=== PATIENT | female | born 1955 | race American Indian/Alaskan Native ===

== ENCOUNTER 2020-10-19 21:08 | Emergency (ER) | payer OTHER, SELFPAY ==
[2020-10-19 21:10] VITALS: BP 137/77; PULSE 93; RESP 18; TEMP 36.7; O2SAT 97; BMI 35.2
--- NOTE | 2020-10-19 21:13 | ED.GENADULT ---
HPI - General Adult General Chief complaint: General Medical Stated complaint: HYPERTENSION Time Seen by Provider: 10/19/20 21:12 Source: EMS Mode of arrival: EMS Limitations: no limitations History of Present Illness HPI narrative: Patient history of anxiety has not take her Ativan today, complaining of increased anxiety blood pressure was elevated when EMS reached 170/110 on arrival blood pressure is 137/77 patient does not have any history of hypertension her blood pressure to school high when she is stressed out. Patient ran out of her Ativan for last 3 days unable to sleep increased stress as 3 family members of COVID Related Data Previous Rx's Medication Instructions Recorded lorazepam [Ativan] 1 mg PO BEDTIME PRN #5 tab 10/19/20 Allergies Allergy/AdvReac Type Severity Reaction Status Date / Time No Known Allergies Allergy Unverified 07/04/20 19:52 [No Known Allergies*] Review of Systems Review of Systems: Constitutional : No Fever, No Chills ENT/Mouth : No Ear Pain, No Nasal Congestion, No sore throat Eyes: No Eye Pain, No Swelling, No Redness Cardiovascular : No Chest Pain, No SOB Respiratory : No Cough, No Sputum, No Dyspnea Gastrointestinal : No Nausea, No Vomiting, No Diarrhea, No Hematochezia, No Melena Genitourinary : No Dysuria, No Urinary Frequency, No Hematuria Musculoskeletal : No Myalgias Skin : No Skin Lesions, No rash Neuro : No Weakness, No Numbness, No Paresthesias, No Dizziness, No Headache Psych : positive Anxiety, neg Depression, neg SI/HI Heme/Lymph: No Lymphadenopathy Endocrine : No Polyuria, No Polydipsia PMFSH Past Medical History Medical History Anxiety Arthritis Fibromyalgia HTN (hypertension) Osteoarthritis Social History Social History Alcohol intake: never Smoking Status: Former smoker Smoked in Last 30 Days: No Use of substances other than those prescribed or required for medical reasons: No Advance Directives: No Advance Directives Information Provided: No Physical Exam Vital Signs: Vital Signs: Last Vital Signs Temp 98.0 F 10/19/20 21:10 Pulse 93 10/19/20 21:10 Resp 18 10/19/20 21:10 BP 137/77 01/02/21 21:10 Pulse Ox 97 10/19/20 21:10 Body Mass Index 35.2 Appearance: Alert. Oriented X3. No acute distress. Very Anxious Eyes: Pupils equal, round and reactive to light. ENT: Pharynx normal. Neck: Normal inspection. Neck supple. CVS: Normal heart rate and rhythm. Pulses normal. Respiratory: No respiratory distress. Breath sounds normal. Abdomen: Soft and nontender. Bowel sounds are present, no mass palpable, no CVA tenderness Skin: Skin warm and dry. Normal skin color. Normal skin turgor. Extremities: No lower extremity edema. Neuro: Oriented X 3. No motor deficit. No sensory deficit. Discharge Plan Discharge Clinical Impression: Anxiety Patient Disposition: Home, Self-Care Instructions: Anxiety (ED) Additional Instructions: Take medication as prescribed and follow-up with PCP Prescriptions: New lorazepam [Ativan] 1 mg tablet 1 mg PO BEDTIME PRN (Reason: anxiety) Qty: 5 RF: 0 Interventions: ED Discharge Assessment Last Done: 10/19/20 21:56 Discharge Date/Time: 10/19/20 21:57
[2020-10-19] MEDS: diphenhydrAMINE HCL 25 MG TABLET PO (21:51)
[2020-10-19] MEDS: LORazepam 1 MG TABLET PO (21:51)
== END 2020-10-19 21:57 | disposition home or self-care (01) ==
PROVIDERS: Emergency Provider Internal Medicine
DX: F41.9 Anxiety disorder, unspecified (principal); I10 Essential (primary) hypertension; Z72.89 Other problems related to lifestyle; Z63.4 Disappearance and death of family member
CPT/HCPCS: 99283; 99284; Q0163

== ENCOUNTER 2021-05-17 17:09 | Emergency (ER) | payer OTHER, SELFPAY ==
--- NOTE | ~2021-05-17 | XR_ITS ---
EXAMINATION: XR CHEST, 2 VIEWS CLINICAL INFORMATION: Pain COMPARISON: None TECHNIQUE: PA and lateral views of the chest were obtained. FINDINGS: Linear opacity in the lateral aspect of the left lung base likely corresponds to pleural parenchymal scarring or plate like atelectasis. No consolidation, pneumothorax, pleural effusion. Cardiac and mediastinal contours are normal. Pulmonary vasculature is normal. No acute osseous findings. XR/XR chest 2V IMPRESSION: No acute cardiopulmonary findings. Linear platelike atelectasis vs. scarring in the left lung base.
--- NOTE | ~2021-05-17 | CT_ITS ---
EXAMINATION: CT CERVICAL SPINE WITHOUT CONTRAST CLINICAL INFORMATION: Pain status post injection. COMPARISON: None TECHNIQUE: Multidetector volumetric imaging was obtained through the cervical spine without contrast. Multiplanar reformatted images in coronal and sagittal orientations were submitted. This CT examination was performed using dose optimization techniques as appropriate, variously including the following: *Automated exposure control *Adjustment of mA and/or kV according to patient size (this includes techniques or standardized protocols for targeted exams where dose is matched to indication/reason for exam; i.e. extremities or head) *Use of iterative reconstruction technique DLP: 497 mGy-cm FINDINGS: Vertebral body heights are normal. No fractures of the vertebral bodies or posterior elements. Reversal of the normal cervical lordosis is likely positional or degenerative. No vertebral body or posterior element subluxation. Small marginal osteophytes are present at the articulations of the dens and the anterior arch of C1. The craniocervical and atlantoaxial articulations are otherwise normal. Postsurgical changes of prior interbody fusion are evident at C4-C5, C5-C6, and C6-C7. There is solid osseous fusion at the C5-C6 level. No appreciable osseous union is present around the interbody grafts at C4-C5 and C6-C7. There is moderate degenerative disc disease at C3-C4 and around the grafts at the C4-C5 and C6-C7 levels. 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 There is multilevel facet arthropathy, most notably on the left at C3-C4 and T1-T2 and on the right at T1-T2. Neural foraminal encroachment is most notable at C5-C6 on the right and C3-C4 on the left. No significant paravertebral soft tissue swelling. Cervical soft tissues are unremarkable. Imaged portions of the lung apices are clear. CT/CT cervical spine wo con IMPRESSION: 1. No acute fracture in the cervical spine. 2. Status post interbody fusion from C4-C5 through C6-C7 without appreciable osseous bridging across the interbody spaces at C4-C5 and C6-C7. There is significant degenerative disc disease at these 2 levels in addition to C3-C4. 3. 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 4. Multilevel neural foraminal encroachment, most notably on the right at C5-C6 and at C3-C4 on the left.
[2021-05-17 17:20] VITALS: BP 153/78; PULSE 80; RESP 20; TEMP 36.1; O2SAT 97; BMI 31.6
--- NOTE | 2021-05-17 17:30 | ED.GENADULT ---
HPI - General Adult General Chief complaint: General Medical Stated complaint: SOB Source: patient and family Mode of arrival: ambulatory Limitations: no limitations History of Present Illness HPI narrative: 65-year-old female with past medical history of anxiety, arthritis, fibromyalgia, osteoarthritis, hypertension presents with 10/10 neck pain with body aches. Stated that she received a cortisone injection on 05/12/2021 from a [facility] pain management provider, feels that her symptoms have gotten worse and is asking for pain management. She stated that the last time she went to [facility] they gave her pain medication by IV which alleviated all of her pain. She states that she is unable to get comfortable and having a difficult time sleeping. Patient states to have pain in every part of her body, but denies fevers, chills, palpitations, dizziness, lightheadedness, dysuria, hematuria, edema, nausea, vomiting, diarrhea and constipation. Onset (ago): unknown Location: head, neck, chest, back, abdomen, pelvis, buttocks, upper extremity and lower extremity Severity: severe Severity scale (1-10): 10 Quality: aching Pain Consistency: constant Relieving factors: none Exacerbating factors: movement Associated symptoms: denies other symptoms Treatments prior to arrival: none Related Data Previous Rx's Medication Instructions Recorded lorazepam 1 mg tablet (Ativan) 1 mg PO BEDTIME PRN #5 tab 10/19/20 Allergies Allergy/AdvReac Type Severity Reaction Status Date / Time acetaminophen [From Tylenol] Allergy Shortness Verified 05/17/21 17:25 of Breath Review of Systems Review of Systems: Constitutional: No Fever, No Chills ENT/Mouth: No Ear Pain, No Hoarseness, No sore throat Eyes: No Eye Pain, No Swelling, No Redness, No Foreign Body Cardiovascular: No Chest Pain, No SOB Respiratory: No Cough, No Dyspnea Gastrointestinal: No Nausea, No Vomiting, No Diarrhea, No abdominal Pain Genitourinary: No Dysuria, No Hematuria Musculoskeletal: positive body pain, neck pain, No Myalgias, No Joint Swelling Skin: No Skin lacerations, No rash Neuro: No Weakness, No Numbness, No Paresthesias, No Loss of Consciousness, No Dizziness, No Headache Psych: No Anxiety/Panic, No Depression Heme/Lymph: no easy bruising, no Lymphadenopathy Endocrine: No Polyuria, No Polydipsia Yes all other systems are reviewed and are negative [facility] Past Medical History Attestation statement: The following information was validated with the patient. Source: old records reviewed Medical History Anxiety Arthritis Fibromyalgia HTN (hypertension) Osteoarthritis Social History Social History Alcohol intake: never Patient Tobacco Use Status: Never used Tobacco Use of substances other than those prescribed or required for medical reasons: No Advance Directives: No Advance Directives Information Provided: Yes Physical Exam Vital Signs: Vital Signs: Last Vital Signs Temp 97.8 F 05/17/21 19:40 Pulse 74 05/17/21 19:40 Resp 16 05/17/21 19:49 BP 138/73 05/17/21 19:40 Pulse Ox 99 05/17/21 19:40 Body Mass Index 31.6 Appearance: Alert. Oriented X3. Moderate distress. Eyes: Pupils equal, round and reactive to light. EOMI, sclera nonicteric ENT: Pharynx normal. Neck: Normal inspection. Neck supple. Cervical spine tender to palpation, please refer to course noted. CVS: Normal heart rate and rhythm. Pulses normal. Respiratory: No respiratory distress. Breath sounds normal. Abdomen: Soft and nontender. Skin: Skin warm and dry. Normal skin color. Normal skin turgor. Extremities: No lower extremity edema. Moves all extremities against resistance. Gait well balanced well coordinated. Neuro: No motor deficit. No sensory deficit. Cranial nerves 2-12 intact. Course Course Course Narrative: 65-year-old female presents with 10/10 pain to her entire body after a cortisone injection to her neck on 05/12/2021. Stated that she has been followed by a ceramic painter at [facility], has had multiple injections to her spine cervical spine in the past however this 1 did not work. She is reporting 10/10 pain everywhere, upon my examination she reported that every part of her body that I physically touched had 10/10 pain. She is asking for Dilaudid because they gave it to her once at [facility] and it took all of her pain way. I did explain to her that Dilaudid was not recommended at this time. I will order CT scan of cervical spine, chest x-ray and lab values. Patient is ambulatory, moves all extremities against resistance, appears nontoxic and is afebrile. Vital signs are within normal limits with an elevated blood pressure of 153/78. Labs have an elevated white count of 16.6 which is consistent with cortisone injection, CT scan of spine shows chronic degenerative changes. Chest x-ray is negative. Patient is continuing to ask for Dilaudid, asking multiple persons for this medication. Multiple discussions with patient and daughter that she would not be receiving Dilaudid nor would she be receiving a prescription for pain management opioids. She does have a ceramic painter and was referred back to her PCP and or pain management. Patient was not receptive to education regarding opioids and that opioids are not ideal for chronic pain. Patient is dissatisfied with care. Medical Decision Making Differential Diagnosis Differential Diagnosis: Chronic pain, cervical spine fracture, osteonecrosis the spine, abscess Medical Records Medical records reviewed: Yes I reviewed the patient's medical records. Lab Data Lab results reviewed: Yes I reviewed the patient's lab results. Result diagrams: 05/17/21 18:13 05/17/21 18:14 Labs: Lab Results 05/17/21 05/17/21 Range/Units 18:13 18:14 WBC 16.6 H (4.8-10.8) X10*3/uL RBC 4.41 (4.20-5.50) X10*6/uL Hgb 13.8 (12.0-16.0) g/dl Hct 40.6 (37-47) % MCV 92.1 (80-98) fL MCH 31.3 (27.0-33.0) pg MCHC 34.0 (31.0-35.0) g/dl RDW 13.1 (11.0-16.0) % Plt Count 202 (160-400) X10*3/uL MPV Not Reportable Immature Gran % (Auto) 0.5 H (0.0-0.4) % Neut % (Auto) 76.9 H (45-73) % Lymph % (Auto) 14.1 L (20-40) % Archuleta % (Auto) 8.2 (2-11) % Eos % (Auto) 0.2 (0-4) % Baso % (Auto) 0.1 (0-2) % Lymph # (Auto) 2.3 (1.2-4.9) X10*3/uL Archuleta # (Auto) 1.4 H (0.1-1.2) X10*3/uL Eos # (Auto) 0.0 (0.0-0.4) X10*3/uL Baso # (Auto) 0.0 (0.0-0.2) X10*3/uL Abs Immat Gran (auto) 0.08 H (0.00-0.03) X10*3/uL Absolute Neuts (auto) 12.8 H (2.0-8.3) X10*3/uL Absolute Nucleated RBC 0.000 (0.0-0.012) X10*3/uL Nucleated RBC % (auto) 0.0 (0.0-0.2) /100WBC Sodium 140 (135-145) mmol/L Potassium 4.1 (3.3-5.1) mmol/L Chloride 105 (96-108) mmol/L Carbon Dioxide 24 (22-29) mmol/L Anion Gap 15 (12-20) BUN 18 H (9-16) mg/dL Creatinine 0.73 (0.5-1.4) mg/dL Estim Creat Clear Calc 72.6 Estimated GFR > 60 Random Glucose 111 (60-115) mg/dL Calcium 9.6 (8.4-10.2) mg/dL Imaging Data CT scan cervical spine: Attestation: I personally reviewed and interpreted this imaging study as follows: Radiologist's impression: CLINICAL INFORMATION: Pain status post injection.? COMPARISON: None? TECHNIQUE: Multidetector volumetric imaging was obtained through the cervical spine without contrast. Multiplanar reformatted images in coronal and sagittal orientations were submitted.? This CT examination was performed using dose optimization techniques as appropriate, variously including the following: *Automated exposure control *Adjustment of mA and/or kV according to patient size (this includes techniques or standardized protocols for targeted exams where dose is matched to indication/reason for exam; i.e. extremities or head) *Use of iterative reconstruction technique DLP: 497 mGy-cm FINDINGS: Vertebral body heights are normal. No fractures of the vertebral bodies or posterior elements. Reversal of the normal cervical lordosis is likely positional or degenerative. No vertebral body or posterior element subluxation. Small marginal osteophytes are present at the articulations of the dens and the anterior arch of C1. The craniocervical and atlantoaxial articulations are otherwise normal.? Postsurgical changes of prior interbody fusion are evident at C4-C5, C5-C6, and C6-C7. There is solid osseous fusion at the C5-C6 level. No appreciable osseous union is present around the interbody grafts at C4-C5 and C6-C7. There is moderate degenerative disc disease at C3-C4 and around the grafts at the C4-C5 and C6-C7 levels. 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 There is multilevel facet arthropathy, most notably on the left at C3-C4 and T1-T2 and on the right at T1-T2. Neural foraminal encroachment is most notable at C5-C6 on the right and C3-C4 on the left. No significant paravertebral soft tissue swelling. Cervical soft tissues are unremarkable. Imaged portions of the lung apices are clear. CT/CT cervical spine wo con IMPRESSION: 1. No acute fracture in the cervical spine. 2. Status post interbody fusion from C4-C5 through C6-C7 without appreciable osseous bridging across the interbody spaces at C4-C5 and C6-C7. There is significant degenerative disc disease at these 2 levels in addition to C3-C4. 3. 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 4. Multilevel neural foraminal encroachment, most notably on the right at C5-C6 and at C3-C4 on the left. Chest x-ray: Attestation: I personally reviewed and interpreted this imaging study as follows: Radiologist's impression: EXAMINATION: XR CHEST, 2 VIEWS CLINICAL INFORMATION: Pain COMPARISON: None TECHNIQUE: PA and lateral views of the chest were obtained. FINDINGS: Linear opacity in the lateral aspect of the left lung base likely corresponds to pleural parenchymal scarring or plate like atelectasis. No consolidation, pneumothorax, pleural effusion. Cardiac and mediastinal contours are normal. Pulmonary vasculature is normal. No acute osseous findings. XR/XR chest 2V IMPRESSION: No acute cardiopulmonary findings. Linear platelike atelectasis vs. scarring in the left lung base. Discharge Plan Discharge Clinical Impression: Neck pain Patient Disposition: Home, Self-Care Instructions: Fibromyalgia (ED), Neck Pain (ED), Chronic Neck Pain (DC) Additional Instructions: You were evaluated for generalized body pain after a neck injection. Your CT scan does not show any abscesses or acute findings requiring emergent intervention. Your CT scan does show degenerative disc disease which you have been being treated for by ceramic painter. Your chest x-ray is negative for acute findings. Your lab values indicate elevated white count, which is consistent with your recent cortisone injection. At this time, we cannot prescribe pain medications for you. Please continue to follow-up with pain management. Thank you for choosing this emergency department for evaluation. Please follow-up with primary care physician as needed. Return to the emergency department for any new, concerning, or worsening symptoms. Prescriptions: No Action lorazepam [Ativan] 1 mg tablet 1 mg PO BEDTIME PRN (Reason: anxiety) Qty: 5 RF: 0 Interventions: ED Discharge Assessment Last Done: 05/17/21 20:03 Discharge Date/Time: 05/17/21 20:05
[2021-05-17 18:17] VITALS: BP 135/75; PULSE 73; RESP 13; TEMP 36.5; O2SAT 98
[2021-05-17 18:22] LABS: Basophils Percent Auto 0.1 % (0-2); Eosinophils Percent Auto 0.2 % (0-4); Imm Gran Pct Auto 0.5 % (0.0-0.4); SCAN SMEAR FLAG 1
[2021-05-17 18:24] LABS: Hematocrit 40.6 % (37-47); Hemoglobin 13.8 g/dl (12.0-16.0); Imm Gran Abs Auto 0.08 X10*3/uL (0.00-0.03); Lymphocytes Absolute Auto 2.3 X10*3/uL (1.2-4.9); Lymphocytes Percent Auto 14.1 % (20-40); Mean Corpuscular Hemoglobin 31.3 pg (27.0-33.0); Mean Corpuscular Volume 92.1 fL (80-98); Monocytes Absolute Auto 1.4 X10*3/uL (0.1-1.2); Monocytes Percent Auto 8.2 % (2-11); Neutrophils Absolute Auto 12.8 X10*3/uL (2.0-8.3); Neutrophils Percent Auto 76.9 % (45-73); Platelet Count 202 X10*3/uL (160-400); Red Blood Count 4.41 X10*6/uL (4.20-5.50); Red Cell Distribution Width 13.1 % (11.0-16.0); White Blood Count 16.6 X10*3/uL (4.8-10.8)
[2021-05-17 18:29] LABS: MANUAL DIFF FLAG NO; PLT ABN DIST 1
[2021-05-17] MEDS: Morphine Sulfate 4 MG/ML CARTRIDGE IVPUSH (18:31)
[2021-05-17 18:41] LABS: Anion Gap 15 (12-20); Blood Urea Nitrogen 18 mg/dL (9-16); Calcium 9.6 mg/dL (8.4-10.2); Carbon Dioxide 24 mmol/L (22-29); Chloride 105 mmol/L (96-108); Creatinine Clr Calc Pharmacy 72.6; Estimated Glomerular Filt Rate > 60; Glucose Random 111 mg/dL (60-115); Potassium 4.1 mmol/L (3.3-5.1); Sodium 140 mmol/L (135-145)
[2021-05-17 18:44] VITALS: O2SAT 97
[2021-05-17 19:40] VITALS: BP 138/73; PULSE 74; RESP 16; TEMP 36.6; O2SAT 99
[2021-05-17 19:49] VITALS: RESP 16
[2021-05-17] MEDS: Morphine Sulfate 2 MG/ML CARTRIDGE IVPUSH (19:49)
[2021-05-17] MEDS: oxyCODONE HCl Immed Release 5 MG TABLET PO (19:49)
== END 2021-05-17 20:05 | disposition home or self-care (01) ==
PROVIDERS: Nurse Practitioner Family; Emergency Provider Emergency Medicine Emergency Medical Services
DX: M54.2 Cervicalgia (principal); I10 Essential (primary) hypertension; F41.9 Anxiety disorder, unspecified; M79.7 Fibromyalgia; Z79.899 Other long term (current) drug therapy
CPT/HCPCS: 36415; 71046; 72125; 80048; 85025; 96374; 96375; 96376; 99284; J2270; J2405

== ENCOUNTER 2021-11-18 12:55 | Outpatient (REF) | payer OTHER, SELFPAY ==
[2021-11-18 15:17] LABS: TSH reflex Free T4 0.92 uIU/mL (0.32-4.0)
== END 2021-11-18 12:56 | disposition home or self-care (01) ==
LOC: HO.HMGCLDS 12:55
PROVIDERS: Visit Provider Internal Medicine
DX: R03.0 Elevated blood-pressure reading, without diagnosis of hypertension (principal); F33.9 Major depressive disorder, recurrent, unspecified; E66.3 Overweight; F41.1 Generalized anxiety disorder
CPT/HCPCS: 36415; 84443

== ENCOUNTER → 2021-11-24 12:49 | Outpatient (BNVA) | payer OTHER, SELFPAY | PROVIDERS: PCP Internal Medicine; Visit Provider Internal Medicine | DX: M25.521 Pain in right elbow (principal); M79.18 Myalgia, other site | CPT/HCPCS: 20553; 20605; J3300 ==

== ENCOUNTER → 2022-01-19 08:03 | Outpatient (BNVA) | payer OTHER, SELFPAY | PROVIDERS: PCP Internal Medicine; Visit Provider Internal Medicine | DX: M79.18 Myalgia, other site (principal); M25.512 Pain in left shoulder; M25.522 Pain in left elbow | CPT/HCPCS: 20553; 99212 ==

== ENCOUNTER 2022-02-25 18:08 | Emergency (ER) | payer OTHER, SELFPAY ==
--- NOTE | ~2022-02-25 | CT_ITS ---
Indication: Trauma EXAMINATION: CT chest enhanced CT the abdomen Axial imaging with coronal and sagittal reformatted images. This CT examination was performed using dose optimization techniques as appropriate, variously including the following: *Automated exposure control *Adjustment of mA and/or kV according to patient size (this includes techniques or standardized protocols for targeted exams where dose is matched to indication/reason for exam; i.e. extremities or head) *Use of iterative reconstruction technique. Radiation dose is 610 and 302. There are no films to compare. CT chest; The thoracic inlet is within normal limits. No free fluid in the mediastinum. There is no bulky adenopathy. The hilar regions do not appear pathologically enlarged. Imaging the lung snyder. Right lung; There is no pneumothorax. There is no effusion. Mild dependent atelectasis. Minimal groundglass opacities. Left lung; No pneumothorax. There is no effusion. Mild basilar atelectasis and again some groundglass dependent changes. Review of the bone windows does not demonstrate evidence for fracture. Upper abdomen; Liver is within normal limits. Spleen is within normal limits. Region of the portal within normal limits. Area the pancreas grossly within normal limits. The adrenal glands grossly normal. There is no free fluid in the upper abdomen. Bladder is within normal limits. No acute finding in the kidneys. Pelvis parapelvic cystic formation versus mild hydronephrosis but the ureter is not dilated. Consider ultrasound to further evaluate. The bowel pattern is nonobstructing. Again no free fluid is noted. No suspicious finding in the pelvis. Mildly prominent uterine structure for age. There is no bulky adenopathy. Calcified vasculature is noted. Scattered diverticula disease. Review of the bone windows demonstrates hardware in the lower lumbar sacral spine. Anterolisthesis of L5 on S1. Some loss of superior height at L5 L3 and and loss of inferior height at L1 and L2 may represent the patient's baseline. CT/CT abdomen pelvis wo con IMPRESSION: No suspicious finding chest abdomen pelvis to suggest visceral injury. In the chest some patchy areas of groundglass change and atelectasis are noted in the dependent lung zones. No pneumothorax or effusion. No fracture. No acute finding in the abdomen pelvis. No free fluid. The bowel pattern is within normal limits. Hardware in the lower lumbar sacral spine and several areas of loss of vertebral bodies central height which may well be chronic. Mild acute compression cannot be completely excluded. There are no previous exams to compare. If further evaluation is warranted consider MRI. Parapelvic cysts versus mild central hydronephrosis in the left kidney. Recommend ultrasound for full evaluation
--- NOTE | ~2022-02-25 | CT_ITS ---
EXAMINATION: CT LUMBAR SPINE WITHOUT CONTRAST CLINICAL INFORMATION: Fall down stairs. Lumbar spine tenderness. COMPARISON: None TECHNIQUE: Multidetector helical imaging acquired in the axial plane with generation of reformatted acquisitions. This CT examination was performed using dose optimization techniques as appropriate, variously including the following: *Automated exposure control. *Adjustment of mA and/or kV according to patient size (this includes techniques or standardized protocols for targeted exams where dose is matched to indication/reason for exam; i.e. extremities or head). *Use of iterative reconstruction technique. DLP: 473 mGy-cm FINDINGS: The patient is status post previous posterior lumbar fusion with hardware instrumentation from the L4 through the S1 levels. No obvious hardware fracture or periprosthetic lucency is seen. There is a solid arthrodesis demonstrated from the L4 through the S1 levels posterolaterally. There are mild endplate concavities at the L4 level and affecting the superior endplate of L5 which are age-indeterminate. Post laminectomy changes noted at the L4-L5 and L5-S1 levels. There is a mild anterior subluxation at L5-S1 with endplate spurring and vacuum disc phenomenon. Significant foraminal narrowing evident at the L5-S1 level bilaterally. There is an age-indeterminate superior endplate compression deformity as well at the L3 level. Mild retrosubluxation noted at the L2-L3 level with endplate spurring, a diffuse disc bulge, and facet arthropathy resulting in severe central canal stenosis and thecal sac compression. Although not well assessed due to hardware artifacts, there is suspected moderate central canal stenosis at the L3-L4 level. Diffuse disc bulge noted at the L1-L2 level with endplate spurring and facet arthropathy resulting in mild central canal stenosis and [id number] foraminal narrowing. There are mild inferior endplate concavities at the T12 and L1 levels with degenerative Schmorl's nodes. Parapelvic renal cysts noted on the left side. The lung bases are grossly clear. CT/CT lumbar spine wo con IMPRESSION: 1. Multilevel age-indeterminate mild endplate concave deformities in the thoracolumbar spine for which the possibility of a subtle acute compression fracture cannot be ruled out. Status post posterior lumbar instrumented fusion with a solid arthrodesis from the L4 through the S1 levels. 2. Retrosubluxation and spondylosis at the L2-L3 level resulting in severe central canal stenosis. Moderate central canal stenosis suspected at the L3-L4 level. Vacuum disc phenomenon and anterolisthesis with severe bilateral foraminal narrowing at the L5-S1 level.
[2022-02-25 18:16] VITALS: BP 147/55; PULSE 75; O2SAT 99
[2022-02-25 18:22] VITALS: BP 137/60; PULSE 68; RESP 18; TEMP 36.7; O2SAT 97; BMI 33.0
--- NOTE | 2022-02-25 18:33 | ED.FALL ---
HPI - Fall General Chief Complaint: Fall Stated Complaint: fall Time Seen by Provider: 02/25/22 18:33 Source: patient Mode of arrival: EMS Limitations: no limitations History of Present Illness HPI Narrative: 66-year-old female who presents emergency department for evaluation of back pain and chest pain after falling down stairs at home. Patient states she was going down her stairs when she slipped and fell landing on her back. She states that she fell down approximately 7 steps. She denies hitting her head or losing consciousness. She is only complaining of the pain in her upper and lower back. She states that the pain is a constant, sharp pain which is 10/10, the pain is worse with movement. She denies headache, nausea, vomiting, neck pain. She states that her chest does her but she denies shortness of breath. MD complaint: fall Onset (ago): hour(s) (1) Fall from: down stairs (#) (7) Fall witnessed: no Place fall occurred: home Loss of consciousness: none Prolonged down time: no Symptoms prior to fall: none Context: tripped/slipped Location of injury: chest and back Severity: severe Severity scale (1-10): 10 Quality: sharp Associated symptoms (after fall): denies Related Data Previous Rx's Medication Instructions Recorded diclofenac sodium 1 % topical gel 4 g TOPICAL QID #100 g 12/25/21 (Voltaren Arthritis Pain) albuterol sulfate 0.63 mg/3 mL 0.63 mg (3 mL) INHALATION QID PRN 01/21/22 solution for nebulization 90 Days #75 ml albuterol sulfate 90 mcg/actuation 1 inh INHALATION QID PRN 30 Days 01/21/22 aerosol inhaler (ProAir HFA) #18 g cyclobenzaprine 5 mg tablet 5 mg PO BEDTIME PRN 90 Days #90 tab 01/21/22 diclofenac sodium 1 % topical gel 2 g TOPICAL QID 30 Days #100 g 01/21/22 (Voltaren Arthritis Pain) lisinopril 5 mg tablet 5 mg PO DAILY 90 Days #90 tab 01/21/22 meloxicam 15 mg tablet 15 mg PO DAILY 90 Days #90 tab 01/21/22 montelukast 10 mg tablet 10 mg PO DAILY 90 Days #90 tab 01/21/22 pantoprazole 40 mg tablet,delayed 40 mg PO DAILY 90 Days #90 tab 01/21/22 release simvastatin 20 mg tablet 20 mg PO DAILY 90 Days #90 tab 01/21/22 Blood pressure monitor #1 ea 01/26/22 nebulizer and compressor (Comp-Air #1 ea 01/26/22 Nebulizer Compressor) prednisone 20 mg tablet See Rx Instructions PO ONCE 12 02/17/22 Days #17 tab capsicum oleoresin 0.025 % topical See Rx Instructions TOPICAL 02/24/22 cream .B.i.d. PRN 90 Days #120 g duloxetine 30 mg capsule,delayed 30 mg PO DAILY 30 Days #30 cap 02/24/22 release (Cymbalta) Allergies Allergy/AdvReac Type Severity Reaction Status Date / Time acetaminophen [From Tylenol] Allergy Shortness Verified 01/19/22 08:10 of Breath PMFSH Past Medical History Medical History Anxiety Arthritis Fibromyalgia HTN (hypertension) Myofascial muscle pain Osteoarthritis Family History Family History Other Mental health disorder Social History Social History Housing: Apartment Alcohol intake: never Patient Tobacco Use Status: Never used Tobacco Advance Directives: No Advance Directives Information Provided: No Current occupational status: unemployed Physical Exam Vital Signs: Vital Signs: Last Vital Signs Temp 98.8 F 02/25/22 21:02 Pulse 63 02/25/22 21:02 Resp 98 H 02/25/22 21:02 BP 140/73 H 02/25/22 21:02 Pulse Ox 98 02/25/22 21:02 BMI result Body Mass Index 33.0 Const: Other: Awake, alert, female patient, very pleasant cooperative, she does appear to be in distress secondary to her pain HEENT: Head: Yes normal to inspection, Yes normocephalic and Yes atraumatic Ears: external ears normal General nose exam: Normal external nose present Face and sinus: Yes normal facial exam Mouth: Normal oral and palatal mucosa present Throat: Yes posterior oropharynx normal Eyes: General: appearance normal, both eyes and all related structures Pupils: Equal, round and reactive pupils present Neck: Neck: Yes normal visual inspection, Yes no lymphadenopathy, Yes trachea midline and Yes supple Chest: Other: Patient has tenderness palpation of her posterior chest bilaterally, there is no crepitus, no ecchymosis Resp: Effort & Inspection: normal respiratory effort and able to speak in complete sentences Auscultation: clear to auscultation bilaterally Cardio: Rate: regular rate Rhythm: regular rhythm Heart sounds: S1 normal heart sound present, S2 normal heart sound present and no murmurs GI: Inspection: Yes normal to inspection Palpation (GI): Soft to palpation, nontender and no guarding Auscultation: normal bowel sounds Back/Spine/Pelvis: Other: Tenderness palpation of the patient's lumbar and sacral spine, also tenderness palpation of her lumbar sacral paraspinal muscles with no ecchymosis noted Skin: General skin exam: no rashes or lesions noted Neuro: Cranial nerves: Yes CN's II-XII intact bilaterally and Yes Equal, round and reactive pupils present Cognition (Neuro): normal cognition Motor exam (neuro): 5/5 motor strength present throughout Extrem: General: Yes normal to inspection Psych: Appearance: grossly normal Speech and movement: Normal speech and movement present Affect: normal affect Attitude: cooperative Thought process: Normal thought process present Thought content: Normal thought content present Course Course Course Narrative: 66-year-old female who presents emergency department for evaluation of a trip and fall at home down 7 steps. Patient had no loss of consciousness, no head injury. She is currently complaining of back pain only. Vital signs were normal. Patient does have posterior chest wall tenderness, tenderness palpation of the lumbar sacral paraspinal muscles and spine. Her neurologic exam was nonfocal. I did order a CT scan of the patient's chest abdomen pelvis as well as CT scan the patient's lumbar sacral spine. Patient's pain was treated with Dilaudid 1 mg IV and Benadryl 25 mg IV. 2116: Laboratory evaluation: CBC and CMP were unremarkable ETOH was below detectable limits. The patient's CT scan of the chest, abdomen, pelvis and the CT scan of the lumbar sacral spine is also pending. The patient is resting comfortably after receiving IV Dilaudid and Benadryl. At the end of my shift patient's care was turned over my colleague, Dr. Holley Quintanilla. - Fall Lab Data Result diagrams: 02/25/22 18:45 02/25/22 18:45 Labs: Lab Results 02/25/22 02/25/22 02/25/22 Range/Units 18:45 18:45 18:45 WBC 7.0 (4.8-10.8) X10*3/uL RBC 4.27 (4.20-5.50) X10*6/uL Hgb 13.1 (12.0-16.0) g/dl Hct 39.1 (37.0-47.0) % MCV 91.6 (80.0-98.0) fL MCH 30.7 (27.0-33.0) pg MCHC 33.5 (31.0-35.0) g/dl RDW 13.5 (11.0-16.0) % Plt Count 249 (160-400) X10*3/uL MPV 11.3 (9.4-12.3) fL Immature Gran % (Auto) 0.3 (0.0-0.4) % Neut % (Auto) 59.1 (45-73) % Lymph % (Auto) 32.0 (20-40) % [facility] % (Auto) 8.0 (2-11) % Eos % (Auto) 0.3 (0-4) % Baso % (Auto) 0.3 (0-2) % Lymph # (Auto) 2.2 (1.2-4.9) X10*3/uL [facility] # (Auto) 0.6 (0.1-1.2) X10*3/uL Eos # (Auto) 0.0 (0.0-0.4) X10*3/uL Baso # (Auto) 0.0 (0.0-0.2) X10*3/uL Abs Immat Gran (auto) 0.02 (0.00-0.03) X10*3/uL Absolute Neuts (auto) 4.1 (2.0-8.3) x10*3/uL Absolute Nucleated RBC 0.000 (0.0-0.012) X10*3/uL Nucleated RBC % (auto) 0.0 (0.0-0.2) /100WBC PT 11.3 (9.9-13.0) SEC INR 1.0 (0.9-1.1) APTT 30.8 (24.1-38.0) SEC Sodium 142 (135-145) mmol/L Potassium 3.7 (3.3-5.1) mmol/L Chloride 110 H (96-108) mmol/L Carbon Dioxide 27 (22-29) mmol/L Anion Gap 9 L (12-20) BUN 12 (9-16) mg/dL Creatinine 0.66 (0.5-1.4) mg/dL Estim Creat Clear Calc 81.0 Estimated GFR > 60 Random Glucose 103 (60-115) mg/dL Calcium 9.0 D (8.4-10.2) mg/dL Total Bilirubin 0.4 (0.0-1.0) mg/dL AST 13 (5-31) U/L ALT 6 (0-31) U/L Alkaline Phosphatase 79 (39-117) U/L Total Protein 6.1 L (6.5-8.0) g/dL Albumin 3.6 (3.5-5.0) g/dL Lipase 29 (8-78) U/L Ethyl Alcohol mg/dL 02/25/22 Range/Units 18:45 WBC (4.8-10.8) X10*3/uL RBC (4.20-5.50) X10*6/uL Hgb (12.0-16.0) g/dl Hct (37.0-47.0) % MCV (80.0-98.0) fL MCH (27.0-33.0) pg MCHC (31.0-35.0) g/dl RDW (11.0-16.0) % Plt Count (160-400) X10*3/uL MPV (9.4-12.3) fL Immature Gran % (Auto) (0.0-0.4) % Neut % (Auto) (45-73) % Lymph % (Auto) (20-40) % [facility] % (Auto) (2-11) % Eos % (Auto) (0-4) % Baso % (Auto) (0-2) % Lymph # (Auto) (1.2-4.9) X10*3/uL [facility] # (Auto) (0.1-1.2) X10*3/uL Eos # (Auto) (0.0-0.4) X10*3/uL Baso # (Auto) (0.0-0.2) X10*3/uL Abs Immat Gran (auto) (0.00-0.03) X10*3/uL Absolute Neuts (auto) (2.0-8.3) x10*3/uL Absolute Nucleated RBC (0.0-0.012) X10*3/uL Nucleated RBC % (auto) (0.0-0.2) /100WBC PT (9.9-13.0) SEC INR (0.9-1.1) APTT (24.1-38.0) SEC Sodium (135-145) mmol/L Potassium (3.3-5.1) mmol/L Chloride (96-108) mmol/L Carbon Dioxide (22-29) mmol/L Anion Gap (12-20) BUN (9-16) mg/dL Creatinine (0.5-1.4) mg/dL Estim Creat Clear Calc Estimated GFR Random Glucose (60-115) mg/dL Calcium (8.4-10.2) mg/dL Total Bilirubin (0.0-1.0) mg/dL AST (5-31) U/L ALT (0-31) U/L Alkaline Phosphatase (39-117) U/L Total Protein (6.5-8.0) g/dL Albumin (3.5-5.0) g/dL Lipase (8-78) U/L Ethyl Alcohol < 10 mg/dL Discharge Plan Discharge Clinical Impression: Fall (on) (from) other stairs and steps, initial encounter Chest wall contusion Qualifiers: Encounter type: initial encounter Laterality: unspecified laterality Qualified Code(s): S20.219A - Contusion of unspecified front wall of thorax, initial encounter Back contusion Qualifiers: Encounter type: initial encounter Laterality: unspecified laterality Qualified Code(s): S20.229A - Contusion of unspecified back wall of thorax, initial encounter Patient Disposition: Still a Patient Prescriptions: No Action diclofenac sodium [Voltaren Arthritis Pain] 1 % gel 4 g topical QID Qty: 100 0RF Rx Instructions: apply to single knee, ankle, foot; for foot includes sole/toes/top of foot NOT TO BE USED AT THE SAME TIME MELOXICAM (DME) nebulizer and compressor [Comp-Air Nebulizer Compressor] Device See Rx Instructions .Route Qty: 1 0RF Rx Instructions: As directed (DME) Blood pressure monitor See Rx Instructions .Route .MEDSUPPLY Qty: 1 0RF Rx Instructions: As directed prednisone 20 mg tablet See Rx Instructions PO ONCE 12 Days Qty: 17 0RF Rx Instructions: PO once; 3 tabs for 2 days, then 2 tabs for 3 days, then 1 tab for 3 days, then half tab for 4 days duloxetine [Cymbalta] 30 mg capsule,delayed release(DR/EC) 30 mg PO DAILY 30 Days Qty: 30 0RF capsicum oleoresin 0.025 % cream See Rx Instructions topical .B.i.d. PRN (Reason: Arthritic pain) 90 Days Qty: 120 3RF Rx Instructions: topical .B.i.d. PRN; montelukast 10 mg tablet 10 mg PO DAILY 90 Days Qty: 90 1RF cyclobenzaprine 5 mg tablet 5 mg PO BEDTIME PRN (Reason: muscle spasm) 90 Days Qty: 90 0RF pantoprazole 40 mg tablet,delayed release (DR/EC) 40 mg PO DAILY 90 Days Qty: 90 1RF simvastatin 20 mg tablet 20 mg PO DAILY 90 Days Qty: 90 1RF lisinopril 5 mg tablet 5 mg PO DAILY 90 Days Qty: 90 1RF albuterol sulfate [ProAir HFA] 90 mcg/actuation HFA aerosol inhaler 1 inh inhalation QID PRN (Reason: shortness of breath or wheezing) 30 Days Qty: 18 3RF meloxicam 15 mg tablet 15 mg PO DAILY 90 Days Qty: 90 0RF diclofenac sodium [Voltaren Arthritis Pain] 1 % gel 2 g topical QID 30 Days Qty: 100 4RF Rx Instructions: apply to single elbow, wrist or hand; for hand includes palm/fingers/back of hand albuterol sulfate 0.63 mg/3 mL solution for nebulization 0.63 mg inhalation QID PRN (Reason: shortness of breath or wheezing) 90 Days Qty: 75 0RF
[2022-02-25 18:54] LABS: MANUAL DIFF FLAG NO
[2022-02-25 19:00] LABS: Basophils Percent Auto 0.3 % (0-2); Eosinophils Percent Auto 0.3 % (0-4); Hematocrit 39.1 % (37.0-47.0); Hemoglobin 13.1 g/dl (12.0-16.0); Imm Gran Abs Auto 0.02 X10*3/uL (0.00-0.03); Imm Gran Pct Auto 0.3 % (0.0-0.4); Lymphocytes Absolute Auto 2.2 X10*3/uL (1.2-4.9); Mean Corpuscular HGB Conc 33.5 g/dl (31.0-35.0); Mean Corpuscular Hemoglobin 30.7 pg (27.0-33.0); Mean Corpuscular Volume 91.6 fL (80.0-98.0); Mean Platelet Volume 11.3 fL (9.4-12.3); Monocytes Absolute Auto 0.6 X10*3/uL (0.1-1.2); Neutrophils Absolute Auto 4.1 x10*3/uL (2.0-8.3); Neutrophils Percent Auto 59.1 % (45-73); Platelet Count 249 X10*3/uL (160-400); Red Blood Count 4.27 X10*6/uL (4.20-5.50); Red Cell Distribution Width 13.5 % (11.0-16.0)
[2022-02-25 19:06] LABS: Prothrombin Time 11.3 SEC (9.9-13.0)
[2022-02-25 19:09] LABS: Partial Thromboplastin Time 30.8 SEC (24.1-38.0)
[2022-02-25 19:10] LABS: Ethanol < 10 mg/dL
[2022-02-25 19:15] LABS: Alanine Aminotransferase 6 U/L (0-31); Albumin Level 3.6 g/dL (3.5-5.0); Alkaline Phosphatase 79 U/L (39-117); Anion Gap 9 (12-20); Aspartate Amino Transferase 13 U/L (5-31); Bilirubin Total 0.4 mg/dL (0.0-1.0); Blood Urea Nitrogen 12 mg/dL (9-16); Carbon Dioxide 27 mmol/L (22-29); Chloride 110 mmol/L (96-108); Estimated Glomerular Filt Rate > 60; Glucose Random 103 mg/dL (60-115); Lipase 29 U/L (8-78); Potassium 3.7 mmol/L (3.3-5.1); Sodium 142 mmol/L (135-145); Total Protein 6.1 g/dL (6.5-8.0)
[2022-02-25 19:46] VITALS: RESP 20
[2022-02-25] MEDS: diphenhydrAMINE HCL 50 MG/ML VIAL 25 MG IVPUSH (19:46)
[2022-02-25] MEDS: HYDROmorphone HCl 1 MG/ML SYRINGE IVPUSH (19:46)
[2022-02-25 21:02] VITALS: BP 140/73; PULSE 63; RESP 98; TEMP 37.1; O2SAT 98
[2022-02-25 21:43] VITALS: RESP 16
[2022-02-25] MEDS: HYDROmorphone HCl 0.5 MG/0.5 ML SYRINGE IVPUSH (21:43)
--- NOTE | 2022-02-25 23:39 | MHC.CM.ED ---
CM met with patient. Hx of back issues and back surgeries. Fell today. Increased pain. States it's very painful to walk. Agreeable to PT evaluation with STR if recommended. PCP Dr. Yates. NO HCP on file. Pt states all her family is in [facility]. Primary contact is listed as a friend, but patient states she just speaks her language and helps interpret letters for her. Pt lives alone. Uses a walker. Has [employer]. Is working on getting a [employer], but does not have one yet. States has not help at home. May need to verify with [employer] in the morning. Pt tells CM that she has not been vaccinated against Covid [address] locally that contract with her insurance. Expect placement may be difficult since pt is not vaccinated. D/C plan: PT eval and STR if recommended. CM to follow for d/c needs.
[2022-02-26] VITALS (10 sets, daily range): BP systolic 99–168; BP diastolic 44–95; PULSE 59–74; RESP 15–19; TEMP 36.6–37.2; O2SAT 96–98
[2022-02-26 00:09] LABS: IDNOW Serial# 08D9AD1C
[2022-02-26 00:10] LABS: COVID-19 Test Negative (Negative)
--- NOTE | 2022-02-26 09:49 | PHA.MEDREC ---
Pharmacy Consult ? Medication Reconciliation Pharmacy has completed the medication reconciliation. Patient reported medication matched medication list. Patient suppose to be Prednisone taper 60 mg x 2 days, 40 mg x 3 days, 20 mg x 3 days and 10 mg x 4 days however patient reports she has only been taking 10 mg daily because 20 made her BP too high. Alethea Montes, PharmD
--- NOTE | 2022-02-26 12:18 | PC.NURSE ---
JORDY Jesus instructed to hold lisinopril due to low BP
[2022-02-26] MEDS: Montelukast Sodium 10 MG TABLET PO (12:20)
[2022-02-26] MEDS: predniSONE 10 MG TABLET PO (12:21)
[2022-02-26] MEDS: LORazepam 0.5 MG TABLET PO (12:21)
[2022-02-26] MEDS: oxyCODONE HCl Immed Release 5 MG TABLET 2.5 MG PO (12:22)
--- NOTE | 2022-02-26 12:36 | PC.NURSE ---
Provider instructed to hold dilaudid due to low BP
[2022-02-26 12:38] LABS: Appearance Urine CLEAR; Color Urine YELLOW; Glucose Urine UA NEG (NEG); Leukocyte Esterase Urine 1+ (NEG); Nitrite Urine NEG (NEG); Specific Gravity - Urine >= 1.030 (1.005-1.025); UACC Culture Trigger YES; Urine Blood NEG (NEG); Urine Ketones NEG (NEG); Urine Protein NEG (NEG-TRACE)
[2022-02-26 12:59] LABS: Mucus Urine 2+ /LPF; Squamous Epithelial Cell Urine 2+ /LPF
[2022-02-26 13:00] LABS: RBC Urine 0 /HPF (0)
--- NOTE | 2022-02-26 14:53 | MHC.CM.ED ---
Patient remains in ER. [facility] is able to offer a bed and has obtained insurance auth. Patient can leave at 3pm. [facility] booked. Med nec with chart. Patient, Sinan RN and Gena SPENCE aware. Continue to monitor for d/c needs.
== END 2022-02-26 16:03 | disposition skilled nursing facility (03) ==
PROVIDERS: Emergency Provider Emergency Medicine Emergency Medical Services; PCP Internal Medicine
DX: S20.219A Contusion of unspecified front wall of thorax, initial encounter (principal); S20.229A Contusion of unspecified back wall of thorax, initial encounter; M54.50 Low back pain, unspecified; M54.6 Pain in thoracic spine; R10.9 Unspecified abdominal pain; W10.9XXA Fall (on) (from) unspecified stairs and steps, initial encounter; Y93.9 Activity, unspecified; Y92.009 Unspecified place in unspecified non-institutional (private) residence as the place of occurrence of the external cause; Y99.9 Unspecified external cause status; Z20.822 Contact with and (suspected) exposure to COVID-19; Z79.899 Other long term (current) drug therapy
CPT/HCPCS: 36415; 71250; 72131; 74176; 80053; 81001; 82077; 83690; 85025; 85610; 85730; 87086; 87635; 96374; 96375; 96376; 97162; 99284; 99285; J1170; J1200

== ENCOUNTER → 2022-05-20 15:50 | Outpatient (BNVA) | payer OTHER, SELFPAY | PROVIDERS: PCP Internal Medicine; Visit Provider Anesthesiology | DX: M79.18 Myalgia, other site (principal); M25.512 Pain in left shoulder; M25.522 Pain in left elbow; Z53.29 Procedure and treatment not carried out because of patient's decision for other reasons | CPT/HCPCS: 99212; J3300 ==

== ENCOUNTER → 2022-05-22 11:00 | Outpatient (BNVA) | payer OTHER, SELFPAY | PROVIDERS: PCP Internal Medicine; Visit Provider Internal Medicine | DX: M19.021 Primary osteoarthritis, right elbow (principal); M19.022 Primary osteoarthritis, left elbow; G89.4 Chronic pain syndrome; M79.18 Myalgia, other site | CPT/HCPCS: 20553; 20605; 99212; J2795 ==

== ENCOUNTER 2022-06-10 18:06 | Emergency (ER) | payer OTHER, SELFPAY ==
[2022-06-10 18:22] VITALS: BP 160/90; PULSE 112; O2SAT 96
[2022-06-10 19:00] VITALS: BP 124/59; PULSE 99; RESP 18; TEMP 37.2; O2SAT 98; BMI 33.5
--- NOTE | 2022-06-10 19:05 | PC.NURSE ---
Per pt i'm going outside and calling another ambulance to bring me to another hospital. Educated to [facility] triage process.
[2022-06-11 05:07] LABS: Basophils Percent Auto 0.3 % (0-2); Eosinophils Percent Auto 0.1 % (0-4); Hematocrit 40.3 % (37.0-47.0); Hemoglobin 13.4 g/dl (12.0-16.0); Imm Gran Abs Auto 0.04 X10*3/uL (0.00-0.03); Imm Gran Pct Auto 0.3 % (0.0-0.4); Lymphocytes Absolute Auto 2.2 X10*3/uL (1.2-4.9); Lymphocytes Percent Auto 17.1 % (20-40); MANUAL DIFF FLAG SCAN; Mean Corpuscular HGB Conc 33.3 g/dl (31.0-35.0); Mean Corpuscular Volume 90.4 fL (80.0-98.0); Mean Platelet Volume 11.3 fL (9.4-12.3); Monocytes Absolute Auto 1.7 X10*3/uL (0.1-1.2); Monocytes Percent Auto 12.7 % (2-11); Neutrophils Percent Auto 69.5 % (45-73); Platelet Count 186 X10*3/uL (160-400); Red Blood Count 4.46 X10*6/uL (4.20-5.50); Red Cell Distribution Width 14.4 % (11.0-16.0); SCAN SMEAR FLAG 1
[2022-06-11 05:18] LABS: Alanine Aminotransferase 11 U/L (0-31); Albumin Level 3.9 g/dL (3.5-5.0); Alkaline Phosphatase 96 U/L (39-117); Anion Gap 15 (12-20); Aspartate Amino Transferase 15 U/L (5-31); Bilirubin Total 1.9 mg/dL (0.0-1.0); Blood Urea Nitrogen 15 mg/dL (9-16); Calcium 9.2 mg/dL (8.4-10.2); Carbon Dioxide 27 mmol/L (22-29); Chloride 101 mmol/L (96-108); Creatinine Clr Calc Pharmacy 75.1; Estimated Glomerular Filt Rate > 60; Glucose Random 127 mg/dL (60-115); Potassium 4.3 mmol/L (3.3-5.1); Sodium 139 mmol/L (135-145); Total Protein 6.9 g/dL (6.5-8.0)
[2022-06-11 05:38] VITALS: BP 109/56; PULSE 85; RESP 16; TEMP 36.8; O2SAT 97
[2022-06-11 05:56] LABS: SLIDE REVIEW VERIFIED
[2022-06-11 06:11] VITALS: BP 118/62; PULSE 88; RESP 16; TEMP 36.8; O2SAT 95
== END 2022-06-11 09:38 | disposition home or self-care (01) ==
LOC: HO.ED 06-11 07:15
PROVIDERS: Emergency Provider Emergency Medicine
DX: M54.42 Lumbago with sciatica, left side (principal); I10 Essential (primary) hypertension; F17.200 Nicotine dependence, unspecified, uncomplicated
CPT/HCPCS: 36415; 80053; 85025; 99283

== ENCOUNTER 2022-07-09 07:06 | Outpatient (REF) | payer OTHER, SELFPAY | END 2022-07-09 07:07 | disposition home or self-care (01) | LOC: HO.HOSX 07:06 | PROVIDERS: Visit Provider Physician Assistant | DX: Z13.89 Encounter for screening for other disorder (principal) ==

== ENCOUNTER → 2022-07-16 14:15 | Outpatient (BNVA) | payer OTHER, SELFPAY | PROVIDERS: PCP Internal Medicine; Visit Provider Internal Medicine | DX: J45.909 Unspecified asthma, uncomplicated (principal); R05.9 Cough, unspecified; F41.1 Generalized anxiety disorder; Z22.7 Latent tuberculosis | CPT/HCPCS: 99202 ==

== ENCOUNTER → 2022-08-26 10:43 | Outpatient (REF) | payer OTHER, SELFPAY | LOC: HO.SL 10:43 | PROVIDERS: PCP Internal Medicine; Visit Provider Internal Medicine | DX: Z13.89 Encounter for screening for other disorder (principal) ==

== ENCOUNTER 2022-09-04 20:27 | Emergency (ER) | payer OTHER, SELFPAY ==
[2022-09-04 20:38] VITALS: BP 121/61; PULSE 85; RESP 20; TEMP 36.9; O2SAT 95; BMI 32.3
--- NOTE | 2022-09-04 21:32 | ED_ITS ---
HPI - General Adult General Chief complaint: General Medical Stated complaint: too cold Time Seen by Provider: 09/04/22 20:46 Source: patient and EMS Mode of arrival: EMS Limitations: no limitations History of Present Illness HPI narrative: patient comes to the emergency room via ambulance from [facility]. according to the staff and EMS, the patient has been complaining that her room is too cold. Patient requested a heater. They do not have a heater. However, they offered to change the patient to a different room. Patient declined. So she called 911. She is vitals from EMS. On arrival to the emergency room, patient states the same history, states that nobody provided her with a heater. Patient states that she does not want to go to [facility], she wants to go home. Patient states that she called her daughter who lives in [place] and does not know if the daughter will be picking her up yet. Related Data Home Medications Medication Instructions Recorded Confirmed capsaicin 0.025 % topical cream 1 appl topical DAILY 02/26/22 08/10/22 diclofenac sodium 1 % topical gel 2 g topical QID PRN Pain 02/26/22 08/10/22 (Voltaren Arthritis Pain) Previous Rx's Medication Instructions Recorded Blood pressure monitor #1 ea 01/26/22 nebulizer and compressor (Comp-Air #1 ea 01/26/22 Nebulizer Compressor) montelukast 10 mg tablet 10 mg PO DAILY 90 days #90 tabs 05/14/22 bisacodyl 10 mg rectal suppository 10 mg RI DAILY PRN constipation 30 06/03/22 (Dulcolax (bisacodyl)) days #12 ea lisinopril 5 mg tablet 5 mg PO DAILY 90 days #90 tabs 06/23/22 pantoprazole 40 mg tablet,delayed 40 mg PO DAILY 90 days #90 tabs 06/23/22 release simvastatin 20 mg tablet 20 mg PO DAILY 90 days #90 tabs 06/23/22 meloxicam 15 mg tablet 15 mg PO DAILY 30 days #30 tabs 07/03/22 aluminum-mag hydroxide-simethicone 5 ml PO QID dyspepsia 10 days #200 07/08/22 200 mg-200 mg-20 mg/5 mL oral susp mL (Maalox Advanced) albuterol sulfate 90 mcg/actuation 2 puff inhalation Q4-6H PRN 07/16/22 aerosol inhaler (ProAir HFA) shortness of breath or wheezing 30 days #6.7 grams albuterol sulfate 0.63 mg/3 mL 0.63 mg (3 mL) inhalation QID PRN 07/21/22 solution for nebulization shortness of breath or wheezing 90 days #75 mL cyclobenzaprine 5 mg tablet See Rx Instructions PO BEDTIME 90 08/10/22 days #135 tabs duloxetine 20 mg capsule,delayed 20 mg PO DAILY 30 days #30 caps 08/13/22 release Allergies Allergy/AdvReac Type Severity Reaction Status Date / Time acetaminophen [From Tylenol] Allergy Shortness Verified 08/10/22 11:17 of Breath Review of Systems Review of Systems: Constitutional : No Weight loss, No Fever, No Chills, No Night Sweats, No Fatigue, No Malaise ENT/Mouth : No Hearing loss, No Ear Pain, No Nasal Congestion, No Sinus Pain, No Hoarseness, No sore throat, No Rhinorrhea, No Swallowing Difficulty Eyes: No Eye Pain, No Swelling, No Redness, No Foreign Body, No Discharge, No Vision Changes Cardiovascular : No Chest Pain, No SOB, No Dyspnea on Exertion, No Orthopnea, No Edema, No Palpitations Respiratory : No Cough, No Sputum, No Wheezing, No Smoke Exposure, No Dyspnea Gastrointestinal : No Nausea, No Vomiting, No Diarrhea, No Constipation, No abdominal Pain, No Hematochezia, No Melena Genitourinary : no irregular bleeding, No Dysuria, No Urinary Frequency, No Hematuria, No Urinary Incontinence, No Urgency, No Flank Pain, No Urinary Flow Changes, No Hesitancy Musculoskeletal : No joint pain, No Myalgias, No Joint Swelling Skin : No Skin Lesions, No rash Neuro : No Weakness, No Numbness, No Paresthesias, No Loss of Consciousness, No Dizziness, No Headache Psych : No Anxiety/Panic, No Depression, No SI/HI/AH/VH, No Social Issues, Heme/Lymph: No Bruising, No Bleeding,No Lymphadenopathy Endocrine : No Polyuria, No Polydipsia, Complaining of cold intolerance PMFSH Past Medical History Medical History Anxiety Arthritis Asthma Cough Fibromyalgia HTN (hypertension) Latent tuberculosis Myofascial muscle pain Osteoarthritis Sleep disorder breathing Family History Family History Other Mental health disorder Social History Social History Housing: Apartment Alcohol intake: never Patient Tobacco Use Status: Never used Tobacco e-Cigarette/Vaping Use: Never Used Advance Directives: No Advance Directives Information Provided: No service: No Current occupational status: unemployed Cognitive needs: No Hearing needs: No Vision needs: No Physical Exam ED Vital Signs: Vital Signs - 24 hr 09/04/22 20:38 09/05/22 00:07 Temperature 98.4 F 98.5 F Pulse Rate 85 85 Respiratory Rate 20 15 Blood Pressure 121/61 109/59 L Pulse Oximetry 95 97 Oxygen Delivery Method Room Air Room Air BMI result Body Mass Index 32.3 Const Other: Appearance: Alert. Oriented X3. No acute distress. wearing 3 or 4 layers of clothes Eyes: Pupils equal, round and reactive to light. ENT: Pharynx normal. Neck: Normal inspection. Neck supple. No lymph nodes noted. No crepitus CVS: Normal heart rate and rhythm. Pulses normal. Normal S1 and S2 Respiratory: No respiratory distress. Breath sounds normal. No Wheezing. No rales Abdomen: Soft and nontender. No rigidity. No distention. Skin: Skin warm and dry. Normal skin color. Normal skin turgor. Extremities: No lower extremity edema. No Lacerations. No Rash Neuro: Oriented X 3. No motor deficit. No sensory deficit. Moving all extremities. No slurred speech. CN 2 through 12 grossly intact Psych: calm, cooperative, normal affect Course Course Course Narrative: we will obtain routine blood work including TSH to rule out hypothyroidism. Otherwise, patient will be Case Management in the morning. It is unclear if it is accurate that the patient's daughter will be picking her up. case management spoke with the patient's daughter, seems that tomorrow she will be coming to pick the patient up. However, patient was at the short term rehab for less than 5 hours. She was discharged from [facility]. Today is possible that patient may be more agreeable to return to short-term in the morning. Case management requested to have a physical therapy evaluation. Until now, patient has not allowed the text to draw blood. Patient voices no complaints other than feeling cold. Sign-out given to Dr. Demarco physician observation started at 00:15 Discharge Plan Discharge Clinical Impression: Cold intolerance Patient Disposition: Still a Patient Prescriptions: No Action (DME) nebulizer and compressor [Comp-Air Nebulizer Compressor] Device See Rx Instructions .Route Qty: 1 0RF Rx Instructions: As directed (DME) Blood pressure monitor See Rx Instructions .Route .MEDSUPPLY Qty: 1 0RF Rx Instructions: As directed montelukast 10 mg tablet 10 mg PO DAILY 90 Days Qty: 90 1RF lisinopril 5 mg tablet 5 mg PO DAILY 90 Days Qty: 90 1RF simvastatin 20 mg tablet 20 mg PO DAILY 90 Days Qty: 90 1RF pantoprazole 40 mg tablet,delayed release (DR/EC) 40 mg PO DAILY 90 Days Qty: 90 1RF alum-mag hydroxide-simeth [Maalox Advanced] 200-200-20 mg/5 mL suspension 5 ml PO QID 10 Days Qty: 200 0RF albuterol sulfate 0.63 mg/3 mL solution for nebulization 0.63 mg inhalation QID PRN (Reason: shortness of breath or wheezing) 90 Days Qty: 75 2RF duloxetine 20 mg capsule,delayed release(DR/EC) 20 mg PO DAILY 30 Days Qty: 30 0RF diclofenac sodium [Voltaren Arthritis Pain] 1 % gel 2 g topical QID PRN (Reason: Pain) capsaicin 0.025 % cream 1 appl topical DAILY bisacodyl [Dulcolax (bisacodyl)] 10 mg suppository 10 mg RI DAILY PRN (Reason: constipation) 30 Days Qty: 12 0RF cyclobenzaprine 5 mg tablet See Rx Instructions PO BEDTIME 90 Days Qty: 135 0RF Rx Instructions: One tablet at night at half in the morning meloxicam 15 mg tablet 15 mg PO DAILY 30 Days Qty: 30 2RF albuterol sulfate [ProAir HFA] 90 mcg/actuation HFA aerosol inhaler 2 puff inhalation Q4-6H PRN (Reason: shortness of breath or wheezing) 30 Days Qty: 6.7 2RF
--- NOTE | 2022-09-04 23:31 | MHC.CM.ED ---
Addendum entered by Amelia Cloud 09/05/22 00:08: MISAEL spoke with Dr. Stuart. Will reviewed conversation with Tristin Cavazos and Daughter, Desire. Will keep overnight and order PT consult. Please call Desire in the morning after PT consult. Original Note: Medical work up pending. CM spoke with patient, reviewed medical record from [facility] and spoke to nurse at [facility]. Pt was hospitalized at [facility] for pain control, fibromyalgia and RA flare. D/C today 09/04 at 1430 from [facility] to [facility] for STR. Pt with hx chronic pain. According to record, pt complained it was too cold and requested a heater. There was no heater, so patient requested to go to the hospital. Per nurse at [facility], pt requested to go to the hospital because she was too cold. They did not complete an assessment on the patient, so they only sent the records from [facility]. Pt states her daughter from [place] can pick her up and she wants to go home. Pt tells CM she is weak, in pain and having trouble walking. Pt daughter, DESIRE [phone]. MISAEL spoke with Desire. She tells CM she is a bit confused on whats going on. Her mother called her and told her she was in [facility] and wanted to go home. Daughter was aware that she was at [facility]. CM explained that her mother was cold and wanted to come to hospital from STR. Had only been there since 1430. According to Desire, pt is confused at times. She lives alone. When asked if her mother is safe to go home, daughter doesn't think so. MISAEL will speak with Provider. Pt to remain overnight and assess for need for STR. Daughter will not come into [place] from [place] in the morning and will wait for call from . If STR recommended, then Desire may be able to encourage her mother to go. Provider not available. MISAEL spoke with nurse regarding plan of care.She will speak with Dr. Stuart
--- NOTE | 2022-09-04 23:39 | PC.NURSE ---
Pt refused blood draw.
[2022-09-05 00:07] VITALS: BP 109/59; PULSE 85; RESP 15; TEMP 36.9; O2SAT 97
--- NOTE | 2022-09-05 00:38 | PC.NURSE ---
Pt refused labs Ariel Gore made aware
--- NOTE | 2022-09-05 00:40 | PC.NURSE ---
pt requested water from this rn. rn stated would get pt water. pt states i don't want water from here . this rn asked if pt would like anything else to drink pt declined. pt requested her bag of things. pt began consuming Clementines that were brought in with pt because pt was thirsty. pt requested rn move jackets to bedside table. pt became upset when jackets moved to bedside table stating rn took them away from her
[2022-09-05 01:38] VITALS: BP 112/60; PULSE 77; RESP 16; TEMP 37.1; O2SAT 99
[2022-09-05 03:27] VITALS: BP 106/53; PULSE 78; RESP 17; TEMP 36.9; O2SAT 93
--- NOTE | 2022-09-05 03:31 | PC.NURSE ---
Pt wearing a diaper and soiled with urine. Pt given Pericare and Purewick system applied. Pt bed linen and pads changed. PT given warm blanket and call randall
[2022-09-05 05:46] VITALS: BP 111/61; PULSE 76; RESP 16; TEMP 37.2
--- NOTE | 2022-09-05 06:35 | PC.NURSE ---
this rn and acquisitions editorchayo gavin boosted pt up in bed and repositioned in bed. pt requesting bottled water only does not want to drink water from hospital fountain. bottle of water provided to pt. pt resting comfortably at this time
[2022-09-05 08:05] VITALS: BP 100/60; PULSE 78; RESP 18; TEMP 36.9; O2SAT 94
--- NOTE | 2022-09-05 08:50 | PC.NURSE ---
Physical therapy to bedside with this RN, pt needing moderate assist with transfer. Pt noted to be wet but declining for this RN to change pt and clean pt. ?Purewick working however pt declining for this RN to adjust at this time. Pt in recliner. Requesting water bottle, explaned to pt there are no water bottles and offered fitlered water available, but pt refused.
[2022-09-05 09:34] VITALS: BP 100/60; PULSE 73
--- NOTE | 2022-09-05 11:54 | PHA.MEDREC ---
Pharmacy Consult ? Medication Reconciliation Pharmacy has completed the medication reconciliation.
--- NOTE | 2022-09-05 13:18 | PC.NURSE ---
Case management at bedside speaking with pt at this time
--- NOTE | 2022-09-05 13:20 | MHC.CM.PN ---
PT REFUSING TO RETURN TO [facility], PT IS ADAMANT THERE IS NO HEAT, PT WOULD LIKE TO RETURN HOME W/HOME SERVICES HOWEVER DOES NOT HAVE A LOPE[place] TO HER APT, PT REPORTS HER DTR PAULINO DOES, CM ATTEMPTED TO CONTACT DTR PAULINO SEVERAL TIMES W/NO ANSWER OR DROPPED CALLS, CM FINALLY GOT THROUGH AND MALE WHO ANSWERED PHONE SAID THEY WERE A FEW MINUTES AWAY AND PAULINO CANNOT TALK WHILE DRIVING, CM WILL MEET W/FAMILY AT BEDSIDE.
--- NOTE | 2022-09-05 13:47 | MHC.CM.PN ---
CM MET W/PT'S DTR PAULINO AT BEDSIDE, DTR REPORTS SHE WILL TAKE HER HOME AND WILL HELP PT UP STAIRS. DTR AND PT NOW REFUSING AMBULANCE TRANSPORT HOME. REFERRAL PLACED TO [facility] FOR SN AND HOME PT THEY ARE CONTRACTED W/PT'S INSURANCE. ED PROVIDER AND PTSS NURSE AWARE.
== END 2022-09-05 13:54 | disposition home or self-care (01) ==
PROVIDERS: Emergency Provider Emergency Medicine
DX: R26.81 Unsteadiness on feet (principal); Z04.9 Encounter for examination and observation for unspecified reason; Z79.899 Other long term (current) drug therapy
CPT/HCPCS: 97162; 99284

== ENCOUNTER 2022-11-02 20:17 | Observation (INO) | payer OTHER, SELFPAY ==
--- NOTE | ~2022-11-02 | CT_ITS ---
EXAMINATION: CT HEAD WITHOUT CONTRAST CLINICAL INFORMATION: Acute dizziness COMPARISON: None. TECHNIQUE: Contiguous axial imaging was performed from the skull base to vertex without intravenous contrast. This CT examination was performed using dose optimization techniques as appropriate, variously including the following: * Automated exposure control * Adjustment of mA and/or kV according to patient size (this includes techniques or standardized protocols for targeted exams where dose is matched to indication/reason for exam; i.e. extremities or head) Use of iterative reconstruction technique DLP: 599 mGy-cm. FINDINGS: There is no evidence of acute intracranial hemorrhage or territorial infarction. No abnormal mass effect or midline shift is seen. Alonso to white matter differentiation is well preserved. No extra-axial fluid collections are identified. No hydrocephalus. No significant volume loss. There is no abnormal attenuation within the brain parenchyma. The osseous structures and soft tissues are normal. The mastoid air cells and visualized portions of the paranasal sinuses are well aerated. CT/CT head/brain wo IV con IMPRESSION: No acute intracranial pathology.
--- NOTE | ~2022-11-02 | XR_ITS ---
EXAMINATION: XR CHEST CLINICAL INFORMATION: History of latent TB COMPARISON: 05/17/2021 TECHNIQUE: Frontal view of the chest was obtained. FINDINGS: Low lung volumes. Bronchial wall thickening noted. No dense consolidation. No effusion or pneumothorax. The cardiomediastinal silhouette is within normal limits. Partially visualized spinal fusion hardware. XR/XR chest 1V IMPRESSION: No dense consolidation. Bronchial wall thickening can be seen with a small airways process such as asthma or atypical/viral infection.
--- NOTE | ~2022-11-02 | MR_ITS ---
EXAMINATION: MR BRAIN WITHOUT CONTRAST CLINICAL INFORMATION: Stroke. COMPARISON: Head CT 11/02/2022. TECHNIQUE: Multiplanar, multisequence imaging of the brain was performed without intravenous contrast. FINDINGS: There is no acute infarction, mass, hemorrhage, or extra-axial collection. The ventricles, sulci, and basilar cisterns are normal in size and configuration. The flow voids of the major intracranial arteries appear intact. The bones and extracranial soft tissues are unremarkable. Postoperative findings are seen in the upper cervical spine related to instrumented fusion. MR/MR head/brain wo con IMPRESSION: No acute infarct, mass lesion, intracranial hemorrhage, or evidence of hydrocephalus.
[2022-11-02 20:26] VITALS: BP 108/67; BP 116/72; PULSE 89; RESP 16; TEMP 36.6; O2SAT 96; BMI 27.1
--- NOTE | 2022-11-02 20:47 | ED_ITS ---
HPI - Dizziness General Chief Complaint: Nausea/Vomiting/Diarrhea Stated Complaint: N/V Time Seen by Provider: 11/02/22 20:35 Source: patient Mode of arrival: EMS Limitations: no limitations History of Present Illness HPI Narrative: Patient history of latent TB on rifampin history of vertigo, hypertension noticed sudden onset of dizziness, vertiginous feeling started about 3 hours prior to arrival unable to ambulate vomiting multiple times having headache on the left side no fever no chills no significant abdominal pain patient very anxious on arrival and nauseated Related Data Home Medications Medication Instructions Recorded Confirmed lorazepam 0.5 mg tablet 1 tab PO DAILY PRN Anxiety 09/05/22 09/24/22 lorazepam 1 mg tablet 1 tab PO BID 09/05/22 09/24/22 pantoprazole 40 mg tablet,delayed 40 mg PO DAILY@0630 09/05/22 09/24/22 release rifampin 300 mg capsule 1 cap PO BID 09/05/22 09/24/22 simvastatin 20 mg tablet 20 mg PO BEDTIME 09/05/22 09/24/22 Previous Rx's Medication Instructions Recorded Blood pressure monitor #1 ea 01/26/22 nebulizer and compressor (Comp-Air #1 ea 01/26/22 Nebulizer Compressor) montelukast 10 mg tablet 10 mg PO DAILY 90 days #90 tabs 05/14/22 lisinopril 5 mg tablet 5 mg PO DAILY 90 days #90 tabs 06/23/22 albuterol sulfate 90 mcg/actuation 2 puff inhalation Q4-6H PRN 07/16/22 aerosol inhaler (ProAir HFA) shortness of breath or wheezing 30 days #6.7 grams albuterol sulfate 0.63 mg/3 mL 0.63 mg (3 mL) inhalation QID PRN 07/21/22 solution for nebulization shortness of breath or wheezing 90 days #75 mL cyclobenzaprine 5 mg tablet 5 mg PO BID 30 days #60 tabs 09/14/22 duloxetine 20 mg capsule,delayed 20 mg PO DAILY 30 days #30 caps 09/23/22 release aluminum-mag hydroxide-simethicone 5 ml PO TID indigestion 30 days 09/24/22 400 mg-400 mg-40 mg/5 mL oral susp #450 mL (Almacone-2) fluconazole 150 mg tablet 150 mg PO Q3D 2 doses #2 tabs 09/24/22 (Diflucan) nystatin 100,000 unit/gram topical 1 appl topical DAILY 30 days #30 09/24/22 cream grams capsaicin 0.025 % topical cream 1 appl topical DAILY 30 days #60 10/27/22 grams meclizine 25 mg tablet 25 mg PO TID PRN dizziness #20 tabs 11/03/22 Allergies Allergy/AdvReac Type Severity Reaction Status Date / Time acetaminophen [From Tylenol] Allergy Shortness Verified 08/10/22 11:17 of Breath Review of Systems Review of Systems: Yes all other systems are reviewed and are negative [facility] Past Medical History Medical History Anxiety Arthritis Asthma Cough Fibromyalgia HTN (hypertension) Latent tuberculosis Myofascial muscle pain Osteoarthritis Sleep disorder breathing Family History Family History Other Mental health disorder Social History Social History Housing: Apartment Alcohol intake: never Patient Tobacco Use Status: Never used Tobacco e-Cigarette/Vaping Use: Never Used Advance Directives: Yes Advance Directives on File: Yes Advance Directives Date on File: 02/26/22 service: No Current occupational status: unemployed Cognitive needs: No Hearing needs: No Vision needs: No Physical Exam Vital Signs: Vital Signs: Last Vital Signs Temp 97.9 F 11/02/22 22:31 Pulse 82 11/02/22 22:31 Resp 16 11/02/22 22:31 BP 117/57 L 11/02/22 22:31 Pulse Ox 95 11/02/22 22:31 O2 Del Method 11/02/22 22:31 BMI result Body Mass Index 27.1 Appearance: Alert. Oriented X3. Feeling dizzy vomiting after head movement Eyes: PERRLA, No Nystagmus ENT: Pharynx normal. Oral Mucosa moist Neck: Normal inspection. Neck supple. CVS: Normal heart rate and rhythm. Pulses normal. Respiratory: No respiratory distress. Equal air entry bilateral, no wheezing/rales/rhonchi Abdomen: Soft and nontender. Bowel sounds are present, no mass palpable, no CVA tenderness Skin: Skin warm and dry. Normal skin color. Normal skin turgor. Extremities: No lower extremity edema. No calf tenderness Neuro: Oriented X 3. No motor deficit. No sensory deficit.No cerebellar signs , cranial nerves II-XII intact Medications Administered Discontinued Medications Generic Name Dose Route Start Last Admin Trade Name Benedictoq PRN Reason Stop Dose Admin Famotidine 20 mg 11/02/22 23:42 11/03/22 00:24 Famotidine/Pf 20 Mg/2 Ml Vial IVPUSH 11/02/22 23:43 20 mg ONCE ONE Administration Sodium Chloride 1,000 mls @ 999 mls/hr 11/02/22 20:45 11/03/22 00:31 Ns IV 11/02/22 21:45 Infused .Q1H1M ONE Infusion Lorazepam 0.5 mg 11/02/22 23:42 11/03/22 00:24 Lorazepam 2 Mg/Ml Vial IVPUSH 11/02/22 23:43 0.5 mg STAT STA Administration Morphine Sulfate 4 mg 11/02/22 22:12 11/02/22 22:18 Morphine Sulfate 4 Mg/Ml Cartridge IVPUSH 11/02/22 22:13 4 mg ONCE ONE Administration Protocol Ondansetron HCl 4 mg 11/02/22 20:45 11/02/22 20:55 Ondansetron Hcl 4 Mg/2 Ml Vial IVPUSH 11/02/22 20:46 4 mg ONCE ONE Administration Medical Decision Making Medical Decision Making [facility] Narrative: Patient with benign positional vertigo very anxious on arrival improved after At [facility] and meclizine workup is negative for any acute pathology patient walked to the bathroom will discharge patient home on meclizine Differential Diagnosis CVA/benign positional vertigo/anxiety Lab Data [facility] Lab Attestation statement: I reviewed the patient's lab results. 11/02/22 21:10 11/02/22 21:09 Labs: Lab Results 11/02/22 11/02/22 Range/Units 21:09 21:10 WBC 10.8 (4.8-10.8) X10*3/uL RBC 4.60 (4.20-5.50) X10*6/uL Hgb 13.5 (12.0-16.0) g/dl Hct 40.1 (37.0-47.0) % MCV 87.2 (80.0-98.0) fL MCH 29.3 (27.0-33.0) pg MCHC 33.7 (31.0-35.0) g/dl RDW 14.0 (11.0-16.0) % Plt Count 266 D (160-400) X10*3/uL MPV 11.9 (9.4-12.3) fL Immature Gran % (Auto) 0.4 (0.0-0.4) % Neut % (Auto) 70.2 (45-73) % Lymph % (Auto) 20.4 (20-40) % Pickens % (Auto) 8.1 (2-11) % Eos % (Auto) 0.5 (0-4) % Baso % (Auto) 0.4 (0-2) % Lymph # (Auto) 2.2 (1.2-4.9) X10*3/uL Pickens # (Auto) 0.9 (0.1-1.2) X10*3/uL Eos # (Auto) 0.1 (0.0-0.4) X10*3/uL Baso # (Auto) 0.0 (0.0-0.2) X10*3/uL Abs Immat Gran (auto) 0.04 H (0.00-0.03) X10*3/uL Absolute Neuts (auto) 7.6 (2.0-8.3) x10*3/uL Absolute Nucleated RBC 0.000 (0.0-0.012) X10*3/uL Nucleated RBC % (auto) 0.0 (0.0-0.2) /100WBC Sodium 141 (135-145) mmol/L Potassium 3.7 (3.3-5.1) mmol/L Chloride 105 (96-108) mmol/L Carbon Dioxide 27 (22-29) mmol/L Anion Gap 13 (12-20) BUN 14 (9-16) mg/dL Creatinine 0.69 (0.5-1.4) mg/dL Estim Creat Clear Calc 86.6 Estimated GFR > 60 Random Glucose 109 (60-115) mg/dL Calcium 9.4 (8.4-10.2) mg/dL Total Bilirubin 0.3 (0.0-1.0) mg/dL AST 16 (5-31) U/L ALT 7 (0-31) U/L Alkaline Phosphatase 86 (39-117) U/L Total Protein 6.6 (6.5-8.0) g/dL Albumin 4.0 (3.5-5.0) g/dL Lipase 29 (8-78) U/L Discharge Plan Discharge Clinical Impression: Benign paroxysmal positional vertigo Patient Disposition: Home, Self-Care Instructions: Benign Paroxysmal Positional Vertigo (ED) Additional Instructions: Rest at home Take medication for anxiety as prescribed by your PCP Meclizine for dizziness Follow with PCP Prescriptions: New meclizine 25 mg tablet 25 mg PO TID PRN (Reason: dizziness) Qty: 20 0RF No Action (DME) nebulizer and compressor [Comp-Air Nebulizer Compressor] Device See Rx Instructions .Route Qty: 1 0RF Rx Instructions: As directed (DME) Blood pressure monitor See Rx Instructions .Route .MEDSUPPLY Qty: 1 0RF Rx Instructions: As directed montelukast 10 mg tablet 10 mg PO DAILY 90 Days Qty: 90 1RF lisinopril 5 mg tablet 5 mg PO DAILY 90 Days Qty: 90 1RF albuterol sulfate 0.63 mg/3 mL solution for nebulization 0.63 mg inhalation QID PRN (Reason: shortness of breath or wheezing) 90 Days Qty: 75 2RF cyclobenzaprine 5 mg tablet 5 mg PO BID 30 Days Qty: 60 2RF duloxetine 20 mg capsule,delayed release(DR/EC) 20 mg PO DAILY 30 Days Qty: 30 3RF capsaicin 0.025 % cream 1 appl topical DAILY 30 Days Qty: 60 3RF lorazepam 0.5 mg tablet 1 tab PO DAILY PRN (Reason: Anxiety) lorazepam 1 mg tablet 1 tab PO BID pantoprazole 40 mg tablet,delayed release (DR/EC) 40 mg PO DAILY@0630 simvastatin 20 mg tablet 20 mg PO BEDTIME rifampin 300 mg capsule 1 cap PO BID fluconazole [Diflucan] 150 mg tablet 150 mg PO Q3D 0 Days Qty: 2 0RF Rx Instructions: may repeat second dose 72 hrs after first dose if symptoms persist nystatin 100,000 unit/gram cream 1 appl topical DAILY 30 Days Qty: 30 1RF alum-mag hydroxide-simeth [Almacone-2] 400-400-40 mg/5 mL suspension 5 ml PO TID 30 Days Qty: 450 1RF albuterol sulfate [ProAir HFA] 90 mcg/actuation HFA aerosol inhaler 2 puff inhalation Q4-6H PRN (Reason: shortness of breath or wheezing) 30 Days Qty: 6.7 2RF
[2022-11-02] MEDS: 0.9 % Sodium Chloride 1,000 ML 999 ML IV (20:55)
[2022-11-02] MEDS: ondansetron HCL 4 MG/2 ML VIAL IVPUSH (20:55)
[2022-11-02 21:13] LABS: MANUAL DIFF FLAG NO
[2022-11-02 21:15] LABS: Basophils Percent Auto 0.4 % (0-2); Eosinophils Absolute Auto 0.1 X10*3/uL (0.0-0.4); Eosinophils Percent Auto 0.5 % (0-4); Hematocrit 40.1 % (37.0-47.0); Hemoglobin 13.5 g/dl (12.0-16.0); Imm Gran Abs Auto 0.04 X10*3/uL (0.00-0.03); Imm Gran Pct Auto 0.4 % (0.0-0.4); Lymphocytes Absolute Auto 2.2 X10*3/uL (1.2-4.9); Lymphocytes Percent Auto 20.4 % (20-40); Mean Corpuscular HGB Conc 33.7 g/dl (31.0-35.0); Mean Corpuscular Hemoglobin 29.3 pg (27.0-33.0); Mean Corpuscular Volume 87.2 fL (80.0-98.0); Mean Platelet Volume 11.9 fL (9.4-12.3); Monocytes Absolute Auto 0.9 X10*3/uL (0.1-1.2); Monocytes Percent Auto 8.1 % (2-11); Neutrophils Absolute Auto 7.6 x10*3/uL (2.0-8.3); Neutrophils Percent Auto 70.2 % (45-73); Platelet Count 266 X10*3/uL (160-400); White Blood Count 10.8 X10*3/uL (4.8-10.8)
[2022-11-02 21:38] LABS: Alanine Aminotransferase 7 U/L (0-31); Alkaline Phosphatase 86 U/L (39-117); Anion Gap 13 (12-20); Aspartate Amino Transferase 16 U/L (5-31); Bilirubin Total 0.3 mg/dL (0.0-1.0); Blood Urea Nitrogen 14 mg/dL (9-16); Calcium 9.4 mg/dL (8.4-10.2); Carbon Dioxide 27 mmol/L (22-29); Chloride 105 mmol/L (96-108); Creatinine Clr Calc Pharmacy 86.6; Estimated Glomerular Filt Rate > 60; Glucose Random 109 mg/dL (60-115); Lipase 29 U/L (8-78); Potassium 3.7 mmol/L (3.3-5.1); Sodium 141 mmol/L (135-145); Total Protein 6.6 g/dL (6.5-8.0)
[2022-11-02] MEDS: Morphine Sulfate 4 MG/ML CARTRIDGE IVPUSH (22:18)
[2022-11-02 22:31] VITALS: BP 117/57; PULSE 82; RESP 16; TEMP 36.6; O2SAT 95
[2022-11-03] MEDS: Famotidine/PF 20 MG/2 ML VIAL IVPUSH (00:24)
[2022-11-03] MEDS: LORazepam 2 MG/ML VIAL 0.5 MG IVPUSH (00:24)
[2022-11-03] MEDS: ondansetron HCL 4 MG/2 ML VIAL IVPUSH ×3 (01:57→17:14)
[2022-11-03] MEDS: Meclizine HCl 25 MG TABLET PO ×3 (01:58→19:57)
--- NOTE | 2022-11-03 02:36 | PM.IMHP ---
History of Present Illness Date of Service: 11/03/22 Chief Complaint: Vertigo this is a 67-year-old female with pertinent history of latent TB on rifampicin, essential hypertension, fibromyalgia, history of vertigo, generalized anxiety disorder who presents to the emergency department for evaluation of vertigo and nausea. Patient states she had sudden onset of vertigo about 3 hours prior to arrival. States it has been persistent and associated with nausea and multiple episodes of nonbloody emesis. Patient states she is unable to ambulate due to the same and is occasionally falling to 1 side. Also has had intermittent confusion. Patient states she has history of vertigo and the last time she had this severe vertigo was when she had stroke about 3 years ago. Complains of generalized weakness, no focal deficits. No urine deficits or fever, chills, tinnitus, chest discomfort, palpitations, shortness of breath, abdominal pain or changes in urinary or bowel habits. In the emergency department, CT head negative but patient unable to ambulate due to vertigo and hence hospitalist team was consulted for admission. Review of Systems Constitutional: Constitutional: Reports fatigue, Reports lethargy and Reports malaise ENT: Reports vertigo Cardiovascular: Cardiovascular: Reports no additional cardiovascular complaints Respiratory: Respiratory: Reports no additional respiratory complaints Gastrointestinal: Gastrointestinal: Reports no additional gastrointestinal complaints Genitourinary: Genitourinary: Reports no additional female genitourinary complaints Neurologic: Reports vertigo Endocrine: Endocrine: Reports fatigue [facility] Medical History (Updated 11/03/22 @ 02:46 by Susan Reis MD) Anxiety Arthritis Asthma Cough Fibromyalgia HTN (hypertension) Latent tuberculosis Myofascial muscle pain Osteoarthritis Sleep disorder breathing Family History Other Mental health disorder Social History Housing: Apartment Alcohol intake: never Patient Tobacco Use Status: Never used Tobacco e-Cigarette/Vaping Use: Never Used Advance Directives: Yes Advance Directives on File: Yes Advance Directives Date on File: 02/26/22 service: No Current occupational status: unemployed Cognitive needs: No Hearing needs: No Vision needs: No Meds Allergies Allergy/AdvReac Type Severity Reaction Status Date / Time acetaminophen [From Tylenol] Allergy Shortness Verified 08/10/22 11:17 of Breath Home Medications Medication Instructions Recorded Confirmed Last Taken Type lorazepam 0.5 mg tablet 1 tab PO DAILY PRN Anxiety 09/05/22 09/24/22 Unknown History lorazepam 1 mg tablet 1 tab PO BID 09/05/22 09/24/22 09/04/22 History pantoprazole 40 mg tablet,delayed 40 mg PO DAILY@0630 09/05/22 09/24/22 09/04/22 History release rifampin 300 mg capsule 1 cap PO BID 09/05/22 09/24/22 Unknown History simvastatin 20 mg tablet 20 mg PO BEDTIME 09/05/22 09/24/22 09/03/22 History Physical Exam Vital Signs and Narrative: Vital Signs: Last Vital Signs Temp 97.9 F 11/02/22 22:31 Pulse 82 11/02/22 22:31 Resp 16 11/02/22 22:31 BP 117/57 L 11/02/22 22:31 Pulse Ox 95 11/02/22 22:31 O2 Del Method 11/02/22 22:31 BMI result Body Mass Index 27.1 Middle-aged female lying in bed in mild distress Neck supple, no JVD Regular rate and rhythm, S1-S2 heard Regular breath sounds bilaterally, no wheezing or crackles appreciated Abdomen soft nontender, no guarding, no rigidity Patient is awake, alert and oriented to self, time, disoriented to place , horizontal nystagmus present, strength equal in bilateral upper and lower extremities, no pronator drift Psych: Anxious No pedal edema Results Labs 11/02/22 21:10 11/02/22 21:09 Labs: Laboratory Results - last 24 hr 11/02/22 11/02/22 21:09 21:10 MCV 87.2 MCH 29.3 MCHC 33.7 RDW 14.0 Plt Count 266 D MPV 11.9 Immature Gran % (Auto) 0.4 Neut % (Auto) 70.2 Lymph % (Auto) 20.4 [place] % (Auto) 8.1 Eos % (Auto) 0.5 Baso % (Auto) 0.4 Lymph # (Auto) 2.2 [place] # (Auto) 0.9 Eos # (Auto) 0.1 Baso # (Auto) 0.0 Abs Immat Gran (auto) 0.04 H Absolute Neuts (auto) 7.6 Absolute Nucleated RBC 0.000 Nucleated RBC % (auto) 0.0 Anion Gap 13 Estim Creat Clear Calc 86.6 Estimated GFR > 60 Random Glucose 109 Calcium 9.4 Total Bilirubin 0.3 AST 16 ALT 7 Alkaline Phosphatase 86 Total Protein 6.6 Albumin 4.0 Lipase 29 Imaging Radiologist's Impressions: Impressions Head CT 11/02/22 21:24 IMPRESSION: No acute intracranial pathology. Assessment and Plan (1) Vertigo: Status: Acute (2) Fibromyalgia: Status: Acute (3) Chronic pain syndrome: Status: Acute (4) Anxiety: Status: Acute (5) Latent tuberculosis: Status: Acute Plan this is a 67-year-old female with pertinent history of latent TB on rifampicin, essential hypertension, fibromyalgia, history of vertigo, generalized anxiety disorder who presents to the emergency department for evaluation of vertigo and nausea. #. Vertigo: Obtaining MRI to rule out central etiology. Symptomatic control with Zofran and meclizine p.r.n. #. Generalized anxiety disorder /fibromyalgia: Continue lorazepam, Flexeril and duloxetine #. essential hypertension: On lisinopril #. latent TB: On rifampicin DVT prophylaxis: Lovenox 40 mg daily Cardiac diet Full code Time Spent With Patient Time: Total time managing care of this patient today ____ minutes. Quality Stroke Does the patient have a stroke diagnosis?: No VTE Prior VTE?: No VTE Risk Level:: Medical - moderate - high VTE Device Contraindication: Treatment Not Indicated VTE Drug Contraindication: N/A - Med Ordered
[2022-11-03 03:24] VITALS: BP 106/47; PULSE 86; RESP 17; TEMP 36.6; O2SAT 97
[2022-11-03] MEDS: LORazepam 2 MG/ML VIAL 1 MG IVPUSH (03:33)
[2022-11-03] MEDS: Enoxaparin Sodium 40 MG/0.4 ML SYRINGE SUBCUT (03:33)
--- NOTE | 2022-11-03 04:02 | PC.NURSE ---
established care of pt. from EMS at 2026. Pt. lying in bed at that time, c/o nauseau and dizziness. Pt. reported being very cold. PT. provided with warm blankets. Pt. was medicated with zofran at 2054. Pt. reports only being able to lie on her right side and has been this way for several year. Pt. IV initially placed on left wrist. IV was positional and bothering pt. Redressed bandage and IV functioning well. 2210 pt. medicated with morphine per dec for headache. PT. had asked when dtr was going to come. 2329 Called pt. dtr, Desire [phone]. Dtr. just got off work and will be coming down in about [address] scan done on pt. and no abnormal results found. Pt. feeling anxious and worried about her dtr coming and whether her dtr would bring her bag with her. Pt. also reports some abdominal upset. Pt. medicated with lorazepam and pepcid per DEC. Dtr showed up and pt. to be d/c'd home with meclizine and zofran. Pt. was yelling from room and reported that she had vomited. Pt. medicated with zofran and then given meclizine for the dizziness. IV was removed from wrist in anticipation of d/c. Pt. became more upset and continued to complain of dizziness. MD notified and hospitalist called. Pt. to be admitted for observation. New IV placed in left AC. Pt. to be moved to overflow.
[2022-11-03 06:34] LABS: Alanine Aminotransferase 6 U/L (0-31); Albumin Level 3.3 g/dL (3.5-5.0); Alkaline Phosphatase 73 U/L (39-117); Anion Gap 11 (12-20); Aspartate Amino Transferase 13 U/L (5-31); Bilirubin Total 0.4 mg/dL (0.0-1.0); Blood Urea Nitrogen 15 mg/dL (9-16); Carbon Dioxide 24 mmol/L (22-29); Chloride 109 mmol/L (96-108); Creatinine Clr Calc Pharmacy 80.8; Estimated Glomerular Filt Rate > 60; Glucose Random 116 mg/dL (60-115); Potassium 4.1 mmol/L (3.3-5.1); Sodium 140 mmol/L (135-145); Total Protein 5.6 g/dL (6.5-8.0)
[2022-11-03 06:43] VITALS: BP 103/56; PULSE 78; RESP 20; TEMP 36.7; O2SAT 93
--- NOTE | 2022-11-03 07:12 | PC.NURSE ---
report given to ROLAND Zapata
[2022-11-03 07:57] VITALS: BP 101/45; PULSE 84; RESP 18; TEMP 36.7; O2SAT 96
[2022-11-03 09:13] VITALS: BP 138/56; PULSE 81; RESP 13; TEMP 36.6; O2SAT 97
--- NOTE | 2022-11-03 09:25 | PHA.MEDREC ---
Pharmacy Consult ? Medication Reconciliation Pharmacy has completed the medication reconciliation. Patient states taking only prednisone 10mg daily because they were taking 40mg daily, but it made them too dizzy and claimed to be falling everywhere. The patient also has a methotrexate 50mg/2mL injection they are supposed to take, but are not taking because they have been advised by a HCP to not take while taking the rifampin 300mg bid medication for TB, stating they said it could activate the TB. She stated that she has 1 month and a half left of her 4-month rifampin treatment before she can start the methotrexate injection.
[2022-11-03] MEDS: 0.9 % Sodium Chloride Flush 3 ML SYRINGE IVFLUSH (10:30)
--- NOTE | 2022-11-03 10:30 | PC.NURSE ---
PT IS A/O X 4 NO SOB/CARMELA NOTED SPEAKS IN FULL SENTENCES. C/O SLIGHT NAUSEA MED X 1 WITH ZOFRAN 4MG IVP. C/O DIZZINESS, MED X 1 WITH MECLZINE 25MG PO, PRN. PT AWARE OF PLAN OF CARE. PT SEEN BY DR. WEIR EARLIER.
--- NOTE | 2022-11-03 11:50 | P.EN_ITS ---
Event Note Date of Service: 11/03/22 Event Note: day hospitalist update S c/o vertigo and nausea, L-sided BAHENA O Temp Pulse Resp BP Pulse Ox O2 Del Method 97.8 F 81 13 138/56 L 97 11/03/22 09:13 11/03/22 09:13 11/03/22 09:13 11/03/22 09:13 11/03/22 09:13 11/03/22 09:13 Gen: in no acute distress HEENT: sclera anicteric, moist mucus membranes Neck: supple Lungs: clear to auscultation bilaterally Heart: regular rate and rhythm, no murmurs Abd: soft, non-tender, non-distended Ext: no edema Skin: warm/well-perfused Neuro: alert and oriented x3, horizontal nystagmus Psych: appropriate affect A/P hospital d#1 67yo F with LTBI on RIF, HTN, HLD, fibromyalgia, MATTHEW, prior hx vertigo presen ting with acute vertigo # acute vertigo - MRI to r/o central etiology, Neuro consult, PT eval # MATTHEW # fibromyalgia - continue lorazepam, cyclobenzaprine, duloxetine # HTN - continue lisinopril # LTBI - continue RIF # VTE ppx: LMWH # dispo: pending PT eval In my clinical judgment, the patient requires continued inpatient hospitalization for the following reasons: acute vertigo, unable to ambulate, MRI + PT eval pending Time Spent With Patient Time: Total time managing care of this patient today ___25_ minutes.
--- NOTE | 2022-11-03 12:27 | PC.NURSE ---
pt to mri via bed.
[2022-11-03 13:08] VITALS: BP 125/64; PULSE 78; RESP 24; O2SAT 92
[2022-11-03 14:23] VITALS: BP 127/70; PULSE 78; RESP 12; TEMP 36.7; O2SAT 98
--- NOTE | 2022-11-03 14:52 | MHC.CM.PN ---
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
[2022-11-03 17:51] LABS: COVID-19 Test Negative (Negative); IDNOW Serial# 16C4AD1C
--- NOTE | 2022-11-03 18:15 | PM.NEUROCN ---
History of Present Illness Data of Consult Service Date: 11/03/22 Primary Care Provider: Federico Yates MD [facility] Reason for consult: dizziness with vomiting and inability to walk This is a 67-year-old female with history of latent TB on rifampicin, essential hypertension, fibromyalgia, history of previous episode of vertigo, generalized anxiety disorder, presented to the emergency department for evaluation of sudden onset of vertigo about 3 hours prior to arrival, that persisted and was associated with nausea and multiple episodes of vomiting. She is unable to ambulate occasionally falling to 1 side.? Also has had intermittent confusion.? Patient states she has history of vertigo and the last time she had this severe vertigo it was when she had a stroke about 3 years ago.? Complains of generalized weakness. MRI brain is negative for acute stroke or other abnbormality and no old stroke to confirm her narrative. Review of Systems Review of Systems: Yes all other systems are reviewed and are negative Constitutional: Constitutional: Reports fatigue, Reports lethargy and Reports malaise ENT: Reports vertigo Cardiovascular: Cardiovascular: Reports no additional cardiovascular complaints Respiratory: Respiratory: Reports no additional respiratory complaints Gastrointestinal: Gastrointestinal: Reports no additional gastrointestinal complaints Neurologic: Reports vertigo Endocrine: Endocrine: Reports fatigue PMFSH Past Medical History Medical History (Updated 11/03/22 @ 02:46 by Susan Reis MD) Anxiety Arthritis Asthma Cough Fibromyalgia HTN (hypertension) Latent tuberculosis Myofascial muscle pain Osteoarthritis Sleep disorder breathing Family History Family History Other Mental health disorder Social History Social History Housing: Apartment Alcohol intake: never Patient Tobacco Use Status: Never used Tobacco e-Cigarette/Vaping Use: Never Used Advance Directives: Yes Advance Directives on File: Yes Advance Directives Date on File: 02/26/22 service: No Current occupational status: unemployed Cognitive needs: No Hearing needs: No Vision needs: No Meds Allergies Allergy/AdvReac Type Severity Reaction Status Date / Time acetaminophen [From Tylenol] Allergy Shortness Verified 08/10/22 11:17 of Breath Active Medications: Current Medications Acetaminophen (Acetaminophen 325 Mg Tablet) 650 mg PO Q6H PRN PRN Reason: Pain, Mild (Pain Scale 1-3) Al Hydroxide/Mg Hydroxide (Magnesium Hydrox/Alum Hydrox 30 Ml Oral.Susp) 5 ml PO TID [facility] Last Admin: 11/03/22 16:29 Dose: Not Given Albuterol Sulfate (Albuterol Sulfate (0.042%) 1.25 Mg/3 Ml Vial.Neb) 0.63 mg INHALE QID PRN PRN Reason: shortness of breath or wheezing Atorvastatin Calcium (Atorvastatin Calcium 10 Mg Tablet) 10 mg PO BEDTIME [facility] Capsaicin (Capsaicin 0.025% Cream 60 Gm Tube) 1 appl TOPICAL BID [facility]; Protocol Cyclobenzaprine HCl (Cyclobenzaprine Hcl 5 Mg Tablet) 5 mg PO BID [facility] Duloxetine HCl (Duloxetine Hcl 20 Mg Capsule.) 20 mg PO DAILY [facility] Enoxaparin Sodium (Enoxaparin Sodium 40 Mg/0.4 Ml Syringe) 40 mg SUBCUT Q24H [facility] Last Admin: 11/03/22 03:33 Dose: 40 mg Promethazine HCl 12.5 mg/ (Sodium Chloride) 50.5 mls @ 202 mls/hr IV Q6H PRN PRN Reason: N/V refractory to Zofran Lisinopril (Lisinopril 5 Mg Tablet) 5 mg PO DAILY [facility]; Protocol Lorazepam (Lorazepam 0.5 Mg Tablet) 0.5 mg PO DAILY PRN PRN Reason: Anxiety Lorazepam (Lorazepam 1 Mg Tablet) 2 mg PO BEDTIME [facility] Meclizine HCl (Meclizine Hcl 25 Mg Tablet) 25 mg PO Q6H PRN PRN Reason: Vertigo Last Admin: 11/03/22 10:30 Dose: 25 mg Melatonin (Melatonin 3 Mg Tablet) 6 mg PO BEDTIME PRN PRN Reason: Insomnia Montelukast Sodium (Montelukast Sodium 10 Mg Tablet) 10 mg PO BEDTIME [facility] Omeprazole (Omeprazole 20 Mg Capsule.) 20 mg PO DAILY@0630 [facility] Ondansetron HCl (Ondansetron Hcl 4 Mg/2 Ml Vial) 4 mg IVPUSH Q4H PRN PRN Reason: Nausea and Vomiting Last Admin: 11/03/22 17:14 Dose: 4 mg Pharmacy Consult (Consult Rx Perform Med Rec) 1 each MISCELLANE ONCE PRN PRN Reason: Consult order Prednisone (Prednisone 10 Mg Tablet) 10 mg PO DAILY [facility] Rifampin (Rifampin 300 Mg Capsule) 300 mg PO BID [facility] Sodium Chloride (0.9 % Sodium Chloride Flush 3 Ml Syringe) 3 ml IVFLUSH QSHIFT [facility] Last Admin: 11/03/22 17:14 Dose: Not Given Home Medications Medication Instructions Recorded Confirmed Last Taken Type lorazepam 0.5 mg tablet 1 tab PO DAILY PRN Anxiety 09/05/22 11/03/22 Unknown History lorazepam 1 mg tablet 2 tab PO BEDTIME 09/05/22 11/03/22 11/02/22 History pantoprazole 40 mg tablet,delayed 40 mg PO DAILY@0630 09/05/22 11/03/22 11/02/22 History release rifampin 300 mg capsule 1 cap PO BID 09/05/22 11/03/22 11/01/22 History simvastatin 20 mg tablet 20 mg PO BEDTIME 09/05/22 11/03/22 11/02/22 History capsaicin 0.025 % topical cream 1 appl topical BID 11/03/22 11/03/22 11/02/22 History montelukast 10 mg tablet 10 mg PO BEDTIME 11/03/22 11/03/22 11/02/22 History prednisone 10 mg tablet 1 tab PO DAILY 11/03/22 11/03/22 11/02/22 History Physical Exam Vital Signs: Vital Signs: Last Vital Signs Temp 98.1 F 11/03/22 14:23 Pulse 78 11/03/22 14:23 Resp 12 11/03/22 14:23 BP 127/70 11/03/22 14:23 Pulse Ox 98 11/03/22 14:23 O2 Del Method 11/03/22 14:23 BMI result Body Mass Index 27.1 Neuro: Other: Alert and oriented with normal intellectual functions. Cranial nerves II through XII are normal. No definite nystagmus. Nonfocal examination. Results Labs 11/02/22 21:10 11/03/22 05:58 Labs: Short CBC 11/02/22 Range/Units 21:10 WBC 10.8 (4.8-10.8) X10*3/uL Hgb 13.5 (12.0-16.0) g/dl Hct 40.1 (37.0-47.0) % Plt Count 266 D (160-400) X10*3/uL BMP 11/02/22 11/03/22 21:09 05:58 Sodium 141 140 Potassium 3.7 4.1 Chloride 105 109 H Carbon Dioxide 27 24 BUN 14 15 Creatinine 0.69 0.74 Calcium 9.4 9.0 Liver Function 11/02/22 11/03/22 Range/Units 21:09 05:58 Total Bilirubin 0.3 0.4 (0.0-1.0) mg/dL AST 16 13 (5-31) U/L ALT 7 6 (0-31) U/L Alkaline Phosphatase 86 73 (39-117) U/L Albumin 4.0 3.3 L (3.5-5.0) g/dL Assessment and Plan (1) Vertigo: Status: Acute Probable Vestibular neuronitisWith vertigo and vomiting. MRI of the brain is unremarkable. Recommendation meclizine 25 mg 3 times a day. Clonazepam 0.5 mg at bedtime to help with both anxiety and vertigo. (2) Fibromyalgia: Status: Acute (3) Chronic pain syndrome: Status: Acute (4) Anxiety: Status: Acute (5) Latent tuberculosis: Status: Acute Plan this is a 67-year-old female with pertinent history of latent TB on rifampicin, essential hypertension, fibromyalgia, history of vertigo, generalized anxiety disorder who presents to the emergency department for evaluation of vertigo and nausea. #. Vertigo: Obtaining MRI to rule out central etiology. Symptomatic control with Zofran and meclizine p.r.n. #. Generalized anxiety disorder /fibromyalgia: Continue lorazepam, Flexeril and duloxetine #. essential hypertension: On lisinopril #. latent TB: On rifampicin DVT prophylaxis: Lovenox 40 mg daily Cardiac diet Full code Time Spent With Patient Time: Total time managing care of this patient today ____ minutes. Procedures Date of Service Date of Service: 11/03/22
[2022-11-03] MEDS: Atorvastatin Calcium 10 MG TABLET PO (22:22)
[2022-11-03] MEDS: Cyclobenzaprine HCl 5 MG TABLET PO (22:23)
[2022-11-03] MEDS: LORazepam 1 MG TABLET 2 MG PO (22:24)
[2022-11-03] MEDS: rifAMPin 300 MG CAPSULE PO (22:24)
[2022-11-03] MEDS: Montelukast Sodium 10 MG TABLET PO (22:25)
[2022-11-03] MEDS: Magnesium Hydrox/Alum Hydrox 30 ML ORAL.SUSP 5 ML PO (22:36)
[2022-11-04] VITALS (7 sets, daily range): BP systolic 103–136; BP diastolic 53–71; PULSE 78–94; RESP 16–20; TEMP 36.3–36.8; O2SAT 96–100
--- NOTE | 2022-11-04 04:24 | PC.NURSE ---
pt ambulated to bathroom with one assist. gait unsteady, pt wanted to wash up in the bathroom at this time with complete liner roll changer. pt has a hairdryer in her room and uses it to dry her body with . Pt states she is feeling dizzy while walking back to bed. However pt did wash herself up with no difficultly with balance in the bathroom. pt wants her room warm and lights out. pt placed on the monitor and iv secured.
[2022-11-04] MEDS: Meclizine HCl 25 MG TABLET PO ×4 (04:56→22:33)
[2022-11-04] MEDS: Omeprazole 20 MG CAPSULE.DR PO (06:03)
[2022-11-04] MEDS: Magnesium Hydrox/Alum Hydrox 30 ML ORAL.SUSP 5 ML PO ×2 (09:21→15:42)
[2022-11-04] MEDS: 0.9 % Sodium Chloride Flush 3 ML SYRINGE IVFLUSH ×2 (09:21→15:42)
[2022-11-04] MEDS: predniSONE 10 MG TABLET PO (09:21)
[2022-11-04] MEDS: rifAMPin 300 MG CAPSULE PO ×2 (09:21→22:41)
[2022-11-04] MEDS: Cyclobenzaprine HCl 5 MG TABLET PO ×2 (09:21→22:31)
[2022-11-04] MEDS: ondansetron HCL 4 MG/2 ML VIAL IVPUSH ×2 (11:24→21:15)
[2022-11-04] MEDS: predniSONE 20 MG TABLET 60 MG PO (11:24)
--- NOTE | 2022-11-04 11:25 | P.PNIM_ITS ---
Subjective Subjective Date of Service: 11/04/22 Interval History: c/o nausea, severe vertigo, great difficulty walking Review of Systems Review of Systems: Yes all other systems are reviewed and are negative Physical Exam Vital Signs: Vital Signs: Last Vital Signs Temp 97.7 F 11/04/22 10:04 Pulse 84 11/04/22 10:04 Resp 20 11/04/22 10:04 BP 136/62 11/04/22 10:04 Pulse Ox 96 11/04/22 10:04 O2 Del Method 11/04/22 10:04 BMI result Body Mass Index 27.1 Gen: in no acute distress HEENT: sclera anicteric, moist mucus membranes Neck: supple Lungs: clear to auscultation bilaterally Heart: regular rate and rhythm, no murmurs Abd: soft, non-tender, non-distended Ext: no edema Skin: warm/well-perfused Neuro: alert and oriented x3, nystagmus Psych: appropriate affect Objective Data Active Medications Acetaminophen (Acetaminophen 325 Mg Tablet) 650 mg PO Q6H PRN PRN Reason: Pain, Mild (Pain Scale 1-3) Al Hydroxide/Mg Hydroxide (Magnesium Hydrox/Alum Hydrox 30 Ml Oral.Susp) 5 ml PO TID [facility] Last Admin: 11/04/22 09:21 Dose: 5 ml Documented By: JUAN CARLOS Albuterol Sulfate (Albuterol Sulfate (0.042%) 1.25 Mg/3 Ml Vial.Neb) 0.63 mg INHALE QID PRN PRN Reason: shortness of breath or wheezing Atorvastatin Calcium (Atorvastatin Calcium 10 Mg Tablet) 10 mg PO BEDTIME [facility] Last Admin: 11/03/22 22:22 Dose: 10 mg Documented By: KARELY Capsaicin (Capsaicin 0.025% Cream 60 Gm Tube) 1 appl TOPICAL BID [facility]; Protocol Last Admin: 11/04/22 09:27 Dose: Not Given Documented By: JUAN CARLOS Non-Admin Reason: Med Not Available Clonazepam (Clonazepam 0.125 Mg Tab.Rapdis) 0.5 mg PO BEDTIME [facility] Cyclobenzaprine HCl (Cyclobenzaprine Hcl 5 Mg Tablet) 5 mg PO BID [facility] Last Admin: 11/04/22 09:21 Dose: 5 mg Documented By: JUAN CARLOS Duloxetine HCl (Duloxetine Hcl 20 Mg Capsule.Dr) 20 mg PO DAILY [facility] Last Admin: 11/04/22 09:27 Dose: Not Given Documented By: JUAN CARLOS Non-Admin Reason: Patient Refused Enoxaparin Sodium (Enoxaparin Sodium 40 Mg/0.4 Ml Syringe) 40 mg SUBCUT Q24H [facility] Last Admin: 11/04/22 03:00 Dose: Not Given Documented By: PHUONG Non-Admin Reason: Patient Refused Promethazine HCl 12.5 mg/ (Sodium Chloride) 50.5 mls @ 202 mls/hr IV Q6H PRN PRN Reason: N/V refractory to Zofran Sodium Chloride (Ns) 1,000 mls @ 125 mls/hr IVCONT .Q8H [facility] Lisinopril (Lisinopril 5 Mg Tablet) 5 mg PO DAILY [facility]; Protocol Last Admin: 11/04/22 09:29 Dose: Not Given Documented By: JUAN CARLOS Non-Admin Reason: Patient Refused Lorazepam (Lorazepam 0.5 Mg Tablet) 0.5 mg PO DAILY PRN PRN Reason: Anxiety Lorazepam (Lorazepam 1 Mg Tablet) 2 mg PO BEDTIME [facility] Last Admin: 11/03/22 22:24 Dose: 2 mg Documented By: KARELY Meclizine HCl (Meclizine Hcl 25 Mg Tablet) 25 mg PO TID [facility] Last Admin: 11/04/22 09:21 Dose: 25 mg Documented By: JUAN CARLOS Melatonin (Melatonin 3 Mg Tablet) 6 mg PO BEDTIME PRN PRN Reason: Insomnia Montelukast Sodium (Montelukast Sodium 10 Mg Tablet) 10 mg PO BEDTIME [facility] Last Admin: 11/03/22 22:25 Dose: 10 mg Documented By: KARELY Omeprazole (Omeprazole 20 Mg Capsule.) 20 mg PO DAILY@0630 [facility] Last Admin: 11/04/22 06:03 Dose: 20 mg Documented By: MARGARITA Ondansetron HCl (Ondansetron Hcl 4 Mg/2 Ml Vial) 4 mg IVPUSH Q4H PRN PRN Reason: Nausea and Vomiting Last Admin: 11/03/22 17:14 Dose: 4 mg Documented By: KARELY Pharmacy Consult (Consult Rx Perform Med Rec) 1 each MISCELLANE ONCE PRN PRN Reason: Consult order Prednisone (Prednisone 20 Mg Tablet) 60 mg PO DAILY [facility] Rifampin (Rifampin 300 Mg Capsule) 300 mg PO BID [facility] Last Admin: 11/04/22 09:21 Dose: 300 mg Documented By: JUAN CARLOS Sodium Chloride (0.9 % Sodium Chloride Flush 3 Ml Syringe) 3 ml IVFLUSH QSHIFT [facility] Last Admin: 11/04/22 09:21 Dose: 3 ml Documented By: JUAN CARLOS Labs 11/02/22 21:10 11/03/22 05:58 Labs: Laboratory Results - last 24 hr 11/03/22 17:22 COVID-19 ([facility]) Negative COVID-19 Clin Com See Note Impressions Brain MRI 11/03/22 12:38 IMPRESSION: No acute infarct, mass lesion, intracranial hemorrhage, or evidence of hydrocephalus. Assessment and Plan (1) Vertigo: Status: Acute [facility] hospital d#2 67yo F with LTBI on RIF, HTN, HLD, fibromyalgia, RA, MATTHEW, prior hx vertigo presenting with acute vertigo # acute vertigo, likely vestibular neuritis - standing meclizine, prn ondansetron + promethazine; IV fluids - PT eval - Neuro consulted, MRI negative - will start prednisone 60 mg/d x 5d, then 40 mg x 1d, then 30 mg x 1 d, then 20 mg x 1 d, then 10 mg- she is on 10 mg/d for rheumatoid arthritis # RA - on prednisone 10 mg/d but increasing dose for vestibular neuritis as qabove # MATTHEW # fibromyalgia - continue lorazepam, cyclobenzaprine, duloxetine # HTN - continue lisinopril # LTBI - continue RIF # VTE ppx: LMWH # dispo: pending PT eval In my clinical judgment, the patient requires continued inpatient hospitalization for the following reasons: acute vertigo, unable to ambulate, disposition pending, IV fluids Time Spent With Patient Time: Total time managing care of this patient today _40__ minutes. Quality Stroke Does the patient have a stroke diagnosis?: No VTE Prior VTE?: No VTE Risk Level:: Medical - moderate - high VTE Device Contraindication: Treatment Not Indicated VTE Drug Contraindication: N/A - Med Ordered
[2022-11-04] MEDS: 0.9 % Sodium Chloride 1,000 ML 125 ML IVCONT (11:40)
[2022-11-04] MEDS: LORazepam 1 MG TABLET 2 MG PO (22:32)
[2022-11-04] MEDS: Montelukast Sodium 10 MG TABLET PO (22:32)
[2022-11-04] MEDS: Atorvastatin Calcium 10 MG TABLET PO (22:33)
[2022-11-05] VITALS (7 sets, daily range): BP systolic 108–146; BP diastolic 57–87; PULSE 73–86; RESP 16–20; TEMP 36.2–37.1; O2SAT 95–98
[2022-11-05] MEDS: Omeprazole 20 MG CAPSULE.DR PO (06:18)
[2022-11-05] MEDS: 0.9 % Sodium Chloride 1,000 ML 125 ML IVCONT (06:18)
[2022-11-05] MEDS: lisinopriL 5 MG TABLET PO (08:57)
[2022-11-05] MEDS: ondansetron HCL 4 MG/2 ML VIAL IVPUSH (08:57)
[2022-11-05] MEDS: predniSONE 20 MG TABLET 60 MG PO (08:57)
[2022-11-05] MEDS: Meclizine HCl 25 MG TABLET PO ×3 (08:57→22:26)
[2022-11-05] MEDS: rifAMPin 300 MG CAPSULE PO ×2 (08:58→21:14)
[2022-11-05] MEDS: 0.9 % Sodium Chloride Flush 3 ML SYRINGE IVFLUSH ×3 (08:58→21:19)
--- NOTE | 2022-11-05 11:12 | HO.PM.IMPN ---
Subjective Subjective Date of Service: 11/05/22 Interval History: nausea improved c/o ongoing severe vertigo unable to ambulate yet, awaiting PT eval Review of Systems Review of Systems: Yes all other systems are reviewed and are negative Physical Exam Vital Signs: Vital Signs: Last Vital Signs Temp 98.1 F 11/05/22 08:00 Pulse 83 11/05/22 08:00 Resp 20 11/05/22 08:00 BP 127/87 11/05/22 08:00 Pulse Ox 96 11/05/22 08:00 O2 Del Method 11/05/22 08:00 BMI result Body Mass Index 27.1 Gen: in no acute distress HEENT: sclera anicteric, moist mucus membranes Neck: supple Lungs: clear to auscultation bilaterally Heart: regular rate and rhythm, no murmurs Abd: soft, non-tender, non-distended Ext: no edema Skin: warm/well-perfused Neuro: alert and oriented x3,? nystagmus Psych: appropriate affect Objective Data Active Medications Acetaminophen (Acetaminophen 325 Mg Tablet) 650 mg PO Q6H PRN PRN Reason: Pain, Mild (Pain Scale 1-3) Al Hydroxide/Mg Hydroxide (Magnesium Hydrox/Alum Hydrox 30 Ml Oral.Susp) 5 ml PO TID [facility] Last Admin: 11/05/22 09:02 Dose: Not Given Documented By: DESI Non-Admin Reason: Patient Refused Albuterol Sulfate (Albuterol Sulfate (0.042%) 1.25 Mg/3 Ml Vial.Neb) 0.63 mg INHALE QID PRN PRN Reason: shortness of breath or wheezing Atorvastatin Calcium (Atorvastatin Calcium 10 Mg Tablet) 10 mg PO BEDTIME [facility] Last Admin: 11/04/22 22:33 Dose: 10 mg Documented By: LIZ Capsaicin (Capsaicin 0.025% Cream 60 Gm Tube) 1 appl TOPICAL BID [facility]; Protocol Last Admin: 11/04/22 22:49 Dose: Not Given Documented By: LIZ Non-Admin Reason: Med not available Clonazepam (Clonazepam 0.125 Mg Tab.Rapdis) 0.5 mg PO BEDTIME [facility] Last Admin: 11/04/22 22:48 Dose: Not Given Documented By: LIZ Non-Admin Reason: Patient Refused Cyclobenzaprine HCl (Cyclobenzaprine Hcl 5 Mg Tablet) 5 mg PO BID [facility] Last Admin: 11/05/22 09:02 Dose: Not Given Documented By: DESI Non-Admin Reason: Patient Refused Duloxetine HCl (Duloxetine Hcl 20 Mg Capsule.) 20 mg PO DAILY [facility] Last Admin: 11/05/22 09:08 Dose: Not Given Documented By: DSEI Non-Admin Reason: Patient Refused Enoxaparin Sodium (Enoxaparin Sodium 40 Mg/0.4 Ml Syringe) 40 mg SUBCUT Q24H [facility] Last Admin: 11/05/22 05:02 Dose: Not Given Documented By: LIZ Non-Admin Reason: Patient Refused Promethazine HCl 12.5 mg/ (Sodium Chloride) 50.5 mls @ 202 mls/hr IV Q6H PRN PRN Reason: N/V refractory to Zofran Last Infusion: 11/05/22 02:06 Dose: 0 mls/hr Documented By: LIZ Sodium Chloride (Ns) 1,000 mls @ 125 mls/hr IVCONT .Q8H [facility] Last Admin: 11/05/22 06:18 Dose: 125 mls/hr Documented By: LIZ Lisinopril (Lisinopril 5 Mg Tablet) 5 mg PO DAILY [facility]; Protocol Last Admin: 11/05/22 08:57 Dose: 5 mg Documented By: DESI Lorazepam (Lorazepam 0.5 Mg Tablet) 0.5 mg PO DAILY PRN PRN Reason: Anxiety Lorazepam (Lorazepam 1 Mg Tablet) 2 mg PO BEDTIME [facility] Last Admin: 11/04/22 22:32 Dose: 2 mg Documented By: LIZ Meclizine HCl (Meclizine Hcl 25 Mg Tablet) 25 mg PO TID [facility] Last Admin: 11/05/22 08:57 Dose: 25 mg Documented By: DESI Melatonin (Melatonin 3 Mg Tablet) 6 mg PO BEDTIME PRN PRN Reason: Insomnia Montelukast Sodium (Montelukast Sodium 10 Mg Tablet) 10 mg PO BEDTIME [facility] Last Admin: 11/04/22 22:32 Dose: 10 mg Documented By: LIZ Omeprazole (Omeprazole 20 Mg Capsule) 20 mg PO DAILY@0630 [facility] Last Admin: 11/05/22 06:18 Dose: 20 mg Documented By: LIZ Ondansetron HCl (Ondansetron Hcl 4 Mg/2 Ml Vial) 4 mg IVPUSH Q4H PRN PRN Reason: Nausea and Vomiting Last Admin: 11/05/22 08:57 Dose: 4 mg Documented By: DESI Pharmacy Consult (Consult Rx Perform Med Rec) 1 each MISCELLANE ONCE PRN PRN Reason: Consult order Prednisone (Prednisone 20 Mg Tablet) 60 mg PO DAILY [facility] Last Admin: 11/05/22 08:57 Dose: 60 mg Documented By: DESI Rifampin (Rifampin 300 Mg Capsule) 300 mg PO BID [facility] Last Admin: 11/05/22 08:58 Dose: 300 mg Documented By: DESI Sodium Chloride (0.9 % Sodium Chloride Flush 3 Ml Syringe) 3 ml IVFLUSH QSHIFT [facility] Last Admin: 11/05/22 08:58 Dose: 3 ml Documented By: DESI Labs 11/02/22 21:10 11/03/22 05:58 Labs: ITS Impressions Head CT 11/02/22 21:24 IMPRESSION: No acute intracranial pathology. Brain MRI 11/03/22 12:38 IMPRESSION: No acute infarct, mass lesion, intracranial hemorrhage, or evidence of hydrocephalus. 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, HTN, HLD, fibromyalgia, RA, MATTHEW, prior hx vertigo presenting with acute vertigo # acute vertigo, likely vestibular neuritis - standing meclizine, prn ondansetron + promethazine; IV fluids - PT eval pending - Neuro consulted, MRI negative - on 11/04/22, started prednisone 60 mg/d x 5d, then 40 mg x 1d, then 30 mg x 1 d, then 20 mg x 1 d, then 10 mg- she is chronically on 10 mg/d for rheumatoid arthritis # RA - on prednisone 10 mg/d but increasing dose for vestibular neuritis as above # MATTHEW # fibromyalgia - continue lorazepam, cyclobenzaprine, duloxetine # HTN - continue lisinopril # LTBI - continue RIF # VTE ppx: LMWH # dispo: pending PT eval In my clinical judgment, the patient requires continued inpatient hospitalization for the following reasons: acute vertigo, unable to ambulate, disposition pending, IV fluids Time Spent With Patient Time: Total time managing care of this patient today __35__ minutes. Quality Stroke Does the patient have a stroke diagnosis?: No VTE Prior VTE?: No VTE Risk Level:: Medical - moderate - high VTE Device Contraindication: Treatment Not Indicated VTE Drug Contraindication: N/A - Med Ordered
[2022-11-05] MEDS: Sennosides/Docusate Sodium TABLET 2 TAB PO ×2 (15:51→21:16)
[2022-11-05] MEDS: Magnesium Hydrox/Alum Hydrox 30 ML ORAL.SUSP 5 ML PO ×2 (15:51→21:16)
[2022-11-05] MEDS: polyethylene glycoL 3350 17 GM POWD.PACK PO (15:51)
[2022-11-05] MEDS: Cyclobenzaprine HCl 5 MG TABLET PO (21:14)
[2022-11-05] MEDS: Montelukast Sodium 10 MG TABLET PO (21:16)
[2022-11-05] MEDS: Atorvastatin Calcium 10 MG TABLET PO (21:17)
[2022-11-05] MEDS: Capsaicin 0.025% Cream 60 GM TUBE 1 APPL TOPICAL (21:18)
[2022-11-06] MEDS: Enoxaparin Sodium 40 MG/0.4 ML SYRINGE SUBCUT (02:57)
[2022-11-06] MEDS: 0.9 % Sodium Chloride 1,000 ML 125 ML IVCONT ×3 (03:07→21:58)
[2022-11-06] MEDS: ondansetron HCL 4 MG/2 ML VIAL IVPUSH ×2 (04:11→21:01)
[2022-11-06] MEDS: LORazepam 0.5 MG TABLET PO (04:17)
--- NOTE | 2022-11-06 07:03 | PC.NURSE ---
Patient refused 04:00 vitals.
[2022-11-06 08:00] VITALS: BP 112/60; PULSE 73; RESP 20; TEMP 36.4; O2SAT 98
[2022-11-06] MEDS: polyethylene glycoL 3350 17 GM POWD.PACK PO (09:40)
[2022-11-06] MEDS: Sennosides/Docusate Sodium TABLET 2 TAB PO ×2 (09:40→21:41)
[2022-11-06] MEDS: Magnesium Hydrox/Alum Hydrox 30 ML ORAL.SUSP 5 ML PO ×2 (09:40→14:40)
[2022-11-06] MEDS: 0.9 % Sodium Chloride Flush 3 ML SYRINGE IVFLUSH ×2 (09:40→16:25)
[2022-11-06] MEDS: rifAMPin 300 MG CAPSULE PO ×2 (09:41→21:43)
[2022-11-06] MEDS: Meclizine HCl 25 MG TABLET 50 MG PO ×3 (09:41→21:41)
[2022-11-06] MEDS: lisinopriL 5 MG TABLET PO (09:41)
[2022-11-06] MEDS: Capsaicin 0.025% Cream 60 GM TUBE 1 APPL TOPICAL ×2 (09:45→21:56)
[2022-11-06 10:53] VITALS: BP 112/60; PULSE 73; O2SAT 98
[2022-11-06 12:00] VITALS: BP 101/50; PULSE 71; RESP 20; TEMP 36.9; O2SAT 95
--- NOTE | 2022-11-06 12:20 | HO.PM.IMPN ---
Subjective Subjective Date of Service: 11/06/22 Interval History: nausea improved c/o ongoing severe vertigo unable to ambulate yet Review of Systems Review of Systems: Yes all other systems are reviewed and are negative Physical Exam Vital Signs: Vital Signs: Last Vital Signs Temp 97.5 F 11/06/22 08:00 Pulse 73 11/06/22 10:53 Resp 20 11/06/22 08:00 BP 112/60 11/06/22 10:53 Pulse Ox 98 11/06/22 10:53 O2 Del Method 11/06/22 08:00 BMI result Body Mass Index 27.1 Appearing in no acute distress lung sounds are clear to auscultation heart regular rate rhythm, clear S1, S2 positive bowel sounds, abdomen is soft, nontender neuro patient is alert x3, no focal deficits Objective Data Active Medications Acetaminophen (Acetaminophen 325 Mg Tablet) 650 mg PO Q6H PRN PRN Reason: Pain, Mild (Pain Scale 1-3) Al Hydroxide/Mg Hydroxide (Magnesium Hydrox/Alum Hydrox 30 Ml Oral.Susp) 5 ml PO TID [facility] Last Admin: 11/06/22 09:40 Dose: 5 ml Documented By: DESI Albuterol Sulfate (Albuterol Sulfate (0.042%) 1.25 Mg/3 Ml Vial.Neb) 0.63 mg INHALE QID PRN PRN Reason: shortness of breath or wheezing Atorvastatin Calcium (Atorvastatin Calcium 10 Mg Tablet) 10 mg PO BEDTIME [facility] Last Admin: 11/05/22 21:17 Dose: 10 mg Documented By: LIZ Capsaicin (Capsaicin 0.025% Cream 60 Gm Tube) 1 appl TOPICAL BID [facility]; Protocol Last Admin: 11/06/22 09:45 Dose: 1 appl Documented By: DESI Clonazepam (Clonazepam 0.125 Mg Tab.Rapdis) 0.5 mg PO BEDTIME [facility] Last Admin: 11/05/22 21:14 Dose: 0.5 mg Documented By: LIZ Cyclobenzaprine HCl (Cyclobenzaprine Hcl 5 Mg Tablet) 5 mg PO BID [facility] Last Admin: 11/06/22 09:41 Dose: Not Given Documented By: DESI Non-Admin Reason: Patient Refused Duloxetine HCl (Duloxetine Hcl 20 Mg Capsule.) 20 mg PO DAILY [facility] Last Admin: 11/06/22 09:41 Dose: Not Given Documented By: DESI Non-Admin Reason: Patient Refused Enoxaparin Sodium (Enoxaparin Sodium 40 Mg/0.4 Ml Syringe) 40 mg SUBCUT Q24H [facility] Last Admin: 11/06/22 02:57 Dose: 40 mg Documented By: LIZ Promethazine HCl 12.5 mg/ (Sodium Chloride) 50.5 mls @ 202 mls/hr IV Q6H PRN PRN Reason: N/V refractory to Zofran Last Infusion: 11/05/22 02:06 Dose: 0 mls/hr Documented By: LIZ Sodium Chloride (Ns) 1,000 mls @ 125 mls/hr IVCONT .Q8H [facility] Last Infusion: 11/06/22 11:58 Dose: 0 mls/hr Documented By: DESI Lidocaine (Lidocaine 4 % Patch Adh..Patch) 1 patch TRANSDERMA DAILY [facility] Last Admin: 11/06/22 11:59 Dose: Not Given Documented By: DESI Non-Admin Reason: Patient Refused Lisinopril (Lisinopril 5 Mg Tablet) 5 mg PO DAILY [facility]; Protocol Last Admin: 11/06/22 09:41 Dose: 5 mg Documented By: DESI Lorazepam (Lorazepam 0.5 Mg Tablet) 0.5 mg PO DAILY PRN PRN Reason: Anxiety Last Admin: 11/06/22 04:17 Dose: 0.5 mg Documented By: LIZ Lorazepam (Lorazepam 1 Mg Tablet) 2 mg PO BEDTIME [facility] Last Admin: 11/05/22 22:26 Dose: Not Given Documented By: LIZ Non-Admin Reason: Patient Refused Meclizine HCl (Meclizine Hcl 25 Mg Tablet) 50 mg PO TID [facility] Last Admin: 11/06/22 09:41 Dose: 50 mg Documented By: DESI Melatonin (Melatonin 3 Mg Tablet) 6 mg PO BEDTIME PRN PRN Reason: Insomnia Montelukast Sodium (Montelukast Sodium 10 Mg Tablet) 10 mg PO BEDTIME [facility] Last Admin: 11/05/22 21:16 Dose: 10 mg Documented By: LIZ Omeprazole (Omeprazole 20 Mg Capsule.Dr) 20 mg PO DAILY@0630 [facility] Last Admin: 11/06/22 06:29 Dose: Not Given Documented By: LIZ Non-Admin Reason: Patient Refused Ondansetron HCl (Ondansetron Hcl 4 Mg/2 Ml Vial) 4 mg IVPUSH Q4H PRN PRN Reason: Nausea and Vomiting Last Admin: 11/06/22 04:11 Dose: 4 mg Documented By: LIZ Pharmacy Consult (Consult Rx Perform Med Rec) 1 each MISCELLANE ONCE PRN PRN Reason: Consult order Polyethylene Glycol (Polyethylene Glycol 3350 17 Gm Powd.Pack) 17 gm PO DAILY [facility] Last Admin: 11/06/22 09:40 Dose: 17 gm Documented By: DESI Prednisone (Prednisone 20 Mg Tablet) 60 mg PO DAILY [facility] Last Admin: 11/06/22 09:41 Dose: Not Given Documented By: DESI Non-Admin Reason: Patient Refused Rifampin (Rifampin 300 Mg Capsule) 300 mg PO BID [facility] Last Admin: 11/06/22 09:41 Dose: 300 mg Documented By: DESI Senna/Docusate Sodium (Sennosides/Docusate Sodium Tablet) 2 tab PO BID [facility] Last Admin: 11/06/22 09:40 Dose: 2 tab Documented By: DESI Sodium Chloride (0.9 % Sodium Chloride Flush 3 Ml Syringe) 3 ml IVFLUSH QSHIFT [facility] Last Admin: 11/06/22 09:40 Dose: 3 ml Documented By: DESI Labs 11/02/22 21:10 11/03/22 05:58 Assessment and Plan (1) Vertigo: Status: Acute Plan 67yo F with 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, HTN, HLD, fibromyalgia, RA, MATTHEW, prior hx vertigo presenting with acute vertigo Acute vertigo, likely vestibular neuritis standing meclizine increased to 50mg TID, prn ondansetron + promethazine; IV fluids PT eval pending Neuro consulted, MRI negative on 11/04/22, started prednisone 60 mg/d x 5d, then 40 mg x 1d, then 30 mg x 1 d, then 20 mg x 1 d, then 10 mg- she is chronically on 10 mg/d for rheumatoid arthritis Left should pain kpad and lidocaine patch toradol Headache Left side Likely MSK from shoulder pain symptom management RA on prednisone 10 mg/d but increasing dose for vestibular neuritis as above MATTHEW fibromyalgia continue lorazepam, cyclobenzaprine, duloxetine HTN continue lisinopril Latent TB hx continue Rifampin VTE ppx: LMWH Attending Dr. Sanderson dispo: pending PT eval In my clinical judgment, the patient requires continued inpatient hospitalization for the following reasons: acute vertigo, unable to ambulate, disposition pending, IV fluids Time Spent With Patient Time: Total time managing care of this patient today ____ minutes. Quality Stroke Does the patient have a stroke diagnosis?: No VTE Prior VTE?: No VTE Risk Level:: Medical - moderate - high VTE Device Contraindication: Treatment Not Indicated VTE Drug Contraindication: N/A - Med Ordered
--- NOTE | 2022-11-06 15:13 | MHC.CM.PN ---
Per MD rounds patient is not ready for discharge today. PT rec STR. Patient is scheduled for a Permacath placement 11/09/22. [facility] is following.
[2022-11-06 15:40] VITALS: BP 117/56; PULSE 77; RESP 19; TEMP 36.4; O2SAT 95
[2022-11-06 19:10] VITALS: BP 118/67; PULSE 77; RESP 16; TEMP 36.6; O2SAT 96
--- NOTE | 2022-11-06 21:16 | PC.NURSE ---
11/06/2022 21:17 Small pink round pill found at bedside; upon research discarded by this RN and witnessed by Sonya Valdovinos RN in waste bin.
[2022-11-06] MEDS: LORazepam 1 MG TABLET 2 MG PO (21:41)
[2022-11-06] MEDS: Montelukast Sodium 10 MG TABLET PO (21:43)
[2022-11-06] MEDS: Atorvastatin Calcium 10 MG TABLET PO (21:43)
[2022-11-06] MEDS: Cyclobenzaprine HCl 5 MG TABLET PO (21:44)
[2022-11-06] MEDS: Ketorolac Tromethamine 15 MG/ML VIAL IVPUSH (21:47)
[2022-11-06 23:24] VITALS: BP 107/57; PULSE 73; RESP 20; TEMP 36.9; O2SAT 97
[2022-11-07] MEDS: LORazepam 0.5 MG TABLET PO (00:29)
--- NOTE | 2022-11-07 00:30 | PC.NURSE ---
11/06/2022 23:40 Patient refused 1mg of 2mg of lorazepam @2100 Med pass, now requesting 0.5 mg of the remaining 1mg given.
[2022-11-07] MEDS: Melatonin 3 MG TABLET 6 MG PO (00:50)
[2022-11-07] MEDS: 0.9 % Sodium Chloride Flush 3 ML SYRINGE IVFLUSH ×3 (01:52→22:03)
[2022-11-07 07:42] VITALS: BP 95/52; PULSE 74; RESP 18; TEMP 37.1; O2SAT 97
--- NOTE | 2022-11-07 09:10 | P.PNIM_ITS ---
Subjective Subjective Date of Service: 11/07/22 Interval History: nausea improved c/o ongoing severe vertigo unable to ambulate yet Left neck and back pain radiating to Left side of the head Review of Systems Review of Systems: Yes all other systems are reviewed and are negative Physical Exam Vital Signs: Vital Signs: Last Vital Signs Temp 98.7 F 11/07/22 07:42 Pulse 74 11/07/22 07:42 Resp 18 11/07/22 07:42 BP 95/52 L 11/07/22 07:42 Pulse Ox 97 11/07/22 07:42 O2 Del Method 11/07/22 07:42 BMI result Body Mass Index 27.1 Appearing in no acute distress lung sounds are clear to auscultation heart regular rate rhythm, clear S1, S2 positive bowel sounds, abdomen is soft, nontender neuro patient is alert x3, no focal deficits Objective Data Active Medications Al Hydroxide/Mg Hydroxide (Magnesium Hydrox/Alum Hydrox 30 Ml Oral.Susp) 5 ml PO TID [facility] Last Admin: 11/06/22 21:56 Dose: Not Given Documented By: JAY Non-Admin Reason: Patient Refused Albuterol Sulfate (Albuterol Sulfate (0.042%) 1.25 Mg/3 Ml Vial.Neb) 0.63 mg INHALE QID PRN PRN Reason: shortness of breath or wheezing Atorvastatin Calcium (Atorvastatin Calcium 10 Mg Tablet) 10 mg PO BEDTIME [facility] Last Admin: 11/06/22 21:43 Dose: 10 mg Documented By: JAY Capsaicin (Capsaicin 0.025% Cream 60 Gm Tube) 1 appl TOPICAL BID [facility]; Protocol Last Admin: 11/06/22 21:56 Dose: 1 appl Documented By: JAY Clonazepam (Clonazepam 0.125 Mg Tab.Rapdis) 0.5 mg PO BEDTIME [facility] Last Admin: 11/06/22 21:39 Dose: Not Given Documented By: JAY Non-Admin Reason: Patient Refused Cyclobenzaprine HCl (Cyclobenzaprine Hcl 5 Mg Tablet) 5 mg PO BID [facility] Last Admin: 11/06/22 21:44 Dose: 5 mg Documented By: JAY Duloxetine HCl (Duloxetine Hcl 20 Mg Capsule.Dr) 20 mg PO DAILY [facility] Last Admin: 11/06/22 09:41 Dose: Not Given Documented By: DESI Non-Admin Reason: Patient Refused Enoxaparin Sodium (Enoxaparin Sodium 40 Mg/0.4 Ml Syringe) 40 mg SUBCUT Q24H [facility] Last Admin: 11/07/22 02:36 Dose: Not Given Documented By: JAY Non-Admin Reason: Patient Refused Promethazine HCl 12.5 mg/ (Sodium Chloride) 50.5 mls @ 202 mls/hr IV Q6H PRN PRN Reason: N/V refractory to Zofran Last Infusion: 11/05/22 02:06 Dose: 0 mls/hr Documented By: LIZ Sodium Chloride (Ns) 1,000 mls @ 125 mls/hr IVCONT .Q8H [facility] Last Admin: 11/07/22 05:30 Dose: Not Given Documented By: JAY Non-Admin Reason: Patient Refused Ketorolac Tromethamine (Ketorolac Tromethamine 15 Mg/Ml Vial) 15 mg IVPUSH Q6H PRN PRN Reason: Pain, Mild (Pain Scale 1-3) Last Admin: 11/06/22 21:47 Dose: 15 mg Documented By: JAY Lidocaine (Lidocaine 4 % Patch Adh..Patch) 1 patch TRANSDERMA DAILY [facility] Last Admin: 11/06/22 11:59 Dose: Not Given Documented By: DESI Non-Admin Reason: Patient Refused Lisinopril (Lisinopril 5 Mg Tablet) 5 mg PO DAILY [facility]; Protocol Last Admin: 11/06/22 09:41 Dose: 5 mg Documented By: DESI Lorazepam (Lorazepam 0.5 Mg Tablet) 0.5 mg PO DAILY PRN PRN Reason: Anxiety Last Admin: 11/07/22 00:29 Dose: 0.5 mg Documented By: JAY Lorazepam (Lorazepam 1 Mg Tablet) 2 mg PO BEDTIME [facility] Last Admin: 11/06/22 21:41 Dose: 1 mg Meclizine HCl (Meclizine Hcl 25 Mg Tablet) 50 mg PO TID [facility] Last Admin: 11/06/22 21:41 Dose: 50 mg Documented By: JAY Melatonin (Melatonin 3 Mg Tablet) 6 mg PO BEDTIME PRN PRN Reason: Insomnia Last Admin: 11/07/22 00:50 Dose: 6 mg Documented By: JAY Montelukast Sodium (Montelukast Sodium 10 Mg Tablet) 10 mg PO BEDTIME [facility] Last Admin: 11/06/22 21:43 Dose: 10 mg Documented By: JAY Omeprazole (Omeprazole 20 Mg Capsule.Dr) 20 mg PO DAILY@0630 [facility] Last Admin: 11/07/22 05:55 Dose: Not Given Documented By: JAY Non-Admin Reason: Patient Asleep Ondansetron HCl (Ondansetron Hcl 4 Mg/2 Ml Vial) 4 mg IVPUSH Q4H PRN PRN Reason: Nausea and Vomiting Last Admin: 11/06/22 21:01 Dose: 4 mg Documented By: JAY Pharmacy Consult (Consult Rx Perform Med Rec) 1 each MISCELLANE ONCE PRN PRN Reason: Consult order Polyethylene Glycol (Polyethylene Glycol 3350 17 Gm Powd.Pack) 17 gm PO DAILY [facility] Last Admin: 11/06/22 09:40 Dose: 17 gm Documented By: DESI Prednisone (Prednisone 20 Mg Tablet) 60 mg PO DAILY [facility] Stop: 11/08/22 23:59 Last Admin: 11/06/22 09:41 Dose: Not Given Documented By: DESI Non-Admin Reason: Patient Refused Rifampin (Rifampin 300 Mg Capsule) 300 mg PO BID [facility] Last Admin: 11/06/22 21:43 Dose: 300 mg Documented By: JAY Senna/Docusate Sodium (Sennosides/Docusate Sodium Tablet) 2 tab PO BID [facility] Last Admin: 11/06/22 21:41 Dose: 2 tab Documented By: JAY Sodium Chloride (0.9 % Sodium Chloride Flush 3 Ml Syringe) 3 ml IVFLUSH QSHIFT [facility] Last Admin: 11/07/22 01:52 Dose: 3 ml Documented By: JAY Labs 11/02/22 21:10 11/03/22 05:58 Assessment and Plan (1) Vertigo: Status: Acute Plan 67yo F with 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, HTN, HLD, fibromyalgia, RA, MATTHEW, prior hx vertigo presenting with acute vertigo Acute vertigo, likely vestibular neuritis standing meclizine increased to 50mg TID, prn ondansetron + promethazine; IV fluids PT eval pending Neuro consulted, MRI negative on 11/04/22, started prednisone 60 mg/d x 5d, then 40 mg x 1d, then 30 mg x 1 d, then 20 mg x 1 d, then 10 mg- she is chronically on 10 mg/d for rheumatoid arthritis continue supportive care Left shoulder pain kpad and lidocaine patch (refused patch due to intolerance to cold) toradol Headache Left side Likely MSK from shoulder pain symptom management RA/fibromyalgia on prednisone 10 mg/d but increasing dose for vestibular neuritis as above intolerance to cold MATTHEW continue lorazepam, cyclobenzaprine, duloxetine HTN continue lisinopril Latent TB hx continue Rifampin VTE ppx: LMWH Attending Dr. Bustillo dispo: pending PT eval In my clinical judgment, the patient requires continued inpatient hospitalization for the following reasons: acute vertigo, unable to ambulate, disposition pending, IV fluids Time Spent With Patient Time: Total time managing care of this patient today ____ minutes. Quality Stroke Does the patient have a stroke diagnosis?: No VTE Prior VTE?: No VTE Risk Level:: Medical - moderate - high VTE Device Contraindication: Treatment Not Indicated VTE Drug Contraindication: N/A - Med Ordered
[2022-11-07] MEDS: Sennosides/Docusate Sodium TABLET 2 TAB PO (09:16)
[2022-11-07] MEDS: rifAMPin 300 MG CAPSULE PO ×2 (09:16→21:35)
[2022-11-07] MEDS: Meclizine HCl 25 MG TABLET 50 MG PO ×3 (09:16→21:38)
[2022-11-07] MEDS: Magnesium Hydrox/Alum Hydrox 30 ML ORAL.SUSP 5 ML PO ×3 (09:16→21:39)
[2022-11-07] MEDS: predniSONE 20 MG TABLET 60 MG PO (09:18)
[2022-11-07] MEDS: polyethylene glycoL 3350 17 GM POWD.PACK PO (09:19)
[2022-11-07] MEDS: Capsaicin 0.025% Cream 60 GM TUBE 1 APPL TOPICAL (09:20)
[2022-11-07] MEDS: 0.9 % Sodium Chloride 1,000 ML 125 ML IVCONT (10:29)
[2022-11-07 11:05] VITALS: BP 123/61; PULSE 76; RESP 18; TEMP 36.1; O2SAT 94
[2022-11-07 15:19] VITALS: BP 128/59; PULSE 92; RESP 18; TEMP 36.3; O2SAT 95
[2022-11-07 19:53] VITALS: BP 126/63; PULSE 88; RESP 18; TEMP 36.7; O2SAT 95
[2022-11-07] MEDS: Temazepam 15 MG CAPSULE 30 MG PO (21:33)
[2022-11-07] MEDS: LORazepam 1 MG TABLET 2 MG PO (21:35)
[2022-11-07] MEDS: Montelukast Sodium 10 MG TABLET PO (21:36)
[2022-11-07] MEDS: Atorvastatin Calcium 10 MG TABLET PO (21:36)
[2022-11-07] MEDS: Cyclobenzaprine HCl 5 MG TABLET PO (21:36)
--- NOTE | 2022-11-07 22:07 | PC.NURSE ---
2100 Med Pass pt refused 1mg OF 2 MG OF Ativan dose returned with witness.
[2022-11-07 23:58] VITALS: BP 112/77; PULSE 90; RESP 18; TEMP 36.6; O2SAT 98
[2022-11-08] MEDS: Enoxaparin Sodium 40 MG/0.4 ML SYRINGE SUBCUT (02:51)
[2022-11-08] MEDS: 0.9 % Sodium Chloride Flush 3 ML SYRINGE IVFLUSH ×3 (02:51→21:35)
[2022-11-08] MEDS: ondansetron HCL 4 MG/2 ML VIAL IVPUSH ×2 (03:07→21:35)
[2022-11-08 07:36] VITALS: BP 132/67; PULSE 81; RESP 18; TEMP 36.4; O2SAT 95
--- NOTE | 2022-11-08 08:33 | P.PNIM_ITS ---
Subjective Subjective Date of Service: 11/09/22 Interval History: nausea improved c/o ongoing severe vertigo unable to ambulate yet Left neck and back pain radiating to Left side of the head Review of Systems Review of Systems: Yes all other systems are reviewed and are negative Physical Exam Vital Signs: Vital Signs: Last Vital Signs Temp 97.6 F 11/08/22 07:36 Pulse 81 11/08/22 07:36 Resp 18 11/08/22 07:36 BP 132/67 11/08/22 07:36 Pulse Ox 95 11/08/22 07:36 O2 Del Method 11/08/22 07:36 BMI result Body Mass Index 27.1 Appearing in no acute distress lung sounds are clear to auscultation heart regular rate rhythm, clear S1, S2 positive bowel sounds, abdomen is soft, nontender neuro patient is alert x3, no focal deficits Objective Data Active Medications Al Hydroxide/Mg Hydroxide (Magnesium Hydrox/Alum Hydrox 30 Ml Oral.Susp) 5 ml PO TID [facility] Last Admin: 11/07/22 21:39 Dose: 5 ml Documented By: JAY Albuterol Sulfate (Albuterol Sulfate (0.042%) 1.25 Mg/3 Ml Vial.Neb) 0.63 mg INHALE QID PRN PRN Reason: shortness of breath or wheezing Atorvastatin Calcium (Atorvastatin Calcium 10 Mg Tablet) 10 mg PO BEDTIME [facility] Last Admin: 11/07/22 21:36 Dose: 10 mg Documented By: JAY Capsaicin (Capsaicin 0.025% Cream 60 Gm Tube) 1 appl TOPICAL BID [facility]; Protocol Last Admin: 11/07/22 22:03 Dose: Not Given Documented By: JAY Non-Admin Reason: Patient Refused Cyclobenzaprine HCl (Cyclobenzaprine Hcl 5 Mg Tablet) 5 mg PO BID [facility] Last Admin: 11/07/22 21:36 Dose: 5 mg Documented By: JAY Duloxetine HCl (Duloxetine Hcl 20 Mg Capsule.) 20 mg PO DAILY [facility] Last Admin: 11/07/22 09:20 Dose: Not Given Documented By: DESI Non-Admin Reason: Patient Refused Enoxaparin Sodium (Enoxaparin Sodium 40 Mg/0.4 Ml Syringe) 40 mg SUBCUT Q24H [facility] Last Admin: 11/08/22 02:51 Dose: 40 mg Documented By: JAY Promethazine HCl 12.5 mg/ (Sodium Chloride) 50.5 mls @ 202 mls/hr IV Q6H PRN PRN Reason: N/V refractory to Zofran Last Infusion: 11/05/22 02:06 Dose: 0 mls/hr Documented By: LIZ Ketorolac Tromethamine (Ketorolac Tromethamine 15 Mg/Ml Vial) 15 mg IVPUSH Q6H PRN PRN Reason: Pain, Mild (Pain Scale 1-3) Last Admin: 11/06/22 21:47 Dose: 15 mg Documented By: JAY Lidocaine (Lidocaine 4 % Patch Adh..Patch) 1 patch TRANSDERMA DAILY [facility] Last Admin: 11/07/22 09:20 Dose: Not Given Documented By: DESI Non-Admin Reason: Patient Refused Lisinopril (Lisinopril 5 Mg Tablet) 5 mg PO DAILY [facility]; Protocol Last Admin: 11/07/22 09:17 Dose: Not Given Documented By: DESI Non-Admin Reason: bp low Lorazepam (Lorazepam 0.5 Mg Tablet) 0.5 mg PO DAILY PRN PRN Reason: Anxiety Last Admin: 11/07/22 00:29 Dose: 0.5 mg Documented By: JAY Lorazepam (Lorazepam 1 Mg Tablet) 2 mg PO BEDTIME PRN PRN Reason: insomnia Last Admin: 11/07/22 21:35 Dose: 1 mg Documented By: JAY Meclizine HCl (Meclizine Hcl 25 Mg Tablet) 50 mg PO TID [facility] Last Admin: 11/07/22 21:38 Dose: 50 mg Documented By: JAY Montelukast Sodium (Montelukast Sodium 10 Mg Tablet) 10 mg PO BEDTIME [facility] Last Admin: 11/07/22 21:36 Dose: 10 mg Documented By: JAY Omeprazole (Omeprazole 20 Mg Capsule.Dr) 20 mg PO DAILY@0630 [facility] Last Admin: 11/07/22 05:55 Dose: Not Given Documented By: JAY Non-Admin Reason: Patient Asleep Ondansetron HCl (Ondansetron Hcl 4 Mg/2 Ml Vial) 4 mg IVPUSH Q4H PRN PRN Reason: Nausea and Vomiting Last Admin: 11/08/22 03:07 Dose: 4 mg Documented By: JAY Pharmacy Consult (Consult Rx Perform Med Rec) 1 each MISCELLANE ONCE PRN PRN Reason: Consult order Polyethylene Glycol (Polyethylene Glycol 3350 17 Gm Powd.Pack) 17 gm PO DAILY [facility] Last Admin: 11/07/22 09:19 Dose: 17 gm Documented By: DESI Prednisone (Prednisone 10 Mg Tablet) 10 mg PO DAILY [facility] Stop: 11/08/22 23:59 Rifampin (Rifampin 300 Mg Capsule) 300 mg PO BID [facility] Last Admin: 11/07/22 21:35 Dose: 300 mg Documented By: JAY Senna/Docusate Sodium (Sennosides/Docusate Sodium Tablet) 2 tab PO BID [facility] Last Admin: 11/07/22 22:03 Dose: Not Given Documented By: JAY Non-Admin Reason: Patient Refused Sodium Chloride (0.9 % Sodium Chloride Flush 3 Ml Syringe) 3 ml IVFLUSH QSHIFT [facility] Last Admin: 11/08/22 02:51 Dose: 3 ml Documented By: JAY Temazepam (Temazepam 15 Mg Capsule) 30 mg PO BEDTIME [facility] Last Admin: 11/07/22 21:33 Dose: 30 mg Documented By: JAY Labs 11/02/22 21:10 11/03/22 05:58 Assessment and Plan (1) Vertigo: Status: Acute Plan 67yo F with LTBI on RIF, HTN, HLD, fibromyalgia, RA, MATTHEW, prior hx vertigo presenting with acute vertigo Acute vertigo, likely vestibular neuritis standing meclizine increased to 50mg TID for 3 days, will stop at this point as it doesn't seem to be helping continue prn ondansetron + promethazine; IV fluids Neuro consulted, MRI negative on 11/04/22 high dose prednisone taper for 10 days But she has adamantly declined taking high doses therefore will revert back to her home dose of 10 mg daily Patient was able to sit up in bed with assistance and has some dizziness but seemed to equal off, plan is to get her OOB to chair, slowly PT perfomed Semont maeuver with good effect but patient stated still feeling dizzy continue supportive care Left shoulder pain kpad and lidocaine patch (refused patch due to intolerance to cold) continue toradol Headache Left side Likely MSK from shoulder pain symptom management insomnia has has benzo, remeron and melatonin ordered with no relief she reports this as chronic RA/fibromyalgia on prednisone 10 mg/d but increasing dose for vestibular neuritis as above intolerance to cold MATTHEW continue lorazepam, cyclobenzaprine, duloxetine HTN continue lisinopril Latent TB hx continue Rifampin VTE ppx: LMWH Attending Dr. Martin osorio: will likely need vestibular rehab In my clinical judgment, the patient requires continued inpatient hospitalization for the following reasons: acute vertigo, unable to ambulate, disposition pending, IV fluids Time Spent With Patient Time: Total time managing care of this patient today ____ minutes. Quality Stroke Does the patient have a stroke diagnosis?: No VTE Prior VTE?: No VTE Risk Level:: Medical - moderate - high VTE Device Contraindication: Treatment Not Indicated VTE Drug Contraindication: N/A - Med Ordered
[2022-11-08] MEDS: Magnesium Hydrox/Alum Hydrox 30 ML ORAL.SUSP 5 ML PO ×3 (09:07→21:38)
[2022-11-08] MEDS: predniSONE 10 MG TABLET PO (09:09)
[2022-11-08] MEDS: lisinopriL 5 MG TABLET PO (09:09)
[2022-11-08] MEDS: Meclizine HCl 25 MG TABLET 50 MG PO ×3 (09:09→21:40)
[2022-11-08] MEDS: Cyclobenzaprine HCl 5 MG TABLET PO ×2 (09:09→21:39)
[2022-11-08] MEDS: rifAMPin 300 MG CAPSULE PO ×2 (09:10→21:40)
[2022-11-08] MEDS: Omeprazole 20 MG CAPSULE.DR PO (09:10)
[2022-11-08] MEDS: Sennosides/Docusate Sodium TABLET 2 TAB PO (09:10)
[2022-11-08] MEDS: polyethylene glycoL 3350 17 GM POWD.PACK PO (09:11)
[2022-11-08 10:55] VITALS: BP 111/53; PULSE 81; RESP 18; TEMP 37.1; O2SAT 96
[2022-11-08 15:39] VITALS: BP 130/70; PULSE 80; RESP 18; TEMP 36.9; O2SAT 97
[2022-11-08 19:08] VITALS: BP 98/64; PULSE 88; RESP 18; TEMP 36.7; O2SAT 98
[2022-11-08] MEDS: Montelukast Sodium 10 MG TABLET PO (21:40)
[2022-11-08] MEDS: Atorvastatin Calcium 10 MG TABLET PO (21:40)
[2022-11-08] MEDS: LORazepam 1 MG TABLET 2 MG PO (22:49)
[2022-11-08 23:52] VITALS: BP 114/67; PULSE 86; RESP 14; TEMP 36.3; O2SAT 95
[2022-11-09 03:13] VITALS: BP 90/54; PULSE 96; RESP 16; TEMP 36.4; O2SAT 97
[2022-11-09] MEDS: Omeprazole 20 MG CAPSULE.DR PO (06:30)
[2022-11-09 08:00] VITALS: BP 133/62; PULSE 84; RESP 20; TEMP 36.1; O2SAT 97
[2022-11-09] MEDS: lisinopriL 5 MG TABLET PO (09:01)
[2022-11-09] MEDS: 0.9 % Sodium Chloride Flush 3 ML SYRINGE IVFLUSH (09:02)
[2022-11-09] MEDS: Magnesium Hydrox/Alum Hydrox 30 ML ORAL.SUSP 5 ML PO ×2 (09:03→20:21)
[2022-11-09] MEDS: rifAMPin 300 MG CAPSULE PO ×2 (09:04→20:22)
[2022-11-09] MEDS: Capsaicin 0.025% Cream 60 GM TUBE 1 APPL TOPICAL (09:12)
--- NOTE | 2022-11-09 11:51 | MHC.CM.PN ---
Addendum entered by Ruby Butt 11/09/22 16:02: No Insurance authorization received today per [facility] Original Note: Per MD rounds discharge today. A bed offer from [facility] has been accepted by the Pt. The facility is going for insurance authorization.
[2022-11-09 12:00] VITALS: BP 131/68; PULSE 80; RESP 20; TEMP 37; O2SAT 98
[2022-11-09] MEDS: ondansetron HCL 4 MG/2 ML VIAL IVPUSH (12:29)
[2022-11-09 12:53] LABS: COVID-19 Test Negative (Negative); IDNOW Serial# 55D5AD1C
--- NOTE | 2022-11-09 14:26 | PM.DS ---
DS: Providers Provider Date of Service: 11/09/22 Date of admission: 11/03/22 02:36 Primary care physician: Federico Yates MD Consults: 11/03/22 11:47 Consult to Neurology Routine Consulting Provider: [facility] Reason for consultation: acute vertigo ?migraineous? Attending physician on discharge: Len Sanderson Discharging clinician: Katharina Carrion DS: Diagnosis Discharge Diagnosis (1) Vertigo: Status: Acute DS: Summary Hospital Course Hospital Course: HP as per admitting provider this is a 67-year-old female with pertinent history of latent TB on rifampicin, essential hypertension, fibromyalgia, history of vertigo, generalized anxiety disorder who presents to the emergency department for evaluation of vertigo and nausea.? Patient states she had sudden onset of vertigo about 3 hours prior to arrival.? States it has been persistent and associated with nausea and multiple episodes of nonbloody emesis.? Patient states she is unable to ambulate due to the same and is occasionally falling to 1 side.? Also has had intermittent confusion.? Patient states she has history of vertigo and the last time she had this severe vertigo was when she had stroke about 3 years ago.? Complains of generalized weakness, no focal deficits.? No urine deficits or fever, chills, tinnitus, chest discomfort, palpitations, shortness of breath, abdominal pain or changes in urinary or bowel habits. In the emergency department, CT head negative but patient unable to ambulate due to vertigo and hence hospitalist team was consulted for admission . Acute vertigo, Secondary to vestibular neuritis. Treated with meclizine 50 mg t.i.d. for 3 days , Zofran, promethazine and IV fluids. High-dose prednisone started on 11/04/2022 for 10 day taper but patient adamantly declined, change back to patient's regular 10 mg daily that she uses for rheumatoid arthritis. MRI was negative for any acute abnormality or stroke. Her symptoms have improved significantly in regards to her dizziness, the nausea has essentially disappeared but occasionally comes and goes. She has been out of bed to the chair and the bathroom. PT perfomed Semont maeuver with good effect . She will require vestibular rehab. She can continue meclizine as needed. Left shoulder pain that radiates to left side of head. Pain on palpation to back/left shoulder area. Decline lidocaine patch due to intolerance to cold, treated with Toradol as needed. Symptom management essentially insomnia. Patient reports chronic has been given benzodiazepines, Remeron and melatonin without much relief. She should follow-up with her primary care provider as outpatient for this. RA/fibromyalgia . On chronic prednisone 10 mg daily. Severe intolerance to cold. MATTHEW. continue lorazepam, cyclobenzaprine, duloxetine HTN. continue lisinopril Latent TB hx. continue Rifampin Time Spent with Patient Time attestation: Total time managing care of this patient today ____ minutes. Discharge coordination time: Greater than 30 minutes Quality: Safe Use of Opioids Does Pt have an Active Cancer Diagnosis on the Problem List?: No Quality: Stroke Does the patient have a stroke diagnosis?: No Physical Exam Vital Signs: Vital Signs: Last Vital Signs Temp 98.6 F 11/09/22 12:00 Pulse 80 11/09/22 12:00 Resp 20 11/09/22 12:00 BP 131/68 11/09/22 12:00 Pulse Ox 98 11/09/22 12:00 O2 Del Method 11/09/22 12:00 BMI result Body Mass Index 27.1 Appearing in no acute distress head is normocephalic atraumatic eyes pupils are PERRLA sclera is anicteric mouth throat mucous membranes are intact and moist neck is supple no lymphadenopathy, no JVD noted lung sounds are clear to auscultation heart regular rate rhythm, clear S1, S2 positive bowel sounds, abdomen is soft, nontender neuro patient is alert x3, no focal deficits DS: Data Data Completed and Pending Labs on day of discharge: Laboratory Results - last 24 hr 11/09/22 12:20 COVID-19 ([facility]) Negative COVID-19 Clin Com See Note Discharge Plan Discharge Anticipated Discharge Date/Time: 11/09/22 14:31 Patient Disposition: Xfer Inpatient Rehab Fac Discharge Diagnosis: vertigo- vestibular neuritis Referrals: [facility] [Outside] - 1 Week Federico Yates MD [Primary Care Provider] - 1 Week Discharge Medications: New meclizine 25 mg tablet 25 mg PO TID PRN (Reason: dizziness) Qty: 20 0RF Continued (DME) nebulizer and compressor [Comp-Air Nebulizer Compressor] Device See Rx Instructions .Route Qty: 1 0RF Rx Instructions: As directed (DME) Blood pressure monitor See Rx Instructions .Route .MEDSUPPLY Qty: 1 0RF Rx Instructions: As directed lisinopril 5 mg tablet 5 mg PO DAILY 90 Days Qty: 90 1RF albuterol sulfate 0.63 mg/3 mL solution for nebulization 0.63 mg inhalation QID PRN (Reason: shortness of breath or wheezing) 90 Days Qty: 75 2RF duloxetine 20 mg capsule,delayed release(DR/EC) 20 mg PO DAILY 30 Days Qty: 30 3RF cyclobenzaprine 5 mg tablet 5 mg PO BID 30 Days Qty: 60 2RF montelukast 10 mg tablet 10 mg PO DAILY Qty: 28 0RF lorazepam 0.5 mg tablet 1 tab PO DAILY PRN (Reason: Anxiety) lorazepam 1 mg tablet 2 tab PO BEDTIME pantoprazole 40 mg tablet,delayed release (DR/EC) 40 mg PO DAILY@0630 simvastatin 20 mg tablet 20 mg PO BEDTIME rifampin 300 mg capsule 1 cap PO BID prednisone 10 mg tablet 1 tab PO DAILY capsaicin 0.025 % cream 1 appl topical BID Rx Instructions: apply to arms, back, legs, affected areas alum-mag hydroxide-simeth [Almacone-2] 400-400-40 mg/5 mL suspension 5 ml PO TID 30 Days Qty: 450 1RF Discharge Orders: Discharge Order (Routine); Ordered 11/09/22 Ordered By: Katharina Carrion Diet: Advance to usual diet Activity on Discharge: As tolerated Stand Alone Forms: Patient Portal Discharge page Activity Restrictions/Additional Instructions: Rest at home Take medication for anxiety as prescribed by your PCP Meclizine for dizziness Follow with PCP Care Plan Goals: complete resolution of symptoms Health Concerns: vertigo -vestibular neuritis Plan of Treatment: Follow-up with primary care provider as needed for discharge from rehab Take all medications as prescribed Assessment: See discharge summary Patient Instructions: Benign Paroxysmal Positional Vertigo (ED)
[2022-11-09 15:25] VITALS: BP 126/60; PULSE 83; RESP 18; TEMP 37; O2SAT 96
--- NOTE | 2022-11-09 15:29 | PC.NURSE ---
Addendum entered by Miriam Ocasio RN 11/10/22 14:50: pt was approved with authorization to be discharged today [facility] report called about and given to RN on unit. EMS to transport. Safety precautions remain in place. Addendum entered by Miriam Ocasio RN 11/09/22 16:31: This RN was notified at 1602 the pt did not receive authorization from facility, discharge postponed until tomorrow. Original Note: report received from overnight RN, medical receptionist biller per DEC, pt refusing certain medications - educated on importance of med compliance. Pt assisted OOB to chair, c/o slight dizziness. Pt due to discharge today, IV removed. EMS to transport. Call [facility] within reach, saftey precautions taken. called report to receiving facility
--- NOTE | 2022-11-09 16:02 | P.PNIM_ITS ---
Subjective Subjective Date of Service: 11/09/22 Interval History: nausea improved c/o ongoing severe vertigo oob to ambulate Review of Systems Review of Systems: Yes all other systems are reviewed and are negative Physical Exam Vital Signs: Vital Signs: Last Vital Signs Temp 98.6 F 11/09/22 15:25 Pulse 83 11/09/22 15:25 Resp 18 11/09/22 15:25 BP 126/60 11/09/22 15:25 Pulse Ox 96 11/09/22 15:25 O2 Del Method 11/09/22 15:25 BMI result Body Mass Index 27.1 Appearing in no acute distress lung sounds are clear to auscultation heart regular rate rhythm, clear S1, S2 positive bowel sounds, abdomen is soft, nontender neuro patient is alert x3, no focal deficits Objective Data Active Medications Al Hydroxide/Mg Hydroxide (Magnesium Hydrox/Alum Hydrox 30 Ml Oral.Susp) 5 ml PO TID [facility] Last Admin: 11/09/22 14:51 Dose: Not Given Documented By: DEBBIE Non-Admin Reason: Patient Refused Albuterol Sulfate (Albuterol Sulfate (0.042%) 1.25 Mg/3 Ml Vial.Ezra) 0.63 mg INHALE QID PRN PRN Reason: shortness of breath or wheezing Atorvastatin Calcium (Atorvastatin Calcium 10 Mg Tablet) 10 mg PO BEDTIME [facility] Last Admin: 11/08/22 21:40 Dose: 10 mg Documented By: MICAH Capsaicin (Capsaicin 0.025% Cream 60 Gm Tube) 1 appl TOPICAL BID [facility]; Protocol Last Admin: 11/09/22 09:12 Dose: 1 appl Documented By: DEBBIE Cyclobenzaprine HCl (Cyclobenzaprine Hcl 5 Mg Tablet) 5 mg PO BID [facility] Last Admin: 11/09/22 09:02 Dose: Not Given Documented By: DEBBIE Non-Admin Reason: Patient Refused Duloxetine HCl (Duloxetine Hcl 20 Mg Capsule.) 20 mg PO DAILY [facility] Last Admin: 11/09/22 09:03 Dose: Not Given Documented By: DEBBIE Non-Admin Reason: Patient Refused Enoxaparin Sodium (Enoxaparin Sodium 40 Mg/0.4 Ml Syringe) 40 mg SUBCUT Q24H [facility] Last Admin: 11/08/22 22:49 Dose: Not Given Documented By: HO.ANTOIC Non-Admin Reason: Patient Refused Promethazine HCl 12.5 mg/ (Sodium Chloride) 50.5 mls @ 202 mls/hr IV Q6H PRN PRN Reason: N/V refractory to Zofran Last Infusion: 11/05/22 02:06 Dose: 0 mls/hr Documented By: LIZ Ketorolac Tromethamine (Ketorolac Tromethamine 15 Mg/Ml Vial) 15 mg IVPUSH Q6H PRN PRN Reason: Pain, Mild (Pain Scale 1-3) Last Admin: 11/06/22 21:47 Dose: 15 mg Documented By: JAY Lidocaine (Lidocaine 4 % Patch Adh..Patch) 1 patch TRANSDERMA DAILY [facility] Last Admin: 11/09/22 09:03 Dose: Not Given Documented By: DEBBIE Non-Admin Reason: Patient Refused Lisinopril (Lisinopril 5 Mg Tablet) 5 mg PO DAILY [facility]; Protocol Last Admin: 11/09/22 09:01 Dose: 5 mg Documented By: DEBBIE Lorazepam (Lorazepam 1 Mg Tablet) 2 mg PO BEDTIME PRN PRN Reason: insomnia Last Admin: 11/08/22 22:49 Dose: 2 mg Documented By: ANTMACEY Montelukast Sodium (Montelukast Sodium 10 Mg Tablet) 10 mg PO BEDTIME [facility] Last Admin: 11/08/22 21:40 Dose: 10 mg Documented By: ANTMACEY Omeprazole (Omeprazole 20 Mg Capsule.Dr) 20 mg PO DAILY@0630 [facility] Last Admin: 11/09/22 06:30 Dose: 20 mg Documented By: ANTMACEY Ondansetron HCl (Ondansetron Hcl 4 Mg/2 Ml Vial) 4 mg IVPUSH Q4H PRN PRN Reason: Nausea and Vomiting Last Admin: 11/09/22 12:29 Dose: 4 mg Documented By: DEBBIE Pharmacy Consult (Consult Rx Perform Med Rec) 1 each MISCELLANE ONCE PRN PRN Reason: Consult order Polyethylene Glycol (Polyethylene Glycol 3350 17 Gm Powd.Pack) 17 gm PO DAILY [facility] Last Admin: 11/09/22 09:04 Dose: Not Given Documented By: DEBBIE Non-Admin Reason: Patient Refused Rifampin (Rifampin 300 Mg Capsule) 300 mg PO BID [facility] Last Admin: 11/09/22 09:04 Dose: 300 mg Documented By: DEBBIE Senna/Docusate Sodium (Sennosides/Docusate Sodium Tablet) 2 tab PO BID [facility] Last Admin: 11/09/22 09:04 Dose: Not Given Documented By: DEBBIE Non-Admin Reason: Patient Refused Sodium Chloride (0.9 % Sodium Chloride Flush 3 Ml Syringe) 3 ml IVFLUSH QSHIFT [facility] Last Admin: 11/09/22 14:51 Dose: Not Given Documented By: DEBBIE Non-Admin Reason: no access - discharge Temazepam (Temazepam 15 Mg Capsule) 30 mg PO BEDTIME [facility] Last Admin: 11/08/22 21:40 Dose: Not Given Documented By: ANTMACEY Non-Admin Reason: Patient Refused Labs 11/02/22 21:10 11/03/22 05:58 Labs: Laboratory Results - last 24 hr 11/09/22 12:20 COVID-19 ([facility]) Negative COVID-19 Clin Com See Note Assessment and Plan (1) Vertigo: Status: Acute Plan 67yo F with LTBI on RIF, HTN, HLD, fibromyalgia, RA, MATTHEW, prior hx vertigo presenting with acute vertigo Acute vertigo, likely vestibular neuritis standing meclizine increased to 50mg TID for 3 days, will stop at this point as it doesn't seem to be helping continue prn ondansetron + promethazine; IV fluids Neuro consulted, MRI negative on 11/04/22 high dose prednisone taper for 10 days But she has adamantly declined taking high doses therefore will revert back to her home dose of 10 mg daily Patient was able to sit up in bed with assistance and has some dizziness but seemed to equal off, plan is to get her OOB to chair, ambulate in room [facility] but patient stated still feeling dizzy continue supportive care Left shoulder pain kpad and lidocaine patch (refused patch due to intolerance to cold) continue toradol Headache Left side Likely MSK from shoulder pain symptom management insomnia has has benzo, remeron and melatonin ordered with no relief she reports this as chronic RA/fibromyalgia on prednisone 10 mg/d but increasing dose for vestibular neuritis as above intolerance to cold MATTHEW continue lorazepam, cyclobenzaprine, duloxetine HTN continue lisinopril Latent TB hx continue Rifampin VTE ppx: LMWH Attending Dr. Sanderson dispo: will likely need vestibular rehab tomorrow In my clinical judgment, the patient requires continued inpatient hospitalization for the following reasons: acute vertigo, unable to ambulate, disposition pending, IV fluids Time Spent With Patient Time: Total time managing care of this patient today ____ minutes. Quality Stroke Does the patient have a stroke diagnosis?: No VTE Prior VTE?: No VTE Risk Level:: Medical - moderate - high VTE Device Contraindication: Treatment Not Indicated VTE Drug Contraindication: N/A - Med Ordered
[2022-11-09 19:17] VITALS: BP 120/56; PULSE 89; RESP 18; TEMP 37.1; O2SAT 98
[2022-11-09] MEDS: Cyclobenzaprine HCl 5 MG TABLET PO (20:22)
[2022-11-09] MEDS: Atorvastatin Calcium 10 MG TABLET PO (20:22)
[2022-11-09] MEDS: Montelukast Sodium 10 MG TABLET PO (20:22)
[2022-11-09 23:35] VITALS: BP 137/61; PULSE 85; RESP 16; TEMP 36.8; O2SAT 97
[2022-11-10 01:13] LABS: Glucose, Whole Blood 180 mg/dL (60-115)
[2022-11-10] MEDS: LORazepam 1 MG TABLET 2 MG PO (01:52)
[2022-11-10] MEDS: Enoxaparin Sodium 40 MG/0.4 ML SYRINGE SUBCUT (01:55)
[2022-11-10] MEDS: traMADoL HCL 50 MG TABLET PO (02:16)
[2022-11-10 03:18] VITALS: BP 145/70; PULSE 82; RESP 20; TEMP 37.2; O2SAT 98
--- NOTE | 2022-11-10 04:37 | PC.NURSE ---
Pt c/o vertigo symptoms, says she's very dizzy and has a headache. She asked to check her blood sugar despite her not being a diabetic. She says she occasionally checks it at home despite not being a diabetic. Pt is very anxious. MD notified. BG done and was 180. Pt says she thinks she has diabetes and wants a workup. She says she is always thirsty and peeing alot. MD notified and ordered A1C for am. MD ordered tramadol ramandeep for pain. PRN ativan given for anxiety.
[2022-11-10] MEDS: Omeprazole 20 MG CAPSULE.DR PO (05:33)
[2022-11-10 07:06] VITALS: BP 133/58; PULSE 88; RESP 20; TEMP 36.8; O2SAT 99
[2022-11-10 09:05] LABS: Estimated Average Glucose 128 mg/dL; Hemoglobin A1c % 6.1 %
[2022-11-10] MEDS: Capsaicin 0.025% Cream 60 GM TUBE 1 APPL TOPICAL (09:12)
[2022-11-10] MEDS: rifAMPin 300 MG CAPSULE PO (09:13)
[2022-11-10] MEDS: lisinopriL 5 MG TABLET PO (09:14)
[2022-11-10] MEDS: Magnesium Hydrox/Alum Hydrox 30 ML ORAL.SUSP 5 ML PO (09:15)
[2022-11-10] MEDS: Cyclobenzaprine HCl 5 MG TABLET PO (09:15)
--- NOTE | 2022-11-10 10:45 | MHC.CM.PN ---
Addendum entered by Ruby Butt 11/10/22 13:58: The CXR completed, and sent to the [facility].The facility has received authorization. Transport has been booked for 4pm today. All dc info has been sent to the facility.. Original Note: [facility] via BLS pending authorization. The facility has requested a CXR. An order for a CXR has been requested. DC pending CXR and insurance authorization.
[2022-11-10 11:09] VITALS: BP 118/56; PULSE 87; RESP 20; TEMP 36.9; O2SAT 94
[2022-11-10] MEDS: ondansetron HCL 4 MG/2 ML VIAL IVPUSH (11:27)
== END 2022-11-10 16:11 ==
LOC: HO.ED 11-03 02:08 → HO.EDOVER 11-03 02:42 → HO.IMC 11-04 08:29
PROVIDERS: Family Medicine; Internal Medicine; Admitting Provider Student in an Organized Health Care Education/Training Program; Emergency Provider Internal Medicine; PCP Internal Medicine; Visit Provider Nurse Practitioner Acute Care
DX: H81.10 Benign paroxysmal vertigo, unspecified ear (principal); H81.20 Vestibular neuronitis, unspecified ear; F51.04 Psychophysiologic insomnia; M79.7 Fibromyalgia; F41.1 Generalized anxiety disorder; I10 Essential (primary) hypertension; Z22.7 Latent tuberculosis; R11.2 Nausea with vomiting, unspecified; R53.1 Weakness; R51.9 Headache, unspecified; Z79.899 Other long term (current) drug therapy; Z79.02 Long term (current) use of antithrombotics/antiplatelets; Z79.52 Long term (current) use of systemic steroids; Z20.822 Contact with and (suspected) exposure to COVID-19
CPT/HCPCS: 36415; 70450; 70551; 71045; 80053; 82947; 83036; 83690; 85025; 87635; 95992; 96361; 96365; 96372; 96375; 96376; 97116; 97162; 99222; 99285; J1650; J1885; J2060; J2270; J2405; J2550

== ENCOUNTER → 2022-11-16 09:37 | Outpatient (BNVA) | payer OTHER, SELFPAY | PROVIDERS: PCP Internal Medicine; Visit Provider Internal Medicine | DX: M19.021 Primary osteoarthritis, right elbow (principal); M79.7 Fibromyalgia | CPT/HCPCS: 20553; 20605 ==

== ENCOUNTER 2023-05-07 12:49 | Outpatient (REF) | payer OTHER, SELFPAY ==
[2023-05-07 16:36] LABS: Estimated Average Glucose 117 mg/dL; Hemoglobin A1c % 5.7 %
[2023-05-07 16:53] LABS: Alanine Aminotransferase 6 U/L (0-31); Albumin Level 4.1 g/dL (3.5-5.0); Alkaline Phosphatase 100 U/L (39-117); Anion Gap 11 (12-20); Aspartate Amino Transferase 17 U/L (5-31); Bilirubin Total 0.8 mg/dL (0.0-1.0); Blood Urea Nitrogen 16 mg/dL (9-16); Calcium 9.8 mg/dL (8.4-10.2); Carbon Dioxide 25 mmol/L (22-29); Chloride 105 mmol/L (96-108); Estimated Glomerular Filt Rate > 60; Glucose Random 109 mg/dL (60-115); Potassium 3.7 mmol/L (3.3-5.1); Sodium 137 mmol/L (135-145); Total Protein 7.3 g/dL (6.5-8.0)
[2023-05-07 17:08] LABS: Hematocrit 41.6 % (37.0-47.0); Hemoglobin 13.5 g/dl (12.0-16.0)
[2023-05-07 17:09] LABS: TSH reflex Free T4 1.45 uIU/mL (0.32-4.0)
[2023-05-07 17:16] LABS: Creatinine Urine 85.01 mg/dL; Microalbum/Creatinine Ratio Ur 9.4 ug/mg cr
[2023-05-09 10:58] LABS: LDL Cholesterol Direct 136 mg/dL (<100)
== END 2023-05-07 12:50 | disposition home or self-care (01) ==
LOC: HO.HMGCLDS 12:49
PROVIDERS: PCP Internal Medicine; Visit Provider Internal Medicine
DX: I10 Essential (primary) hypertension (principal); F33.9 Major depressive disorder, recurrent, unspecified; R73.9 Hyperglycemia, unspecified
CPT/HCPCS: 36415; 80053; 82043; 83036; 83721; 84443; 85014; 85018

== ENCOUNTER 2023-06-11 08:53 | Outpatient (AMB) | payer OTHER, SELFPAY ==
[2023-06-11 08:56] VITALS: BP 136/68; PULSE 86; O2SAT 97; BMI 33.4
--- NOTE | 2023-06-11 08:56 | A.OFFPC_ITS ---
Vital Signs 06/11/23 08:56 Height 5 ft 3 in Weight 188 lb 6 oz BMI 33.4 BP 136/68 Blood Pressure Location Rt brachial Position Sitting Pulse 86 Pulse Source Pulse Oximeter Pulse Oximetry (%) 97 Oxygen Delivery Method Room Air Intake Visit Reasons: both hands and finger unable to move Allergies acetaminophen [From Tylenol] Allergy (Verified 06/11/23 08:57) Shortness of Breath Medication List - Last Reconciled 06/11/23 by Federico Yates MD [adult diapers medium Use for incontinence episodes at night.] albuterol sulfate 0.63 mg (3 mL) inhalation QID PRN 90 days alum-mag hydroxide-simeth 400-400-40 mg/5 mL (Almacone-2) 5 mL PO TID 30 days [Blood pressure monitor As directed] capsaicin 0.025% 1 appl topical DAILY cyclobenzaprine 5 mg PO BID PRN 90 days disposable gloves As directed duloxetine 20 mg PO DAILY 30 days lisinopril 5 mg PO DAILY 90 days meclizine 25 mg PO TID PRN montelukast 10 mg PO DAILY nebulizer and compressor (Comp-Air Nebulizer Compressor) As directed pantoprazole 40 mg PO DAILY@0630 prednisone 1 tab PO DAILY [showering chairs As directed] simvastatin 20 mg PO BEDTIME walker As directed Tobacco use date assessed: 06/11/23 Fall risk assessment: No Falls in past year Last assessed Fall Risk: 06/11/23 Dental Screening Dental Screen Date: 06/11/23 Did you have a dental visit in the last 12 months?: No Did you have a dental problem in the last 6 months where you did not have access to dental care?: No Was dental information given to patient?: No HPI both hands and finger unable to move HPI Details Patient is a 67-year-old female came in today for a follow-up appointment, speaks Yi information taken with the help of her daughter She has a history of latent TB has taken rifampin, she has hypertension, fibromyalgia, history of vertigo, generalized anxiety disorder and major depression, currently seeing psychiatrist Her psychiatrist has recommended that she sees neurologist for the workup of dementia, referral placed Chronic vertigo: patient had an MRI done and has seen a neurologist. In December when she was in hospital for vertigo MRI was negative, she was given meclizine 50 mg t.i.d. for 3 days which was not helping her. In the hospital Multiple joint pain which is chronic for the patient Recurrent headaches also chronic Generalized anxiety disorder and major depression managed by psychiatry She is taking cyclobenzaprine 5 mg b.i.d. 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 Hernandez, is her traffic line painter Patient is requesting a refill of Zyrtec for allergies which I have sent for her, she is already on montelukast Chronic GERD managed with pantoprazole Lipid disorder managed with simvastatin 20 mg Patient is incontinent of urine and stool off and on when she has loose motions She has gained a lot of weight she was 160 lb in October and now it is 188 lb, patient was notified of that, she quickly said I know and moved on to her next problem Notified patient that due to her multiple medical problems it is very important that I talked to her every 3 month so I can stay up-to-date and helper for the. She said it is difficult for her to come to office so we will set up a telemedicine visits for the patient. She came here today with the help of a walker And is wearing multiple layers of clothing as she continued to feel cold which is a chronic problem for the patient as well TSH is normal it has been checked. Last set of lab was in April of this year COUNTS INCLUDE 234 BEDS AT THE [facility] Medical History Anxiety Arthritis Asthma Chronic pain syndrome Cough Fibromyalgia Fibromyalgia HTN (hypertension) Latent tuberculosis Myofascial muscle pain Osteoarthritis Sleep disorder breathing Family History Other Mental health disorder Social History Household Members: None Housing: Apartment Do you presently have visiting nurse or other home services: No Alcohol intake: never Patient Tobacco Use Status: Never used Tobacco e-Cigarette/Vaping Use: Never Used Advance Directives Date on File: 02/26/22 service: No Current occupational status: unemployed Cognitive needs: No Hearing needs: No Vision needs: No Questionnaire PHQ-9 Over the last 2 weeks, how often have you been bothered by any of the following problems? 1. Little interest or pleasure in doing things: nearly every day 2. Feeling down, depressed, or hopeless: nearly every day 3. Trouble falling or staying asleep, or sleeping too much: nearly every day 4. Feeling tired or having little energy: nearly every day 5. Poor appetite or overeating: nearly every day 6. Feeling bad about yourself - or that you are a failure or have let yourself or your family down: more than half the days 7. Trouble concentrating on things, such as reading the newspaper or watching television: more than half the days 8. Moving or speaking so slowly that other people could have noticed. Or the opposite - being so fidgety or restless that you have been moving around a lot more than usual: nearly every day 9. Thoughts that you would be better off or of hurting yourself in some way: nearly every day Total score: 25 Depression Screening Interpretation: Positive [id number] - PHQ-9 Billing: Yes Source: Developed by Drs. Bj Ingram, Dexter Ayala and colleagues, with an educational jesus from [employer]. Thrive Questionnaire Date Thrive assessed: 11/18/21 AUDIT C Alcohol Use Questionnaire (AUDIT-C) 1. How often do you have a drink containing alcohol?: Never 3. How often do you have six or more drinks on one occasion?: Never Total Score: 0 Score Reviewed/Action Taken: Yes MATTHEW-7 AMB Questionnaire MATTHEW-7 Date MATTHEW - 7 assessed: 11/18/21 Source: Developed by Drs. Bj Ingram, Dexter Ayala and colleagues, with an educational jesus from [employer]. Review of Systems Const Denies chills and Denies fever(s) ENT Denies epistaxis and Denies nasal discharge Card Denies chest pain Resp Denies chest congestion, Denies cough and Denies hemoptysis Skin/Breast Denies rash Neuro Reports no additional complaints Psych Reports no additional complaints Endo Reports no additional complaints Physical exam (Primary Care) Vital Signs: Last Vital Signs Pulse 86 06/11/23 08:56 BP 136/68 06/11/23 08:56 Pulse Ox 97 06/11/23 08:56 Oxygen Delivery Method Room Air 06/11/23 08:56 BMI result Body Mass Index 33.4 Tobacco/Smoking Status: Tobacco use Status Tobacco use date assessed 06/11/23 06/11/23 08:59 Patient Tobacco Use Status Never used Tobacco 06/11/23 08:59 e-Cigarette/Vaping Use Never Used 06/11/23 08:59 PHQ-9: PHQ-9 Score PHQ-9: Total score 06/11/23 09:27 Depression Screening Interpretation: Positive Thrive Assessment: Date of Thrive Assessment Date Thrive assessed 11/18/21 06/11/23 08:59 Const Other: Exam was difficult as patient is not willing to take off the layers of clothing she is wearing General: cooperative, comfortable and no acute distress Orientation/consciousness: patient oriented x3 HENMT Head: Yes normocephalic Eyes General: appearance normal, both eyes and all related structures Neck Neck: Yes supple Resp Effort & Inspection: normal respiratory effort, no cough and no stridor Cardio Rhythm: regular rhythm Heart sounds: S1 normal heart sound present and S2 normal heart sound present Skin General skin exam: turgor normal Neuro General: patient oriented x3, tone normal and moves all extremities Extrem Right lower extremity: no edema Left lower extremity: no edema Assessment and Plan Assessment & Plan (1) Rheumatoid arthritis: Code(s): M06.9 - Rheumatoid arthritis, unspecified Qualifiers: Rheumatoid arthritis location: multiple sites Rheumatoid factor presence: unspecified presence Qualified Code(s): M06.9 - Rheumatoid arthritis, unspecified (2) Major depression, recurrent: Code(s): F33.9 - Major depressive disorder, recurrent, unspecified Qualifiers: Active/Remission status: currently active Major depression episode severity: moderate Qualified Code(s): F33.1 - Major depressive disorder, recurrent, moderate (3) Myofascial muscle pain: Code(s): M79.18 - Myalgia, other site (4) Hypertension, essential: Code(s): I10 - Essential (primary) hypertension (5) Muscle spasm: Code(s): M62.838 - Other muscle spasm (6) Benign paroxysmal positional vertigo: Code(s): H81.10 - Benign paroxysmal vertigo, unspecified ear Qualifiers: Laterality: bilateral Qualified Code(s): H81.13 - Benign paroxysmal vertigo, bilateral (7) Fibromyalgia: Code(s): M79.7 - Fibromyalgia (8) Memory impairment of gradual onset: Code(s): R41.3 - Other amnesia (9) Urine incontinence: Code(s): R32 - Unspecified urinary incontinence Qualifiers: Urinary Incontinence type: mixed stress and urge incontinence Qualified Code(s): N39.46 - Mixed incontinence (10) Bowel incontinence: Code(s): R15.9 - Full incontinence of feces Qualifiers: Fecal incontinence type: fecal urgency Qualified Code(s): R15.9 - Full incontinence of feces; R15.2 - Fecal urgency (11) Environmental allergies: Code(s): Z91.09 - Other allergy status, other than to drugs and biological substances (12) Obesity due to excess calories: Code(s): E66.09 - Other obesity due to excess calories Qualifiers: Body mass index: BMI 33.0-33.9 Obesity classification: adult class 1 (BMI 30 - 34.9) Serious obesity comorbidity presence: with serious comorbidity Qualified Code(s): E66.09 - Other obesity due to excess calories; Z68.33 - Body mass index [BMI] 33.0-33.9, adult Plan Patient is a 67-year-old female came in today for a follow-up appointment, speaks Yi information taken with the help of her daughter She has a history of latent TB has taken rifampin, she has hypertension, fibromyalgia, history of vertigo, generalized anxiety disorder and major depression, currently seeing psychiatrist Her psychiatrist has recommended that she sees neurologist for the workup of dementia, referral placed Chronic vertigo: patient had an MRI done and has seen a neurologist. In December when she was in hospital for vertigo MRI was negative, she was given meclizine 50 mg t.i.d. for 3 days which was not helping her. In the hospital Multiple joint pain which is chronic for the patient Recurrent headaches also chronic Generalized anxiety disorder and major depression managed by psychiatry She is taking cyclobenzaprine 5 mg b.i.d. 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 Hernandez, is her traffic line painter Patient is requesting a refill of Zyrtec for allergies which I have sent for her, she is already on montelukast Chronic GERD managed with pantoprazole Lipid disorder managed with simvastatin 20 mg Patient is incontinent of urine and stool off and on when she has loose motions She has gained a lot of weight she was 160 lb in October and now it is 188 lb, patient was notified of that, she quickly said I know and moved on to her next problem Notified patient that due to her multiple medical problems it is very important that I talked to her every 3 month so I can stay up-to-date and helper for the. She said it is difficult for her to come to office so we will set up a telemedicine visits for the patient. She came here today with the help of a walker And is wearing multiple layers of clothing as she continued to feel cold which is a chronic problem for the patient as well TSH is normal it has been checked. Last set of lab was in April of this year Orders: Referrals Neurology Referral R41.3 - Other amnesia Medications: New cetirizine (Zyrtec) 10 mg PO DAILY 90 tabs 1RF Allergy 90 days Changed From cyclobenzaprine 5 mg PO ONCE 30 days PRN 30 tabs 2RF muscle spasm To cyclobenzaprine 5 mg PO BID PRN 180 tabs 1RF muscle spasm 90 days Coding Level of Care Code Est Pt Level 5 (22791) Diagnoses Rheumatoid arthritis M06.9 Rheumatoid arthritis location: multiple sites Rheumatoid factor presence: unspecified presence Major depression, recurrent F33.1 Active/Remission status: currently active Major depression episode severity: moderate Myofascial muscle pain M79.18 Hypertension, essential I10 Muscle spasm M62.838 Benign paroxysmal positional vertigo H81.13 Laterality: bilateral Fibromyalgia M79.7 Memory impairment of gradual onset R41.3 Urine incontinence N39.46 Urinary Incontinence type: mixed stress and urge incontinence Bowel incontinence R15.9; R15.2 Fecal incontinence type: fecal urgency Environmental allergies Z91.09 Obesity due to excess calories E66.09; Z68.33 Body mass index: BMI 33.0-33.9 Obesity classification: adult class 1 (BMI 30 - 34.9) Serious obesity comorbidity presence: with serious comorbidity Time Spent (min) 46 Comment 10 preparation, 21 with patient, 15 coordination of care/charting
== END 2023-06-11 09:55 | disposition home or self-care (01) ==
PROVIDERS: PCP Internal Medicine; Visit Provider Internal Medicine
DX: I10 Essential (primary) hypertension (principal); M06.9 Rheumatoid arthritis, unspecified; F33.1 Major depressive disorder, recurrent, moderate; Z91.09 Other allergy status, other than to drugs and biological substances; Z68.33 Body mass index [BMI] 33.0-33.9, adult; E66.09 Other obesity due to excess calories; M79.18 Myalgia, other site; M62.838 Other muscle spasm; H81.13 Benign paroxysmal vertigo, bilateral; M79.7 Fibromyalgia; N39.46 Mixed incontinence; R41.3 Other amnesia
CPT/HCPCS: 99215

== ENCOUNTER 2023-06-14 09:43 | Outpatient (AMB) | payer OTHER, SELFPAY ==
--- NOTE | 2023-06-14 09:51 | A.OFFVIS_ITS ---
Intake Vital Signs 06/14/23 10:00 Height 5 ft 3 in Weight 187 lb BMI 33.1 BP 108/72 Blood Pressure Location Lt brachial Position Sitting Pulse 84 Pulse Source Pulse Oximeter Pulse Oximetry (%) 97 Oxygen Delivery Method Room Air Intake Visit Reasons: INP-Amnesia - Confirmed Intake Note: NPV Amnesia Simulation Technician Required: No Allergies ibuprofen Allergy (Severe, Verified 06/14/23 09:54) shortness of breath acetaminophen [From Tylenol] Allergy (Verified 06/14/23 09:54) Shortness of Breath can food Allergy (Intermediate, Uncoded 06/14/23 09:54) shortness of breath HPI HPI Comments History of Present Illness Details 67 y/o female patient with HTN presents for new in-person visit for cognitive decline. Pt is poor historian, and confused. Pt is unable to give correct information about her medical hx, family or living situation. Pt stating that her daughter brought her to this appointment but later she stating that she does not have a daughter. Pt reports cognitive decline, difficulty remembering, losing and miss placing things and being confused, even in familiar place. She thinks her cognitive decline started after she had Covid vaccine, she can't remember when she had a Covid vaccine. Pt had CT and MRI of head and the result was no acute infarct, mass lesion, intracranial hemorrhage or evidence of hydrocephalus. She doesn't remember what medication she takes, and stating that she keeps forgetting to take medications. Pt reports that she has difficulty sleeping. Pt stating that she tried some medication but it made her staying awake all night and stopped taking it. She thinks that it is ambien. Pt reports that she had a sleep study but can't remember the result. [facility] Medical History (Updated 06/16/23 @ 15:08 by Dave Kumar CNP) Anxiety Arthritis Asthma Chronic pain syndrome Cough Fibromyalgia Fibromyalgia HTN (hypertension) Latent tuberculosis Myofascial muscle pain Osteoarthritis Sleep disorder breathing Surgical History (Updated 06/14/23 @ 09:58 by Isadora Bolaños CMA) H/O Spinal surgery Family History (Updated 06/14/23 @ 10:00 by Isadora Bolaños CMA) Father Diabetes Mother Acute arthritis Other Mental health disorder Social History (Updated 06/14/23 @ 10:00 by Isadora Bolaños CMA) Household Members: None Housing: Apartment Do you presently have visiting nurse or other home services: No Alcohol intake: never Patient Tobacco Use Status: Never used Tobacco e-Cigarette/Vaping Use: Never Used Advance Directives Date on File: 02/26/22 service: No Current occupational status: unemployed Cognitive needs: No Hearing needs: No Vision needs: No Review of Systems Const All systems reviewed & are unremarkable except as noted in HPI and below ENT Reports Normal hearing present Neuro Reports Normal hearing present and Reports confusion Psych Reports confusion Physical Exam Vital Signs: Last Vital Signs Pulse 84 06/14/23 10:00 BP 108/72 06/14/23 10:00 Pulse Ox 97 06/14/23 10:00 Oxygen Delivery Method Room Air 06/14/23 10:00 BMI result Body Mass Index 33.1 Const Other: Pt thinks that it is winter and wearing 3 winter jackets. General: cooperative and confusion Nutritional Appearance: obese Orientation/consciousness: confusion Limitations: ambulation with cane Neck Neck: Yes full ROM and Yes supple Neuro General: confusion Cranial nerves: Yes Bilaterally intact EOM present, Yes Normal facial strength present, Yes Midline tongue present, Yes Symmetric palate elevation present, Yes Normal hearing present, Yes Ability to bilaterally rotate head present and Yes Ability to bilaterally elevate shoulders present Motor exam (neuro): 5/5 motor strength present throughout, Pronator motor function not present and no tremor noted Psych Speech and movement: Clear speech present Attitude: cooperative Orientation Where are we (state) (county) (town or city) (hospital) (floor)?: state, county and hospital/clinic Registration Name of 3 unrelated objects clearly and slowly, then ask patient to repeat all 3 of them. (1st repeat determines score. Make sure they can repeat all three): object 1, object 2 and object 3 Recall Ask patient to repeat the 3 items from question #3.: object 1 Language Ask the patient to repeat the phrase 'No ifs, ands, or buts' after you.: incorrect Ask the patient to 'take a piece of paper with their right hand' 'fold paper in half' 'place paper on floor': place paper on floor Score Score: 8 Assessment & Plan Assessment & Plan (1) Dementia: Comment: Advanced. MMSE 06/16 Code(s): F03.90 - Unspecified dementia, unspecified severity, without behavioral disturbance, psychotic disturbance, mood disturbance, and anxiety (2) Memory impairment of gradual onset: Code(s): R41.3 - Other amnesia Plan Advised patient to start memantine 5 mg daily. Advised patient to come with her family members or care givers at the next appointment. Medications: New memantine 5 mg PO QAM 30 days 30 tabs 2RF Coding Level of Care Code New Pt Level 4 (17462) Diagnoses Dementia F03.90 Memory impairment of gradual onset R41.3
[2023-06-14 10:00] VITALS: BP 108/72; PULSE 84; O2SAT 97; BMI 33.1
== END 2023-06-14 10:45 | disposition home or self-care (01) ==
PROVIDERS: PCP Internal Medicine; Visit Provider Nurse Practitioner Family
DX: F03.90 Unspecified dementia, unspecified severity, without behavioral disturbance, psychotic disturbance, mood disturbance, and anxiety (principal); R41.3 Other amnesia
CPT/HCPCS: 99204

== ENCOUNTER → 2023-06-14 09:43 | Outpatient (BNVA) | payer OTHER, SELFPAY | PROVIDERS: PCP Internal Medicine; Visit Provider Nurse Practitioner Family | DX: F03.90 Unspecified dementia, unspecified severity, without behavioral disturbance, psychotic disturbance, mood disturbance, and anxiety (principal); R41.3 Other amnesia | CPT/HCPCS: 99202 ==

== ENCOUNTER 2023-06-30 08:14 | Outpatient (AMB) | payer OTHER, SELFPAY ==
--- NOTE | 2023-06-30 08:21 | MHC.OFFVIS ---
Intake Intake Visit Reasons: [employer]- pain in fingers in both hands Intake Note: This is a 67 year old female who presents for pain in both of her hands and fingers. She reports that the pain started more than 6 months ago. She mentions arthritis and fibromyalgia. Allergies ibuprofen Allergy (Severe, Verified 06/30/23 08:25) shortness of breath acetaminophen [From Tylenol] Allergy (Verified 06/30/23 08:25) Shortness of Breath can food Allergy (Intermediate, Uncoded 06/30/23 08:25) shortness of breath Medication List - Last Reconciled 06/30/23 by Kathy Adair RN [adult diapers medium Use for incontinence episodes at night.] albuterol sulfate 0.63 mg (3 mL) inhalation QID PRN 90 days alum-mag hydroxide-simeth 400-400-40 mg/5 mL (Almacone-2) 5 mL PO TID 30 days [Blood pressure monitor As directed] capsaicin 0.025% 1 appl topical DAILY cetirizine (Zyrtec) 10 mg PO DAILY 90 days cyclobenzaprine 5 mg PO BID PRN 90 days disposable gloves As directed duloxetine 20 mg PO DAILY 30 days lisinopril 5 mg PO DAILY 90 days memantine 5 mg PO QAM 30 days montelukast 10 mg PO DAILY nebulizer and compressor (Comp-Air Nebulizer Compressor) As directed pantoprazole 40 mg PO DAILY@0630 prednisone 1 tab PO DAILY prednisone 0 mg PO [showering chairs As directed] simvastatin 20 mg PO BEDTIME walker As directed HPI HPI Comments History of Present Illness Details History of fibromyalgia, rheumatoid arthritis, dementia. She wears a soft collar, says she had neck surgery 2004. She admits to memory impairments. Says she was referred by Dr. Queen. She shows me that she cannot flex/extend fingers, it clicks. no power Pain especially in the night. Feels very cold. Both hands get numbness, left worse than right. Treatment done so far: NSAIDs - tried wears a glove with open fingers, which helps her, but she only borrowed it from a friend therapy - only in the house, long time ago, does not have transportation to go to [facility] Medical History (Updated 06/30/23 @ 09:08 by Elizabeth Monique MD) Trigger finger Sleep disorder breathing Latent tuberculosis Cough Asthma Fibromyalgia Chronic pain syndrome Myofascial muscle pain Osteoarthritis Fibromyalgia HTN (hypertension) Anxiety Surgical History (Updated 06/14/23 @ 09:58 by Isadora Bolaños CMA) H/O Spinal surgery Family History (Updated 06/14/23 @ 10:00 by Isadora Bolaños CMA) Father Diabetes Mother Acute arthritis Other Mental health disorder Social History (Updated 06/14/23 @ 10:00 by Isadora Bolaños CMA) Household Members: None Housing: Apartment Do you presently have visiting nurse or other home services: No Alcohol intake: never Patient Tobacco Use Status: Never used Tobacco e-Cigarette/Vaping Use: Never Used Advance Directives Date on File: 02/26/22 service: No Current occupational status: unemployed Cognitive needs: No Hearing needs: No Vision needs: No Review of Systems Const All systems reviewed & are unremarkable except as noted in HPI and below Physical Exam Constitutional: Patient appears to be in no acute distress, well nourished and well developed. 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 Can flex and extend fingers. No joint swelling. Trigger finger on left 3rd and 4th digits and right 4th digit. No intrinsic hand weakness noted. No atrophy noted. Nelson test negative. Carpal compression test positive on left. Tinel sign negative. Cannot extend left 2nd toe. Neurological: Neurologic examination of the upper and lower extremities was nonfocal with intact sensation, muscle stretch reflexes and without focal motor deficits. A bit forgetful. Dunham?s negative bilaterally. Results Reviewed Results Reviewed: I reviewed records from the following: PCP Pain medicine-follows for elbow pain, arthritis, has done trigger point injections and elbow injections Neurology-recent diagnosis of dementia Assessment & Plan Assessment & Plan (1) Trigger finger: Code(s): M65.30 - Trigger finger, unspecified finger Qualifiers: Laterality: right Trigger finger location: ring finger Qualified Code(s): M65.341 - Trigger finger, right ring finger (2) Rheumatoid arthritis: Code(s): M06.9 - Rheumatoid arthritis, unspecified Qualifiers: Rheumatoid arthritis location: multiple sites Rheumatoid factor presence: unspecified presence Qualified Code(s): M06.9 - Rheumatoid arthritis, unspecified (3) Hand numbness: Code(s): R20.0 - Anesthesia of skin (4) Arthritis of joint of lesser toe, left: Code(s): M19.072 - Primary osteoarthritis, left ankle and foot Plan Trigger finger on left 3rd and 4th digits and right 4th digit. She wanted a fingerless glove similar to what she borrowed from her friend. We do not have such in the office, but she can try to get such [id number]. I advise trigger finger splints instead. We will do hand x-rays today to evaluate for arthritis. Unfortunately she cannot have transportation for physical therapy. Also complaining of numbness. Will order for EMG. She mentions and shows me weakness of extension of left toe. We will do left foot x-ray today as well. Assessment and plan discussed with patent, and patient was agreeable. All questions were answered thoroughly. Follow-up after EMG. Elizabeth Monique MD, GOLDY Board Certified, [place] Board of Physical Medicine and Rehabilitation (ABPMR) Board Certified, [place] Board of Electrodiagnostic Medicine (ABEM) Orders: Orders XR hand LT min 3V Today M06.9 - Rheumatoid arthritis, unspecified, M65.30 - Trigger finger, unspecified finger NE electromyogram (EMG) Today R20.0 - Anesthesia of skin NE nerve conduction velocity Today R20.0 - Anesthesia of skin XR hand RT min 3V Today M06.9 - Rheumatoid arthritis, unspecified, M65.30 - Trigger finger, unspecified finger XR foot LT 2V Today M19.072 - Primary osteoarthritis, left ankle and foot Coding Level of Care Code New Pt Level 4 (63392) Diagnoses Trigger ring finger of right hand M65.341 Laterality: right Trigger finger location: ring finger Rheumatoid arthritis involving multiple sites, unspecified whether rheumatoid factor present M06.9 Rheumatoid arthritis location: multiple sites Rheumatoid factor presence: unspecified presence Hand numbness R20.0 Arthritis of joint of lesser toe, left M19.072
== END 2023-06-30 09:39 | disposition home or self-care (01) ==
PROVIDERS: PCP Internal Medicine; Visit Provider Physical Medicine & Rehabilitation
DX: M65.341 Trigger finger, right ring finger (principal); M06.9 Rheumatoid arthritis, unspecified; R20.0 Anesthesia of skin; M19.072 Primary osteoarthritis, left ankle and foot; M65.332 Trigger finger, left middle finger; M65.342 Trigger finger, left ring finger
CPT/HCPCS: 99204

== ENCOUNTER 2023-06-30 08:14 | Outpatient (REF) | payer OTHER, SELFPAY ==
--- NOTE | ~2023-06-30 | XR_ITS ---
EXAMINATION: XR HAND, RIGHT CLINICAL INFORMATION: Trigger finger; history of rheumatoid arthritis. COMPARISON: None available. TECHNIQUE: PA, lateral, and oblique views of the right hand. FINDINGS: There is mild bony demineralization. There is a mild ulnar positive variance. There is moderate osteoarthritic change of the interphalangeal joint of the thumb. Mild osteoarthritic change is seen of the third and fifth distal interphalangeal joints and the second through fifth proximal interphalangeal joints. No fracture or dislocation is seen. The proximal and distal carpal rows are intact. There is no abnormal bone erosion. The ulnar styloid is intact. No focal soft tissue swelling, gas or foreign body is seen. XR/XR hand RT min 3V IMPRESSION: 1. There are multi-focal osteoarthritic changes of the left hand. 2. No fracture or dislocation is seen. 3. There is no abnormal bone erosion. EXAMINATION: XR HAND, LEFT CLINICAL INFORMATION: Trigger finger; history of rheumatoid arthritis. COMPARISON: None available. TECHNIQUE: PA, lateral, and oblique views of the left hand. FINDINGS: There is mild bony demineralization. There is a mild ulnar positive variance. There is very mild osteoarthritic change of the interphalangeal joint of the thumb and of second proximal interphalangeal joint. There is no fracture or dislocation. The proximal and distal carpal rows are intact. No abnormal bone erosion is seen. The ulnar styloid is intact. No focal soft tissue swelling, gas or foreign body. IMPRESSION: 1. There is very mild osteoarthritic change of the interphalangeal joint of the thumb and the second proximal interphalangeal joint. 2. No fracture or dislocation is seen. 3. There is no abnormal bone erosion.
--- NOTE | ~2023-06-30 | XR_ITS ---
EXAMINATION: XR FOOT, LEFT CLINICAL INFORMATION: Primary osteoarthritis; history of rheumatoid arthritis. COMPARISON: None available. TECHNIQUE: AP, lateral, and oblique views of the left foot. FINDINGS: Bony alignment is normal. There is very mild bony demineralization. There is a second hammertoe configuration. No fracture, dislocation or left ankle joint effusion is seen. Boehler's angle is normal. There is no calcaneal spur. There is a 1.9 x 1.4 cm exostosis is seen arising from the dorsal margin of the talus. No focal soft tissue swelling, gas or foreign body is seen. XR/XR foot LT 2V IMPRESSION: 1. No fracture or dislocation is seen. There is no left ankle joint effusion. 2. A left second hammertoe configuration is seen. 3. No abnormal bone erosion is seen. 4. A 1.9 x 1.4 cm exostosis arises from the dorsal margin of the talus. This could be further evaluated with MRI, if clinically indicated.
--- NOTE | ~2023-06-30 | XR_ITS ---
EXAMINATION: XR HAND, RIGHT CLINICAL INFORMATION: Trigger finger; history of rheumatoid arthritis. COMPARISON: None available. TECHNIQUE: PA, lateral, and oblique views of the right hand. FINDINGS: There is mild bony demineralization. There is a mild ulnar positive variance. There is moderate osteoarthritic change of the interphalangeal joint of the thumb. Mild osteoarthritic change is seen of the third and fifth distal interphalangeal joints and the second through fifth proximal interphalangeal joints. No fracture or dislocation is seen. The proximal and distal carpal rows are intact. There is no abnormal bone erosion. The ulnar styloid is intact. No focal soft tissue swelling, gas or foreign body is seen. XR/XR hand LT min 3V IMPRESSION: 1. There are multi-focal osteoarthritic changes of the left hand. 2. No fracture or dislocation is seen. 3. There is no abnormal bone erosion. EXAMINATION: XR HAND, LEFT CLINICAL INFORMATION: Trigger finger; history of rheumatoid arthritis. COMPARISON: None available. TECHNIQUE: PA, lateral, and oblique views of the left hand. FINDINGS: There is mild bony demineralization. There is a mild ulnar positive variance. There is very mild osteoarthritic change of the interphalangeal joint of the thumb and of second proximal interphalangeal joint. There is no fracture or dislocation. The proximal and distal carpal rows are intact. No abnormal bone erosion is seen. The ulnar styloid is intact. No focal soft tissue swelling, gas or foreign body. IMPRESSION: 1. There is very mild osteoarthritic change of the interphalangeal joint of the thumb and the second proximal interphalangeal joint. 2. No fracture or dislocation is seen. 3. There is no abnormal bone erosion.
== END 2023-06-30 08:15 | disposition home or self-care (01) ==
LOC: HO.HOSX 08:14
PROVIDERS: PCP Internal Medicine; Visit Provider Physical Medicine & Rehabilitation
DX: M06.9 Rheumatoid arthritis, unspecified (principal); M19.072 Primary osteoarthritis, left ankle and foot; M65.341 Trigger finger, right ring finger; R20.0 Anesthesia of skin
CPT/HCPCS: 73130; 73620

== ENCOUNTER 2023-07-22 08:15 | Outpatient (AMB) | payer OTHER, SELFPAY ==
--- OUTSIDE RECORDS SUMMARY | 2023-07-22 08:19 | XMS_ITS | Continuity of Care Document ---
Author Name Unknown Organization [facility] ter Address [address] [place] [id number]- Care Team Providers Care Per Diem Physical Therapist Assistant Name Role Phone Milan JOHNSON, Asma Primary Care Physician Encounter [facility] [place] Date(s): 05/19/23 - 05/19/[address] [address]- Discharge Disposition: A-D/C Home Attending Physician: Adrienne Rodriguez MD Admitting Physician: Adrienne Rodriguez MD Referring Physician: Not on Staff, Referring MD Allergies, Adverse Reactions, Alerts Substance Reaction Severity Status ibuprofen Shortness of breath Active Motrin 1 Anaphylaxis Active Tylenol Shortness of breath Anaphylaxis Persistent Severe Active 1Tolerates Meloxicam Immunizations Given and Recorded Vaccine Date Status Refusal Reason SARS-CoV-2 mRNA ([id number]) vax 04/22/22 Recorded SARS-CoV-2 mRNA (rlclwzf-plzz-ivoah) vax 03/23/22 Recorded pneumococcal 23-valent vaccine 02/27/19 Given tetanus/diphtheria/pertussis, acel(Tdap) 02/06/19 Given Medications Abdominal Binder Abdominal Binder, 1, Topically, Wednesday through Wednesday, # 1 each, Refills 0, Tot. 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, 08/08/20 16:56:00 EDT, Supply Start Date: 08/08/20 Status: Ordered albuterol 0.083% inhalation solution 3 mL, Inhalation, Every 6 hours, PRN NEEDED FOR WHEEZING, # 90 mL, 0 Refills, [facility] #[id number], 153, cm, 07/18/21 11:26:00 EDT, Height, 84, kg, 07/31/20 17:07:00 EDT, Dry Weight Start Date: 08/01/21 Status: Ordered albuterol-ipratropium 3 mg-0.5 mg/3 ml inhalation solution 3 mL, Neb, 4 times a day, PRN Wheezing/Shortness of Breath, for use with nebulizer, # 360 mL, 11 Refills, Maintenance, 07/18/21 11:54:00 EDT, Solution, [facility] #[id number], Partial fill upon patient request if the prescription is for a schedul... Start Date: 07/18/21 Status: Ordered Blood pressure cuff dxL malignant hypertension Blood pressure cuff dxL malignant hypertension, See Instructions, # 1 each, Refills 0, Tot. Refills0, Maintenance, Dx: hypertension, 11/19/20 15:25:00 EST, Supply Start Date: 11/19/20 Status: Ordered BP Monitor BP Monitor, See Instructions, # 1 each, Refills 0, Tot. Refills 0, Maintenance, dx: HTN (I10) on medication AWILDA 99, 11/29/20 15:54:00 EST, Supply, 153, cm, 11/26/20 14:10:00 EST, Height, 84, kg, 07/31/20 17:07:00 EDT, Dry Weight Start Date: 11/29/20 Status: Ordered capsaicin 0.025% topical cream 1 applicator, Topically, 3 times a day, PRN back pain, # 60 Gm, 11 Refills, Maintenance, 07/18/21 11:52:00 EDT, Cream, [facility] #[id number], 1 applicator Topically 3 times a day,PRN:back pain,153, cm, 07/18/21 11:26:00 EDT, Height, 84, kg, ... Start Date: 07/18/21 Status: Ordered cetirizine 10 mg oral capsule 1 capsule = 10 mg, By Mouth, Daily, PRN Itch, # 7 capsule, 0 Refills, Maintenance, 05/19/23 19:42:00 EDT, Capsule, [facility], Partial fill upon patient request if the prescription isfor a schedule II opioid drug., 156, cm, 05/19/23 19:05... Start Date: 05/19/23 Stop Date: 05/26/23 Status: Ordered cyclobenzaprine 5 mg oral tablet 1 tablet = 5 mg, By Mouth, 3 times a day, # 90 tablet, 0 Refills, Maintenance, 08/29/22 4:31:00 EST, Partial fill upon patient request if the prescription is for a schedule II opioid drug. Start Date: 08/29/22 Status: Ordered Cymbalta 20 mg oral enteric coated capsule 1 capsule = 20 mg, By Mouth, 2 times a day, # 60 capsule, 0 Refills, Maintenance, 08/04/21 9:55:00 EDT, EC Capsule, [facility] #[id number], Partial fill upon patient request if the prescription is for a schedule II opioid drug., 153, cm, 07/18/21... Start Date: 08/04/21 Status: Ordered gabapentin 300 mg oral capsule 300 mg, 1, capsule, By Mouth, Daily at bedtime, # 30 capsule, Refills 11, Tot. Refills 11, Maintenance, 07/18/21 12:00:00 EDT, Route to Pharmacy Electronically, [facility] #[id number], Partial fill upon patient request if the prescription is for... Start Date: 07/18/21 Status: Ordered lisinopril 5 mg oral tablet 1, tablet, By Mouth, 2 times a day, # 60 tablet, Refills 0, Route to Pharmacy Electronically, [facility] #[id number], 153, cm, 08/18/21 12:15:00 EDT, Height, 84, kg, 07/31/20 17:07:00 EDT, Dry Weight Start Date: 09/04/21 Status: Ordered LORazepam 1 mg oral tablet 1 tablet = 1 mg, By Mouth, Daily at bedtime, PRN as needed for anxiety, [facility] PRN anxiety, # 3 tablet, 0 Refills, Maintenance, 09/04/22 11:24:00 EST, Tablet, Partial fill upon patient request if the prescription is for a schedule II opioid drug. Start Date: 09/04/22 Status: Ordered lumbar back brace lumbar back brace, See Instructions, # 1 each, Refills 0, Tot. Refills 0, Maintenance, Dx: chronic lumbar back pain, 10/08/20 17:42:00 EST, Supply Start Date: 10/08/20 Status: Ordered montelukast 10 mg oral tablet 10 mg, 1, tablet, By Mouth, Daily at bedtime, COVERING FOR PCP, # 30 tablet, Refills 11, Tot. Refills 11, Maintenance, 07/18/21 11:56:00 EDT, Route to Pharmacy Electronically, [facility] #[id number], 153, cm, 07/18/21 11:26:00 EDT, Height, 84, kg... Start Date: 07/18/21 Status: Ordered multivitamin Multiple Vitamins oral capsule 1 capsule, By Mouth, Daily, # 30 capsule, 11 Refills, Maintenance, 08/14/21 18:41:00 EDT, Capsule, [facility] #[id number], 1 capsule By Mouth Daily, 153, cm, 07/18/21 11:26:00 EDT, Height, 84, kg, 07/31/20 17:07:00 EDT, Dry Weight Start Date: 08/14/21 Status: Ordered Nebulizer/Compressor See Instructions, # 1 each, Maintenance, with tubing and mask/supplies, 04/14/21 13:34:00 EDT, Supply, 153, cm, 03/18/21 8:44:00 EDT, Height, 84, kg, 07/31/20 17:07:00 EDT, Dry Weight Start Date: 04/14/21 Status: Ordered ondansetron 4 mg oral tablet 1 tablet = 4 mg, By Mouth, 2 times a day, PRN nausea, # 12 tablet, 0 Refills, Maintenance, 11/19/2114:33:00 EST, Tablet, [facility] #[id number], Partial fill upon patient request if the prescription is for a schedule II opioid drug., 153, cm, 01... Start Date: 11/19/20 Status: Ordered pantoprazole 40 mg oral delayed release tablet 1 tablet = 40 mg, By Mouth, Daily, # 30 tablet, 11 Refills, Maintenance, 07/18/21 11:56:00 EDT, EC Tablet, 153, cm, 07/18/21 11:26:00 EDT, Height, 84, kg, 07/31/20 17:07:00 EDT, Dry Weight Start Date: 07/18/21 Status: Ordered Pull up briefs/ diapers size 4x Pull up briefs/ diapers size 4x, See Instructions, # 450 each, Refills 11, Tot. Refills 11, Maintenance, size: 4x Dx: urinary incontinence, 10/26/20 10:32:00 EST, Supply Start Date: 10/26/20 Status: Ordered rifampin 300 mg oral capsule 2 capsule = 600 mg, By Mouth, Daily, # 60 capsule, 3 Refills, Maintenance, 08/04/22 14:29:00 [facility] upon patient request if the prescription is for a schedule II opioid drug., 153, cm, 07/07/22 10:34:00 EDT, Height Start Date: 08/04/22 Stop Date: 12/02/22 Status: Ordered Shower chair Shower chair, See Instructions, # 1 each, Refills 0, Tot. Refills 0, Maintenance, Dx: fall risk, history of falls AWILDA 99, 09/06/20 7:23:00 EST, Supply Start Date: 09/06/20 Status: Ordered simvastatin 20 mg oral tablet 20 mg, 1, tablet, By Mouth, Daily at bedtime, # 30 tablet, Refills 11, Tot. Refills 11, Maintenance, 07/18/21 11:52:00 EDT, Route to Pharmacy Electronically, [facility][id number], 153, cm, 07/18/21 11:26:00 EDT, Height, 84, kg, 07/31/20 17:07:0... Start Date: 07/18/21 Status: Ordered Soft cervical brace Soft cervical brace, See Instructions, # 1 each, Refills 0, Tot. Refills 0, Maintenance, Dx: cervicalgia, RA AWILDA 99, 05/09/20 17:16:00 EDT, Supply, Dry Weight Start Date: 05/09/20 Status: Ordered underpads for bed underpads for bed, See Instructions, # 90 each, Refills 0, Tot. Refills 0, Maintenance, Dx: urinaryincontinence, 09/09/20 12:21:00 EST, Supply Start Date: 09/09/20 Status: Ordered walker walker, See Instructions, # 1 units, Refills 0, Tot. Refills 0, Maintenance, Walker with Folding Wheels, Seat and Breaks Dx: frequent falls, 08/22/19 11:03:15 EST, Compound Start Date: 08/22/19 Status: Ordered Zoloft 50 mg oral tablet 1 tablet = 50 mg, By Mouth, Daily at bedtime, # 30 tablet, 11 Refills, Maintenance, 07/18/21 11:57:00 EDT, [facility] #[id number], 153, cm, 07/18/21 11:26:00 EDT, Height, 84, kg, 07/31/20 17:07:00 EDT, Dry Weight Start Date: 07/18/21 Status: Ordered Problem List Condition Confirmation Course Effective Dates Status H ealth Status Informant Anxiety Confirmed Active Asthma Confirmed Active Chronic post-traumatic stress disorder (PTSD) Confirmed Active Ovarian cyst Confirmed Active GERD (gastroesophageal reflux disease) Confirmed Active History of back surgery Confirmed Active H/O fibromyalgia Confirmed Active Rectocele Confirmed Active Hyperlipemia Confirmed Active Hypertension Confirmed Active Latent tuberculosis 1 Confirmed Active Uterovaginal prolapse, incomplete Confirmed Active Low back pain Confirmed Active Major depression Confirmed Active Cystocele, midline Confirmed Active Neck pain Confirmed Active Obese class I Confirmed Active Rheumatoid arthritis Confirmed Active Urethral hypermobility Confirmed Active 1Patient started 600mg Rifampin therapy on 08/12/22 and stopped on 12/13/22. Pt completed 4 months ofLTBI therapy. Vital Signs Most recent to oldest [Reference Range]: 1 2 3 Height 156 cm (05/19/23 7:05 PM) 156 cm (05/19/23 4:02 PM) Weight 73 kg (05/19/23 7:05 PM) Oxygen Saturation [94-100 %] 93 % *L* (05/19/23 7:59 PM) 96 % (05/19/23 4:02 PM) 99 % (05/19/23 3:56 PM) Pulse Rate [55-90 bpm] 77 bpm (05/19/23 7:59 PM) 97 bpm *H* (05/19/23 4:02 PM) 100 bpm *H* (05/19/23 3:56 PM) Blood Pressure [90-138/55-84 mm Hg] 144/73mm Hg *H* (05/19/23 7:59 PM) 129/53mm Hg (05/19/23 4:02 PM) Respiratory Rate [16-30 br/min] 18 br/min (05/19/23 7:59 PM) 16 br/min (05/19/23 4:02 PM) Temperature [96.8-100.4 DegF] 98.7 DegF (05/19/23 7:59 PM) 98.4 DegF (05/19/23 4:02 PM) Mode of Delivery (Oxygen) Room air (05/19/23 7:59 PM) Room air (05/19/23 4:02 PM) Room air (05/19/23 3:56 PM) Blood pressure sites Arm, left (05/19/23 7:59 PM) Arm, right (05/19/23 4:02 PM) Temperature Route Oral (05/19/23 7:59 PM) Oral (05/19/23 4:02 PM) Dry Weight 73 kg (05/19/23 7:05 PM) 73 kg (05/19/23 4:02 PM) Dry Weight Obtained Via Patient/family s tated (05/19/23 4:02 PM) Social History Social History Type Response Smoking Status Never (less than 100 in lifetime) entered on: 12/05/20 Sex Female Note * Adrienne Rodriguez MD: SIGN, PERFORM, SIGN, VERIFY Event Display: Patient Education Handout Authored Date: Patient Care team information Care Team Personnel Name: Christa Villalta Position: [facility] RN Member Role: Primary Care Nurse Name: Lori Toure RN Position: [facility] RN Member Role: Primary Care Nurse Name: Shelia Dallas RN Position: [facility] AMB Nurse Member Role: Primary Care Nurse Name: Federico Yates MD Position: [facility] Physician - Primary Care Member Role: PCP Address: Address: [facility] [place] [address]- Name: Sonya Harrell RN Position: [facility] RN Member Role: Primary Care [facility] Attending Position: [facility] ED Attendings Patient Name: Adrienne Rodriguez MD Position: [facility] ED Medicine MD Member Role: Admitting Physician Address: Address: [address] [place] [address] [place] [address]- [place] Name: Laura Nevarez RN Position: [facility] ED RN W/OE and Tasks Member Role: Patient Care Provider Name: Wendy Seo Position: [facility] ED TA [facility] Member Role: Sales Representative Health Insurance Care Team Related Persons Name: BRANDON GIL Address: [address] [place] [id number]
--- OUTSIDE RECORDS SUMMARY | 2023-07-22 08:25 | XMS_ITS | Continuity of Care Document ---
Author Name Unknown Organization [facility] Address [address] [place] [address]- Care Team Providers Care Tour Leader Name Role Phone Milan JOHNSON, Asma Primary Care Physician [phone] [facility] Date(s): 12/10/22 - 01/09/23 [facility] [address] [id number] Allergies, Adverse Reactions, Alerts Substance Reaction Severity Status ibuprofen Shortness of breath Active Motrin 1 Anaphylaxis Active Tylenol Shortness of breath Anaphylaxis Persistent Severe Active 1Tolerates Meloxicam Immunizations Given and Recorded Vaccine Date Status Refusal Reason SARS-CoV-2 mRNA ([id number]) vax 04/22/22 Recorded SARS-CoV-2 mRNA (kxzkrvq-fkeb-ekjgf) vax 03/23/22 Recorded pneumococcal 23-valent vaccine 02/27/19 Given tetanus/diphtheria/pertussis, acel(Tdap) 02/06/19 Given Medications Abdominal Binder Abdominal Binder, 1, Topically, Wednesday through Wednesday, # 1 each, Refills 0, Tot. 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, 08/08/20 16:56:00 EDT, Supply Start Date: 08/08/20 Status: Ordered albuterol 0.083% inhalation solution 3 mL, Inhalation, Every 6 hours, PRN NEEDED FOR WHEEZING, # 90 mL, 0 Refills, [facility] #[id number], 153, cm, 07/18/21 11:26:00 EDT, Height, 84, kg, 07/31/20 17:07:00 EDT, Dry Weight Start Date: 08/01/21 Status: Ordered albuterol-ipratropium 3 mg-0.5 mg/3 ml inhalation solution 3 mL, Neb, 4 times a day, PRN Wheezing/Shortness of Breath, for use with nebulizer, # 360 mL, 11 Refills, Maintenance, 07/18/21 11:54:00 EDT, Solution, [facility] #[id number], Partial fill upon patient request if the [...] 11 Refills, Maintenance, 07/18/21 11:52:00 EDT, Cream, [facility] #[id number], 1 applicator Topically 3 times a day,PRN:back pain,153, cm, 07/18/21 11:26:00 EDT, Height, 84, kg, ... Start Date: 07/18/21 Status: Ordered cyclobenzaprine 5 mg oral tablet [...] Refills, Maintenance, 08/04/21 9:55:00 EDT, EC Capsule, [facility] #[id number], Partial fill upon patient request if the prescription is for a schedule II opioid drug., 153, cm, 07/18/21... Start Date: 08/04/21 Status: Ordered gabapentin 300 mg oral capsule 300 mg, 1, capsule, By Mouth, Daily at bedtime, # 30 capsule, Refills 11, Tot. Refills 11, Maintenance, 07/18/21 12:00:00 EDT, Route to Pharmacy Electronically, [facility] #[id number], Partial fill upon patient request if the prescription is for... Start Date: 07/18/21 Status: Ordered lisinopril 5 mg oral tablet 1, tablet, By Mouth, 2 times a day, # 60 tablet, Refills 0, Route to Pharmacy Electronically, [facility] #[id number], 153, cm, 08/18/21 12:15:00 EDT, Height, 84, kg, 07/31/20 17:07:00 EDT, Dry Weight Start Date: 09/04/21 Status: Ordered LORazepam 1 mg oral tablet 1 tablet = 1 mg, By Mouth, Daily at bedtime, PRN as needed for anxiety, [facility] PRN anxiety, # 3 tablet, 0 Refills, [...] 07/18/21 11:56:00 EDT, Route to Pharmacy Electronically, [facility] #[id number], 153, cm, 07/18/21 11:26:00 EDT, Height, 84, kg... Start Date: 07/18/21 Status: Ordered multivitamin Multiple Vitamins oral capsule 1 capsule, By Mouth, Daily, # 30 capsule, 11 Refills, Maintenance, 08/14/21 18:41:00 EDT, Capsule, [facility] #[id number], 1 capsule By Mouth Daily, 153, cm, [...] tablet, 0 Refills, Maintenance, 11/19/2114:33:00 EST, Tablet, [facility] #[id number], Partial fill upon patient request if the [...] capsule, 3 Refills, Maintenance, 08/04/22 14:29:00 EDT, [facility], Partial fill upon patient request if the [...] 07/18/21 11:52:00 EDT, Route to Pharmacy Electronically, [facility] #[id number], 153, cm, 07/18/21 11:26:00 EDT, Height, 84, [...] tablet, 11 Refills, Maintenance, 07/18/21 11:57:00 EDT, [facility] #[id number], 153, cm, 07/18/21 11:26:00 EDT, Height, 84, [...] 12/13/22. Pt completed 4 months ofLTBI therapy. Social History Social History Type Response Smoking Status Never (less than 100 in lifetime) entered on: 12/05/20 Sex Female Patient Care team information Care Team Personnel Name: Christa Villalta Position: [facility] RN Member Role: Primary Care Nurse Name: Lori Toure RN Position: [facility] RN Member Role: Primary Care Nurse Name: Shelia Dallas RN Position: [facility] AMB Nurse Member Role: Primary Care Nurse Name: Federico Yates MD Position: [facility] Physician (General Medicine) Member Role: PCP Address: Address: [address] [place] [address]- Name: Sonya Harrell RN Position: [facility] RN Member Role: Primary Care Nurse Care Team Related Persons Name: BRANDON GIL Address: home [address] [place] [address]
--- NOTE | 2023-07-22 10:20 | MHC.PC.OV ---
Intake Visit Reasons: 6 Month Follow Up COPD [phone] Allergies ibuprofen Allergy (Severe, Verified 07/22/23 10:20) shortness of breath acetaminophen [From Tylenol] Allergy (Verified 07/22/23 10:20) Shortness of Breath can food Allergy (Intermediate, Uncoded 06/30/23 08:25) shortness of breath Medication List - Last Reconciled 07/22/23 by Federico Yates MD [adult diapers medium Use for incontinence episodes at night.] albuterol sulfate 0.63 mg (3 mL) inhalation QID PRN 90 days alum-mag hydroxide-simeth 400-400-40 mg/5 mL (Almacone-2) 5 mL PO TID 30 days [Blood pressure monitor As directed] capsaicin 0.025% 1 appl topical DAILY cetirizine (Zyrtec) 10 mg PO DAILY 90 days cyclobenzaprine 5 mg PO BID PRN 90 days disposable gloves As directed duloxetine 20 mg PO DAILY 30 days lisinopril 5 mg PO DAILY 90 days memantine 5 mg PO QAM 30 days montelukast 10 mg PO DAILY nebulizer and compressor (Comp-Air Nebulizer Compressor) As directed pantoprazole 40 mg PO DAILY@0630 prednisone 1 tab PO DAILY prednisone 0 mg PO [showering chairs As directed] simvastatin 20 mg PO BEDTIME walker As directed Tobacco use date assessed: 07/22/23 Fall risk assessment: 1 Fall in past year Last assessed Fall Risk: 07/22/23 Dental Screening Dental Screen Date: 07/22/23 Did you have a dental visit in the last 12 months?: Yes Did you have a dental problem in the last 6 months where you did not have access to dental care?: No Was dental information given to patient?: Patient has dentist HPI 6 Month Follow Up COPD [phone] HPI Details Each patient is 67-year-old female this is a telemedicine video conference Patient have rheumatoid arthritis causing pain in all her joints and body. 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 She is doing very well with muscle relaxers she just want to increase the dose to 10 mg she is taking cyclobenzaprine 2 times a day Patient says that she does not want a duloxetine anymore because she is doing well with the cyclobenzaprine and duloxetine is making her sad and depressed. She had labs done in April, we will do another set of lab in September. She has nurses come over to help her they can draw the blood for the patient. It is difficult for the patient to come to the clinic as she feels extreme cold and usually waiting for check it is even in summer. Patient recently had cold, she has recovered but still having coughing fits. She is requesting a script for benzonatate for night which I have sent for her Allergies are stable patient is on cetirizine and montelukast GERD is stable with pantoprazole. Follow-up 3 months [facility] Medical History Trigger finger Sleep disorder breathing Latent tuberculosis Cough Asthma Fibromyalgia Chronic pain syndrome Myofascial muscle pain Osteoarthritis Fibromyalgia HTN (hypertension) Anxiety Surgical History H/O Spinal surgery Family History Father Diabetes Mother Acute arthritis Other Mental health disorder Social History Household Members: None Housing: Apartment Do you presently have visiting nurse or other home services: No Alcohol intake: never Patient Tobacco Use Status: Never used Tobacco e-Cigarette/Vaping Use: Never Used Advance Directives Date on File: 02/26/22 service: No Current occupational status: unemployed Cognitive needs: No Hearing needs: No Vision needs: No Questionnaire PHQ-9 Over the last 2 weeks, how often have you been bothered by any of the following problems? [id number] - PHQ-9 Billing: Patient declined-do not bill Source: Developed by Drs. Bj Ingram, Yolanda Glass, Dexter Ferguson and colleagues, with an educational jesus from [employer]. Thrive Questionnaire Date Thrive assessed: 11/18/21 AUDIT C Alcohol Use Questionnaire (AUDIT-C) 1. How often do you have a drink containing alcohol?: Never 3. How often do you have six or more drinks on one occasion?: Never Total Score: 0 Score Reviewed/Action Taken: Yes MATTHEW-7 AMB Questionnaire MATTHEW-7 Date MATTHEW - 7 assessed: 11/18/21 Source: Developed by Drs. Bj Ingram, Yolanda Glass, Dexter Ferguson and colleagues, with an educational jesus from [employer]. Review of Systems Const Denies chills and Denies fever(s) ENT Denies epistaxis and Denies nasal discharge Card Denies chest pain Resp Denies chest congestion and Denies hemoptysis GI Denies diarrhea and Denies nausea Skin/Breast Denies rash Neuro Reports no additional complaints Psych Reports no additional complaints Endo Reports no additional complaints Physical exam (Primary Care) Tobacco/Smoking Status: Tobacco use Status Tobacco use date assessed 07/22/23 07/22/23 10:23 Patient Tobacco Use Status Never used Tobacco 07/22/23 10:23 e-Cigarette/Vaping Use Never Used 07/22/23 10:23 Thrive Assessment: Date of Thrive Assessment Date Thrive assessed 11/18/21 07/22/23 10:23 Telehealth Telehealth Location of provider rendering services: practice address Location of patient: address on file Patient Identification confirmed using: Name, : Yes Telehealth method: video Patient verbally consented to treatment: Yes Patient verbally consented to billing insurance company: Yes Patient informed of any privacy concerns related to visit: Yes Assessment and Plan Assessment & Plan (1) Rheumatoid arthritis: Code(s): M06.9 - Rheumatoid arthritis, unspecified Qualifiers: Rheumatoid arthritis location: multiple sites Rheumatoid factor presence: unspecified presence Qualified Code(s): M06.9 - Rheumatoid arthritis, unspecified (2) Myofascial muscle pain: Code(s): M79.18 - Myalgia, other site (3) Muscle spasm: Code(s): M62.838 - Other muscle spasm (4) Fibromyalgia: Code(s): M79.7 - Fibromyalgia (5) Urine incontinence: Code(s): R32 - Unspecified urinary incontinence Qualifiers: Urinary Incontinence type: mixed stress and urge incontinence Qualified Code(s): N39.46 - Mixed incontinence (6) Bowel incontinence: Code(s): R15.9 - Full incontinence of feces Qualifiers: Fecal incontinence type: fecal urgency Qualified Code(s): R15.9 - Full incontinence of feces; R15.2 - Fecal urgency (7) Environmental allergies: Code(s): Z91.09 - Other allergy status, other than to drugs and biological substances (8) Hypertension, essential: Code(s): I10 - Essential (primary) hypertension (9) Cough: Code(s): R05.9 - Cough, unspecified Qualifiers: Cough type: acute Qualified Code(s): R05.1 - Acute cough Plan Each patient is 67-year-old female this is a telemedicine video conference Patient have rheumatoid arthritis causing pain in all her joints and body. 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 She is doing very well with muscle relaxers she just want to increase the dose to 10 mg she is taking cyclobenzaprine 2 times a day Patient says that she does not want a duloxetine anymore because she is doing well with the cyclobenzaprine and duloxetine is making her sad and depressed. She had labs done in April, we will do another set of lab in September. She has nurses come over to help her they can draw the blood for the patient. Patient have chronic urinary and fecal incontinence recurrence. Had blood pressure is being monitored by the nursing staff patient is on lisinopril 5 mg. It is difficult for the patient to come to the clinic as she feels extreme cold and usually waiting for check it is even in summer. Patient recently had cold, she has recovered but still having coughing fits. She is requesting a script for benzonatate for night which I have sent for her Allergies are stable patient is on cetirizine and montelukast GERD is stable with pantoprazole. Follow-up 3 months Medications: New benzonatate 200 mg PO BID PRN 20 caps 0RF cough 10 days Changed From cyclobenzaprine 5 mg PO BID 90 days PRN 180 tabs 1RF muscle spasm To cyclobenzaprine 10 mg PO BID PRN 180 tabs 1RF muscle spasm 90 days On Hold duloxetine Hold Comment: Doctor's Order 20 mg PO DAILY 30 days 30 caps 3RF Coding Level of Care Code Tele Est Pt Level 4 (11449) Diagnoses Rheumatoid arthritis involving multiple sites, unspecified whether rheumatoid factor present M06.9 Rheumatoid arthritis location: multiple sites Rheumatoid factor presence: unspecified presence Myofascial muscle pain M79.18 Muscle spasm M62.838 Fibromyalgia M79.7 Mixed stress and urge urinary incontinence N39.46 Urinary Incontinence type: mixed stress and urge incontinence Incontinence of feces with fecal urgency R15.9; R15.2 Fecal incontinence type: fecal urgency Environmental allergies Z91.09 Hypertension, essential I10 Acute cough R05.1 Cough type: acute Time Spent (min) 30 Comment 5 prep, 17 with pt, 8 charting/ coordination of care
== END 2023-07-22 12:32 | disposition home or self-care (01) ==
LOC: HO.HMGC 08:15
PROVIDERS: PCP Internal Medicine; Visit Provider Internal Medicine
DX: M06.9 Rheumatoid arthritis, unspecified (principal); M62.838 Other muscle spasm; M79.7 Fibromyalgia; N39.46 Mixed incontinence; R15.9 Full incontinence of feces; R15.2 Fecal urgency; Z91.09 Other allergy status, other than to drugs and biological substances; I10 Essential (primary) hypertension; R05.1 Acute cough
CPT/HCPCS: 99214

== ENCOUNTER 2023-09-03 10:59 | Outpatient (AMB) | payer OTHER, SELFPAY ==
--- NOTE | 2023-09-03 10:58 | A.OFFPC_ITS ---
Intake Visit Reasons: bronchitis ~ Allergies ibuprofen Allergy (Severe, Verified 09/03/23 10:58) shortness of breath acetaminophen [From Tylenol] Allergy (Verified 09/03/23 10:58) Shortness of Breath can food Allergy (Intermediate, Uncoded 06/30/23 08:25) shortness of breath Medication List - Last Reconciled 09/03/23 by Federico Yates MD [adult diapers medium Use for incontinence episodes at night.] albuterol sulfate 0.63 mg (3 mL) inhalation QID PRN 90 days alum-mag hydroxide-simeth 400-400-40 mg/5 mL (Almacone-2) 5 mL PO TID 30 days benzonatate 200 mg PO BID PRN 10 days [Blood pressure monitor As directed] capsaicin 0.025% 1 appl topical DAILY cetirizine (Zyrtec) 10 mg PO DAILY 90 days cyclobenzaprine 10 mg PO BID PRN 90 days disposable gloves As directed duloxetine 20 mg PO DAILY 30 days lisinopril 5 mg PO DAILY 90 days memantine 5 mg PO QAM 30 days montelukast 10 mg PO DAILY nebulizer and compressor (Comp-Air Nebulizer Compressor) As directed pantoprazole 40 mg PO DAILY@0630 prednisone 1 tab PO DAILY prednisone 0 mg PO [showering chairs As directed] simvastatin 20 mg PO BEDTIME walker As directed Tobacco use date assessed: 09/03/23 Fall risk assessment: No Falls in past year Last assessed Fall Risk: 09/03/23 Dental Screening Dental Screen Date: 09/03/23 Did you have a dental visit in the last 12 months?: No Did you have a dental problem in the last 6 months where you did not have access to dental care?: No Was dental information given to patient?: No HPI bronchitis ~ HPI Details Patient is a 67-year-old female this is a telemedicine conference Patient states that she is feeling sick for the past 3 days with cough chest congestion and spitting out yellow phlegm She is complaining of mild use and chills. There is no chest pain but feeling shortness of breath as patient is asthmatic She is using [employer]raft machine which is helping her. I have sent azithromycin with prednisone 20 mg to be taken once a day for 5 days Patient is to hydrate well [facility] Medical History Trigger finger Sleep disorder breathing Latent tuberculosis Cough Asthma Fibromyalgia Chronic pain syndrome Myofascial muscle pain Osteoarthritis Fibromyalgia HTN (hypertension) Anxiety Surgical History H/O Spinal surgery Family History Father Diabetes Mother Acute arthritis Other Mental health disorder Social History Household Members: None Housing: Apartment Do you presently have visiting nurse or other home services: No Alcohol intake: never Patient Tobacco Use Status: Never used Tobacco e-Cigarette/Vaping Use: Never Used Advance Directives Date on File: 02/26/22 service: No Current occupational status: unemployed Cognitive needs: No Hearing needs: No Vision needs: No Questionnaire Thrive Questionnaire Date Thrive assessed: 11/18/21 AUDIT C Alcohol Use Questionnaire (AUDIT-C) 1. How often do you have a drink containing alcohol?: Never 3. How often do you have six or more drinks on one occasion?: Never Total Score: 0 Score Reviewed/Action Taken: Yes MATTHEW-7 AMB Questionnaire MATTHEW-7 Date MATTHEW - 7 assessed: 11/18/21 Source: Developed by Drs. Bj Ingram, Yolanda Glass, Dexter Ferguson and colleagues, with an educational jesus from [employer]. Review of Systems Const Denies chills ENT Denies epistaxis and Denies nasal discharge Card Denies chest pain Resp Denies hemoptysis GI Denies diarrhea and Denies nausea Skin/Breast Denies rash Neuro Reports no additional complaints Psych Reports no additional complaints Endo Reports no additional complaints Physical exam (Primary Care) Tobacco/Smoking Status: Tobacco use Status Tobacco use date assessed 09/03/23 09/03/23 10:58 Patient Tobacco Use Status Never used Tobacco 09/03/23 10:58 e-Cigarette/Vaping Use Never Used 09/03/23 10:58 Thrive Assessment: Date of Thrive Assessment Date Thrive assessed 11/18/21 09/03/23 10:58 Assessment and Plan Assessment & Plan (1) Respiratory tract congestion with cough: Code(s): R05.8 - Other specified cough (2) Asthma exacerbation: Code(s): J45.901 - Unspecified asthma with (acute) exacerbation Qualifiers: Asthma severity: moderate Asthma persistence: persistent Qualified Code(s): J45.41 - Moderate persistent asthma with (acute) exacerbation Plan Patient is a 67-year-old female this is a telemedicine conference Patient states that she is feeling sick for the past 3 days with cough chest congestion and spitting out yellow phlegm She is complaining of mild use and chills. There is no chest pain but feeling shortness of breath as patient is asthmatic She is using Car in the [employer] machine which is helping her. I have sent azithromycin with prednisone 20 mg to be taken once a day for 5 days Patient is to hydrate well Medications: New azithromycin Take 2 tablets today then 1 daily 250 mg PO ONCE 6 tabs 0RF 5 days J06.9 - Acute upper respiratory infection, unspecified prednisone 20 mg PO DAILY 5 tabs 0RF 5 days Coding Level of Care Code Tele Est Pt Level 3 (57254) Diagnoses Respiratory tract congestion with cough R05.8 Moderate persistent asthma with exacerbation J45.41 Asthma severity: moderate Asthma persistence: persistent
== END 2023-09-03 12:26 | disposition home or self-care (01) ==
LOC: HO.HMGC 10:59
PROVIDERS: PCP Internal Medicine; Visit Provider Internal Medicine
DX: R05.8 Other specified cough (principal); J45.41 Moderate persistent asthma with (acute) exacerbation
CPT/HCPCS: 99442

== ENCOUNTER 2023-09-14 13:59 | Outpatient (AMB) | payer OTHER, SELFPAY ==
--- NOTE | 2023-09-14 13:59 | MHC.PC.OV ---
Intake Visit Reasons: 3 month fu Allergies ibuprofen Allergy (Severe, Verified 09/14/23 14:10) shortness of breath acetaminophen [From Tylenol] Allergy (Verified 09/14/23 14:10) Shortness of Breath can food Allergy (Intermediate, Uncoded 06/30/23 08:25) shortness of breath Medication List - Last Reconciled 09/14/23 by Federico Yates MD [adult diapers medium Use for incontinence episodes at night.] albuterol sulfate 0.63 mg (3 mL) inhalation QID PRN 90 days alum-mag hydroxide-simeth 400-400-40 mg/5 mL (Almacone-2) 5 mL PO TID 30 days benzonatate 200 mg PO BID PRN 10 days [Blood pressure monitor As directed] capsaicin 0.025% 1 appl topical DAILY cetirizine (Zyrtec) 10 mg PO DAILY 90 days cyclobenzaprine 10 mg PO BID PRN 90 days disposable gloves As directed duloxetine 20 mg PO DAILY 30 days lisinopril 5 mg PO DAILY 90 days memantine 5 mg PO QAM 30 days montelukast 10 mg PO DAILY nebulizer and compressor (Comp-Air Nebulizer Compressor) As directed pantoprazole 40 mg PO DAILY@0630 prednisone 20 mg PO DAILY 5 days [showering chairs As directed] simvastatin 20 mg PO BEDTIME walker As directed Tobacco use date assessed: 09/03/23 HPI 3 month fu HPI Details Telemedicne visit Patient is better compare to early this month she took Z pack and prednison 20 mg now she only have dry cough and is requesting cough medicine and another course of prednisone, patient is asthmatic as well [facility] Medical History Trigger finger Sleep disorder breathing Latent tuberculosis Cough Asthma Fibromyalgia Chronic pain syndrome Myofascial muscle pain Osteoarthritis Fibromyalgia HTN (hypertension) Anxiety Surgical History H/O Spinal surgery Family History Father Diabetes Mother Acute arthritis Other Mental health disorder Social History Household Members: None Housing: Apartment Do you presently have visiting nurse or other home services: No Alcohol intake: never Comment: pt refusing alarms and camera Patient Tobacco Use Status: Never used Tobacco e-Cigarette/Vaping Use: Never Used Advance Directives Date on File: 02/26/22 service: No Current occupational status: unemployed Cognitive needs: No Hearing needs: No Vision needs: No Questionnaire Thrive Questionnaire Date Thrive assessed: 11/18/21 MATTHEW-7 AMB Questionnaire MATTHEW-7 Date MATTHEW - 7 assessed: 11/18/21 Source: Developed by Drs. Bj Ingram, Yolanda Glass, Dexter Ferguson and colleagues, with an educational jesus from [employer]. Review of Systems Const Denies chills ENT Denies epistaxis and Denies nasal discharge Card Denies chest pain Resp Denies hemoptysis GI Denies diarrhea and Denies nausea Skin/Breast Denies rash Neuro Reports no additional complaints Psych Reports no additional complaints Endo Reports no additional complaints Physical exam (Primary Care) Tobacco/Smoking Status: Tobacco use Status Tobacco use date assessed 09/03/23 09/14/23 14:01 Patient Tobacco Use Status Never used Tobacco 09/14/23 14:01 e-Cigarette/Vaping Use Never Used 09/14/23 14:01 Thrive Assessment: Date of Thrive Assessment Date Thrive assessed 11/18/21 09/14/23 14:01 Telehealth Telehealth Location of provider rendering services: practice address Location of patient: address on file Patient Identification confirmed using: Name, : Yes Telehealth method: video Patient verbally consented to treatment: Yes Patient verbally consented to billing insurance company: Yes Patient informed of any privacy concerns related to visit: Yes Minutes spent on Phone/Video with Pt.: 14 Assessment and Plan Assessment & Plan (1) Cough: Code(s): R05.9 - Cough, unspecified Qualifiers: Cough type: acute Qualified Code(s): R05.1 - Acute cough (2) Asthma exacerbation: Code(s): J45.901 - Unspecified asthma with (acute) exacerbation Qualifiers: Asthma persistence: persistent Asthma severity: moderate Qualified Code(s): J45.41 - Moderate persistent asthma with (acute) exacerbation Plan Telemedicne visit Patient is better compare to early this month she took Z pack and prednison 20 mg now she only have dry cough and is requesting cough medicine and another course of prednisone, patient is asthmatic as well Medications: Refilled benzonatate 200 mg PO BID 10 days PRN 20 caps 0RF cough prednisone 20 mg PO DAILY 5 tabs 0RF 5 days Coding Level of Care Code Tele Est Pt Level 3 (75234) Diagnoses Acute cough R05.1 Cough type: acute Moderate persistent asthma with exacerbation J45.41 Asthma persistence: persistent Asthma severity: moderate
== END 2023-09-14 15:58 | disposition home or self-care (01) ==
LOC: HO.HMGC 13:59
PROVIDERS: PCP Internal Medicine; Visit Provider Internal Medicine
DX: R05.1 Acute cough (principal); J45.41 Moderate persistent asthma with (acute) exacerbation
CPT/HCPCS: 99213

== ENCOUNTER 2023-10-26 15:33 | Outpatient (AMB) | payer OTHER, SELFPAY ==
--- NOTE | 2023-10-26 15:43 | MHC.OFFVIS ---
Intake Vital Signs 10/26/23 15:46 Height 5 ft 3 in Weight 197 lb 5.019 oz BMI 34.9 BP 118/68 Blood Pressure Location Lt radial Position Sitting Pulse 93 Pulse Source Pulse Oximeter Pulse Oximetry (%) 98 Oxygen Delivery Method Room Air Intake Visit Reasons: cough Roller Operator Required: No Allergies ibuprofen Allergy (Severe, Verified 10/26/23 15:55) shortness of breath acetaminophen [From Tylenol] Allergy (Verified 10/26/23 15:55) Shortness of Breath can food Allergy (Intermediate, Uncoded 10/26/23 15:55) shortness of breath Medication List - Last Reconciled 10/26/23 by Antonia Roach MD [adult diapers medium Use for incontinence episodes at night.] albuterol sulfate 0.63 mg (3 mL) inhalation QID PRN 90 days alum-mag hydroxide-simeth 400-400-40 mg/5 mL (Almacone-2) 5 mL PO TID 30 days benzonatate 200 mg PO BID PRN 10 days [Blood pressure monitor As directed] capsaicin 0.025% 1 appl topical DAILY cetirizine (Zyrtec) 10 mg PO DAILY 90 days cyclobenzaprine 10 mg PO BID PRN 90 days disposable gloves As directed duloxetine 20 mg PO DAILY 30 days lisinopril 5 mg PO DAILY 90 days memantine 5 mg PO QAM 30 days montelukast 10 mg PO DAILY nebulizer and compressor (Comp-Air Nebulizer Compressor) As directed pantoprazole 40 mg PO DAILY@0630 prednisone 20 mg PO DAILY 5 days [showering chairs As directed] simvastatin 20 mg PO BEDTIME walker As directed Do you need a note to return to daycare/school/sports/work: No HPI cough HPI Details This 68 years old female who regionally from [place], Coming to see me after about 2 years. There is some language problem and difficult to understand her completely. However she complains of increased chest congestion, and shortness of breath especially at nighttime. Recently has been treated with a course of prednisone and some antibiotic, the name of which she does not know. She say is that she is not able to use any inhalers. She has been using albuterol solution in the nebulizer, 3 to 4 times a day but it is not helping. This patient is grossly obese, 2 years ago a home sleep study was suggested but it was never done. She say is that she had pulmonary function test done here at our office but I do not see any report. She has used montelukast 10 mg daily in the past but not at present. She was recently seen at Neurology office, and diagnosed to have mild dementia. She was started on Memantin 5 mg daily but she say is she stop taking it. She has active rheumatoid arthritis with lot of aches and pains. Is being treated with Almacone-2 [facility] Medical History Trigger finger Sleep disorder breathing Latent tuberculosis Cough Asthma Fibromyalgia Chronic pain syndrome Myofascial muscle pain Osteoarthritis Fibromyalgia HTN (hypertension) Anxiety Surgical History H/O Spinal surgery Family History Father Diabetes Mother Acute arthritis Other Mental health disorder Social History Household Members: None Housing: Apartment Do you presently have visiting nurse or other home services: No Alcohol intake: never Comment: pt refusing alarms and camera Patient Tobacco Use Status: Never used Tobacco e-Cigarette/Vaping Use: Never Used Advance Directives Date on File: 02/26/22 service: No Current occupational status: unemployed Cognitive needs: No Hearing needs: No Vision needs: No Review of Systems Const All systems reviewed & are unremarkable except as noted in HPI and below Eyes Reports no additional complaints ENT Reports nasal congestion (Off and on) Card Denies chest pain, Denies irregular heart rhythm and Denies leg edema Resp Reports as per HPI GI Reports heartburn (Being treated for GERD) Reports no additional complaints Musc Reports back pain and Reports myalgias Skin/Breast Reports system reviewed and no additional complaints, except as documented Neuro Reports memory loss (Mild) Psych Reports no additional complaints and Reports memory loss (Mild) Endo Reports no additional complaints Julien/Lymph Reports no additional complaints Physical Exam Vital Signs: Last Vital Signs Pulse 93 10/26/23 15:46 BP 118/68 10/26/23 15:46 Pulse Ox 98 10/26/23 15:46 Oxygen Delivery Method Room Air 10/26/23 15:46 BMI result Body Mass Index 34.9 Const General: comfortable, no acute distress, alert and awake Orientation/consciousness: patient oriented x3 HEENT Head: Yes normal to inspection General nose exam: No nasal polyps present and No nasal discharge present Face and sinus: Yes sinuses nontender Mouth: oropharynx normal Teeth and gingiva: edentulous Throat: No posterior oropharynx normal (Tongue is placed back and oropharynx is narrow, Mallampati class 4.) Eyes General: appearance normal, both eyes and all related structures Neck Neck: Yes normal visual inspection, Yes no lymphadenopathy, Yes trachea midline and Yes no JVD Thyroid: Thyroid normal Chest Chest palpation & inspection: normal inspection of the chest, normal palpation of entire chest wall and no tenderness Resp Other: Percussion note resonant, breath sounds are distant on both sides, I did not hear wheezes or rhonchi. Cardio Palpation: normal PMI Rate: regular rate Rhythm: regular rhythm Heart sounds: no gallops and no murmurs GI Palpation (GI): Soft to palpation, nontender, No hepatosplenomegaly present and no masses Auscultation: normal bowel sounds Back/Spine/Pelvis Thoracic/Lumbar Spine: thoracic and lumbar spine normal to inspection and thoraco-lumbar ROM limited Skin General skin exam: no rashes or lesions noted Neuro General: patient oriented x3 and no focal motor deficits Cranial nerves: Yes CN's II-XII intact bilaterally Extrem General: Yes normal to inspection, Yes no clubbing, cyanosis or edema and Yes no calf tenderness Psych Speech and movement: Normal speech and movement present Affect: Anxious affect present Assessment & Plan Assessment & Plan (1) Cough: Comment: Cough especially at night may be part of her bronchial asthma. TX : See under bronchial asthma, and also she may use Robitussin DM 2 tsp q.6 hours p.r.n.. Code(s): R05.9 - Cough, unspecified Plan: as above (2) Asthma: Comment: She has the symptoms of cough and questionable wheezing especially at night. May have bronchial asthma. TX : As she is not benefiting from the use of albuterol solution alone, I will prescribe combination of albuterol/ipratropium solution to use in the nebulizer Q 4-6 hours p.r.n. She is also advise that she can take Montelukast 10 mg p.o. daily. Code(s): J45.909 - Unspecified asthma, uncomplicated Plan: as above Medications: New ipratropium-albuterol 0.5 mg-3 mg(2.5 mg base)/3 mL 3 mL inhalation Q6H PRN 180 mL 3RF wheezing/cough 30 days Coding Level of Care Code Est Pt Level 4 (58248) Diagnoses Cough R05.9 Asthma J45.909
[2023-10-26 15:46] VITALS: BP 118/68; PULSE 93; O2SAT 98; BMI 34.9
== END 2023-10-26 16:17 | disposition home or self-care (01) ==
PROVIDERS: PCP Internal Medicine; Visit Provider Internal Medicine
DX: R05.9 Cough, unspecified (principal); J45.909 Unspecified asthma, uncomplicated
CPT/HCPCS: 99214

== ENCOUNTER → 2023-10-26 15:33 | Outpatient (BNVA) | payer OTHER, SELFPAY | PROVIDERS: PCP Internal Medicine; Visit Provider Internal Medicine | DX: J45.909 Unspecified asthma, uncomplicated (principal); R05.9 Cough, unspecified | CPT/HCPCS: 99212 ==

== ENCOUNTER 2023-11-03 09:55 | Outpatient (AMB) | payer OTHER, SELFPAY ==
--- NOTE | 2023-11-03 10:11 | A.OFFVIS_ITS ---
Intake Vital Signs 11/03/23 10:12 Height 5 ft 3 in Weight 197 lb BMI 34.9 Pulse 113 H Pulse Source Pulse Oximeter Pulse Oximetry (%) 96 Oxygen Delivery Method Room Air Intake Visit Reasons: ?raúl Intake Note: pt is here for work up of sleep apnea, she snores and is very scared she will . Counselor/Art Therapist Required: No Allergies ibuprofen Allergy (Severe, Verified 11/03/23 10:32) shortness of breath acetaminophen [From Tylenol] Allergy (Verified 11/03/23 10:32) Shortness of Breath can food Allergy (Intermediate, Uncoded 11/03/23 10:32) shortness of breath Medication List - Last Reconciled 11/03/23 by Antonia Roach MD [adult diapers medium Use for incontinence episodes at night.] albuterol sulfate 0.63 mg (3 mL) inhalation QID PRN 90 days alum-mag hydroxide-simeth 400-400-40 mg/5 mL (Almacone-2) 5 mL PO TID 30 days benzonatate 200 mg PO BID PRN 10 days [Blood pressure monitor As directed] capsaicin 0.025% 1 appl topical DAILY cetirizine (Zyrtec) 10 mg PO DAILY 90 days cyclobenzaprine 10 mg PO BID PRN 90 days disposable gloves As directed duloxetine 20 mg PO DAILY 30 days ipratropium-albuterol 0.5 mg-3 mg(2.5 mg base)/3 mL 3 mL inhalation Q6H PRN 30 days lisinopril 5 mg PO DAILY 90 days memantine 5 mg PO QAM 30 days montelukast 10 mg PO DAILY nebulizer and compressor (Comp-Air Nebulizer Compressor) As directed pantoprazole 40 mg PO DAILY@0630 prednisone 20 mg PO DAILY 5 days [showering chairs As directed] simvastatin 20 mg PO BEDTIME walker As directed Do you need a note to return to daycare/school/sports/work: No HPI ?raúl HPI Details This 68 years old female, originally from [facility] , has come back for an urgent visit today, with her chief complaint of not able to sleep at night. She states that she gets choking episodes and has frequent awakenings. She is convinced that she has obstructive sleep apnea. Last year we tried a sleep lab based sleep study but it came out inconclusive. She was supposed to have a repeat study but she never came back for that. She was seen on 10/26, in relation to her bronchial asthma/ questionable COPD. She told me that she can not use inhalers, so I have prescribed ipratropium/albuterol solution to be used in the nebulizer Q 6 hours p.r.n.. She has been using it only once a day in the morning , and has not required to use it more often. Yet she complains of frequent cough and shortness of breath. She has history of anxiety, chronic back pain, has also become forgetful, recently seen by Dr. Sandhu, started on mementin 5 mg a day , but say is that she stopped taking it. She has ongoing pain in her hands and fingers, and is scheduled to have EMG study. She has chronic back pain for which she is taking duloxetine 20 mg daily and cyclobenzaprine 10 mg b.i.d.. For anxiety she also has lorazepam at home but has not been using it. On further questioning she states that she does take 1 pill at night but it does not help in making her sleep. Today she has come for an urgent visit hoping that we will just go ahead and prescribe a CPAP device for her. She is having difficulty in understanding the procedure. She does not think that she can keep on coming back to our office, and we can manage her just by telephone calls. She does have a TRAIN BRAKER who visits her a few times per week. Her talked to her daughter,Adriana, who is a professional coal carrier for aerobic and or the language. 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 Rosalina admits that her mom has anxiety, some forgetfulness, poor understanding of the procedures. And she is going to help us in making her mom understand. [facility] Medical History (Updated 11/03/23 @ 11:42 by Antonia Roach MD) RAÚL (obstructive sleep apnea) Trigger finger Sleep disorder breathing Latent tuberculosis Cough Asthma Fibromyalgia Chronic pain syndrome Myofascial muscle pain Osteoarthritis Fibromyalgia HTN (hypertension) Anxiety Surgical History H/O Spinal surgery Family History Father Diabetes Mother Acute arthritis Other Mental health disorder Social History Household Members: None Housing: Apartment Do you presently have visiting nurse or other home services: No Alcohol intake: never Comment: pt refusing alarms and camera Patient Tobacco Use Status: Never used Tobacco e-Cigarette/Vaping Use: Never Used Advance Directives Date on File: 02/26/22 service: No Current occupational status: unemployed Cognitive needs: No Hearing needs: No Vision needs: No Review of Systems Const All systems reviewed & are unremarkable except as noted in HPI and below Eyes Reports no additional complaints ENT Reports nasal congestion (Off and on) Card Denies chest pain, Denies irregular heart rhythm and Denies leg edema Resp Reports as per HPI GI Reports heartburn (Being treated for GERD) Reports no additional complaints Musc Reports back pain and Reports myalgias Skin/Breast Reports system reviewed and no additional complaints, except as documented Neuro Reports memory loss (Mild) Psych Reports no additional complaints and Reports memory loss (Mild) Endo Reports no additional complaints Julien/Lymph Reports no additional complaints Physical Exam Vital Signs: Last Vital Signs Pulse 113 H 11/03/23 10:12 Pulse Ox 96 11/03/23 10:12 Oxygen Delivery Method Room Air 11/03/23 10:12 BMI result Body Mass Index 34.9 Const General: comfortable, no acute distress, alert and awake Orientation/consciousness: patient oriented x3 HEENT Head: Yes normal to inspection General nose exam: No nasal polyps present and No nasal discharge present Face and sinus: Yes sinuses nontender Mouth: oropharynx normal (Oropharynx is moderately crowded, Mallampati class 3) Teeth and gingiva: edentulous Throat: No posterior oropharynx normal (Tongue is placed back and oropharynx is narrow, Mallampati class 4.) Eyes General: appearance normal, both eyes and all related structures Neck Neck: Yes normal visual inspection, Yes no lymphadenopathy, Yes trachea midline and Yes no JVD Thyroid: Thyroid normal Chest Chest palpation & inspection: normal inspection of the chest, normal palpation of entire chest wall and no tenderness Resp Other: Percussion note resonant, breath sounds are distant on both sides, She has a few scattered wheezes in the upper part of the chest. Cardio Palpation: normal PMI Rate: regular rate Rhythm: regular rhythm Heart sounds: no gallops and no murmurs GI Palpation (GI): Soft to palpation, nontender, No hepatosplenomegaly present and no masses Auscultation: normal bowel sounds Back/Spine/Pelvis Thoracic/Lumbar Spine: thoracic and lumbar spine normal to inspection and thoraco-lumbar ROM limited Skin General skin exam: no rashes or lesions noted Neuro General: patient oriented x3 and no focal motor deficits Cranial nerves: Yes CN's II-XII intact bilaterally Extrem General: Yes normal to inspection, Yes no clubbing, cyanosis or edema and Yes no calf tenderness Psych Speech and movement: Normal speech and movement present Affect: Anxious affect present Assessment & Plan Assessment & Plan (1) Asthma: Comment: She has the symptoms of cough and questionable wheezing especially at night. May have bronchial asthma. TX : As she is not benefiting from the use of albuterol solution alone, I have prescribed combination of albuterol/ipratropium solution to use in the nebulizer Q 4-6 hours p.r.n. She may use it up to 3 times aday She is also advise that she can take Montelukast 10 mg p.o. daily. Code(s): J45.909 - Unspecified asthma, uncomplicated Plan: as above (2) Cough: Comment: Cough especially at night may be part of her bronchial asthma. TX : See under bronchial asthma, and also she may use Robitussin DM 2 tsp q.6 hours p.r.n.. Code(s): R05.9 - Cough, unspecified Plan: as above (3) Anxiety, generalized: Comment: She is quite anxious and, I had a detailed discussion with her to explain about the pulmonary problems. Tried to reassure her , explained about the nonspecific findings on CT scan. not to worry . Code(s): F41.1 - Generalized anxiety disorder Plan: as above (4) Obesity due to excess calories: Comment: ,She is moderately obese and this may be contributing to her symptoms of sleep apnea at night. Code(s): E66.09 - Other obesity due to excess calories Qualifiers: Obesity classification: adult class 1 (BMI 30 - 34.9) Serious obesity comorbidity presence: with serious comorbidity Body mass index: BMI 33.0-33.9 Qualified Code(s): E66.09 - Other obesity due to excess calories; Z68.33 - Body mass index [BMI] 33.0-33.9, adult Plan: Explained about obesity but she is not in the right mental set up to lose weight. (5) Dementia: Comment: Advanced. MMSE 8 Code(s): F03.90 - Unspecified dementia, unspecified severity, without behavioral disturbance, psychotic disturbance, mood disturbance, and anxiety Plan: She is supposed to be followed up at the neurology office (6) RAÚL (obstructive sleep apnea): Comment: Has frequent bouts of choking and not able to go back to sleep. There is a high suspicion for obstructive sleep apnea. Or her symptoms may be due to anxiety. Code(s): G47.33 - Obstructive sleep apnea (adult) (pediatric) Plan: He has not been able to complete her in-lab sleep study. I plan to order a home-based sleep study as soon as possible . I have talked to her daughter and advised her to help us in completing the home- based sleep study. Patient is so anxious she wants to have his CPAP machine right away, and it took long time for me to make her understand the procedure. I also had a detailed discussion with her daughter, Adriana. Orders: Orders RT home sleep study Today F03.90 - Unspecified dementia, unspecified severity, without behavioral disturbance, psychotic disturbance, mood disturbance, and anxiety, G47.30 - Sleep apnea, unspecified, G47.33 - Obstructive sleep apnea (adult) (pediatric) Coding Level of Care Code Est Pt Level 4 (41257) Diagnoses Asthma J45.909 Cough R05.9 Anxiety, generalized F41.1 Class 1 obesity due to excess calories with serious comorbidity and body mass index (BMI) of 33.0 to 33.9 in adult E66.09; Z68.33 Obesity classification: adult class 1 (BMI 30 - 34.9) Serious obesity comorbidity presence: with serious comorbidity Body mass index: BMI 33.0-33.9 Dementia F03.90 RAÚL (obstructive sleep apnea) G47.33
[2023-11-03 10:12] VITALS: PULSE 113; O2SAT 96; BMI 34.9
== END 2023-11-03 10:54 | disposition home or self-care (01) ==
PROVIDERS: PCP Internal Medicine; Visit Provider Internal Medicine
DX: J45.909 Unspecified asthma, uncomplicated (principal); R05.9 Cough, unspecified; F41.1 Generalized anxiety disorder; E66.09 Other obesity due to excess calories; Z68.33 Body mass index [BMI] 33.0-33.9, adult; F03.90 Unspecified dementia, unspecified severity, without behavioral disturbance, psychotic disturbance, mood disturbance, and anxiety; G47.33 Obstructive sleep apnea (adult) (pediatric)
CPT/HCPCS: 99214

== ENCOUNTER 2023-11-03 13:31 | Outpatient (REF) | payer OTHER, SELFPAY ==
--- NOTE | 2023-11-03 13:39 | EMG_ITS ---
Chief complaint: Bilateral hand numbness Reason for referral: Evaluate for Carpal Tunnel Syndrome History of right CTR 2004 Procedure done: Attempted NCS Precautions and/or limitations: Patient could not tolerate the test The limb temperature was monitored continuously and remained between 32-36 degrees C during the performance of the NCS. Nerve Conduction Studies Anti Sensory Summary Table ?Stim Site NR Onset (ms) Norm Onset (ms) Peak (ms) Norm Peak (ms) O-P Amp (?V) Norm O-P Amp Site1 Site2 Delta-0 (ms) Dist (cm) Danny (m/s) Norm Danny (m/s) Left Median Anti Sensory (2nd Digit) Wrist ? 3.1 4.0 <3.6 22.9 >10 Wrist 2nd Digit 3.1 14.0 45 Right Median Anti Sensory (2nd Digit) Wrist ? 2.6 3.3 <3.6 44.5 >10 Wrist 2nd Digit 2.6 14.0 54 Motor Summary Table ?Stim Site NR Onset (ms) Norm Onset (ms) O-P Amp (mV) Norm O-P Amp iAmp (mV) Amp (1st) (%) Site1 Site2 Delta-0 (ms) Dist (cm) Danny (m/s) Norm Danny (m/s) Left Median Motor (Abd Poll Brev) Wrist ? 4.0 <3.9 4.8 >4.5 5.9 100.0 Elbow Wrist 3.3 0.0 >45 Elbow ? 7.3 5.3 6.8 110.4 Right Median Motor Run #2 (Abd Poll Brev) Wrist ? 4.2 <3.9 1.7 >4.5 2.1 100.0 Elbow Wrist 3.1 19.0 61 >45 Elbow ? 7.3 2.3 2.9 135.3 FINDINGS: Right median motor nerves showed prolonged distal latency, small amplitude and normal conduction velocity. Left median motor nerves showed prolonged distal latency, normal amplitude and normal conduction velocity. Left median sensory nerve showed prolonged peak latency. Evidence of possible Ronak Kentrell anastomosis was seen, which is a normal anatomic variant. Poor tolerance of test. Further testing aborted. Patient kept moving during NCS. Needle EMG not done. 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 However given poor tolerance of this, correlate clinically and interpret with caution. Thank you for your kind referral. Elizabeth Monique MD, GOLDY Board Certified, [place] [employer] and [employer] (ABPMR) Board Certified, [place] [employer] Electrodiagnostic [employer] (ABEM) [place]
== END 2023-11-03 13:32 | disposition home or self-care (01) ==
LOC: HO.NEURO 13:31
PROVIDERS: PCP Internal Medicine; Visit Provider Physical Medicine & Rehabilitation
DX: R20.0 Anesthesia of skin (principal); J45.909 Unspecified asthma, uncomplicated; R05.9 Cough, unspecified; F41.1 Generalized anxiety disorder
CPT/HCPCS: 95908; 99212

== ENCOUNTER → 2023-11-03 13:39 | Outpatient (BNV) | payer OTHER, SELFPAY | PROVIDERS: PCP Internal Medicine; Visit Provider Physical Medicine & Rehabilitation | DX: M79.641 Pain in right hand (principal); M79.642 Pain in left hand; R20.2 Paresthesia of skin | CPT/HCPCS: 95908 ==

== ENCOUNTER 2023-12-02 08:00 | Outpatient (AMB) | payer OTHER, SELFPAY ==
--- NOTE | 2023-12-02 08:02 | MHC.PC.OV ---
Intake Visit Reasons: Req Meds~ Allergies ibuprofen Allergy (Severe, Verified 12/02/23 08:02) shortness of breath acetaminophen [From Tylenol] Allergy (Verified 12/02/23 08:02) Shortness of Breath can food Allergy (Intermediate, Uncoded 11/03/23 10:32) shortness of breath Medication List - Last Reconciled 12/02/23 by Federico Yates MD [adult diapers medium Use for incontinence episodes at night.] albuterol sulfate 0.63 mg (3 mL) inhalation QID PRN 90 days albuterol sulfate 2.5 mg (3 mL) inhalation Q4-6H PRN 30 days [Blood pressure monitor As directed] capsaicin 0.025% 1 appl topical DAILY cetirizine (Zyrtec) 10 mg PO DAILY 90 days cyclobenzaprine 10 mg PO BID PRN 90 days disposable gloves Size medium [disposable pads-up to 3/day As directed] doxepin 10 mg PO BEDTIME duloxetine 20 mg PO DAILY 30 days ipratropium-albuterol 0.5 mg-3 mg(2.5 mg base)/3 mL 3 mL inhalation Q6H PRN 30 days lisinopril 5 mg PO DAILY 90 days lorazepam 1 mg PO DAILY PRN lorazepam 0.5 mg PO BEDTIME PRN 30 days memantine 5 mg PO QAM 30 days montelukast 10 mg PO DAILY nebulizer and compressor (Comp-Air Nebulizer Compressor) As directed pantoprazole 40 mg PO DAILY@0630 [showering chairs As directed] simvastatin 20 mg PO BEDTIME walker As directed Tobacco use date assessed: 12/02/23 Fall risk assessment: No Falls in past year Last assessed Fall Risk: 12/02/23 Dental Screening Dental Screen Date: 12/02/23 Did you have a dental visit in the last 12 months?: Yes Did you have a dental problem in the last 6 months where you did not have access to dental care?: No Was dental information given to patient?: Patient has dentist HPI Req Meds~ HPI Details Patient is 68-year-old female this is a telemedicine video conference Patient says that she is feeling sick for the past 2 weeks, initially she had fever but no more She is coughing up green phlegm which is not getting better Patient says that she is using albuterol nebulized treatment 2 times a day. I have sent azithromycin for her along with benzonatate cough medicine and prednisone 10 mg to be taken once a day for 5 days She is able to keep fluid and food down There is no chest pain but mild shortness of breath is there. We will book a follow-up appointment next week [facility] Medical History RAÚL (obstructive sleep apnea) Trigger finger Sleep disorder breathing Latent tuberculosis Cough Asthma Fibromyalgia Chronic pain syndrome Myofascial muscle pain Osteoarthritis Fibromyalgia HTN (hypertension) Anxiety Surgical History H/O Spinal surgery Family History Father Diabetes Mother Acute arthritis Other Mental health disorder Social History Household Members: None Housing: Apartment Do you presently have visiting nurse or other home services: No Alcohol intake: never Comment: pt refusing alarms and camera Patient Tobacco Use Status: Never used Tobacco e-Cigarette/Vaping Use: Never Used Advance Directives Date on File: 02/26/22 service: No Current occupational status: unemployed Cognitive needs: No Hearing needs: No Vision needs: No Questionnaire PHQ-9 Over the last 2 weeks, how often have you been bothered by any of the following problems? 26533 - PHQ-9 Billing: Patient declined-do not bill Source: Developed by Drs. Bj Ingram, Yolanda Glass, Dexter Ferguson and colleagues, with an educational jesus from [employer] Thrive Questionnaire Date Thrive assessed: 12/02/23 I am a: Patient What is your living situation today?: I have a steady place to live Within the past 12 months, did the food you bought not last and you didn't have the money to get more?: Never true Within the past 12 months, did you worry whether your food would run out before you got money to buy more?: Never true Do you have trouble paying for medicines?: No Do you have trouble getting transportation to medical appointments?: No Do you have trouble paying your heating and electricity bill?: No Do you have trouble taking care of your child, family member or friend?: No Do you have trouble with day-to-day activities such as bathing, preparing meals, shopping, managing finances, etc.?: No Are you currently unemployed and looking for a job?: No Are you interested in more education?: No Please select the resources that you would like help with: None Currently or been in a relationship where the following occur: no concerns reported THRIVE Score: 0 MATTHEW-7 AMB Questionnaire MATTHEW-7 Date MATTHEW - 7 assessed: 12/02/23 Source: Developed by Drs. Bj Ingram, Yolanda Glass, Dexter Ferguson and colleagues, with an educational jesus from [employer]. Review of Systems Const Denies fever(s) ENT Denies epistaxis and Denies nasal discharge Card Denies chest pain Resp Denies hemoptysis GI Denies diarrhea and Denies nausea Skin/Breast Denies rash Neuro Reports no additional complaints Psych Reports no additional complaints Endo Reports no additional complaints Physical exam (Primary Care) Tobacco/Smoking Status: Tobacco use Status Tobacco use date assessed 12/02/23 12/02/23 08:06 Patient Tobacco Use Status Never used Tobacco 12/02/23 08:06 e-Cigarette/Vaping Use Never Used 12/02/23 08:06 Thrive Assessment: Date of Thrive Assessment Date Thrive assessed 12/02/23 12/02/23 08:06 Currently or been in a relationship where the following occur: no concerns reported Telehealth Telehealth Location of provider rendering services: practice address Location of patient: address on file Patient Identification confirmed using: Name, : Yes Telehealth method: video Patient verbally consented to treatment: Yes Patient verbally consented to billing insurance company: Yes Patient informed of any privacy concerns related to visit: Yes Minutes spent on Phone/Video with Pt.: 13 Assessment and Plan Assessment & Plan (1) Acute bronchitis: Code(s): J20.9 - Acute bronchitis, unspecified Qualifiers: Bronchitis organism: other organism Qualified Code(s): J20.8 - Acute bronchitis due to other specified organisms (2) Asthma exacerbation: Code(s): J45.901 - Unspecified asthma with (acute) exacerbation Qualifiers: Asthma persistence: persistent Asthma severity: moderate Qualified Code(s): J45.41 - Moderate persistent asthma with (acute) exacerbation Plan Patient is 68-year-old female this is a telemedicine video conference Patient says that she is feeling sick for the past 2 weeks, initially she had fever but no more She is coughing up green phlegm which is not getting better Patient says that she is using albuterol nebulized treatment 2 times a day. I have sent azithromycin for her along with benzonatate cough medicine and prednisone 10 mg to be taken once a day for 5 days She is able to keep fluid and food down There is no chest pain but mild shortness of breath is there. We will book a follow-up appointment next week Medications: New azithromycin Take 2 tablets today then 1 daily 250 mg PO ONCE 6 tabs 0RF 5 days J06.9 - Acute upper respiratory infection, unspecified prednisone 10 mg PO DAILY 5 tabs 0RF 5 days benzonatate 200 mg PO BID PRN 20 caps 0RF cough 10 days Coding Level of Care Code Tele Est Pt Level 4 (88251) Diagnoses Acute bronchitis due to other specified organisms J20.8 Bronchitis organism: other organism Moderate persistent asthma with exacerbation J45.41 Asthma persistence: persistent Asthma severity: moderate
--- OUTSIDE RECORDS SUMMARY | 2023-12-02 08:09 | XMS_ITS | Continuity of Care Document ---
Author Name Unknown Organization [facility] ter Address [address] [place] [id number] Care Team Providers Care Hotel Yardperson Name Role Phone Milan JOHNSON, Asma Primary Care Physician Encounter [facility] Date(s): 10/15/23 - 10/15/[address] [address]- Encounter Diagnosis Cough(Final) - 10/15/23 Cough(Final) - 10/15/23 Discharge Disposition: A-D/C Home Attending Physician: Bj Frias MD Admitting Physician: Bj Frias MD Referring Physician: Not on Staff, Referring MD Allergies, Adverse Reactions, Alerts Substance Reaction Severity Status ibuprofen Shortness of breath Active Motrin 1 Anaphylaxis Active Tylenol Shortness of breath Anaphylaxis Persistent Severe Active 1Tolerates Meloxicam Immunizations Given and Recorded Vaccine Date Status Refusal Reason SARS-CoV-2 mRNA ([id number]-[id number]) vax 04/22/22 Recorded SARS-CoV-2 mRNA ([id number]-swro-ynike) vax 03/23/22 Recorded pneumococcal 23-valent vaccine 02/27/19 Given tetanus/diphtheria/pertussis, acel(Tdap) 02/06/19 Given Medications Abdominal Binder Abdominal Binder, 1, Topically, Wednesday through Wednesday, # 1 each, Refills 0, Tot. 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, 08/08/20 16:56:00 EDT, Supply Start Date: 08/08/20 Status: Ordered albuterol 0.083% inhalation solution 3 mL, Inhalation, Every 6 hours, PRN NEEDED FOR WHEEZING, # 90 mL, 0 Refills, [facility] #[id number], 153, cm, 07/18/21 11:26:00 EDT, Height, 84, kg, 07/31/20 17:07:00 EDT, Dry Weight Start Date: 08/01/21 Status: Ordered albuterol-ipratropium 3 mg-0.5 mg/3 ml inhalation solution 3 mL, Neb, 4 times a day, PRN Wheezing/Shortness of Breath, for use with nebulizer, # 360 mL, 11 Refills, Maintenance, 07/18/21 11:54:00 EDT, Solution, [facility] #[id number], Partial fill upon patient request if the prescription is for a schedul... Start Date: 07/18/21 Status: Ordered azithromycin 250 mg oral tablet 1 tablet = 250 mg, By Mouth, Daily, for 4 days, # 4 tablet, 0 Refills, Acute 10/19/23 11:56:00 EST,10/15/23 11:56:00 EST, Tablet, [facility], Partial fill upon patient request if theprescription is for a schedule II opioid drug., 156, cm... Start Date: 10/15/23 Stop Date: 10/19/23 Status: Ordered Blood pressure cuff dxL malignant [...] 11 Refills, Maintenance, 07/18/21 11:52:00 EDT, Cream, [facility] #[id number], 1 applicator Topically 3 times a day,PRN:back [...] Refills, Maintenance, 08/04/21 9:55:00 EDT, EC Capsule, [facility] #[id number], Partial fill upon patient request if the prescription is for a schedule II opioid drug., 153, cm, 07/18/21... Start Date: 08/04/21 Status: Ordered gabapentin 300 mg oral capsule 300 mg, 1, capsule, By Mouth, Daily at bedtime, # 30 capsule, Refills 11, Tot. Refills 11, Maintenance, 07/18/21 12:00:00 EDT, Route to Pharmacy Electronically, [facility] #[id number], Partial fill upon patient request if the prescription is for... Start Date: 07/18/21 Status: Ordered lisinopril 5 mg oral tablet 1, tablet, By Mouth, 2 times a day, # 60 tablet, Refills 0, Route to Pharmacy Electronically, [facility] #[id number], 153, cm, 08/18/21 12:15:00 EDT, Height, 84, kg, 07/31/20 17:07:00 EDT, Dry Weight Start Date: 09/04/21 Status: Ordered LORazepam 1 mg oral tablet 1 tablet = 1 mg, By Mouth, Daily at bedtime, PRN as needed for anxiety, QHS PRN anxiety, # 3 tablet, 0 Refills, [...] 07/18/21 11:56:00 EDT, Route to Pharmacy Electronically, [facility] #[id number], 153, cm, 07/18/21 11:26:00 EDT, Height, 84, kg... Start Date: 07/18/21 Status: Ordered multivitamin Multiple Vitamins oral capsule 1 capsule, By Mouth, Daily, # 30 capsule, 11 Refills, Maintenance, 08/14/21 18:41:00 EDT, Capsule, [facility] #[id number], 1 capsule By Mouth Daily, 153, cm, [...] tablet, 0 Refills, Maintenance, 11/19/2114:33:00 EST, Tablet, [facility] #[id number], Partial fill upon patient request if the [...] Dry Weight Start Date: 07/18/21 Status: Ordered predniSONE 20 mg oral tablet 2 tablet = 40 mg, By Mouth, Daily, for 4 days, # 8 tablet, 0 Refills, Acute 10/19/23 11:56:00 EST, 10/15/23 11:56:00 EST, Tablet, [facility], Partial fill upon patient request if the prescription is for a schedule II opioid drug., 156, cm,... Start Date: 10/15/23 Stop Date: 10/19/23 Status: Ordered Pull up briefs/ diapers size 4x Pull up briefs/ diapers size 4x, See Instructions, # 450 each, Refills 11, Tot. Refills 11, Maintenance, size: 4x Dx: urinary incontinence, 10/26/20 10:32:00 EST, Supply Start Date: 10/26/20 Status: Ordered rifampin 300 mg oral capsule 2 capsule = 600 mg, By Mouth, Daily, # 60 capsule, 3 Refills, Maintenance, 08/04/22 14:29:00 EDT, [facility], Partial fill upon patient request if [...] 07/18/21 11:52:00 EDT, Route to Pharmacy Electronically, [facility] #[id number], 153, cm, 07/18/21 11:26:00 EDT, Height, 84, [...] tablet, 11 Refills, Maintenance, 07/18/21 11:57:00 EDT, [facility] #[id number], 153, cm, 07/18/21 11:26:00 EDT, Height, 84, [...] 12/13/22. Pt completed 4 months ofLTBI therapy. Results Radiology Reports * Exam Date Time Procedure Performing Provider Status 10/15/23 8:32 AM Chest 2 Views Frontal and Lat Aaron Krishnan iqueline; Auth (Verified) Notes: (Chest 2 Views Frontal and Lat) Reason For Exam: Shortness of Breath RESULT: Chest 2 Views Frontal and Lat Chest 2 Views Frontal and Lat Hx of Present Illness: Pt coming from home with c o cough x 10 days. No relief with home albuterol.? productive cough; Reason: Shortness of Breath; Clinical Question(s): Pneumonia; Special Instructions: This is a protocol film and radiologist should call any findings to the Charge Nurse COMPARISON: 06/19/2022 FINDINGS: Linear densities in the midlung zones may be due to subsegmental atelectasis or parenchymal scar. No significant change from the previous exam. No acute cardiopulmonary process. IMPRESSION: No acute abnormality. WSN: [id number] Ordering Physician: Mirta Asencio Dictated By: Jovanni Khan MD Dictated Date/Time: 10/15/23 8:34 am Reviewed By: Jovanni Khan MD Signed By: Jovanni Khan MD Signed Date/Time: 10/15/23 8:34 am Transcribed By: COLETTE Transcribed Date/Time: 10/15/23 8:33 am Vital Signs Most recent to oldest [Reference Range]: 1 Oxygen Saturation [94-100 %] 94 % (10/15/23 7:35 AM) Pulse Rate [55-90 bpm] 96 bpm *H* (10/15/23 7:35 AM) Blood Pressure [90-138/55-84 mm Hg] 138/ 57mm Hg (10/15/23 7:35 AM) Respiratory Rate [16-30 br/min] 19 br/mi n (10/15/23 7:35 AM) Temperature [96.8-100.4 DegF] 98.8 DegF (10/15/23 7:35 AM) Mode of Delivery (Oxygen) Room air (10/15/23 7:35 AM) Blood pressure sites Arm, left (10/15/23 7:35 AM) Temperature Route Oral (10/15/23 7:35 AM) Social History Social History Type Response Smoking Status Never (less than 100 in lifetime) entered on: 12/05/20 Sex Female Note * Mino Morin: PERFORM Event Display: Patient Education Leaflets Authored Date: [id number] Acute Bronchitis ?? Acute Bronchitis - Video Acute bronchitis refers to inflammation of the central airways that usually clears up within 4 to 8weeks. Viral infections are the most common cause. This video explores other possible causes, available treatments, and steps you can take to prevent it. To view the video go to this web address: [email or web address] Or, scan this QR code with your smart phone Last Reviewed Date: 2020 ?? 1060-8561 [employer]. All rights reserved. This information is not intended as a substitute for professional medical care. Always follow your healthcare professional's instructions. ?? Patient Care team information Care Team Personnel Name: Christa Villalta Position: [facility] RN Member Role: Primary Care Nurse Name: Lori Toure RN Position: [facility] RN Member Role: Primary Care Nurse Name: Shelia Dallas RN Position: [facility] AMB Nurse Member Role: Primary Care Nurse Name: Federico Yates MD Position: [facility] Physician - Primary Care Member Role: PCP Address: Address: [address] [place], [place] [address] Name: Mary Arias RN Position: [facility] RN Member Role: Primary Care Nurse Name: Sonya Harrell RN Position: [facility] RN Member Role: Primary Care Nurse Name: Bj Frias MD Position: [facility] ED Medicine MD Member Role: Admitting Physician Address: Address: [address] [place] [address] Name: Mino Morin Position: [facility] Associate Professional Member Role: ED Physician Repairer Controller Tester Address: Address: [address] [place] [address] Name: Kira Garrett Position: [facility] ED TA SHANTE Name: Teena Dorantes RN Position: [facility] ED RN W/OE and Tasks Member Role: Patient Care Provider Care Team Related Persons Name: BRANDON GIL Address: home [address] [place] [address]
== END 2023-12-02 11:36 | disposition home or self-care (01) ==
LOC: HO.HMGC 08:00
PROVIDERS: PCP Internal Medicine; Visit Provider Internal Medicine
DX: J20.8 Acute bronchitis due to other specified organisms (principal); J45.41 Moderate persistent asthma with (acute) exacerbation
CPT/HCPCS: 99214

== ENCOUNTER 2023-12-09 08:32 | Outpatient (AMB) | payer OTHER, SELFPAY ==
--- NOTE | 2023-12-09 08:51 | A.OFFPC_ITS ---
Intake Visit Reasons: 1 wk F/u~ Allergies ibuprofen Allergy (Severe, Verified 12/09/23 08:52) shortness of breath acetaminophen [From Tylenol] Allergy (Verified 12/09/23 08:52) Shortness of Breath can food Allergy (Intermediate, Uncoded 11/03/23 10:32) shortness of breath Medication List - Last Reconciled 12/09/23 by Federico Yates MD [adult diapers medium Use for incontinence episodes at night.] albuterol sulfate 0.63 mg (3 mL) inhalation QID PRN 90 days albuterol sulfate 2.5 mg (3 mL) inhalation Q4-6H PRN 30 days [bed table As directed] benzonatate 200 mg PO BID PRN 10 days blood pressure monitor As directed [Blood pressure monitor As directed] cetirizine (Zyrtec) 10 mg PO DAILY 90 days cyclobenzaprine 10 mg PO BID PRN 90 days disposable gloves Size medium [disposable pads-up to 3/day As directed] doxepin 10 mg PO BEDTIME duloxetine 20 mg PO DAILY 30 days ipratropium-albuterol 0.5 mg-3 mg(2.5 mg base)/3 mL 3 mL inhalation Q6H PRN 30 days lisinopril 5 mg PO DAILY 90 days lorazepam 1 mg PO DAILY PRN lorazepam 0.5 mg PO BEDTIME PRN 30 days memantine 5 mg PO QAM 30 days montelukast 10 mg PO DAILY nebulizer and compressor (Comp-Air Nebulizer Compressor) As directed pantoprazole 40 mg PO DAILY@0630 [showering chairs As directed] simvastatin 20 mg PO BEDTIME walker As directed Tobacco use date assessed: 12/09/23 Fall risk assessment: 1 Fall in past year Last assessed Fall Risk: 12/09/23 Dental Screening Dental Screen Date: 12/09/23 Did you have a dental visit in the last 12 months?: Yes Did you have a dental problem in the last 6 months where you did not have access to dental care?: No Was dental information given to patient?: Patient has dentist HPI 1 wk F/u~ HPI Details Patient is 68-year-old female this is a tele medicine visit Patient was treated with antibiotic last visit when she complained of coughing and chest congestion She is feeling much better there is no more cough there is no shortness of breath no chest pains Patient is complaining of feeling nauseous which is a chronic problem for the patient I have offered her gastroenterology appointment which she has declined I have sent few Zofran tablet for the patient She is also complaining of not been able to sleep I see that she is seeing psychiatrist and is taking duloxetine, doxepin, lorazepam I have told her to discuss it further with the Psychiatry. [facility] Medical History RAÚL (obstructive sleep apnea) Trigger finger Sleep disorder breathing Latent tuberculosis Cough Asthma Fibromyalgia Chronic pain syndrome Myofascial muscle pain Osteoarthritis Fibromyalgia HTN (hypertension) Anxiety Surgical History H/O Spinal surgery Family History Father Diabetes Mother Acute arthritis Other Mental health disorder Social History Household Members: None Housing: Apartment Do you presently have visiting nurse or other home services: No Alcohol intake: never Comment: pt refusing alarms and camera Patient Tobacco Use Status: Never used Tobacco e-Cigarette/Vaping Use: Never Used Advance Directives Date on File: 02/26/22 service: No Current occupational status: unemployed Cognitive needs: No Hearing needs: No Vision needs: No Questionnaire Thrive Questionnaire Date Thrive assessed: 12/02/23 AUDIT C Alcohol Use Questionnaire (AUDIT-C) 1. How often do you have a drink containing alcohol?: Never 3. How often do you have six or more drinks on one occasion?: Never Total Score: 0 Score Reviewed/Action Taken: Yes MATTHEW-7 AMB Questionnaire MATTHEW-7 Date MATTHEW - 7 assessed: 12/02/23 Source: Developed by Drs. Bj Ingram, Yolanda Glass, Dexter Ferguson and colleagues, with an educational jesus from [employer]. Review of Systems Const Denies chills and Denies fever(s) ENT Denies epistaxis and Denies nasal discharge Card Denies chest pain Resp Denies chest congestion, Denies cough and Denies hemoptysis GI Denies diarrhea Skin/Breast Denies rash Neuro Reports no additional complaints Psych Reports no additional complaints Endo Reports no additional complaints Physical exam (Primary Care) Tobacco/Smoking Status: Tobacco use Status Tobacco use date assessed 12/09/23 12/09/23 08:57 Patient Tobacco Use Status Never used Tobacco 12/09/23 08:57 e-Cigarette/Vaping Use Never Used 12/09/23 08:57 Thrive Assessment: Date of Thrive Assessment Date Thrive assessed 12/02/23 12/09/23 08:57 Telehealth Telehealth Location of provider rendering services: practice address Location of patient: address on file Patient Identification confirmed using: Name, : Yes Telehealth method: video Patient verbally consented to treatment: Yes Patient verbally consented to billing insurance company: Yes Patient informed of any privacy concerns related to visit: Yes Minutes spent on Phone/Video with Pt.: 13 Assessment and Plan Assessment & Plan (1) Chronic nausea: Code(s): R11.0 - Nausea Plan Patient is 68-year-old female this is a tele medicine visit Patient was treated with antibiotic last visit when she complained of coughing and chest congestion She is feeling much better there is no more cough there is no shortness of breath no chest pains Patient is complaining of feeling nauseous which is a chronic problem for the patient I have offered her gastroenterology appointment which she has declined I have sent few Zofran tablet for the patient She is also complaining of not been able to sleep I see that she is seeing psychiatrist and is taking duloxetine, doxepin, lorazepam I have told her to discuss it further with the Psychiatry. Medications: New ondansetron HCl 4 mg PO Q8H PRN 14 tabs 0RF nausea and vomiting 7 days R11.0 - Nausea Discontinued benzonatate Discontinued Reason: Doctor's Order 200 mg PO BID 10 days PRN 20 caps 0RF cough Coding Level of Care Code Tele Est Pt Level 3 (10408) Diagnoses Chronic nausea R11.0
== END 2023-12-09 12:38 | disposition home or self-care (01) ==
LOC: HO.HMGC 08:32
PROVIDERS: PCP Internal Medicine; Visit Provider Internal Medicine
DX: R11.0 Nausea (principal)
CPT/HCPCS: 99213

== ENCOUNTER 2023-12-10 10:27 | Outpatient (AMB) | payer OTHER, SELFPAY ==
--- NOTE | 2023-12-10 10:37 | A.OFFVIS_ITS ---
Intake Vital Signs 12/10/23 10:40 Height 5 ft 3 in BP 130/78 Blood Pressure Location Lt radial Position Sitting Respiration 12 Pulse Source Pulse Oximeter Intake Visit Reasons: Left Side Trigger Point Injection/confirmed Allergies ibuprofen Allergy (Severe, Verified 12/10/23 10:43) shortness of breath acetaminophen [From Tylenol] Allergy (Verified 12/10/23 10:43) Shortness of Breath can food Allergy (Intermediate, Uncoded 12/10/23 10:43) shortness of breath HPI Left Side Trigger Point Injection/confirmed HPI Details 68-year-old female who presents today to the office for multiple procedures. Denies any recent cough, cold, infection, fever or other significant changes in medical history since last office visit. Past procedures: 11/16/22: Trigger point injections with s teroid to her left periscapular, left neck, left shoulder and right shoulder region 11/16/22: Intra-articular corticosteroid injection to the right elbow under ultrasound guidance. [facility] Medical History (Updated 12/16/23 @ 08:49 by Elizabeth Monique MD) Fall Lumbar spinal stenosis RAÚL (obstructive sleep apnea) Trigger finger Sleep disorder breathing Latent tuberculosis Cough Asthma Fibromyalgia Chronic pain syndrome Myofascial muscle pain Osteoarthritis Fibromyalgia HTN (hypertension) Anxiety Surgical History (Updated 12/16/23 @ 08:36 by Elizabeth Monique MD) History of lumbar surgery H/O Spinal surgery Family History Father Diabetes Mother Acute arthritis Other Mental health disorder Social History Household Members: None Housing: Apartment Do you presently have visiting nurse or other home services: No Alcohol intake: never Comment: pt refusing alarms and camera Patient Tobacco Use Status: Never used Tobacco e-Cigarette/Vaping Use: Never Used Advance Directives Date on File: 02/26/22 service: No Current occupational status: unemployed Cognitive needs: No Hearing needs: No Vision needs: No Review of Systems Const All systems reviewed & are unremarkable except as noted in HPI and below Physical Exam Vital Signs: Last Vital Signs Resp 12 12/10/23 10:40 BP 130/78 12/10/23 10:40 General: Appears afebrile. Alert and oriented. Mood and affect appropriate. Follows and participates in conversation appropriately. Respiratory effort is unlabored. Able to transition from sit to stand unassisted. Ambulates with bilaterally normal heel strike and toe off. Office Procedures Injection Trigger Point Multi Pre-procedure diagnosis: Myofascial pain Post-procedure diagnosis: Myofascial pain Site and number of trigger points: left trapezius, latissimus dorsai, and levator scapula Solution: Total volume administered 20 ml (ropivacaine 0.25% mixed with Kenalog 10 mg). The procedure, its benefits, and its risks were explained to the patient and all questions were answered. Prior to the start of the procedure, a ?time out? was performed to confirm correct patient, procedure, and laterality. Trigger points were identified by manual palpation and marked. The skin was cleaned with Chloraprep. A 1.5 inch 25 G needle was used. Each of the trigger points were approximated and elevated in the direction away from the body. Dry needling then took place for five seconds. Approximately 0.5 ml to 1 ml of injectate was delivered to the trigger point followed by dry needling for five seconds. This process was repeated at each trigger point site. The patient tolerated the procedure well. Post-procedure, breath sounds were equal at both sides of the chest. The patient tolerated the procedure well, without complication. The patient denied any numbness, paresthesias, or weakness. Post-procedure vitals were recorded as part of the nursing discharge note in electronic medical record. Following a period of observation, the patient was discharged in stable condition with written discharge instructions. Trigger Point Multiple: - Trigger point injection =/>3 Joint Injection/Drain Joint Injection/Drain Details: Bilateral intraarticular elbow injections, ultrasound guided Primary Site: other (right elbow) Secondary Site: other (left elbow) Prep: site was prepped using sterile technique Injected: 20 mg of (on each side), Kenalog, with 3 mL of and other (Ropivacaine 0.25%) Approach Used: posterolateral (Ultrasound-guided) Procedure: there was some relief with the local anesthesia Coding Details: An ultrasound image of the injection was taken and stored in the permanent record. - Medium joint (Bilateral) Procedure code (CPT) selection complete Joint Injection/Drain Joint Injection/Drain Details: Left subacromial shoulder injection, under ultrasound guidance Primary Site: left shoulder (Subacromial bursa) Prep: site was prepped using sterile technique Injected: 20 mg of, Kenalog, with 3 mL of and in the subcromial space (0.25% ropivacaine) Approach Used: posterolateral Procedure: The patient tolerated the procedure well Coding Details: An ultrasound image of the injection was taken and stored in the permanent record. - Acromioclavicular with ultrasound guidance (left) Procedure code (CPT) selection complete Results Reviewed Results Reviewed: No imaging is available for review. Assessment & Plan Assessment & Plan (1) Arthritis of elbow: Comment: Bilateral Code(s): M19.029 - Primary osteoarthritis, unspecified elbow (2) Left shoulder pain: Code(s): M25.512 - Pain in left shoulder (3) Myofascial muscle pain: Code(s): M79.18 - Myalgia, other site Plan Patient is status post left subacromial shoulder bursa injection, ultrasound guided bilateral intraarticular elbow injections and left trapezius, latissimus dorsai, and levator scapula trigger point injections today. Patient tolerated procedures well and was discharged home in stable condition with discharge instructions. All questions were answered. Follow-up as needed. Scribed for Dr. Queen by Talib Campbell, medical records assistant, on 12/10/2023. I, Dr. Queen, have personally reviewed and agree with the information entered by the scribe. Coding Level of Care Code Est Pt Level 3 (76070) Diagnoses Arthritis of elbow M19.029 Left shoulder pain M25.512 Myofascial muscle pain M79.18 CPT Codes Details - Trigger Point Multiple: - Trigger point injection =/>3 ([id number]) Coding - 86119 Medium joint: 18827 - Medium joint ([id number]) Coding - Joint 6: - Acromioclavicular with ultrasound guidance ([id number])
[2023-12-10 10:40] VITALS: BP 130/78; RESP 12
== END 2023-12-10 11:18 | disposition home or self-care (01) ==
PROVIDERS: PCP Internal Medicine; Visit Provider Internal Medicine
DX: M25.512 Pain in left shoulder (principal); M19.021 Primary osteoarthritis, right elbow; M19.022 Primary osteoarthritis, left elbow; M79.18 Myalgia, other site
CPT/HCPCS: 20553; 20606; 20611

== ENCOUNTER → 2023-12-10 10:27 | Outpatient (BNVA) | payer OTHER, SELFPAY | PROVIDERS: PCP Internal Medicine; Visit Provider Internal Medicine | DX: M79.18 Myalgia, other site (principal); M25.512 Pain in left shoulder; M19.029 Primary osteoarthritis, unspecified elbow | CPT/HCPCS: 20553; 20606; 20611; J1100; J2795; J3301 ==

== ENCOUNTER 2023-12-16 07:53 | Outpatient (AMB) | payer OTHER, SELFPAY ==
--- NOTE | 2023-12-16 08:23 | A.OFFVIS_ITS ---
Intake Vital Signs 12/16/23 08:25 Height 5 ft 3 in Weight 197 lb BMI 34.9 Intake Visit Reasons: New Prob- Back pain Intake Note: Cherry is a 68 year old female who presents today for a new problem visit with complaints of lower back pain. She complains of sciatic pain. She reports history of surgical treatment, but is unable to explain what kind of surgery was done or when. she explains that she was referred to spine doctor who requires MRI prior to booking. Allergies ibuprofen Allergy (Severe, Verified 12/10/23 10:43) shortness of breath acetaminophen [From Tylenol] Allergy (Verified 12/10/23 10:43) Shortness of Breath can food Allergy (Intermediate, Uncoded 12/10/23 10:43) shortness of breath HPI HPI Comments History of Present Illness Details History of fibromyalgia, rheumatoid arthritis, dementia. I have seen her before for hand pain and EMG. She had told me she has history of neck surgery 2004. She admits to memory impairments. Per medical records, she has history of lumbar surgery, possibly L5-S1. Daughter Adriana was on the phone. Daughter confirmed history of surgery on lumbar and cervical. Recently had fall, 2 weeks ago. Since then pain in lower back, going to left and upwards. Patient additionally says she has headache. She then shows me left sided lower back pain but it goes up to her head. Sometimes she has urinary incontinence. Lives alone, apartment in [place], has a [employer]ILE [employer]ITTING [employer]INE [employer]PER[employer]. Comes to clinic via transportation. Uses cane. Daughter lives in [place] as well, and children. [facility] Medical History (Updated 12/16/23 @ 08:49 by Elizabeth Monique MD) Fall Lumbar spinal stenosis RAÚL (obstructive sleep apnea) Trigger finger Sleep disorder breathing Latent tuberculosis Cough Asthma Fibromyalgia Chronic pain syndrome Myofascial muscle pain Osteoarthritis Fibromyalgia HTN (hypertension) Anxiety Surgical History (Updated 12/16/23 @ 08:36 by Elizabeth Monique MD) History of lumbar surgery H/O Spinal surgery Family History Father Diabetes Mother Acute arthritis Other Mental health disorder Social History Household Members: None Housing: Apartment Do you presently have visiting nurse or other home services: No Alcohol intake: never Comment: pt refusing alarms and camera Patient Tobacco Use Status: Never used Tobacco e-Cigarette/Vaping Use: Never Used Advance Directives Date on File: 02/26/22 service: No Current occupational status: unemployed Cognitive needs: No Hearing needs: No Vision needs: No Physical Exam Vital Signs: BMI result Body Mass Index 34.9 Constitutional: Patient appears to be in no acute distress, well nourished and well developed. Appeared oriented x3. Answered questions appropriately today. MSK: No point tenderness over spinous processes. Indicates left SI region as source of pain. Neurological: Neurologic examination of the upper and lower extremities was nonfocal with intact sensation, muscle stretch reflexes and without focal motor deficits. A bit forgetful. Dunham?s negative bilaterally. Results Reviewed Results Reviewed: I reviewed records from the following: Pain medicine- status post left subacromial shoulder bursa injection, ultrasound guided and bilateral intraarticular elbow injections, ultrasound guided and left trapezius, latissimus dorsai, and levator scapula trigger point injections Neurology-recent diagnosis of advanced dementia Ordering Physician: Edgar Morgan MD Date of Service: 02/25/22 Procedure(s): CT lumbar spine con Accession Number(s): [id number] cc: Edgar Morgan MD~ EXAMINATION: CT LUMBAR SPINE WITHOUT CONTRAST CLINICAL INFORMATION: Fall down stairs. Lumbar spine tenderness. COMPARISON: None TECHNIQUE: Multidetector helical imaging acquired in the axial plane with generation of reformatted acquisitions. This CT examination was performed using dose optimization techniques as appropriate, variously including the following: *Automated exposure control. *Adjustment of mA and/or kV according to patient size (this includes techniques or standardized protocols for targeted exams where dose is matched to indication/reason for exam; i.e. extremities or head). *Use of iterative reconstruction technique. DLP: 473 mGy-cm FINDINGS: The patient is status post previous posterior lumbar fusion with hardware instrumentation from the L4 through the S1 levels. No obvious hardware fracture or periprosthetic lucency is seen. There is a solid arthrodesis demonstrated from the L4 through the S1 levels posterolaterally. There are mild endplate concavities at the L4 level and affecting the superior endplate of L5 which are age-indeterminate. Post laminectomy changes noted at the L4-L5 and L5-S1 levels. There is a mild anterior subluxation at L5-S1 with endplate spurring and vacuum disc phenomenon. Significant foraminal narrowing evident at the L5-S1 level bilaterally. There is an age-indeterminate superior endplate compression deformity as well at the L3 level. Mild retrosubluxation noted at the L2-L3 level with endplate spurring, a diffuse disc bulge, and facet arthropathy resulting in severe central canal stenosis and thecal sac compression. Although not well assessed due to hardware artifacts, there is suspected moderate central canal stenosis at the L3-L4 level. Diffuse disc bulge noted at the L1-L2 level with endplate spurring and facet arthropathy resulting in mild central canal stenosis and [id number] foraminal narrowing. There are mild inferior endplate concavities at the T12 and L1 levels with degenerative Schmorl's nodes. Parapelvic renal cysts noted on the left side. The lung bases are grossly clear. CT/CT lumbar spine wo con IMPRESSION: 1. Multilevel age-indeterminate mild endplate concave deformities in the thoracolumbar spine for which the possibility of a subtle acute compression fracture cannot be ruled out. Status post posterior lumbar instrumented fusion with a solid arthrodesis from the L4 through the S1 levels. 2. Retrosubluxation and spondylosis at the L2-L3 level resulting in severe central canal stenosis. Moderate central canal stenosis suspected at the L3-L4 level. Vacuum disc phenomenon and anterolisthesis with severe bilateral foraminal narrowing at the L5-S1 level. Ordering Physician: Gerald Demarco MD Date of Service: 11/02/22 Procedure(s): CT head/brain wo IV con Accession Number(s): [id number] cc: Gerald Demarco MD~ EXAMINATION: CT HEAD WITHOUT CONTRAST CLINICAL INFORMATION: Acute dizziness COMPARISON: None. TECHNIQUE: Contiguous axial imaging was performed from the skull base to vertex without intravenous contrast. This CT examination was performed using dose optimization techniques as appropriate, variously including the following: * Automated exposure control * Adjustment of mA and/or kV according to patient size (this includes techniques or standardized protocols for targeted exams where dose is matched to indication/reason for exam; i.e. extremities or head) Use of iterative reconstruction technique DLP: 599 mGy-cm. FINDINGS: There is no evidence of acute intracranial hemorrhage or territorial infarction. No abnormal mass effect or midline shift is seen. Alonso to white matter differentiation is well preserved. No extra-axial fluid collections are identified. No hydrocephalus. No significant volume loss. There is no abnormal attenuation within the brain parenchyma. The osseous structures and soft tissues are normal. The mastoid air cells and visualized portions of the paranasal sinuses are well aerated. CT/CT head/brain wo IV con IMPRESSION: No acute intracranial pathology. Ordering Physician: Anum Reis MD Date of Service: 11/03/22 Procedure(s): MR head/brain wo con Accession Number(s): [id number] cc: Anum Reis MD~ EXAMINATION: MR BRAIN WITHOUT CONTRAST CLINICAL INFORMATION: Stroke. COMPARISON: Head CT 11/02/2022. TECHNIQUE: Multiplanar, multisequence imaging of the brain was performed without intravenous contrast. FINDINGS: There is no acute infarction, mass, hemorrhage, or extra-axial collection. The ventricles, sulci, and basilar cisterns are normal in size and configuration. The flow voids of the major intracranial arteries appear intact. The bones and extracranial soft tissues are unremarkable. Postoperative findings are seen in the upper cervical spine related to instrumented fusion. MR/MR head/brain wo con IMPRESSION: No acute infarct, mass lesion, intracranial hemorrhage, or evidence of hydrocephalus. Assessment & Plan Assessment & Plan (1) Lumbar spinal stenosis: Code(s): M48.061 - Spinal stenosis, lumbar region without neurogenic claudication Qualifiers: Neurogenic claudication status: with neurogenic claudication Qualified Code(s): M48.062 - Spinal stenosis, lumbar region with neurogenic claudication (2) History of lumbar surgery: Code(s): Z98.890 - Other specified postprocedural states (3) Fall: Code(s): W19.XXXA - Unspecified fall, initial encounter Qualifiers: Encounter type: initial encounter Qualified Code(s): W19.XXXA - Unspecified fall, initial encounter Plan Chronic neck and back pain. History of lumbar spinal stenosis. Recent fall 2 weeks ago, with worsening of left-sided lower back pain. We will send for lumbar, hip and cervical x-rays to rule out fracture, although low suspicion. Patient requesting for lumbar MRI which would be reasonable to assess status of spinal stenosis. She is wondering about referral to neuro spine after MRI. I did offer to refer her back to home PT. She has just finished last March therefore defers for now. Assessment and plan discussed with patient, and patient was agreeable. All questions were answered thoroughly. Follow-up after MRI. Elizabeth Monique MD, GOLDY Board Certified, [place] Board [employer] Medicine and Rehabilitation (ABPMR) Board Certified, [place] Board of Electrodiagnostic Medicine (ABEM) Orders: Orders XR cervical spine 3V Today W19.XXXA - Unspecified fall, initial encounter XR lumbar spine 2-3V Today W19.XXXA - Unspecified fall, initial encounter XR hip BI w PEL1V Today W19.XXXA - Unspecified fall, initial encounter MR lumbar spine wo con Today M48.061 - Spinal stenosis, lumbar region without neurogenic claudication, W19.XXXA - Unspecified fall, initial encounter, Z98.890 - Other specified postprocedural states Coding Level of Care Code Est Pt Level 4 (31334) Diagnoses Spinal stenosis of lumbar region with neurogenic claudication M48.062 Neurogenic claudication status: with neurogenic claudication History of lumbar surgery Z98.890 Fall, initial encounter W19.XXXA Encounter type: initial encounter
[2023-12-16 08:25] VITALS: BMI 34.9
== END 2023-12-16 09:45 | disposition home or self-care (01) ==
PROVIDERS: PCP Internal Medicine; Visit Provider Physical Medicine & Rehabilitation
DX: M48.062 Spinal stenosis, lumbar region with neurogenic claudication (principal); Z98.890 Other specified postprocedural states; W19.XXXA Unspecified fall, initial encounter
CPT/HCPCS: 99214

== ENCOUNTER 2023-12-16 07:53 | Outpatient (REF) | payer OTHER, SELFPAY ==
--- NOTE | ~2023-12-16 | XR_ITS ---
Exam: XR cervical spine, lumbar spine, PELVIS AND BILATERAL HIPS CLINICAL INFORMATION: Unspecified fall, evaluate fracture COMPARISON: Chest of 11/10/2022, CT lumbar spine 02/25/2022. TECHNIQUE: 3 views of the cervical spine. 3 views of the lumbar spine. AP view of the pelvis as well as AP and frog lateral views of each hip. FINDINGS: Cervical Spine: The bones are diffusely demineralized. Evaluation limited particularly on the lateral view due to large overlying radiopaque devices characteristic of bilateral earrings. Multilevel cervical spondylosis. Postsurgical hardware with interdisc devices at C4-C5, C5-6 and C6-C7 are difficult to evaluate due to overlying presumed jewelry. Visualization further limited due to diffuse bony demineralization. CT scan recommended for further evaluation and better visualization for this patient with pain and history of recent fall. Lumbar Spine: The bones are diffusely demineralized, limiting evaluation. Evaluation further limited due to body habitus and technical factors. Redemonstration of posterior lumbar fusion with hardware devices including rods and screws traversing L4-L5-S1 levels. Degenerative changes in the imaged lower thoracic spine. Advanced multilevel lumbar spondylosis with multilevel loss of disc space height and hypertrophic change. Minimal grade 1 retrolisthesis of L1 on L2. Mild grade 1 retrolisthesis of L2 on L3. Marked anterolisthesis of L5 on S1 difficult to characterize due to overlying bony and soft tissue structures. AP Pelvis and Bilateral Hips: The bones are diffusely demineralized, limiting evaluation. Visualization further limited due to body habitus. Degenerative changes in the bilateral sacroiliac joints. Mild degenerative changes in the bilateral hips. Hip alignment is preserved. XR/XR cervical spine 3V IMPRESSION: 1. Multilevel cervical spondylosis. Postsurgical hardware with interdisc devices at C4-C5, C5-6 and C6-C7. Visualization severely limited due to diffuse bony demineralization and overlying presumed large pieces of jewelry. Visualization further limited due to diffuse bony demineralization. CT scan recommended for further evaluation and better visualization for this patient with pain and history of recent fall. 2. Redemonstration of posterior lumbar fusion with hardware devices including rods and screws traversing L4-L5-S1 levels. 3. Advanced multilevel lumbar spondylosis. 4. Mild degenerative changes in the bilateral hips. 5. Visualization of the lumbar spine and bilateral hips is limited due to diffuse bony demineralization and body habitus. CT scan recommended for further evaluation if there is concern for fracture or other underlying pathology in this patient with history of recent fall.
== END 2023-12-16 07:54 | disposition home or self-care (01) ==
LOC: HO.HOSX 07:53
PROVIDERS: PCP Internal Medicine; Visit Provider Physical Medicine & Rehabilitation
DX: M48.061 Spinal stenosis, lumbar region without neurogenic claudication (principal); Z91.81 History of falling; Z98.890 Other specified postprocedural states
CPT/HCPCS: 72040; 72100; 73521; 99212

== ENCOUNTER 2024-02-21 12:54 | Outpatient (REF) | payer OTHER, SELFPAY ==
--- NOTE | ~2024-02-21 | MR_ITS ---
MR LUMBAR SPINE WITHOUT CONTRAST CLINICAL INFORMATION: Evaluate for worsening spinal stenosis. COMPARISON: Lumbar spine radiographs 12/16/2023. Lumbar spine CT 02/25/2022. TECHNIQUE: MRI of the lumbar spine was obtained using routine sequences without contrast. FINDINGS: There are 5 nonrib-bearing lumbar-type vertebral bodies. Significant artifact from posterior fusion hardware spanning the L4-S1 levels resulting in nondiagnostic assessment of these levels. There is stable grade 2 anterolisthesis of L5 on S1 and there is grade 1 retrolisthesis of L1 on L2 and L2 on L3. Vertebral body heights are maintained. Chronic upper endplate Schmorl's node at L2. There are Modic type I endplate signal changes at T12-L1. There is no additional bone marrow edema. There are no acute fractures. Conus terminates at the L1-L2 level. Spondylitic changes result in mild central canal stenosis at the T10-T11 and T11-T12 levels. T12-L1: A diffuse annular disc bulge and epidural lipomatosis result in moderate central canal stenosis and disc osteophyte and facet arthropathy result in moderate to severe left and moderate right foraminal stenosis. Narrowing of the left subarticular zone. L1-L2: Grade 1 retrolisthesis. Diffuse annular disc bulge and moderate bilateral facet arthropathy, ligamentum flavum thickening, and epidural lipomatosis result in mild to moderate central canal stenosis and moderate bilateral foraminal stenosis. L2-L3: Diffuse annular disc bulge and severe bilateral facet arthropathy, ligamentum flavum thickening, and epidural lipomatosis result in moderate to severe central canal stenosis, severe left subarticular zone stenosis with compression of the traversing left L3 nerve root, and moderate to severe left foraminal stenosis with mass effect on the exiting left L2 nerve root. L3-L4: The junctional level is not diagnostically assessed due to significant artifact from the surgical hardware below this level. Central canal, subarticular zones, and neural foramen are not diagnostically assessed at this level. L4-L5: Postoperative changes following posterior instrument fusion. Central canal, subarticular zones, and neural foramen are not diagnostically assessed at this level. L5-S1: Postoperative changes following posterior instrument fusion. Central canal, subarticular zones, and neural foramen are not diagnostically assessed at this level. Grade 2 anterolisthesis and osteophytic ridging result in bilateral foraminal encroachment. MR/MR lumbar spine wo con IMPRESSION: - This is a limited examination due to significant artifact from the patient's posterior fusion hardware spanning the L4-S1 levels resulting in nondiagnostic assessment of the central canal, subarticular zones, and neural foramen at all these levels. There is stable grade 2 anterolisthesis of L5 on S1 that along with uncovered osteophytic ridging results in bilateral foraminal stenosis that is not well assessed due to artifact. - The junctional L3-L4 level is not diagnostically assessed due to significant artifact from the surgical hardware below this level. The central canal, subarticular zones, and neural foramen are not diagnostically assessed at this level. - At L2-L3, grade 1 retrolisthesis along with advanced multifactorial degenerative changes and epidural lipomatosis result in moderate to severe central canal stenosis, severe left subarticular zone stenosis with compression of the traversing left L3 nerve root, and moderate to severe left foraminal stenosis with mass effect on the exiting left L2 nerve root. - At L1-L2, multifactorial degenerative changes an epidural lipomatosis result in mild to moderate central canal stenosis and moderate bilateral foraminal stenosis. - At T12-L1, multifactorial degenerative changes and epidural lipomatosis result in moderate central canal stenosis, left subarticular zone stenosis, and disc osteophyte and facet arthropathy result in moderate to severe left and moderate right foraminal stenosis. Modic type I endplate signal changes at this level.
== END 2024-02-21 12:55 | disposition home or self-care (01) ==
LOC: HO.MRI 12:54
PROVIDERS: PCP Internal Medicine; Visit Provider Physical Medicine & Rehabilitation
DX: M48.061 Spinal stenosis, lumbar region without neurogenic claudication (principal); W19.XXXA Unspecified fall, initial encounter; Z98.890 Other specified postprocedural states
CPT/HCPCS: 72148

== ENCOUNTER 2024-02-23 13:24 | Outpatient (AMB) | payer OTHER, SELFPAY ==
[2024-02-23 13:26] VITALS: BMI 34.9
--- NOTE | 2024-02-23 13:26 | A.OFFVIS_ITS ---
Vital Signs 02/23/24 13:26 Height 5 ft 3 in Weight 197 lb BMI 34.9 Intake Visit Reasons: new prob/ left RF trigger Intake Note: Cherry 68 yr old - hand dominant female presents today for a new problem visit for her left ring finger. States her finger is catching and locking that started abiut 1 year ago and has worsen. States this is painful especially when making a fist or with heavy lifting. States she has tried OTC topical cream with no help. States she would like to discuss surgery. Allergies ibuprofen Allergy (Severe, Verified 02/23/24 13:36) shortness of breath acetaminophen [From Tylenol] Allergy (Verified 02/23/24 13:36) Shortness of Breath can food Allergy (Intermediate, Uncoded 02/23/24 13:36) shortness of breath HPI HPI new prob/ left RF trigger: Details: Cherry is a 68 year old right hand dominant woman who presents with complaints of left ring finger locking. She complains of painful locking of her left ring finger & her right middle finger. She says this causes difficulty completing her ADLs. She says this has been present for ~1 year now, and found no relief from OTC topical creams. She denies any other treatment options She has a hx of Dementia, memory loss, CPS, Fibromyalgia, RA, and a right carpal tunnel release in 2004. [facility] Medical History (Updated 02/23/24 @ 13:46 by Lj Cain) Fall Lumbar spinal stenosis RAÚL (obstructive sleep apnea) Trigger finger Sleep disorder breathing Latent tuberculosis Cough Asthma Fibromyalgia Chronic pain syndrome Myofascial muscle pain Osteoarthritis Fibromyalgia HTN (hypertension) Anxiety Surgical History History of lumbar surgery H/O Spinal surgery Family History Father Diabetes Mother Acute arthritis Other Mental health disorder Social History Household Members: None Housing: Apartment Do you presently have visiting nurse or other home services: No Alcohol intake: never Comment: pt refusing alarms and camera Patient Tobacco Use Status: Never used Tobacco e-Cigarette/Vaping Use: Never Used Advance Directives Date on File: 02/26/22 service: No Current occupational status: unemployed Cognitive needs: No Hearing needs: No Vision needs: No Review of Systems Const All systems reviewed & are unremarkable except as noted in HPI and below Physical Exam Vital Signs: BMI result Body Mass Index 34.9 Const General: cooperative, healthy appearing and no acute distress Orientation/consciousness: patient oriented x3 HEENT Head: Yes normocephalic and Yes atraumatic Eyes EOM: EOMs intact bilaterally Resp Effort & Inspection: normal respiratory effort and able to speak in complete sentences Cardio Jugular venous distension: no JVD Skin General skin exam: turgor normal Rashes: no rashes Neuro General: patient oriented x3 Extrem Other: Evaluation of Left Upper Extremity: The patient is alert, oriented, and in no acute distress Vascular: Cap refill brisk ROM: She can make a fist and extend all her digits Visible and palpable locking & catching of the left ring finger & right middle finger Only very mildly tender over the a1 good of the left ring finger I checked the extensor tendons over the left ring finger and did not see any subluxation. Skin: No lacerations or abrasions. General: No Ecchymosis. No Erythema or evidence of infection. Nerve Conduction Study: Poor tolerance of test. Further testing aborted. Patient kept moving during NCS. Needle EMG not done. 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 However given poor tolerance of this, correlate clinically and interpret with caution. Elizabeth Monique MD, GOLDY 11/04/23 Psych Appearance: grossly normal Affect: normal affect Attitude: cooperative Assessment & Plan Assessment & Plan (1) Trigger finger, left ring finger: Code(s): M65.342 - Trigger finger, left ring finger Category: Medical (2) Dementia: Comment: Advanced. MMSE 06/16 Code(s): F03.90 - Unspecified dementia, unspecified severity, without behavioral disturbance, psychotic disturbance, mood disturbance, and anxiety Category: Medical (3) Fibromyalgia: Code(s): M79.7 - Fibromyalgia Category: Medical (4) History of carpal tunnel release: Code(s): Z98.890 - Other specified postprocedural states Category: Surgical Plan Assessment & Plan: 1. Left ring finger trigger finger I educated her about this condition I discussed operative and non-operative treatment options The patient would like to proceed with surgery The risks and benefits of operative treatment were discussed with the patient and the patient wishes to proceed with surgery. These risks include, but are not limited to risk of damage to blood vessels, nerves, tendons, infection, recurrence, incomplete relief of preoperative symptoms, persistent pain, possible need for further surgery and the risks associated with regional blocks and anesthesia. The plan is to take the patient to the operating room sometime in the next few weeks for the following procedures: 1. Left ring finger trigger release, under local All of the preoperative paperwork including the consent was reviewed today. All the patient's questions were answered. The patient understands that they will be contacted by our oral surgery assistant soon to schedule this procedure. She would prefer to have an appointment later in the day as she has difficulty sleeping. She denies Diabetes, blood thinners, heart, lung, kidney issues She has asthma, and a Hx of CPS, Fibromyalgia, Dementia, and memory loss She is listed as having an adverse reaction to both Ibuprofen & Tylenol, causing SOB She was asking about what pain medication I would give her 2. Right middle finger locking Will discuss at next visit 3. History of right carpal tunnel release DOS: ~2004, at an outside clinic This was not discussed today. Scribed for Marianna Parr MD by Lj Cain, medical superintendent, on 02/23/24 at 1:45 PM, EST. Coding Level of Care Code New Pt Level 4 (49118) Diagnoses Trigger finger, left ring finger M65.342 Dementia F03.90 Fibromyalgia M79.7 History of carpal tunnel release Z98.890
== END 2024-02-23 13:57 | disposition home or self-care (01) ==
LOC: HO.HOS 13:24
PROVIDERS: PCP Internal Medicine; Visit Provider Orthopaedic Surgery
DX: M65.342 Trigger finger, left ring finger (principal); F03.90 Unspecified dementia, unspecified severity, without behavioral disturbance, psychotic disturbance, mood disturbance, and anxiety; M79.7 Fibromyalgia
CPT/HCPCS: 99214

== ENCOUNTER → 2024-02-23 13:24 | Outpatient (BNVA) | payer OTHER, SELFPAY | PROVIDERS: PCP Internal Medicine; Visit Provider Orthopaedic Surgery | DX: M65.342 Trigger finger, left ring finger (principal); M79.7 Fibromyalgia; F03.90 Unspecified dementia, unspecified severity, without behavioral disturbance, psychotic disturbance, mood disturbance, and anxiety; Z98.890 Other specified postprocedural states | CPT/HCPCS: 99212 ==

== ENCOUNTER 2024-02-28 08:20 | Day surgery (SDC) | payer OTHER, SELFPAY ==
[2024-02-28 10:18] VITALS: BP 107/53; PULSE 91; RESP 18; TEMP 36.4; O2SAT 96; BMI 34.9
--- NOTE | 2024-02-28 10:37 | MHC.SHP ---
Pre-Procedural Eval Section A - 24 Hr Update-Section A only Date of Service: 02/28/24 The patient is an INPATIENT: No Changes since office visit: No Cold of Flu in the past 2 weeks, No New Medical Problems, No Changes in Medication and No Patient answered all questions The patient has been examined within 24 hours of the surgical procedure. The History & Physical has been completed within 30 days and I have reviewed it.: Yes Section B - Complete if H&P > 30 days Chief Complaint: Trigger finger, left ring finger Allergies: Allergies Allergy/AdvReac Type Severity Reaction Status Date / Time ibuprofen Allergy Severe shortness Verified 02/23/24 13:36 of breath acetaminophen [From Tylenol] Allergy Shortness Verified 02/23/24 13:36 of Breath can food Allergy Intermediate shortness Uncoded 02/23/24 13:36 of breath Exam Exam Comment: Left ring finger trigger finger Plan Diagnosis/Plan: Unchanged I have reviewed the history and physical and performed a pertinent physical examination on my patient. No changes have occurred unless specified. Time Spent With Patient Time: Total time managing care of this patient today ____ minutes.
--- NOTE | 2024-02-28 10:38 | W.PM.OPN ---
Operative Note Operative Note Date of Service: 02/28/24 Narrative: Operative Note Preop diagnosis: 1. Left ring finger Trigger finger Postop diagnosis: 1. Left ring finger Trigger finger Procedure: 1. Left ring finger A1 good release Surgeon: Marianna Parr MD Anesthesia: local block using 1% lidocaine with epinephrine Findings: No locking or catching after A1 good release EBL: Less than 5 mL Tourniquet time: None Specimens: None Complications: None Disposition: Brought to recovery room in stable condition Plan: Follow-up for 10-14 days for wound check and suture removal Indications: The patient is 68 years old, with a left ring finger trigger finger that has been unresponsive to nonoperative management. The risks and benefits of operative treatment including but not limited to risk of damage to blood vessels, nerves, tendons, infection, persistent pain, persistent symptoms, recurrence or possible need for additional surgery were discussed with the patient and the patient wishes to proceed with surgery. Procedure: Once consent was obtained a local block was performed in the preop area using a combination of 1% lidocaine with epinephrine. The patient was then brought back to the operating suite and placed on the operative table in supine position. The left upper extremity was prepped and draped in a standard surgical fashion. Once assured that we had a good block, a 1.5 cm oblique incision was made centered over the A1 good of the left ring finger . The incision was made through the skin to the subcutaneous tissues using a #15 blade. Careful dissection was made down to the level of the A1 good using tenotomy scissors, with care being taken to protect the nearby neurovascular structures. A longitudinal incision was made in the A1 good 1st using a #15 blade, then using tenotomy scissors under direct visualization. The A1 good was noted to be thickened. Following our A1 good release, we no longer saw any locking or catching of the digit with flexion and extension. Once satisfied with our A1 good release the wound was copiously irrigated with normal saline and hemostasis was obtained with a brief period of local pressure. The skin edges were reapproximated with some 5.0 nylon suture material and a sterile dressing was applied. The patient appears to have tolerated the procedure well and with no complications. All digits were well vascularized at the conclusion of the case.
[2024-02-28 11:20] VITALS: BP 92/56; PULSE 86; RESP 16; O2SAT 95
--- NOTE | 2024-02-28 11:40 | HO.INF ---
PATIENT WITH 3 PALE FINGERS TO LEFT HAND (MIDDLE, INDEX AND PINKLY FINGER)..... DR. FITZPATRICK IS AWARE AND STATED TO PATIENT TO RETURN TO THE EMERGENCY ROOM IN 3 HOURS AND CALL HER IF COLOR HAS NOT IMPROVED. THIS RN RETOLD THE PATIENT THIS INFORMATION.
== END 2024-02-28 13:15 | disposition home or self-care (01) ==
PROVIDERS: PCP Internal Medicine; Visit Provider Orthopaedic Surgery
PROC: (CPT 26055; principal; 2024-02-28 10:10)
DX: M65.342 Trigger finger, left ring finger (principal); F03.90 Unspecified dementia, unspecified severity, without behavioral disturbance, psychotic disturbance, mood disturbance, and anxiety; M79.7 Fibromyalgia; M06.9 Rheumatoid arthritis, unspecified; G89.4 Chronic pain syndrome; I10 Essential (primary) hypertension; G47.33 Obstructive sleep apnea (adult) (pediatric); J45.909 Unspecified asthma, uncomplicated; Z88.6 Allergy status to analgesic agent; Z88.8 Allergy status to other drugs, medicaments and biological substances; Z98.890 Other specified postprocedural states; Z56.0 Unemployment, unspecified
CPT/HCPCS: 26055; J0171

== ENCOUNTER → 2024-02-28 08:20 | Outpatient (BNV) | payer OTHER, SELFPAY | PROVIDERS: PCP Internal Medicine; Visit Provider Orthopaedic Surgery | DX: M65.342 Trigger finger, left ring finger (principal) | CPT/HCPCS: 26055 ==

== ENCOUNTER 2024-03-07 12:13 | Outpatient (AMB) | payer OTHER, SELFPAY ==
[2024-03-07 12:23] VITALS: BP 144/76; PULSE 92; O2SAT 96; BMI 34.7
--- NOTE | 2024-03-07 12:23 | A.OFFPC_ITS ---
Vital Signs 03/07/24 12:23 Height 5 ft 3 in Weight 196 lb BMI 34.7 BP 144/76 H Blood Pressure Location Rt brachial Position Sitting Pulse 92 Pulse Source Pulse Oximeter Pulse Oximetry (%) 96 Oxygen Delivery Method Room Air Intake Visit Reasons: patient requested sooner appt CX 03/17/24 @ 3pm Allergies ibuprofen Allergy (Severe, Verified 03/07/24 12:27) shortness of breath acetaminophen [From Tylenol] Allergy (Verified 03/07/24 12:27) Shortness of Breath can food Allergy (Intermediate, Uncoded 02/23/24 13:36) shortness of breath Medication List - Last Reconciled 03/07/24 by Federico Yates MD [adult diapers medium Use for incontinence episodes at night.] albuterol sulfate 0.63 mg (3 mL) inhalation QID PRN 90 days albuterol sulfate 2.5 mg (3 mL) inhalation Q4-6H PRN 30 days [bed table As directed] [Blood pressure monitor As directed] capsaicin 0.025% 1 appl topical BID 30 days cyclobenzaprine 10 mg PO BID PRN 90 days disposable gloves Size medium [disposable pads-up to 3/day As directed] doxepin 10 mg PO BEDTIME duloxetine 20 mg PO DAILY 90 days ipratropium-albuterol 0.5 mg-3 mg(2.5 mg base)/3 mL 3 mL inhalation Q6H PRN 30 d ays lisinopril 5 mg PO DAILY 90 days lorazepam 1 mg PO DAILY PRN lorazepam 0.5 mg PO BEDTIME PRN 30 days memantine 5 mg PO QAM 30 days montelukast 10 mg PO DAILY nebulizer and compressor (Comp-Air Nebulizer Compressor) As directed ondansetron HCl 4 mg PO Q8H PRN 30 days pantoprazole 40 mg PO DAILY@0630 [showering chairs As directed] simvastatin 20 mg PO BEDTIME walker As directed Tobacco use date assessed: 03/07/24 Fall risk assessment: No Falls in past year Last assessed Fall Risk: 03/07/24 Dental Screening Dental Screen Date: 03/07/24 Did you have a dental visit in the last 12 months?: No Did you have a dental problem in the last 6 months where you did not have access to dental care?: No Was dental information given to patient?: No HPI patient requested sooner appt CX 03/17/24 @ 3pm HPI Details Patient is 68-year-old female with a history of rheumatoid arthritis, fibromyalgia, cold intolerance, depression, impaired mobility, fluctuating pressure, obesity, urine incontinence, Muscle spasms, difficulty sleeping, allergies, memory disorder, COPD. Came in today with her daughter talk about fibromyalgia She has been [facility] However they are not prescribing any medication for fibromyalgia she tells me Going over her list of medication Patient was notified that she is taking duloxetine 20 mg, however patient says that she has not taken it in 3 years I have sent a refill for the medication she is to take 1 tablet for 2 weeks and then double the dose Patient is also on cyclobenzaprine 10 mg b.i.d. which is helping her with muscle spasms She is severely depressed as well Her daughter says that she is confined in the house because of her impaired m obility She is requesting a motorized wheelchair, I have placed a referral for her to be evaluated by homemaking rehabilitation consultant for that Explained to them that cyclobenzaprine, lorazepam that she is taking through Psychiatry will make her very tired There is a risk of fall especially with impaired mobility. She has already gone through multiple physical therapies at home, I would recommend that she continue exercises at home Currently she uses walker with a seat for mobilization I will not be able to add another medication for fibromyalgia. Patient is to start coming for regular follow-up appointments Medication list reviewed Patient and her daughter was given time to ask questions. [facility] Medical History Fall Lumbar spinal stenosis RAÚL (obstructive sleep apnea) Trigger finger Sleep disorder breathing Latent tuberculosis Cough Asthma Fibromyalgia Chronic pain syndrome Myofascial muscle pain Osteoarthritis Fibromyalgia HTN (hypertension) Anxiety Surgical History History of lumbar surgery H/O Spinal surgery Family History Father Diabetes Mother Acute arthritis Other Mental health disorder Social History Household Members: None Housing: Apartment Do you presently have visiting nurse or other home services: No Alcohol intake: never Comment: pt refusing alarms and camera Patient Tobacco Use Status: Never used Tobacco e-Cigarette/Vaping Use: Never Used Advance Directives Date on File: 02/26/22 service: No Current occupational status: unemployed Cognitive needs: No Hearing needs: No Vision needs: No Questionnaire Thrive Questionnaire Date Thrive assessed: 12/02/23 AUDIT C Alcohol Use Questionnaire (AUDIT-C) 1. How often do you have a drink containing alcohol?: Never 3. How often do you have six or more drinks on one occasion?: Never Total Score: 0 Score Reviewed/Action Taken: Yes MATTHEW-7 AMB Questionnaire MATTHEW-7 Date MATTHEW - 7 assessed: 12/02/23 Source: Developed by Drs. Bj Ingram, oYlanda Glass, Dexter Ferguson and colleagues, with an educational jesus from [employer]. Review of Systems Const Denies chills and Denies fever(s) ENT Denies epistaxis and Denies nasal discharge Card Denies chest pain Resp Denies chest congestion, Denies cough and Denies hemoptysis GI Denies diarrhea Skin/Breast Denies rash Neuro Reports no additional complaints Psych Reports no additional complaints Endo Reports no additional complaints Physical exam (Primary Care) Vital Signs: Last Vital Signs Pulse 92 03/07/24 12:23 BP 144/76 H 03/07/24 12:23 Pulse Ox 96 03/07/24 12:23 Oxygen Delivery Method Room Air 03/07/24 12:23 BMI result Body Mass Index 34.7 Tobacco/Smoking Status: Tobacco use Status Tobacco use date assessed 03/07/24 03/07/24 12:28 Patient Tobacco Use Status Never used Tobacco 03/07/24 12:28 e-Cigarette/Vaping Use Never Used 03/07/24 12:28 Thrive Assessment: Date of Thrive Assessment Date Thrive assessed 12/02/23 03/07/24 12:28 Const Other: Patient is wearing winter jacket even though it is 80 degree temperature of side, came in with walker with a we will General: cooperative, comfortable and no acute distress Orientation/consciousness: patient oriented x3 HENMT Head: Yes normocephalic Eyes General: appearance normal, both eyes and all related structures Neck Neck: Yes supple Resp Effort & Inspection: normal respiratory effort, no cough and no stridor Cardio Rhythm: regular rhythm Heart sounds: S1 normal heart sound present and S2 normal heart sound present Skin General skin exam: turgor normal Neuro General: patient oriented x3, tone normal and moves all extremities Extrem Right lower extremity: no edema Left lower extremity: no edema Assessment and Plan Assessment & Plan (1) Rheumatoid arthritis: Code(s): M06.9 - Rheumatoid arthritis, unspecified Qualifiers: Rheumatoid arthritis location: multiple sites Rheumatoid factor presence: unspecified presence Qualified Code(s): M06.9 - Rheumatoid arthritis, unspecified (2) Major depression, recurrent: Code(s): F33.9 - Major depressive disorder, recurrent, unspecified Qualifiers: Active/Remission status: currently active Major depression episode kae rity: moderate Qualified Code(s): F33.1 - Major depressive disorder, recurrent, moderate (3) Myofascial muscle pain: Code(s): M79.18 - Myalgia, other site (4) Hypertension, essential: Code(s): I10 - Essential (primary) hypertension (5) Environmental allergies: Code(s): Z91.09 - Other allergy status, other than to drugs and biological substances (6) Chronic GERD: Code(s): K21.9 - Gastro-esophageal reflux disease without esophagitis (7) Interstitial lung disease: Code(s): J84.9 - Interstitial pulmonary disease, unspecified (8) Fibromyalgia: Code(s): M79.7 - Fibromyalgia (9) Memory impairment of gradual onset: Code(s): R41.3 - Other amnesia (10) Urine incontinence: Code(s): R32 - Unspecified urinary incontinence Qualifiers: Urinary Incontinence type: mixed stress and urge incontinence Qualified Code(s): N39.46 - Mixed incontinence (11) Bowel incontinence: Code(s): R15.9 - Full incontinence of feces Qualifiers: Fecal incontinence type: fecal urgency Qualified Code(s): R15.9 - Full incontinence of feces; R15.2 - Fecal urgency (12) Obesity due to excess calories: Comment: ,She is moderately obese and this may be contributing to her symptoms of sleep apnea at night. Code(s): E66.09 - Other obesity due to excess calories Qualifiers: Body mass index: BMI 33.0-33.9 Obesity classification: adult class 1 (BMI 30 - 34.9) Serious obesity comorbidity presence: with serious comorbidity Qualified Code(s): E66.09 - Other obesity due to excess calories; Z68.33 - Body mass index [BMI] 33.0-33.9, adult (13) Dementia: Comment: Advanced. MMSE 06/16 Code(s): F03.90 - Unspecified dementia, unspecified severity, without behavioral disturbance, psychotic disturbance, mood disturbance, and anxiety Qualifiers: Dementia type: unspecified type Dementia severity: mild Dementia behavioral or psychological symptom: without behavioral, psychotic, or mood disturbance or anxiety Qualified Code(s): F03.A0 - Unspecified dementia, mild, without behavioral disturbance, psychotic disturbance, mood disturbance, and anxiety (14) Impaired mobility: Code(s): Z74.09 - Other reduced mobility (15) Chronic low back pain: Code(s): M54.50 - Low back pain, unspecified; G89.29 - Other chronic pain Qualifiers: Back pain laterality: bilateral Sciatica presence: without sciatica Qualified Code(s): M54.50 - Low back pain, unspecified; G89.29 - Other chronic pain Plan Patient is 68-year-old female with a history of rheumatoid arthritis, fibromyalgia, cold intolerance, depression, impaired mobility, fluctuating pressure, obesity, urine incontinence, Muscle spasms, difficulty sleeping, allergies, memory disorder, COPD. Came in today with her daughter talk about fibromyalgia She has been seeing Rheumatology at [facility] However they are not prescribing any medication for fibromyalgia she tells me Going over her list of medication Patient was notified that she is taking duloxetine 20 mg, however patient says that she has not taken it in 3 years I have sent a refill for the medication she is to take 1 tablet for 2 weeks and then double the dose Patient is also on cyclobenzaprine 10 mg b.i.d. which is helping her with muscle spasms She is severely depressed as well Her daughter says that she is confined in the house because of her impaired mobility She is requesting a motorized wheelchair, I have placed a referral for her to be evaluated by homemaking rehabilitation consultant for that Explained to them that cyclobenzaprine, lorazepam that she is taking through Psychiatry will make her very tired There is a risk of fall especially with impaired mobility. She has already gone through multiple physical therapies at home, I would recommend that she continue exercises at home Currently she uses walker with a seat for mobilization I will not be able to add another medication for fibromyalgia. Patient is to start coming for regular follow-up appointments Medication list reviewed Patient and her daughter was given time to ask questions. 60 minutes spent in care of this patient including [id number] with patient and her daughter Answering or questions concerns, reviewing chart, charting, coordination of care Orders: Referrals Physical Medicine and Rehabilitation Referral Z74.09 - Other reduced mobility, Z76.89 - Persons encountering health services in other specified circumstances Medications: Changed From ondansetron HCl 4 mg PO Q8H 7 days PRN 14 tabs 0RF nausea and vomiting R11.0 - Nausea To ondansetron HCl 4 mg PO Q8H 30 days PRN 30 tabs 0RF nausea and vomiting R11.0 - Nausea Resumed duloxetine 20 mg PO DAILY 90 days 90 caps 1RF duloxetine 20 mg PO DAILY 30 days 30 caps 3RF Coding Level of Care Code Est Pt Level 5 (96124) Complex EM visit Add On G2211 Diagnoses Rheumatoid arthritis involving multiple sites, unspecified whether rheumatoid factor present M06.9 Rheumatoid arthritis location: multiple sites Rheumatoid factor presence: unspecified presence Moderate episode of recurrent major depressive disorder F33.1 Active/Remission status: currently active Major depression episode severity: moderate Myofascial muscle pain M79.18 Hypertension, essential I10 Environmental allergies Z91.09 Chronic GERD K21.9 Interstitial lung disease J84.9 Fibromyalgia M79.7 Memory impairment of gradual onset R41.3 Mixed stress and urge urinary incontinence N39.46 Urinary Incontinence type: mixed stress and urge incontinence Incontinence of feces with fecal urgency R15.9; R15.2 Fecal incontinence type: fecal urgency Class 1 obesity due to excess calories with serious comorbidity and body mass index (BMI) of 33.0 to 33.9 in adult E66.09; Z68.33 Body mass index: BMI 33.0-33.9 Obesity classification: adult class 1 (BMI 30 - 34.9) Serious obesity comorbidity presence: with serious comorbidity Mild dementia without behavioral disturbance, psychotic disturbance, mood disturbance, or anxiety, unspecified dementia type F03.A0 Dementia type: unspecified type Dementia severity: mild Dementia behavioral or psychological symptom: without behavioral, psychotic, or mood disturbance or anxiety Impaired mobility Z74.09 Chronic bilateral low back pain without sciatica M54.50; G89.29 Back pain laterality: bilateral Sciatica presence: without sciatica
== END 2024-03-07 13:37 | disposition home or self-care (01) ==
PROVIDERS: PCP Internal Medicine; Visit Provider Internal Medicine
DX: M06.9 Rheumatoid arthritis, unspecified (principal); F33.1 Major depressive disorder, recurrent, moderate; J84.9 Interstitial pulmonary disease, unspecified; F03.A0 Unspecified dementia, mild, without behavioral disturbance, psychotic disturbance, mood disturbance, and anxiety; M79.18 Myalgia, other site; I10 Essential (primary) hypertension; Z91.09 Other allergy status, other than to drugs and biological substances; K21.9 Gastro-esophageal reflux disease without esophagitis; M79.7 Fibromyalgia; R41.3 Other amnesia; N39.46 Mixed incontinence; R15.9 Full incontinence of feces
CPT/HCPCS: 99215; G2211

== ENCOUNTER 2024-03-14 08:54 | Outpatient (AMB) | payer OTHER, SELFPAY ==
--- NOTE | 2024-03-14 09:02 | A.OFFVIS_ITS ---
Intake Visit Reasons: PO LT RF trigger 02/28/24 AR Intake Note: Cherry 68 yr old left hand dominant female presents today for her PO LT RF trigger 02/28/24 AR. States locking has resolved and has mild discomfort. Sutures removed and steri strips applied. Allergies ibuprofen Allergy (Severe, Verified 03/14/24 09:03) shortness of breath acetaminophen [From Tylenol] Allergy (Verified 03/14/24 09:03) Shortness of Breath can food Allergy (Intermediate, Uncoded 02/23/24 13:36) shortness of breath HPI HPI PO LT RF trigger 02/28/24 AR: Details: Cherry is a 68 year old right hand dominant woman who presents S/P left ring finger trigger release, DOS: 02/28/24. She says her locking has resolved, and she has some mild discomfort. She says she is concerned that she may have an infection due to her pain. She denies any increased redness or drainage. She has a hx of Dementia, memory loss, CPS, Fibromyalgia, RA, and a right carpal tunnel release in 2004. [facility] Medical History Fall Lumbar spinal stenosis RAÚL (obstructive sleep apnea) Trigger finger Sleep disorder breathing Latent tuberculosis Cough Asthma Fibromyalgia Chronic pain syndrome Myofascial muscle pain Osteoarthritis Fibromyalgia HTN (hypertension) Anxiety Surgical History History of lumbar surgery H/O Spinal surgery Family History Father Diabetes Mother Acute arthritis Other Mental health disorder Social History Household Members: None Housing: Apartment Do you presently have visiting nurse or other home services: No Alcohol intake: never Comment: pt refusing alarms and camera Patient Tobacco Use Status: Never used Tobacco e-Cigarette/Vaping Use: Never Used Advance Directives Date on File: 02/26/22 service: No Current occupational status: unemployed Cognitive needs: No Hearing needs: No Vision needs: No Review of Systems Const All systems reviewed & are unremarkable except as noted in HPI and below Physical Exam Const General: no acute distress and alert Orientation/consciousness: patient oriented x3 Neuro General: patient oriented x3 Extrem Other: The patient was alert oriented and in no acute distress The incision is healing well with no erythema drainage or evidence of infection. Sutures removed and Steri-Strips applied She can make a fist and extend all her digits No locking or catching Sensation is intact Cap refill is brisk Psych Appearance: grossly normal Affect: normal affect Attitude: cooperative Assessment & Plan Assessment & Plan (1) Trigger finger, left ring finger: Code(s): M65.342 - Trigger finger, left ring finger Category: Medical (2) Dementia: Comment: Advanced. MMSE 06/16 Code(s): F03.90 - Unspecified dementia, unspecified severity, without behavioral disturbance, psychotic disturbance, mood disturbance, and anxiety Category: Medical Qualifiers: Dementia behavioral or psychological symptom: without behavioral, psychotic, or mood disturbance or anxiety Dementia severity: mild Dementia type: unspecified type Qualified Code(s): F03.A0 - Unspecified dementia, mild, without behavioral disturbance, psychotic disturbance, mood disturbance, and anxiety (3) Fibromyalgia: Code(s): M79.7 - Fibromyalgia Category: Medical (4) History of carpal tunnel release: Code(s): Z98.890 - Other specified postprocedural states Category: Surgical Plan Assessment & Plan: 1. Left ring finger trigger finger, S/P release DOS: 02/23/24 The patient appears to be doing well post-operatively I educated her about the post-operative course She is concerned she may have an infection due to her pain, but there is no evidence of infection seen today. I reassured her that I did not see any evidence of infection, and that she appears to have more typical postop discomfort. I explained the signs and symptoms of infection, if the patient develops any new or worsening erythema, drainage, pain, or warmth they should contact the clinic or attend the ED. I discussed activity modifications, she is to lift nothing heavier than a cellphone for the next two weeks She will perform gentle ROM exercises at home She should gently massage about the incision site to reduce the risk of hypersensitivity She can follow up prn 2. Right middle finger locking She can contact us about this issue after she feels like she has healed from her left hand surgery. 3. History of right carpal tunnel release DOS: ~2004, at an outside clinic Scribed for Marianna Parr MD by Lj Cain, medical staff manager, on 03/14/24 at 9:10 AM, EST. Coding Level of Care Code Global (05916) Diagnoses Trigger finger, left ring finger M65.342 Mild dementia without behavioral disturbance, psychotic disturbance, mood disturbance, or anxiety, unspecified dementia type F03.A0 Dementia behavioral or psychological symptom: without behavioral, psychotic, or mood disturbance or anxiety Dementia severity: mild Dementia type: unspecified type Fibromyalgia M79.7 History of carpal tunnel release Z98.890
== END 2024-03-14 09:19 | disposition home or self-care (01) ==
PROVIDERS: PCP Internal Medicine; Visit Provider Orthopaedic Surgery
DX: M65.342 Trigger finger, left ring finger (principal); F03.A0 Unspecified dementia, mild, without behavioral disturbance, psychotic disturbance, mood disturbance, and anxiety; M79.7 Fibromyalgia; Z98.890 Other specified postprocedural states
CPT/HCPCS: 99024

== ENCOUNTER → 2024-03-14 08:54 | Outpatient (BNVA) | payer OTHER, SELFPAY | PROVIDERS: PCP Internal Medicine; Visit Provider Physician Assistant | DX: M65.342 Trigger finger, left ring finger (principal); M79.7 Fibromyalgia; F03.A0 Unspecified dementia, mild, without behavioral disturbance, psychotic disturbance, mood disturbance, and anxiety; Z98.890 Other specified postprocedural states | CPT/HCPCS: 99212 ==

== ENCOUNTER 2024-03-17 12:35 | Outpatient (AMB) | payer OTHER, SELFPAY ==
--- NOTE | 2024-03-17 13:43 | A.SPINEOV_ITS ---
Intake Visit Reasons: low back pain Intake Note: Ms. Briggs is here today c/o left side low back pain. MRI done @ [facility]. 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 HPI: This 68-year-old female had a previous L4-S1 fusion done in [facility] more than 10 years ago. She states that she has difficulty walking and standing for more than a year. The pain is debilitating and limits her mobility. She has gained 25 kilos. She is mostly housebound. She ambulates with a walker. Sitting down improves the symptoms. She tried physical therapy without success. She denies weakness or numbness. PMH: Anxiety, fibromyalgia, hypercholesterolemia, cervical fusion, lumbar fusion, left hand surgery Medications: Albuterol, cyclobenzaprine, doxepin, duloxetine, bupropion, lisinopril, lorazepam p.r.n., montelukast, ondansetron, pantoprazole, simvastatin Allergies: Ibuprofen and Tylenol Social history: She lives alone. She has AGENCY SERVICE REPRESENTATIVE assistance. Her daughter lives nearby. Physical Exam: Pleasant obese female. She wears a lumbar brace for back pain. She ambulates with a walker. She can hardly stand or walk before she has to sit down due to pain down both legs. Radiological Studies: MRI done at [facility] on 02/21/2024 is significantly limit the due to artifact but in my opinion shows severe adjacent spinal stenosis L3-4 . She status post L4-S1 lumbar decompression and fusion Impression/Plan: The patient is suffering from neurogenic claudication most likely from adjacent spinal stenosis L3-4. I would like to order a CT of the lumbar spine as the MRI shows a lot of artifacts. I offered her a OlIF L3-L4 with revision of posterior instrumentation L3-S1. She scheduled for 06/28/2024. I will have a another preoperative visit with the patient's 3 weeks prior to surgery. She will also need surgical clearance from her primary care physician. Thank you for allowing me to participate in your patients care. 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
== END 2024-03-17 14:09 | disposition home or self-care (01) ==
PROVIDERS: PCP Internal Medicine; Visit Provider Neurological Surgery
DX: M48.061 Spinal stenosis, lumbar region without neurogenic claudication (principal); M51.36 Other intervertebral disc degeneration, lumbar region
CPT/HCPCS: 99204

== ENCOUNTER → 2024-03-17 12:35 | Outpatient (BNVA) | payer OTHER, SELFPAY | PROVIDERS: PCP Internal Medicine; Visit Provider Neurological Surgery | DX: M48.061 Spinal stenosis, lumbar region without neurogenic claudication (principal); M51.36 Other intervertebral disc degeneration, lumbar region | CPT/HCPCS: 99202 ==

== ENCOUNTER 2024-03-30 08:48 | Outpatient (AMB) | payer OTHER, SELFPAY ==
--- OUTSIDE RECORDS SUMMARY | 2024-03-24 11:06 | XMS_ITS | Continuity of Care Document ---
Author Organization [facility] ter Address [address] [place] [address]- Care Team Providers Care Solution Sales Senior Executive Name Role Phone Milan JOHNSON, Asma Primary Care Physician Encounter [facility] Date(s): 03/14/24 - 03/14/[address] [address]- Encounter Diagnosis Contusion of left leg(Final) - 03/14/24 Discharge Disposition: A-D/C Home Attending Physician: Song Cabral MD Admitting Physician: Song Cabral MD Referring Physician: Not on Staff, Referring MD Allergies, Adverse Reactions, Alerts Substance Reaction Severity Status ibuprofen Shortness of breath Active Tylenol Shortness of breath Anaphylaxis Persistent Severe Active Motrin 1 Anaphylaxis Active 1Tolerates Meloxicam Immunizations Given and Recorded Vaccine Date Status Refusal Reason SARS-CoV-2 mRNA (hkskwbx-ggek-wcdcp) vax 04/22/22 Recorded SARS-CoV-2 mRNA (emyosow-xcih-jxwbo) vax 03/23/22 Recorded pneumococcal 23-valent vaccine 02/27/19 Given tetanus/diphtheria/pertussis, acel(Tdap) 02/06/19 Given Medications Abdominal Binder Abdominal Binder, 1, Topically, Wednesday through Wednesday, # 1 each, Refills 0, Tot. 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, 08/08/20 16:56:00 EDT, Supply Start Date: 08/08/20 Status: Ordered albuterol 0.083% inhalation solution 3 mL, Inhalation, Every 6 hours, PRN NEEDED FOR WHEEZING, # 90 mL, 0 Refills, [facility] #[id number], 153, cm, 07/18/21 11:26:00 EDT, Height, 84, kg, 07/31/20 17:07:00 EDT, Dry Weight Start Date: 08/01/21 Status: Ordered albuterol-ipratropium 3 mg-0.5 mg/3 ml inhalation solution 3 mL, Neb, 4 times a day, PRN Wheezing/Shortness of Breath, for use with nebulizer, # 360 mL, 11 Refills, Maintenance, 07/18/21 11:54:00 EDT, Solution, [facility] #[id number], Partial fill upon patient request if the [...] 11 Refills, Maintenance, 07/18/21 11:52:00 EDT, Cream, [facility] #[id number], 1 applicator Topically 3 times a day,PRN:back [...] Refills, Maintenance, 08/04/21 9:55:00 EDT, EC Capsule, [facility] #[id number], Partial fill upon patient request if the prescription is for a schedule II opioid drug., 153, cm, 07/18/21... Start Date: 08/04/21 Status: Ordered gabapentin 300 mg oral capsule 300 mg, 1, capsule, By Mouth, Daily at bedtime, # 30 capsule, Refills 11, Tot. Refills 11, Maintenance, 07/18/21 12:00:00 EDT, Route to Pharmacy Electronically, [facility] #[id number], Partial fill upon patient request if the prescription is for... Start Date: 07/18/21 Status: Ordered HYDROmorphone Inj 0.5 mg, Injection, Intramuscular, Once, Routine, 03/14/24 20:00:00 EDT, Stop date 03/14/24 20:00:00EDT Start Date: 03/14/24 Stop Date: 03/14/24 Status: Completed lisinopril 5 mg oral tablet 1, tablet, By Mouth, 2 times a day, # 60 tablet, Refills 0, Route to Pharmacy Electronically, [facility] #[id number], 153, cm, 08/18/21 12:15:00 EDT, Height, 84, [...] 07/18/21 11:56:00 EDT, Route to Pharmacy Electronically, [facility] #[id number], 153, cm, 07/18/21 11:26:00 EDT, Height, 84, kg... Start Date: 07/18/21 Status: Ordered multivitamin Multiple Vitamins oral capsule 1 capsule, By Mouth, Daily, # 30 capsule, 11 Refills, Maintenance, 08/14/21 18:41:00 EDT, Capsule, [facility] #[id number], 1 capsule By Mouth Daily, 153, cm, [...] tablet, 0 Refills, Maintenance, 11/19/2114:33:00 EST, Tablet, [facility] #[id number], Partial fill upon patient request if the [...] capsule, 3 Refills, Maintenance, 08/04/22 14:29:00 EDT, [facility], Partial fill upon patient request if [...] 07/18/21 11:52:00 EDT, Route to Pharmacy Electronically, [facility] #[id number], 153, cm, 07/18/21 11:26:00 EDT, Height, 84, [...] tablet, 11 Refills, Maintenance, 07/18/21 11:57:00 EDT, [facility] #[id number], 153, cm, 07/18/21 11:26:00 EDT, Height, 84, [...] Exam Date Time Procedure Performing Provider Status 03/14/24 6:44 PM Knee 1 or 2 Views Left Leonor Guillory (Verified) Notes: (Knee 1 or 2 Views Left) Reason For Exam: fall, landing on L knee;Trauma RESULT: Knee 1 or 2 Views Left Knee 1 or 2 Views Left, 2 views Hx of Present Illness: falls; Reason: Trauma; fall, landing on L knee; Clinical Question(s): Fracture COMPARISON: 08/28/2022 FINDINGS: No evidence of fracture or dislocation. Mild tricompartmental osteoarthritis is unchanged IMPRESSION: No acute findings WSN: [id number] Ordering Physician: Song Cabral Dictated By: Jovanni Khan MD Dictated Date/Time: 03/14/24 6:48 pm Reviewed By: Jovanni Khan MD Signed By: Jovanni Khan MD Signed Date/Time: 03/14/24 6:48 pm Transcribed By: COLETTE Transcribed Date/Time: 03/14/24 6:46 pm * Exam Date Time Procedure Performing Provider Status 03/14/24 6:44 PM XR Femur 2 Views Left Pastora , Porfirio; Au th (Verified) Notes: (XR Femur 2 Views Left) Reason For Exam: fall, landing on L knee;Trauma RESULT: Femur 2 Views Left Femur 2 Views Left, 2 views Hx of Present Illness: falls; Reason: Trauma; fall, landing on L knee; Clinical Question(s): Fracture COMPARISON: None. FINDINGS: No evidence of femur fracture. IMPRESSION: No evidence of fracture WSN: [id number] Ordering Physician: Song Cabral Dictated By: Jovanni Khan MD Dictated Date/Time: 03/14/24 6:46 pm Reviewed By: Jovanni Khan MD Signed By: Jovanni Khan MD Signed Date/Time: 03/14/24 6:46 pm Transcribed By: COLETTE Transcribed Date/Time: 03/14/24 6:45 pm Vital Signs Most recent to oldest [Reference Range]: 1 2 Oxygen Saturation [94-100 %] 95 % (03/14/24 5:39 PM) Pulse Rate [55-90 bpm] 88 bpm (03/14/24 5:39 PM) Blood Pressure [90-138/55-84 mm Hg] 153/ 60mm Hg *H* (03/14/24 5:39 PM) Respiratory Rate [16-30 br/min] 18 br/mi n (03/14/24 7:17 PM) 20 br/min (03/14/24 5:39 PM) Temperature [96.8-100.4 DegF] 97.8 DegF (03/14/24 5:39 PM) Mode of Delivery (Oxygen) Room air (03/14/24 5:39 PM) Blood pressure sites Arm, left (03/14/24 5:39 PM) Temperature Route Oral (03/14/24 5:39 PM) Social History Social History Type Response Smoking Status Never (less than 100 in lifetime) entered on: 12/05/20 Sex Female Patient Care team information Care Team Personnel Name: Christa Villalta Position: [facility] RN Member Role: Primary Care Nurse Name: Lori Toure RN Position: [facility] RN Member Role: Primary Care Nurse Name: Shelia Dallas RN Position: [facility] DX BOARD OPERATOR No Tools Member Role: Primary Care Nurse Name: Federico Yates MD Position: [facility] Physician - Primary Care Member Role: PCP Address: Address: [address] [place] [address]- Name: Sonya Harrell RN Position: [facility] RN Member Role: Primary Care Nurse Care Team Related Persons Name: KACIEDENISHA BRANDON Address: [address] [place] [address]
--- NOTE | 2024-03-30 09:24 | MHC.PC.OV ---
Intake Visit Reasons: Please call daughter's cell [phone] Allergies ibuprofen Allergy (Severe, Verified 03/30/24 09:24) shortness of breath acetaminophen [From Tylenol] Allergy (Verified 03/30/24 09:24) Shortness of Breath can food Allergy (Intermediate, Uncoded 02/23/24 13:36) shortness of breath Medication List - Last Reconciled 03/30/24 by Federico Yates MD [adult diapers medium Use for incontinence episodes at night.] albuterol sulfate 0.63 mg (3 mL) inhalation QID PRN 90 days albuterol sulfate 2.5 mg (3 mL) inhalation Q4-6H PRN 30 days [bed table As directed] [Blood pressure monitor As directed] capsaicin 0.025% 1 appl topical BID 30 days cyclobenzaprine 10 mg PO BID PRN 90 days disposable gloves Size medium [disposable pads-up to 3/day As directed] doxepin 10 mg PO BEDTIME duloxetine 20 mg PO DAILY 90 days ipratropium-albuterol 0.5 mg-3 mg(2.5 mg base)/3 mL 3 mL inhalation Q6H PRN 30 days lisinopril 5 mg PO DAILY 90 days lorazepam 1 mg PO DAILY PRN lorazepam 0.5 mg PO BEDTIME PRN 30 days memantine 5 mg PO QAM 30 days montelukast 10 mg PO DAILY nebulizer and compressor (Comp-Air Nebulizer Compressor) As directed ondansetron HCl 4 mg PO Q8H PRN 30 days pantoprazole 40 mg PO DAILY@0630 [showering chairs As directed] simvastatin 20 mg PO BEDTIME walker As directed Tobacco use date assessed: 03/30/24 Fall risk assessment: No Falls in past year Last assessed Fall Risk: 03/30/24 Dental Screening Dental Screen Date: 03/30/24 Did you have a dental visit in the last 12 months?: No Did you have a dental problem in the last 6 months where you did not have access to dental care?: No Was dental information given to patient?: No HPI Please call daughter's cell [phone] HPI Details Patient was evaluated by Dr. Manuel Cruz Neurosurgery at [facility] on 17 of March Consultation report reviewed patient will need lumbar spine surgery at the level of S1-L4. She did had surgery at that level in [facility] 10 years ago. However her symptoms are now getting worse she is having recurrent falls because of claudication and weakness in her legs Her surgery date is May 16 Patient's daughter who speaks fluent Malagasy tells me that they need help with pain management until the date of surgery Patient is taking oxycodone only as needed. She is also taking other medications we went over the list I have notified daughter that lorazepam should not be taken if patient take oxycodone I have sent 30 tablets of oxycodone if she needed more for next month I will send that for her. She also need letter filled for housing authorities, patient need apartment on the ground floor Daughter is requesting if we can attach Dr. Manuel Cruz consultation with the paperwork. Paperwork will be ready tomorrow patient was notified. [facility] Medical History Fall Lumbar spinal stenosis RAÚL (obstructive sleep apnea) Trigger finger Sleep disorder breathing Latent tuberculosis Cough Asthma Fibromyalgia Chronic pain syndrome Myofascial muscle pain Osteoarthritis Fibromyalgia HTN (hypertension) Anxiety Surgical History History of lumbar surgery H/O Spinal surgery Family History Father Diabetes Mother Acute arthritis Other Mental health disorder Social History Household Members: None Housing: Apartment Do you presently have visiting nurse or other home services: No Alcohol intake: never Comment: pt refusing alarms and camera Patient Tobacco Use Status: Never used Tobacco e-Cigarette/Vaping Use: Never Used Advance Directives Date on File: 02/26/22 service: No Current occupational status: unemployed Cognitive needs: No Hearing needs: No Vision needs: No Questionnaire Thrive Questionnaire Date Thrive assessed: 12/02/23 AUDIT C Alcohol Use Questionnaire (AUDIT-C) 1. How often do you have a drink containing alcohol?: Never 3. How often do you have six or more drinks on one occasion?: Never Total Score: 0 Score Reviewed/Action Taken: Yes MATTHEW-7 AMB Questionnaire MATTHEW-7 Date MATTHEW - 7 assessed: 12/02/23 Source: Developed by Yolanda Henderson B.W. Quan, Dexter Ferguson and colleagues, with an educational jesus from [employer]. Review of Systems Const Denies chills and Denies fever(s) ENT Denies epistaxis and Denies nasal discharge Card Denies chest pain Resp Denies chest congestion, Denies cough and Denies hemoptysis GI Denies diarrhea and Denies nausea Skin/Breast Denies rash Neuro Reports no additional complaints Psych Reports no additional complaints Endo Reports no additional complaints Physical exam (Primary Care) Tobacco/Smoking Status: Tobacco use Status Tobacco use date assessed 03/30/24 03/30/24 09:25 Patient Tobacco Use Status Never used Tobacco 03/30/24 09:25 e-Cigarette/Vaping Use Never Used 03/30/24 09:25 Thrive Assessment: Date of Thrive Assessment Date Thrive assessed 12/02/23 03/30/24 09:25 Telehealth Telehealth Telehealth Platform: [employer]leas Location of provider rendering services: practice address Location of patient: address on file Patient Identification confirmed using: Name, : Yes Telehealth method: voice only Patient verbally consented to treatment: Yes Patient verbally consented to billing insurance company: Yes Patient informed of any privacy concerns related to visit: Yes Minutes spent on Phone/Video with Pt.: 14 Assessment and Plan Assessment & Plan (1) Lumbar spinal stenosis due to adjacent segment 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 Manuel Cruz Neurosurgery at [facility] on 17 of March Consultation report reviewed patient will need lumbar spine surgery at the level of S1-L4. She did had surgery at that level in [facility] 10 years ago. However her symptoms are now getting worse she is having recurrent falls because of claudication and weakness in her legs Her surgery date is May 16 Patient's daughter who speaks fluent Malagasy tells me that they need help with pain management until the date of surgery Patient is taking oxycodone only as needed. She is also taking other medications we went over the list I have notified daughter that lorazepam should not be taken if patient take oxycodone I have sent 30 tablets of oxycodone if she needed more for next month I will send that for her. She also need letter filled for housing authorities, patient need apartment on the ground floor Daughter is requesting if we can attach Dr. Manuel Cruz consultation with the paperwork. Paperwork will be ready tomorrow patient was notified. Medications: New oxycodone Partial Fill upon patient request. 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
== END 2024-03-30 09:50 | disposition home or self-care (01) ==
PROVIDERS: PCP Internal Medicine; Visit Provider Internal Medicine
DX: M48.061 Spinal stenosis, lumbar region without neurogenic claudication (principal); M51.36 Other intervertebral disc degeneration, lumbar region; Z74.09 Other reduced mobility; R29.6 Repeated falls
CPT/HCPCS: 99442

== ENCOUNTER 2024-05-01 14:42 | Outpatient (REF) | payer OTHER, SELFPAY ==
--- NOTE | ~2024-05-01 | CT_ITS ---
EXAMINATION: CT LUMBAR SPINE WITHOUT CONTRAST CLINICAL INFORMATION: Lumbar region spinal stenosis. COMPARISON: CT scan of lumbar spine on 02/25/2022, MRI of lumbar spine on 02/21/2024 TECHNIQUE: Multiple 2.0 and 1.5 mm axial images of the lumbar spine were obtained from lower T12 to S1 levels without IV contrast enhancement. Bone window and soft tissue window images were reconstructed. Coronal and Sagittal bone window images were also reconstructed from the axial image data. This CT examination was performed using dose optimization techniques as appropriate, variously including the following: *Automated exposure control *Adjustment of mA and/or kV according to patient size (this includes techniques or standardized protocols for targeted exams where dose is matched to indication/reason for exam; i.e. extremities or head) *Use of iterative reconstruction technique DLP: 627.53 mGy-cm FINDINGS: There is mild superior T12 vertebral compression fracture. T12/L1: Bony structures are intact with normal alignment. Intervertebral disc height is normal with vacuum disc phenomenon. Bilateral neuroforamina are patent. Bilateral apophyseal joints are intact with normal alignment. L-1/L-2: There is mild chronic superior L1 compression collapse fracture. There is mild central superior L2 vertebral endplate compression fracture. There is normal alignment. Intervertebral disc height is normal. Bilateral neuroforamina are patent. Bilateral apophyseal joints are intact with normal alignment. Bilateral apophyseal joints show loss of joint space, sclerosis, facet hypertrophy and osteophytosis. L2/L3: Bony structures are intact with normal alignment. Intervertebral disc height is normal with vacuum disc phenomenon. Bilateral neuroforamina are markedly stenosed. There is moderate spinal stenosis due to impingement by hypertrophic ligamentum flavum. Bilateral apophyseal joints are intact with normal alignment. Bilateral apophyseal joints show loss of joint space, sclerosis, facet hypertrophy and osteophytosis. L3/L4: Bony structures are intact with normal alignment. Intervertebral disc height is normal. Bilateral neuroforamina are patent. Bilateral apophyseal joints are intact with normal alignment. Bilateral apophyseal joints show loss of joint space, sclerosis, facet hypertrophy and osteophytosis. L4/L5: There are bilateral L5 laminectomies, resection of spinous process, posterior spinal fixation with transpedicular screws and vertical bars. Bony structures are intact with normal alignment. Intervertebral disc height is normal. Bilateral neuroforamina are patent. Bilateral apophyseal joints are intact with normal alignment. L5/S1: There is marked anterior L5 on S1 displacement by 0.9 cm, bilateral L5 pars interarticulares bony defects. Bilateral L5 laminectomies and resection of spinous process, posterior spinal fixation with transpedicular screws and vertical bars are seen. There is mild concave depression fracture of superior L5 vertebral endplate. Intervertebral disc height is severely reduced with extensive vacuum disc phenomenon. Bilateral neuroforamina are patent. Bilateral apophyseal joints are intact with normal alignment. CT/CT lumbar spine wo IV con IMPRESSION: 1. Interval development of Mild chronic superior T12, and L1 vertebral compression fractures, also not evident on more recent MRI of lumbar spine. 2. Unchanged Mild central superior L2 vertebral endplate compression fracture. 3. Unchanged Mild concave depression fracture of superior L5 vertebral endplate. 4. Unchanged grade 2 L5-S1 anterolisthesis, bilateral L5 spondylolysis, severe L5-S1 degenerative lumbar disc disease or status post discectomy. 5. Unchanged status post Bilateral L5 laminectomies and resection of spinous process, posterior L4-S1 spinal fixation with transpedicular screws and vertical bars. 6. Unchanged Moderate spinal stenosis at L2/L3 due to impingement by hypertrophic ligamentum flavum. 7. Unchanged Marked bilateral L2/L3 neural foraminal stenosis.
== END 2024-05-01 14:43 | disposition home or self-care (01) ==
LOC: HO.CT 14:42
PROVIDERS: PCP Internal Medicine; Visit Provider Neurological Surgery
DX: M48.061 Spinal stenosis, lumbar region without neurogenic claudication (principal); M51.36 Other intervertebral disc degeneration, lumbar region
CPT/HCPCS: 72131

== ENCOUNTER 2024-05-05 14:26 | Outpatient (AMB) | payer OTHER, SELFPAY ==
--- NOTE | 2024-05-05 14:35 | A.SPINEOV_ITS ---
Intake Visit Reasons: Discuss Surgery Intake Note: Ms. 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 She scheduled to undergo an L3-4 OLIF and revision of posterior instrumentation L3- S1. She is originally from [facility] and wanted me to speak to her son. I explained the surgery and approach to the son. I discussed my experience with this type of procedure. The goal is to get her walking by relieving the neurogenic claudication symptoms. We discussed the expected postoperative course. I also discuss in detail the difficulty that can arise with the removal of the old instrumentation. We are dealing with a very outdated system. All questions were answered satisfactorily. She scheduled for 05/16/2024. Thank you for allowing me take care of this patient. 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
== END 2024-05-05 15:35 | disposition home or self-care (01) ==
PROVIDERS: PCP Internal Medicine; Visit Provider Neurological Surgery
DX: M48.061 Spinal stenosis, lumbar region without neurogenic claudication (principal); M51.36 Other intervertebral disc degeneration, lumbar region
CPT/HCPCS: 99213

== ENCOUNTER → 2024-05-05 14:26 | Outpatient (BNVA) | payer OTHER, SELFPAY | PROVIDERS: PCP Internal Medicine; Visit Provider Neurological Surgery | DX: M48.061 Spinal stenosis, lumbar region without neurogenic claudication (principal); M51.36 Other intervertebral disc degeneration, lumbar region | CPT/HCPCS: 99212 ==

== ENCOUNTER 2024-05-16 07:08 | Inpatient (IN) | payer OTHER, SELFPAY ==
[2024-05-02 12:10] VITALS: BMI 34.0
[2024-05-02 12:15] VITALS: BP 126/67; PULSE 88; RESP 20; O2SAT 96
[2024-05-02 13:56] LABS: Hematocrit 39.7 % (37.0-47.0); Hemoglobin 12.7 g/dl (12.0-16.0); Mean Corpuscular Hemoglobin 28.1 pg (27.0-33.0); Mean Corpuscular Volume 87.8 fL (80.0-98.0); Red Blood Count 4.52 X10*6/uL (4.20-5.50)
[2024-05-02 13:58] LABS: PLT CLUMP 1; Red Cell Distribution Width 14.8 % (11.0-16.0)
[2024-05-02 13:59] LABS: PLT ABN DIST 1
[2024-05-02 14:18] LABS: Platelet Count 215 X10*3/uL (160-400); White Blood Count 6.9 X10*3/uL (4.8-10.8)
[2024-05-02 14:37] LABS: Anion Gap 13 (12-20); Blood Urea Nitrogen 15 mg/dL (9-16); Calcium 9.7 mg/dL (8.4-10.2); Carbon Dioxide 21 mmol/L (22-29); Chloride 110 mmol/L (96-108); Creatinine Clr Calc Pharmacy 81.5; Estimated Glomerular Filt Rate > 60; Glucose Random 135 mg/dL (60-115); Potassium 3.8 mmol/L (3.3-5.1); Sodium 140 mmol/L (135-145)
[2024-05-16] VITALS (13 sets, daily range): BP systolic 119–157; BP diastolic 62–99; PULSE 78–92; RESP 6–23; TEMP 36.1–36.8; O2SAT 95–99; BMI 39.0
--- NOTE | ~2024-05-16 | XR_ITS ---
EXAMINATION: XR LUMBOSACRAL SPINE CLINICAL INFORMATION: Postoperative examination; pain. COMPARISON: Portions of the MRI lumbar spine dated 02/21/2024; lumbar spine radiographs dated 12/16/2023. TECHNIQUE: AP and crosstable lateral views of the lumbar spine are submitted, together with a lateral view of the lumbosacral junction. FINDINGS: There is bony demineralization. There have been prior L4-L5 and L5-S1 posterior fusions, with L4-L5 discectomy. No hardware failure or loosening is seen. There is an intact L4-L5 disc prosthesis. No acute fracture or spondylolisthesis is seen. The posterior elements are intact. The paravertebral soft tissues are unremarkable, without gas or foreign body. Left abdominal phleboliths are again seen. XR/XR lumbar spine 2-3V IMPRESSION: There is well-maintained alignment status-post L4-L5 and L5-S1 posterior fusions, with L4-L5 discectomy. No hardware failure or loosening is seen.
--- NOTE | ~2024-05-16 | FL_ITS ---
EXAMINATION: XR FLUOROSCOPY WITH IMAGES CLINICAL INFORMATION: L3-L4 OLIF. COMPARISON: None available. TECHNIQUE: Fluoroscopy Supervised By: Dr. Gold Pulido. Fluoroscopy Time: 43.3 sec. Cumulative Dose: 33.053 mGy. DAP: 11.645 Gycm2. Images: 6. FINDINGS: Intraoperative fluoroscopy and spot films were performed during a procedure in the OR. Please correlate with Dr. Abraham's report for complete details. FL/FL guidance in OR IMPRESSION: Intraoperative fluoroscopy and spot films were obtained. Please see Leigh's report for complete details.
--- NOTE | 2024-05-16 07:08 | ECG_ITS ---
Test Reason : pre op Blood Pressure : / mmHG Vent. Rate : 080 BPM Atrial Rate : 080 BPM P-R Int : 144 ms QRS Dur : 070 ms QT Int : 380 ms P-R-T Axes : 036 013 058 degrees QTc Int : 438 ms Normal sinus rhythm Normal ECG No previous ECGs available Referred By: Kaitlin eVga Electronically Signed By:Cristobal Cabrera
--- NOTE | 2024-05-16 07:23 | MHC.SHP ---
Pre-Procedural Eval Section A - 24 Hr Update-Section A only Date of Service: 05/16/24 The patient is an INPATIENT: No The patient has been examined within 24 hours of the surgical procedure. The History & Physical has been completed within 30 days and I have reviewed it.: No Section B - Complete if H&P > 30 days Chief Complaint: s/p L3-4 OLIF and revision of posterior instrument Allergies: Allergies Allergy/AdvReac Type Severity Reaction Status Date / Time acetaminophen [From Tylenol] Allergy Severe Shortness Verified 05/16/24 07:19 of Breath ibuprofen Allergy Severe shortness Verified 05/16/24 07:19 of breath canned food Allergy Intermediate Shortness Uncoded 05/16/24 07:19 of Breath Review of Systems Sugical H&P ROS: Negative: Constitution, Cardiovascular, Respiratory, Neurological, Psychiatric, Hem-Onc, Allergic/Immunologic, Gastrointestinal, Genitourinary, Musculoskeletal, Integumentary, Endocrine and Eyes/Ears/Nose/Throat Exam Surgical H&P Exam: Normal: HEENT, Normal: Heart, Normal: Lungs, Normal: Extremities, Normal: Abdomen, Normal: Skin and Normal: Neurological (awake, alert,oriented x 3 ) Plan Diagnosis/Plan: Unchanged L3-4 oblique lumbar interbody fusion with revision of posterior instrumentation Time Spent With Patient Time: Total time managing care of this patient today _7___ minutes.
--- OUTSIDE RECORDS SUMMARY | 2024-05-16 07:26 | XMS_ITS | Continuity of Care Document ---
Author Organization [facility] Address [address] [place] [address]- Care Team Providers Care Installer Molding And Trim Name Role Phone Milan JOHNSON, Asma Primary Care Physician Encounter 04/04/24 - 05/03/24 [facility] [address] [place] [id number]- Discharge Disposition: GOALS MET Allergies, Adverse Reactions, Alerts Substance Reaction Severity Status ibuprofen Shortness of breath Active Motrin 1 Anaphylaxis Active Tylenol Shortness of breath Anaphylaxis Persistent Severe Active 1Tolerates Meloxicam Immunizations Given and Recorded Vaccine Date Status Refusal Reason SARS-CoV-2 mRNA ([id number]-rkde-[id number]) vax 04/22/22 Recorded SARS-CoV-2 mRNA (aqyschh-cyiy-yzzmk) vax 03/23/22 Recorded pneumococcal 23-valent vaccine 02/27/19 Given tetanus/diphtheria/pertussis, acel(Tdap) 02/06/19 Given Medications Abdominal Binder Abdominal Binder, 1, Topically, Wednesday through Wednesday, # 1 each, Refills 0, Tot. 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, 08/08/20 16:56:00 EDT, Supply Start Date: 08/08/20 Status: Ordered albuterol 0.083% inhalation solution 3 mL, Inhalation, Every 6 hours, PRN NEEDED FOR WHEEZING, # 90 mL, 0 Refills, [facility] #[id number], 153, cm, 07/18/21 11:26:00 EDT, Height, 84, kg, 07/31/20 17:07:00 EDT, Dry Weight Start Date: 08/01/21 Status: Ordered albuterol-ipratropium 3 mg-0.5 mg/3 ml inhalation solution 3 mL, Neb, 4 times a day, PRN Wheezing/Shortness of Breath, for use with nebulizer, # 360 mL, 11 Refills, Maintenance, 07/18/21 11:54:00 EDT, Solution, [facility] #[id number], Partial fill upon patient request if the [...] 11 Refills, Maintenance, 07/18/21 11:52:00 EDT, Cream, [facility] #[id number], 1 applicator Topically 3 times a day,PRN:back [...] Refills, Maintenance, 08/04/21 9:55:00 EDT, EC Capsule, [facility] #[id number], Partial fill upon patient request if the prescription is for a schedule II opioid drug., 153, cm, 07/18/21... Start Date: 08/04/21 Status: Ordered gabapentin 300 mg oral capsule 300 mg, 1, capsule, By Mouth, Daily at bedtime, # 30 capsule, Refills 11, Tot. Refills 11, Maintenance, 07/18/21 12:00:00 EDT, Route to Pharmacy Electronically, [facility] #[id number], Partial fill upon patient request if the prescription is for... Start Date: 07/18/21 Status: Ordered lisinopril 5 mg oral tablet 1, tablet, By Mouth, 2 times a day, # 60 tablet, Refills 0, Route to Pharmacy Electronically, [facility] #[id number], 153, cm, 08/18/21 12:15:00 EDT, Height, 84, kg, 07/31/20 17:07:00 EDT, Dry Weight Start Date: 09/04/21 Status: Ordered LORazepam 1 mg oral tablet 1 tablet = 1 mg, By Mouth, Daily at bedtime, PRN as needed for anxiety, [facility] PRN anxiety, # 3 tablet, [...] 07/18/21 11:56:00 EDT, Route to Pharmacy Electronically, [facility] #[id number], 153, cm, 07/18/21 11:26:00 EDT, Height, 84, kg... Start Date: 07/18/21 Status: Ordered multivitamin Multiple Vitamins oral capsule 1 capsule, By Mouth, Daily, # 30 capsule, 11 Refills, Maintenance, 08/14/21 18:41:00 EDT, Capsule, [facility] #[id number], 1 capsule By Mouth Daily, 153, cm, [...] tablet, 0 Refills, Maintenance, 11/19/2114:33:00 EST, Tablet, [facility] #[id number], Partial fill upon patient request if the [...] capsule, 3 Refills, Maintenance, 08/04/22 14:29:00 EDT, [facility] Partial fill upon patient request if [...] 07/18/21 11:52:00 EDT, Route to Pharmacy Electronically, [facility] #[id number], 153, cm, 07/18/21 11:26:00 EDT, Height, 84, [...] falls, 08/22/19 11:03:15 EST, Compound Start Date: 11/5/19 Status: Ordered Zoloft 50 mg oral tablet 1 tablet = 50 mg, By Mouth, Daily at bedtime, # 30 tablet, 11 Refills, Maintenance, 07/18/21 11:57:00 EDT, [facility] #[id number], 153, cm, 07/18/21 11:26:00 EDT, Height, 84, [...] Care Team Personnel Name: Christa Villalta Position: [facility] RN Member Role: Primary Care Nurse Name: Lori Toure RN Position: [facility] RN Member Role: Primary Care Nurse Name: Shelia Dallas RN Position: [facility] OFFICE ELECTRICIAN No Tools Member Role: Primary Care Nurse Name: Federico Yates MD Position: [facility] Physician - Primary Care Member Role: PCP Address: Address: [address] [place], [place] - Name: Sonya Harrell RN Position: [facility] RN Member Role: Primary Care Nurse Care Team Related Persons Name: BRANDON GIL Address: home [address] [place] [address]
--- OUTSIDE RECORDS SUMMARY | 2024-05-16 07:26 | XMS_ITS | Continuity of Care Document ---
Author Organization [facility] ter Address [address] [place] [address]- Care Team Providers Care Resin Filterer Name Role Phone Milan JOHNSON, Asma Primary Care Physician Encounter [facility] Date(s): 04/03/24 - 05/03/[address] [address]- Attending Physician: Not on Staff, Attending MD Admitting Physician: Not on Staff, Admitting MD Referring Physician: Not on Staff, Referring MD Allergies, Adverse Reactions, Alerts Substance Reaction Severity Status ibuprofen Shortness of breath Active Motrin 1 Anaphylaxis Active Tylenol Shortness of breath Anaphylaxis Persistent Severe Active 1Tolerates Meloxicam Immunizations Given and Recorded Vaccine Date Status Refusal Reason SARS-CoV-2 mRNA (givtzhj-ixgm-paidv) vax 04/22/22 Recorded SARS-CoV-2 mRNA (prafuet-jmxg-wxlme) vax 03/23/22 Recorded pneumococcal 23-valent vaccine 02/27/19 Given tetanus/diphtheria/pertussis, acel(Tdap) 02/06/19 Given Medications Abdominal Binder Abdominal Binder, 1, Topically, Wednesday through Wednesday, # 1 each, Refills 0, Tot. 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, 08/08/20 16:56:00 EDT, Supply Start Date: 08/08/20 Status: Ordered albuterol 0.083% inhalation solution 3 mL, Inhalation, Every 6 hours, PRN NEEDED FOR WHEEZING, # 90 mL, 0 Refills, [facility] #[id number], 153, cm, 07/18/21 11:26:00 EDT, Height, 84, kg, 07/31/20 17:07:00 EDT, Dry Weight Start Date: 08/01/21 Status: Ordered albuterol-ipratropium 3 mg-0.5 mg/3 ml inhalation solution 3 mL, Neb, 4 times a day, PRN Wheezing/Shortness of Breath, for use with nebulizer, # 360 mL, 11 Refills, Maintenance, 07/18/21 11:54:00 EDT, Solution, [facility] #[id number], Partial fill upon patient request if the [...] 11 Refills, Maintenance, 07/18/21 11:52:00 EDT, Cream, [facility] #[id number], 1 applicator Topically 3 times a day,PRN:back [...] Refills, Maintenance, 08/04/21 9:55:00 EDT, EC Capsule, [facility] #[id number], Partial fill upon patient request if the prescription is for a schedule II opioid drug., 153, cm, 07/18/21... Start Date: 08/04/21 Status: Ordered gabapentin 300 mg oral capsule 300 mg, 1, capsule, By Mouth, Daily at bedtime, # 30 capsule, Refills 11, Tot. Refills 11, Maintenance, 07/18/21 12:00:00 EDT, Route to Pharmacy Electronically, [facility] #[id number], Partial fill upon patient request if the prescription is for... Start Date: 07/18/21 Status: Ordered lisinopril 5 mg oral tablet 1, tablet, By Mouth, 2 times a day, # 60 tablet, Refills 0, Route to Pharmacy Electronically, [facility] #[id number], 153, cm, 08/18/21 12:15:00 EDT, Height, 84, kg, 07/31/20 17:07:00 EDT, Dry Weight Start Date: 09/04/21 Status: Ordered LORazepam 1 mg oral tablet 1 tablet = 1 mg, By Mouth, Daily at bedtime, PRN as needed for anxiety, [facility] PRN anxiety, # 3 tablet, 0 Refills, [...] 07/18/21 11:56:00 EDT, Route to Pharmacy Electronically, [facility] #[id number], 153, cm, 07/18/21 11:26:00 EDT, Height, 84, kg... Start Date: 07/18/21 Status: Ordered multivitamin Multiple Vitamins oral capsule 1 capsule, By Mouth, Daily, # 30 capsule, 11 Refills, Maintenance, 08/14/21 18:41:00 EDT, Capsule, [facility] #[id number], 1 capsule By Mouth Daily, 153, cm, [...] tablet, 0 Refills, Maintenance, 11/19/2114:33:00 EST, Tablet, [facility] #[id number], Partial fill upon patient request if the [...] capsule, 3 Refills, Maintenance, 08/04/22 14:29:00 EDT, [facility], Partial fill upon patient request if [...] 07/18/21 11:52:00 EDT, Route to Pharmacy Electronically, [facility] #[id number], 153, cm, 07/18/21 11:26:00 EDT, Height, 84, [...] tablet, 11 Refills, Maintenance, 07/18/21 11:57:00 EDT, [facility] #[id number], 153, cm, 07/18/21 11:26:00 EDT, Height, 84, [...] Care team information Care Team Personnel Name: Felix REESE Christa Position: [facility] RN Member Role: Primary Care Nurse Name: Lori Toure RN Position: [facility] RN Member Role: Primary Care Nurse Name: Shleia Dallas RN Position: [facility] METAL BALER No Tools Member Role: Primary Care Nurse Name: Federico Yates MD Position: [facility] Physician - Primary Care Member Role: PCP Address: Address: [address] [place] [address]- Name: Sonya Harrell RN Position: [facility] RN Member Role: Primary Care Nurse Care Team Related Persons Name: BRANDON GIL Address: home [address] [place] [address]
[2024-05-16] MEDS: Gabapentin 300 MG CAPSULE PO ×3 (07:43→20:10)
[2024-05-16] MEDS: methocarbamoL 750 MG TABLET PO ×2 (07:43→16:13)
[2024-05-16] MEDS: Lactated Ringers 1,000 ML 100 ML IVCONT (07:44)
--- NOTE | 2024-05-16 10:45 | P.CONAN_ITS ---
Documented by User: Kaitlin Vega NP 05/15/24 09:54 HPI - Anesthesia Eval Consult details Narrative: 68yo F for L3-4 Oblique Lumbar Interbody Fusion and Revision of Posterior Instrumentation at L3-S1, 05/16/24 No recent illness No CP/SOB within limits of pain RA: prn prednisone 2-3 doses monthly (5mg) RAÚL: Pt denies Asthma: environmental exac. Very rare rescue inhaler EKG on DOS d/t logistical error PMFSH Active Problems Active Problems: All Active Problems Recurrent falls (Acute) Lumbar spinal stenosis due to adjacent segment disease after fusion procedure (Acute) Encounter for power mobility device assessment (Acute) Chronic low back pain (Acute) Impaired mobility (Acute) History of carpal tunnel release (Acute) Trigger finger, left ring finger (Acute) Risk for falls (Acute) Chronic nausea (Acute) Acute bronchitis (Acute) Asthma exacerbation (Acute) Respiratory tract congestion with cough (Acute) Cough (Acute) Arthritis of joint of lesser toe, left (Acute) Hand numbness (Acute) Dementia (Acute) Obesity due to excess calories (Acute) Bowel incontinence (Acute) Urine incontinence (Acute) Memory impairment of gradual onset (Acute) Finger pain (Acute) Elevated blood sugar (Acute) Fibromyalgia (Acute) Vertigo (Acute) Benign paroxysmal positional vertigo (Acute) Dyspepsia (Acute) Tinea corporis (Acute) Vaginal pruritus (Acute) Muscle spasm (Acute) Abnormal CT scan, chest (Acute) Shortness of breath (Acute) Interstitial lung disease (Acute) Constipation by delayed colonic transit (Acute) Epigastric discomfort (Acute) Arthritis of elbow (Acute) Shoulder arthritis (Acute) Fall (Acute) Hospital discharge follow-up (Acute) Chronic GERD (Acute) Environmental allergies (Acute) Hypertension, essential (Acute) Arthrosis (Acute) Left elbow pain (Acute) Left shoulder pain (Acute) Lower back pain (Acute) Upper back pain (Acute) Elbow pain, right (Acute) Establishing care with new doctor, encounter for (Acute) Anxiety, generalized (Acute) Overweight (BMI 25.0-29.9) (Acute) Major depression, recurrent (Acute) Elevated blood pressure reading (Acute) Rheumatoid arthritis (Acute) History of lumbar surgery (Acute) Lumbar spinal stenosis (Acute) RAÚL (obstructive sleep apnea) (Acute) Trigger finger (Acute) Sleep disorder breathing (Acute) Cough (Acute) Asthma (Acute) Myofascial muscle pain (Acute) Past Medical History Medical History (Updated 05/02/24 @ 12:25 by Sylvie Isaac RN) GERD (gastroesophageal reflux disease) Cold intolerance Dementia Rheumatoid arthritis Lumbar spinal stenosis RAÚL (obstructive sleep apnea) Trigger finger Sleep disorder breathing Latent tuberculosis Cough Asthma Chronic pain syndrome Myofascial muscle pain Osteoarthritis Fibromyalgia HTN (hypertension) Anxiety Family History Family History Father Diabetes Mother Acute arthritis Other Mental health disorder Surgical History Surgical History (Updated 05/02/24 @ 12:07 by Sylvie Isaac RN) Hx of ovarian cystectomy Hx of cervical discectomy History of lumbar surgery Social History Social History Household Members: None Housing: Apartment Are you a primary anesthesiologist and critical care to a significant other at home: No Do you presently have visiting nurse or other home services: 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 If so, by whom?: No Are you DNR?: No Advance Directives: Yes (daughter is primary contact & HCP) Advance Directives Information Provided: Yes Advance Directives on File: Yes Advance Directives Date on File: 02/26/22 Recently lost weight without trying: No Eating poorly because of decreased appetite: No Nutrition Risks: No Nutritional Risk Poor oral hygiene: No (upper & lower full denture) service: No Current occupational status: unemployed Cognitive needs: No Hearing needs: No Vision needs: No Meds Allergies Allergy/AdvReac Type Severity Reaction Status Date / Time acetaminophen [From Tylenol] Allergy Severe Shortness Verified 05/16/24 07:19 of Breath ibuprofen Allergy Severe shortness Verified 05/16/24 07:19 of breath canned food Allergy Intermediate Shortness Uncoded 05/16/24 07:19 of Breath Home Medications ?Medication ?Instructions ?Recorded ?Confirmed ?Last Taken ?Type doxepin 10 mg capsule 10 mg PO BEDTIME 12/02/23 05/01/24 05/15/24 History lorazepam 1 mg tablet 1 mg PO DAILY PRN Anxiety 12/02/23 05/01/24 Unknown History prednisone 10 mg tablet 10 mg PO DAILY PRN flare up 05/02/24 05/02/24 05/09/24 History rheumatoid trazodone 50 mg tablet 50 mg PO BEDTIME 05/16/24 Unknown History Exam Height,Weight and Vital Signs: Height 5 ft 3 in Weight 87.09 kg Last Vital Signs Pulse 88 05/02/24 12:15 Resp 20 05/02/24 12:15 BP 126/67 05/02/24 12:15 Pulse Ox 96 05/02/24 12:15 O2 Del Method Room Air 05/02/24 12:15 Pertinent Lab Results Pertinent Lab Results: Lab Results 05/02/24 05/02/24 Range/Units 12:58 13:09 WBC 6.9 (4.8-10.8) X10*3/uL RBC 4.52 (4.20-5.50) X10*6/uL Hgb 12.7 (12.0-16.0) g/dl Hct 39.7 (37.0-47.0) % MCV 87.8 (80.0-98.0) fL MCH 28.1 (27.0-33.0) pg MCHC 32.0 (31.0-35.0) g/dl RDW 14.8 (11.0-16.0) % Plt Count 215 (160-400) X10*3/uL MPV Not Reportable Absolute Nucleated RBC 0.000 (0.0-0.012) X10*3/uL Nucleated RBC % (auto) 0.0 (0.0-0.2) /100WBC Sodium 140 (135-145) mmol/L Potassium 3.8 (3.3-5.1) mmol/L Chloride 110 H (96-108) mmol/L Carbon Dioxide 21 L (22-29) mmol/L Anion Gap 13 (12-20) BUN 15 (9-16) mg/dL Creatinine 0.70 (0.5-1.4) mg/dL Estim Creat Clear Calc 81.5 Estimated GFR > 60 Random Glucose 135 H (60-115) mg/dL Calcium 9.7 (8.4-10.2) mg/dL Blood Type A Positive Antibody Screen NEGATIVE Airway Mallampati Class: III TM Dist: >3cm Neck ROM: Full Denture: Upper Partial: Lower Heart: RRR Lungs: CTAB Assessment and Plan Assessment Anesthesia Assessment: Anesthesia Plan Discussed and PAT Visit Documented by User: Kathy Kim DO 05/16/24 10:49 HPI - Anesthesia Eval Consult details Narrative: 68yo F for L3-4 Oblique Lumbar Interbody Fusion and Revision of Posterior Instrumentation at L3-S1, 05/16/24 No recent illness No CP/SOB within limits of pain RA: prn prednisone 2-3 doses monthly (5mg) RAÚL: Pt denies Asthma: environmental exac. Very rare rescue inhaler EKG on DOS: NSR PMFSH Past Medical History Medical History (Updated 05/02/24 @ 12:25 by Sylvie Isaac RN) GERD (gastroesophageal reflux disease) Cold intolerance Dementia Rheumatoid arthritis Lumbar spinal stenosis RAÚL (obstructive sleep apnea) Trigger finger Sleep disorder breathing Latent tuberculosis Cough Asthma Chronic pain syndrome Myofascial muscle pain Osteoarthritis Fibromyalgia HTN (hypertension) Anxiety Family History Family History Father Diabetes Mother Acute arthritis Other Mental health disorder Family history of problems with anesthesia: No Surgical History Surgical History (Updated 05/02/24 @ 12:07 by Sylvie Isaac RN) Hx of ovarian cystectomy Hx of cervical discectomy History of lumbar surgery History of Problems with Anesthesia: No Social History Social History Household Members: None Housing: Apartment Are you a primary anesthesiologist and critical care to a significant other at home: No Do you presently have visiting nurse or other home services: 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 If so, by whom?: No Are you DNR?: No Advance Directives: Yes (daughter is primary contact & HCP) Advance Directives Information Provided: Yes Advance Directives on File: Yes Advance Directives Date on File: 02/26/22 Recently lost weight without trying: No Eating poorly because of decreased appetite: No Nutrition Risks: No Nutritional Risk Poor oral hygiene: No (upper & lower full denture) service: No Current occupational status: unemployed Cognitive needs: No Hearing needs: No Vision needs: No Meds Allergies Allergy/AdvReac Type Severity Reaction Status Date / Time acetaminophen [From Tylenol] Allergy Severe Shortness Verified 05/16/24 07:19 of Breath ibuprofen Allergy Severe shortness Verified 05/16/24 07:19 of breath canned food Allergy Intermediate Shortness Uncoded 05/16/24 07:19 of Breath Home Medications ?Medication ?Instructions ?Recorded ?Confirmed ?Last Taken ?Type doxepin 10 mg capsule 10 mg PO BEDTIME 12/02/23 05/01/24 05/15/24 History lorazepam 1 mg tablet 1 mg PO DAILY PRN Anxiety 12/02/23 05/01/24 Unknown History prednisone 10 mg tablet 10 mg PO DAILY PRN flare up 05/02/24 05/02/24 05/09/24 History rheumatoid trazodone 50 mg tablet 50 mg PO BEDTIME 05/16/24 Unknown History Exam Exam Date and Time: May 16, 2024 1045 Height,Weight and Vital Signs: Height 5 ft 3 in Weight 87.09 kg Last Vital Signs Pulse 88 05/02/24 12:15 Resp 20 05/02/24 12:15 BP 126/67 05/02/24 12:15 Pulse Ox 96 05/02/24 12:15 O2 Del Method Room Air 05/02/24 12:15 Vital Signs Pulse Rate 88 05/02/24 12:15 Respiratory Rate 20 05/02/24 12:15 Blood Pressure 126/67 05/02/24 12:15 Pulse Oximetry 96 05/02/24 12:15 Oxygen Delivery Method Room Air 05/02/24 12:15 Temperature 97.0 F 05/16/24 07:26 Pulse Rate 82 05/16/24 07:26 Respiratory Rate 18 05/16/24 07:26 Blood Pressure 139/67 05/16/24 07:26 Pulse Oximetry 96 05/16/24 07:26 Oxygen Delivery Method Room Air 05/16/24 07:26 Airway Mallampati Class: III TM Dist: >3cm Neck ROM: Full Denture: Upper and Lower Heart: S1S2 Assessment and Plan Assessment Anesthesia Assessment: Anesthesia Plan Discussed and Chart Reviewed Final Anesthetic Review Family History of Problems with Anesthesia: No History of Problems with Anesthesia: No NPO: Yes ASA Class: III Final Preanesthetic Review: No Changes in Pt Med Stat, Meds/Allgs Chart Reviewed, Consent Obtained/Reviewed and Anes Risks/Benef Reviewed Patient Risk: Intermediate Procedure Risk: Intermediate Anesthetic Plan Anesthetic Plan: GA and Agree w/ Assess. and Plan Disposition: Standard PACU
--- NOTE | 2024-05-16 14:38 | W.PM.OPN ---
Operative Note Operative Note Date of Service: 05/16/24 Narrative: Preop Diagnosis: 1.) Adjacent degenerative disc disease L3-4 with severe central spinal stenosis 2.) Status post L4-S1 lumbar fusion Procedure: 1) L3-4 discectomy, arthrodesis and implantation cage through an anterolateral, retroperitoneal approach 2) revision posterior instrumentation with removal of bilateral L4 screws and reinsertion of L3 and L4 pedicle screws followed by posterolateral fusion L3-L4 p 3) allograft Consent Informed Consent was obtained for this operation. I have explained the nature, purpose and benefits of the operation. I have discussed the risks and benefit of the operation including possible complications or adverse events with patient/family. Alternative(s) were discussed with the patient with their relative benefits and risks as well as the consequences of not accepting the operation were included in obtaining consent. Surgeon: MINH MCDONALD MD, PHD Procedure Assisted By: dorothy Sylvester Description of Procedure This 68-year-old female had a previous lumbar fusion done in [facility] in the . She presented with severe neurogenic claudication preventing her from getting out of the house. Imaging reviews adjacent degenerative disc disease L3-4 and severe spinal stenosis. A regular x-ray also showed that we most likely did not after removal tools for the posterior instrumentation, which created a possibility that we were are not able to remove the instrumentation. The patient was offered an oblique lumbar interbody fusion L3-4 and revision and reinsertion of the posterior instrumentation. The procedure complications were explained. The patient was consented. The patient was brought to the operating room and endotracheally intubated. The patient was turned in a lateral position with the left side up. Prep and drape was done followed by timeout. A small incision was made in the left lower abdominal quadrant. The muscle fascia was opened after which the 3 muscle layer was split to enter the retroperitoneal space. Dilators were docked in the anterior one third of the L3-4 disc space followed by a retractor. The retractor was opened. The L3-4 disc space was exposed. An annulotomy was done after which an elevator Bruner was used to release the disc material from its endplates and to perforate the contralateral side. A partial discectomy was done. An 8 and 10 mm height trial implant was inserted. The discectomy was completed. The endplates were prepared. An 12 x 45 mm with 6 degree lordosis CTL silicon nitride cage filled with allograft was inserted into the disc space under fluoroscopic guidance. This resulted in an increase the foraminal height and disc height. The retractor was removed. Hemostasis was done. The incision was closed in 2 layers. Steri-Strips used to approximate incision. An OpSite with Tegaderm was used to cover the incision. This marked first part of the procedure. The patient was turned prone on the Anders spine table. 2C arms were installed for fluoroscopy. Prep and drape was done followed by a second timeout. 2 paramedian incisions were made lateral from the previous placed instrumentation. The dissection was carried out towards instrumentation. I decided to only expose a part of the instrumentation being the L4 screw, I part of the rods and the crosslink. On the left side I cut the tamika using a high-speed drill and an osteotome. I was then able to remove the mono axial screw with a part of the tamika attached. Now that we knew how this current locking mechanisms looked like I decided to change these charge of the on the contralateral side. I removed the ring and washer that was clamping down 2 pieces that were holding the tamika. Now I was able to remove those pieces at result in a disconnection between the tamika and the screw. I was then able to remove the screw while leaving the tamika insitu. The next step was to insert pedicle screws in the bilateral L3 pedicles. The following steps were taken. A pediguard tap was used to create a transpedicular trajectory into the vertebral body. A K wire was placed. A specially designed instrument was advanced over the K wire to decorticate the posterolateral gutter in preparation for the posterolateral fusion. A pedicle screw was advanced over the K wire and the K wire was removed. The steps were done for the bilateral L3 pedicles followed by placement of 2 new screws in the L4 pedicles. A total of 4 Astura pedicle screws were placed with a diameter of 6.5 x 45 mm. Pedicle screws were connected with 40 mm tamika bilaterally and locked down with locking caps. The extension towers were removed. The posterolateral gutter was filled with allograft to complete the posterolateral L3-4 fusion Hemostasis was done and the incision was closed in 2 layers. Steri-Strips were used to approximate the incision. An OpSite were taken and was used to cover the incision. All sponge and needle counts were correct. Patient was extubated and transferred in stable is to recovery room. Anesthesia: General Estimated Blood Loss (ml): 150 ml Duration of Surgery: 2 hours 30 minutes Complications: None Postoperative Plan: Admit to inpatient for observation
[2024-05-16] MEDS: HYDROmorphone HCl 0.5 MG/0.5 ML SYRINGE IVPUSH ×2 (15:40→16:12)
--- NOTE | 2024-05-16 16:44 | PM.DS ---
DS: Providers Provider Date of Service: 05/16/24 Date of admission: 05/16/24 07:08 Date of discharge: 05/17/24 Primary care physician: Federico Yates MD Admitting clinician: Gold Pulido DS: Diagnosis Discharge Diagnosis (1) Lumbar spinal stenosis due to adjacent segment disease after fusion procedure: Status: Acute DS: Summary Hospital Course Hospital Course: 68-year-old female admitted for elective L3-4 oblique lumbar interbody fusion and revision of posterior instrumentation. The patient underwent procedure without complication. She is brought to the recovery room where she recovered from anesthesia and subsequently brought to the [address] [place] [address] where she began convalescence. Patient was started on oral and IV Dilaudid in addition to IV Tylenol for pain control. Cyclobenzaprine was continued as well. Diet was advanced. Patient was allowed out of bed as tolerated. Her 1st postoperative night was unremarkable. She was seen by PT the next day. She was uncomfortable but did clear to go home with services. She was kept another night for pain control and being slow to mobilize. On postoperative day 2., Dr. Pulido and I saw her in the morning, and she was reporting that she was having more pain in her back after getting out of bed on the left side as opposed to the normally she would get out on the right side. It was giving her a lot of difficulty with standing walking so we sent her for x-rays. Dr. Pulido reviewed the x-rays not see any acute abnormalities just postsurgical instrumentation that was stable. Therefore, it was felt that she was okay for discharge as long as she was getting up moving around. If not we would anticipate sending her to rehab but the patient was very adamant that she did not want to go to rehab would rather just go home. She was tolerating a regular diet and voiding on her own. On exam she was awake alert oriented, uncomfortable but no acute distress, full strength of bilateral lower extremities, abdomen obese nondistended nontender no rebound tenderness or guarding, left lower quadrant incision clean and dry no signs of hematoma, back dressing in place, no signs of active bleeding. Patient was given full discharge instructions and activity guidelines. She can follow up in the office in 3 weeks. She does not need a brace. Time Attestation Discharge Coordination Time (in mins): 5 Quality: Safe Use of Opioids Does Pt have an Active Cancer Diagnosis on the Problem List?: No Quality: Stroke Does the patient have a stroke diagnosis?: No Physical Exam Vital Signs: Vital Signs: Last Vital Signs Temp 98.2 F 05/16/24 16:31 Pulse 78 05/16/24 16:31 Resp 15 05/16/24 16:31 BP 152/71 H 05/16/24 16:31 Pulse Ox 97 05/16/24 16:31 O2 Del Method Nasal Cannula 05/16/24 16:31 O2 Flow Rate 2 05/16/24 16:31 BMI result Body Mass Index 39.0 Discharge Plan Discharge Anticipated Discharge Date/Time: 05/18/24 14:08 Patient Disposition: Home Health Service Discharge Diagnosis: L3-4 oblique lumbar interbody fusion with revision of posterior instrumentation Referrals: Federico Yates MD [Primary Care Provider] - 1 Week Discharge Medications: New hydromorphone [Dilaudid] 2 mg tablet See Rx Instructions .ROUTE .COMPLEX PRN (Reason: pain) Qty: 40 0RF Rx Instructions: 1-2 tabs po q4 hours prn pain; Partial Fill upon patient request. docusate sodium [Colace] 100 mg capsule 100 mg PO BID Qty: 20 0RF Continued (DME) nebulizer and compressor [Comp-Air Nebulizer Compressor] Device See Rx Instructions .Route Qty: 1 0RF Rx Instructions: As directed (DME) adult diapers medium Medium 0 .Route .MEDSUPPLY Qty: 60 0RF Rx Instructions: Use for incontinence episodes at night. (DME) showering chairs See Rx Instructions .Route .MEDSUPPLY Qty: 1 0RF Rx Instructions: As directed (DME) walker Misc See Rx Instructions .Route Qty: 1 0RF Rx Instructions: As directed (DME) disposable gloves Misc See Rx Instructions .Route Qty: 200 5RF Rx Instructions: Size medium (DME) disposable pads-up to 3/day See Rx Instructions .Route .MEDSUPPLY Qty: 100 5RF Rx Instructions: As directed albuterol sulfate 2.5 mg /3 mL (0.083 %) solution for nebulization 2.5 mg inhalation Q4-6H PRN (Reason: shortness of breath or wheezing) 30 Days Qty: 180 6RF (DME) bed table 0 .Route .MEDSUPPLY Qty: 1 0RF Rx Instructions: As directed (DME) Blood pressure monitor See Rx Instructions .Route .MEDSUPPLY Qty: 1 0RF Rx Instructions: As directed capsaicin 0.025 % cream 1 appl topical BID 30 Days Qty: 60 7RF Rx Instructions: apply to arms, back, legs, affected areas cyclobenzaprine 10 mg tablet 10 mg PO BID PRN (Reason: muscle spasm) 90 Days Qty: 180 0RF lisinopril 5 mg tablet 5 mg PO DAILY 90 Days Qty: 90 0RF simvastatin 20 mg tablet 20 mg PO BEDTIME Qty: 90 0RF montelukast 10 mg tablet 10 mg PO DAILY Qty: 90 0RF pantoprazole 40 mg tablet,delayed release (DR/EC) 40 mg PO DAILY@0630 Qty: 90 0RF trazodone 50 mg tablet 50 mg PO BEDTIME PRN (Reason: Sleep) cetirizine 10 mg tablet 10 mg PO DAILY PRN (Reason: allergies) memantine 10 mg tablet 10 mg PO DAILY duloxetine 20 mg capsule,delayed release(DR/EC) 20 mg PO DAILY 90 Days Qty: 90 1RF Hold Instructions: Doctor's Order ondansetron HCl 4 mg tablet 4 mg PO Q8H PRN (Reason: nausea and vomiting) 30 Days Qty: 30 0RF lorazepam 1 mg tablet 1 mg PO DAILY PRN (Reason: Anxiety) doxepin 10 mg capsule 10 mg PO BEDTIME lorazepam 0.5 mg tablet 0.5 mg PO BEDTIME PRN (Reason: anxiety/insomnia) 30 Days Qty: 30 1RF ipratropium-albuterol 0.5 mg-3 mg(2.5 mg base)/3 mL solution for nebulization 3 ml inhalation Q6H PRN (Reason: wheezing/cough) 30 Days Qty: 180 3RF Discontinued oxycodone 5 mg tablet 5 mg PO ONCE PRN (Reason: pain) 30 Days Qty: 30 0RF Rx Instructions: Partial Fill upon patient request. Discharge Orders: Discharge Order (Routine); Ordered 05/18/24 Ordered By: Jovanni Kim Diet: Advance to usual diet Activity on Discharge: As tolerated Stand Alone Forms: Patient Portal Discharge page Print Language: Prydeinig Activity Restrictions/Additional Instructions: After your spinal surgery we ask you to observe the following restrictions/guidelines: Activity: It is normal to feel some discomfort as you increase your activity, but that will improve with time. We ask you avoid heavy lifting or acitivities that cause pain. As a general rule, 8lbs is a safe limit for lifting right after surgery. Walk as much as you feel comfortable but not to exhaustion. You will feel extra tired the first few days after surgery. Stay well hydrated. It is OK to walk up and down stairs You may return to driving when you are off narcotics (such as vicodin, oxycodone, dilaudid, etc), and you are back to normal functional capacity. If you have any concerns please check with office before driving. Return to work is specific to each patient and each surgery, so please speak with your doctor/PA at first follow up. Please bring paperwork such as FMLA at that time if you need it filled out. Medications: For optimum pain control, it is best to start with a combination of 500 mg of Tylenol every 4 hours with 600 mg of Motrin every 8 hours, and use narcotics as needed in between for breakthrough pain. We will give you a short supply of narcotics after surgery (usually one weeks worth). If you need more please call the office but do not use more than prescribed. You will need to give our office 48 hours notice if you need narcotics refilled and we do not fill narcotics on weekends or evenings. If you are on a narcotic, it is a good idea to take a stool softener such as colace or senna to avoid constipation If you take blood thinner such as aspirin, Plavix, Coumadin, Effient, Eliquis etc for conditions such as Afib, DVT, Pulmonary embolus, coronary disease, stents etc please speak with your surgeon about specific details as to when you can resume these medications. You can resume NSAIDs on post op day 1 (eg: Motrin, Naproxen, etc). Follow up: Please call the office, , after surgery to arrange a 3 week follow up for wound check. Wound Care: You may remove your dressing on the first day after surgery. ?You may ?leave open to air. Please do not remove the steri strips underneath. they will fall off on their own in one week. IT IS NORMAL FOR THE WOUND TO OOZE OR BE BLOODY FOR A FEW DAYS AFTER SURGERY. ?IF THIS HAPPENS JUST PLACE NEW DRESSING OVER IT TO AVOID STAINING CLOTHES. You may shower on post op day # 1 We ask that you do not let the water soak the wound. If it does get wet, just towel dry lightly. Please do not scrub your incision or place any type of chemical/ointment on the wound. No tub baths, pools or jacuzzis for one month. If you have any leaking or redness from your wound, or fevers, please call office Care Plan Goals: Discharge home Health Concerns: None Plan of Treatment: Status post lumbar fusion, discharge home today follow up in the office in 3 weeks Assessment: Stable
[2024-05-16] MEDS: 0.9 % Sodium Chloride 1,000 ML 75 ML IVCONT (17:21)
[2024-05-16] MEDS: ceFAZolin Sodium/Dextrose,Iso 2 GM/50 ML PIGGYBACK IV ×2 (17:21→23:48)
--- NOTE | 2024-05-16 18:05 | PC.NURSE ---
Bladder scan at 1800 for 193mL. Awaiting first post-op void.
--- NOTE | 2024-05-16 19:15 | PHA.MEDREC ---
Addendum entered by Analia Templeton kushal 05/16/24 19:41: patient is taking both strengths of Ativan when needed. reviewed Original Note: Pharmacy Consult ? Medication Reconciliation Pharmacy has completed the medication reconciliation. Confirmed mediations with patient. Patient confirmed she took her medications last 2 days ago.
[2024-05-16] MEDS: Docusate Sodium 100 MG CAPSULE PO (20:10)
[2024-05-16] MEDS: HYDROmorphone HCl 1 MG/ML SYRINGE IVPUSH (20:10)
[2024-05-16] MEDS: Memantine HCl 10 MG TABLET PO (20:10)
[2024-05-16] MEDS: Atorvastatin Calcium 10 MG TABLET PO (20:10)
[2024-05-16] MEDS: ondansetron HCL 4 MG/2 ML VIAL IVPUSH (20:48)
[2024-05-16] MEDS: LORazepam 0.5 MG TABLET PO (21:42)
[2024-05-16] MEDS: Doxepin HCl 10 MG CAPSULE PO (21:42)
[2024-05-16] MEDS: Omeprazole 20 MG CAPSULE.DR PO (21:46)
--- NOTE | 2024-05-16 22:13 | PC.NURSE ---
2130 pt. oob ambulated a short distance.voided 100cc on commode and bladder scanned for 68cc.
[2024-05-17] MEDS: Albuterol Sulfate (0.083%) 2.5 MG/3 ML VIAL.NEB INHALE (00:07)
[2024-05-17 00:11] VITALS: PULSE 87; RESP 20; O2SAT 95
[2024-05-17] MEDS: HYDROmorphone HCl 1 MG/ML SYRINGE IVPUSH ×3 (02:11→19:50)
[2024-05-17 03:31] VITALS: BP 110/70; PULSE 87; RESP 20; TEMP 36.3; O2SAT 95
[2024-05-17] MEDS: 0.9 % Sodium Chloride 1,000 ML 75 ML IVCONT ×2 (05:13→17:47)
[2024-05-17] MEDS: ceFAZolin Sodium/Dextrose,Iso 2 GM/50 ML PIGGYBACK IV (05:52)
[2024-05-17 08:00] VITALS: BP 126/60; PULSE 95; RESP 18; TEMP 37.1; O2SAT 95
[2024-05-17] MEDS: Loratadine 10 MG TABLET PO (09:02)
[2024-05-17] MEDS: DULoxetine HCl 20 MG CAPSULE.DR PO (09:02)
[2024-05-17] MEDS: Omeprazole 20 MG CAPSULE.DR PO (09:02)
[2024-05-17] MEDS: Memantine HCl 10 MG TABLET PO (09:03)
[2024-05-17] MEDS: Gabapentin 300 MG CAPSULE PO ×3 (09:03→19:54)
[2024-05-17] MEDS: Montelukast Sodium 10 MG TABLET PO (09:03)
[2024-05-17] MEDS: Docusate Sodium 100 MG CAPSULE PO ×2 (09:03→20:06)
[2024-05-17] MEDS: lisinopriL 5 MG TABLET PO (09:03)
--- NOTE | 2024-05-17 09:52 | MHC.CM.PN ---
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
--- NOTE | 2024-05-17 10:06 | HO.POSTANES ---
Post Anesthesia Evaluation Post Anesthesia Evaluation Date of Service: 05/09/24 Vital Signs: Vital Signs Temp Pulse Resp BP Pulse Ox O2 Del Method O2 Flow Rate 05/17/24 08:00 98.7 F 95 18 126/60 95 Room Air 05/17/24 03:31 97.3 F 87 20 110/70 95 Nasal Cannula 2 05/17/24 00:11 87 20 05/16/24 23:26 97.4 F 86 20 131/62 97 Nasal Cannula 2 Anesthesia: General Mental Status: Awake Pain Control: Satisfactory Nausea/Vomiting: None Hydration: Adequate Anesthesia-Related Issues: No Anes. Related Issues
--- NOTE | 2024-05-17 10:39 | HO.NEURO.PN ---
Neurosurgery Operative Note Date of Service: 05/17/24 Narrative: Status post L3-4 oblique lumbar interbody fusion and revision posterior instrumentation on 05/16/2024. The incisions are dry. The patient is neurologically intact her motor sensation or reflexes. The patient has been ambulating. Not ready to be discharged. Will work more with physical therapy and we are aiming for discharge tomorrow.
[2024-05-17 15:16] VITALS: BP 99/54; PULSE 100; RESP 18; TEMP 36.2; O2SAT 96
[2024-05-17] MEDS: methocarbamoL 750 MG TABLET PO (16:39)
[2024-05-17 17:44] VITALS: BP 114/56
[2024-05-17 19:47] VITALS: BP 123/58; PULSE 95; RESP 20; TEMP 37.2; O2SAT 96
[2024-05-17] MEDS: Doxepin HCl 10 MG CAPSULE PO (19:54)
[2024-05-17] MEDS: Atorvastatin Calcium 10 MG TABLET PO (19:54)
[2024-05-17] MEDS: LORazepam 0.5 MG TABLET PO (19:54)
[2024-05-18] MEDS: HYDROmorphone HCl 1 MG/ML SYRINGE IVPUSH (02:05)
[2024-05-18 03:29] VITALS: BP 122/59; PULSE 112; RESP 18; TEMP 36.3; O2SAT 93
[2024-05-18] MEDS: 0.9 % Sodium Chloride 1,000 ML 75 ML IVCONT (05:45)
[2024-05-18 07:36] VITALS: BP 149/69; PULSE 109; RESP 20; TEMP 36.4; O2SAT 92
--- NOTE | 2024-05-18 07:41 | HO.NEURO.PN ---
Neurosurgery Operative Note Date of Service: 05/18/24 Narrative: Postop day 2. L3-4 oblique lumbar interbody fusion, revision of posterior instrumentation Patient reports more pain in the left side of her back this morning. She was getting out of bed and normally gets out in the right side but got out on the left side and felt that her pain got worse when that happened. No tingling or numbness or weakness going down the legs. She cleared PT to go home yesterday with services. She has been tolerating a diet without any nausea or vomiting. She has been voiding okay. Afebrile, vital signs are stable Physical exam: Patient appears uncomfortable, she is lying flat in bed, she has full strength of bilateral lower extremities, abdomen obese nondistended nontender no rebound tenderness or guarding, left lower quadrant incision is clean and dry, back dressing is clean and dry no signs of hematoma Impression: Postop day 2. L3-4 oblique lumbar interbody fusion revision of posterior instrumentation, reporting more pain this morning after she was rolled out of bed on the left side. I saw the patient at bedside with Dr. Pulido, we will get a standing x-ray just as a precaution. She cleared PT to go home yesterday with services the plan will be to discharge her today as long as the x-ray looks okay.
[2024-05-18] MEDS: lisinopriL 5 MG TABLET PO (08:07)
[2024-05-18] MEDS: methocarbamoL 750 MG TABLET PO (08:07)
[2024-05-18] MEDS: Gabapentin 300 MG CAPSULE PO ×2 (08:07→20:36)
[2024-05-18] MEDS: Memantine HCl 10 MG TABLET PO (08:08)
[2024-05-18] MEDS: Loratadine 10 MG TABLET PO (08:08)
[2024-05-18] MEDS: Montelukast Sodium 10 MG TABLET PO (08:08)
[2024-05-18] MEDS: DULoxetine HCl 20 MG CAPSULE.DR PO (08:08)
[2024-05-18] MEDS: Docusate Sodium 100 MG CAPSULE PO ×2 (08:08→20:37)
[2024-05-18] MEDS: LORazepam 1 MG TABLET PO (08:46)
--- NOTE | 2024-05-18 14:07 | P.F2F_ITS ---
Service Date Service Date: 05/18/24 Encounter Date of encounter: 05/18/24 Reasons for Services Signs and symptoms assessed: Status post lumbar fusion, difficulty walking, pain with mobilization Reason for residential: neurological assessment, wound care and postoperative assessment and/or care Reason for physical therapy: home safety and mobility, therapeutic exercises and gait/transfer training Reason for occupational therapy: home safety and mobility, therapeutic exercises and gait/transfer training Homebound: Leaving the home is medically contraindicated at this time without the asist of a device and/or another person due th the listed conditions above and below. Reason homebound: unsteady gait / fall risk, pain with ambulation and pain with transfers Certification: Based on the above findings, I certify that this patient is confined to the home and needs intermittent residential care, physical therapy and/or speech therapy, or continues to need occupational therapy. The patient is under my c are, and I have initiated the establishment of the plan of care. The patient will be followed by a physician who will periodically review the plan of care. Time Spent With Patient Time: Total time managing care of this patient today ___ 5 _ minutes.
--- NOTE | 2024-05-18 14:41 | MHC.CM.PN ---
Addendum entered by Erin Bonner 05/19/24 08:40: DC HELD AND NEW PLAN IS STR REFERRALS OUT, THE ONLY BED OFFER IS [facility] PENDING BED AVAILABILITY AND AUTH Original Note: IMM 05/17/24 S/P L3-L4 OLIF and revision of posterior instrument. She is discharged to home today. [facility] will resume services. Patient has arranged for a ride home from her dtr. CTO services will also resume.
[2024-05-18 15:14] VITALS: BP 133/61; PULSE 99; RESP 18; TEMP 37.3; O2SAT 92
[2024-05-18] MEDS: HYDROmorphone HCl 2 MG TABLET PO (17:27)
[2024-05-18 20:00] VITALS: BP 120/57; PULSE 94; RESP 18; TEMP 36.8; O2SAT 88
[2024-05-18 20:13] VITALS: O2SAT 97
[2024-05-18] MEDS: Doxepin HCl 10 MG CAPSULE PO (20:36)
[2024-05-18] MEDS: Atorvastatin Calcium 10 MG TABLET PO (20:37)
[2024-05-18] MEDS: LORazepam 0.5 MG TABLET PO (20:37)
[2024-05-18] MEDS: Albuterol Sulfate (0.083%) 2.5 MG/3 ML VIAL.NEB INHALE (20:53)
[2024-05-18 20:54] VITALS: PULSE 92; RESP 18; O2SAT 94
[2024-05-19 03:09] VITALS: BP 162/75; PULSE 90; RESP 18; TEMP 37.2; O2SAT 95
[2024-05-19] MEDS: methocarbamoL 750 MG TABLET PO ×2 (04:58→17:14)
--- NOTE | 2024-05-19 05:30 | PC.NURSE ---
pt assigned to me on 05/18 1900. pt speaking in mumbles, drowsy, very hard to keep pt attention or keep pt awake. note; prn dilaudid 2mg po was given by previous shift at 1720. when awake for a bit, pt crying for pain med but falls back asleep in the middle of conversation. pt also taking off o2 nc while asleep - o2 sat noted in low 80's RA while asleep. when asked, pt report hx of sleep apnea with cpap machine that pt has been refusing to use at home. pt educated on importance of keeping o2 NC while asleep during hospitalization, the importance of using cpap at home and dangers of over medicating. will cont to monitor
[2024-05-19 07:35] VITALS: BP 135/60; PULSE 90; RESP 18; TEMP 36.7; O2SAT 97
--- NOTE | 2024-05-19 09:01 | PM.DS ---
DS: Providers Provider Date of Service: 05/19/24 Date of admission: 05/16/24 07:08 Primary care physician: Federico Yates MD DS: Diagnosis Discharge Diagnosis (1) Lumbar spinal stenosis due to adjacent segment disease after fusion procedure: Status: Acute DS: Summary Hospital Course Hospital Course: 68-year-old female admitted for elective L3-4 oblique lumbar interbody fusion and revision of posterior instrumentation. The patient underwent procedure without complication. She is brought to the recovery room where she recovered from anesthesia and subsequently brought to the [address] [place] [address] where she began convalescence. Patient was started on oral and IV Dilaudid in addition to IV Tylenol for pain control. Cyclobenzaprine was continued as well. Diet was advanced. Patient was allowed out of bed as tolerated. Her 1st postoperative night was unremarkable. She was seen by PT the next day. She was uncomfortable but did clear to go home with services. She was kept another night for pain control and being slow to mobilize. On postoperative day 2., Dr. Pulido and I saw her in the morning, and she was reporting that she was having more pain in her back after getting out of bed on the left side as opposed to the normally she would get out on the right side. It was giving her a lot of difficulty with standing walking so we sent her for x-rays. Dr. Pulido reviewed the x-rays not see any acute abnormalities just postsurgical instrumentation that was stable. Therefore, it was felt that she was okay for discharge as long as she was getting up moving around. If not we would anticipate sending her to rehab. Physical therapy came back and saw her again and felt that she was too unsteady to go home so we will anticipate rehab. We attempted to get her out to rehab on postop day 2. But could not get things coordinated, so she stayed another night. On postoperative day 3., she remained stable. I went by to see her in the morning, I removed her bandages, all the dressings are clean and dry with Steri-Strips in place. She has full strength of her lower extremities. She is tolerating a diet and voiding okay. We anticipate discharge to rehab today on postoperative day 3. She can be started on subQ heparin 5000 units t.i.d. at rehab for DVT prophylaxis. On exam she was awake alert oriented, uncomfortable but no acute distress, full strength of bilateral lower extremities, abdomen obese nondistended nontender no rebound tenderness or guarding, left lower quadrant incision clean and dry no signs of hematoma, back dressing in place, no signs of active bleeding. Patient was given full discharge instructions and activity guidelines. She can follow up in the office in 3 weeks. She does not need a brace. Time Attestation Discharge Coordination Time (in mins): 5 Quality: Safe Use of Opioids Does Pt have an Active Cancer Diagnosis on the Problem List?: No Quality: Stroke Does the patient have a stroke diagnosis?: No Physical Exam Vital Signs: Vital Signs: Last Vital Signs Temp 98.1 F 05/19/24 07:35 Pulse 90 05/19/24 07:35 Resp 18 05/19/24 07:35 BP 135/60 05/19/24 07:35 Pulse Ox 97 05/19/24 07:35 O2 Del Method Nasal Cannula 05/19/24 07:35 O2 Flow Rate 2 05/19/24 07:35 BMI result Body Mass Index 39.0 Discharge Plan Discharge Anticipated Discharge Date/Time: 05/18/24 14:08 Patient Disposition: Xfer Inpatient Rehab Fac Discharge Diagnosis: L3-4 oblique lumbar interbody fusion with revision of posterior instrumentation Referrals: [facility] [Outside] - 1 Week Federico Yates MD [Primary Care Provider] - 1 Week Discharge Medications: New hydromorphone [Dilaudid] 2 mg tablet See Rx Instructions .ROUTE .COMPLEX PRN (Reason: pain) Qty: 40 0RF Rx Instructions: 1-2 tabs po q4 hours prn pain; Partial Fill upon patient request. docusate sodium [Colace] 100 mg capsule 100 mg PO BID Qty: 20 0RF Continued (DME) nebulizer and compressor [Comp-Air Nebulizer Compressor] Device See Rx Instructions .Route Qty: 1 0RF Rx Instructions: As directed (DME) adult diapers medium Medium 0 .Route .MEDSUPPLY Qty: 60 0RF Rx Instructions: Use for incontinence episodes at night. (DME) showering chairs See Rx Instructions .Route .MEDSUPPLY Qty: 1 0RF Rx Instructions: As directed (DME) walker Misc See Rx Instructions .Route Qty: 1 0RF Rx Instructions: As directed (DME) disposable gloves Misc See Rx Instructions .Route Qty: 200 5RF Rx Instructions: Size medium (DME) disposable pads-up to 3/day See Rx Instructions .Route .MEDSUPPLY Qty: 100 5RF Rx Instructions: As directed albuterol sulfate 2.5 mg /3 mL (0.083 %) solution for nebulization 2.5 mg inhalation Q4-6H PRN (Reason: shortness of breath or wheezing) 30 Days Qty: 180 6RF (DME) bed table 0 .Route .MEDSUPPLY Qty: 1 0RF Rx Instructions: As directed (DME) Blood pressure monitor See Rx Instructions .Route .MEDSUPPLY Qty: 1 0RF Rx Instructions: As directed capsaicin 0.025 % cream 1 appl topical BID 30 Days Qty: 60 7RF Rx Instructions: apply to arms, back, legs, affected areas cyclobenzaprine 10 mg tablet 10 mg PO BID PRN (Reason: muscle spasm) 90 Days Qty: 180 0RF lisinopril 5 mg tablet 5 mg PO DAILY 90 Days Qty: 90 0RF simvastatin 20 mg tablet 20 mg PO BEDTIME Qty: 90 0RF montelukast 10 mg tablet 10 mg PO DAILY Qty: 90 0RF pantoprazole 40 mg tablet,delayed release (DR/EC) 40 mg PO DAILY@0630 Qty: 90 0RF trazodone 50 mg tablet 50 mg PO BEDTIME PRN (Reason: Sleep) cetirizine 10 mg tablet 10 mg PO DAILY PRN (Reason: allergies) memantine 10 mg tablet 10 mg PO DAILY duloxetine 20 mg capsule,delayed release(DR/EC) 20 mg PO DAILY 90 Days Qty: 90 1RF Hold Instructions: Doctor's Order ondansetron HCl 4 mg tablet 4 mg PO Q8H PRN (Reason: nausea and vomiting) 30 Days Qty: 30 0RF lorazepam 1 mg tablet 1 mg PO DAILY PRN (Reason: Anxiety) doxepin 10 mg capsule 10 mg PO BEDTIME lorazepam 0.5 mg tablet 0.5 mg PO BEDTIME PRN (Reason: anxiety/insomnia) 30 Days Qty: 30 1RF ipratropium-albuterol 0.5 mg-3 mg(2.5 mg base)/3 mL solution for nebulization 3 ml inhalation Q6H PRN (Reason: wheezing/cough) 30 Days Qty: 180 3RF Discontinued oxycodone 5 mg tablet 5 mg PO ONCE PRN (Reason: pain) 30 Days Qty: 30 0RF Rx Instructions: Partial Fill upon patient request. Discharge Orders: Discharge Order (Routine); Ordered 05/18/24 Ordered By: Jovanni Kim Diet: Advance to usual diet Activity on Discharge: As tolerated Stand Alone Forms: Patient Portal Discharge page Print Language: Bhutanese Activity Restrictions/Additional Instructions: After your spinal surgery we ask you to observe the following restrictions/guidelines: Activity: It is normal to feel some discomfort as you increase your activity, but that will improve with time. We ask you avoid heavy lifting or acitivities that cause pain. As a general rule, 8lbs is a safe limit for lifting right after surgery. Walk as much as you feel comfortable but not to exhaustion. You will feel extra tired the first few days after surgery. Stay well hydrated. It is OK to walk up and down stairs You may return to driving when you are off narcotics (such as vicodin, oxycodone, dilaudid, etc), and you are back to normal functional capacity. If you have any concerns please check with office before driving. Return to work is specific to each patient and each surgery, so please speak with your doctor/PA at first follow up. Please bring paperwork such as FMLA at that time if you need it filled out. Medications: For optimum pain control, it is best to start with a combination of 500 mg of Tylenol every 4 hours with 600 mg of Motrin every 8 hours, and use narcotics as needed in between for breakthrough pain. We will give you a short supply of narcotics after surgery (usually one weeks worth). If you need more please call the office but do not use more than prescribed. You will need to give our office 48 hours notice if you need narcotics refilled and we do not fill narcotics on weekends or evenings. If you are on a narcotic, it is a good idea to take a stool softener such as colace or senna to avoid constipation If you take blood thinner such as aspirin, Plavix, Coumadin, Effient, Eliquis etc for conditions such as Afib, DVT, Pulmonary embolus, coronary disease, stents etc please speak with your surgeon about specific details as to when you can resume these medications. You can resume NSAIDs on post op day 1 (eg: Motrin, Naproxen, etc). Follow up: Please call the office, , after surgery to arrange a 3 week follow up for wound check. Wound Care: You may remove your dressing on the first day after surgery. ?You may ?leave open to air. Please do not remove the steri strips underneath. they will fall off on their own in one week. IT IS NORMAL FOR THE WOUND TO OOZE OR BE BLOODY FOR A FEW DAYS AFTER SURGERY. ?IF THIS HAPPENS JUST PLACE NEW DRESSING OVER IT TO AVOID STAINING CLOTHES. You may shower on post op day # 1 We ask that you do not let the water soak the wound. If it does get wet, just towel dry lightly. Please do not scrub your incision or place any type of chemical/ointment on the wound. No tub baths, pools or jacuzzis for one month. If you have any leaking or redness from your wound, or fevers, please call office Care Plan Goals: Discharge home Health Concerns: None Plan of Treatment: Status post lumbar fusion, discharge home today follow up in the office in 3 weeks Assessment: Stable
--- NOTE | 2024-05-19 09:07 | HO.NEUROPN_ITS ---
Neurosurgery Operative Note Date of Service: 05/19/24 Narrative: Postop day 3., L3-4 oblique lumbar interbody fusion, revision of posterior instrumentation Patient is complaining of some back pain, denies any pain, tingling or numbness radiating down her legs. She had an uneventful night. She has mostly been lying around in the bed. She has been up to the bathroom at times voiding okay. Afebrile, vital signs stable Physical exam: Patient is awake alert oriented uncomfortable when trying to change positions but her strength is grossly normal. I had her sit up at the edge of the bed she is able to do that independently, she did need some assistance with standing up. I removed all of her dressings on her back and on her abdomen. No signs of hematoma, there is some ecchymosis on the skin. Abdomen is morbidly obese, nondistended nontender. Impression: Postop day 3., L3-4 oblique lumbar interbody fusion, revision of posterior instrumentation, patient was initially doing okay and was thought would be safe to go home but she lives in the 3rd floor and was having trouble walking yesterday so we anticipate discharge to rehab today. I continued to find her lying in bed flat, re-emphasized to the nursing staff and to the patient that it is critically important that she gets out of bed every hour and starts moving around. Patient was reluctant to go to rehab because of a negative experience with the rehab in [place] but I reassured her we would get her to a place that would mobilize her better and I did not think that she would be safe to go up 3 flights of stairs to her house. I also re-emphasized to the patient the fact that she needs to sit up use her incentive spirometer, and mobilize or she may develop a significant complication. I anticipate discharge to rehab today. All the following reviewed with Dr. Pulido who agrees with the plan as outlined above.
--- NOTE | 2024-05-19 10:11 | MHC.CM.PN ---
Addendum entered by Erin Bonner 05/19/24 14:16: [facility] HAS INSURANCE AUTH, PT AND DAUGHTER AWARE BLS TRANSPORT HAS BEEN BOOKED WITH [facility] FOR 1600 HOURS Original Note: CM MET WITH PT TO DISCUSS DC PLANNING PT INITIALLY SAYING SHE WILL NOT GO TO STR AND HER DAUGHTER WILL HELP HER AT HOME CM DISCUSSED THE SAFETY CONCERNS RELATED TO HER GOING HOME, SHE THEN SAYS SHE IS NOT GOING BACK TO THE PLACES SHE WENT BEFORE. CM EXPLAINED IT WAS A DIFFERENT STR PT STILL NOT COMMITTING TO A DCP, CM ATTEMPTED TO CONTACT DAUGHTERCORY, X2, MESSAGE LEFT REQUESTING A RETURN CALL CM DID ASK THE SNF TO SUBMIT FOR INSURANCE AUTH IN CASE PT AGREES TO STR
[2024-05-19 10:49] VITALS: BP 135/60; PULSE 90; O2SAT 97
--- NOTE | 2024-05-19 13:57 | P.DS_ITS ---
DS: Providers Provider Date of Service: 05/19/24 Date of admission: 05/16/24 07:08 Primary care physician: Federico Yates MD DS: Diagnosis Discharge Diagnosis (1) Lumbar spinal stenosis due to adjacent segment disease after fusion procedure: Status: Acute DS: Summary Hospital Course Hospital Course: 68-year-old female admitted for elective L3-4 oblique lumbar interbody fusion and revision of posterior instrumentation. The patient underwent procedure without complication. She is brought to the recovery room where she recovered from anesthesia and subsequently brought to the [address] [place] [address] where she began convalescence. Patient was started on oral and IV Dilaudid in addition to IV Tylenol for pain control. Cyclobenzaprine was continued as well. Diet was advanced. Patient was allowed out of bed as tolerated. Her 1st postoperative night was unremarkable. She was seen by PT the next day. She was uncomfortable but did clear to go home with services. She was kept another night for pain control and being slow to mobilize. On postoperative day 2., Dr. Pulido and I saw her in the morning, and she was reporting that she was having more pain in her back after getting out of bed on the left side as opposed to the normally she would get out on the right side. It was giving her a lot of difficulty with standing walking so we sent her for x-rays. Dr. Pulido reviewed the x-rays not see any acute abnormalities just postsurgical instrumentation that was stable. Therefore, it was felt that she was okay for discharge as long as she was getting up moving around. If not we would anticipate sending her to rehab. Physical therapy came back and saw her again and felt that she was too unsteady to go home so we will anticipate rehab. We attempted to get her out to rehab on postop day 2. But could not get things coordinated, so she stayed another night. On postoperative day 3., she remained stable. I went by to see her in the morning, I removed her bandages, all the dressings are clean and dry with Steri- Strips in place. She has full strength of her lower extremities. She is tolerating a diet and voiding okay. We anticipate discharge to rehab today on postoperative day 3. She can be started on subQ heparin 5000 units t.i.d. at rehab for DVT prophylaxis. On exam she was awake alert oriented, uncomfortable but no acute distress, full strength of bilateral lower extremities, abdomen obese nondistended nontender no rebound tenderness or guarding, left lower quadrant incision clean and dry no signs of hematoma, back dressing in place, no signs of active bleeding. Patient was given full discharge instructions and activity guidelines. She can follow up in the office in 3 weeks. She does not need a brace. I expect that the patient will be in rehab less than 30 days. Time Attestation Discharge Coordination Time (in mins): 3 Quality: Safe Use of Opioids Does Pt have an Active Cancer Diagnosis on the Problem List?: No Quality: Stroke Does the patient have a stroke diagnosis?: No Physical Exam 2 Vital Signs: Vital Signs: Last Vital Signs Temp 98.1 F 05/19/24 07:35 Pulse 90 05/19/24 10:49 Resp 18 05/19/24 07:35 BP 135/60 05/19/24 10:49 Pulse Ox 97 05/19/24 10:49 O2 Del Method Nasal Cannula 05/19/24 07:35 O2 Flow Rate 2 05/19/24 07:35 BMI result Body Mass Index 39.0 Discharge Plan Discharge Anticipated Discharge Date/Time: 05/19/24 09:18 Patient Disposition: Xfer Inpatient Rehab Fac Discharge Diagnosis: L3-4 oblique lumbar interbody fusion with revision of posterior instrumentation Referrals: [facility] [Outside] - 1 Week Federico Yates MD [Primary Care Provider] - 1 Week Discharge Medications: New hydromorphone [Dilaudid] 2 mg tablet See Rx Instructions .ROUTE .COMPLEX PRN (Reason: pain) Qty: 40 0RF Rx Instructions: 1-2 tabs po q4 hours prn pain; Partial Fill upon patient request. docusate sodium [Colace] 100 mg capsule 100 mg PO BID Qty: 20 0RF Continued (DME) nebulizer and compressor [Comp-Air Nebulizer Compressor] Device See Rx Instructions .Route Qty: 1 0RF Rx Instructions: As directed (DME) adult diapers medium Medium 0 .Route .MEDSUPPLY Qty: 60 0RF Rx Instructions: Use for incontinence episodes at night. (DME) showering chairs See Rx Instructions .Route .MEDSUPPLY Qty: 1 0RF Rx Instructions: As directed (DME) walker Misc See Rx Instructions .Route Qty: 1 0RF Rx Instructions: As directed (DME) disposable gloves Misc See Rx Instructions .Route Qty: 200 5RF Rx Instructions: Size medium (DME) disposable pads-up to 3/day See Rx Instructions .Route .MEDSUPPLY Qty: 100 5RF Rx Instructions: As directed albuterol sulfate 2.5 mg /3 mL (0.083 %) solution for nebulization 2.5 mg inhalation Q4-6H PRN (Reason: shortness of breath or wheezing) 30 Days Qty: 180 6RF (DME) bed table 0 .Route .MEDSUPPLY Qty: 1 0RF Rx Instructions: As directed (DME) Blood pressure monitor See Rx Instructions .Route .MEDSUPPLY Qty: 1 0RF Rx Instructions: As directed capsaicin 0.025 % cream 1 appl topical BID 30 Days Qty: 60 7RF Rx Instructions: apply to arms, back, legs, affected areas cyclobenzaprine 10 mg tablet 10 mg PO BID PRN (Reason: muscle spasm) 90 Days Qty: 180 0RF lisinopril 5 mg tablet 5 mg PO DAILY 90 Days Qty: 90 0RF simvastatin 20 mg tablet 20 mg PO BEDTIME Qty: 90 0RF montelukast 10 mg tablet 10 mg PO DAILY Qty: 90 0RF pantoprazole 40 mg tablet,delayed release (DR/EC) 40 mg PO DAILY@0630 Qty: 90 0RF trazodone 50 mg tablet 50 mg PO BEDTIME PRN (Reason: Sleep) cetirizine 10 mg tablet 10 mg PO DAILY PRN (Reason: allergies) memantine 10 mg tablet 10 mg PO DAILY duloxetine 20 mg capsule,delayed release(DR/EC) 20 mg PO DAILY 90 Days Qty: 90 1RF Hold Instructions: Doctor's Order ondansetron HCl 4 mg tablet 4 mg PO Q8H PRN (Reason: nausea and vomiting) 30 Days Qty: 30 0RF lorazepam 1 mg tablet 1 mg PO DAILY PRN (Reason: Anxiety) doxepin 10 mg capsule 10 mg PO BEDTIME lorazepam 0.5 mg tablet 0.5 mg PO BEDTIME PRN (Reason: anxiety/insomnia) 30 Days Qty: 30 1RF ipratropium-albuterol 0.5 mg-3 mg(2.5 mg base)/3 mL solution for nebulization 3 ml inhalation Q6H PRN (Reason: wheezing/cough) 30 Days Qty: 180 3RF Discontinued oxycodone 5 mg tablet 5 mg PO ONCE PRN (Reason: pain) 30 Days Qty: 30 0RF Rx Instructions: Partial Fill upon patient request. Discharge Orders: Discharge Order (Routine); Ordered 05/18/24 Ordered By: Jovanni Kim Diet: Advance to usual diet Activity on Discharge: As tolerated Stand Alone Forms: Patient Portal Discharge page Print Language: Citizen Of [place] Activity Restrictions/Additional Instructions: After your spinal surgery we ask you to observe the following restrictions/guidelines: Activity: It is normal to feel some discomfort as you increase your activity, but that will improve with time. We ask you avoid heavy lifting or acitivities that cause pain. As a general rule, 8lbs is a safe limit for lifting right after surgery. Walk as much as you feel comfortable but not to exhaustion. You will feel extra tired the first few days after surgery. Stay well hydrated. It is OK to walk up and down stairs You may return to driving when you are off narcotics (such as vicodin, oxycodone, dilaudid, etc), and you are back to normal functional capacity. If you have any concerns please check with office before driving. Return to work is specific to each patient and each surgery, so please speak with your doctor/PA at first follow up. Please bring paperwork such as FMLA at that time if you need it filled out. Medications: For optimum pain control, it is best to start with a combination of 500 mg of Tylenol every 4 hours with 600 mg of Motrin every 8 hours, and use narcotics as needed in between for breakthrough pain. We will give you a short supply of narcotics after surgery (usually one weeks worth). If you need more please call the office but do not use more than prescribed. You will need to give our office 48 hours notice if you need narcotics refilled and we do not fill narcotics on weekends or evenings. If you are on a narcotic, it is a good idea to take a stool softener such as colace or senna to avoid constipation If you take blood thinner such as aspirin, Plavix, Coumadin, Effient, Eliquis etc for conditions such as Afib, DVT, Pulmonary embolus, coronary disease, stents etc please speak with your surgeon about specific details as to when you can resume these medications. You can resume NSAIDs on post op day 1 (eg: Motrin, Naproxen, etc). Follow up: Please call the office, , after surgery to arrange a 3 week follow up for wound check. Wound Care: You may remove your dressing on the first day after surgery. ?You may ?leave open to air. Please do not remove the steri strips underneath. they will fall off on their own in one week. IT IS NORMAL FOR THE WOUND TO OOZE OR BE BLOODY FOR A FEW DAYS AFTER SURGERY. ?IF THIS HAPPENS JUST PLACE NEW DRESSING OVER IT TO AVOID STAINING CLOTHES. You may shower on post op day # 1 We ask that you do not let the water soak the wound. If it does get wet, just towel dry lightly. Please do not scrub your incision or place any type of chemical/ointment on the wound. No tub baths, pools or jacuzzis for one month. If you have any leaking or redness from your wound, or fevers, please call office Care Plan Goals: Discharge home Health Concerns: None Plan of Treatment: Status post lumbar fusion, discharge home today follow up in the office in 3 weeks Assessment: Stable
[2024-05-19] MEDS: HYDROmorphone HCl 2 MG TABLET PO (14:07)
--- NOTE | 2024-05-19 14:37 | MHC.CM.PN ---
[facility] AUTH OBTAINED FOR TRANSPORT , BOOKING ID # [id number]
[2024-05-19] MEDS: Albuterol/Iprat 2.5/0.5MG 3 ML AMPUL.NEB INHALE (15:42)
[2024-05-19 15:45] VITALS: BP 174/79; PULSE 91; RESP 20; TEMP 37; O2SAT 100
[2024-05-19 15:47] VITALS: PULSE 90; RESP 18; O2SAT 97
[2024-05-19 16:30] VITALS: RESP 18
--- NOTE | 2024-07-19 13:03 | P.F2F_ITS ---
Service Date Service Date: 07/19/24 Encounter Date of encounter: 07/19/24 Reasons for Services Signs and symptoms assessed: s/p L3-4 lumbar fusion; continued deconditioning and weakness. Difficulty with ambulation Reason for physical therapy: home safety and mobility, therapeutic exercises, gait/transfer training and ADL training Homebound: Leaving the home is medically contraindicated at this time without the asist of a device and/or another person due th the listed conditions above and below. Reason homebound: unsteady gait / fall risk, pain with ambulation, poor balance / fall risk, cognitively impaired / unsafe and weakness related to hospital stay Certification: Based on the above findings, I certify that this patient is confined to the home and needs intermittent senior care care, physical therapy and/or speech therapy, or continues to need occupational therapy. The patient is under my care, and I have initiated the establishment of the plan of care. The patient will be followed by a physician who will periodically review the plan of care. Time Spent With Patient Time: Total time managing care of this patient today _15___ minutes.
== END 2024-05-19 17:32 | DRG 460 ==
LOC: HO.SSSA 07:19 → HO.S3 15:23
PROVIDERS: Neurological Surgery; Nurse Practitioner; Admitting Provider Physician Assistant; PCP Internal Medicine; Visit Provider Physician Assistant
PROC: 0SG00A0 Fusion of Lumbar Vertebral Joint with Interbody Fusion Device, Anterior Approach, Anterior Column, Open Approach (ICD-10-PCS; principal; 2024-05-16 10:30)
DX: M48.062 Spinal stenosis, lumbar region with neurogenic claudication (principal); M51.36 Other intervertebral disc degeneration, lumbar region; J45.909 Unspecified asthma, uncomplicated; K21.9 Gastro-esophageal reflux disease without esophagitis; F03.90 Unspecified dementia, unspecified severity, without behavioral disturbance, psychotic disturbance, mood disturbance, and anxiety; G47.33 Obstructive sleep apnea (adult) (pediatric); M06.9 Rheumatoid arthritis, unspecified; Z98.1 Arthrodesis status
CPT/HCPCS: 36415; 72100; 80048; 85027; 86850; 86900; 86901; 93005; 94640; 97162; 97530; C1713; C1889; C9290; J0131; J0665; J0690; J1100; J1170; J2250; J2371; J2405; J2704; J3010; L8699

== ENCOUNTER → 2024-05-16 07:08 | Outpatient (BNV) | payer OTHER, SELFPAY | PROVIDERS: Admitting Provider Physician Assistant; PCP Internal Medicine; Visit Provider Neurological Surgery | DX: M48.061 Spinal stenosis, lumbar region without neurogenic claudication (principal) | CPT/HCPCS: 20930; 22558; 22612; 22840; 22853; 99024; 99499; G0180 ==

== ENCOUNTER → 2024-05-16 07:08 | Outpatient (BNV) | payer OTHER, SELFPAY | PROVIDERS: Admitting Provider Physician Assistant; PCP Internal Medicine; Visit Provider Internal Medicine Cardiovascular Disease | DX: Z01.818 Encounter for other preprocedural examination (principal) | CPT/HCPCS: 93010 ==

== ENCOUNTER 2024-06-06 14:18 | Outpatient (AMB) | payer OTHER, SELFPAY ==
--- NOTE | 2024-06-06 14:22 | HO.SPINEOV ---
Intake Visit Reasons: 1st post op Intake Note: Ms. Uriel Cool is here today for her 1st post op visit. Cv/Cvn Cv Tsc System Operator Required: No Allergies acetaminophen [From Tylenol] Allergy (Severe, Verified 05/16/24 07:19) Shortness of Breath ibuprofen Allergy (Severe, Verified 05/16/24 07:19) shortness of breath canned food Allergy (Intermediate, Uncoded 05/16/24 07:19) Shortness of Breath Assessment & Plan Assessment & Plan (1) S/P lumbar fusion: Code(s): Z98.1 - Arthrodesis status Category: Surgical Plan Procedure: 3-4 OLIF Ms. Trevino comes in today for her 1st postoperative visit. She reports that she has been doing generally well since the surgery, however has continued to have shooting pains into her right anterior thigh/knee when she attempts ambulation. She states that this pain has not resolved since the surgery. She has continued to use her pain medications, but feels she needs something more for nerve pain. I will order her gabapentin to assist with this pain. She also requested physical therapy/home nursing to help her with wound healing. I will order both of these and complete the [id number] encounter. No new neurological deficits. The patient ambulates well without the need for a wheelchair, but feels more comfortable in a wheelchair and has been using a wheelchair. I was able to have her ambulate around the exam room without issue during this encounter. Her rhona-lateral incision site and posterior incision sites are clean dry, intact without any evidence of serosanguineous drainage. I will order the patient's gabapentin and complete a [id number] encounter for. We would like to follow up in 6 weeks with her and obtain a set of x-rays. Mark Pulido MD,PhD [facility] Coding Level of Care Code Global (23430) Diagnoses S/P lumbar fusion Z98.1
== END 2024-06-06 14:40 | disposition home or self-care (01) ==
PROVIDERS: PCP Internal Medicine; Visit Provider Physician Assistant
DX: Z98.1 Arthrodesis status (principal)
CPT/HCPCS: 99024

== ENCOUNTER → 2024-06-06 14:18 | Outpatient (BNVA) | payer OTHER, SELFPAY ==
--- NOTE | 2024-06-06 14:51 | P.F2F_ITS ---
Service Date Service Date: 06/06/24 Encounter Date of encounter: 06/06/24 Reasons for Services Signs and symptoms assessed: s/p lumbar fusion, significant trouble mobilizing Reason for residential: neurological assessment, wound care, medication management and medication treatment Reason for physical therapy: home safety and mobility, therapeutic exercises, gait/transfer training and ADL training Homebound: Leaving the home is medically contraindicated at this time without the asist of a device and/or another person due th the listed conditions above and below. Reason homebound: unsteady gait / fall risk, leg weakness, pain with ambulation, poor balance / fall risk and weakness related to hospital stay Certification: Based on the above findings, I certify that this patient is confined to the home and needs intermittent residential care, physical therapy and/or speech therapy, or continues to need occupational therapy. The patient is under my care, and I have initiated the establishment of the plan of care. The patient will be followed by a physician who will periodically review the plan of care. Time Spent With Patient Time: Total time managing care of this patient today __25__ minutes.
== END ==
PROVIDERS: PCP Internal Medicine; Visit Provider Physician Assistant
DX: Z47.89 Encounter for other orthopedic aftercare (principal); Z98.1 Arthrodesis status; Z98.890 Other specified postprocedural states
CPT/HCPCS: 99212; G0180

== ENCOUNTER 2024-06-15 07:56 | Outpatient (AMB) | payer OTHER, SELFPAY ==
--- NOTE | 2024-06-15 08:25 | A.OFFPC_ITS ---
Intake Visit Reasons: Regular Check upp Allergies acetaminophen [From Tylenol] Allergy (Severe, Verified 06/15/24 08:25) Shortness of Breath ibuprofen Allergy (Severe, Verified 06/15/24 08:25) shortness of breath canned food Allergy (Intermediate, Uncoded 05/16/24 07:19) Shortness of Breath Medication List - Last Reconciled 06/15/24 by Federico Yates MD [adult diapers medium Use for incontinence episodes at night.] albuterol sulfate 2.5 mg (3 mL) inhalation Q4-6H PRN 30 days [bed table As directed] [Blood pressure monitor As directed] capsaicin 0.025% 1 appl topical BID 30 days cetirizine 10 mg PO DAILY PRN disposable gloves Size medium [disposable pads-up to 3/day As directed] docusate sodium (Colace) 100 mg PO BID doxepin 10 mg PO BEDTIME duloxetine 20 mg PO DAILY 90 days gabapentin 100 mg PO TID hydromorphone (Dilaudid) 1-2 tabs po q4 hours prn pain; Partial Fill upon patient request. ipratropium-albuterol 0.5 mg-3 mg(2.5 mg base)/3 mL 3 mL inhalation Q6H PRN 30 days lisinopril 5 mg PO DAILY 90 days lorazepam 1 mg PO DAILY PRN lorazepam 0.5 mg PO BEDTIME PRN 30 days memantine 10 mg PO DAILY montelukast 10 mg PO DAILY nebulizer and compressor (Comp-Air Nebulizer Compressor) As directed ondansetron HCl 4 mg PO Q8H PRN 30 days pantoprazole 40 mg PO DAILY@0630 [showering chairs As directed] simvastatin 20 mg PO BEDTIME trazodone 50 mg PO BEDTIME PRN walker As directed Tobacco use date assessed: 06/15/24 Fall risk assessment: No Falls in past year Last assessed Fall Risk: 06/15/24 Dental Screening Dental Screen Date: 06/15/24 Did you have a dental visit in the last 12 months?: Yes Did you have a dental problem in the last 6 months where you did not have access to dental care?: No Was dental information given to patient?: Patient has dentist HPI Regular Check upp HPI Details Patient is doing well taking her meds as prescribed allergies are stable, taking zyrtec PRN she is going in for Dexa sacan sept 5 we talked about the possibility of Osteoprosis and if she started medication fosamax, how to take it but we will wait for the report she is requesting refill on Zofran , which i have sent for her patient has chronic Nausea off and on PFSH Medical History GERD (gastroesophageal reflux disease) Cold intolerance Dementia Rheumatoid arthritis Lumbar spinal stenosis RAÚL (obstructive sleep apnea) Trigger finger Sleep disorder breathing Latent tuberculosis Cough Asthma Chronic pain syndrome Myofascial muscle pain Osteoarthritis Fibromyalgia HTN (hypertension) Anxiety Surgical History Hx of ovarian cystectomy Hx of cervical discectomy History of lumbar surgery Family History Father Diabetes Mother Acute arthritis Other Mental health disorder Social History Household Members: None Housing: Apartment Are you a primary childcare administrator to a significant other at home: No Do you presently have visiting nurse or other home services: Yes ([employer].) Alcohol intake: never Comment: COUNTS CORRECT Patient Tobacco Use Status: Never used Tobacco e-Cigarette/Vaping Use: Never Used Advance Directives Date on File: 02/26/22 service: No Current occupational status: unemployed Cognitive needs: No Hearing needs: No Vision needs: No Questionnaire Thrive Questionnaire Date Thrive assessed: 05/17/24 AUDIT C Alcohol Use Questionnaire (AUDIT-C) 1. How often do you have a drink containing alcohol?: Never 3. How often do you have six or more drinks on one occasion?: Never Total Score: 0 Score Reviewed/Action Taken: Yes MATTHEW-7 AMB Questionnaire MATTHEW-7 Date MATTHEW - 7 assessed: 12/02/23 Source: Developed by Drs. Bj Ingram, Yolanda Glass, Dexter Ferguson and colleagues, with an educational jesus from [employer]. Review of Systems Const Denies chills and Denies fever(s) ENT Denies epistaxis and Denies nasal discharge Card Denies chest pain Resp Denies chest congestion, Denies cough and Denies hemoptysis GI Denies diarrhea Skin/Breast Denies rash Neuro Reports no additional complaints Psych Reports no additional complaints Endo Reports no additional complaints Physical exam (Primary Care) Tobacco/Smoking Status: Tobacco use Status Tobacco use date assessed 06/15/24 06/15/24 08:27 Patient Tobacco Use Status Never used Tobacco 06/15/24 08:27 e-Cigarette/Vaping Use Never Used 06/15/24 08:27 Thrive Assessment: Date of Thrive Assessment Date Thrive assessed 05/17/24 06/15/24 08:27 Telehealth Telehealth Telehealth Platform: [employer] Location of provider rendering services: practice address Location of patient: address on file Patient Identification confirmed using: Name, : Yes Telehealth method: voice only Patient verbally consented to treatment: Yes Patient verbally consented to billing insurance company: Yes Patient informed of any privacy concerns related to visit: Yes Minutes spent on Phone/Video with Pt.: 13 Assessment and Plan Assessment & Plan (1) Menopausal state: Code(s): N95.1 - Menopausal and female climacteric states (2) Impaired mobility: Code(s): Z74.09 - Other reduced mobility (3) Chronic nausea: Code(s): R11.0 - Nausea (4) Environmental allergies: Code(s): Z91.09 - Other allergy status, other than to drugs and biological substances Plan Patient is doing well taking her meds as prescribed allergies are stable, taking zyrtec PRN she is going in for Dexa sacan sept 5 we talked about the possibility of Osteoprosis and if she started medication fosamax, how to take it but we will wait for the report she is requesting refill on Zofran , which i have sent for her patient has chronic Nausea off and on Medications: Refilled ondansetron HCl 4 mg PO Q8H 30 days PRN 30 tabs 0RF nausea and vomiting R11.0 - Nausea Coding Level of Care Code Tele Est Pt Level 3 (17072) Diagnoses Menopausal state N95.1 Impaired mobility Z74.09 Chronic nausea R11.0 Environmental allergies Z91.09
== END 2024-06-15 09:22 | disposition home or self-care (01) ==
LOC: HO.HMGC 07:56
PROVIDERS: PCP Internal Medicine; Visit Provider Internal Medicine
DX: N95.1 Menopausal and female climacteric states (principal); Z74.09 Other reduced mobility; R11.0 Nausea; Z91.09 Other allergy status, other than to drugs and biological substances
CPT/HCPCS: 99442

== ENCOUNTER 2024-06-20 15:10 | Outpatient (AMB) | payer OTHER, SELFPAY ==
--- NOTE | 2024-06-20 15:15 | MHC.OFFVIS ---
Vital Signs 06/20/24 15:16 Height 4 ft 11 in Weight 183 lb BMI 37.0 Respiration 16 Pulse 99 Pulse Source Pulse Oximeter Pulse Oximetry (%) 98 Oxygen Delivery Method Room Air Intake Visit Reasons: 3m follow up Amnesia-LVM Intake Note: Pt presents for a one year follow up for dementia. Health Insurance Assessor Required: No Allergies acetaminophen [From Tylenol] Allergy (Severe, Verified 06/20/24 15:22) Shortness of Breath ibuprofen Allergy (Severe, Verified 06/20/24 15:22) shortness of breath canned food Allergy (Intermediate, Uncoded 06/20/24 15:22) Shortness of Breath Medication List - Last Reconciled 06/20/24 by Izzy Sandhu MD [adult diapers medium Use for incontinence episodes at night.] albuterol sulfate 2.5 mg (3 mL) inhalation Q4-6H PRN 30 days [bed table As directed] [Blood pressure monitor As directed] capsaicin 0.025% 1 appl topical BID 30 days cetirizine 10 mg PO DAILY PRN disposable gloves Size medium [disposable pads-up to 3/day As directed] docusate sodium (Colace) 100 mg PO BID doxepin 10 mg PO BEDTIME duloxetine 20 mg PO DAILY 90 days gabapentin 100 mg PO TID hydromorphone (Dilaudid) Take 1 tab every 6-8 hours as needed for severe pain; Partial Fill upon patient request. ipratropium-albuterol 0.5 mg-3 mg(2.5 mg base)/3 mL 3 mL inhalation Q6H PRN 30 days lisinopril 5 mg PO DAILY 90 days lorazepam 1 mg PO DAILY PRN lorazepam 0.5 mg PO BEDTIME PRN 30 days memantine 10 mg PO DAILY montelukast 10 mg PO DAILY nebulizer and compressor (Comp-Air Nebulizer Compressor) As directed ondansetron HCl 4 mg PO Q8H PRN 30 days pantoprazole 40 mg PO DAILY@0630 [showering chairs As directed] simvastatin 20 mg PO BEDTIME trazodone 50 mg PO BEDTIME PRN walker As directed HPI Comments Details: 68 y/o female patient with HTN presents for follow up of cognitive disorder. She had lumbar spine surgery 1 month ago . she reports short term memory issues . she has trouble remembering conversations , misplaces things around the house. 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 Pt had CT and MRI of head and the result was no acute infarct, mass lesion, intracranial hemorrhage or evidence of hydrocephalus. She doesn't remember what medication she takes, and stating that she keeps forgetting to take medications. [facility] Medical History (Updated 06/20/24 @ 15:38 by Izzy Sandhu MD) Cognitive disorder Hand numbness GERD (gastroesophageal reflux disease) Cold intolerance Rheumatoid arthritis Lumbar spinal stenosis RAÚL (obstructive sleep apnea) Trigger finger Sleep disorder breathing Latent tuberculosis Cough Asthma Chronic pain syndrome Myofascial muscle pain Osteoarthritis Fibromyalgia HTN (hypertension) Anxiety Surgical History Hx of ovarian cystectomy Hx of cervical discectomy History of lumbar surgery Family History Father Diabetes Mother Acute arthritis Other Mental health disorder Social History Household Members: None Housing: Apartment Are you a primary acute care occupational therapist to a significant other at home: No Do you presently have visiting nurse or other home services: 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 Patient says she is pain , says she is confused with date . She is wearing a winter jacket ( it is summer ) and say it is very cold and there is snow. she says she has a daughter who took care of her during surgery .But now she [employer] school and is very busy. General: in distress and anxious Nutritional Appearance: obese and overweight Neuro Other: speech- normal Face - symmetrical Gait with walker - antalgic No further exam was done Assessment & Plan Assessment & Plan (1) Cognitive disorder: Code(s): F09 - Unspecified mental disorder due to known physiological condition Category: Medical Plan Sufficient history and exam was not conducted today as the patient came alone and was unable to provide history She speaks [place] but I am not sure if she was able to comprehend so i was not able to do a detailed MMSE . she is also on gabapentin and pain medications which could affect her cognition Her poor sleep is likely contributing as well she is scheduled for home sleep test by . She needs to be referred to a turn out worker to get more support at home and for clinical visits she can be reevaluated after 6 mths when she is accompanied by a family member or a friend. Coding Level of Care Code Est Pt Level 4 (55349) Complex EM visit Add On G2211 Diagnoses Cognitive disorder F09
[2024-06-20 15:16] VITALS: PULSE 99; RESP 16; O2SAT 98; BMI 37.0
== END 2024-06-20 15:47 | disposition home or self-care (01) ==
PROVIDERS: Absent Provider Psychiatry & Neurology Neurology; PCP Internal Medicine; Visit Provider Psychiatry & Neurology Neurology
DX: R41.89 Other symptoms and signs involving cognitive functions and awareness (principal)
CPT/HCPCS: 99213; G2211

== ENCOUNTER → 2024-06-20 15:10 | Outpatient (BNVA) | payer OTHER, SELFPAY | PROVIDERS: Absent Provider Psychiatry & Neurology Neurology; PCP Internal Medicine; Visit Provider Psychiatry & Neurology Neurology | DX: F09 Unspecified mental disorder due to known physiological condition (principal) | CPT/HCPCS: 99212 ==

== ENCOUNTER 2024-06-22 14:15 | Outpatient (REF) | payer OTHER, SELFPAY ==
--- NOTE | ~2024-06-22 | MM_ITS ---
EXAMINATION: BONE DENSITOMETRY CLINICAL INDICATION: Menopause. COMPARISON: This is the patient's baseline examination. TECHNIQUE: Using a [employer] DXA System (software version: 13.1) manufactured by [employer], dual-energy x-ray absorptiometry was performed of the lumbar spine and left hip. The images are of good technical quality. Summary results are attached. FINDINGS: LEFT FEMUR, NECK: BMD 0.803 g/cm2, Z-score -0.6, T-score -1.7, osteopenia. LEFT FEMUR, TOTAL: BMD 0.846 g/cm2, Z-score -0.5, T-score -1.3, osteopenia. AP SPINE L1-L3 (excluding L4): The data of L1-L4 has been changed to exclude the L4 vertebral body, because metallic hardware at this level may cause overestimation of lumbar spine density. BMD 0.776 g/cm2, Z-score -2.4, T-score -3.3, osteoporosis. IDENTIFIED RISK FACTORS: Menopause, height loss, anticonvulsant, osteoporosis, recurrent falls, rheumatoid arthritis. HISTORY OF FRACTURE: None listed. MEDICATIONS: None listed. MM/XR DEXA axial skeleton IMPRESSION: 1. DIAGNOSIS: Osteoporosis based on the lowest T-score value of -3.3 in the lumbar spine applying World Health Organization criteria. 2. 10-YEAR FRACTURE RISK PREDICTION, FRAX: According to the guidelines, FRAX calculation should only be performed on patients in the osteopenia bone density category. Therefore, FRAX was not performed on this patient. 3. Treatment Recommendations: NOF guidelines recommend consideration for treatment in postmenopausal women and men age 50 and older presenting with the following: -A hip or vertebral (clinical or morphometric) fracture. -T-score less than or equal to -2.5 at the femoral neck or spine after appropriate evaluation to exclude secondary causes. -Low bone mass at the hip or spine and a 10-year fracture probability by FRAX of greater than or equal to 3% for hip fracture or greater than or equal to 20% for major osteoporotic fracture based on the [place] adapted WHO algorithm. 4. Other Recommendations: All treatment decisions require clinical judgment and consideration of individual patient factors, including patient preferences, comorbidities, previous drug use, risk factors not captured in the FRAX model (e.g. frailty, falls, vitamin D deficiency, increased bone turnover, interval significant decline in bone density) and possible under or overestimation of fracture risk by FRAX. Additional medical evaluation for secondary cause of low bone mineral density may be appropriate. FUTURE SCAN RECOMMENDATION: People with diagnosed cases of osteoporosis or at high risk for fracture should have regular bone mineral density tests. For patients eligible for Medicare, routine testing is allowed once every 2 years. The testing frequency can be increased to one year for patients who have rapidly progressing disease, those who are receiving or discontinuing medical therapy to restore bone mass, or have additional risk factors. Electronically signed by: Kenney Perez MD 06/28/2024 01:08 PM EDT
--- NOTE | ~2024-06-22 | MM_ITS ---
EXAMINATION: MM SCREENING DIGITAL BREAST TOMOSYNTHESIS, BILATERAL CLINICAL INFORMATION: Screening. Asymptomatic. COMPARISON: Mammography: Baseline. TECHNIQUE: Digital breast mammography with tomosynthesis is performed in both the craniocaudal and mediolateral oblique views along with computer-aided detection (CAD). FINDINGS: There are scattered areas of fibroglandular density (ACR BI-RADS breast composition Category b). There are no significant masses, abnormal calcifications, or other abnormalities. MM/MM tomosynthesis screening BI IMPRESSION: No mammographic evidence of malignancy. ASSESSMENT: BI-RADS BI-RADS 1 - Negative RECOMMENDATION: Routine annual mammography screening. 1 year F/U This examination should not preclude the clinical evaluation of a suspicious palpable abnormality. This patient's information was entered into a reminder system with a target due date for their next mammogram. Electronically signed by: Antionette Sorenson DO 07/09/2024 03:00 PM EDT
== END 2024-06-22 14:16 | disposition home or self-care (01) ==
LOC: HO.MAMMO 14:15
PROVIDERS: PCP Internal Medicine; Visit Provider Internal Medicine
DX: Z12.31 Encounter for screening mammogram for malignant neoplasm of breast (principal); Z13.820 Encounter for screening for osteoporosis; Z78.0 Asymptomatic menopausal state
CPT/HCPCS: 77063; 77067; 77080

== ENCOUNTER → 2024-06-22 14:15 | Outpatient (BNV) | payer OTHER, SELFPAY | PROVIDERS: PCP Internal Medicine; Visit Provider Internal Medicine | DX: Z12.31 Encounter for screening mammogram for malignant neoplasm of breast (principal) | CPT/HCPCS: 77063; 77067 ==

== ENCOUNTER 2024-07-05 09:25 | Outpatient (AMB) | payer OTHER, SELFPAY ==
[2024-07-05 09:33] VITALS: BP 152/68; PULSE 100; O2SAT 96; BMI 37.6
--- NOTE | 2024-07-05 09:33 | MHC.PC.OV ---
Vital Signs 07/05/24 09:33 Height 4 ft 11 in Weight 186 lb 6 oz BMI 37.6 BP 152/68 H Blood Pressure Location Rt brachial Position Sitting Pulse 100 Pulse Source Pulse Oximeter Pulse Oximetry (%) 96 Oxygen Delivery Method Room Air Intake Visit Reasons: Medicine Review Allergies acetaminophen [From Tylenol] Allergy (Severe, Verified 06/20/24 15:22) Shortness of Breath ibuprofen Allergy (Severe, Verified 06/20/24 15:22) shortness of breath canned food Allergy (Intermediate, Uncoded 06/20/24 15:22) Shortness of Breath Medication List - Last Reconciled 07/05/24 by Federico aYtes MD [adult diapers medium Use for incontinence episodes at night.] albuterol sulfate 2.5 mg (3 mL) inhalation Q4-6H PRN 30 days [bed table As directed] [Blood pressure monitor As directed] capsaicin 0.025% 1 appl topical BID 30 days cetirizine 10 mg PO DAILY PRN disposable gloves Size medium [disposable pads-up to 3/day As directed] docusate sodium (Colace) 100 mg PO BID doxepin 10 mg PO BEDTIME duloxetine 20 mg PO DAILY 90 days gabapentin 100 mg PO TID ipratropium-albuterol 0.5 mg-3 mg(2.5 mg base)/3 mL 3 mL inhalation Q6H PRN 30 days lisinopril 5 mg PO DAILY 90 days lorazepam 1 mg PO DAILY PRN lorazepam 0.5 mg PO BEDTIME PRN 30 days memantine 10 mg PO DAILY montelukast 10 mg PO DAILY nebulizer and compressor (Comp-Air Nebulizer Compressor) As directed ondansetron HCl 4 mg PO Q8H PRN 30 days pantoprazole 40 mg PO DAILY@0630 [showering chairs As directed] simvastatin 20 mg PO BEDTIME trazodone 50 mg PO BEDTIME PRN walker As directed Tobacco use date assessed: 07/05/24 Fall risk assessment: No Falls in past year Last assessed Fall Risk: 07/05/24 Dental Screening Dental Screen Date: 07/05/24 Did you have a dental visit in the last 12 months?: Yes Did you have a dental problem in the last 6 months where you did not have access to dental care?: No Was dental information given to patient?: Patient has dentist HPI Medicine Review HPI Details Patient is 68 year female came today for a follow-up appointment Patient had bone density done recently and found to have osteoporosis We talked about starting Fosamax, explained to patient how to take the medication And script sent She suffers from fibromyalgia and multiple joint arthritis She has appointment coming up with Dr. Zheng [facility] She suffers from depression, and is seeing a psych med prescriber She is taking doxepin and lorazepam I have told her to have psych roll picker the script for Cymbalta She is taking gabapentin for her body pain as needed Allergies are stable with cetirizine, and montelukast Constipation stable with Colace GERD is stable with pantoprazole She is taking simvastatin 20 mg for lipid control She is on lisinopril 5 mg for blood pressure management, I see that her blood pressure is elevated I would recommend to start monitoring it at home and if it stays above 140 systolic to double the dose and notify me Patient is also on memantine through neurology Patient sees Dr. Roach for her respiratory medications Following medications from PCP office Cetirizine, montelukast, gabapentin, simvastatin Pantoprazole, Zofran, lisinopril, and now Fosamax Follow-up 3 months PFS Medical History Cognitive disorder Hand numbness GERD (gastroesophageal reflux disease) Cold intolerance Rheumatoid arthritis Lumbar spinal stenosis RAÚL (obstructive sleep apnea) Trigger finger Sleep disorder breathing Latent tuberculosis Cough Asthma Chronic pain syndrome Myofascial muscle pain Osteoarthritis Fibromyalgia HTN (hypertension) Anxiety Surgical History Hx of ovarian cystectomy Hx of cervical discectomy History of lumbar surgery Family History Father Diabetes Mother Acute arthritis Other Mental health disorder Social History Household Members: None Housing: Apartment Are you a primary personal care service provider to a significant other at home: No Do you presently have visiting nurse or other home services: Yes ([employer].) Alcohol intake: never Comment: COUNTS CORRECT Patient Tobacco Use Status: Never used Tobacco e-Cigarette/Vaping Use: Never Used Advance Directives Date on File: 02/26/22 service: No Current occupational status: unemployed Cognitive needs: No Hearing needs: No Vision needs: No Questionnaire Thrive Questionnaire Date Thrive assessed: 05/17/24 AUDIT C Alcohol Use Questionnaire (AUDIT-C) 1. How often do you have a drink containing alcohol?: Never 3. How often do you have six or more drinks on one occasion?: Never Total Score: 0 Score Reviewed/Action Taken: Yes MATTHEW-7 AMB Questionnaire MATTHEW-7 Date MATTHEW - 7 assessed: 12/02/23 Source: Developed by Drs. Bj Ingram, Yolanda Glass, Dexter Ferguson and colleagues, with an educational jesus from [employer]. Review of Systems Const Denies chills and Denies fever(s) ENT Denies epistaxis and Denies nasal discharge Card Denies chest pain Resp Denies chest congestion, Denies cough and Denies hemoptysis GI Denies diarrhea Skin/Breast Denies rash Neuro Reports no additional complaints Psych Reports no additional complaints Endo Reports no additional complaints Physical exam (Primary Care) Vital Signs: Last Vital Signs Pulse 100 07/05/24 09:33 BP 152/68 H 07/05/24 09:33 Pulse Ox 96 07/05/24 09:33 Oxygen Delivery Method Room Air 07/05/24 09:33 BMI result Body Mass Index 37.6 Tobacco/Smoking Status: Tobacco use Status Tobacco use date assessed 07/05/24 07/05/24 09:40 Patient Tobacco Use Status Never used Tobacco 07/05/24 09:40 e-Cigarette/Vaping Use Never Used 07/05/24 09:40 Thrive Assessment: Date of Thrive Assessment Date Thrive assessed 05/17/24 07/05/24 09:40 Const General: cooperative, comfortable and no acute distress Orientation/consciousness: patient oriented x3 HENMT Head: Yes normocephalic Eyes General: appearance normal, both eyes and all related structures Neck Neck: Yes supple Resp Effort & Inspection: normal respiratory effort, no cough and no stridor Cardio Rhythm: regular rhythm Heart sounds: S1 normal heart sound present and S2 normal heart sound present Skin General skin exam: turgor normal Neuro General: patient oriented x3, tone normal and moves all extremities Extrem Right lower extremity: no edema Left lower extremity: no edema Assessment and Plan Assessment & Plan (1) Hypertension, essential: Code(s): I10 - Essential (primary) hypertension (2) Environmental allergies: Code(s): Z91.09 - Other allergy status, other than to drugs and biological substances (3) Chronic GERD: Code(s): K21.9 - Gastro-esophageal reflux disease without esophagitis (4) Constipation by delayed colonic transit: Code(s): K59.01 - Slow transit constipation (5) Rheumatoid arthritis: Code(s): M06.9 - Rheumatoid arthritis, unspecified Qualifiers: Rheumatoid arthritis location: multiple sites Rheumatoid factor presence: unspecified presence Qualified Code(s): M06.9 - Rheumatoid arthritis, unspecified (6) Urine incontinence: Code(s): R32 - Unspecified urinary incontinence Qualifiers: Urinary Incontinence type: mixed stress and urge incontinence Qualified Code(s): N39.46 - Mixed incontinence (7) Major depression, recurrent: Code(s): F33.9 - Major depressive disorder, recurrent, unspecified Qualifiers: Active/Remission status: currently active Major depression episode severity: moderate Qualified Code(s): F33.1 - Major depressive disorder, recurrent, moderate (8) Interstitial lung disease: Code(s): J84.9 - Interstitial pulmonary disease, unspecified (9) Fibromyalgia: Code(s): M79.7 - Fibromyalgia (10) Memory impairment of gradual onset: Code(s): R41.3 - Other amnesia (11) Bowel incontinence: Code(s): R15.9 - Full incontinence of feces Qualifiers: Fecal incontinence type: fecal urgency Qualified Code(s): R15.9 - Full incontinence of feces; R15.2 - Fecal urgency (12) S/P lumbar fusion: Code(s): Z98.1 - Arthrodesis status Plan Patient is 68 year female came today for a follow-up appointment Patient had bone density done recently and found to have osteoporosis We talked about starting Fosamax, explained to patient how to take the medication And script sent She suffers from fibromyalgia and multiple joint arthritis She has [facility] coming [facility] She suffers from depression, and is seeing a psych med prescriber She is taking doxepin and lorazepam I have told her to have psych roll picker the script for Cymbalta She is taking gabapentin for her body pain as needed Allergies are stable with cetirizine, and montelukast Constipation stable with Colace GERD is stable with pantoprazole She is taking simvastatin 20 mg for lipid control She is on lisinopril 5 mg for blood pressure management, I see that her blood pressure is elevated I would recommend to start monitoring it at home and if it stays above 140 systolic to double the dose and notify me Patient is also on memantine through neurology Patient sees Dr. Roach for her respiratory medications Following medications from PCP office Cetirizine, montelukast, gabapentin, simvastatin Pantoprazole, Zofran, lisinopril, and now Fosamax Patient has chronic history of urine incontinence and wears diapers Recently she had lumbar spine fusion her back pain is better But continued to have paresthesia right lower extremity Follow-up 3 months 45 minutes spent in care of this patient Medications: New alendronate (Fosamax) Take on empty stomach and stay upright for 30 minutes 70 mg PO QWEEK 90 days 13 tabs 0RF Osteoporosis Coding Level of Care Code Est Pt Level 5 (83875) Complex EM visit Add On G2211 Diagnoses Hypertension, essential I10 Environmental allergies Z91.09 Chronic GERD K21.9 Constipation by delayed colonic transit K59.01 Rheumatoid arthritis involving multiple sites, unspecified whether rheumatoid factor present M06.9 Rheumatoid arthritis location: multiple sites Rheumatoid factor presence: unspecified presence Mixed stress and urge urinary incontinence N39.46 Urinary Incontinence type: mixed stress and urge incontinence Moderate episode of recurrent major depressive disorder F33.1 Active/Remission status: currently active Major depression episode severity: moderate Interstitial lung disease J84.9 Fibromyalgia M79.7 Memory impairment of gradual onset R41.3 Incontinence of feces with fecal urgency R15.9; R15.2 Fecal incontinence type: fecal urgency S/P lumbar fusion Z98.1
== END 2024-07-05 10:09 | disposition home or self-care (01) ==
PROVIDERS: PCP Internal Medicine; Visit Provider Internal Medicine
DX: I10 Essential (primary) hypertension (principal); M06.9 Rheumatoid arthritis, unspecified; F33.1 Major depressive disorder, recurrent, moderate; J84.9 Interstitial pulmonary disease, unspecified; Z91.09 Other allergy status, other than to drugs and biological substances; K21.9 Gastro-esophageal reflux disease without esophagitis; K59.01 Slow transit constipation; N39.46 Mixed incontinence; M79.7 Fibromyalgia; R41.3 Other amnesia; R15.9 Full incontinence of feces; R15.2 Fecal urgency

== ENCOUNTER → 2024-07-05 09:25 | Outpatient (BNVA) | payer OTHER, SELFPAY | PROVIDERS: PCP Internal Medicine; Visit Provider Internal Medicine | DX: I10 Essential (primary) hypertension (principal); K21.9 Gastro-esophageal reflux disease without esophagitis; M06.9 Rheumatoid arthritis, unspecified; N39.46 Mixed incontinence; D33.1 Benign neoplasm of brain, infratentorial; J84.9 Interstitial pulmonary disease, unspecified; M79.7 Fibromyalgia; R41.3 Other amnesia; R15.9 Full incontinence of feces; R15.2 Fecal urgency; Z98.1 Arthrodesis status; Z79.899 Other long term (current) drug therapy | CPT/HCPCS: 99212 ==

== ENCOUNTER → 2024-07-06 15:30 | Outpatient (REF) | payer OTHER, SELFPAY | LOC: HO.SL 15:30 | PROVIDERS: PCP Internal Medicine; Visit Provider Internal Medicine | DX: G47.33 Obstructive sleep apnea (adult) (pediatric) (principal); F03.90 Unspecified dementia, unspecified severity, without behavioral disturbance, psychotic disturbance, mood disturbance, and anxiety | CPT/HCPCS: 95806 ==

== ENCOUNTER → 2024-07-07 16:00 | Outpatient (BNV) | payer OTHER, SELFPAY | PROVIDERS: PCP Internal Medicine; Visit Provider Internal Medicine | DX: G47.10 Hypersomnia, unspecified (principal) | CPT/HCPCS: 95806 ==

== ENCOUNTER 2024-07-17 11:00 | Outpatient (AMB) | payer OTHER, SELFPAY ==
[2024-07-17 11:17] VITALS: PULSE 98; O2SAT 96; BMI 37.0
--- NOTE | 2024-07-17 11:17 | A.OFFVIS_ITS ---
Vital Signs 07/17/24 11:17 Height 4 ft 11 in Weight 182 lb 15.739 oz BMI 37.0 Pulse 98 Pulse Source Pulse Oximeter Pulse Oximetry (%) 96 Oxygen Delivery Method Room Air Intake Visit Reasons: Obstructive sleep apnea Intake Note: pt is here for follow up and state she is tired all the time, and she needs a refill for SOLUTION that she uses in the nebulizer . Cutter In Required: No Allergies acetaminophen [From Tylenol] Allergy (Severe, Verified 07/17/24 12:02) Shortness of Breath ibuprofen Allergy (Severe, Verified 07/17/24 12:02) shortness of breath canned food Allergy (Intermediate, Uncoded 07/17/24 12:02) Shortness of Breath Medication List - Last Reconciled 07/17/24 by Antonia Roach MD [adult diapers medium Use for incontinence episodes at night.] albuterol sulfate 2.5 mg (3 mL) inhalation Q4-6H PRN 30 days alendronate (Fosamax) 70 mg PO QWEEK 90 days [bed table As directed] [Blood pressure monitor As directed] capsaicin 0.025% 1 appl topical BID 30 days cetirizine 10 mg PO DAILY PRN disposable gloves Size medium [disposable pads-up to 3/day As directed] docusate sodium (Colace) 100 mg PO BID doxepin 10 mg PO BEDTIME duloxetine 20 mg PO DAILY 90 days gabapentin 100 mg PO TID lisinopril 5 mg PO DAILY 90 days lorazepam 1 mg PO DAILY PRN lorazepam 0.5 mg PO BEDTIME PRN 30 days memantine 10 mg PO DAILY montelukast 10 mg PO DAILY nebulizer and compressor (Comp-Air Nebulizer Compressor) As directed ondansetron HCl 4 mg PO Q8H PRN 30 days pantoprazole 40 mg PO DAILY@0630 [showering chairs As directed] simvastatin 20 mg PO BEDTIME walker As directed Do you need a note to return to daycare/school/sports/work: No HPI HPI Obstructive sleep apnea: Details: This 68 years old female , grossly obese, and has history of chronic nasal/upper airway allergies, question of sleep apnea, poor sleep, and also mild bronchial asthma. She is coming for follow-up after a rather long time. After missing a few appointments she did have the home-based sleep study on 07/07/2024, and was anxious to review the results. She thinks that she has sleep apnea because she has frequent bouts of waking up with gasping like feeling. She also has bouts of cough and some congested, feeling in the chest and uses albuterol solution in the nebulizer with relief. But she does not have to use this every day. 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 She has develop some degree of dementia and also has anxiety syndrome. Today she is complaining mainly about being tired most of the time, She has had recent back surgery and is recovering from that. She is not able to walk long distance and can not lose weight. [facility] Medical History Cognitive disorder Hand numbness GERD (gastroesophageal reflux disease) Cold intolerance Rheumatoid arthritis Lumbar spinal stenosis RAÚL (obstructive sleep apnea) Trigger finger Sleep disorder breathing Latent tuberculosis Cough Asthma Chronic pain syndrome Myofascial muscle pain Osteoarthritis Fibromyalgia HTN (hypertension) Anxiety Surgical History Hx of ovarian cystectomy Hx of cervical discectomy History of lumbar surgery Family History Father Diabetes Mother Acute arthritis Other Mental health disorder Social History Household Members: None Housing: Apartment Are you a primary spiritual care coordinator to a significant other at home: No Do you presently have visiting nurse or other home services: Yes ([employer].) Alcohol intake: never Comment: COUNTS CORRECT Patient Tobacco Use Status: Never used Tobacco e-Cigarette/Vaping Use: Never Used Advance Directives Date on File: 02/26/22 service: No Current occupational status: unemployed Cognitive needs: No Hearing needs: No Vision needs: No Review of Systems Const All systems reviewed & are unremarkable except as noted in HPI and below Eyes Reports no additional complaints ENT Reports nasal congestion (Off and on) Card Denies chest pain, Denies irregular heart rhythm and Denies leg edema Resp Reports as per HPI GI Reports heartburn (Being treated for GERD) Reports no additional complaints Musc Reports back pain and Reports myalgias Skin/Breast Reports system reviewed and no additional complaints, except as documented Neuro Reports memory loss (Mild) Psych Reports no additional complaints and Reports memory loss (Mild) Endo Reports no additional complaints Julien/Lymph Reports no additional complaints Physical Exam Vital Signs: Last Vital Signs Pulse 98 07/17/24 11:17 Pulse Ox 96 07/17/24 11:17 Oxygen Delivery Method Room Air 07/17/24 11:17 BMI result Body Mass Index 37.0 Const Other: Patient comes in wearing winter jacket, and she is somewhat unkempt. General: comfortable, no acute distress, alert and awake Orientation/consciousness: patient oriented x3 HEENT Head: Yes normal to inspection General nose exam: No nasal polyps present and No nasal discharge present Face and sinus: Yes sinuses nontender Mouth: oropharynx normal Teeth and gingiva: edentulous Throat: No posterior oropharynx normal (Tongue is placed back and oropharynx is narrow, Mallampati class 4.) Eyes General: appearance normal, both eyes and all related structures Neck Neck: Yes normal visual inspection, Yes no lymphadenopathy, Yes trachea midline and Yes no JVD Thyroid: Thyroid normal Chest Chest palpation & inspection: normal inspection of the chest, normal palpation of entire chest wall and no tenderness Resp Other: Percussion note resonant, breath sounds are distant on both sides, I did not hear wheezes or rhonchi. Cardio Palpation: normal PMI Rate: regular rate Rhythm: regular rhythm Heart sounds: no gallops and no murmurs GI Palpation (GI): Soft to palpation, nontender, No hepatosplenomegaly present and no masses Auscultation: normal bowel sounds Back/Spine/Pelvis Thoracic/Lumbar Spine: thoracic and lumbar spine normal to inspection and thoraco-lumbar ROM limited Skin General skin exam: no rashes or lesions noted Neuro General: patient oriented x3 and no focal motor deficits Cranial nerves: Yes CN's II-XII intact bilaterally Extrem General: Yes normal to inspection, Yes no clubbing, cyanosis or edema and Yes no calf tenderness Psych Appearance: poorly kempt (Somewhat unkempt, comes in wearing a heavy winter jacket .) and other (Seems to be anxious.) Speech and movement: Normal speech and movement present Affect: Anxious affect present Results Reviewed Results Reviewed: Sleep study on 07/07/2024 shows the following. She claims that she slept well on that night. Total sleep time AHI only 1.9 and mostly in supine position. There was no significant snoring. And there was no hypoxemia Assessment & Plan Assessment & Plan (1) Asthma: Comment: THIS PATIENT HAS COMPLAINT OF FREQUENT BOUTS OF CHEST CONGESTION WITH COUGH AND SOME WHEEZING. SHE PROBABLY DOES HAVE MILD BRONCHIAL ASTHMA. SEEMS TO BE DOING OKAY WITH USE OF ALBUTEROL IN THE NEBULIZER P.R.N. She is also taking montelukast 10 mg daily, and may continue. Code(s): J45.909 - Unspecified asthma, uncomplicated Category: Medical Plan: I ADVISED HER TO USE ALBUTEROL Q 6 HOURS P.R.N. IF SHE HAS ANY BOUTS OF COUGH OR WHEEZING. PRESCRIPTION FOR ALBUTEROL SOLUTION TO BE USED IN THE NEBULIZER IS SENT. (2) Cough: Comment: Cough especially at night may be part of her bronchial asthma. Seems to be controlled with the use of albuterol in the nebulizer. Code(s): R05.9 - Cough, unspecified Category: Medical Plan: See treatment plan under ASTHMA (3) Sleep disorder breathing: Comment: This patient gives history of waking up frequently during the night with gasping like feeling. She has been thinking that she has sleep apnea. She did have home-based sleep study and claims that she slept. Well on that night This study is negative for sleep apnea with total sleep time AHI only 1.9 and most of the obstructive events were in supine position, Code(s): G47.30 - Sleep apnea, unspecified Category: Medical Plan: I showed her the results of sleep study and explained to her in detail. Advised that she needs to lose some weight if she can by restricting the calories intake , and by walking daily. Sleep hygiene is explained. Advised to sleep all the times in lateral position. (4) Anxiety, generalized: Comment: She does have anxiety syndrome, this may contribute to her poor sleep., I think she is relatively better on the current medical regimen Code(s): F41.1 - Generalized anxiety disorder Category: Medical Plan: Discussed with her in detail and reassured that she does not have sleep apnea. Advised to continue present medications. Coding Level of Care Code Est Pt Level 3 (04211) Diagnoses Asthma J45.909 Cough R05.9 Sleep disorder breathing G47.30 Anxiety, generalized F41.1
== END 2024-07-17 11:42 | disposition home or self-care (01) ==
PROVIDERS: PCP Internal Medicine; Visit Provider Internal Medicine
DX: J45.909 Unspecified asthma, uncomplicated (principal); R05.9 Cough, unspecified; G47.30 Sleep apnea, unspecified; F41.1 Generalized anxiety disorder
CPT/HCPCS: 99213

== ENCOUNTER → 2024-07-17 11:00 | Outpatient (BNVA) | payer OTHER, SELFPAY | PROVIDERS: PCP Internal Medicine; Visit Provider Internal Medicine | DX: G47.30 Sleep apnea, unspecified (principal); J45.909 Unspecified asthma, uncomplicated; R05.9 Cough, unspecified; F41.1 Generalized anxiety disorder | CPT/HCPCS: 99212 ==

== ENCOUNTER 2024-07-18 09:04 | Outpatient (REF) | payer OTHER, SELFPAY ==
--- NOTE | ~2024-07-18 | XR_ITS ---
EXAMINATION: XR LUMBAR SPINE 4 VIEWS CLINICAL INFORMATION: Arthrodesis status Z98.1. COMPARISON: XR Lumbar spine 05/18/2024 TECHNIQUE: AP, lateral, flexion and extension views of lumbar spine. FINDINGS: Decreased bone mineral density limits sensitivity for subtle fracture. There has been no gross significant radiographic change compared with most recent prior study dated May 18, 2024. Examination demonstrates the patient to be status post placement of bilateral transpedicular screws and rods at L3-S1, with screws skipping L5. There is a disc spacing device at L3-L4. No evidence of hardware fracture or loosening. Mild compression deformity of L1, not grossly changed. Superior endplate softening of L2, unchanged. Suspect spondylolysis at L5-S1. Severe disc degenerative change with grade 2 anterolisthesis of L5 on S1, stable in flexion, neutral, and extension. Paraspinal soft tissues appear unremarkable. Mild aortoiliac calcification. XR/XR lumbar spine 4V min IMPRESSION: Findings as above. Electronically signed by: Fabiano Perez MD 09/29/2024 11:30 AM [facility]
== END 2024-07-18 09:05 | disposition home or self-care (01) ==
LOC: HO.HOSX 09:04
PROVIDERS: Visit Provider Physician Assistant
DX: Z47.89 Encounter for other orthopedic aftercare (principal); Z98.1 Arthrodesis status
CPT/HCPCS: 72110; 99212

== ENCOUNTER 2024-07-18 14:23 | Outpatient (AMB) | payer OTHER, SELFPAY ==
--- NOTE | 2024-07-18 14:35 | A.SPINEOV_ITS ---
Intake Visit Reasons: 2nd post op with Xrays Intake Note: Ms. Uriel Cool is here today for her 2nd post-op visit with xrays. Exchange Consultant Required: No Allergies acetaminophen [From Tylenol] Allergy (Severe, Verified 07/17/24 12:02) Shortness of Breath ibuprofen Allergy (Severe, Verified 07/17/24 12:02) shortness of breath canned food Allergy (Intermediate, Uncoded 07/17/24 12:02) Shortness of Breath Assessment & Plan Assessment & Plan (1) S/P lumbar fusion: Code(s): Z98.1 - Arthrodesis status Category: Surgical Plan Cherry comes in today for a subsequent follow up to obtain a set of X-rays and discuss her postoperative healing course. She reports that her back pain has completely resolved since the surgery. She is concerned because she still has some pain in her right knee which we discussed during this visit today. She feels as though it is a nerve pain in his not directly related to the joint. I was very difficult to follow exactly what she was stating during this encounter as her thought process seemed much more erratic than previous encounters I have had with her. She also arrived in clinic today in full winter gear, (large winter jacket, winter hat, winter boots, facemask, etc.) and states she needs to wear it now to help her fibromyalgia. For reference; it is 72 degrees and luis outside today. Overall her evaluation was very difficult today and I did the best I could to answer all of her questions. I showed her the X-ray imaging that was completed today and explained her surgery. She additionally requested at home nursing which we can not provide for her this far out from surgery as insurance will not cover it if we attempt to order it. No new neurological deficits aside from the right-sided nerve pain that was reported. The patient continues to ambulate with the assistance of a walker but is able to rise from seated position without difficulty and without needing assistance of a walker or the chair. Cherry was provided with a referral to physical therapy as I believe this could be helpful for her to work out the last of the right-sided leg pain which may or may not be related to her surgery. The primary indication for surgery was to relieve her back pain, which has been accomplished. We did discuss the possibility of her hyper fixating on her knee pain as it may have been present before her back pain was previously relieved. She may just not have been able to identify and/or focus on it as the back pain was so overwhelming. Hopefully physical therapy will be beneficial. I did refill her gabapentin prescription as she requested it several times. She finds it is helpful. We will not be able to continue refilling it after this. Mark Pulido MD,PhD [facility] Orders: Orders XR lumbar spine 4V min Today Z98.1 - Arthrodesis status PT Evaluation and Treatment Today Z98.1 - Arthrodesis status Medications: Refilled gabapentin 100 mg PO TID 30 caps 0RF nerve pain Coding Level of Care Code Global (67297) Diagnoses S/P lumbar fusion Z98.1
== END 2024-07-18 15:34 | disposition home or self-care (01) ==
PROVIDERS: PCP Internal Medicine; Visit Provider Physician Assistant
DX: Z98.1 Arthrodesis status (principal)
CPT/HCPCS: 99024

== ENCOUNTER 2024-07-20 08:19 | Outpatient (AMB) | payer OTHER, SELFPAY ==
--- NOTE | 2024-07-20 08:38 | MHC.PC.OV ---
Intake Visit Reasons: Osteopetrosis Med Review Allergies acetaminophen [From Tylenol] Allergy (Severe, Verified 07/20/24 08:38) Shortness of Breath ibuprofen Allergy (Severe, Verified 07/20/24 08:38) shortness of breath canned food Allergy (Intermediate, Uncoded 07/17/24 12:02) Shortness of Breath Medication List - Last Reconciled 07/20/24 by Federico Yates MD [adult diapers medium Use for incontinence episodes at night.] albuterol sulfate 2.5 mg (3 mL) inhalation Q4-6H PRN 30 days alendronate (Fosamax) 70 mg PO QWEEK 90 days [bed table As directed] [Blood pressure monitor As directed] capsaicin 0.025% 1 appl topical BID 30 days cetirizine 10 mg PO DAILY PRN disposable gloves Size medium [disposable pads-up to 3/day As directed] docusate sodium (Colace) 100 mg PO BID doxepin 10 mg PO BEDTIME duloxetine 20 mg PO DAILY 90 days gabapentin 100 mg PO TID lisinopril 5 mg PO DAILY 90 days lorazepam 1 mg PO DAILY PRN lorazepam 0.5 mg PO BEDTIME PRN 30 days memantine 10 mg PO DAILY montelukast 10 mg PO DAILY nebulizer and compressor (Comp-Air Nebulizer Compressor) As directed ondansetron HCl 4 mg PO Q8H PRN 30 days pantoprazole 40 mg PO DAILY@0630 [showering chairs As directed] simvastatin 20 mg PO BEDTIME walker As directed Tobacco use date assessed: 07/20/24 Fall risk assessment: No Falls in past year Last assessed Fall Risk: 07/20/24 Dental Screening Dental Screen Date: 07/20/24 Did you have a dental visit in the last 12 months?: Yes Did you have a dental problem in the last 6 months where you did not have access to dental care?: No Was dental information given to patient?: Patient has dentist HPI Osteopetrosis Med Review HPI Details Patient was started on foasmax and did well but then her heartburn started which patient already have she is asking for Maalox Rx which i have sent for her I have offered her apt with Endo for the managment, so she talk about Prolia injections she has declined that for now also asking for cough med, as she has picked up viral illness from her family and is coughing now at night there is no fever no SOB no chest pain PFSH Medical History Cognitive disorder Hand numbness GERD (gastroesophageal reflux disease) Cold intolerance Rheumatoid arthritis Lumbar spinal stenosis RAÚL (obstructive sleep apnea) Trigger finger Sleep disorder breathing Latent tuberculosis Cough Asthma Chronic pain syndrome Myofascial muscle pain Osteoarthritis Fibromyalgia HTN (hypertension) Anxiety Surgical History Hx of ovarian cystectomy Hx of cervical discectomy History of lumbar surgery Family History Father Diabetes Mother Acute arthritis Other Mental health disorder Social History Household Members: None Housing: Apartment Are you a primary patient care secretary to a significant other at home: No 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 How often do you have a drink containing alcohol?: Never 3. How often do you have six or more drinks on one occasion?: Never Total Score: 0 Score Reviewed/Action Taken: Yes MATTHEW-7 AMB Questionnaire MATTHEW-7 Date MATTHEW - 7 assessed: 12/02/23 Source: Developed by Drs. Bj Ingram, Yolanda Glass, Dexter Ferguson and colleagues, with an educational jesus from [employer]. Review of Systems Const Denies chills and Denies fever(s) ENT Denies epistaxis and Denies nasal discharge Card Denies chest pain Resp Denies chest congestion and Denies hemoptysis GI Denies diarrhea and Denies nausea Skin/Breast Denies rash Neuro Reports no additional complaints Psych Reports no additional complaints Endo Reports no additional complaints Physical exam (Primary Care) Tobacco/Smoking Status: Tobacco use Status Tobacco use date assessed 07/20/24 07/20/24 08:41 Patient Tobacco Use Status Never used Tobacco 07/20/24 08:41 e-Cigarette/Vaping Use Never Used 07/20/24 08:41 Thrive Assessment: Date of Thrive Assessment Date Thrive assessed 05/17/24 07/20/24 08:41 Telehealth Telehealth Telehealth Platform: [employer] Location of provider rendering services: practice address Location of patient: address on file Patient Identification confirmed using: Name, : Yes Telehealth method: voice only Patient verbally consented to treatment: Yes Patient verbally consented to billing insurance company: Yes Patient informed of any privacy concerns related to visit: Yes Minutes spent on Phone/Video with Pt.: 15 Coding Level of Care Code Tele Est Pt Level 3 (63888) Diagnoses Age-related osteoporosis without current pathological fracture M81.0 Presence of current pathological fracture: without current pathological fracture Acute cough R05.1 Cough type: acute Assessment & Plan Assessment & Plan (1) Age related osteoporosis: Code(s): M81.0 - Age-related osteoporosis without current pathological fracture Category: Medical Qualifiers: Presence of current pathological fracture: without current pathological fracture Qualified Code(s): M81.0 - Age-related osteoporosis without current pathological fracture (2) Cough: Code(s): R05.9 - Cough, unspecified Category: Medical Qualifiers: Cough type: acute Qualified Code(s): R05.1 - Acute cough Plan Patient was started on foasmax and did well but then her heartburn started which patient already have she is asking for Maalox Rx which i have sent for her I have offered her apt with Endo for the managment, so she talk about Prolia injections she has declined that for now also asking for cough med, as she has picked up viral illness from her family and is coughing now at night there is no fever no SOB no chest pain Medications: New alum-mag hydroxide-simeth 200-200-20 mg/5 mL (Maalox Advanced) administer between meals and at bedtime 10 mL PO ONCE PRN 300 mL 0RF indigestion 30 days Refilled benzonatate 200 mg PO BID PRN 20 caps 0RF cough 10 days
== END 2024-07-20 09:23 | disposition home or self-care (01) ==
LOC: HO.HMCC 08:19
PROVIDERS: PCP Internal Medicine; Visit Provider Internal Medicine
DX: M81.0 Age-related osteoporosis without current pathological fracture (principal); R05.1 Acute cough

== ENCOUNTER → 2024-07-20 08:19 | Outpatient (BNVA) | payer OTHER, SELFPAY | PROVIDERS: PCP Internal Medicine; Visit Provider Internal Medicine ==

== ENCOUNTER 2024-07-27 08:22 | Outpatient (AMB) | payer OTHER, SELFPAY ==
--- NOTE | 2024-07-27 08:33 | MHC.PC.OV ---
Intake Visit Reasons: Requesting Med~ [phone] Allergies acetaminophen [From Tylenol] Allergy (Severe, Verified 07/27/24 08:34) Shortness of Breath ibuprofen Allergy (Severe, Verified 07/27/24 08:34) shortness of breath canned food Allergy (Intermediate, Uncoded 07/17/24 12:02) Shortness of Breath Medication List - Last Reconciled 07/27/24 by Federico Yates MD [adult diapers medium Use for incontinence episodes at night.] albuterol sulfate 2.5 mg (3 mL) inhalation Q4-6H PRN 30 days alendronate (Fosamax) 70 mg PO QWEEK 90 days alum-mag hydroxide-simeth 200-200-20 mg/5 mL (Maalox Advanced) 10 mL PO ONCE PRN 30 days [bed table As directed] [Blood pressure monitor As directed] capsaicin 0.025% 1 appl topical BID 30 days cetirizine 10 mg PO DAILY PRN disposable gloves Size medium [disposable pads-up to 3/day As directed] docusate sodium (Colace) 100 mg PO BID doxepin 10 mg PO BEDTIME duloxetine 20 mg PO DAILY 90 days gabapentin 100 mg PO TID lisinopril 5 mg PO DAILY 90 days lorazepam 1 mg PO DAILY PRN lorazepam 0.5 mg PO BEDTIME PRN 30 days memantine 10 mg PO DAILY montelukast 10 mg PO DAILY nebulizer and compressor (Comp-Air Nebulizer Compressor) As directed ondansetron HCl 4 mg PO Q8H PRN 30 days pantoprazole 40 mg PO DAILY@0630 [showering chairs As directed] simvastatin 20 mg PO BEDTIME walker As directed Tobacco use date assessed: 07/27/24 Fall risk assessment: No Falls in past year Last assessed Fall Risk: 07/27/24 Dental Screening Dental Screen Date: 07/27/24 Did you have a dental visit in the last 12 months?: Yes Did you have a dental problem in the last 6 months where you did not have access to dental care?: No Was dental information given to patient?: Patient has dentist HPI Requesting Med~ [phone] HPI Details Patient has rhumatoid arthritis and insominia along with depression she is currently taking number of medications that can cause sedation and dizziness patient already have weakness and dizziness she is asking for flexeril 10 mg , she was taking it three times a day explained to patient that its not recommended in her case to take Doxipen Lorazepam Gabapentine and flexeril she is already a risk for fall she states she will stop taking Lorazepam that she is getting from Psych and she is willing to take the risk but she need the medication as she keep getting muscle spasms PFSH Medical History Cognitive disorder Hand numbness GERD (gastroesophageal reflux disease) Cold intolerance Rheumatoid arthritis Lumbar spinal stenosis RAÚL (obstructive sleep apnea) Trigger finger Sleep disorder breathing Latent tuberculosis Cough Asthma Chronic pain syndrome Myofascial muscle pain Osteoarthritis Fibromyalgia HTN (hypertension) Anxiety Surgical History Hx of ovarian cystectomy Hx of cervical discectomy History of lumbar surgery Family History Father Diabetes Mother Acute arthritis Other Mental health disorder Social History Household Members: None Housing: Apartment Are you a primary palliative care coordinator to a significant other at home: No 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 Bj Ingram, Yolanda Glass, Dexter Ferguson and colleagues, with an educational jesus from [employer]. Review of Systems Const Denies chills and Denies fever(s) ENT Denies epistaxis and Denies nasal discharge Card Denies chest pain Resp Denies hemoptysis GI Denies diarrhea and Denies nausea Skin/Breast Denies rash Neuro Reports no additional complaints Psych Reports no additional complaints Endo Reports no additional complaints Physical exam (Primary Care) Tobacco/Smoking Status: Tobacco use Status Tobacco use date assessed 07/27/24 07/27/24 08:34 Patient Tobacco Use Status Never used Tobacco 07/27/24 08:34 e-Cigarette/Vaping Use Never Used 07/27/24 08:34 Thrive Assessment: Date of Thrive Assessment Date Thrive assessed 05/17/24 07/27/24 08:34 Telehealth Telehealth Telehealth Platform: [employer] Location of provider rendering services: practice address Location of patient: address on file Patient Identification confirmed using: Name, : Yes Telehealth method: voice only Patient verbally consented to treatment: Yes Patient verbally consented to billing insurance company: Yes Patient informed of any privacy concerns related to visit: Yes Coding Level of Care Code Tele Est Pt Level 3 (00402) Diagnoses Muscle spasm M62.838 At risk for polypharmacy Z91.89 Assessment & Plan Assessment & Plan (1) Muscle spasm: Code(s): M62.838 - Other muscle spasm Category: Medical (2) At risk for polypharmacy: Code(s): Z91.89 - Other specified personal risk factors, not elsewhere classified Category: Medical Plan Patient has rhumatoid arthritis and insominia along with depression she is currently taking number of medications that can cause sedation and dizziness patient already have weakness and dizziness she is asking for flexeril 10 mg , she was taking it three times a day explained to patient that its not recommended in her case to take Doxipen Lorazepam Gabapentine and flexeril she is already a risk for fall she states she will stop taking Lorazepam that she is getting from Psych and she is willing to take the risk but she need the medication as she keep getting muscle spasms 18 min visit Medications: New cyclobenzaprine 10 mg PO TID PRN 90 tabs 2RF muscle spasm
== END 2024-07-27 09:00 | disposition home or self-care (01) ==
LOC: HO.HMCC 08:22
PROVIDERS: PCP Internal Medicine; Visit Provider Internal Medicine
DX: M62.838 Other muscle spasm (principal); Z91.89 Other specified personal risk factors, not elsewhere classified

== ENCOUNTER → 2024-07-27 08:22 | Outpatient (BNVA) | payer OTHER, SELFPAY | PROVIDERS: PCP Internal Medicine; Visit Provider Internal Medicine ==

== ENCOUNTER → 2024-09-06 13:59 | Outpatient (BNVA) | payer OTHER, SELFPAY | PROVIDERS: PCP Internal Medicine; Visit Provider Internal Medicine ==

== ENCOUNTER 2024-10-04 11:18 | Outpatient (AMB) | payer OTHER, SELFPAY ==
[2024-10-04 11:47] VITALS: BMI 36.8
--- NOTE | 2024-10-04 11:47 | A.OFFVIS_ITS ---
Vital Signs 10/04/24 11:47 Height 4 ft 11 in Weight 182 lb BMI 36.8 Intake Visit Reasons: newprob-RT hand, MF -discuss possible surgery Intake Note: Cherry 89 yr old right hand dominant female presents today for a new problem visit for her Right middle finger locking. States her finger is very painful and feels she is ready for surgery. Hx of left middle finger trigger release 02/28/24 Allergies acetaminophen [From Tylenol] Allergy (Severe, Verified 07/27/24 08:34) Shortness of Breath ibuprofen Allergy (Severe, Verified 07/27/24 08:34) shortness of breath canned food Allergy (Intermediate, Uncoded 07/17/24 12:02) Shortness of Breath HPI HPI newprob-RT hand, MF -discuss possible surgery: Details: Cherry is a 69 year old right hand dominant woman who returns to discuss her right middle finger trigger finger. She is S/P left ring finger trigger release, DOS: 02/28/24. She says her right middle finger is locking painfully and she would like to discuss surgery. Good resolution of her left ring finger symptoms. She is happy with the results of her surgery. She has a hx of Dementia, memory loss, CPS, Fibromyalgia, RA, and a right carpal tunnel release in 2004. COUNTS INCLUDE 234 BEDS AT THE [facility] Medical History Cognitive disorder Hand numbness GERD (gastroesophageal reflux disease) Cold intolerance Rheumatoid arthritis Lumbar spinal stenosis RAÚL (obstructive sleep apnea) Trigger finger Sleep disorder breathing Latent tuberculosis Cough Asthma Chronic pain syndrome Myofascial muscle pain Osteoarthritis Fibromyalgia HTN (hypertension) Anxiety Surgical History Hx of ovarian cystectomy Hx of cervical discectomy History of lumbar surgery Family History Father Diabetes Mother Acute arthritis Other Mental health disorder Social History Household Members: None Housing: Apartment Are you a primary career services representative to a significant other at home: No Do you presently 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.) Alcohol intake: never Comment: COUNTS CORRECT Patient Tobacco Use Status: Never used Tobacco e-Cigarette/Vaping Use: Never Used Advance Directives Date on File: 02/26/22 service: No Current occupational status: unemployed Cognitive needs: No Hearing needs: No Vision needs: No Physical Exam Vital Signs: BMI result Body Mass Index 36.8 Extrem Other: Evaluation of right Upper Extremity: The patient is alert, oriented, and in no acute distress Vascular: Cap refill brisk ROM: She can make a fist and extend all her digits Visible and palpable locking & catching of the middle finger Tender over the middle finger a1 good ~20 degree flexion contracture of the middle finger PIP joint Assessment & Plan Assessment & Plan (1) Trigger finger, right middle finger: Code(s): M65.331 - Trigger finger, right middle finger Category: Medical (2) Dementia: Comment: Advanced. MMSE 06/16 Code(s): F03.90 - Unspecified dementia, unspecified severity, without behavioral disturbance, psychotic disturbance, mood disturbance, and anxiety Category: Medical Qualifiers: Dementia behavioral or psychological symptom: without behavioral, psychotic, or mood disturbance or anxiety Dementia severity: mild Dementia type: unspecified type Qualified Code(s): F03.A0 - Unspecified dementia, mild, without behavioral disturbance, psychotic disturbance, mood disturbance, and anxiety (3) Fibromyalgia: Code(s): M79.7 - Fibromyalgia Category: Medical Plan Assessment & Plan: 1. Right middle finger trigger finger I educated her about this condition I discussed operative and non-operative treatment options The patient would like to proceed with surgery The risks and benefits of operative treatment were discussed with the patient and the patient wishes to proceed with surgery. These risks include, but are not limited to risk of damage to blood vessels, nerves, tendons, infection, recurrence, incomplete relief of preoperative symptoms, persistent pain, possible need for further surgery and the risks associated with regional blocks and anesthesia. The plan is to take the patient to the operating room sometime in the next few weeks for the following procedures: 1. Right middle finger trigger release, under local All of the preoperative paperwork including the consent was reviewed today. All the patient's questions were answered. The patient understands that they will be contacted by our car oiler soon to schedule this procedure. She would like to be palced on the cancellation list for a sooner DOS if possible She denies Diabetes, blood thinners, heart, lung, kidney issues She has asthma, and a Hx of CPS, Fibromyalgia, Dementia, and memory loss She is listed as having an adverse reaction to both Ibuprofen & Tylenol, causing SOB 2. Left ring finger trigger finger, S/P release DOS: 02/23/24 3. History of right carpal tunnel release DOS: ~2004, at an outside clinic Scribed for Marianna Parr MD by Lj Cain, medical delivery technician, on 10/04/24 at 12:00 PM, EST. Coding Level of Care Code Est Pt Level 4 (81308) Diagnoses Trigger finger, right middle finger M65.331 Mild dementia without behavioral disturbance, psychotic disturbance, mood disturbance, or anxiety, unspecified dementia type F03.A0 Dementia behavioral or psychological symptom: without behavioral, psychotic, or mood disturbance or anxiety Dementia severity: mild Dementia type: unspecified type Fibromyalgia M79.7
== END 2024-10-04 12:10 | disposition home or self-care (01) ==
PROVIDERS: PCP Internal Medicine; Visit Provider Orthopaedic Surgery
DX: M65.331 Trigger finger, right middle finger (principal); F03.A0 Unspecified dementia, mild, without behavioral disturbance, psychotic disturbance, mood disturbance, and anxiety; M79.7 Fibromyalgia
CPT/HCPCS: 99214

== ENCOUNTER → 2024-10-04 11:18 | Outpatient (BNVA) | payer OTHER, SELFPAY | PROVIDERS: PCP Internal Medicine; Visit Provider Orthopaedic Surgery | DX: M65.331 Trigger finger, right middle finger (principal); F03.A0 Unspecified dementia, mild, without behavioral disturbance, psychotic disturbance, mood disturbance, and anxiety; M79.7 Fibromyalgia | CPT/HCPCS: 99212 ==

== ENCOUNTER 2024-10-31 14:57 | Outpatient (AMB) | payer OTHER, SELFPAY ==
[2024-10-31 15:05] VITALS: BP 110/70; PULSE 97; O2SAT 99; BMI 36.8
--- NOTE | 2024-10-31 15:05 | A.OFFVIS_ITS ---
Vital Signs 10/31/24 15:05 Height 4 ft 11 in Weight 182 lb BMI 36.8 BP 110/70 Blood Pressure Location Lt radial Position Sitting Pulse 97 Pulse Source Pulse Oximeter Pulse Oximetry (%) 99 Oxygen Delivery Method Room Air Intake Visit Reasons: persistent cough Intake Note: pt is here for a sick visit for a cough with phlem that is very bothersome for about 3 weeks. She was put on Augmentin but it is not helping with the cough, she feels it is an allergic cough. Allergies acetaminophen [From Tylenol] Allergy (Severe, Verified 10/31/24 15:32) Shortness of Breath ibuprofen Allergy (Severe, Verified 10/31/24 15:32) shortness of breath canned food Allergy (Intermediate, Uncoded 10/31/24 15:32) Shortness of Breath Medication List - Last Reconciled 10/31/24 by Antonia Roach MD [bed bars As directed NS] [adult diapers medium Use for incontinence episodes at night.] [adult pull-ups As directed NS] albuterol sulfate 2.5 mg (3 mL) inhalation Q4-6H PRN 30 days alendronate (Fosamax) 70 mg PO QWEEK 90 days alum-mag hydroxide-simeth 200-200-20 mg/5 mL (Maalox Advanced) 10 mL PO ONCE PRN 30 days [bed table As directed] benzonatate 150 mg PO BID 15 days [Blood pressure monitor As directed] capsaicin 0.025% 1 appl topical BID 30 days cetirizine 10 mg PO DAILY PRN cyclobenzaprine 10 mg PO TID PRN disposable gloves Size medium [disposable pads-up to 3/day As directed] docusate sodium (Colace) 100 mg PO BID doxepin 10 mg PO BEDTIME duloxetine 20 mg PO DAILY 90 days gabapentin 100 mg PO TID lisinopril 5 mg PO DAILY 90 days loratadine (Allergy Relief (loratadine)) 10 mg PO DAILY 10 days lorazepam 0.5 mg PO BEDTIME PRN 30 days lorazepam 1 mg PO DAILY PRN memantine 10 mg PO QAM [mobility scooter As directed NS] montelukast 10 mg PO DAILY nebulizer and compressor (Comp-Air Nebulizer Compressor) As directed [non-slip shower mat As directed NS] ondansetron HCl 4 mg PO Q8H PRN 30 days pantoprazole 40 mg PO DAILY@0630 prednisone 20 mg PO BID 5 days [raised toilet seat As directed NS] [showering chairs As directed] simvastatin 20 mg PO BEDTIME walker As directed walker Use As directed NS Do you need a note to return to daycare/school/sports/work: No HPI HPI persistent cough: Details: THIS 69 YEARS OLD FEMALE, ORIGINALLY FROM [place] , 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 COMES TODAY FOR AN URGENT VISIT, COMPLAINING THAT FOR THE PAST 2-3 WEEK SHE IS HAVING RUNNY NOSE AND SEVERE COUGH. . DENIES HAVING ANY FEVER SHE HAS BEEN SEEN BY HER PRIMARY CARE PHYSICIAN OR AT AN URGENT CARE CLINIC, WAS PRESCRIBED AUGMENTIN WHICH HAS NOT HELPED. SHE IS HAVING ALMOST CONTINUOUS SPASMODIC COUGH. SHE CLAIMS THAT THIS IS AN ALLERGIC CUFF ON SHE NEEDS SOMETHING FOR ALLERGY AND COUGH CONTROL. SHE IS ALSO DEMANDING THAT SHE NEEDS A COURSE OF PREDNISONE. SHE WAS PRESCRIBED AUGMENTIN BUT IT IS NOT HELPING. [facility] Medical History Cognitive disorder Hand numbness GERD (gastroesophageal reflux disease) Cold intolerance Rheumatoid arthritis Lumbar spinal stenosis RAÚL (obstructive sleep apnea) Trigger finger Sleep disorder breathing Latent tuberculosis Cough Asthma Chronic pain syndrome Myofascial muscle pain Osteoarthritis Fibromyalgia HTN (hypertension) Anxiety Surgical History Hx of ovarian cystectomy Hx of cervical discectomy History of lumbar surgery Family History Father Diabetes Mother Acute arthritis Other Mental health disorder Social History Household Members: None Housing: Apartment Are you a primary direct care specialist to a significant other at home: No Do you presently have visiting nurse or other home services: Yes ([employer]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.) Alcohol intake: never Comment: COUNTS CORRECT Patient Tobacco Use Status: Never used Tobacco e-Cigarette/Vaping Use: Never Used Advance Directives Date on File: 02/26/22 service: No Current occupational status: unemployed Cognitive needs: No Hearing needs: No Vision needs: No Review of Systems Const All systems reviewed & are unremarkable except as noted in HPI and below Eyes Reports no additional complaints ENT Reports nasal congestion (Off and on) Card Denies chest pain, Denies irregular heart rhythm and Denies leg edema Resp Reports as per HPI GI Reports no additional complaints Reports no additional complaints Musc Reports back pain and Reports myalgias Skin/Breast Reports system reviewed and no additional complaints, except as documented Neuro Reports memory loss (Mild) Psych Reports anxiety and Reports memory loss (Mild) Endo Reports no additional complaints Julien/Lymph Reports no additional complaints Physical Exam Vital Signs: Last Vital Signs Pulse 97 10/31/24 15:05 BP 110/70 10/31/24 15:05 Pulse Ox 99 10/31/24 15:05 Oxygen Delivery Method Room Air 10/31/24 15:05 BMI result Body Mass Index 36.8 PATIENT IS VERY ANXIOUS. HAS CONSTANT COUGH. CAN NOT EVEN COME COMPLETE THE SENTENCES Const Other: Patient comes in wearing winter jacket, and she is somewhat unkempt. General: comfortable, no acute distress, alert and awake Orientation/consciousness: patient oriented x3 HEENT Head: Yes normal to inspection General nose exam: No nasal polyps present, No nasal discharge present and Other nasal findings present (HAS MODERATE NASAL CONGESTION ON BOTH SIDES) Face and sinus: Yes sinuses nontender Mouth: oropharynx normal (NO DEFINITE REDNESS OR EXUDATES NOTED) Teeth and gingiva: edentulous Eyes General: appearance normal, both eyes and all related structures Neck Neck: Yes normal visual inspection, Yes no lymphadenopathy, Yes trachea midline and Yes no JVD Thyroid: Thyroid normal Chest Chest palpation & inspection: normal inspection of the chest, normal palpation of entire chest wall and no tenderness Resp Other: Percussion note resonant, breath sounds are distant on both sides. PATIENT CONTINUES TO COUGH AND CAN NOT TAKE A DEEP BREATH. HOWEVER I DID NOT HEAR ANY LOCALIZED CREPITATIONS OR WHEEZES. Cardio Palpation: normal PMI Rate: regular rate Rhythm: regular rhythm Heart sounds: no gallops and no murmurs GI Palpation (GI): Soft to palpation, nontender, No hepatosplenomegaly present and no masses Auscultation: normal bowel sounds Back/Spine/Pelvis Thoracic/Lumbar Spine: thoracic and lumbar spine normal to inspection and thoraco-lumbar ROM limited Skin General skin exam: no rashes or lesions noted Neuro General: patient oriented x3 and no focal motor deficits Cranial nerves: Yes CN's II-XII intact bilaterally Extrem General: Yes normal to inspection, Yes no clubbing, cyanosis or edema and Yes no calf tenderness Psych Appearance: poorly kempt (Somewhat unkempt, comes in wearing a heavy winter jacket .) and other (Seems to be anxious.) Speech and movement: Normal speech and movement present Affect: Anxious affect present Assessment & Plan Assessment & Plan (1) Respiratory tract congestion with cough: Comment: THIS PATIENT HAS PERSISTENT, ONGOING COUGH FOR 2-3 WEEKS. STARTED AFTER SHE WAS EXPOSED TO A GRANDCHILD WHO HAD UPPER RESPIRATORY INFECTION. CLINICALLY IT SEEMS TO BE VIRAL UPPER RESPIRATORY INFECTION. ADDITIONALLY SHE HAS COMPONENT OF ACUTE RHINITIS, ALSO SHE HAS SIGNIFICANT DEGREE OF ANXIETY. Code(s): R05.8 - Other specified cough Category: Medical Plan: PATIENT HAS ALREADY COMPLETED COURSE OF AUGMENTIN. PREDNISONE 20 MG B.I.D. FOR 5 DAYS, EMPIRICALLY. BENZONATATE 150 MG CAPSULE B.I.D. FOR 8-10 DAYS. LORATADINE 10 MG ONCE A DAY ( ANTIHISTAMINICS ) I TRY TO EXPLAINED TO HER AND REASSURE HER, AT THIS IS IS SELF-LIMITING ACUTE VIRAL ILLNESS AND SHOULD GO AWAY IN A WEEK OR SO. SHE CAN COME BACK AFTER 1 WEEK IF SHE IS NOT IMPROVED. Medications: New loratadine (Allergy Relief (loratadine)) 10 mg PO DAILY 10 days 10 tabs 1RF RHINITIS prednisone 20 mg PO BID 5 days 10 tabs 0RF COUGH benzonatate 150 mg PO BID 15 days 30 caps 1RF SEVERE COUGH Coding Level of Care Code Est Pt Level 3 (42401) Diagnoses Respiratory tract congestion with cough R05.8
== END 2024-10-31 15:25 | disposition home or self-care (01) ==
PROVIDERS: PCP Internal Medicine; Visit Provider Internal Medicine
DX: R05.8 Other specified cough (principal)
CPT/HCPCS: 99213

== ENCOUNTER → 2024-10-31 14:57 | Outpatient (BNVA) | payer OTHER, SELFPAY | PROVIDERS: PCP Internal Medicine; Visit Provider Internal Medicine | DX: R05.8 Other specified cough (principal) | CPT/HCPCS: 99212 ==

== ENCOUNTER 2024-11-07 15:37 | Outpatient (AMB) | payer OTHER, SELFPAY ==
[2024-11-07 15:45] VITALS: BP 140/78; PULSE 95; O2SAT 98
--- NOTE | 2024-11-07 15:45 | A.OFFVIS_ITS ---
Vital Signs 11/07/24 15:45 Height 4 ft 11 in BP 140/78 H Blood Pressure Location Lt brachial Position Sitting Pulse 95 Pulse Source Pulse Oximeter Pulse Oximetry (%) 98 Oxygen Delivery Method Room Air Intake Visit Reasons: cough Intake Note: pt is here for sick visit, the cough is very bad, she feels like she is short of breath, and water feels like it is stuck in the throat area. pt needs refill on albuterol for nebulizer Resident Services Supervisor Required: No Allergies acetaminophen [From Tylenol] Allergy (Severe, Verified 11/07/24 16:33) Shortness of Breath ibuprofen Allergy (Severe, Verified 11/07/24 16:33) shortness of breath canned food Allergy (Intermediate, Uncoded 11/07/24 16:33) Shortness of Breath Medication List - Last Reconciled 11/07/24 by Antonia Roach MD [bed bars As directed NS] [adult diapers medium Use for incontinence episodes at night.] [adult pull-ups As directed NS] albuterol sulfate 2.5 mg (3 mL) inhalation Q4-6H PRN 30 days alendronate (Fosamax) 70 mg PO QWEEK 90 days alum-mag hydroxide-simeth 200-200-20 mg/5 mL (Maalox Advanced) 10 mL PO ONCE PRN 30 days [bed table As directed] benzonatate 150 mg PO BID 15 days [Blood pressure monitor As directed] capsaicin 0.025% 1 appl topical BID 30 days cetirizine 10 mg PO DAILY PRN cyclobenzaprine 10 mg PO TID PRN disposable gloves Size medium [disposable pads-up to 3/day As directed] docusate sodium (Colace) 100 mg PO BID doxepin 10 mg PO BEDTIME duloxetine 20 mg PO DAILY 90 days gabapentin 100 mg PO TID lisinopril 5 mg PO DAILY 90 days lorazepam 0.5 mg PO BEDTIME PRN 30 days lorazepam 1 mg PO DAILY PRN memantine 10 mg PO QAM [mobility scooter As directed NS] montelukast 10 mg PO DAILY nebulizer and compressor (Comp-Air Nebulizer Compressor) As directed [non-slip shower mat As directed NS] ondansetron HCl 4 mg PO Q8H PRN 30 days pantoprazole 40 mg PO DAILY@0630 prednisone 20 mg PO BID 5 days [raised toilet seat As directed NS] [showering chairs As directed] simvastatin 20 mg PO BEDTIME walker As directed walker Use As directed NS Do you need a note to return to daycare/school/sports/work: No HPI HPI cough: Details: THIS 69 YEARS OLD L[place] SPEAKING FEMALE, WAS SEEN ONLY 1 WEEK AGO. SHE STILL CONTINUES TO CALL ALMOST ON A DAILY BASIS COMPLAINING OF ONGOING COUGH, AND SOME SHORTNESS OF BREATH ESPECIALLY WHEN SHE HAS A BOUT OF COUGH. HER COUGH IS MOSTLY NONPRODUCTIVE AND SHE HAS IRRITATION DEEP DOWN IN HER THROAT. PATIENT IS STUCK WITH THE IDEA THAT SHE NEEDS AN ANTIHISTAMINIC COUGH MEDICINE. SHE HAS SOME NAMES OF ANTIHISTAMINIC AGENTS FROM LONG TIME AGO, WHICH ARE NOT AVAILABLE HERE IN [place]. HAS DIFFICULTY IN UNDERSTANDING THAT LORATADINE OR CETIRIZINE ANTIHISTAMINICS. SHE IS LOOKING FOR A COUGH MEDICINE WITH ANTIHISTAMINIC AGENT. MOST OF THE COUGH PREPS ARE OVER THE COUNTER AND NOT PAID BY INSURANCE. SHE WAS PRESCRIBED BENZONATATE AND CAPSULES BUT SHE DID NOT GET IT FROM THE PHARMACY. SHE DOES HAVE MONTELUKAST 10 MG WHICH SHE TAKES ONCE A DAY SHE ALSO HAS LORAZEPAM AT HOME WHEN SHE USES IT P.R.N.. TODAY I EXPLAINED TO HER THAT SHE WAS SEEN AT [facility] EM[facility] RO[facility] ON 07/12 WITH CHEST CONGESTION COUGH AND SHORTNESS OF BREATH. SHE TESTED POSITIVE FOR COVID, AND SHE WAS PRESCRIBED SYMPTOMATIC TREATMENT. SHE WAS TOTALLY ON AWARE OF THIS INFORMATION THAT SHE HAD COVID INFECTION, WITH AN INFILTRATE IN THE LINGULAR LOBE. ANYWAY SHE WAS TREATED WITH COMBINATION OF AZITHROMYCIN AND AUGMENTIN FOR 1 WEEK . LAST TIME I SAW HER WAS ON 10/31, AND IN ADDITION TO ABOVE I HAD PRESCRIBED PREDNISONE 20 MG B.I.D. TO TAKE FOR 1 WEEK, WHICH SHE DID SHE WAS SEEN TODAY AGAIN BECAUSE OF HER COMPLAINT OF ONGOING COUGH. IT SHOULD BE NOTED THAT SHE HAS HAD. NO FEVER OR CHILLS HER OXYGEN LEVEL HAS REMAINED NORMAL AND SHE DOES NOT HAVE RESPIRATORY DISTRESS EXCEPT WHEN SHE HAS A BOUT OF COUGH. [facility] Medical History Cognitive disorder Hand numbness GERD (gastroesophageal reflux disease) Cold intolerance Rheumatoid arthritis Lumbar spinal stenosis RAÚL (obstructive sleep apnea) Trigger finger Sleep disorder breathing Latent tuberculosis Cough Asthma Chronic pain syndrome Myofascial muscle pain Osteoarthritis Fibromyalgia HTN (hypertension) Anxiety Surgical History Hx of ovarian cystectomy Hx of cervical discectomy History of lumbar surgery Family History Father Diabetes Mother Acute arthritis Other Mental health disorder Social History Household Members: None Housing: Apartment Are you a primary healthcare project manager to a significant other at home: No Do you presently have visiting nurse or other home services: Yes (PR INTERN.) Alcohol intake: never Comment: COUNTS CORRECT Patient Tobacco Use Status: Never used Tobacco e-Cigarette/Vaping Use: Never Used Advance Directives Date on File: 02/26/22 service: No Current occupational status: unemployed Cognitive needs: No Hearing needs: No Vision needs: No Review of Systems Const All systems reviewed & are unremarkable except as noted in HPI and below Eyes Reports no additional complaints ENT Reports nasal congestion (Off and on) Card Denies chest pain, Denies irregular heart rhythm and Denies leg edema Resp Reports as per HPI GI Reports no additional complaints Reports no additional complaints Musc Reports back pain and Reports myalgias Skin/Breast Reports system reviewed and no additional complaints, except as documented Neuro Reports memory loss (Mild) Psych Reports anxiety and Reports memory loss (Mild) Endo Reports no additional complaints Julien/Lymph Reports no additional complaints Physical Exam Vital Signs: Last Vital Signs Pulse 95 11/07/24 15:45 BP 140/78 H 11/07/24 15:45 Pulse Ox 98 11/07/24 15:45 Oxygen Delivery Method Room Air 11/07/24 15:45 PATIENT IS VERY ANXIOUS. HAS CONSTANT COUGH. CAN NOT EVEN COME COMPLETE THE SENTENCES Const Other: Patient comes in wearing winter jacket, and she is somewhat unkempt. General: comfortable, no acute distress, alert and awake Orientation/consciousness: patient oriented x3 HEENT Head: Yes normal to inspection General nose exam: No nasal polyps present, No nasal discharge present and Other nasal findings present (HAS MODERATE NASAL CONGESTION ON BOTH SIDES) Face and sinus: Yes sinuses nontender Mouth: oropharynx normal (NO DEFINITE REDNESS OR EXUDATES NOTED) Teeth and gingiva: edentulous Eyes General: appearance normal, both eyes and all related structures Neck Neck: Yes normal visual inspection, Yes no lymphadenopathy, Yes trachea midline and Yes no JVD Thyroid: Thyroid normal Chest Chest palpation & inspection: normal inspection of the chest, normal palpation of entire chest wall and no tenderness Resp Other: Percussion note resonant, breath sounds are distant on both sides. PATIENT DOES HAVE INTERMITTENT COUGH , BUT TODAY SHE WAS ABLE TO TAKE DEEP BREATHS WITHOUT MUCH COUGH. I DID NOT HEAR ANY LOCALIZED CREPITATIONS OR WHEEZES. Cardio Palpation: normal PMI Rate: regular rate Rhythm: regular rhythm Heart sounds: no gallops and no murmurs GI Palpation (GI): Soft to palpation, nontender, No hepatosplenomegaly present and no masses Auscultation: normal bowel sounds Back/Spine/Pelvis Thoracic/Lumbar Spine: thoracic and lumbar spine normal to inspection and thoraco-lumbar ROM limited Skin General skin exam: no rashes or lesions noted Neuro General: patient oriented x3 and no focal motor deficits Cranial nerves: Yes CN's II-XII intact bilaterally Extrem General: Yes normal to inspection, Yes no clubbing, cyanosis or edema and Yes no calf tenderness Psych Appearance: poorly kempt (Somewhat unkempt, comes in wearing a heavy winter jacket .) and other (Seems to be anxious.) Speech and movement: Normal speech and movement present Affect: Anxious affect present Assessment & Plan Assessment & Plan (1) Asthma: Comment: THIS PATIENT HAS COMPLAINT OF FREQUENT BOUTS OF CHEST CONGESTION WITH COUGH AND SOME WHEEZING. SHE PROBABLY DOES HAVE MILD BRONCHIAL ASTHMA. SEEMS TO BE DOING OKAY WITH USE OF ALBUTEROL IN THE NEBULIZER P.R.N. SHE IS ALSO TAKING MONTELUKAST 10 MG DAILY. Code(s): J45.909 - Unspecified asthma, uncomplicated Category: Medical Plan: AGAIN I EXPLAINED TO HER ABOUT POSSIBLE ASTHMA WHICH SEEMS TO BE WELL CONTROLLED. AND ADVISED TO CONTINUE THE PRESENT MEDICAL REGIMEN. (2) Cough: Comment: AT PRESENT HER COUGH IS AGGRAVATED AND THIS SEEMS TO BE HER MAIN COMPLAINT. I EXPLAINED TO HER THAT THIS IS POST INFECTIOUS COUGH AND THE FACT THAT SHE SUFFERED FROM COVID INFECTION. SHE WAS TOTALLY SURPRISED TO HEAR THAT, AND SAY IS THAT SHE WAS NOT TOLD ABOUT THIS WHEN [place] [facility] [place] ANYWAY I HAVE EXPLAINED IT TO HER AND TRIED TO ALLEVIATE HER ANXIETY. Code(s): R05.9 - Cough, unspecified Category: Medical Plan: I EXPLAINED TO HER THAT SHE CAN HAVE POST INFECTIOUS COUGH OR POST COVID COUGH LINGERING ON FOR 10 12 WEEKS . AND SHE NEEDS TO BE PATIENT. SHE NEEDS TO USE COUGH MEDICINE WITH GUAIFENESIN AND DM , BUT IT MAY NOT BE ALL COVERED BY HER INSURANCE. SHE THINKS AN ANTIHISTAMINIC AGENT WOULD ALLEVIATE HER COUGH. AND I HAVE TOLD HER TO USE CETIRIZINE 10 MG ONCE A DAY. (3) Anxiety, generalized: Comment: She does have anxiety syndrome, which is a at peak right now after she had this acute COVID infection, without generalized pneumonia. I sat with her and explained in great detail. I advised her to be patient . I gave in writing that the cough may linger on for about 10-12 weeks . She seems to understand , She may use Robitussin with DM 2 tsp t.i.d. but this will be [id number]. Code(s): F41.1 - Generalized anxiety disorder Category: Medical Plan: as above Medications: New guaifenesin ER (Mucinex) 600 mg PO BID 30 tabs 4RF cough 15 days Refilled albuterol sulfate 2.5 mg (3 mL) inhalation Q4-6H PRN 180 mL 6RF shortness of breath or wheezing 30 days Coding Level of Care Code Est Pt Level 3 (96889) Diagnoses Asthma J45.909 Cough R05.9 Anxiety, generalized F41.1
== END 2024-11-07 16:13 | disposition home or self-care (01) ==
PROVIDERS: PCP Internal Medicine; Visit Provider Internal Medicine
DX: J45.909 Unspecified asthma, uncomplicated (principal); R05.9 Cough, unspecified; F41.1 Generalized anxiety disorder
CPT/HCPCS: 99213

== ENCOUNTER → 2024-11-07 15:37 | Outpatient (BNVA) | payer OTHER, SELFPAY | PROVIDERS: PCP Internal Medicine; Visit Provider Internal Medicine | DX: J45.909 Unspecified asthma, uncomplicated (principal); F41.1 Generalized anxiety disorder | CPT/HCPCS: 99212 ==

== ENCOUNTER 2024-11-16 15:35 | Outpatient (AMB) | payer OTHER, SELFPAY ==
--- NOTE | 2024-11-16 15:37 | MHC.OFFVIS ---
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: No Allergies acetaminophen [From Tylenol] Allergy (Severe, Verified 11/16/24 15:58) Shortness of Breath ibuprofen Allergy (Severe, Verified 11/16/24 15:58) shortness of breath canned food Allergy (Intermediate, Uncoded 11/16/24 15:58) Shortness of Breath Medication List - Last Reconciled 11/16/24 by Antonia Roach MD [bed bars As directed NS] [adult diapers medium Use for incontinence episodes at night.] [adult pull-ups As directed NS] albuterol sulfate 2.5 mg (3 mL) inhalation Q4-6H PRN 30 days alendronate (Fosamax) 70 mg PO QWEEK 90 days alum-mag hydroxide-simeth 200-200-20 mg/5 mL (Maalox Advanced) 10 mL PO ONCE PRN 30 days [bed table As directed] benzonatate 150 mg PO BID 15 days [Blood pressure monitor As directed] capsaicin 0.025% 1 appl topical BID 30 days cetirizine 10 mg PO DAILY PRN cyclobenzaprine 10 mg PO TID PRN disposable gloves Size medium [disposable pads-up to 3/day As directed] docusate sodium (Colace) 100 mg PO BID doxepin 10 mg PO BEDTIME duloxetine 20 mg PO DAILY 90 days gabapentin 100 mg PO TID guaifenesin ER (Mucinex) 600 mg PO BID 15 days lisinopril 5 mg PO DAILY 90 days lorazepam 0.5 mg PO BEDTIME PRN 30 days lorazepam 1 mg PO DAILY PRN memantine 10 mg PO QAM [mobility scooter As directed NS] montelukast 10 mg PO DAILY nebulizer and compressor (Comp-Air Nebulizer Compressor) As directed [non-slip shower mat As directed NS] ondansetron HCl 4 mg PO Q8H PRN 30 days pantoprazole 40 mg PO DAILY@0630 [raised toilet seat As directed NS] [showering chairs As directed] simvastatin 20 mg PO BEDTIME walker As directed walker Use As directed NS Do you need a note to return to daycare/school/sports/work: No HPI HPI Cough: Details: 69 years old female, comes back today. For follow-up after 2 weeks She has continue to have frequent bouts of cough. She went back to the emergency room of [facility] in [place] on 11/15 , and was thoroughly rechecked. Chest x-ray was negative. She was treated with updraft of ipratropium and albuterol solution, and she claims that it worked better than the albuterol alone . She was also given a dose of guaifenesin with codeine, and she rates about this medicine. Previously she was prescribed Mucinex 600 mg b.i.d. but she could not get due to waller issue. I also noticed that she is on lisinopril 5 mg daily for hypertension,, and I wonder if this is contributing to her ongoing cough. Patient remains very anxious and she even checked for COVID infection and it was negative. FORMERLY [facility], [facility] Medical History Cognitive disorder Hand numbness GERD (gastroesophageal reflux disease) Cold intolerance Rheumatoid arthritis Lumbar spinal stenosis RAÚL (obstructive sleep apnea) Trigger finger Sleep disorder breathing Latent tuberculosis Cough Asthma Chronic pain syndrome Myofascial muscle pain Osteoarthritis Fibromyalgia HTN (hypertension) Anxiety Surgical History Hx of ovarian cystectomy Hx of cervical discectomy History of lumbar surgery Family History Father Diabetes Mother Acute arthritis Other Mental health disorder Social History Household Members: None Housing: Apartment Are you a primary health care law specialist to a significant other at home: No Do you presently have 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.) Alcohol intake: never Comment: COUNTS CORRECT Patient Tobacco Use Status: Never used Tobacco e-Cigarette/Vaping Use: Never Used Advance Directives Date on File: 02/26/22 service: No Current occupational status: unemployed Cognitive needs: No Hearing needs: No Vision needs: No Review of Systems Const All systems reviewed & are unremarkable except as noted in HPI and below Eyes Reports no additional complaints ENT Reports nasal congestion (Off and on) Card Denies chest pain, Denies irregular heart rhythm and Denies leg edema Resp Reports as per HPI GI Reports no additional complaints Reports no additional complaints Musc Reports back pain and Reports myalgias Skin/Breast Reports system reviewed and no additional complaints, except as documented Neuro Reports memory loss (Mild) Psych Reports anxiety and Reports memory loss (Mild) Endo Reports no additional complaints Julien/Lymph Reports no additional complaints Physical Exam Vital Signs: Last Vital Signs Pulse 85 11/16/24 15:38 BP 140/70 H 11/16/24 15:38 Pulse Ox 97 11/16/24 15:38 Oxygen Delivery Method Room Air 11/16/24 15:38 PATIENT IS VERY ANXIOUS. HAS CONSTANT COUGH. CAN NOT EVEN COME COMPLETE THE SENTENCES Const Other: Patient comes in wearing winter jacket, and she is somewhat unkempt. General: comfortable, no acute distress, alert and awake Orientation/consciousness: patient oriented x3 HEENT Head: Yes normal to inspection General nose exam: No nasal polyps present, No nasal discharge present and Other nasal findings present (HAS MODERATE NASAL CONGESTION ON BOTH SIDES) Face and sinus: Yes sinuses nontender Mouth: oropharynx normal (NO DEFINITE REDNESS OR EXUDATES NOTED) Teeth and gingiva: edentulous Eyes General: appearance normal, both eyes and all related structures Neck Neck: Yes normal visual inspection, Yes no lymphadenopathy, Yes trachea midline and Yes no JVD Thyroid: Thyroid normal Chest Chest palpation & inspection: normal inspection of the chest, normal palpation of entire chest wall and no tenderness Resp Other: Percussion note resonant, breath sounds are distant on both sides. PATIENT DOES HAVE INTERMITTENT COUGH , BUT TODAY SHE WAS ABLE TO TAKE DEEP BREATHS WITHOUT MUCH COUGH. I DID NOT HEAR ANY LOCALIZED CREPITATIONS OR WHEEZES. Cardio Palpation: normal PMI Rate: regular rate Rhythm: regular rhythm Heart sounds: no gallops and no murmurs GI Palpation (GI): Soft to palpation, nontender, No hepatosplenomegaly present and no masses Auscultation: normal bowel sounds Back/Spine/Pelvis Thoracic/Lumbar Spine: thoracic and lumbar spine normal to inspection and thoraco-lumbar ROM limited Skin General skin exam: no rashes or lesions noted Neuro General: patient oriented x3 and no focal motor deficits Cranial nerves: Yes CN's II-XII intact bilaterally Extrem General: Yes normal to inspection, Yes no clubbing, cyanosis or edema and Yes no calf tenderness Psych Appearance: poorly kempt (Somewhat unkempt, comes in wearing a heavy winter jacket .) and other (Seems to be anxious.) Speech and movement: Normal speech and movement present Affect: Anxious affect present Results Reviewed Results Reviewed: Chest x-ray at [facility] on 11/15 , was reported to be negative for any pneumonia Assessment & Plan Assessment & Plan (1) Asthma: Comment: THIS PATIENT HAS COMPLAINT OF FREQUENT BOUTS OF CHEST CONGESTION WITH COUGH AND SOME WHEEZING. SHE PROBABLY DOES HAVE MILD BRONCHIAL ASTHMA. SEEMS TO BE DOING OKAY WITH USE OF ALBUTEROL IN THE NEBULIZER P.R.N. albuterol solution is being changed to ipratropium-albuterol combination. SHE IS ALSO TAKING MONTELUKAST 10 MG DAILY. Code(s): J45.909 - Unspecified asthma, uncomplicated Category: Medical Plan: Ipratropium-albuterol solution 3 male in the nebulizer Q 6 hours while awake (2) RAÚL (obstructive sleep apnea): Comment: Has frequent bouts of choking and not able to go back to sleep. There is a high suspicion for obstructive sleep apnea. Or her symptoms may be due to anxiety. Code(s): G47.33 - Obstructive sleep apnea (adult) (pediatric) Category: Medical Plan: Once her cough settles down then she may need to have a sleep apnea test (3) Anxiety, generalized: Comment: She does have anxiety syndrome, which is a at peak right now after she had this acute COVID infection, without generalized pneumonia. I sat with her and explained in great detail. I advised her to be patient . I gave in writing that the cough may linger on for about 10-12 weeks . She seems to understand , She may use Robitussin with DM 2 tsp t.i.d. but this will be [id number]. Code(s): F41.1 - Generalized anxiety disorder Category: Medical Plan: Patient needs lot of reassurance on an ongoing basis (4) Respiratory tract congestion with cough: Comment: THIS PATIENT HAS PERSISTENT, ONGOING COUGH FOR 2-3 WEEKS. STARTED AFTER SHE WAS EXPOSED TO A GRANDCHILD WHO HAD UPPER RESPIRATORY INFECTION. CLINICALLY IT SEEMS TO BE VIRAL UPPER RESPIRATORY INFECTION. ADDITIONALLY SHE HAS COMPONENT OF ACUTE RHINITIS, ALSO SHE HAS SIGNIFICANT DEGREE OF ANXIETY. SHE IS ON LISINOPRIL 5 MG A DAY FOR HYPERTENSION AND I THINK THIS MAY BE CONTRIBUTING TO HER COUGH Code(s): R05.8 - Other specified cough Category: Medical Plan: I ADVISED HER TO HOLD OFF LISINOPRIL FOR A FEW WEEKS GUAIFENESIN WITH CODEINE SYRUP IS ORDERED TO BE TAKEN Q.6 HOURS P.R.N. FOR COUGH SHE IS ALSO ADVISED TO GET THE MUCINEX 600 MG B.I.D. FROM THE PHARMACY Medications: New ipratropium-albuterol 0.5 mg-3 mg(2.5 mg base)/3 mL 3 mL inhalation Q6H PRN 180 mL 3RF wheezing 3 weeks codeine-guaifenesin 10-100 mg/5 mL 5 mL PO Q6H 600 mL 2RF PERSISTANT COUGH 30 days Coding Level of Care Code Est Pt Level 3 (89212) Diagnoses Asthma J45.909 RAÚL (obstructive sleep apnea) G47.33 Anxiety, generalized F41.1 Respiratory tract congestion with cough R05.8
[2024-11-16 15:38] VITALS: BP 140/70; PULSE 85; O2SAT 97
--- OUTSIDE RECORDS SUMMARY | 2024-11-16 19:17 | XMS_ITS | Continuity of Care Document ---
Author Organization [employer], [place] [facility] - [employer] Address [address] [place] [address] Care Team Providers Care Flying Shear Operator Name Role Phone HIM CCA OTHER NEHAL GIBBS Primary Care Provider Assessment Encounter Date Assessment Date Assessment LastModified by Organization Details LastModified Time 11/15/2024 11/15/2024 I provided real -time medical direction via phone for this encounter and was available for additional phone-based assistance as needed. I have reviewed and agree with the Assessment and Plan as documented by the Rubber Vulcanizing Machine Operator. Patient given the opportunity to ask questions. Our service contacted for an assessment of: Shortness of breaths As per above, patient with history of asthma. Has been short of breath for the past several weeks. She was treated by this service over the past several weeks with prednisone. She took her last dose of prednisone around 3:00 a.m. this morning when she woke up with significant shortness of breath. She has been off and on using inhalers or nebulizers. She has also been prescribed antibiotics by her refrigeration engineering teacher. She feels like her feet are swelling. Overall feels significantly unwell. Per civil engineer on the scene, patient with mild to moderate distress. Increased work of breathing. Vitals as above. Wheezing auscultated per civil engineer on the scene. Impression: Asthma with acute exacerbation Plan: Patient has been adequately treated with prednisone and antibiotics to cover community-acquir ed pneumonia. Additionally the patient has ruled out for COVID and flu. She last tested positive for COVID 1 month ago. Question whether not she may have respiratory syncytial virus or other atypical organism given her relative immune suppression. She wants to be treated currently with IV Solu-Medrol and to receive IV fluids as she states she has had little p.o. intake over the past several days. I am concerned with giving the patient anymore steroids as I do not think that they would be of benefit to her. Additionally giving IV fluids in the context of self-reported increase in peripheral edema is not prudent. After discussion the patient is agreement to go to the emergency department for further workup and evaluation. Expect call made for [facility] ED. Allergies: Reviewed [email or web address] Not available 11/15/2024 16:37:30 Plan of Treatment Reminders Order Date Submit Date Provider Last Modified By Organization Details Last Modified Time Details Appointments None record ed. Lab None record ed. Referral None record ed. Procedures None record ed. Surgeries None record ed. Imaging None record ed. Medication Orders None record ed. Patient TargetsNo targets recorded. Patient InstructionsNo instructions recorded. Reason for Referral None Reported. Medical Equipment None Reported. Allergies Allergen ID Allergen Name Allergen Category Reaction Reaction Severity Criticality Documentation Date Start Date Code Code System Note Provider Name and Address Organization Details Recorded Time 5838 acetamino phen medicatio n Not available Not available Not available 05/25/2024 161 RxNorm Not Available [facility] - production 4 03:47:30 5839 ibuprofen medicatio n Not available Not available Not available 05/25/2024 5640 RxNorm Not Available [facility] - production 5 12:09:30 Medications Name Sig Start Date Stop Date Status Note LastModified by Organization Details LastModified Time delivery fee active Not Available Not Available Not Available quetiapine 25 mg tablet active Not Available Not Available Not Available cyclobenzapr ine 10 mg tablet active Not Available Not Available Not Available albuterol sulfate 0.63 mg/3 mL solution for nebulization active Not Available Not Available Not Available prednisone 10 mg tablet active Not Available Not Available Not Available ipratropium 0.5 mg-albuterol 3 mg (2.5 mg base)/3 mL nebulization soln Inhale 3 mL 4 times a day by nebulizatio n route. 2024 active Not Available Not Available Not Avai lable albuterol sulfate 2.5 mg/3 mL (0.083 %) solution for nebulization active Not Available Not Available Not Available trazodone 50 mg tablet active Not Available Not Available No t Available cetirizine 10 mg tablet active Not Available Not Available Not Available azithromycin 250 mg tablet TAKE 2 TABLETS (500 MG) BY ORAL ROUTE ONCE DAILY FOR 1 DAY THEN 1 TABLET (250 MG) BY ORAL ROUTE ONCE DAILY FOR 4 DAYS active Not Available Not Available No t Available benzonatate 200 mg capsule active Not Available Not Available Not Available ondansetron HCl 4 mg tablet active Not Available Not Available Not Available prednisone 20 mg tablet Take 2 tablets every day by oral route after meal(s) for 5 days. 2024 active Not Available Not Available Not Avai lable alendronate 70 mg tablet active Not Available Not Available Not Available prednisone 5 mg tablet active Not Available Not Available No t Available erythromycin 500 mg tablet,delay ed release active Not Available Not Available N ot Available lactated Ringers intravenous solution Inject 1000 mL by intravenous route. 2024 active Not Available Not Available Not Avai lable doxepin 10 mg capsule active Not Available Not Available N ot Available rifampin 300 mg capsule active Not Available Not Available N ot Available hydromorphon e 2 mg tablet active Not Available Not Available Not Available lorazepam 0.5 mg tablet active Not Available Not Available Not Available meclizine 25 mg tablet active Not Available Not Available No t Available benzonatate 100 mg capsule Take 200 mg by oral route. 2024 active Not Available Not Available Not Avai lable pantoprazole 40 mg tablet,delay ed release active Not Available Not Available N ot Available simvastatin 20 mg tablet active Not Available Not Available Not Available ibuprofen 200 mg tablet Take 3 tablets by oral route. 2024 active Not Available Not Available Not Avai lable docusate sodium 100 mg capsule active Not Available Not Available N ot Available montelukast 10 mg tablet active Not Available Not Available Not Available capsaicin 0.025 % topical cream active Not Available Not Available Not Available lisinopril 5 mg tablet active Not Available Not Available No t Available zolpidem 5 mg tablet active Not Available Not Available No t Available gabapentin 100 mg capsule active Not Available Not Available Not Available lorazepam 1 mg tablet active Not Available Not Available No t Available methylpredni solone 4 mg tablets in a dose pack active Not Available Not Available No t Available hydroxyzine HCl 10 mg tablet active Not Available Not Available Not Available loratadine 10 mg tablet active Not Available Not Available Not Available amoxicillin 875 mg-potassium clavulanate 125 mg tablet active Not Available Not Available Not Available oxycodone 5 mg tablet active Not Available Not Available No t Available cyclobenzapr ine 5 mg tablet active Not Available Not Available Not Available memantine 10 mg tablet active Not Available Not Available No t Available memantine 5 mg tablet active Not Available Not Available No t Available duloxetine 20 mg capsule,santiago yed release active Not Available Not Available Not Available duloxetine 30 mg capsule,santiago yed release active Not Available Not Available Not Available Mintox Maximum Strength 400 mg-400 mg-40 mg/5 mL oral suspension active Not Available Not Available N ot Available Antacid-Anti gas 200 mg-200 mg-20 mg/5 mL oral suspension active Not Available Not Available N ot Available OneTouch Verio test strips active Not Available Not Available Not Available guaifenesin ER 600 mg tablet, extended release 12 hr Take 1 tablet every 12 hours by oral route as needed for 10 days, for phlegm, cough. 2024 active Not Available Not Available Not Avai lable OneTouch Verio Flex Meter active Not Available Not Available Not Available Xeljanz XR 11 mg tablet,exten ded release active Not Available Not Available Not Available Humira(CF) Pen 40 mg/0.4 mL subcutaneous kit active Not Available Not Available Not Available OneTouch Delica Plus Lancet 30 gauge active Not Available Not Available Not Available Vitals Date Recorded Oxygen saturation Oxygen saturation in Arterial blood by Pulse oximetry Body temperature Heart rate Respiratory rate Systolic blood pressure Diastolic blood pressure Provider Name and Address Organization Details Last Updated DateTime 5 98 % 98 % 98.1 [degF] 82 /min 18 /min 136 mm[Hg] 77 mm[Hg] Not Available [facility] production 5 14:12:15 Social History None recorded. Functional Status None recorded. Mental Status None recorded. Family History Nothing Reported. Medical History No medical history recorded. Gynecological HistoryNo gynecological history recorded. Obstetrics History GPAL:G 0 P 0 0 0 0 Past Encounters Encounter ID Performer Location Encounter Start Date Encounter Closed Date Diagnosis/Indication Diagnosis SNOMED-CT Code Diagnosis ICD10 Code Diagnosis Note [id number] Asya Prater MD [facility] - [facility] [address] [place] [phone] 10/22/2024 16:23:16 10/23/2024 00:19:26 Dyspnea [id number] R06.00 As noted, we were called to see this patient regarding concerns of cough and dyspnea. Evaluation in the field was performed by my civil engineer colleague, as noted above, I provided real-time direction and supervisio n for this visit. The evaluation revealed 69 yo woman with significan t anxiety who calls for dyspnea and cough for a week. She was seen in the ER yesterday and was discharged home; no paperwork is available. Her COVID test is positive. She is taking her albuterol nebs BID. She is concerned that she is not eating or drinking well, but drinks ~4 bottles of water a day and has good urine and stools. On exam she is in NAD. She is febrile to 102 with mild tachycardi a. She as clear lungs. Impression :Acute COVID infection Plan:Advis e albuterol nebs up to 4 times per day for cough, dyspnea or wheeze. 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 After review of her allergies she can take ibuprofen; will provide 600mg x 1 for her fever. Dispositio n: We discussed the diagnostic uncertaint y of home visits and the risk associated with this. In this case, the patient and I felt this to be an acceptable and reasonable amount of risk given the benefit of avoiding an ED visit. We discussed the need to seek care urgently/e mergently in the setting of any new or worsening serious symptoms, particular ly changes to consciousn ess, chest pain, worsened breathing. [id number] Mirta Bustamante MD Main - [facility] [address] [place] [address] [phone] 11/13/2024 11:13:56 11/13/2024 21:25:11 Exacerbation of moderate persistent asthma [id number] J45.41 s/p viral illness- no fever- no productive sputum/ abx not indicated again- just finished augmentin and azithro/ is off prednisone .- w/ wheezing will restart PCP team- if patient not improving pls consider repeat CXR lungs improved- patient feeling better with meds- requesting duoneb rx in lieu of plain albuterol- sent- aware to use duoneb rx for now 4 x per day- to d/w pulmonary d/w patient benzonatat e to stop coughing jags so can hydrate po- has had before- medic informed pam. it is not covered by insurance. she still requested rx- there is no cough suppressan t we can Rx thru this program that is covered/re d flags reviewed Dehydration [id number] E86 .0 pat. clinically dry / BUN 25- felt better after ivf [id number] Pricila Du MD Main - [facility] [address] [place] [phone] 11/15/2024 13:51:01 11/15/2024 19:52:39 Dyspnea [id number] R06.00 Health Concerns Section Related Observation LastModified by Organization Detai ls LastModified Time None Recorded Concern Status LastModified by Organization Details LastModified Time None Recorded Payers Encounter Date Sequence Insurance Name Policy Number Policy Marks Covered Member ID Marks Member ID Guarantor Name 11/15/2024 1 [facility] - DOS ON OR AFTER 2023 - DUAL ELIGIBLE - RESIDENTIAL OPTIONS AND ONE CARE (MEDICARE REPLACEMENT/ADV ANTAGE - HMO) Cherry Cool [id number] Cherry Cool Notes Date Note Type Note Provider Name and Address Organization Details Recorded Time 11/15/2024 text/html [facility] Nurse Triage Notes (Holli Miller - RN): Reason For Request: Pt is dehydrated and having a hard time breathing Chief Complaints: Dehydration, Breathing problems PMH: Hypertension, Rheumatoid Arthritis, Asthma PMH Reviewed at 11/15/2024 - 12:09 Allergies Reviewed at 11/15/2024 - 12:09 Comments: Has not had water for 2 days. Lips and skin are dry. Seen by [facility] 2 days, felt better after IVFs. Difficulty breathing and persistent cough. Patient had a hacking cough, difficulty to speak due to cough. Taking prednisone as prescribed. Took Benzonatate with no relief. Education provided on the response time and the member was advised to monitor reported s/s and seek emergency treatment if needed. ................... ................... ................... ................... ................... ................... ................... ........ Rubber Vulcanizing Machine Operator Note From Katheryn Ma: Sent to a call for a pt complaining of dehydration and difficulty breathing. SC[facility] arrives on scene, pt is alert and oriented, airway is patent. Pt appears anxious, moving around quickly, coughing, and talking consistently. Pt has history of asthma. Pt states she tested positive for Covid 19 one month ago. Pt complains of non-productive cough, sob, and chest heaviness x 1 month, and difficulty drinking fluids due to cough and increased chest heaviness. Pt states she has been to ED multiple times, been evaluated by refrigeration engineering teacher and [facility]. Pt states she has been prescribed antibiotics, prednisone, IV fluids, IV steroids benzonatate and nothing is working for her. Pt is prescribed Duo Nebs and states she has been using nebulizer three times daily with little relief. Pt states she last took Prednisone at approx 3am and states she is not going to take it anymore because it doesn't work for her. Pt insistently requests IV fluids and IV steroids, stating that's the only thing that will help her. BP:136/77, P:82, RR:18, SpO2:98% RA, T:98.1; Head: unremarkable; Lung sounds: slight expiratory wheeze bilaterally in upper lobes; Abdomen:soft, non-tender, no distention; Back: unremarkable; Extremities: unremarkable; Skin: pink, warm, dry; Duo neb administered. Pt reports little improvement. [facility] consulted and pt is advised she needs to be transported to ED for further eval since previous treatments don't appear to be working. Pt initially resists idea of going to ED, but then agrees to transport to [facility] ED. 911 called. Pt calms while waiting for ambulance. Pt care transferred to [facility] Dept. ................... ................... ................... ................... ................... ................... ................... ........ [facility] Consulted: Pricila Du ................... ................... ................... ................... ................... ................... ................... ........ Disposition: Fulfilled Pricila Du MD [address] [facility],[address], [place], [phone], [employer] - ElysiaSUPA NORMAN 11/15/2024 16:37:46 OBGyn Episode No OBEpisode recorded.
--- OUTSIDE RECORDS SUMMARY | 2024-11-16 19:18 | XMS_ITS | Data Portability ---
Author Organization [employer], [employer] Address [address] [place] [address] Care Team Providers Care Director Personal Name Role Phone HIM CCA OTHER BERNIENEHAL CHURCH Primary Care Provider Assessment Encounter Date Assessment Date Assessment LastModified by Organization Details LastModified Time 09/20/2024 09/20/2024 Pt reports a hx of Rheumatoid Arthritis, previously followed by rheum but her specialist retired. she states that her pcp is working on getting her another ruby on rails consultant. pt reports neck and trapezius pain which is typical of her RA. no morning stiffenss or constitutional symptoms- requesting prednisone per medic exam and hx, sounds like arthralgias not exactly c/w RA but she reports responsiveness to steroids before. recommend low dose steroids for 1 week, outpt follow up with PCP to assess response [email or web address] Not available 09/20/2024 23:07:37 11/13/2024 11/13/2024 I provided real -time medical direction via phone for this encounter, and was available for additional phone based assistance as needed. I have reviewed and agree with the Assessment and Plan as documented by the Sales Audit Clerk. We discussed the diagnostic uncertainty of home visits and the risk associated with this. In this case the patient and I felt this to be an acceptable and reasonable amount of risk given the benefit of avoiding an ED visit. The patient given the opportunity to ask questions. Advised close f/u with pcp and pulmonary- if develops CP/severe SOB/turning blue/uncontrolled n/v/d /AMS/ syncope/ hi fever to call 911- verbalized understanding of instruction [email or web address] Not available 11/13/2024 12:16:00 11/15/2024 11/15/2024 I provided real -time medical direction via phone for this encounter and was available for additional phone-based assistance as needed. I have reviewed and agree with the Assessment and Plan as documented by the Sales Audit Clerk. Patient given the opportunity to ask questions. [...] has also been prescribed antibiotics by her general education professor. She feels like her feet are swelling. Overall feels significantly unwell. Per jewel diameter gauger on the scene, patient with mild to moderate distress. Increased work of breathing. Vitals as above. Wheezing auscultated per jewel diameter gauger on the scene. Impression: Asthma with acute exacerbation Plan: Patient has been adequately treated with prednisone and antibiotics to cover community-acquire d pneumonia. Additionally the patient has ruled out [...] workup and evaluation. Expect call made for [facility] ED. Allergies: Reviewed [email or web address] Not available 11/15/2024 16:37:30 Plan of Treatment Reminders Order Date Submit Date Provider Last Modified By Organization Details Last Modified Time Details Appointments None recorded. Lab rapid SARS CoV 2 Ag, QL IA, respiratory specimen 2024 025 [facility], [address] [place] [address], [id number], 20:47:11 rapid flu (A+B) 2024 025 [facility], [address] [place] [address], [id number], 5 20:46:53 rapid SARS CoV 2 Ag, QL IA, respiratory specimen 2024 025 [email or web address] [facility], [address] [place] [address], [id number], 5 12:15:13 rapid flu (A+B) 2024 025 [email or web address] 0 [facility], [address] [place] [address], [id number], 5 12:15:13 BMP, serum or plasma 2024 025 [email or web address] 0 [facility], [address] [place] [address], [id number], 5 12:15:13 Referral None recorded. Procedures None recorded. Surgeries None recorded. Imaging None recorded. Medication Orders prednisone 20 mg tablet 2023 024 [facility], [address] [place], [address], 4 11:53:13 prednisone 20 mg tablet 2023 024 [facility], [address] [place], [address], 4 23:11:10 prednisone 20 mg tablet 2023 024 [email or web address] [facility], [address] [place], [address], 4 23:08:47 ibuprofen 200 mg tablet 2024 025 [facility], [address] [place], [address], 5 16:37:55 prednisone 20 mg tablet 2024 025 [facility], [address] [place], [address], 5 16:37:55 prednisone 20 mg tablet 2024 025 [facility], [address] [place], [address], 5 16:39:40 azithromyci n 250 mg tablet 2024 025 [facility], [address] [place], [address], 5 16:37:55 azithromyci n 250 mg tablet 2024 025 [facility], [address] [place], [address], 5 16:39:37 guaifenesin ER 600 mg tablet, extended release 12 hr 2024 025 [facility], [address] [place], [address], 5 16:39:42 ipratropium 0.5 mg-albutero l 3 mg (2.5 mg base)/3 mL nebulizatio n soln 2024 025 [email or web address] 0 [facility], [address] [place], [address], 5 12:15:13 prednisone 20 mg tablet 2024 025 [email or web address] 0 [facility], [address] [place], [address], 5 12:15:13 prednisone 20 mg tablet 2024 025 [facility], [address] [place], [address], 5 12:16:10 benzonatate 100 mg capsule 2024 025 [email or web address] 0 [facility], [address] [place], [address], 5 12:15:13 benzonatate 200 mg capsule 2024 025 [email or web address] 0 [facility], [address] [place], [address], 5 13:14:31 ipratropium 0.5 mg-albutero l 3 mg (2.5 mg base)/3 mL nebulizatio n soln 2024 025 [facility], [address] [place], [address], 5 12:16:07 lactated Ringers intravenous solution 2024 025 [email or web address] 0 [facility], [address] [place], [address], 5 12:15:13 Patient TargetsNo targets recorded. Patient InstructionsNo instructions recorded. Reason for Referral None Reported. Results Created Date Observation Date Name Description Value Unit Range Abnormal Flag Note LastModifiedBy Organization Detail LastModifiedTime 11/13/19 25 11/13/2024 BMP, serum or plasm a BUN 25 Not Available [facility] [address] [place] [address], [id number], 11/13/2024 11:39:21 11/13/19 25 11/13/2024 rapid flu (A+B) Flu negati ve Not Available [facility] [address] [place] [address], [id number], 11/13/2024 11:39:31 11/13/19 25 11/13/2024 rapid SARS CoV 2 Ag, QL IA, respi rator y speci men rapid SARS CoV 2 Ag, QL IA, respiratory specimen negati ve Not Available [facility] [address] [place] [address], [id number], 11/13/2024 11:39:30 Result Notes None recorded. Medical Equipment None Reported. Allergies Allergen ID [...] Not Available Not Available Vitals Date Recorded Heart rate Oxygen saturation Oxygen saturation in Arterial blood by Pulse oximetry Respiratory rate Body temperature Systolic blood pressure Diastolic blood pressure Provider Name and Address Organization Details Last Updated DateTime 4 98 /min 98 % 98 % 20 /min 98.6 [degF] 122 mm[Hg] 90 mm[Hg] Not Available [facility] 4 19:57:05 Date Recorded Oxygen saturation Oxygen saturation in Arterial blood by Pulse oximetry Heart rate Respiratory rate Provider Name and Address Organization Details Last Updated DateTime 09/20/2024 95 % 95 % 72 /min 16 /min Not Available [facility] 4 23:04:08 Date Recorded Oxygen saturation Oxygen saturation in Arterial blood by Pulse oximetry Body weight Heart rate Body height Respiratory rate Body temperature Systolic blood pressure Diastolic blood pressure Provider Name and Address Organization Details Last Updated DateTime 5 97 % 97 % 89196.6 4 g 108 /min 162.56 cm 18 /min 102.4 [degF] 133 mm[Hg] 84 mm[Hg] Not Available [facility] 5 16:23:19 Date Recorded Heart rate Oxygen saturation Oxygen saturation in Arterial blood by Pulse oximetry Body weight Body temperature Respiratory rate Systolic blood pressure Diastolic blood pressure Provider Name and Address Organization Details Last Updated DateTime 5 87 /min 96 % 96 % 64335.4 g 98.9 [degF] 18 /min 158 mm[Hg] 90 mm[Hg] Not Available [facility] 5 11:13:58 Date Recorded Oxygen saturation Oxygen saturation in Arterial blood by Pulse oximetry Body temperature Heart rate Respiratory rate Systolic blood pressure Diastolic blood pressure Provider Name and Address Organization Details Last Updated DateTime 98 % 98 % 98.1 [degF] 82 /min 18 /min 136 mm[Hg] 77 mm[Hg] Not Available [facility] 14:12:15 Social History None recorded. Functional Status None recorded. Mental Status None recorded. Family History Nothing Reported. Medical History No medical history recorded. Gynecological HistoryNo gynecological history recorded. Obstetrics History GPAL:G 0 P 0 0 0 0 Past Encounters Encounter ID Performer Location Encounter Start Date Encounter Closed Date Diagnosis/Indication Diagnosis SNOMED-CT Code Diagnosis ICD10 Code Diagnosis Note Magali Montana MD [facility] [address] [place] [id number] 11/22/2023 13:49:41 11/23/2023 10:14:11 Acute low back pain 677202568 M54.50 68 yo w/ chronic back pain s/p mechanical fall (pt unclear exactly how many days ago), no headstrike , who complains of worsened back pain. No saddle anesthesia , able to ambulate with pain, no paresthesi as. Unfortunat michelle she canceled an appointmen t at the chronic pain clinic today. States she is allergic to tylenol and is unclear on other medication intoleranc e, but denies sx of anaphylaxi s with ibuprofen. Explained to her and daughter that our diagnostic and therapeuti c options are limited in the home setting. Pt agreed to 15mg toradol IM and help from jewel diameter gauger to reschedule pain clinic appt as soon as possible. [id number] Emiliano Roy MD [facility] [address] [place] [id number] 04/06/2024 13:49:55 04/06/2024 20:33:11 Pain of left knee joint [id number] 79986 M25.562 [id number] Liza Davey MD [facility] [address] [place] [id number] 05/25/2024 19:05:15 05/26/2024 11:41:59 Postoperative pain [id number] G89.18 [id number] Asya Prater MD [facility] [address] [place] [id number] 06/10/2024 15:12:21 06/11/2024 18:23:36 Dizziness [id number] R42 As noted, we were called to see this patient regarding concerns of dizziness. Evaluation in the field was performed by my jewel diameter gauger colleague, as noted above, I provided real-time direction and supervisio n for this visit. The evaluation revealed 68 y/o woman with back surgery on 05/21, prescribed dilaudid and then gabapentin . After starting gabapentin 100mg TID she started having dizziness. No falls, no n/v.Her VS are stable and she is not orthostati c. No abnormal rhythms noted on EKG. Impression :Drug side effect Plan:Decre ase to 10mg gabapentin nightly; may increase slowly to 300mg but would discuss with prescriber . Dispositio n: We discussed the diagnostic uncertaint [...] worsening serious symptoms, particular ly changes to mentation, chest pain, dysnea. [id number] Asya Prater MD [facility] [address] [place] [id number] 07/25/2024 19:57:02 08/21/2024 18:04:13 Pain of left knee joint [id number] 84796 M25.562 As noted, we were called to see this patient regarding concerns of knee pain. Evaluation in the field was performed by my jewel diameter gauger colleague, as noted above, I provided real-time direction and supervisio n for this visit. The evaluation revealed 68 yo woman with chronic L knee pain, prior back surgery, who reports twisting her knee 1-2 days ago and exacerbati ng prior pain. She went to the ER yesterday and had benign imaging and was given a dose of dilaudid.S he is requesting prednisone which has worked in the past.She has no DM. Her prior dr retired and she is still waiting for a new one. Impression :acute on chronic knee pain; arthritis Plan:20mg prednisone x 5 days Dispositio n: We discussed the diagnostic uncertaint [...] ly changes to consciousn ess, chest pain, dyspnea. [id number] Jaron Sanderson MD [facility] [address] [place] [id number] 09/20/2024 23:04:04 09/21/2024 08:55:28 Neck pain [id number] M54.2 [id number] Asya Prater MD [facility] [address] [place] [id number] 10/22/2024 16:23:16 10/23/2024 00:19:26 Dyspnea [id number] R06.00 As noted, we were called to see this patient regarding concerns of cough and dyspnea. 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 [...] to consciousn ess, chest pain, worsened breathing. [id number] Mirta Bustamante MD [facility] [address] [place] [id number] 11/13/2024 11:13:56 11/13/2024 21:25:11 Exacerbation of moderate persistent asthma [id number] J45.41 s/p viral illness- no fever- no [...] that is covered/re d flags reviewed Dehydration [id number] E86 .0 pat. clinically dry / BUN 25- felt better after ivf [id number] Pricila Du MD [facility] [address] [place] [id number] 11/15/2024 13:51:01 11/15/2024 19:52:39 Dyspnea 642687069 R06.00 Health Concerns Section Related Observation LastModified by Organization Detai ls LastModified Time None Recorded Concern Status LastModified by Organization Details LastModified Time None Recorded Advance Directives Directive None Recorded Payers Encounter Date Sequence Insurance Name Policy Number Policy Marks Covered Member ID Marks Member ID Guarantor Name 07/25/2024 1 [facility] - DOS ON OR AFTER 2023 - DUAL ELIGIBLE - SNF OPTIONS AND ONE CARE (MEDICARE REPLACEMENT/ADV ANTAGE - HMO) Cherry Cool [id number] Cherry Cool 09/20/2024 1 [facility] - DOS ON OR AFTER 2023 - DUAL ELIGIBLE - SNF OPTIONS AND ONE CARE (MEDICARE REPLACEMENT/ADV ANTAGE - HMO) Cherry Cool [id number] Cherry Cool 10/22/2024 1 [facility] - DOS ON OR AFTER 2023 - DUAL ELIGIBLE - SNF OPTIONS AND ONE CARE (MEDICARE REPLACEMENT/ADV ANTAGE - HMO) Cherry Trevino Silvina [id number] Cherry Trevino iSlvina 11/13/2024 1 [facility] - DOS ON OR AFTER 2023 - DUAL ELIGIBLE - SNF OPTIONS AND ONE CARE (MEDICARE REPLACEMENT/ADV ANTAGE - HMO) Cherry Benitoalen Cool [id number] Cherry Trevino Silvina 11/15/2024 1 [facility] - DOS ON OR AFTER 2023 - DUAL ELIGIBLE - SNF OPTIONS AND ONE CARE (MEDICARE REPLACEMENT/ADV ANTAGE - HMO) Cherry Benitoalen Cool [id number] Cherry Woodall Uriel Cool Notes Date Note Type Note Provider Name and Address Organization Details Recorded Time 07/25/2024 text/html [facility] Nurse Triage Notes (Pino Luis): Reason For Request: Patient has leg pain and can not move. wants help. Chief Complaints: Pain PMH: Hypertension Allergies: Acetaminophen Comments: Spa Manager verified the member's name//address and phone number. Mbr calling reporting severe pain in L leg. Mbr reports she went to the ER yesterday, but states she got Dilaudid but they did not prescribe her anything for one. Mbr reports she needs prednisone to help with the pain and allow her to walk better. Mbr heard screaming in pain in background trying to walk to charge phone. Encouraged mbr to rest while awaiting [facility] visit. Education provided on the response time and the member was advised to monitor reported s/s and seek emergency treatment if needed -Robin Luis RN ..................... ..................... ..................... ..................... ..................... ..................... ............... Sales Audit Clerk Note From Jovanni Barakat: Dispatched for a female pt. with pain in her left knee. pt. was found alert and oriented x3 walking around apartment in obvious pain and discomfort. pt. noted she had left knee pain from arthritis and was seen in the ER yesterday and was given Diladuad for the pain and now she was uncomfortable today. pt. noted she used to see a doctor for this but she retired and now could not find a new doctor. stated this doctor used to give her prednisone which would relief the discomfort in her knee and that is what she was requesting today. language barrier limited communication unknown if patient ever used cortisone shots but noted she had spinal surgery at some point but unable to confirm what the surgery was for.pt. vitals assessed on scene. - chest pain -sob -abd pain -nvd -dizziness -weakness -pedal edema -cva tenderness -head pain -blurred vision -weakness -bowel issues -urinary issues. pt. assessment airway open and patent breathing non labored circulation +radial pulse -heent abnormalities -jvd -tracheal deviation +and= chest rise and fall abd soft and non tender pelvis in tact +cms in all extremities -dcapbtls -stroke scale findings. [facility] contacted and ordered 20mg PO prednisone per patient request but noted she would need to find a doctor for this in the future. also sent the remaining 4 day course to patient pharmacy.red flag warnings discussed and advised to call 911 if anything worsened. all times are approx.report completed by allison barakat. ..................... ..................... ..................... ..................... ..................... ..................... ............... Disposition: Fulfilled Asya Prater MD [address], [place], [address], [employer] 08/21/2024 06:47:12 09/20/2024 text/html [facility] Nurse Triage Notes (Holli Miller): Reason For Request: Patient has elbow pain and neck pain, right side of the body. Difficult to move and in pain. Chief Complaints: Joint pain/swelling PMH: Hypertension, Rheumatoid Arthritis Pain Assessment: Level 10 out of 10 Comments: Exacerbation of pain to right side of neck down the arm. Unable to move right arm. Took pain medication in the morning with no relief. History of chronic pain from arthritis. No falls or recent injuries. Rates pain 07/27. ..................... ..................... ..................... ..................... ..................... ..................... ............... Sales Audit Clerk Note From Wayne Malhotra: [facility] visit for female pt. Pt presents complaining of pain on right side of neck and into right arm. Pt believes this is due to her history of rheumatoid arthritis with current lack of outpatient follow up for chronic pain of this nature. Pt was prescribed cyclobenzaprine at some point which she tried this morning without effectiveness. Pt has extensive drug allergy list with allergy to NSAIDS in addition to tylenol. Pt is still looking for outpatient providers and reports that prednisone has helped in the past for this. Consulted with [facility] Dr. Sanderson who prescribed course of prednisone with 20 mg given on scene. Reviewed red flags for ED. Pt education provided. ..................... ..................... ..................... ..................... ..................... ..................... ............... [facility] Consulted: Jaron Sanderson ..................... ..................... ..................... ..................... ..................... ..................... ............... Disposition: Fulfilled Jaron Sanderson MD [address] [place] [address],[address], [place], [address], [employer] 09/20/2024 23:08:59 10/22/2024 text/html [facility] Nurse Triage Notes (Watson Garza - RN): Reason For Request: Pt reporting a severe cold + fever>pt notes going to the hospital recently Patient Reports: Cough, fever greater than 2 days ; Sputum increase ; Cough; Shortness of breath with exertion; Pain with inspirationDenies: Increased work of breathing/labored ? with or without fever Unable to speak in full sentences without distress Discoloration of skin -cyanosis Needs to sleep sitting up, can? t catch breath Shortness of breath in setting of confusion Lower extremity swelling History of asthma, increased use of inhaler COPD Chief Complaints: Cough, Fever/chillsPMH: Hypertension, Rheumatoid ArthritisComments: Spa Manager verified the Pt.'s name//address and phone number. Education provided on the response time and the Pt. was advised to monitor reported s/s and seek emergency treatment if needed. Pt reports feeling unwell with a cough/cold and congestion - Fever - SOB - Pt is speaking full sentences - S/S for 7 days - Seen in the hospital and discharged - Negative work up - S/S not improving - Wellness visit requested. Sales Audit Clerk Organization Information for Kieran [facility] Business Legal Name: [facility] Transportation Address: [address] [place] [address], [address] [address], Composing Machine Operator/Tender: Joesph CHURCH No.: [id number] Sales Audit Clerk POC Test Results from [facility] Rapid COVID antigen (17:42:26) COVID: + Rapid influenza antigen (17:42:28) Flu: - ..................... ..................... ..................... ..................... ..................... ..................... ............... Sales Audit Clerk Note From Kieran Murrieta: This 69-year-old female with a history including but not limited to hypertension, COPD and rheumatoid arthritis requested a visit today to address one week of cough producing yellow sputum, rhinorrhea, body aches and subjective fever. Patient states [facility] was not diagnosed with anything and did not have any medications prescribed. Patient states she is been using her albuterol nebulizer machine twice a day and is not been using any other zxvm-kju-jbvgded medications. Patient is requesting an antibiotic, prednisone, ? something for secretions,? and something for her fever. Patient denies any chest pain, shortness of breath, dyspnea on exertion, nausea, vomiting, diarrhea. Patient states she is allergic to Tylenol but is unsure of the reaction.Patient presents awake and alert, very anxious, speaking full sentences and in no acute distress. Her vital signs are reasonably stable and she has a temperature of 102.4. Nonfocal neurological exam. Normal gait. Lungs are clear throughout auscultation. Abdomen is soft, nontender, nondistended. No lower extremity edema. Rapid COVID positive and flu negative.[facility] contacted and the patient was treated with azithromycin 500 mg, prednisone 20 mg, ibuprofen 600 mg. I provided education on all of the patient's prescriptions. I recommend she continue to stay well hydrated, increase nebulizer use to four to six times per day and to follow up with her primary care office this week. I instructed her to present to the emergency department for any new or worsening severe symptoms such as chest pain, severe shortness of breath, altered mental status. The patient was given the opportunity to ask questions and is agreeable to this plan. ..................... ..................... ..................... ..................... ..................... ..................... ............... [facility] Consulted: Asya Prater ..................... ..................... ..................... ..................... ..................... ..................... ............... Disposition: Reny Prater MD [address], [place], [address], [employer] 10/22/2024 20:18:49 11/13/2024 text/html [facility] Nurse Triage Notes (Holli Miller - ROL[place]): Chief Complaints: Asthma, Breathing problems, Dehydration PMH: Hypertension, Rheumatoid Arthritis, Asthma PMH Reviewed at 11/13/2024:26 Allergies Reviewed at 11/13/2024:26 Comments: Increased difficulty breathing x4 days. Patient has a non-productive cough. Difficulty eating and drinking. Reports little water intake. Feels dehydrated. c/o weakness. Finished course of Augmentin and Azithromycin prescribed by hospital aprox 5 days ago. Used Neb treatment this morning. Speaking full sentences without trouble breathing- NE Sales Audit Clerk Organization Information for Bruno Clarke Legal Name: [employer] Address: [address] [place], [place] [address] [address], Composing Machine Operator/Tender: Jared Zapata MD CLIA No.: [id number] Sales Audit Clerk POC Test Results from Bruno [facility] iSTAT Chem8+ (11:35:00) Na: 137 mEq/L K: 4.5 mEq/L Cl: 106 mEq/L iCa: 1.15 mmol/L TCO2: 23 mmol/L Glu: 147 mg/dL BUN: 25 mg/dL Crea: 0.7 mg/dL Hct: 39 % Hb: 13.3 g/dL A Rapid COVID antigen (11:35:03) COVID: - Rapid influenza antigen (11:35:06) Flu: - ..................... ..................... ..................... ..................... ..................... ..................... ............... Sales Audit Clerk Note From Bruno Clarke: Dispatched to the call address for the female with difficulty breathing. Pt states earlier in the month she was diagnosed with Covid and on the was seen in the ED for Covid and pneumonia. She was given steroids and abx. She states she doesn? t have the productive cough anymore, just a dry cough. But she has been having an increased work of breathing and anytime she attempts to eat or drink she goes into a coughing fit. She has been using her nebulizer with minimal effect 3x daily. She denies chest pain, n/v/d, fevers or other flu related symptoms. Pt was found opening door, CAOx4, airway open and patent, breathing slightly labored, lung sounds with slight expiratory wheezing, mucous membranes pink but dry, skin PWD with poor turgor, rapid Covid/flu (-), abd soft non tender/distended, pupils PERRL, -edema/swelling, Afebrile. [facility] consulted. IV (20g R hand) with blood draw, BMP, 1L LR given over 1 hour with reassessment every 15 minutes, 200mg Benzonatate and 40mg Prednisone given PO, DuoNeb with good effect. [facility] updated. Scripts called into preferred pharmacy. All med rights confirmed prior to administration. Red flags discussed. ALL times are approx. ..................... ..................... ..................... ..................... ..................... ..................... ............... [facility] Consulted: Mirta Bustamante ..................... ..................... ..................... ..................... ..................... ..................... ............... Disposition: Fulfilled SEGMD: seen by our service 10/22- dx with covid - given azithro/ guaifenesin ER/prednisone- patient worsened and presented to ED 10/25- - as above Mirta Bustamante MD [address], [place], [address], [facility] - [employer] 11/13/2024 14:53:58 11/15/2024 text/html CRC Nurse Triage Notes (Holli Miller - RN): Reason For Request: Pt is dehydrated and having a hard time breathing Chief Complaints: Dehydration, Breathing problems PMH: Hypertension, Rheumatoid Arthritis, Asthma PMH Reviewed at 11/15/2024 - :09 Allergies Reviewed at 11/15/2024 - :09 Comments: Has not had water for 2 days. Lips and skin are dry. Seen by [facility] 2 days, felt better after IVFs. Difficulty breathing and persistent cough. Patient had a hacking cough, difficulty to speak due to cough. Taking prednisone as prescribed. Took Benzonatate with no relief. Education provided on the response time and the member was advised to monitor reported s/s and seek emergency treatment if needed. ..................... ..................... ..................... ..................... ..................... ..................... ............... Sales Audit Clerk Note From Katheryn Ma: Sent to a [...] to ED multiple times, been evaluated by general education professor and [facility]. Pt states she has been [...] Duo neb administered. Pt reports little improvement. [facility] consulted and pt is advised she needs to be transported to ED for further eval since previous treatments don't appear to be working. Pt initially resists idea of going to ED, but then agrees to transport to [facility] ED. 911 called. Pt calms while waiting for ambulance. Pt care transferred to [facility] Dept. ..................... ..................... ..................... ..................... ..................... ..................... ............... [facility] Consulted: Pricila Du ..................... ..................... ..................... ..................... ..................... ..................... ............... Disposition: Fulfilled Pricila Du MD [address], [place], [address], [facility] [employer] [facility] 11/15/2024 16:37:46 OBGyn Episode No OBEpisode recorded.
--- OUTSIDE RECORDS SUMMARY | 2024-11-16 19:18 | XMS_ITS | Continuity of Care Document ---
Author Organization [employer] [facility], [place] - [facility] Address [address] [place] [phone] Care Team Providers Care Floor Sweeper Name Role Phone HIM CCA OTHER NEHAL GIBBS Primary Care Provider Assessment Encounter Date Assessment Date Assessment LastModified by Organization Details LastModified Time 11/13/2024 11/13/2024 I provided real -time medical direction via phone for this encounter, and was available for additional phone based assistance as needed. I have reviewed and agree with the Assessment and Plan as documented by the Raw Stock Machine Feeder. We discussed the diagnostic uncertainty of home visits and the risk associated with this. In this case the patient and I felt this to be an acceptable and reasonable amount of risk given the benefit of avoiding an ED visit. The patient given the opportunity to ask questions. Advised close f/u with pcp and pulmonary- if develops CP/severe SOB/turning blue/uncontrolle d n/v/d /AMS/ syncope/ hi fever to call 911- verbalized understanding of instruction [email or web address] Not available 11/13/2024 12:16:00 Plan of Treatment Reminders Order Date Submit Date Provider Last Modified By Organization Details Last Modified Time Details Appointments None recorded. Lab rapid SARS CoV 2 Ag, QL IA, respiratory specimen 2024 025 [email or web address] 0 [facility], [address] [place] [address], [phone], 12:15:13 rapid flu (A+B) 2024 025 [email or web address] 0 [facility], [address] [place] [address], [phone], 5 12:15:13 BMP, serum or plasma 2024 025 [email or web address] 0 [facility], [address] [place] [address], [phone], 5 12:15:13 Referral None recorded. Procedures None recorded. Surgeries None recorded. Imaging None recorded. Medication Orders ipratropium 0.5 mg-albutero l 3 mg (2.5 mg base)/3 mL nebulizatio n soln 2024 025 [email or web address] 0 [facility], [address] [place], [address], 5 12:15:13 prednisone 20 mg tablet 2024 025 [email or web address] 0 [facility], [address] [place], [address], 5 12:15:13 prednisone 20 mg tablet 2024 025 [facility], [address] [place], [address], 5 12:16:10 benzonatate 100 mg capsule 2024 025 [email or web address] 0 [facility], [address] [place], [address], 5 12:15:13 benzonatate 200 mg capsule 2024 025 [email or web address] 0 [facility], [address] [place], [address], 5 13:14:31 ipratropium 0.5 mg-albutero l 3 mg (2.5 mg base)/3 mL nebulizatio n soln 2024 025 [facility], [address] [place], [address], 5 12:16:07 lactated Ringers intravenous solution 2024 025 [email or web address] 0 [facility], [address] [facility] [place], [place], [address], 5 12:15:13 Patient TargetsNo targets recorded. Patient InstructionsNo instructions recorded. Reason for Referral None Reported. Results Created Date Observation Date Name Description Value Unit Range Abnormal Flag Note LastModifiedBy Organization Detail LastModifiedTime 11/13/1911/13/2024 BMP, serum or plasm a BUN 25 Not Available Main - [facility] [address] [place] [address], [phone], 11/13/2024 11:39:21 11/13/19 25 11/13/2024 rapid flu (A+B) Flu negati ve Not Available Main - [facility] [address] [place] [address], [phone], 11/13/2024 11:39:31 11/13/19 25 11/13/2024 rapid SARS CoV 2 Ag, QL IA, respi rator y speci men rapid SARS CoV 2 Ag, QL IA, respiratory specimen negati ve Not Available Main - [facility] [address] [place] [address], [phone], 11/13/2024 11:39:30 Result Notes None recorded. Medical [...] 5 87 /min 96 % 96 % 35493.4 g 98.9 [degF] 18 /min 158 mm[Hg] 90 mm[Hg] Not Available [facility] - production 11:13:58 Social History None recorded. Functional Status None recorded. Mental Status None recorded. Family History Nothing Reported. Medical History No medical history recorded. Gynecological HistoryNo gynecological history recorded. Obstetrics History GPAL:G 0 P 0 0 0 0 Past Encounters Encounter ID Performer Location Encounter Start Date Encounter Closed Date Diagnosis/Indication Diagnosis SNOMED-CT Code Diagnosis ICD10 Code Diagnosis Note [id number] Asya Prater MD Main - [address] [address] 10/22/2024 16:23:16 10/23/2024 00:19:26 Dyspnea 867785244 R06.00 As noted, we were called to see this patient regarding concerns of cough and dyspnea. 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 [...] to consciousn ess, chest pain, worsened breathing. [id number] Mirta Bustamante MD Main - [address] [address] 11/13/2024 11:13:56 11/13/2024 21:25:11 Exacerbation of moderate persistent asthma 094070483 J45.41 s/p viral illness- no fever- no [...] that is covered/re d flags reviewed Dehydration 19027696 E86 .0 pat. clinically dry / BUN 25- felt better after ivf Health Concerns Section Related Observation LastModified by Organization Detai ls LastModified Time None Recorded Concern Status LastModified by Organization Details LastModified Time None Recorded Payers Encounter Date Sequence Insurance Name Policy Number Policy Marks Covered Member ID Marks Member ID Guarantor Name 11/13/2024 1 [facility] - DOS ON OR AFTER 2023 - DUAL ELIGIBLE - INTERMEDIATE OPTIONS AND ONE CARE (MEDICARE REPLACEMENT/ADV ANTAGE - HMO) Cherry Cool [id number] Cherry Cool Notes Date Note Type Note Provider Name and Address Organization Details Recorded Time 11/13/2024 text/html CRC Nurse Triage Notes (Holli Miller - RN): Chief Complaints: Asthma, Breathing problems, Dehydration PMH: Hypertension, Rheumatoid Arthritis, Asthma PMH Reviewed at 11/13/2024 - 09:26 Allergies Reviewed at 11/13/2024 - 09:26 Comments: Increased difficulty breathing x4 days. Patient has a non-productive cough. Difficulty eating and drinking. Reports little water intake. Feels dehydrated. c/o weakness. Finished course of Augmentin and Azithromycin prescribed by hospital aprox 5 days ago. Used Neb treatment this morning. Speaking full sentences without trouble breathing- NE Raw Stock Machine Feeder Organization Information for Bruno Clarke Legal Name: [facility] Address: [address] [place] [address], [place] [address], Patient Access Manager: Jared CHURCH No.: [id number] Raw Stock Machine Feeder POC Test Results from Bruno Clarke - ALS iSTAT Chem8+ (11:35:00) Na: 137 mEq/L K: 4.5 mEq/L Cl: 106 mEq/L iCa: 1.15 mmol/L TCO2: 23 mmol/L Glu: 147 mg/dL BUN: 25 mg/dL Crea: 0.7 mg/dL Hct: 39 % Hb: 13.3 g/dL A Rapid COVID antigen (11:35:03) COVID: - Rapid influenza antigen (11:35:06) Flu: - .................. .................. .................. .................. .................. .................. .................. ............... Raw Stock Machine Feeder Note From Bruno Clarke: Dispatched to the [...] soft non tender/distended, pupils PERRL, -edema/swelling, Afebrile. [facility] consulted. IV (20g R hand) with blood draw, BMP, 1L LR given over 1 hour with reassessment every 15 minutes, 200mg Benzonatate and 40mg Prednisone given PO, DuoNeb with good effect. C updated. Scripts called into preferred pharmacy. All med rights confirmed prior to administration. Red flags discussed. ALL times are approx. .................. .................. .................. .................. .................. .................. .................. ............... [facility] Consulted: Mirta Bustamante .................. .................. .................. .................. .................. .................. .................. ............... Disposition: Fulfilled SEGMD: seen by our service 10/22- dx with covid - given azithro/ guaifenesin ER/prednisone- patient worsened and presented to ED 10/25- - as above Mirta Bustamante MD [address] [facility],[address], [place], [address], [facility] - [employer] 11/13/2024 14:53:58 OBGyn Episode No OBEpisode recorded.
--- OUTSIDE RECORDS SUMMARY | 2024-11-16 19:18 | XMS_ITS | Continuity of Care Document ---
Author Organization [facility] [employer] [place], [place] - [facility] Address [address] [place] [phone] Care Team Providers Care Finishing Range Feeder Name Role Phone HIM CCA OTHER NEHAL GIBBS Primary Care Provider [phone] Assessment No assessment recorded. Plan of Treatment Reminders Order Date Submit Date Provider Last Modified By Organization Details Last Modified Time Details Appointments None recorded. Lab rapid SARS CoV 2 Ag, QL IA, respiratory specimen 2024 025 [facility], [address] [place] [address], [phone], 5 20:47:11 rapid flu (A+B) 2024 025 [facility], [address] [place] [address], [phone], 5 20:46:53 Referral None recorded. Procedures None recorded. Surgeries None recorded. Imaging None recorded. Medication Orders ibuprofen 200 mg tablet 2024 025 [facility], [address] [place], [address], 5 16:37:55 prednisone 20 mg tablet 2024 025 [facility], [address] [place], [address], 5 16:37:55 prednisone 20 mg tablet 2024 025 [facility], [address] [place], [address], 5 16:39:40 azithromyci n 250 mg tablet 2024 025 [facility], [address] [place], [address], 5 16:37:55 azithromyci n 250 mg tablet 2024 025 [facility], [address] [place], [address], 5 16:39:37 guaifenesin ER 600 mg tablet, extended release 12 hr 2024 025 [facility], [address] [place], [address], 5 16:39:42 Patient TargetsNo targets recorded. Patient InstructionsNo instructions recorded. Reason for Referral None Reported. Results Created Date Observation Date Name Description Value Unit Range Abnormal Flag Note LastModifiedBy Organization Detail LastModifiedTime Result Notes None recorded. Medical Equipment None [...] Not available 05/25/2024 5640 RxNorm Not Available [facility] - production 5 12:09:30 Medications Name Sig [...] Updated DateTime 5 97 % 97 % 12772.6 4 g 108 /min 162.56 cm 18 /min 102.4 [degF] 133 mm[Hg] 84 mm[Hg] Not Available [facility] - production 5 16:23:19 Social History None recorded. Functional Status None recorded. Mental Status None recorded. Family History Nothing Reported. Medical History No medical history recorded. Gynecological HistoryNo gynecological history recorded. Obstetrics History GPAL:G 0 P 0 0 0 0 Past Encounters Encounter ID Performer Location Encounter Start Date Encounter Closed Date Diagnosis/Indication Diagnosis SNOMED-CT Code Diagnosis ICD10 Code Diagnosis Note [id number] Asya Prater MD Main - [facility] [address] [place] [phone] 10/22/2024 16:23:16 10/23/2024 00:19:26 Dyspnea [id number] R06.00 As noted, we were called to see this patient regarding concerns of cough and dyspnea. 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 [...] to consciousn ess, chest pain, worsened breathing. Health Concerns Section Related Observation LastModified by Organization Detai ls LastModified Time None Recorded Concern Status LastModified by Organization Details LastModified Time None Recorded Payers Encounter Date Sequence Insurance Name Policy Number Policy Marks Covered Member ID Marks Member ID Guarantor Name 10/22/2024 1 [facility] - DOS ON OR AFTER 2023 - DUAL ELIGIBLE - ASSISTED OPTIONS AND ONE CARE (MEDICARE REPLACEMENT/ADV ANTAGE - HMO) Cherry Cool [id number] [employer] Silvina Notes Date Note Type Note Provider Name and Address Organization Details Recorded Time 10/22/2024 text/html CRC Nurse Triage Notes (Watson Gazra - RN): Reason For Request: Pt reporting [...] Chief Complaints: Cough, Fever/chillsPMH: Hypertension, Rheumatoid ArthritisComments: Assistant Director Of Security verified the Pt.'s name//address and phone number. [...] S/S not improving - Wellness visit requested. User Experience Developer Organization Information for [employer] Legal Name: [facility] Address: [address] [place] [address], Supervisor Stripping: Joesph Graham MD [place] No.: [id number] User Experience Developer POC Test Results from [email or web address] Rapid COVID antigen (17:42:26) COVID: + Rapid influenza antigen (17:42:28) Flu: - .................... .................... .................... .................... .................... .................... .................... . User Experience Developer Note From Kieran Murrieta: This 69-year-old female with a history including but not limited to hypertension, COPD and rheumatoid arthritis requested a visit today to address one week of cough producing yellow sputum, rhinorrhea, body aches and subjective fever. Patient states she went to [place] ED last night was not diagnosed with anything and did not have any medications prescribed. Patient states she is been using her albuterol nebulizer machine twice a day and is not been using any other [id number]-cyo-nlchpdv medications. Patient is requesting an antibiotic, prednisone, [...] extremity edema. Rapid COVID positive and flu negative.[facility] contacted and the patient was treated [...] questions and is agreeable to this plan. .................... .................... .................... .................... .................... .................... .................... . [facility] Consulted: Asya Prater .................... .................... .................... .................... .................... .................... .................... . Disposition: Fulfilled Asya Prater MD [address] [place] [address],[address], [place], [phone], [email or web address] [facility] 10/22/2024 20:18:49 OBGyn Episode No OBEpisode recorded.
== END 2024-11-16 16:00 | disposition home or self-care (01) ==
PROVIDERS: PCP Internal Medicine; Visit Provider Internal Medicine
DX: J45.909 Unspecified asthma, uncomplicated (principal); G47.33 Obstructive sleep apnea (adult) (pediatric); F41.1 Generalized anxiety disorder; R05.8 Other specified cough
CPT/HCPCS: 99213

== ENCOUNTER → 2024-11-16 15:35 | Outpatient (BNVA) | payer OTHER, SELFPAY | PROVIDERS: PCP Internal Medicine; Visit Provider Internal Medicine | DX: J45.909 Unspecified asthma, uncomplicated (principal); G47.33 Obstructive sleep apnea (adult) (pediatric); F41.1 Generalized anxiety disorder; R05.8 Other specified cough | CPT/HCPCS: 99212 ==

== ENCOUNTER 2024-12-11 07:33 | Day surgery (SDC) | payer OTHER, SELFPAY ==
[2024-12-11 08:07] VITALS: BMI 36.2
--- NOTE | 2024-12-11 08:12 | P.OP_ITS ---
Operative Note Operative Note Date of Service: 12/11/24 Narrative: Operative Note Preop diagnosis: 1. Right middle finger Trigger finger Postop diagnosis: 1. Right middle finger Trigger finger 2. 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 Right middle finger A1 good release 2. Right middle finger PIP joint closed manipulation under local anesthesia Surgeon: Marianna Parr MD Dietary Manager: None Anesthesia: local block using 1% lidocaine with epinephrine Findings: No locking or catching after A1 good release EBL: Less than 5 mL Tourniquet time: None Specimens: None Complications: None Disposition: Brought to recovery room in stable condition Plan: Follow-up for 10-14 days for wound check and suture removal I also instructed the patient on range of motion exercises to work on maintaining the extension and preventing a recurrence of the PIP joint flexion contracture. Indications: The patient is 69 years old, with a right middle finger trigger finger that has been unresponsive to nonoperative management. The risks and benefits of operative treatment including but not limited to risk of damage to blood vessels, nerves, tendons, infection, persistent pain, persistent symptoms, recurrence or possible need for additional surgery were discussed with the patient and the patient wishes to proceed with surgery. Procedure: Once consent was obtained a local block was performed in the preop area using a combination of 1% lidocaine with epinephrine. The patient was then brought back to the operating suite and placed on the operative table in supine position. The right upper extremity was prepped and draped in a standard surgical fashion. Once assured that we had a good block, a 1.5 cm oblique incision was made centered over the A1 good of the right middle finger . The incision was made through the skin to the subcutaneous tissues using a #15 blade. Careful dissection was made down to the level of the A1 good using tenotomy scissors, with care being taken to protect the nearby neurovascular structures. A longitudinal incision was made in the A1 good 1st using a #15 blade, then using tenotomy scissors under direct visualization. The A1 good was noted to be thickened. Following our A1 good release, we no longer saw any locking or catching of the digit with flexion and extension. Once satisfied with our A1 good release the wound was copiously irrigated with normal saline and hemostasis was obtained with a brief period of local pressure. The skin edges were reapproximated with some 5.0 nylon suture material and a sterile dressing was applied. The patient was also noted to have an approximately 25 degree flexion contracture of the PIP joint of the right middle finger. I performed a gentle closed manipulation while her finger was anesthetized and improved the flexion contracture to about 3 degrees. She tolerated that well. The patient appears to have tolerated the procedure well and with no complications. All digits were well vascularized at the conclusion of the case.
--- NOTE | 2024-12-11 08:12 | MHC.SHP ---
Pre-Procedural Eval Section A - 24 Hr Update-Section A only Date of Service: 12/11/24 The patient is an INPATIENT: No Changes since office visit: No Cold of Flu in the past 2 weeks, No New Medical Problems, No Changes in Medication and No Patient answered all questions The patient has been examined within 24 hours of the surgical procedure. The History & Physical has been completed within 30 days and I have reviewed it.: Yes Section B - Complete if H&P > 30 days Chief Complaint: Trigger finger, right middle finger Allergies: Allergies Allergy/AdvReac Type Severity Reaction Status Date / Time acetaminophen [From Tylenol] Allergy Severe Shortness Verified 11/16/24 15:58 of Breath ibuprofen Allergy Severe shortness Verified 11/16/24 15:58 of breath canned food Allergy Intermediate Shortness Uncoded 11/16/24 15:58 of Breath Plan Diagnosis/Plan: Unchanged I have reviewed the history and physical and performed a pertinent physical examination on my patient. No changes have occurred unless specified. Time Spent With Patient Time: Total time managing care of this patient today ____ minutes.
[2024-12-11 08:13] VITALS: BP 136/86; PULSE 85; RESP 16; TEMP 36.1; O2SAT 98
[2024-12-11 09:31] VITALS: BP 110/77; PULSE 84; RESP 20; O2SAT 100
--- NOTE | 2024-12-11 10:52 | PC.NURSE ---
Discharge instructions reviewed fully with patient more than once. Patient was asked to refrain from speaking on her telephone to concentrate while discharge instructions were being given as she was very distracted. Patient verbalized understanding of all discharge instructions and aware to call surgeon's office to verify f/u appt.
== END 2024-12-11 10:10 | disposition home or self-care (01) ==
PROVIDERS: PCP Internal Medicine; Visit Provider Orthopaedic Surgery
PROC: (CPT 26055; principal; 2024-12-11 07:30)
DX: M65.331 Trigger finger, right middle finger (principal); M21.241 Flexion deformity, right finger joints; R20.0 Anesthesia of skin; M79.644 Pain in right finger(s); G89.4 Chronic pain syndrome; M79.7 Fibromyalgia; M06.9 Rheumatoid arthritis, unspecified; I10 Essential (primary) hypertension; J45.909 Unspecified asthma, uncomplicated; F03.A0 Unspecified dementia, mild, without behavioral disturbance, psychotic disturbance, mood disturbance, and anxiety; R41.3 Other amnesia; Z98.890 Other specified postprocedural states; Z88.1 Allergy status to other antibiotic agents; Z88.8 Allergy status to other drugs, medicaments and biological substances; Z56.0 Unemployment, unspecified
CPT/HCPCS: 26055; 26340; J0171; J2003; J2004

== ENCOUNTER → 2024-12-11 07:33 | Outpatient (BNV) | payer OTHER, SELFPAY | PROVIDERS: PCP Internal Medicine; Visit Provider Orthopaedic Surgery | DX: M65.331 Trigger finger, right middle finger (principal); M24.541 Contracture, right hand | CPT/HCPCS: 26055 ==

== ENCOUNTER 2024-12-27 10:15 | Outpatient (AMB) | payer OTHER, SELFPAY ==
--- NOTE | 2024-12-27 10:23 | MHC.OFFVIS ---
Vital Signs 12/27/24 10:26 Height 5 ft 1 in Weight 194 lb BMI 36.7 Intake Visit Reasons: PO RT MF trigger 12/11/24 AR Intake Note: Cherry is a 69 year old right hand dominant female who presents today post operatively s/p right middle trigger finger and right middle finger PIP joint flexion contracture DOS: 12/11/24 w/ Dr Parr. Patient reports that she is doing well. The incision appears a bit yellow in color but does not look like it is draining or weeping. Sutures removed and Steri strips applied Allergies acetaminophen [From Tylenol] Allergy (Severe, Verified 11/16/24 15:58) Shortness of Breath ibuprofen Allergy (Severe, Verified 11/16/24 15:58) shortness of breath canned food Allergy (Intermediate, Uncoded 11/16/24 15:58) Shortness of Breath HPI HPI PO RT MF trigger 12/11/24 AR: Details: Cherry is a 69 year old right hand dominant female who presents today post operatively s/p right middle trigger finger trigger release DOS: 12/11/24 w/ Dr Parr. Patient reports that she is doing well. Denies any ongoing locking or catching The incision appears a bit yellow in color but does not look like it is draining or weeping. Sutures removed and Steri strips applied PFSH Medical History Cognitive disorder Hand numbness GERD (gastroesophageal reflux disease) Cold intolerance Rheumatoid arthritis Lumbar spinal stenosis RAÚL (obstructive sleep apnea) Trigger finger Sleep disorder breathing Latent tuberculosis Cough Asthma Chronic pain syndrome Myofascial muscle pain Osteoarthritis Fibromyalgia HTN (hypertension) Anxiety Surgical History Hx of ovarian cystectomy Hx of cervical discectomy History of lumbar surgery Family History Father Diabetes Mother Acute arthritis Other Mental health disorder Social History Household Members: None Housing: Apartment Are you a primary director of career services to a significant other at home: No Do you presently have visiting nurse or other home services: 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 Neuro: Normal sensation of the tips of all digits of the right hand at this time Vascular: Cap refill brisk Pain: No tenderness to palpation about the incision site over the A1 good of the right middle finger ROM: Patient is able to make a closed fist and extend all digits of the right hand fully and without difficulty Skin: Well approximated and well healing incision site noted over the A1 good of the right middle finger General: No ecchymosis, erythema, or evidence of infection. Psych: Appears grossly normal Affect normal Attitude cooperative Assessment & Plan Assessment & Plan (1) Trigger finger, right middle finger: Code(s): M65.331 - Trigger finger, right middle finger Category: Medical Plan 1. Status post right middle finger trigger release DOS 12/11/2024 Patient appears to be recovering well postoperatively Patient was educated about the typical recovery course Patient is educated she will require no further acute follow-up with us, as she has recovered very well Patient was amenable to this plan Patient will follow-up as needed with any acute concerns Coding Level of Care Code Global (44076) Diagnoses Trigger finger, right middle finger M65.331
[2024-12-27 10:26] VITALS: BMI 36.7
--- OUTSIDE RECORDS SUMMARY | 2024-12-27 11:45 | XMS_ITS | Continuity of Care Document ---
Author Organization [employer] [facility], [place] [facility] Address [address] [place] [address] Care Team Providers Care Gear Milling Machine Set Up Operator Name Role Phone HIM CCA OTHER BERNIECAROLAdrienne Primary Care Provider [phone] Assessment No assessment recorded. Plan of Treatment [...] times a day by nebulizatio n route. active Not Available Not Available No t Available albuterol sulfate 2.5 mg/3 mL (0.083 %) solution for nebulization active Not Available Not Available Not Available trazodone 50 mg tablet active Not Available Not Available No t Available cetirizine 10 mg tablet active Not Available Not Available Not Available azithromycin 250 mg tablet 1 tablet daily x 4 days 2024 active Not Available Not Available Not Avai lable benzonatate 200 mg capsule active Not Available Not Available Not Available ondansetron HCl 4 mg tablet active Not Available Not Available Not Available prednisone 20 mg tablet Take 2 tablets every day by oral route after meal(s) for 4 days. 2024 active Not Available Not Available [...] t Available benzonatate 100 mg capsule Take 100 mg every 8 hours by oral route as needed for 5 days, for cough. 2024 active Not Available Not Available [...] active Not Available Not Available Not Available codeine 10 mg-guaifenes in 100 mg/5 mL oral liquid active Not Available Not Available Not Available [...] Arterial blood by Pulse oximetry Body temperature Respiratory rate Heart rate Systolic blood pressure Diastolic blood pressure Provider Name and Address Organization Details Last Updated DateTime 5 98 % 98 % 98.9 [degF] 16 /min 74 /min 150 mm[Hg] 84 mm[Hg] Not Available [facility] - production 5 13:10:57 Social History None recorded. Functional Status None recorded. Mental Status None recorded. Family History Nothing Reported. Medical History No medical history recorded. Gynecological HistoryNo gynecological history recorded. Obstetrics History GPAL:G 0 P 0 0 0 0 Past Encounters Encounter ID Performer Location Encounter Start Date Encounter Closed Date Diagnosis/Indication Diagnosis SNOMED-CT Code Diagnosis ICD10 Code Diagnosis Note [id number] Jerman Peck MD [facility] [address] [place] [phone] 12/17/2024 12:55:10 12/18/2024 09:46:50 Exacerbation of moderate persistent asthma 650960337 J45.41 COVID/flu negative. IV Methylpred nisone x1 now (will given 62.5mg, which is 1ml of solution) which is equivalent to slightly under 80mg of Prednisone ) as she prefers IV and states Methylpred nisone has helped in the past; for remainder will give 40mg daily. Has duoneb treatment at home. Will rx Z-pack as well as Tessalon perles. Discussed red flag signs to present for higher level of care. [id number] Aida Ramos MD [facility] - [facility] [address] [place] [phone] 12/18/2024 13:10:54 12/18/2024 21:29:57 Dizziness 132791516 R42 Evaluation in the field was performed by my finish molder colleague, as noted above, I provided real-time direction and supervisio n for this visit. 69yo F endorsing fall with possible LOC last night iso new onset dizziness. Endorsing intermitte nt focal neurologic sx include L hand numbness, L sided weakness. on finish molder eval VS unremarkab le, exam without focal neuro deficits or signs of trauma. NIHSS 0. Recommend ED eval given need to work up new neurologic sx and r/o CVA and also for PT evaluation given fall 2/2 dizziness. Expect called. PCP: Please f/up after ED visit Health Concerns Section Related Observation LastModified by Organization Detai ls LastModified Time None Recorded Concern Status LastModified by Organization Details LastModified Time None Recorded Payers Encounter Date Sequence Insurance Name Policy Number Policy Marks Covered Member ID Marks Member ID Guarantor Name 12/18/2024 1 [facility] - DOS ON OR AFTER 2023 - DUAL ELIGIBLE - [facility] OPTIONS AND ONE CARE (MEDICARE REPLACEMENT/ADV ANTAGE - HMO) Cherry Cool [id number] Cherry Cool Notes Date Note Type Note Provider Name and Address Organization Details Recorded Time 12/18/2024 text/html [facility] Nurse Triage Notes (Holli Miller): Reason For Request: Patient thinks she may of had or is having a stroke. She got dizzy and fell. Patient Reports: Sudden onset -unilateral weakness/gait disturbance; Fall with head strike and altered LOC Denies: Worst Headache of life New onset of vision loss New onset of Slurred speech or difficulty finding words Sudden Mental status changes Head pain with fever chills and neck pain Seizure activity Chief Complaints: Dizziness PMH: Hypertension, Rheumatoid Arthritis, Asthma, Fibromyalgia PMH Reviewed at 12/18/2024 Allergies Reviewed at 12/18/2024 Comments: Patient reports dizzy started during the night. Unsteady. Fell during the night. Patient reports LOC. Denies chest pain or shortness of breath. Feels mouth dryness. Left hand numbness/tingling. Patient states she feels drowsy. Reports left sided weakness. Denies facial droop. patient does not want to go to the ER now after recommendation. Education provided but patient declined multiple times. Speech is clear. Answering questions appropriately. Education provided on the response time and the member was advised to monitor reported s/s and seek emergency treatment if needed. .................. .................. .................. .................. .................. .................. .................. ............... Director Safety Council Note From Bruno Clarke: Dispatched to the call address for the female with dizziness and weakness. Pt states yesterday she was very dizzy and weak and had left sided head/arm pain/numbness. She states she fell with with possible LOC, she denies head strike at this time. Pt states she does not have the left sided issues but she is still dizzy and weak, feeling unsteady on her feet. Pt states she ate a lot of sugar yesterday and thought maybe that was why she was feeling off. Pt denies any chest pain or difficulty breathing at this time. Pt was found sitting at kitchen table, CAOx4, airway open and patent, breathing non labored, able to speak in full sentences, -JVD, -HEENT, skin PWD with good turgor, mucous membranes pink and moist, abd soft non tender/distended, pupils PERRL, lungs CTA, afebrile, +CMSx4, -edema/swelling. -spinal stepoff/tenderness , no obvious signs of trauma noted. Blood glucose 147. [facility] consulted. Pt was advised to seek a further work up in the ED. Pt agreed but stated her daughter was on her way and she would prefer she take her to the ED. Red flags discussed. ALL times are approx. .................. .................. .................. .................. .................. .................. .................. ............... [facility] Consulted: Aida Ramos .................. .................. .................. .................. .................. .................. .................. ............... Disposition: Fulfilled Aida Ramos MD [address] [facility],[address], [place], [address], [facility] - [employer] 12/18/2024 13:58:24 OBGyn Episode No OBEpisode recorded.
--- OUTSIDE RECORDS SUMMARY | 2024-12-27 11:46 | XMS_ITS | Continuity of Care Document ---
Author Organization [facility] [employer] [place], [place] - [facility] Address [address] [place] [phone] Care Team Providers Care Senior Copywriter Name Role Phone HIM CCA OTHER NEHAL GIBBS Primary Care Provider [phone] Assessment No assessment recorded. Plan of Treatment Reminders Order Date Submit Date Provider Last Modified By Organization Details Last Modified Time Details Appointments None recorded. Lab rapid SARS CoV 2 Ag, QL IA, respiratory specimen 2024 025 [facility], [address] [place] [address], [id number], 5 17:17:28 rapid flu (A+B) 2024 025 [facility], [address] [place] [address], [phone], 5 17:17:29 Referral None recorded. Procedures None recorded. Surgeries None recorded. Imaging None recorded. Medication Orders prednisone 20 mg tablet 2024 025 [facility], [address] [place], [address], 5 13:15:57 methylpredn isolone sod succ (PF) 125 mg/2 mL solution for injection 2024 025 [email or web address], [address] [place], [address], 5 13:15:25 azithromyci n 500 mg tablet 2024 025 [email or web address], [address] [place], [address], 5 13:15:25 azithromyci n 250 mg tablet 2024 025 [facility], [address] [place], [address], 5 13:15:55 benzonatate 100 mg capsule 2024 025 [facility], [address] [place], [address], 5 13:15:52 Patient TargetsNo targets recorded. Patient InstructionsNo instructions [...] Not Available Vitals Date Recorded Heart rate Respiratory rate Oxygen saturation Oxygen saturation in Arterial blood by Pulse oximetry Body temperature Systolic blood pressure Diastolic blood pressure Provider Name and Address Organization Details Last Updated DateTime 5 84 /min 18 /min 96 % 96 % 97.9 [degF] 128 mm[Hg] 79 mm[Hg] Not Available [employer] [employer] - production 12:55:12 Social History None recorded. Functional Status None recorded. Mental Status None recorded. Family History Nothing Reported. Medical History No medical history recorded. Gynecological HistoryNo gynecological history recorded. Obstetrics History GPAL:G 0 P 0 0 0 0 Past Encounters Encounter ID Performer Location Encounter Start Date Encounter Closed Date Diagnosis/Indication Diagnosis SNOMED-CT Code Diagnosis ICD10 Code Diagnosis Note [id number] eJrman Peck MD [facility] [address] [place] [phone] 12/17/2024 12:55:10 12/18/2024 09:46:50 Exacerbation of moderate persistent asthma [id number] J45.41 COVID/flu negative. IV Methylpred nisone x1 [...] to present for higher level of care. Health Concerns Section Related Observation LastModified by Organization Detai ls LastModified Time None Recorded Concern Status LastModified by Organization Details LastModified Time None Recorded Payers Encounter Date Sequence Insurance Name Policy Number Policy Marks Covered Member ID Marks Member ID Guarantor Name 12/17/2024 1 [facility] - DOS ON OR AFTER 2023 - DUAL ELIGIBLE - [facility] OPTIONS AND ONE CARE (MEDICARE REPLACEMENT/ADV ANTAGE - HMO) Cherry Cool [id number] Cherry Cool Notes Date Note Type Note Provider Name and Address Organization Details Recorded Time 12/17/2024 text/html [facility] Nurse Triage Notes (Watson Garza): Reason For Request: asthma Patient Reports: Increased work of breathing/labored ? with or without fever; Needs to sleep sitting up, can? t catch breath; Lower extremity swelling; Sputum increase ; Cough; Shortness of breath with exertion; Diaphoretic/Sweating; Describes as ? c rushing? ; Shortness of Breath Denies: Unable to speak in full sentences without distress Discoloration of skin -cyanosis Shortness of breath in setting of confusion Cough, fever greater than 2 days History of asthma, increased use of inhaler COPD History of Heart Attack, in the setting of active chest pain Active Chest pain, radiates to neck jaw and or arm Sudden onset of nausea/Vomiting and shortness of breath. Unable to speak in full sentences without distress Chief Complaints: Breathing Problems PMH: Hypertension, Rheumatoid Arthritis, Asthma PMH Reviewed at 12/17/2024 10:48 Allergies Reviewed at 12/17/2024 - 10:48 Comments: Embedded Systems Developer verified the Pt.'s name//address and phone number. Education provided on the response time and the Pt. was advised to monitor reported s/s and seek emergency treatment if needed. Pt reports feeling unwell with a cough/cold and congestion - SOB - Breathing is full sentences at this time - Wheezing noted - with chest heaviness/chest pain -Diaphoretic - /10 pain - Crushing - Pain when taking a deep breath - Decreased PO intake - Denies fever - Denies Nausea and vomiting - S/S started yesterday - Declined ER treatment - Concerned expressed - Hx Bronchial asthma Marketing Professional Organization Information for [facility] Legal Name: [facility] Address: [address] [place] [address], [place] [address], Monotype Machinist: oJesph Graham MD [facility] No.: [id number] Marketing Professional POC Test Results from [facility] Rapid influenza antigen (12:53:42) Flu: - Rapid COVID antigen (12:53:42) COVID: - ....................... ....................... ....................... ....................... ....................... ....................... ... Marketing Professional Note From JanesmissyKieran: This 69-year-old female with a history including but not limited to asthma, HTN, rheumatoid arthritis requested a visit today to address two days of cough producing white sputum and dyspnea on exertion. Patient denies any shortness of breath at rest, fevers, nausea, vomiting, diarrhea. Patient uses duo nebs three times a day and states she does not use any other inhalers including a daily inhaler. The patient is requesting IV steroids because she says that works better and the oral steroids are not usually enough. Patient presents awake and alert, in no acute distress and speaking full sentences. Her vital signs are reasonably stable and she is afebrile. Nonfocal neurological exam. Normal gait. Normal oropharynx exam. Diffuse expiratory wheezing. Abdomen is soft, nontender, nondistended. No lower extremity edema. Rapid COVID include testing are both negative. I treated this patient with a duo neb which resolved the wheezing, azithromycin 500 mg and methylprednisolone 62 mg IVP. Patient endorses improved breathing and overall feeling better post treatment. We discussed the diagnostic uncertainty of home visits and the risk associated with this. In this case, the patient and I felt this to be an acceptable and reasonable amount of risk given the benefit of avoiding an ED visit. I provided education on the patient's prescriptions as well as the importance of following up with her primary care physician this week. I recommend she stay well hydrated and present to the emergency department for any new or worsening severe symptoms such as severe chest pain, severe shortness of breath at rest, high fever, altered mental status. The patient was given the opportunity to ask questions and is agreeable to this plan. [facility] Lab Orders: rapid SARS CoV 2 Ag, QL IA, respiratory specimen: Performed rapid flu (A+B): Performed [facility] Medication Orders: methylprednisolone sod succ (PF) 125 mg/2 mL solution for injection: Administered Comment: 62 mg IVP azithromycin 500 mg tablet: Administered ....................... ....................... ....................... ....................... ....................... ....................... ... [facility] Consulted: Yefri Peck................... ....................... ....................... ....................... ....................... ....................... ... Disposition: Fulfilled Jerman Peck MD [address] [place] [address],[address], [place], [address], [facility] 12/17/2024 14:52:16 OBGyn Episode No OBEpisode recorded.
--- OUTSIDE RECORDS SUMMARY | 2024-12-27 11:46 | XMS_ITS | Data Portability ---
Author Organization [employer] [facility] - [place] Address [address] [place] [address] Care Team Providers Care Ctrs Name Role Phone HIM CCA OTHER BERNIENEHAL Primary Care Provider Assessment Encounter Date Assessment Date Assessment LastModified by Organization Details LastModified Time 11/13/2024 11/13/2024 I provided real -time medical direction via phone for this encounter, and was available for additional phone based assistance as needed. I have reviewed and agree with the Assessment and Plan as documented by the Manager Reporting. We discussed the diagnostic uncertainty of home [...] to call 911- verbalized understanding of instruction Not available 11/13/2024 12:16:00 11/15/2024 11/15/2024 I provided real -time medical direction via phone for this encounter and was available for additional phone-based assistance as needed. I have reviewed and agree with the Assessment and Plan as documented by the Manager Reporting. Patient given the opportunity to ask questions. 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 She feels like her feet are swelling. Overall feels significantly unwell. Per senior clinician on the scene, patient with mild to moderate distress. Increased work of breathing. Vitals as above. Wheezing auscultated per senior clinician on the scene. Impression: Asthma with acute [...] workup and evaluation. Expect call made for [facility] ED. Allergies: Reviewed [place] [id number] Not available 11/15/2024 16:37:30 Plan of Treatment Reminders Order Date Submit Date Provider Last Modified By Organization Details Last Modified Time Details Appointments None recorded. Lab rapid SARS CoV 2 Ag, QL IA, respiratory specimen 2024 025 [facility], [address] [place] [address], [id number], 17:17:28 rapid flu (A+B) 2024 025 [facility], [address] [place] [address], [id number], 17:17:29 rapid SARS CoV 2 Ag, QL IA, respiratory specimen 2024 025 [email or web address], [address], 12:15:13 rapid flu (A+B) 2024 025 [email or web address] 0 [facility], [address] [place] [address], [address], 5 12:15:13 BMP, serum or plasma 2024 025 [email or web address] 0 [facility], [address] [place] [address], [address], 5 12:15:13 rapid SARS CoV 2 Ag, QL IA, respiratory specimen 2024 025 [facility], [address] [place] [address], [id number], 5 20:47:11 rapid flu (A+B) 2024 025 [facility], [address] [place] [address], [id number], 5 20:46:53 Referral None recorded. Procedures None recorded. Surgeries None recorded. Imaging None recorded. Medication Orders prednisone 20 mg tablet 2024 025 [facility], [address] [place], [address], 5 13:15:57 methylpredn isolone sod succ (PF) 125 mg/2 mL solution for injection 2024 025 [email or web address] [facility], [address] [place], [address], 5 13:15:25 azithromyci n 500 mg tablet 2024 025 [email or web address] [facility], [address] [place], [address], 5 13:15:25 azithromyci n 250 mg tablet 2024 025 [facility], [address] [place], [address], 5 13:15:55 benzonatate 100 mg capsule 2024 025 [facility], [address] [place], [address], 5 13:15:52 ipratropium 0.5 mg-albutero l 3 mg (2.5 mg base)/3 mL nebulizatio n soln 2024 025 [email or web address] 0 [facility], [address] [place], [address], 5 12:15:13 prednisone 20 mg tablet 2024 025 [email or web address] 0 [facility], [address] [place], [address], 5 12:15:13 prednisone 20 mg tablet 2024 025 [facility], [address] [place], [address], 5 12:16:10 benzonatate 100 mg capsule 2024 025 [email or web address] 0 [facility], [address] [place], [address], 5 12:15:13 benzonatate 200 mg capsule 2024 025 [email or web address] 0 [facility], [address] [place], [address], 5 13:14:31 ipratropium 0.5 mg-albutero l 3 mg (2.5 mg base)/3 mL nebulizatio n soln 2024 025 [facility], [address] [place], [address], 5 12:16:07 lactated Ringers intravenous solution 2024 025 [email or web address] 0 [facility], [address] [place], [address], 5 12:15:13 ibuprofen 200 mg tablet 2024 025 [facility], [address] [place], [address], 5 16:37:55 prednisone 20 mg tablet 2024 025 [facility], [address] [place], [address], 5 16:37:55 prednisone 20 mg tablet 2024 025 [facility], [address] [place], [address], 5 16:39:40 azithromyci n 250 mg tablet 2024 025 [facility], [address] [place], [address], 5 16:37:55 azithromyci n 250 mg tablet 2024 025 [facility], [address] [place], [address], 5 16:39:37 guaifenesin ER 600 mg tablet, extended release 12 hr 2024 025 [facility], [address] [place], [address], 5 16:39:42 Patient TargetsNo targets recorded. Patient InstructionsNo instructions recorded. Reason for Referral None Reported. Results Created Date Observation Date Name Description Value Unit Range Abnormal Flag Note LastModifiedBy Organization Detail LastModifiedTime 11/13/19 25 11/13/2024 BMP, serum or plasm a BUN 25 Not Available [facility] [address], [address], 11/13/2024 11:39:21 11/13/19 25 11/13/2024 rapid flu (A+B) Flu negati ve Not Available [facility] ed [address] [place] [address], [id number], 11/13/2024 11:39:31 11/13/19 25 11/13/2024 rapid SARS CoV 2 Ag, QL IA, respi rator y speci men rapid SARS CoV 2 Ag, QL IA, respiratory specimen negati ve Not Available [facility] ed [address] [place] [address], [address], 11/13/2024 11:39:30 Result Notes None recorded. Medical [...] Updated DateTime 5 97 % 97 % 72404.6 4 g 108 /min 162.56 cm 18 /min 102.4 [degF] 133 mm[Hg] 84 mm[Hg] Not Available [employer] 5 16:23:19 Date Recorded Heart rate Oxygen saturation Oxygen saturation in Arterial blood by Pulse oximetry Body weight Body temperature Respiratory rate Systolic blood pressure Diastolic blood pressure Provider Name and Address Organization Details Last Updated DateTime 5 87 /min 96 % 96 % 72609.4 g 98.9 [degF] 18 /min 158 mm[Hg] 90 mm[Hg] Not Available [employer] 5 11:13:58 Date Recorded Oxygen saturation Oxygen saturation in Arterial blood by Pulse oximetry Body temperature Heart rate Respiratory rate Systolic blood pressure Diastolic blood pressure Provider Name and Address Organization Details Last Updated DateTime 5 98 % 98 % 98.1 [degF] 82 /min 18 /min 136 mm[Hg] 77 mm[Hg] Not Available [employer] 5 14:12:15 Date Recorded Heart rate Respiratory rate Oxygen saturation Oxygen saturation in Arterial blood by Pulse oximetry Body temperature Systolic blood pressure Diastolic blood pressure Provider Name and Address Organization Details Last Updated DateTime 5 84 /min 18 /min 96 % 96 % 97.9 [degF] 128 mm[Hg] 79 mm[Hg] Not Available [employer] 12:55:12 Date Recorded Oxygen saturation Oxygen saturation in Arterial blood by Pulse oximetry Body temperature Respiratory rate Heart rate Systolic blood pressure Diastolic blood pressure Provider Name and Address Organization Details Last Updated DateTime 5 98 % 98 % 98.9 [degF] 16 /min 74 /min 150 mm[Hg] 84 mm[Hg] Not Available [employer] 13:10:57 Social History None recorded. Functional Status None recorded. Mental Status None recorded. Family History Nothing Reported. Medical History No medical history recorded. Gynecological HistoryNo gynecological history recorded. Obstetrics History GPAL:G 0 P 0 0 0 0 Past Encounters Encounter ID Performer Location Encounter Start Date Encounter Closed Date Diagnosis/Indication Diagnosis SNOMED-CT Code Diagnosis ICD10 Code Diagnosis Note [id number] Magali Montana MD Main - [facility] [phone] 11/22/2023 13:49:41 11/23/2023 10:14:11 Acute low back pain 817237670 M54.50 68 yo w/ chronic back pain [...] to 15mg toradol IM and help from senior clinician to reschedule pain clinic appt as soon as possible. [id number] Emiliano Roy MD [facility] - [facility] [address] [place] [id number] 04/06/2024 13:49:55 04/06/2024 20:33:11 Pain of left knee joint [id number] 84329 M25.562 [id number] Liza Davey MD [facility] - [facility] [address] [place] [id number] 05/25/2024 19:05:15 05/26/2024 11:41:59 Postoperative pain 939922709 G89.18 [id number] Asya Prater MD [facility] [address] [place] [id number] 06/10/2024 15:12:21 06/11/2024 18:23:36 Dizziness 296991225 R42 As noted, we were called to see this patient regarding concerns of dizziness. Evaluation in the field was performed by my senior clinician colleague, as noted above, I provided real-time [...] ly changes to mentation, chest pain, dysnea. [id number] Asya Prater MD [facility] [address] [place] [id number] 07/25/2024 19:57:02 08/21/2024 18:04:13 Pain of left knee joint [id number] 49482 M25.562 As noted, we were called to see this patient regarding concerns of knee pain. Evaluation in the field was performed by my senior clinician colleague, as noted above, I provided real-time [...] changes to consciousn ess, chest pain, dyspnea. [id number] Jaron Sanderson MD [facility] [address] [place] [id number] 09/20/2024 23:04:04 09/21/2024 08:55:28 Neck pain 84299098 M54.2 [id number] Asya Prater MD [facility] [address] [place] [id number] 10/22/2024 16:23:16 10/23/2024 00:19:26 Dyspnea 503626850 R06.00 As noted, we were called to see this patient regarding concerns of cough and dyspnea. 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 [...] to consciousn ess, chest pain, worsened breathing. [id number] Mirta Bustamante MD [facility] [address] [place] [phone] 11/13/2024 11:13:56 11/13/2024 21:25:11 Exacerbation of moderate persistent asthma 108198423 J45.41 s/p viral illness- no fever- no [...] that is covered/re d flags reviewed Dehydration 30510485 E86 .0 pat. clinically dry / BUN 25- felt better after ivf [id number] Pricila Du MD [facility] [address] [place] [id number] 11/15/2024 13:51:01 11/15/2024 19:52:39 Dyspnea 938977671 R06.00 [id number] Jerman Peck MD [facility] [address] [place] [id number] 12/17/2024 12:55:10 12/18/2024 09:46:50 Exacerbation of moderate persistent asthma 444450677 J45.41 COVID/flu negative. IV Methylpred nisone x1 [...] to present for higher level of care. [id number] Aida Ramos MD [facility] [address] [place] [phone] 12/18/2024 13:10:54 12/18/2024 21:29:57 Dizziness 869710079 R42 Evaluation in the field was performed by my senior clinician colleague, as noted above, I provided real-time direction and supervisio n for this visit. 69yo F endorsing fall with possible LOC last night iso new onset dizziness. Endorsing intermitte nt focal neurologic sx include L hand numbness, L sided weakness. on senior clinician eval VS unremarkab le, exam without focal [...] Marks Member ID Guarantor Name 10/22/2024 1 [facility] - DOS ON OR AFTER 2023 - DUAL ELIGIBLE - FDC OPTIONS AND ONE CARE (MEDICARE REPLACEMENT/ADV ANTAGE - HMO) Cherry Cool [id number] Cherry Cool 11/13/2024 1 [facility] - DOS ON OR AFTER 2023 - DUAL ELIGIBLE - FDC OPTIONS AND ONE CARE (MEDICARE REPLACEMENT/ADV ANTAGE - HMO) Cherry Cool [id number] Cherry Cool 11/15/2024 1 [facility] - DOS ON OR AFTER 2023 - DUAL ELIGIBLE - FDC OPTIONS AND ONE CARE (MEDICARE REPLACEMENT/ADV ANTAGE - HMO) Cherry Garayjason [id number] Cherry Cool 12/17/2024 1 [facility] - DOS ON OR AFTER 2023 - DUAL ELIGIBLE - FDC OPTIONS AND ONE CARE (MEDICARE REPLACEMENT/ADV ANTAGE - HMO) Cherry Trevino Silvina [id number] Cherry Garayjason 12/18/2024 1 [facility] - DOS ON OR AFTER 2023 - DUAL ELIGIBLE - FDC OPTIONS AND ONE CARE (MEDICARE REPLACEMENT/ADV ANTAGE - HMO) Cherry Trevino Silvina [id number] Cherry Cool Notes Date Note Type Note [...] Chief Complaints: Cough, Fever/chillsPMH: Hypertension, Rheumatoid ArthritisComments: Administrative Support Technician verified the Pt.'s name//address and phone number. [...] S/S not improving - Wellness visit requested. Manager Reporting Organization Information for Kieran Murrieta [employer] Legal Name: [facility] Address: [address] [place] [address], [address] [address], Glass Blower: Joesph Graham MD [facility] No.: [id number] Manager Reporting POC Test Results from JanesKieran louis - ALS Rapid COVID antigen (17:42:26) COVID: + Rapid influenza antigen (17:42:28) Flu: - ....................... ....................... ....................... ....................... ....................... ....................... ... Manager Reporting Note From Kieran Murrieta: This 69-year-old female with a history including but not limited to hypertension, COPD and rheumatoid arthritis requested a visit today to address one week of cough producing yellow sputum, rhinorrhea, body aches and subjective fever. Patient states she [facility] last night was not diagnosed with anything and did not have any medications prescribed. Patient states she is been using her albuterol nebulizer machine twice a day and is not been using any other [id number] medications. Patient is requesting an antibiotic, prednisone, [...] extremity edema. Rapid COVID positive and flu negative.[facility] contacted and the patient was treated with [...] questions and is agreeable to this plan. ....................... ....................... ....................... ....................... ....................... ....................... ... [facility] Consulted: Asya Prater ....................... ....................... ....................... ....................... ....................... ....................... ... Disposition: Reny Prater MD [address] [place] [address],[address], [place], [address], [employer] 10/22/2024 20:18:49 11/13/2024 text/html CRC Nurse Triage Notes (Holli Miller - RN): Chief Complaints: Asthma, Breathing problems, Dehydration PMH: Hypertension, Rheumatoid Arthritis, Asthma PMH Reviewed at 11/13/2024:26 Allergies Reviewed at 11/13/2024 - :26 Comments: Increased difficulty breathing x4 days. Patient has a non-productive cough. Difficulty eating and drinking. Reports little water intake. Feels dehydrated. c/o weakness. Finished course of Augmentin and Azithromycin prescribed by hospital aprox 5 days ago. Used Neb treatment this morning. Speaking full sentences without trouble breathing- NE Manager Reporting Organization Information for Bruno Clarke Legal Name: [employer] Address: [address] [place] [address] [place] [address], Glass Blower: Jared Zapata MD CLIA No.: [id number] Manager Reporting POC Test Results from Bruno Clarke iSTAT Chem8+ (11:35:00) Na: 137 mEq/L K: 4.5 mEq/L Cl: 106 mEq/L iCa: 1.15 mmol/L TCO2: 23 mmol/L Glu: 147 mg/dL BUN: 25 mg/dL Crea: 0.7 mg/dL Hct: 39 % Hb: 13.3 g/dL A Rapid COVID antigen (11:35:03) COVID: - Rapid influenza antigen (11:35:06) Flu: - ....................... ....................... ....................... ....................... ....................... ....................... ... Manager Reporting Note From Bruno Clarke: Dispatched to the [...] soft non tender/distended, pupils PERRL, -edema/swelling, Afebrile. [facility] consulted. IV (20g R hand) with blood draw, BMP, 1L LR given over 1 hour with reassessment every 15 minutes, 200mg Benzonatate and 40mg Prednisone given PO, DuoNeb with good effect. [facility] updated. Scripts called into preferred pharmacy. All med rights confirmed prior to administration. Red flags discussed. ALL times are approx. ....................... ....................... ....................... ....................... ....................... ....................... ... [facility] Consulted: Mirta Bustamante ....................... ....................... ....................... ....................... ....................... ....................... ... Disposition: Fulfilled SEGMD: seen by our service 10/22- dx with covid - given azithro/ guaifenesin ER/prednisone- patient worsened and presented to ED 10/25- - as above Mirta Bustamante MD [address] [facility],[address], [place], [address], [facility] 11/13/2024 14:53:58 11/15/2024 text/html CRC Nurse Triage [...] s/s and seek emergency treatment if needed. ....................... ....................... ....................... ....................... ....................... ....................... ... Manager Reporting Note From Katheryn Ma: Sent to a [...] to ED multiple times, been evaluated by sheet music salesperson and [facility]. Pt states she has been [...] neb administered. Pt reports little improvement. [facility] consulted and pt is advised she needs to be transported to ED for further eval since previous treatments don't appear to be working. Pt initially resists idea of going to ED, but then agrees to transport to [facility] ED. 911 called. Pt calms while waiting for ambulance. Pt care transferred to [facility] Dept. ....................... ....................... ....................... ....................... ....................... ....................... ... [facility] Consulted: Pricila Du ....................... ....................... ....................... ....................... ....................... ....................... ... Disposition: Fulfilled Pricila Du MD [address] [facility],[address], [place], [address], [place] [facility] [employer] [facility] 11/15/2024 16:37:46 12/17/2024 text/html CRC Nurse Triage Notes (Watson [...] Hypertension, Rheumatoid Arthritis, Asthma PMH Reviewed at 12/17/202448 Allergies Reviewed at 12/17/2024:48 Comments: Administrative Support Technician verified the Pt.'s name//address and phone number. Education provided on the response time and the Pt. was advised to monitor reported s/s and seek emergency treatment if needed. Pt reports feeling unwell with a cough/cold and congestion - SOB - Breathing is full sentences at this time - Wheezing noted - with chest heaviness/chest pain -Diaphoretic - 07/27 pain - Crushing - Pain when taking a deep breath - Decreased PO intake - Denies fever - Denies Nausea and vomiting - S/S started yesterday - Declined ER treatment - Concerned expressed - Hx Bronchial asthma Manager Reporting Organization Information for Kieran Murrieta [employer] Legal Name: [facility] [employer] Address: [address] [place] [address], [address] [address], Glass Blower: Joesph Graham MD CLIA No.: [id number] Manager Reporting POC Test Results from Kieran Murrieta Rapid influenza antigen (12:53:42) Flu: - Rapid COVID antigen (12:53:42) COVID: - ....................... ....................... ....................... ....................... ....................... ....................... ... Manager Reporting Note From Kieran Murrieta: This 69-year-old female [...] questions and is agreeable to this plan. [facility] Lab Orders: rapid SARS CoV 2 Ag, QL IA, respiratory specimen: Performed rapid flu (A+B): Performed [facility] Medication Orders: methylprednisolone sod succ (PF) 125 mg/2 mL solution for injection: Administered Comment: 62 mg IVP azithromycin 500 mg tablet: Administered ....................... ....................... ....................... ....................... ....................... ....................... ... [facility] Consulted: Yefri Peck ....................... ....................... ....................... ....................... ....................... ....................... ... Disposition: Fulfilled Jerman Peck MD [address] [place] [address],[address], [place], [address], [employer] 12/17/2024 14:52:16 12/18/2024 text/html [facility] Nurse Triage Notes (Holli Miller): Reason For [...] PMH Reviewed at 12/18/2024 Allergies Reviewed at 12/18/2024: Comments: Patient reports dizzy started during the [...] s/s and seek emergency treatment if needed. ....................... ....................... ....................... ....................... ....................... ....................... ... Manager Reporting Note From Bruno Clarke: Dispatched to the [...] PERRL, lungs CTA, afebrile, +CMSx4, -edema/swelling. -spinal stepoff/tenderness, no obvious signs of trauma noted. Blood glucose 147. [facility] consulted. Pt was advised to seek a further work up in the ED. Pt agreed but stated her daughter was on her way and she would prefer she take her to the ED. Red flags discussed. ALL times are approx. ....................... ....................... ....................... ....................... ....................... ....................... ... [facility] Consulted: Aida Ramos ....................... ....................... ....................... ....................... ....................... ....................... ... Disposition: Fulfilled Aida Ramos MD [address] [facility],[address], [place], [address], [place] [facility] [employer] 12/18/2024 13:58:24 OBGyn Episode No OBEpisode recorded.
== END 2024-12-27 10:37 | disposition home or self-care (01) ==
LOC: HO.HOS 10:16
PROVIDERS: PCP Internal Medicine
DX: M65.331 Trigger finger, right middle finger (principal)
CPT/HCPCS: 99024

== ENCOUNTER → 2024-12-27 10:15 | Outpatient (BNVA) | payer OTHER, SELFPAY | PROVIDERS: PCP Internal Medicine | DX: Z47.89 Encounter for other orthopedic aftercare (principal); M65.331 Trigger finger, right middle finger; Z98.890 Other specified postprocedural states | CPT/HCPCS: 99212 ==

== ENCOUNTER 2025-01-12 11:19 | Outpatient (REF) | payer OTHER, SELFPAY ==
[2025-01-12 13:13] LABS: MANUAL DIFF FLAG NO
[2025-01-12 13:43] LABS: Basophils Percent Auto 0.4 % (0-2); Eosinophils Absolute Auto 0.1 X10*3/uL (0.0-0.4); Eosinophils Percent Auto 1.1 % (0-4); Hematocrit 37.2 % (37.0-47.0); Imm Gran Abs Auto 0.03 X10*3/uL (0.00-0.03); Imm Gran Pct Auto 0.3 % (0.0-0.4); Lymphocytes Absolute Auto 3.4 X10*3/uL (1.2-4.9); Lymphocytes Percent Auto 37.2 % (20-40); Mean Corpuscular HGB Conc 32.3 g/dl (31.0-35.0); Mean Corpuscular Hemoglobin 25.3 pg (27.0-33.0); Mean Corpuscular Volume 78.5 fL (80.0-98.0); Mean Platelet Volume 12.1 fL (9.4-12.3); Monocytes Absolute Auto 0.9 X10*3/uL (0.1-1.2); Monocytes Percent Auto 9.9 % (2-11); Neutrophils Absolute Auto 4.6 x10*3/uL (2.0-8.3); Neutrophils Percent Auto 51.1 % (45-73); Platelet Count 304 X10*3/uL (160-400); Red Blood Count 4.74 X10*6/uL (4.20-5.50); Red Cell Distribution Width 17.9 % (11.0-16.0)
[2025-01-12 13:47] LABS: Estimated Average Glucose 146 mg/dL; Hemoglobin A1c % 6.7 % (<6.0)
[2025-01-12 14:09] LABS: Alanine Aminotransferase 18 U/L (0-31); Albumin Level 4.2 g/dL (3.5-5.0); Alkaline Phosphatase 78 U/L (39-117); Anion Gap 11 (12-20); Aspartate Amino Transferase 21 U/L (5-31); Bilirubin Total 0.4 mg/dL (0.0-1.0); Blood Urea Nitrogen 21 mg/dL (9-16); Calcium 9.6 mg/dL (8.4-10.2); Carbon Dioxide 24 mmol/L (22-29); Chloride 109 mmol/L (96-108); Cholesterol 240 mg/dL (<200); Estimated Glomerular Filt Rate > 60; Glucose Fasting 139 mg/dL (60-99); HDL Cholesterol 67 mg/dL (>40); LDL Cholesterol Calculated 139 mg/dL (<100); Potassium 3.9 mmol/L (3.3-5.1); Sodium 140 mmol/L (135-145); TSH reflex Free T4 1.21 uIU/mL (0.32-4.0); Total Protein 7.4 g/dL (6.5-8.0); Triglycerides 172 mg/dL (<150)
[2025-01-12 14:12] LABS: Vitamin B12 575 pg/mL (200-900)
[2025-01-18 00:09] LABS: Vitamin D 25-OH, D2 <4 ng/mL; Vitamin D 25-OH, D3 38 ng/mL; Vitamin D 25-OH, Total 38 ng/mL (30-100)
== END 2025-01-12 11:20 | disposition home or self-care (01) ==
LOC: HO.HMGCLDS 11:19
PROVIDERS: PCP Internal Medicine; Visit Provider Internal Medicine
DX: I10 Essential (primary) hypertension (principal); M06.9 Rheumatoid arthritis, unspecified; H81.13 Benign paroxysmal vertigo, bilateral; J84.9 Interstitial pulmonary disease, unspecified; M48.062 Spinal stenosis, lumbar region with neurogenic claudication; F33.1 Major depressive disorder, recurrent, moderate; F41.1 Generalized anxiety disorder; E66.09 Other obesity due to excess calories; Z68.33 Body mass index [BMI] 33.0-33.9, adult; N39.46 Mixed incontinence; R15.9 Full incontinence of feces; R15.2 Fecal urgency; M79.7 Fibromyalgia; K21.9 Gastro-esophageal reflux disease without esophagitis; M81.0 Age-related osteoporosis without current pathological fracture; M54.50 Low back pain, unspecified; G89.29 Other chronic pain; Z79.899 Other long term (current) drug therapy; Z91.09 Other allergy status, other than to drugs and biological substances; M25.561 Pain in right knee; Z13.1 Encounter for screening for diabetes mellitus
CPT/HCPCS: 36415; 80053; 80061; 82306; 82607; 83036; 84443; 85025; 99212

== ENCOUNTER 2025-01-12 11:19 | Outpatient (AMB) | payer OTHER, SELFPAY ==
[2025-01-12 11:21] VITALS: BP 128/76; PULSE 82; O2SAT 98; BMI 37.5
--- NOTE | 2025-01-12 11:21 | A.OFFPC_ITS ---
Vital Signs 01/12/25 11:21 Height 5 ft 1 in Weight 198 lb 4 oz BMI 37.5 BP 128/76 Blood Pressure Location Rt brachial Position Sitting Pulse 82 Pulse Source Pulse Oximeter Pulse Oximetry (%) 98 Oxygen Delivery Method Room Air Intake Visit Reasons: insomnia w/depression, muscle spasm Allergies acetaminophen [From Tylenol] Allergy (Severe, Verified 01/12/25 11:31) Shortness of Breath ibuprofen Allergy (Severe, Verified 01/12/25 11:31) shortness of breath canned food Allergy (Intermediate, Uncoded 11/16/24 15:58) Shortness of Breath Medication List - Last Reconciled 01/12/25 by Federico Yates MD [bed bars As directed NS] [adult diapers medium Use for incontinence episodes at night.] [adult pull-ups As directed NS] albuterol sulfate 2.5 mg (3 mL) inhalation Q4-6H PRN 30 days alendronate (Fosamax) 70 mg PO QWEEK 90 days alum-mag hydroxide-simeth 200-200-20 mg/5 mL (Maalox Advanced) 10 mL PO ONCE PRN 30 days [bed table As directed] benzonatate 150 mg PO BID 15 days [Blood pressure monitor As directed] capsaicin 0.025% 1 appl topical BID 30 days cetirizine 10 mg PO DAILY PRN cyclobenzaprine 10 mg PO TID PRN disposable gloves Size medium [disposable pads-up to 3/day As directed] docusate sodium (Colace) 100 mg PO BID doxepin 10 mg PO BEDTIME duloxetine 20 mg PO DAILY 90 days gabapentin 100 mg PO TID ipratropium-albuterol 0.5 mg-3 mg(2.5 mg base)/3 mL 3 mL inhalation Q6H PRN 3 weeks lisinopril 5 mg PO DAILY 90 days lorazepam 0.5 mg PO BEDTIME PRN 30 days lorazepam 1 mg PO DAILY PRN memantine 10 mg PO QAM [mobility scooter As directed NS] montelukast 10 mg PO DAILY nebulizer and compressor (Comp-Air Nebulizer Compressor) As directed [non-slip shower mat As directed NS] ondansetron HCl 4 mg PO Q8H PRN 30 days pantoprazole 40 mg PO DAILY@0630 [raised toilet seat As directed NS] [showering chairs As directed] simvastatin 20 mg PO BEDTIME walker As directed walker Use As directed NS Tobacco use date assessed: 01/12/25 Fall risk assessment: No Falls in past year Last assessed Fall Risk: 01/12/25 Dental Screening Dental Screen Date: 01/12/25 Did you have a dental visit in the last 12 months?: No Did you have a dental problem in the last 6 months where you did not have access to dental care?: No Was dental information given to patient?: No HPI insomnia w/depression, muscle spasm HPI Details - The patient is a 69-year-old female wi th a history of rheumatoid arthritis, fibromyalgia, myofascial pain syndrome, hypertension, allergies, asthma, cognitive dysfunction, walker dependent, urine incontinence, depression, anxiety, insomnia, impaired fasting sugar, taking multiple medications through different providers and is at risk for polypharmacy which I have verbalized many time before presenting with concerns of possible diabetes. - Reports persistent dry mouth not assoc iated with her current medication regime and manages this by consuming sweets, notably postprandially. - She expresses intention to have fastin g blood work done today due to suspicion of diabetes, supported by a family history (paternal) and possibly age-related risk. Medications - Alendronate - Cetrizine - Cyclobenzaprine - Doxepin - Duloxetine - Gabapentin - Nebulizer treatments - Lisinopril 5 mg - Lorazepam - Memantine - Montelukast - Pantoprazole - Simvastatin Patient Instructions - Proceed with a fasting blood test to e valuate blood glucose levels. - Continue current medication regimen un less otherwise directed. Consider discontinuing some medications especially psychiatric medications - Await lab results for further evaluati on and management. Review of Systems General: No fever no chills neurological: No headaches no dizziness ear nose throat: No sore throat no hearing difficulty no ear pain cardiovascular: No syncope, no chest pain, no palpitations gastrointestinal: No nausea vomiting or diarrhea endocrine: No polyuria polydipsia no heat intolerance genitourinary: No dysuria skin: No new complaints Physical Exam general: No acute distress HEENT: Dry mouth neck: Supple respiratory system: Able to talk in full sentences, no audible wheeze no stridor cardiovascular: S1-S2 regular in rate and rhythm gastrointestinal: No pain extremities: Impaired mobility, uses walker PROCESS COORDINATOR: Alert awake oriented x3 motor sensory intact skin: Normal turgor [facility] Medical History Cognitive disorder Hand numbness GERD (gastroesophageal reflux disease) Cold intolerance Rheumatoid arthritis Lumbar spinal stenosis RAÚL (obstructive sleep apnea) Trigger finger Sleep disorder breathing Latent tuberculosis Cough Asthma Chronic pain syndrome Myofascial muscle pain Osteoarthritis Fibromyalgia HTN (hypertension) Anxiety Surgical History Hx of ovarian cystectomy Hx of cervical discectomy History of lumbar surgery Family History Father Diabetes Mother Acute arthritis Other Mental health disorder Social History Household Members: None Housing: Apartment Are you a primary primary care provider to a significant other at home: No Do you presently have visiting nurse or other home services: Yes ([employer].) Alcohol intake: never Comment: COUNTS CORRECT Patient Tobacco Use Status: Never used Tobacco e-Cigarette/Vaping Use: Never Used Advance Directives Date on File: 02/26/22 service: No Current occupational status: unemployed Cognitive needs: No Hearing needs: No Vision needs: No Questionnaire Thrive Questionnaire Date Thrive assessed: 05/17/24 AUDIT C Alcohol Use Questionnaire (AUDIT-C) 1. How often do you have a drink containing alcohol?: Never 3. How often do you have six or more drinks on one occasion?: Never Total Score: 0 Score Reviewed/Action Taken: Yes MATTHEW-7 AMB Questionnaire MATTHEW-7 Date MATTHEW - 7 assessed: 12/02/23 Source: Developed by Drs. Bj Ingram, Yolanda Glass, Dexter Ferguson and colleagues, with an educational jesus from [employer]. Physical exam (Primary Care) Vital Signs: Last Vital Signs Pulse 82 01/12/25 11:21 BP 128/76 01/12/25 11:21 Pulse Ox 98 01/12/25 11:21 Oxygen Delivery Method Room Air 01/12/25 11:21 BMI result Body Mass Index 37.5 Tobacco/Smoking Status: Tobacco use Status Tobacco use date assessed 01/12/25 01/12/25 11:32 Patient Tobacco Use Status Never used Tobacco 01/12/25 11:25 e-Cigarette/Vaping Use Never Used 01/12/25 11:25 Thrive Assessment: Date of Thrive Assessment Date Thrive assessed 05/17/24 01/12/25 11:25 Coding Level of Care Code Est Pt Level 4 (66143) Complex EM visit Add On G2211 Diagnoses Hypertension, essential I10 Environmental allergies Z91.09 Rheumatoid arthritis involving multiple sites, unspecified whether rheumatoid factor present M06.9 Rheumatoid arthritis location: multiple sites Rheumatoid factor presence: unspecified presence Benign paroxysmal positional vertigo due to bilateral vestibular disorder H81.13 Laterality: bilateral Interstitial lung disease J84.9 Spinal stenosis of lumbar region with neurogenic claudication M48.062 Neurogenic claudication status: with neurogenic claudication Moderate episode of recurrent major depressive disorder F33.1 Active/Remission status: currently active Major depression episode severity: moderate Anxiety, generalized F41.1 Class 1 obesity due to excess calories with serious comorbidity and body mass index (BMI) of 33.0 to 33.9 in adult E66.09; Z68.33 Body mass index: BMI 33.0-33.9 Obesity classification: adult class 1 (BMI 30 - 34.9) Serious obesity comorbidity presence: with serious comorbidity Mixed stress and urge urinary incontinence N39.46 Urinary Incontinence type: mixed stress and urge incontinence Incontinence of feces with fecal urgency R15.9; R15.2 Fecal incontinence type: fecal urgency Fibromyalgia M79.7 Chronic GERD K21.9 Age-related osteoporosis without current pathological fracture M81.0 Presence of current pathological fracture: without current pathological fracture Chronic bilateral low back pain without sciatica M54.50; G89.29 Back pain laterality: bilateral Sciatica presence: without sciatica Assessment & Plan Assessment & Plan (1) Hypertension, essential: Code(s): I10 - Essential (primary) hypertension Category: Medical (2) Environmental allergies: Code(s): Z91.09 - Other allergy status, other than to drugs and biological substances Category: Medical (3) Rheumatoid arthritis: Code(s): M06.9 - Rheumatoid arthritis, unspecified Category: Medical Qualifiers: Rheumatoid arthritis location: multiple sites Rheumatoid factor presence: unspecified presence Qualified Code(s): M06.9 - Rheumatoid arthritis, unspecified (4) Benign paroxysmal positional vertigo: Code(s): H81.10 - Benign paroxysmal vertigo, unspecified ear Category: Medical Qualifiers: Laterality: bilateral Qualified Code(s): H81.13 - Benign paroxysmal ve rtigo, bilateral (5) Interstitial lung disease: Code(s): J84.9 - Interstitial pulmonary disease, unspecified Category: Medical (6) Lumbar spinal stenosis: Code(s): M48.061 - Spinal stenosis, lumbar region without neurogenic claudication Category: Medical Qualifiers: Neurogenic claudication status: with neurogenic claudication Qualified Code(s): M48.062 - Spinal stenosis, lumbar region with neurogenic claudication (7) Major depression, recurrent: Code(s): F33.9 - Major depressive disorder, recurrent, unspecified Category: Medical Qualifiers: Active/Remission status: currently active Major depression episode severity: moderate Qualified Code(s): F33.1 - Major depressive disorder, recurr ent, moderate (8) Anxiety, generalized: Comment: She does have anxiety syndrome, which is a at peak right now after she had this acute COVID infection, without generalized pneumonia. I sat with her and explained in great detail. I advised her to be patient . I gave in writing that the cough may linger on for about 10-12 weeks . She seems to understand , She may use Robitussin with DM 2 tsp t.i.d. but this will be [id number]. Code(s): F41.1 - Generalized anxiety disorder Category: Medical (9) Obesity due to excess calories: Comment: ,She is moderately obese and this may be contributing to her symptoms of sleep apnea at night. Code(s): E66.09 - Other obesity due to excess calories Category: Medical Qualifiers: Body mass index: BMI 33.0-33.9 Obesity classification: adult class 1 (BMI 30 - 34.9) Serious obesity comorbidity presence: with serious comorbidity Qualified Code(s): E66.09 - Other obesity due to excess calories; Z68.33 - Body mass index [BMI] 33.0-33.9, adult (10) Urine incontinence: Code(s): R32 - Unspecified urinary incontinence Category: Medical Qualifiers: Urinary Incontinence type: mixed stress and urge incontinence Qualified Code(s): N39.46 - Mixed incontinence (11) Bowel incontinence: Code(s): R15.9 - Full incontinence of feces Category: Medical Qualifiers: Fecal incontinence type: fecal urgency Qualified Code(s): R15.9 - Full incontinence of feces; R15.2 - Fecal urgency (12) Fibromyalgia: Code(s): M79.7 - Fibromyalgia Category: Medical (13) Chronic GERD: Code(s): K21.9 - Gastro-esophageal reflux disease without esophagitis Category: Medical (14) Age related osteoporosis: Code(s): M81.0 - Age-related osteoporosis without current pathological fracture Category: Medical Qualifiers: Presence of current pathological fracture: without current pathological fracture Qualified Code(s): M81.0 - Age-related osteoporosis without current pathological fracture (15) Chronic low back pain: Code(s): M54.50 - Low back pain, unspecified; G89.29 - Other chronic pain Category: Medical Qualifiers: Back pain laterality: bilateral Sciatica presence: without sciatica Qualified Code(s): M54.50 - Low back pain, unspecified; G89.29 - Other chronic pain Plan - The patient is a 69-year-old female with a history of rheumatoid arthritis, fibromyalgia, myofascial pain syndrome, hypertension, allergies, asthma, cognitive dysfunction, walker dependent, urine incontinence, depression, anxiety, insomnia, impaired fasting sugar, taking multiple medications through different providers and is at risk for polypharmacy which I have verbalized many time before presenting with concerns of possible diabetes. - Reports persistent dry mouth not associated with her current medication regime and manages this by consuming sweets, notably postprandially. - She expresses intention to have fasting blood work done today due to suspicion of diabetes, supported by a family history (paternal) and possibly age-related risk. Medications - Alendronate - Cetrizine - Cyclobenzaprine - Doxepin - Duloxetine - Gabapentin - Nebulizer treatments - Lisinopril 5 mg - Lorazepam - Memantine - Montelukast - Pantoprazole - Simvastatin Patient Instructions - Proceed with a fasting blood test to evaluate blood glucose levels. - Continue current medication regimen unless otherwise directed. Consider disc ontinuing some medications especially psychiatric medications - Await lab results for further evaluation and management. Orders: Orders Lipid Panel Today E66.09 - Other obesity due to excess calories, F33.1 - Major depressive disorder, recurrent, moderate, F41.1 - Generalized anxiety disorder, H81.13 - Benign paroxysmal vertigo, bilateral, I10 - Essential (primary) hypertension, J84.9 - Interstitial pulmonary disease, unspecified, M06.9 - Rheumatoid arthritis, unspecified, M48.062 - Spinal stenosis, lumbar region with neurogenic claudication, Z68.33 - Body mass index [BMI] 33.0-33.9, adult, Z91.09 - Other allergy status, other than to drugs and biological substances Vitamin B12 Today E66.09 - Other obesity due to excess calories, F33.1 - Major depressive disorder, recurrent, moderate, F41.1 - Generalized anxiety disorder, H81.13 - Benign paroxysmal vertigo, bilateral, I10 - Essential (primary) hypertension, J84.9 - Interstitial pulmonary disease, unspecified, M06.9 - Rheumatoid arthritis, unspecified, M48.062 - Spinal stenosis, lumbar region with neurogenic claudication, Z68.33 - Body mass index [BMI] 33.0-33.9, adult, Z91.09 - Other allergy status, other than to drugs and biological substances Hemoglobin A1c Today E66.09 - Other obesity due to excess calories, F33.1 - Major depressive disorder, recurrent, moderate, F41.1 - Generalized anxiety disorder, H81.13 - Benign paroxysmal vertigo, bilateral, I10 - Essential (primary) hypertension, J84.9 - Interstitial pulmonary disease, unspecified, M06.9 - Rheumatoid arthritis, unspecified, M48.062 - Spinal stenosis, lumbar region with neurogenic claudication, Z68.33 - Body mass index [BMI] 33.0-33.9, adult, Z91.09 - Other allergy status, other than to drugs and biological substances TSH reflex Free T4 Today E66.09 - Other obesity due to excess calories, F33.1 - Major depressive disorder, recurrent, moderate, F41.1 - Generalized anxiety disorder, H81.13 - Benign paroxysmal vertigo, bilateral, I10 - Essential (primary) hypertension, J84.9 - Interstitial pulmonary disease, unspecified, M06.9 - Rheumatoid arthritis, unspecified, M48.062 - Spinal stenosis, lumbar region with neurogenic claudication, Z68.33 - Body mass index [BMI] 33.0-33.9, adult, Z91.09 - Other allergy status, other than to drugs and biological substances Complete Blood Count Auto Diff Today E66.09 - Other obesity due to excess calor ies, F33.1 - Major depressive disorder, recurrent, moderate, F41.1 - Generalized anxiety disorder, H81.13 - Benign paroxysmal vertigo, bilateral, I10 - Essential (primary) hypertension, J84.9 - Interstitial pulmonary disease, unspecified, M06.9 - Rheumatoid arthritis, unspecified, M48.062 - Spinal stenosis, lumbar region with neurogenic claudication, Z68.33 - Body mass index [BMI] 33.0-33.9, adult, Z91.09 - Other allergy status, other than to drugs and biological substances Comprehensive [place]. Panel Fast Today E66.09 - Other obesity due to excess calories, F33.1 - Major depressive disorder, recurrent, moderate, F41.1 - Generalized anxiety disorder, H81.13 - Benign paroxysmal vertigo, bilateral, I10 - Essential (primary) hypertension, J84.9 - Interstitial pulmonary disease, unspecified, M06.9 - Rheumatoid arthritis, unspecified, M48.062 - Spinal stenosis, lumbar region with neurogenic claudication, Z68.33 - Body mass index [BMI] 33.0-33.9, adult, Z91.09 - Other allergy status, other than to drugs and biological substances Vitamin D 25-OH (D2 and D3) Today E66.09 - Other obesity due to excess calories, F33.1 - Major depressive disorder, recurrent, moderate, F41.1 - Generalized anxiety disorder, H81.13 - Benign paroxysmal vertigo, bilateral, I10 - Essential (primary) hypertension, J84.9 - Interstitial pulmonary disease, unspecified, M06.9 - Rheumatoid arthritis, unspecified, M48.062 - Spinal stenosis, lumbar region with neurogenic claudication, Z68.33 - Body mass index [BMI] 33.0-33.9, adult, Z91.09 - Other allergy status, other than to drugs and biological substances
== END 2025-01-12 11:50 | disposition home or self-care (01) ==
PROVIDERS: PCP Internal Medicine; Visit Provider Internal Medicine
DX: J84.9 Interstitial pulmonary disease, unspecified (principal); F33.1 Major depressive disorder, recurrent, moderate; M06.9 Rheumatoid arthritis, unspecified; E66.09 Other obesity due to excess calories; Z68.33 Body mass index [BMI] 33.0-33.9, adult; I10 Essential (primary) hypertension; Z91.09 Other allergy status, other than to drugs and biological substances; H81.13 Benign paroxysmal vertigo, bilateral; M48.062 Spinal stenosis, lumbar region with neurogenic claudication; F41.1 Generalized anxiety disorder; N39.46 Mixed incontinence; R15.9 Full incontinence of feces

== ENCOUNTER 2025-01-12 14:53 | Outpatient (AMB) | payer OTHER, SELFPAY ==
--- NOTE | 2025-01-12 14:55 | HO.SPINEOV ---
Intake Visit Reasons: back pain & R leg pain Intake Note: Ms. Uriel Cool is here today c/o back pain and Right leg pain. Sports Therapist Required: No Allergies acetaminophen [From Tylenol] Allergy (Severe, Verified 01/12/25 14:55) Shortness of Breath ibuprofen Allergy (Severe, Verified 01/12/25 14:55) shortness of breath canned food Allergy (Intermediate, Uncoded 11/16/24 15:58) Shortness of Breath Assessment & Plan Assessment & Plan (1) Right medial knee pain: Code(s): M25.561 - Pain in right knee Category: Medical Plan Dear colleague, On 01/12/2025, I saw for follow-up they made a her son my the. This 69-year-old female underwent an oblique lumbar interbody fusion in April 2024 for adjacent degenerative disc disease causing back pain radiating down both legs. She was unable to stand or walk for periods of time. These symptoms have much improved. In fact her left leg pain has completely disappeared. Her main complaint today is a pain on the medial side of her right knee. When she walks for more than 20 minutes then the next day the knee will hurt. She also complains of her right-sided back pain at that time. On exam, she is able to flex and extend the lumbar spine without any restrictions or pain. Straight leg raise is negative. There is severe pain on palpation on the medial side of her right knee. No swelling. Tera test negative In summary, this patient is suffering from medial knee pain and right back pain. I would like to refer to Orthopedic surgery to rule out any new pathology. Clinically it is suspicious for a meniscal tear. If this comes back negative then I will order an MRI of the lumbar spine. I spent 20 minutes in his consult. To discuss history and plan of care. Gold Pulido MD, PhD Spine Fellowship Trained Neurosurgeon Director, [facility] [facility] Orders: Referrals Orthopedics Referral M25.561 - Pain in right knee Coding Level of Care Code Est Pt Level 3 (26071) Diagnoses Right medial knee pain M25.561
== END 2025-01-12 15:08 | disposition home or self-care (01) ==
LOC: HO.HNS 14:53
PROVIDERS: PCP Internal Medicine; Visit Provider Neurological Surgery
DX: M25.561 Pain in right knee (principal)
CPT/HCPCS: 99213

== ENCOUNTER → 2025-01-18 08:36 | Outpatient (BNVA) | payer OTHER, SELFPAY | PROVIDERS: PCP Internal Medicine; Visit Provider Internal Medicine ==

== ENCOUNTER 2025-01-18 08:53 | Outpatient (AMB) | payer OTHER, SELFPAY ==
--- NOTE | 2025-01-18 08:39 | A.OFFPC_ITS ---
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: No Accompanied by: Self / Same As Patient Allergies acetaminophen [From Tylenol] Allergy (Severe, Verified 01/18/25 08:58) Shortness of Breath ibuprofen Allergy (Severe, Verified 01/18/25 08:58) shortness of breath canned food Allergy (Intermediate, Uncoded 11/16/24 15:58) Shortness of Breath Medication List - Last Reconciled 01/18/25 by Federico Yates MD [bed bars As directed NS] [adult diapers medium Use for incontinence episodes at night.] [adult pull-ups As directed NS] albuterol sulfate 2.5 mg (3 mL) inhalation Q4-6H PRN 30 days alendronate (Fosamax) 70 mg PO QWEEK 90 days alum-mag hydroxide-simeth 200-200-20 mg/5 mL (Maalox Advanced) 10 mL PO ONCE PRN 30 days [bed table As directed] benzonatate 150 mg PO BID 15 days [Blood pressure monitor As directed] capsaicin 0.025% 1 appl topical BID 30 days cetirizine 10 mg PO DAILY PRN cyclobenzaprine 10 mg PO TID PRN disposable gloves Size medium [disposable pads-up to 3/day As directed] doxepin 10 mg PO BEDTIME duloxetine 20 mg PO DAILY 90 days gabapentin 100 mg PO TID ipratropium-albuterol 0.5 mg-3 mg(2.5 mg base)/3 mL 3 mL inhalation Q6H PRN 3 weeks lisinopril 5 mg PO DAILY 90 days lorazepam 0.5 mg PO BEDTIME PRN 30 days lorazepam 1 mg PO DAILY PRN memantine 10 mg PO QAM [mobility scooter As directed NS] montelukast 10 mg PO DAILY nebulizer and compressor (Comp-Air Nebulizer Compressor) As directed [non-slip shower mat As directed NS] ondansetron HCl 4 mg PO Q8H PRN 30 days pantoprazole 40 mg PO DAILY@0630 [raised toilet seat As directed NS] [showering chairs As directed] simvastatin 20 mg PO BEDTIME walker As directed walker Use As directed NS Tobacco use date assessed: 01/12/25 Fall risk assessment: No Falls in past year Last assessed Fall Risk: 01/18/25 Dental Screening Dental Screen Date: 01/12/25 HPI Discuss Labs HPI Details History The patient is a 69-year-old female presenting with persistent symptoms following spinal surgery. - She has experienced difficulty standin g for extended periods, limited to a maximum of five minutes. - She underwent a previous spinal surger y, but continues to have significant discomfort. - The discomfort prevents her from sitti ng properly, and she has found it impacting her ability to sleep. - Consulted surgeon who suggested potent ial further imaging pending the outcome at the orthopedic clinic visit. - Additionally, she was informed about n ew-onset diabetes mellitus with a fasting blood sugar of 139 mg/dL. Hba1c is 6.7 Problem List - Post-surgical spine condition - Diabetes mellitus Patient Instructions - Control your diet, avoiding sweets, es pecially during Ramadan. - Begin checking your blood sugar with t he machine to be collected from [facility]. - Check your blood sugar once daily in t he morning and monitor that it stays below 150 mg/dL. - Understand that if diet is not control led, medication might become necessary in the future. - Plan for re-evaluation in three months to reassess blood sugar levels. Review of Systems Musculoskeletal: - Reports difficulty standing, sitting, and sleeping due to discomfort since spinal surgery. - General: No fever no chills - Neurological: No headaches no dizziness - Ear nose throat: No sore throat no hearing difficulty no ear pain - Cardiovascular: No syncope, no chest pain, no palpitations - Gastrointestinal: No nausea vomiting or diarrhea PFSH Medical History Cognitive disorder Hand numbness GERD (gastroesophageal reflux disease) Cold intolerance Rheumatoid arthritis Lumbar spinal stenosis RAÚL (obstructive sleep apnea) Trigger finger Sleep disorder breathing Latent tuberculosis Cough Asthma Chronic pain syndrome Myofascial muscle pain Osteoarthritis Fibromyalgia HTN (hypertension) Anxiety Surgical History Hx of ovarian cystectomy Hx of cervical discectomy History of lumbar surgery Family History Father Diabetes Mother Acute arthritis Other Mental health disorder Social History Household Members: None Housing: Apartment Are you a primary geriatric personal care aide to a significant other at home: No Do you presently have visiting nurse or other home services: Yes (ALLERGIST/MD.) Alcohol intake: never Comment: COUNTS CORRECT Patient Tobacco Use Status: Never used Tobacco e-Cigarette/Vaping Use: Never Used Advance Directives Date on File: 02/26/22 service: No Current occupational status: unemployed Cognitive needs: No Hearing needs: No Vision needs: No Questionnaire PHQ-9 Over the last 2 weeks, how often have you been bothered by any of the following problems? 13016 - PHQ-9 Billing: Patient declined-do not bill Source: Developed by Drs. Bj Ingram, Yolanda Glass, Dexter Ferguson and colleagues, with an educational jesus from [employer]. Thrive Questionnaire Date Thrive assessed: 01/18/25 I am a: Patient What is your living situation today?: I have a steady place to live Within the past 12 months, did the food you bought not last and you didn't have the money to get more?: Never true Within the past 12 months, did you worry whether your food would run out before you got money to buy more?: Never true Do you have trouble paying for medicines?: No Do you have trouble getting transportation to medical appointments?: No Do you have trouble paying your heating and electricity bill?: No Do you have trouble taking care of your child, family member or friend?: No Do you have trouble with day-to-day activities such as bathing, preparing meals, shopping, managing finances, etc.?: No Are you currently unemployed and looking for a job?: No Are you interested in more education?: No Please select the resources that you would like help with: None THRIVE Score: 0 AUDIT C Alcohol Use Questionnaire (AUDIT-C) 1. How often do you have a drink containing alcohol?: Never 3. How often do you have six or more drinks on one occasion?: Never Total Score: 0 Score Reviewed/Action Taken: Yes MATTHEW-7 AMB Questionnaire MATTHEW-7 Date MATTHEW - 7 assessed: 01/18/25 (patient declined) Source: Developed by Drs. Bj Ingram, Yolanda Glass, Dexter Ferguson and colleagues, with an educational jesus from [employer]. Physical exam (Primary Care) Tobacco/Smoking Status: Tobacco use Status Tobacco use date assessed 01/12/25 01/18/25 08:39 Patient Tobacco Use Status Never used Tobacco 01/18/25 08:39 e-Cigarette/Vaping Use Never Used 01/18/25 08:39 Thrive Assessment: Date of Thrive Assessment Date Thrive assessed 01/18/25 01/18/25 08:59 Telehealth Telehealth Telehealth Platform: [employer] Location of provider rendering services: practice address Location of patient: address on file Patient Identification confirmed using: Name, : Yes Telehealth method: voice only Patient verbally consented to treatment: Yes Patient verbally consented to billing insurance company: Yes Patient informed of any privacy concerns related to visit: Yes Minutes spent on Phone/Video with Pt.: 13 Coding Level of Care Code Tele Est Pt Level 3 (23909) Diagnoses New onset type 2 diabetes mellitus E11.9 Assessment & Plan Assessment & Plan (1) New onset type 2 diabetes mellitus: Code(s): E11.9 - Type 2 diabetes mellitus without complications Category: Medical Plan History The patient is a 69-year-old female presenting with persistent symptoms following spinal surgery. - She has experienced difficulty standing for extended periods, limited to a maximum of five minutes. - She underwent a previous spinal surgery, but continues to have significant discomfort. - The discomfort prevents her from sitting properly, and she has found it impacting her ability to sleep. - Consulted surgeon who suggested potential further imaging pending the outcome at the orthopedic clinic visit. - Additionally, she was informed about new-onset diabetes mellitus with a fasting blood sugar of 139 mg/dL. Hba1c is 6.7 Problem List - Post-surgical spine condition - Diabetes mellitus Patient Instructions - Control your diet, avoiding sweets, especially during Ramadan. - Begin checking your blood sugar with the machine to be collected from [facility]. - Check your blood sugar once daily in the morning and monitor that it stays below 150 mg/dL. - Understand that if diet is not controlled, medication might become necessary in the future. - Plan for re-evaluation in three months to reassess blood sugar levels.
--- OUTSIDE RECORDS SUMMARY | 2025-01-18 08:46 | XMS_ITS | Data Portability ---
Author Organization [employer] [employer] [facility] [employer] Address [address] [place] [address] Care Team Providers Care Air And Water Filler Name Role Phone HIM CCA OTHER BERNIENEHAL Primary Care Provider Assessment Encounter Date Assessment Date Assessment LastModified by Organization Details LastModified Time 11/13/2024 11/13/2024 I provided real -time medical direction via phone for this encounter, and was available for additional phone based assistance as needed. I have reviewed and agree with the Assessment and Plan as documented by the Slitter Scorer Cut Off Operator. We discussed the diagnostic uncertainty of home [...] to call 911- verbalized understanding of instruction [email or web address] Not available 11/13/2024 12:16:00 11/15/2024 11/15/2024 I provided real -time medical direction via phone for this encounter and was available for additional phone-based assistance as needed. I have reviewed and agree with the Assessment and Plan as documented by the Slitter Scorer Cut Off Operator. Patient given the opportunity to ask [...] has also been prescribed antibiotics by her chain pegger. She feels like her feet are swelling. Overall feels significantly unwell. Per deck hand on the scene, patient with mild to moderate distress. Increased work of breathing. Vitals as above. Wheezing auscultated per deck hand on the scene. Impression: Asthma with acute [...] workup and evaluation. Expect call made for [facility] ED. Allergies: Reviewed [place] [id number] Not available 11/15/2024 16:37:30 Plan of Treatment Reminders Order Date Submit Date Provider Last Modified By Organization Details Last Modified Time Details Appointments None recorded. Lab rapid SARS CoV 2 Ag, QL IA, [facility] [address] [place] [address], [id number], 17:17:28 [facility] flu [facility]A+B) [facility] [address] [place] [address], [id number], 17:17:29 rapid SARS CoV 2 Ag, QL IA, respiratory specimen 2024 025 [email or web address] [address], [phone], 12:15:13 rapid flu (A+B) 2024 025 [email or web address] 0 [facility], [address] [place] [address], [id number], 5 12:15:13 BMP, serum or plasma 2024 025 [email or web address] 0 [facility], [address] [place] [address], [id number], 5 12:15:13 rapid SARS CoV 2 Ag, QL IA, respiratory specimen 2024 025 [facility], [address] [place] [address], [id number], 5 20:47:11 rapid flu (A+B) 2024 025 [facility], [address] [place] [address], [id number], 5 20:46:53 Referral None recorded. Procedures None recorded. Surgeries None recorded. Imaging None recorded. Medication Orders prednisone 20 mg tablet 2024 025 [facility], [address] [place], [address], 5 13:15:57 methylpredn isolone sod succ (PF) 125 mg/2 mL solution for injection 2024 025 [email or web address] [facility], [address] [place], [address], 5 13:15:25 azithromyci n 500 mg tablet 2024 025 [email or web address] [facility], [address] [place], [address], 5 13:15:25 azithromyci n 250 mg tablet 2024 025 [facility], [address] [place], [address], 5 13:15:55 benzonatate 100 mg capsule 2024 025 [facility], [address] [place], [address], 5 13:15:52 ipratropium 0.5 mg-albutero l 3 mg (2.5 mg base)/3 mL nebulizatio n soln 2024 025 [email or web address] 0 [facility], [address] [place], [address], 5 12:15:13 prednisone 20 mg tablet 2024 025 [email or web address] 0 [facility], [address] [place], [address], 5 12:15:13 prednisone 20 mg tablet 2024 025 [facility], [address] [place], [address], 5 12:16:10 benzonatate 100 mg capsule 2024 025 [email or web address] 0 [facility], [address] [place], [address], 5 12:15:13 benzonatate 200 mg capsule 2024 025 [email or web address] 0 [facility], [address] [place], [address], 5 13:14:31 ipratropium 0.5 mg-albutero l 3 mg (2.5 mg base)/3 mL nebulizatio n soln 2024 025 [facility], [address] [place], [address], 5 12:16:07 lactated Ringers intravenous solution 2024 025 [email or web address] 0 [facility], [address] [place], [address], 5 12:15:13 ibuprofen 200 mg tablet 2024 025 [facility], [address] [place], [address], 5 16:37:55 prednisone 20 mg tablet 2024 025 [facility], [address] [place], [address], 5 16:37:55 prednisone 20 mg tablet 2024 025 [facility], [address] [place], [address], 5 16:39:40 azithromyci n 250 mg tablet 2024 025 [facility], [address] [place], [address], 5 16:37:55 azithromyci n 250 mg tablet 2024 025 [facility], [address] [place], [address], 5 16:39:37 guaifenesin ER 600 mg tablet, extended release 12 hr 2024 025 [facility], [address] [place], [address], 5 16:39:42 Patient TargetsNo targets recorded. Patient InstructionsNo instructions recorded. Reason for Referral None Reported. Results Created Date Observation Date Name Description Value Unit Range Abnormal Flag Note LastModifiedBy Organization Detail LastModifiedTime 11/13/19 25 11/13/2024 BMP, serum or plasm a BUN 25 Not Available [facility] [address], [address], 11/13/2024 11:39:21 11/13/19 25 11/13/2024 rapid flu (A+B) Flu negati ve Not Available [facility] ed [address] [place] [address], [id number], 11/13/2024 11:39:31 11/13/19 25 11/13/2024 rapid SARS CoV 2 Ag, QL IA, respi rator y speci men rapid SARS CoV 2 Ag, QL IA, respiratory specimen negati ve Not Available [facility] ed [address] [place] [address], [id number], 11/13/2024 11:39:30 Result Notes None recorded. Medical [...] tablet 1 tablet daily x 4 days active Not Available Not Available No t Available benzonatate 200 mg capsule active Not Available Not Available Not Available ondansetron HCl 4 mg tablet active Not Available Not Available Not Available prednisone 20 mg tablet Take 2 tablets every day by oral route after meal(s) for 4 days. active Not Available Not Available No t Available alendronate 70 mg tablet active Not Available [...] Updated DateTime 5 97 % 97 % 94187.6 4 g 108 /min 162.56 cm 18 /min 102.4 [degF] 133 mm[Hg] 84 mm[Hg] Not Available [facility] - production 5 16:23:19 Date Recorded Heart rate Oxygen saturation Oxygen saturation in Arterial blood by Pulse oximetry Body weight Body temperature Respiratory rate Systolic blood pressure Diastolic blood pressure Provider Name and Address Organization Details Last Updated DateTime 5 87 /min 96 % 96 % 80267.4 g 98.9 [degF] 18 /min 158 mm[Hg] 90 mm[Hg] Not Available [facility] - production 5 11:13:58 Date Recorded Oxygen saturation Oxygen saturation in Arterial blood by Pulse oximetry Body temperature Heart rate Respiratory rate Systolic blood pressure Diastolic blood pressure Provider Name and Address Organization Details Last Updated DateTime 98 % 98 % 98.1 [degF] 82 /min 18 /min 136 mm[Hg] 77 mm[Hg] Not Available [facility] 14:12:15 Date Recorded Heart rate Respiratory rate Oxygen saturation Oxygen saturation in Arterial blood by Pulse oximetry Body temperature Systolic blood pressure Diastolic blood pressure Provider Name and Address Organization Details Last Updated DateTime 5 84 /min 18 /min 96 % 96 % 97.9 [degF] 128 mm[Hg] 79 mm[Hg] Not Available [facility] 12:55:12 Date Recorded Oxygen saturation Oxygen saturation in Arterial blood by Pulse oximetry Body temperature Respiratory rate Heart rate Systolic blood pressure Diastolic blood pressure Provider Name and Address Organization Details Last Updated DateTime 98 % 98 % 98.9 [degF] 16 /min 74 /min 150 mm[Hg] 84 mm[Hg] Not Available [facility] 13:10:57 Social History None recorded. Functional Status None recorded. Mental Status None recorded. Family History Nothing Reported. Medical History No medical history recorded. Gynecological HistoryNo gynecological history recorded. Obstetrics History GPAL:G 0 P 0 0 0 0 Past Encounters Encounter ID Performer Location Encounter Start Date Encounter Closed Date Diagnosis/Indication Diagnosis SNOMED-CT Code Diagnosis ICD10 Code Diagnosis Note [id number] Magali Montana MD [facility] [address] [place] [id number] 11/22/2023 13:49:41 11/23/2023 10:14:11 Acute low back pain 775285352 M54.50 68 yo w/ chronic back pain [...] to 15mg toradol IM and help from deck hand to reschedule pain clinic appt as soon as possible. [id number] Emiliano Roy MD [facility] [address] [place] [id number] 04/06/2024 13:49:55 04/06/2024 20:33:11 Pain of left knee joint 4812912357 13509 M25.562 [id number] Liza Davey MD [facility] [address] [place] [id number] 05/25/2024 19:05:15 05/26/2024 11:41:59 Postoperative pain [id number] G89.18 [id number] Asya Prater MD [facility] [address] [place] [id number] 06/10/2024 15:12:21 06/11/2024 18:23:36 Dizziness 593749573 R42 As noted, we were called to see this patient regarding concerns of dizziness. Evaluation in the field was performed by my deck hand colleague, as noted above, I provided real-time [...] ly changes to mentation, chest pain, dysnea. [id number] Asya Prater MD [facility] [address] [place] [phone] 07/25/2024 19:57:02 08/21/2024 18:04:13 Pain of left knee joint [id number] 28181 M25.562 As noted, we were called to see this patient regarding concerns of knee pain. Evaluation in the field was performed by my deck hand colleague, as noted above, I provided real-time [...] changes to consciousn ess, chest pain, dyspnea. [id number] Jaron Sanderson MD [facility] [address] [place] [id number] 09/20/2024 23:04:04 09/21/2024 08:55:28 Neck pain [id number] M54.2 [id number] Asya Prater MD [facility] [address] [place] [id number] 10/22/2024 16:23:16 10/23/2024 00:19:26 Dyspnea 082172306 R06.00 As noted, we were called to see this patient regarding concerns of cough and dyspnea. 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 [...] to consciousn ess, chest pain, worsened breathing. [id number] Mirta Bustamante MD [facility] [address] [place] [id number] 11/13/2024 11:13:56 11/13/2024 21:25:11 Exacerbation of moderate persistent asthma [id number] J45.41 s/p viral illness- no fever- no [...] that is covered/re d flags reviewed Dehydration 80281264 E86 .0 pat. clinically dry / BUN 25- felt better after ivf [id number] Pricila Du MD [facility] [address] [place] [id number] 11/15/2024 13:51:01 11/15/2024 19:52:39 Dyspnea 686429897 R06.00 [id number] Jerman Peck MD [facility] [address] [place] [id number] 12/17/2024 12:55:10 12/18/2024 09:46:50 Exacerbation of moderate persistent asthma 535943169 J45.41 COVID/flu negative. IV Methylpred nisone x1 [...] to present for higher level of care. [id number] Aida Ramos MD [facility] [address] [place] [id number] 12/18/2024 13:10:54 12/18/2024 21:29:57 Dizziness 307756644 R42 Evaluation in the field was performed by my deck hand colleague, as noted above, I provided real-time direction and supervisio n for this visit. 69yo F endorsing fall with possible LOC last night iso new onset dizziness. Endorsing intermitte nt focal neurologic sx include L hand numbness, L sided weakness. on deck hand eval VS unremarkab le, exam without focal [...] Marks Member ID Guarantor Name 10/22/2024 1 [facility] - DOS ON OR AFTER 2023 - DUAL ELIGIBLE - HALF-WAY OPTIONS AND ONE CARE (MEDICARE REPLACEMENT/ADV ANTAGE - HMO) Cherry Cool [id number] Cherry Cool 11/13/2024 1 [facility] - DOS ON OR AFTER 2023 - DUAL ELIGIBLE - HALF-WAY OPTIONS AND ONE CARE (MEDICARE REPLACEMENT/ADV ANTAGE - HMO) Cherry Cool [id number] Cherry Cool 11/15/2024 1 [facility] - DOS ON OR AFTER 2023 - DUAL ELIGIBLE - HALF-WAY OPTIONS AND ONE CARE (MEDICARE REPLACEMENT/ADV ANTAGE - HMO) Cherry Garayjason [id number] Cherry Garayjason 12/17/2024 1 [facility] - DOS ON OR AFTER 2023 - DUAL ELIGIBLE - HALF-WAY OPTIONS AND ONE CARE (MEDICARE REPLACEMENT/ADV ANTAGE - HMO) Cherry Trevino Silvina [id number] Cherry Garayjason 12/18/2024 1 [facility] - DOS ON OR AFTER 2023 - DUAL ELIGIBLE - HALF-WAY OPTIONS AND ONE CARE (MEDICARE REPLACEMENT/ADV ANTAGE - HMO) Cherry Trevino Silvina [id number] Cherry Cool Notes Date Note Type Note [...] Chief Complaints: Cough, Fever/chillsPMH: Hypertension, Rheumatoid ArthritisComments: Volunteer Services Specialist verified the Pt.'s name//address and phone number. [...] S/S not improving - Wellness visit requested. Slitter Scorer Cut Off Operator Organization Information for Kieran Murrieta [employer] Legal Name: [facility] Address: [address] [place] [address], [address] [address], Radiology Equipment Servicer: Joesph Graham MD CLIA No.: [id number] Slitter Scorer Cut Off Operator POC Test Results from Janesmissy Kieran - [facility] Rapid COVID antigen (17:42:26) COVID: + Rapid influenza antigen (17:42:28) Flu: - ....................... ....................... ....................... ....................... ....................... ....................... ... Slitter Scorer Cut Off Operator Note From Kieran Murrieta: This 69-year-old female with a history including but not limited to hypertension, COPD and rheumatoid arthritis requested a visit today to address one week of cough producing yellow sputum, rhinorrhea, body aches and subjective fever. Patient states she [facility] night was not diagnosed with anything and did not have any medications prescribed. Patient states she is been using her albuterol nebulizer machine twice a day and is not been using any other uwbg-fyb-fyqgaga medications. Patient is requesting an antibiotic, prednisone, [...] extremity edema. Rapid COVID positive and flu negative.[facility] contacted and the patient was treated with [...] ....................... ....................... ....................... ....................... ....................... ....................... ... [facility] Consulted: Asya Prater ....................... ....................... ....................... ....................... ....................... ....................... ... Disposition: Reny Prater MD [address] [place] [address],[address], [place], [address], [facility] 10/22/2024 20:18:49 11/13/2024 text/html [facility] Nurse Triage Notes (Holli Miller - RN): Chief Complaints: Asthma, Breathing problems, Dehydration PMH: Hypertension, Rheumatoid Arthritis, Asthma PMH Reviewed at 11/13/2024: Allergies Reviewed at 11/13/2024:26 Comments: Increased difficulty breathing x4 days. Patient has a non-productive cough. Difficulty eating and drinking. Reports little water intake. Feels dehydrated. c/o weakness. Finished course of Augmentin and Azithromycin prescribed by hospital aprox 5 days ago. Used Neb treatment this morning. Speaking full sentences without trouble breathing- [place] Slitter Scorer Cut Off Operator Organization Information for Bruno Clarkedemetrice Legal Name: [employer] Address: [address] [place] [address] [place] [address], Radiology Equipment Servicer: Jared CHURCH No.: [id number] Slitter Scorer Cut Off Operator POC Test Results from Bruno Clarke iSTAT Chem8+ (11:35:00) Na: 137 mEq/L K: 4.5 mEq/L Cl: 106 mEq/L iCa: 1.15 mmol/L TCO2: 23 mmol/L Glu: 147 mg/dL BUN: 25 mg/dL Crea: 0.7 mg/dL Hct: 39 % Hb: 13.3 g/dL A Rapid COVID antigen (11:35:03) COVID: - Rapid influenza antigen (11:35:06) Flu: - ....................... ....................... ....................... ....................... ....................... ....................... ... Slitter Scorer Cut Off Operator Note From Bruno Clarke: Dispatched to the [...] soft non tender/distended, pupils PERRL, -edema/swelling, Afebrile. [facility] consulted. IV (20g R hand) with blood draw, BMP, 1L LR given over 1 hour with reassessment every 15 minutes, 200mg Benzonatate and 40mg Prednisone given PO, DuoNeb with good effect. [facility] updated. Scripts called into preferred pharmacy. All med rights confirmed prior to administration. Red flags discussed. ALL times are approx. ....................... ....................... ....................... ....................... ....................... ....................... ... [facility] Consulted: Mirta Bustamante ....................... ....................... ....................... ....................... ....................... ....................... ... Disposition: Fulfilled SEGMD: seen by our service 10/22- dx with covid - given azithro/ guaifenesin ER/prednisone- patient worsened and presented to ED 10/25- - as above Mirta Bustamante MD [address] [facility],[address], [place], [address] [email or web address] 11/13/2024 14:53:58 11/15/2024 text/html [facility] Nurse Triage [...] ....................... ....................... ....................... ....................... ....................... ....................... ... Slitter Scorer Cut Off Operator Note From Katheryn Ma: Sent to [...] to ED multiple times, been evaluated by chain pegger and [facility]. Pt states she has been [...] Duo neb administered. Pt reports little improvement. [facility] consulted and pt is advised she needs to be transported to ED for further eval since previous treatments don't appear to be working. Pt initially resists idea of going to ED, but then agrees to transport to [facility] ED. 911 called. Pt calms while waiting for ambulance. Pt care transferred to [facility] Dept. ....................... ....................... ....................... ....................... ....................... ....................... ... [facility] Consulted: Pricila Du ....................... ....................... ....................... ....................... ....................... ....................... ... Disposition: Fulfilled Pricila Du MD [address] [facility],[address], [place], [address], [address] - OM Latam 11/15/2024 16:37:46 12/17/2024 text/html [facility] Nurse Triage [...] Hypertension, Rheumatoid Arthritis, Asthma PMH Reviewed at 12/17/2024:48 Allergies Reviewed at 12/17/2024:48 Comments: Volunteer Services Specialist verified the Pt.'s name//address and phone number. [...] - Concerned expressed - Hx Bronchial asthma Slitter Scorer Cut Off Operator Organization Information for Kieran Murrieta Business Legal Name: [facility] Address: [address] [place] [address], [address] [address], Radiology Equipment Servicer: Joesph Graahm MD CLIA No.: [id number] Slitter Scorer Cut Off Operator POC Test Results from Kieran Murrieta Damien [place] Rapid influenza antigen (12:53:42) Flu: - Rapid COVID antigen (12:53:42) COVID: - ....................... ....................... ....................... ....................... ....................... ....................... ... Slitter Scorer Cut Off Operator Note From Kieran Murrieta: This 69-year-old female [...] questions and is agreeable to this plan. [facility] Lab Orders: rapid SARS CoV 2 Ag, QL IA, respiratory specimen: Performed rapid flu (A+B): Performed [facility] Medication Orders: methylprednisolone sod succ (PF) 125 mg/2 mL solution for injection: Administered Comment: 62 mg IVP azithromycin 500 mg tablet: Administered ....................... ....................... ....................... ....................... ....................... ....................... ... [facility] Consulted: Yefri Peck ....................... ....................... ....................... ....................... ....................... ....................... ... Disposition: Fulfilled Jerman Peck MD [address] [place] [address],[address], [place], [address], [facility] 12/17/2024 14:52:16 12/18/2024 text/html [facility] Nurse Triage Notes (Holli [...] Rheumatoid Arthritis, Asthma, Fibromyalgia PMH Reviewed at 12/18/2024: Allergies Reviewed at 12/18/2024: Comments: Patient reports [...] ....................... ....................... ....................... ....................... ....................... ....................... ... Slitter Scorer Cut Off Operator Note From Bruno Clarke: Dispatched to the [...] signs of trauma noted. Blood glucose 147. [facility] consulted. Pt was advised to seek a further work up in the ED. Pt agreed but stated her daughter was on her way and she would prefer she take her to the ED. Red flags discussed. ALL times are approx. ....................... ....................... ....................... ....................... ....................... ....................... ... [facility] Consulted: Aida Ramos ....................... ....................... ....................... ....................... ....................... ....................... ... Disposition: Fulfilled Aida Ramos MD [address] [facility],[address], [place], [address], [employer] OM Latam 12/18/2024 13:58:24 OBGyn Episode No OBEpisode recorded.
== END 2025-01-18 09:49 | disposition home or self-care (01) ==
PROVIDERS: PCP Internal Medicine; Visit Provider Internal Medicine
DX: E11.9 Type 2 diabetes mellitus without complications (principal)

== ENCOUNTER 2025-01-19 13:54 | Outpatient (REF) | payer OTHER, SELFPAY ==
--- OUTSIDE RECORDS SUMMARY | 2025-01-19 15:42 | XMS_ITS | Data Portability ---
Author Organization [employer], [place] Address [address] [place] [address] Care Team Providers Care Neurology Physician Assistant Name Role Phone HIM CCA OTHER BERNIENEHAL Primary Care Provider [phone] Assessment Encounter Date Assessment Date Assessment LastModified by Organization Details LastModified Time 11/13/2024 11/13/2024 I provided real -time medical direction via phone for this encounter, and was available for additional phone based assistance as needed. I have reviewed and agree with the Assessment and Plan as documented by the Fur Glazer. We discussed the diagnostic uncertainty of home [...] to call 911- verbalized understanding of instruction [email or web address] Not available 11/13/2024 12:16:00 11/15/2024 11/15/2024 I provided real -time medical direction via phone for this encounter and was available for additional phone-based assistance as needed. I have reviewed and agree with the Assessment and Plan as documented by the Fur Glazer. Patient given the opportunity to ask questions. [...] has also been prescribed antibiotics by her stylist assistant. She feels like her feet are swelling. Overall feels significantly unwell. Per casting house worker on the scene, patient with mild to moderate distress. Increased work of breathing. Vitals as above. Wheezing auscultated per casting house worker on the scene. Impression: Asthma with acute [...] workup and evaluation. Expect call made for [facility] ED. Allergies: Reviewed [place] [id number] Not available 11/15/2024 16:37:30 Plan of Treatment Reminders Order Date Submit Date Provider Last Modified By Organization Details Last Modified Time Details Appointments None recorded. Lab rapid SARS CoV 2 Ag, QL IA, respiratory specimen [address], [address] [place] [address] 5 17:17:28 rapid flu (A+B) [address], [id number] 5 17:17:29 rapid SARS CoV 2 Ag, QL IA, respiratory specimen 2024 025 [email or web address] [address], [phone] 5 12:15:13 rapid flu (A+B) 2024 025 [email or web address] [address], [address] 5 12:15:13 BMP, serum or plasma 2024 025 [email or web address] 0 [facility], [address] [place] [address], [id number] 5 12:15:13 rapid SARS CoV 2 Ag, QL IA, respiratory specimen 2024 025 [facility], [address] [place] [address], [id number] 5 20:47:11 rapid flu (A+B) 2024 025 [facility], [address] [place] [address], [id number] 5 20:46:53 Referral None recorded. Procedures None recorded. Surgeries None recorded. Imaging None recorded. Medication Orders prednisone 20 mg tablet 2024 025 [facility], [address] [place], [address], 5 13:15:57 methylpredn isolone sod succ (PF) 125 mg/2 mL solution for injection 2024 025 [email or web address] [facility], [address] [place], [address], 5 13:15:25 azithromyci n 500 mg tablet 2024 025 [email or web address] [facility], [address] [place], [address], 5 13:15:25 azithromyci n 250 mg tablet 2024 025 [facility], [address] [place], [address], 5 13:15:55 benzonatate 100 mg capsule 2024 025 [facility], [address] [place], [address], 5 13:15:52 ipratropium 0.5 mg-albutero l 3 mg (2.5 mg base)/3 mL nebulizatio n soln 2024 025 [email or web address] 0 [facility], [address] [place], [address], 5 12:15:13 prednisone 20 mg tablet 2024 025 [email or web address] 0 [facility], [address] [place], [address], 5 12:15:13 prednisone 20 mg tablet 2024 025 [facility], [address] [place], [address], 5 12:16:10 benzonatate 100 mg capsule 2024 025 [email or web address] 0 [facility], [address] [place], [address], 5 12:15:13 benzonatate 200 mg capsule 2024 025 [email or web address] 0 [facility], [address] [place], [address], 5 13:14:31 ipratropium 0.5 mg-albutero l 3 mg (2.5 mg base)/3 mL nebulizatio n soln 2024 025 [facility], [address] [place], [address], 5 12:16:07 lactated Ringers intravenous solution 2024 025 [email or web address] 0 [facility], [address] [place], [address], 5 12:15:13 ibuprofen 200 mg tablet 2024 025 [facility], [address] [place], [address], 5 16:37:55 prednisone 20 mg tablet 2024 025 [facility], [address] [place], [address], 5 16:37:55 prednisone 20 mg tablet 2024 025 [facility], [address] [place], [address], 5 16:39:40 azithromyci n 250 mg tablet 2024 025 [facility], [address] [place], [address], 5 16:37:55 azithromyci n 250 mg tablet 2024 025 [facility], [address] [place], [address], 5 16:39:37 guaifenesin ER 600 mg tablet, extended release 12 hr 2024 025 [facility], [address] [place], [address], 5 16:39:42 Patient TargetsNo targets recorded. Patient InstructionsNo instructions recorded. Reason for Referral None Reported. Results Created Date Observation Date Name Description Value Unit Range Abnormal Flag Note LastModifiedBy Organization Detail LastModifiedTime 11/13/19 25 11/13/2024 BMP, serum or plasm a BUN 25 Not Available [facility] - [facility] [address] [place] [address], [phone] 11/13/2024 11:39:21 11/13/19 25 11/13/2024 rapid flu (A+B) Flu negati ve Not Available [facility] [address] [place] [address], [id number] 11/13/2024 11:39:31 11/13/19 25 11/13/2024 rapid SARS CoV 2 Ag, QL IA, respi rator y speci men rapid SARS CoV 2 Ag, QL IA, respiratory specimen negati ve Not Available Main - [facility] ed [address] [place] [address], [id number] 11/13/2024 11:39:30 Result Notes None recorded. Medical [...] Updated DateTime 5 97 % 97 % 53595.6 4 g 108 /min 162.56 cm 18 /min 102.4 [degF] 133 mm[Hg] 84 mm[Hg] Not Available [employer] [facility] 5 16:23:19 Date Recorded Heart rate Oxygen saturation Oxygen saturation in Arterial blood by Pulse oximetry Body weight Body temperature Respiratory rate Systolic blood pressure Diastolic blood pressure Provider Name and Address Organization Details Last Updated DateTime 5 87 /min 96 % 96 % 05826.4 g 98.9 [degF] 18 /min 158 mm[Hg] 90 mm[Hg] Not Available [facility] 5 11:13:58 Date Recorded Oxygen saturation Oxygen saturation in Arterial blood by Pulse oximetry Body temperature Heart rate Respiratory rate Systolic blood pressure Diastolic blood pressure Provider Name and Address Organization Details Last Updated DateTime 5 98 % 98 % 98.1 [degF] 82 /min 18 /min 136 mm[Hg] 77 mm[Hg] Not Available [facility] 5 14:12:15 Date Recorded Heart rate Respiratory rate Oxygen saturation Oxygen saturation in Arterial blood by Pulse oximetry Body temperature Systolic blood pressure Diastolic blood pressure Provider Name and Address Organization Details Last Updated DateTime 5 84 /min 18 /min 96 % 96 % 97.9 [degF] 128 mm[Hg] 79 mm[Hg] Not Available [facility] 12:55:12 Date Recorded Oxygen saturation Oxygen saturation in Arterial blood by Pulse oximetry Body temperature Respiratory rate Heart rate Systolic blood pressure Diastolic blood pressure Provider Name and Address Organization Details Last Updated DateTime 98 % 98 % 98.9 [degF] 16 /min 74 /min 150 mm[Hg] 84 mm[Hg] Not Available [employer] [facility] [employer] 13:10:57 Social History None recorded. Functional Status None recorded. Mental Status None recorded. Family History Nothing Reported. Medical History No medical history recorded. Gynecological HistoryNo gynecological history recorded. Obstetrics History GPAL:G 0 P 0 0 0 0 Past Encounters Encounter ID Performer Location Encounter Start Date Encounter Closed Date Diagnosis/Indication Diagnosis SNOMED-CT Code Diagnosis ICD10 Code Diagnosis Note [id number] Magali Montana MD [facility] - [facility] [address] [place] [phone] 11/22/2023 13:49:41 11/23/2023 10:14:11 Acute low back pain 164682322 M54.50 68 yo w/ chronic back pain [...] to 15mg toradol IM and help from casting house worker to reschedule pain clinic appt as soon as possible. [id number] Emiliano Roy MD [facility] - [facility] [address] [place] [phone] 04/06/2024 13:49:55 04/06/2024 20:33:11 Pain of left knee joint [id number] 17418 M25.562 [id number] Liza Davey MD [facility] - [facility] [address] [place] [phone] 05/25/2024 19:05:15 05/26/2024 11:41:59 Postoperative pain 603978216 G89.18 [id number] Asya Prater MD Main - [facility] [address] [place] [phone] 06/10/2024 15:12:21 06/11/2024 18:23:36 Dizziness [id number] R42 As noted, we were called to see this patient regarding concerns of dizziness. Evaluation in the field was performed by my casting house worker colleague, as noted above, I provided real-time [...] ly changes to mentation, chest pain, dysnea. [id number] Asya Prater MD Main - [facility] [address] [place] [phone] 07/25/2024 19:57:02 08/21/2024 18:04:13 Pain of left knee joint [id number] 40101 M25.562 As noted, we were called to see this patient regarding concerns of knee pain. Evaluation in the field was performed by my casting house worker colleague, as noted above, I provided real-time [...] changes to consciousn ess, chest pain, dyspnea. [id number] Jaron Sanderson MD [facility] - [facility] [address] [place] [phone] 09/20/2024 23:04:04 09/21/2024 08:55:28 Neck pain 77252477 M54.2 [id number] Asya Prater MD [facility] - [facility] [address] [place] [phone] 10/22/2024 16:23:16 10/23/2024 00:19:26 Dyspnea 471045020 R06.00 As noted, we were called to see this patient regarding concerns of cough and dyspnea. 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 [...] to consciousn ess, chest pain, worsened breathing. [id number] Mirta Bustamante MD [facility] - [facility] [address] [place] [phone] 11/13/2024 11:13:56 11/13/2024 21:25:11 Exacerbation of moderate persistent asthma [id number] J45.41 s/p viral illness- no fever- no [...] that is covered/re d flags reviewed Dehydration 55203488 E86 .0 pat. clinically dry / BUN 25- felt better after ivf [id number] Pricila Du MD [facility] - [facility] [address] [place] [phone] 11/15/2024 13:51:01 11/15/2024 19:52:39 Dyspnea 926283803 R06.00 [id number] Jerman Peck MD Main - [facility] [address] [place] [phone] 12/17/2024 12:55:10 12/18/2024 09:46:50 Exacerbation of moderate persistent asthma 517124539 J45.41 COVID/flu negative. IV Methylpred nisone x1 now (will given 62.5mg, which is 1ml of solution) which is equivalent to slightly under 80mg of Prednisone ) as she prefers IV and states Methylpred nisone has helped in the past; for remainder will give 40mg daily. Has duoneb treatment at home. Will rx Z-pack as well as Tesnavin kowalski. Discussed red flag signs to present for higher level of care. [id number] Aida Ramos MD Main - [address] [phone] 12/18/2024 13:10:54 12/18/2024 21:29:57 Dizziness [id number] R42 Evaluation in the field was performed by my casting house worker colleague, as noted above, I provided real-time direction and supervisio n for this visit. 69yo F endorsing fall with possible LOC last night iso new onset dizziness. Endorsing intermitte nt focal neurologic sx include L hand numbness, L sided weakness. on casting house worker eval VS unremarkab le, exam without focal [...] Marks Member ID Guarantor Name 10/22/2024 1 500 [employer] - DOS ON OR AFTER 2023 - DUAL ELIGIBLE - CORRECTION OPTIONS AND ONE CARE (MEDICARE REPLACEMENT/ADV ANTAGE - HMO) Cherry Cool [id number] Cherry Cool 11/13/2024 1 500 [employer] - DOS ON OR AFTER 2023 - DUAL ELIGIBLE - CORRECTION OPTIONS AND ONE CARE (MEDICARE REPLACEMENT/ADV ANTAGE - HMO) Cherry Cool [id number] Cherry Cool 11/15/2024 1 [email or web address] - DOS ON OR AFTER 2023 - DUAL ELIGIBLE - CORRECTION OPTIONS AND ONE CARE (MEDICARE REPLACEMENT/ADV ANTAGE - HMO) Cherry Cool [id number] Cherry Cool 12/17/2024 1 [facility] [employer] - DOS ON OR AFTER 2023 - DUAL ELIGIBLE - CORRECTION OPTIONS AND ONE CARE (MEDICARE REPLACEMENT/ADV ANTAGE - HMO) Cherry Cool [id number] Cherry Trevino Silvina 12/18/2024 1 [facility] - DOS ON OR AFTER 2023 - DUAL ELIGIBLE - CORRECTION OPTIONS AND ONE CARE (MEDICARE REPLACEMENT/ADV ANTAGE - HMO) Cherry Garayjason [id number] Cherry Cool Notes Date Note Type Note [...] Chief Complaints: Cough, Fever/chillsPMH: Hypertension, Rheumatoid ArthritisComments: Front End Specialist verified the Pt.'s name//address and phone [...] S/S not improving - Wellness visit requested. Fur Glazer Organization Information for Kieran Murrieta Business Legal Name: [facility] Address: [address] [place] [address], Sound Engineering Technician: Joesph Graham MD CLIA No.: [id number] Fur Glazer POC Test Results from Kieran Murrieta Rapid COVID antigen (17:42:26) COVID: + Rapid influenza antigen (17:42:28) Flu: - ....................... ....................... ....................... ....................... ....................... ....................... ... Fur Glazer Note From Kieran Murrieta: This 69-year-old female with a history including but not limited to hypertension, COPD and rheumatoid arthritis requested a visit today to address one week of cough producing yellow sputum, rhinorrhea, body aches and subjective fever. Patient states she went to [facility] ED last night was not diagnosed with anything and did not have any medications prescribed. Patient states she is been using her albuterol nebulizer machine twice a day and is not been using any other nqbx-lqv-abbfafr medications. Patient is requesting an antibiotic, prednisone, [...] extremity edema. Rapid COVID positive and flu negative.[facility] contacted and the patient [...] ....................... ....................... ....................... ....................... ....................... ....................... ... [facility] Consulted: Asya Prater ....................... ....................... ....................... ....................... ....................... ....................... ... Disposition: Fulfilled Asya Prater MD [address] [place] [address],[address], [place], [phone], [employer] 10/22/2024 20:18:49 11/13/2024 text/html CRC Nurse Triage Notes (Holli Miller - RN): Chief Complaints: Asthma, Breathing problems, Dehydration PMH: Hypertension, Rheumatoid Arthritis, Asthma PMH Reviewed at 11/13/2024:26 Allergies Reviewed at 11/13/2024 09:26 Comments: Increased difficulty breathing x4 days. Patient has a non-productive cough. Difficulty eating and drinking. Reports little water intake. Feels dehydrated. c/o weakness. Finished course of Augmentin and Azithromycin prescribed by hospital aprox 5 days ago. Used Neb treatment this morning. Speaking full sentences without trouble breathing- NE Fur Glazer Organization Information for Bruno Clarke Damien Riggs Legal Name: [employer] Address: [address] [place] [address], Sound Engineering Technician: Jared Zapata MD CLIA No.: [id number] [employer] POC Test Results from Bruno Clarke [employer] iSTAT Chem8+ (11:35:00) Na: 137 mEq/L K: 4.5 mEq/L Cl: 106 mEq/L iCa: 1.15 mmol/L TCO2: 23 mmol/L Glu: 147 mg/dL BUN: 25 mg/dL Crea: 0.7 mg/dL Hct: 39 % Hb: 13.3 g/dL A Rapid COVID antigen (11:35:03) COVID: - Rapid influenza antigen (11:35:06) Flu: - ....................... ....................... ....................... ....................... ....................... ....................... ... Fur Glazer Note From Bruno Clarke: Dispatched to the [...] soft non tender/distended, pupils PERRL, -edema/swelling, Afebrile. [facility] consulted. IV (20g R hand) with blood draw, BMP, 1L LR given over 1 hour with reassessment every 15 minutes, 200mg Benzonatate and 40mg Prednisone given PO, DuoNeb with good effect. [facility] updated. Scripts called into preferred pharmacy. All med rights confirmed prior to administration. Red flags discussed. ALL times are approx. ....................... ....................... ....................... ....................... ....................... ....................... ... [facility] Consulted: Mirta Bustamante ....................... ....................... ....................... ....................... ....................... ....................... ... Disposition: Fulfilled SEGMD: seen by our service 10/22- dx with covid - given azithro/ guaifenesin ER/prednisone- patient worsened and presented to ED 10/25- - as above Mirta Bustamante MD [address] [place] [address],[address], [place], [address], [employer] 11/13/2024 14:53:58 11/15/2024 text/html CRC Nurse Triage [...] ....................... ....................... ....................... ....................... ....................... ....................... ... Fur Glazer Note From Katheryn Ma: Sent to a [...] to ED multiple times, been evaluated by stylist assistant and [facility]. Pt states she has been [...] Duo neb administered. Pt reports little improvement. [facility] consulted and pt is advised she needs to be transported to ED for further eval since previous treatments don't appear to be working. Pt initially resists idea of going to ED, but then agrees to transport to [facility] ED. 911 called. Pt calms while waiting for ambulance. Pt care transferred to [facility] Dept. ....................... ....................... ....................... ....................... ....................... ....................... ... [facility] Consulted: Pricila Du ....................... ....................... ....................... ....................... ....................... ....................... ... Disposition: Fulfilled Pricila Du MD [address] [facility],[address], [place], [address], [employer] 11/15/2024 16:37:46 12/17/2024 text/html CRC Nurse Triage [...] Rheumatoid Arthritis, Asthma PMH Reviewed at 12/17/2024 Allergies Reviewed at 12/17/2024 Comments: Front End Specialist verified the Pt.'s name//address and phone [...] - Concerned expressed - Hx Bronchial asthma Fur Glazer Organization Information for Kieran Murrieta Business Legal Name: [facility] Address: [address] [place] [address], Sound Engineering Technician: Joesph Graham MD IA No.: [id number] [employer] Gl[facility] POC Test Results from Kieran Murrieta [employer] Rapid influenza antigen (12:53:42) Flu: - Rapid COVID antigen (12:53:42) COVID: - ....................... ....................... ....................... ....................... ....................... ....................... ... Fur Glazer Note From Kieran Murrieta: This 69-year-old female [...] questions and is agreeable to this plan. [facility] Lab Orders: rapid SARS CoV 2 Ag, QL IA, respiratory specimen: Performed rapid flu (A+B): Performed [facility] Medication Orders: methylprednisolone sod succ (PF) 125 mg/2 mL solution for injection: Administered Comment: 62 mg IVP azithromycin 500 mg tablet: Administered ....................... ....................... ....................... ....................... ....................... ....................... ... [facility] Consulted: Yefri Peck...................... ....................... ....................... ....................... ....................... ....................... ... Disposition: Fulfilled Jerman Peck MD [address] [place] [address],[address], [place], [address], [employer] 12/17/2024 14:52:16 12/18/2024 text/html CRC Nurse Triage [...] Arthritis, Asthma, Fibromyalgia PMH Reviewed at 12/18/2024 - 10: Allergies Reviewed at 12/18/2024 - 10:26 Comments: Patient reports dizzy started during the [...] ....................... ....................... ....................... ....................... ....................... ....................... ... Fur Glazer Note From Bruno Clarke: Dispatched to the [...] signs of trauma noted. Blood glucose 147. C consulted. Pt was advised to seek a further work up in the ED. Pt agreed but stated her daughter was on her way and she would prefer she take her to the ED. Red flags discussed. ALL times are approx. ....................... ....................... ....................... ....................... ....................... ....................... ... [facility] Consulted: Aida Ramos ....................... ....................... ....................... ....................... ....................... ....................... ... Disposition: Fulfilled Aida Ramos MD [address] [facility],[address], [place], [address], [employer] 12/18/2024 13:58:24 OBGyn Episode No OBEpisode recorded.
== END 2025-01-19 13:55 | disposition home or self-care (01) ==
LOC: HO.HOSX 13:54
PROVIDERS: Visit Provider Physician Assistant
DX: Z13.89 Encounter for screening for other disorder (principal)

== ENCOUNTER 2025-02-25 10:36 | Outpatient (REF) | payer OTHER, SELFPAY | END 2025-02-25 10:37 | disposition home or self-care (01) | LOC: HO.HOSX 10:36 | DX: Z13.89 Encounter for screening for other disorder (principal) ==

== ENCOUNTER 2025-02-26 13:55 | Outpatient (AMB) | payer OTHER, SELFPAY ==
[2025-02-26 14:00] VITALS: BMI 37.5
--- NOTE | 2025-02-26 14:00 | MHC.OFFVIS ---
Vital Signs 02/26/25 14:00 Height 5 ft 1 in Weight 198 lb 4 oz BMI 37.5 Intake Visit Reasons: New prob- Right knee pain Intake Note: Cherry is a 69 year old male who presents today as a new patient for evaluation of right knee pain. Patient states her pain began after having back surgery last April. Patient reports severe pain on the medial aspect of the right knee. Denies numbness or tingling. Patient states she has been to the ER multiple times, given Dilaudid by IV. She is not taking any pain medications currently, allergic to Tylenol and Ibuprofen. Patient is using a walker with wheels as she is unable to stand on her feet for longer than 7 minutes, this is all post-operatively. Patient is also wearing knee braces for support. Patient is very agitated and overwhelmed with her current status. Denies previous injuries or surgeries to right knee. Allergies acetaminophen [From Tylenol] Allergy (Severe, Verified 02/26/25 14:13) Shortness of Breath ibuprofen Allergy (Severe, Verified 02/26/25 14:13) shortness of breath canned food Allergy (Intermediate, Uncoded 02/26/25 14:13) Shortness of Breath HPI HPI New prob- Right knee pain: Details: Cherry is a 69 year old male who presents today as a new patient for evaluation of right knee pain. Patient states her pain began after having back surgery last April. Patient reports severe pain on the medial aspect of the right knee. Denies numbness or tingling. Patient states she has been to the ER multiple times, given Dilaudid by IV. She is not taking any pain medications currently, allergic to Tylenol and Ibuprofen. Patient is using a walker with wheels as she is unable to stand on her feet for longer than 7 minutes, this is all post-operatively. Patient is also wearing knee braces for support. Patient is very agitated and overwhelmed with her current status. Patient states that ?I know this is not from my knee, I know this is from my back despite the fact that most of her pain appears to be in her knee. Denies previous injuries or surgeries to right knee. [facility] Medical History Cognitive disorder Hand numbness GERD (gastroesophageal reflux disease) Cold intolerance Rheumatoid arthritis Lumbar spinal stenosis RAÚL (obstructive sleep apnea) Trigger finger Sleep disorder breathing Latent tuberculosis Cough Asthma Chronic pain syndrome Myofascial muscle pain Osteoarthritis Fibromyalgia HTN (hypertension) Anxiety Surgical History Hx of ovarian cystectomy Hx of cervical discectomy History of lumbar surgery Family History Father Diabetes Mother Acute arthritis Other Mental health disorder Social History Household Members: None Housing: Apartment Are you a primary transitions rn care coordinator to a significant other at home: No Do you presently have visiting nurse or other home services: Yes ([employer].) Alcohol intake: never Comment: COUNTS CORRECT Patient Tobacco Use Status: Never used Tobacco e-Cigarette/Vaping Use: Never Used Advance Directives Date on File: 02/26/22 service: No Current occupational status: unemployed Cognitive needs: No Hearing needs: No Vision needs: No Review of Systems Const All systems reviewed & are unremarkable except as noted in HPI and below Physical Exam Vital Signs: BMI result Body Mass Index 37.5 Extrem Other: Patient's right knee swollen to inspection No erythema, ecchymosis noted No lacerations, abrasions, open areas No evidence of infection Patient reports tenderness to palpation of the medial joint line of the right knee No tenderness to palpation of the lateral joint line, posterior knee, quad tendon, patellar tendon Patient is able to flex the knee to approximately 110 degrees in his able to extend fully and without difficulty Distal sensation intact Capillary refill brisk Office Procedures AMB Joint Injection/Aspiration Joint Injection/Aspiration Primary Site: right knee Injected: 40 mg of, DepoMedrol, with 8 mL of and 1% plain lidocaine Approach Used: anterolateral Procedure: The patient tolerated the procedure well and there was some relief with the local anesthesia Coding 66685 - Large joint Procedure code (CPT) selection complete Results Reviewed Results Reviewed: X-rays obtained in the office today and independently reviewed by me, Wayne Jenkins PA-C, demonstrate mild to moderate degenerative changes of the left knee with moderate to severe degenerative changes noted of the right knee, worse in the medial compartment bilaterally. Assessment & Plan Assessment & Plan (1) Osteoarthritis of knees, bilateral: Code(s): M17.0 - Bilateral primary osteoarthritis of knee Category: Medical (2) Trigger finger, right middle finger: Code(s): M65.331 - Trigger finger, right middle finger Category: Medical Plan 1. Osteoarthritis of bilateral knees Patient is educated about this condition Patient is educated about the treatment options available Patient would like to proceed with steroid injection of the right knee at this time The risks and benefits of a steroid injection including but not limited to risk of damage to blood vessels, nerves, tendons, infection, skin bleaching, failure to improve symptoms, increased pain, and possible need for further injections or other intervention were discussed with the patient and the patient wishes to proceed with the steroid injection. Once consent was obtained, I aseptically prepped the area over the anterolateral joint line of the right knee. I then injected the area over the lateral epicondyle with a combination of 40 mg of dexamethasone and 8 mL of 1% lidocaine. The patient tolerated the procedure well with no complications. As patient is diabetic, patient is educated that steroid injections can cause temporary increase in blood sugar, so she should keep a close eye on her blood sugar readings If the patient continues to experience symptoms over the following few weeks or months, they can make an appointment to return and discuss alternative treatment measures, such as physical therapy. As the patient does report that she does still have some very significant symptoms in her back that radiates down both of her legs, I have advised that she book a follow-up with Dr. Pulido postoperatively to discuss her ongoing symptoms Follow-up prn Orders: Orders XR knee RT 3V Today M17.11 - Unilateral primary osteoarthritis, right knee Coding Level of Care Code Est Pt Level 3 (02075) Diagnoses Osteoarthritis of knees, bilateral M17.0 Trigger finger, right middle finger M65.331 CPT Codes Coding - 18500 Large joint: 60153 - Large joint ([id number])
--- OUTSIDE RECORDS SUMMARY | 2025-02-26 14:13 | XMS_ITS | Data Portability ---
Author Organization [employer], [place] [employer] Address [address] [place] [address] Care Team Providers Care Shipping And Receiving Assistant Name Role Phone HIM CCA OTHER BERNIENEHAL Primary Care Provider Assessment Encounter Date Assessment Date Assessment LastModified by Organization Details LastModified Time 11/13/2024 11/13/2024 I provided real -time medical direction via phone for this encounter, and was available for additional phone based assistance as needed. I have reviewed and agree with the Assessment and Plan as documented by the Sawmill Equipment Operator. We discussed the diagnostic uncertainty of [...] to call 911- verbalized understanding of instruction [email or web address] Not available 11/13/2024 12:16:00 11/15/2024 11/15/2024 I provided real -time medical direction via phone for this encounter and was available for additional phone-based assistance as needed. I have reviewed and agree with the Assessment and Plan as documented by the Sawmill Equipment Operator. Patient given the opportunity to ask [...] has also been prescribed antibiotics by her lawn mower. She feels like her feet are swelling. Overall feels significantly unwell. Per clerical car checker on the scene, patient with mild to moderate distress. Increased work of breathing. Vitals as above. Wheezing auscultated per clerical car checker on the scene. Impression: Asthma with acute [...] workup and evaluation. Expect call made for [facility] ED. Allergies: Reviewed [email or web address] Not available 11/15/2024 16:37:30 Plan of Treatment Reminders Order Date Submit Date Provider Last Modified By Organization Details Last Modified Time Details Appointments None recorded. Lab rapid SARS CoV 2 Ag, QL IA, respiratory specimen [address], [address] [place] [address] 5 17:17:28 rapid flu (A+B) [address], [id number] 5 17:17:29 rapid SARS CoV 2 Ag, QL IA, respiratory specimen 2024 025 [email or web address], [phone] 5 12:15:13 rapid flu (A+B) 2024 025 [email or web address], [address] 5 12:15:13 BMP, serum or plasma 2024 025 [email or web address] 0 [facility], [address] [place] [address], [phone] 5 12:15:13 rapid SARS CoV 2 Ag, QL IA, respiratory specimen 2024 025 [facility], [address] [place] [address], [phone] 5 20:47:11 rapid flu (A+B) 2024 025 [facility], [address] [place] [address], [phone] 5 20:46:53 Referral None recorded. Procedures None recorded. Surgeries None recorded. Imaging None recorded. Medication Orders prednisone 20 mg tablet 2024 025 [place], [address] [place], [address], 5 13:15:57 methylpredn isolone sod succ (PF) 125 mg/2 mL solution for injection 2024 025 [email or web address] [facility], [address] [place], [address], 5 13:15:25 azithromyci n 500 mg tablet 2024 025 [email or web address] Bassam [facility], [address] [place], [address], 5 13:15:25 azithromyci n 250 mg tablet 2024 025 [place] [place], [address] [place], [address], 5 13:15:55 benzonatate 100 mg capsule 2024 025 [place] [place], [address] [place], [address], 5 13:15:52 ipratropium 0.5 mg-albutero l 3 mg (2.5 mg base)/3 mL nebulizatio n soln 2024 025 [email or web address] 0 [facility], [address] [place], [address], 5 12:15:13 prednisone 20 mg tablet 2024 025 [email or web address] 0 [facility], [address] [place], [address], 5 12:15:13 prednisone 20 mg tablet 2024 025 [facility], [address] [place], [address], 5 12:16:10 benzonatate 100 mg capsule 2024 025 [email or web address] 0 [facility], [address] [place], [address], 5 12:15:13 benzonatate 200 mg capsule 2024 025 [email or web address] 0 [facility], [address] [place], [address], 5 13:14:31 ipratropium 0.5 mg-albutero l 3 mg (2.5 mg base)/3 mL nebulizatio n soln 2024 025 [facility], [address] [place], [address], 5 12:16:07 lactated Ringers intravenous solution 2024 025 [email or web address] 0 [facility], [address] [place], [address], 5 12:15:13 ibuprofen 200 mg tablet 2024 025 [facility], [address] [place], [address], 5 16:37:55 prednisone 20 mg tablet 2024 025 [facility], [address] [place], [address], 5 16:37:55 prednisone 20 mg tablet 2024 025 [facility], [address] [place], [address], 5 16:39:40 azithromyci n 250 mg tablet 2024 025 [facility], [address] [place], [address], 5 16:37:55 azithromyci n 250 mg tablet 2024 025 [facility], [address] [place], [address], 5 16:39:37 guaifenesin ER 600 mg tablet, extended release 12 hr 2024 025 [facility], [address] [place], [address], 5 16:39:42 Patient TargetsNo targets recorded. Patient InstructionsNo instructions recorded. Reason for Referral None Reported. Results Created Date Observation Date Name Description Value Unit Range Abnormal Flag Note LastModifiedBy Organization Detail LastModifiedTime 11/13/19 25 11/13/2024 BMP, serum or plasm a BUN 25 Not Available [facility] [address] [place] [address], [phone] 11/13/2024 11:39:21 11/13/19 25 11/13/2024 rapid flu (A+B) Flu negati ve Not Available [facility] [address] [place] [address], [phone] 11/13/2024 11:39:31 11/13/19 25 11/13/2024 rapid SARS CoV 2 Ag, QL IA, respi rator y speci men rapid SARS CoV 2 Ag, QL IA, respiratory specimen negati ve Not Available Main - [facility] ed [address] [place] [address], [phone] 11/13/2024 11:39:30 Result Notes None recorded. Medical [...] Updated DateTime 5 97 % 97 % 36277.6 4 g 108 /min 162.56 cm 18 /min 102.4 [degF] 133 mm[Hg] 84 mm[Hg] Not Available [employer] 5 16:23:19 Date Recorded Heart rate Oxygen saturation Oxygen saturation in Arterial blood by Pulse oximetry Body weight Body temperature Respiratory rate Systolic blood pressure Diastolic blood pressure Provider Name and Address Organization Details Last Updated DateTime 5 87 /min 96 % 96 % 87378.4 g 98.9 [degF] 18 /min 158 mm[Hg] 90 mm[Hg] Not Available [employer] 5 11:13:58 Date Recorded Oxygen saturation Oxygen saturation in Arterial blood by Pulse oximetry Body temperature Heart rate Respiratory rate Systolic blood pressure Diastolic blood pressure Provider Name and Address Organization Details Last Updated DateTime 5 98 % 98 % 98.1 [degF] 82 /min 18 /min 136 mm[Hg] 77 mm[Hg] Not Available [employer] 5 14:12:15 Date Recorded Heart rate Respiratory [...] /min 150 mm[Hg] 84 mm[Hg] Not Available [employer] - production 13:10:57 Social History None recorded. Functional Status None recorded. Mental Status None recorded. Family History Nothing Reported. Medical History No medical history recorded. Gynecological HistoryNo gynecological history recorded. Obstetrics History GPAL:G 0 P 0 0 0 0 Past Encounters Encounter ID Performer Location Encounter Start Date Encounter Closed Date Diagnosis/Indication Diagnosis SNOMED-CT Code Diagnosis ICD10 Code Diagnosis Note [id number] Magali Montana MD [facility] - [facility] [address] [place] [id number] 11/22/2023 13:49:41 11/23/2023 10:14:11 Acute low back pain 975819430 M54.50 68 yo w/ chronic back pain [...] to 15mg toradol IM and help from clerical car checker to reschedule pain clinic appt as soon as possible. [id number] Emiliano Roy MD [facility] - [facility] [address] [place] [id number] 04/06/2024 13:49:55 04/06/2024 20:33:11 Pain of left knee joint 2477795509 40811 M25.562 [id number] Liza Davey MD [facility] - [facility] [address] [place] [id number] 05/25/2024 19:05:15 05/26/2024 11:41:59 Postoperative pain 675157996 G89.18 [id number] Asya Prater MD Main - [facility] [address] [place] [id number] 06/10/2024 15:12:21 06/11/2024 18:23:36 Dizziness 396074156 R42 As noted, we were called to see this patient regarding concerns of dizziness. Evaluation in the field was performed by my clerical car checker colleague, as noted above, I provided real-time [...] ly changes to mentation, chest pain, dysnea. [id number] Asya Prater MD [facility] [address] [place] [phone] 07/25/2024 19:57:02 08/21/2024 18:04:13 Pain of left knee joint [id number] 55204 M25.562 As noted, we were called to see this patient regarding concerns of knee pain. Evaluation in the field was performed by my clerical car checker colleague, as noted above, I provided real-time [...] changes to consciousn ess, chest pain, dyspnea. [id number] Jaron Sanderson MD [facility] [address] [place] [phone] 09/20/2024 23:04:04 09/21/2024 08:55:28 Neck pain [id number] M54.2 [id number] Asya Prater MD [facility] [address] [place] [phone] 10/22/2024 16:23:16 10/23/2024 00:19:26 Dyspnea 007352919 R06.00 As noted, we were called to see this patient regarding concerns of cough and dyspnea. Evaluation in the field was performed by my clerical car checker colleague, as noted above, I provided real-time [...] prednisone 20mg x 5 days for possible asthma/SKIP HOIST OPERATOR D flare, as well as guafenesin [...] to consciousn ess, chest pain, worsened breathing. [id number] Mirta Bustamante MD [facility] [address] [place] [phone] 11/13/2024 11:13:56 11/13/2024 21:25:11 Exacerbation of moderate persistent asthma [id number] J45.41 s/p viral illness- no fever- no [...] that is covered/re d flags reviewed Dehydration 57883998 E86 .0 pat. clinically dry / BUN 25- felt better after ivf [id number] Pricila Du MD [facility] [address] [place] [phone] 11/15/2024 13:51:01 11/15/2024 19:52:39 Dyspnea 436902295 R06.00 [id number] Jerman Peck MD Main - [facility] [address] [place] [phone] 12/17/2024 12:55:10 12/18/2024 09:46:50 Exacerbation of moderate persistent asthma 605504820 J45.41 COVID/flu negative. IV Methylpred nisone x1 [...] to present for higher level of care. [id number] [facility] [address] [place] [phone] 12/18/2024 13:10:54 12/18/2024 21:29:57 Dizziness 039611333 R42 Evaluation in the field was performed by my clerical car checker colleague, as noted above, I provided real-time direction and supervisio n for this visit. 69yo F endorsing fall with possible LOC last night iso new onset dizziness. Endorsing intermitte nt focal neurologic sx include L hand numbness, L sided weakness. on clerical car checker eval VS unremarkab le, exam without focal [...] Recorded Advance Directives Directive None Recorded Payers Insurance Date Sequence Insurance Name Policy Number Policy Marks Covered Member ID Marks Member ID Guarantor Name 12/17/2024 1 [facility] - DOS ON OR AFTER 2023 - DUAL ELIGIBLE - JAIL OPTIONS AND ONE CARE (MEDICARE REPLACEMENT/ADV ANTAGE - HMO) Cherry Cool [id number] Cherry Cool Notes Date Note Type Note [...] Chief Complaints: Cough, Fever/chillsPMH: Hypertension, Rheumatoid ArthritisComments: Metalworking Specialist verified the Pt.'s name//address and phone [...] S/S not improving - Wellness visit requested. Sawmill Equipment Operator Organization Information for Kieran Murrieta Business Legal Name: [facility] Address: [address] [place] [address], [place] [address], Auto Crane Driver: Joesph Graham MD [facility] No.: [id number] Sawmill Equipment Operator POC Test Results from Kieran Murrieta Rapid COVID antigen (17:42:26) COVID: + Rapid influenza antigen (17:42:28) Flu: - ....................... ....................... ....................... ....................... ....................... ....................... ... Sawmill Equipment Operator Note From Kieran Murrieta: This 69-year-old female with a history including but not limited to hypertension, COPD and rheumatoid arthritis requested a visit today to address one week of cough producing yellow sputum, rhinorrhea, body aches and subjective fever. Patient states she went to [facility] last night was not diagnosed with anything and did not have any medications prescribed. Patient states she is been using her albuterol nebulizer machine twice a day and is not been using any other wyns-khw-ndjhckw medications. Patient is requesting an antibiotic, prednisone, [...] extremity edema. Rapid COVID positive and flu negative.[facility] [place] and the patient was treated with [...] ....................... ....................... ....................... ....................... ....................... ....................... ... [facility] Consulted: Asya Prater ....................... ....................... ....................... ....................... ....................... ....................... ... Disposition: Reny Prater MD [address] [facility],[address], [place], [address], [employer] 10/22/2024 20:18:49 11/13/2024 text/html CRC Nurse Triage [...] Speaking full sentences without trouble breathing- [place] Sawmill Equipment Operator Organization Information for Bruno Clarke Legal Name: [employer] Address: [address] [place] [address], Auto Crane Driver: Jared Zapata MD CLIA No.: [id number] Sawmill Equipment Operator POC Test Results from Bruno Clarke iSTAT Chem8+ (11:35:00) Na: 137 mEq/L K: 4.5 mEq/L Cl: 106 mEq/L iCa: 1.15 mmol/L TCO2: 23 mmol/L Glu: 147 mg/dL BUN: 25 mg/dL Crea: 0.7 mg/dL Hct: 39 % Hb: 13.3 g/dL A Rapid COVID antigen (11:35:03) COVID: - Rapid influenza antigen (11:35:06) Flu: - ....................... ....................... ....................... ....................... ....................... ....................... ... Sawmill Equipment Operator Note From Bruno Clarke: Dispatched to [...] soft non tender/distended, pupils PERRL, -edema/swelling, Afebrile. [facility] consulted. IV (20g R hand) with blood draw, BMP, 1L LR given over 1 hour with reassessment every 15 minutes, 200mg Benzonatate and 40mg Prednisone given PO, DuoNeb with good effect. [facility] updated. Scripts called into preferred pharmacy. All med rights confirmed prior to administration. Red flags discussed. ALL times are approx. ....................... ....................... ....................... ....................... ....................... ....................... ... [facility] Consulted: Mirta Bustamante ....................... ....................... ....................... ....................... ....................... ....................... ... Disposition: Fulfilled SEGMD: seen by our service 10/22- dx with covid - given azithro/ guaifenesin ER/prednisone- patient worsened and presented to ED 10/25- - as above Mirta Bustamante MD [address] [place] [address],[address], [place], [address], [facility] [employer] 11/13/2024 14:53:58 11/15/2024 text/html CRC Nurse Triage Notes (Holli Miller - RN): Reason For Request: Pt is dehydrated and having a hard time breathing Chief Complaints: Dehydration, Breathing problems PMH: Hypertension, Rheumatoid Arthritis, Asthma PMH Reviewed at 11/15/2024 - 12:09 Allergies Reviewed at 11/15/2024 12:09 Comments: Has not had water for [...] ....................... ....................... ....................... ....................... ....................... ....................... ... Sawmill Equipment Operator Note From Katheryn Ma: Sent to [...] to ED multiple times, been evaluated by lawn mower and [facility]. Pt states she has been [...] Duo neb administered. Pt reports little improvement. [facility] consulted and pt is advised she needs to be transported to ED for further eval since previous treatments don't appear to be working. Pt initially resists idea of going to ED, but then agrees to transport to [facility] ED. 911 called. Pt calms while waiting for ambulance. Pt care transferred to [facility]. ....................... ....................... ....................... ....................... ....................... ....................... ... [facility] Consulted: Pricila Du ....................... ....................... ....................... ....................... ....................... ....................... ... Disposition: Fulfilled Pricila Du MD [address] [place] [address],[address], [place], [address], [employer] 11/15/2024 16:37:46 12/17/2024 text/html CRC Nurse Triage [...] PMH Reviewed at 12/17/2024:48 Allergies Reviewed at 12/17/2024 10:48 Comments: Metalworking Specialist verified the Pt.'s name//address and phone [...] - Concerned expressed - Hx Bronchial asthma Sawmill Equipment Operator Organization Information for Kieran Murrieta Business Legal Name: [facility] Address: [address] [place] [address], [place] [address], Auto Crane Driver: Joesph CHURCH No.: [id number] Sawmill Equipment Operator POC Test Results from Kieran Murrieta Rapid influenza antigen (12:53:42) Flu: - Rapid COVID antigen (12:53:42) COVID: - ....................... ....................... ....................... ....................... ....................... ....................... ... Sawmill Equipment Operator Note From Kieran Murrieta: This 69-year-old [...] questions and is agreeable to this plan. [facility] Lab Orders: rapid SARS CoV 2 Ag, QL IA, respiratory specimen: Performed rapid flu (A+B): Performed [facility] Medication Orders: methylprednisolone sod succ (PF) 125 mg/2 mL solution for injection: Administered Comment: 62 mg IVP azithromycin 500 mg tablet: Administered ....................... ....................... ....................... ....................... ....................... ....................... ... [facility] Consulted: Yefri Peck ....................... ....................... ....................... ....................... ....................... ....................... ... Disposition: Fulfilled Jerman Peck MD [address] [facility],[address], [place], [address], [place] [employer] 12/17/2024 14:52:16 12/18/2024 text/html CRC Nurse Triage [...] ....................... ....................... ....................... ....................... ....................... ....................... ... Sawmill Equipment Operator Note From Bruno Clarke: Dispatched to [...] signs of trauma noted. Blood glucose 147. [facility] consulted. Pt was advised to seek a further work up in the ED. Pt agreed but stated her daughter was on her way and she would prefer she take her to the ED. Red flags discussed. ALL times are approx. ....................... ....................... ....................... ....................... ....................... ....................... ... [facility] Consulted: Aida Ramos ....................... ....................... ....................... ....................... ....................... ....................... ... Disposition: Fulfilled Aida Ramos MD [address] [facility],[address], [place], [address], [employer], [employer] 12/18/2024 13:58:24 OBGyn Episode No OBEpisode recorded.
== END 2025-02-26 15:15 | disposition home or self-care (01) ==
LOC: HO.HOS 13:56
PROVIDERS: PCP Internal Medicine
DX: M17.0 Bilateral primary osteoarthritis of knee (principal); M65.331 Trigger finger, right middle finger
CPT/HCPCS: 20610; 99213

== ENCOUNTER 2025-02-26 13:55 | Outpatient (REF) | payer OTHER, SELFPAY ==
--- NOTE | ~2025-02-26 | XR_ITS ---
EXAMINATION: XR KNEE, RIGHT CLINICAL INFORMATION: M17.11 - Unilateral primary osteoarthritis, right knee COMPARISON: None available. TECHNIQUE: AP view of standing position both knees and oblique and sunrise views of the right knee. FINDINGS: Joint space narrowing involving the medial and to a lesser extent lateral compartments of both knees more pronounced on the right knee. There is chondrocalcinosis in the medial and lateral compartment of the right knee. No acute cortical disruption or malalignment. Small osteophyte in the posterior superior and posterior inferior patella. Small suprapatellar bursa joint effusion. No lytic or blastic lesions. XR/XR knee RT 3V IMPRESSION: Bicompartmental osteoarthrosis involving mostly the medial compartment, both knees and more pronounced on the right knee. Consider CPPD. Electronically signed by: Golden Rosado MD 02/26/2025 02:24 PM EDT
== END 2025-02-26 13:56 | disposition home or self-care (01) ==
LOC: HO.HOSX 13:55
PROVIDERS: PCP Internal Medicine
DX: M17.11 Unilateral primary osteoarthritis, right knee (principal); M17.0 Bilateral primary osteoarthritis of knee; M65.331 Trigger finger, right middle finger
CPT/HCPCS: 20610; 73562; 99212; J1010; J2003

== ENCOUNTER → 2025-02-26 13:58 | Outpatient (BNV) | payer OTHER, SELFPAY | PROVIDERS: PCP Internal Medicine; Visit Provider Radiology Diagnostic Radiology | DX: M17.0 Bilateral primary osteoarthritis of knee (principal) | CPT/HCPCS: 73562 ==

== ENCOUNTER 2025-03-28 13:01 | Outpatient (REF) | payer OTHER, SELFPAY ==
--- NOTE | ~2025-03-28 | MR_ITS ---
CLINICAL HISTORY: M48.061 - Spinal stenosis, lumbar region without neurogenic claudication MR lumbar spine with and without gadolinium Comparison: None Findings: Examination is degraded by metallic artifact. No plain films are available for comparison. Thus, for numbering purposes, 5 lumbar type vertebral bodies will be presumed. This should be confirmed with plain films prior to any lumbar spinal intervention. Loss of normal lumbar lordosis. 5 mm of retrolisthesis of T12 on L1. 4 mm of retrolisthesis of L1 on L2. 8 mm of retrolisthesis of L2 on L3. 2 mm of anterolisthesis of L3 on L4. 2 mm of retrolisthesis of L4 on L5. 13 mm of anterolisthesis of L5 on S1. No acute fracture or pathologic bone lesion. Posterior fusion hardware at L3-S1. Mild reactive signal throughout the endplates of the lumbar and lower thoracic spine. Cauda equina and conus medullaris within normal limits. Paraspinous musculature intact. No paraspinous masses. L1-L2: Moderate disc desiccation. Mild disc height loss. Moderate diffuse disc bulge. Mild facet and ligamentum flavum hypertrophy. Mild epidural lipomatosis. Mild canal stenosis. Moderate bilateral foraminal stenosis. L2-L3: Moderate disc desiccation. Mild disc height loss. Moderate diffuse disc bulge/osteophyte. Mild facet and ligamentum flavum hypertrophy. Mild epidural lipomatosis. Severe canal stenosis. Moderate bilateral foraminal stenosis. L3-L4: Interbody device placement. Mild disc desiccation and diffuse disc bulge. Mild facet and ligamentum flavum hypertrophy. Mild epidural lipomatosis. Posterior fusion. Mild canal stenosis. Mild bilateral foraminal stenosis. L4-L5: Mild disc desiccation and diffuse disc bulge. Posterior fusion. No significant canal or foraminal stenosis. L5-S1: Moderate disc height loss and desiccation. Mild diffuse disc bulge. No significant canal stenosis. Severe bilateral foraminal stenosis. Bilateral L5 nerve root compression. IMPRESSION: 1. Multilevel degenerative disc and facet disease, as well as ligamentum flavum hypertrophy, As well as multilevel spondylolistheses, worst at L5-S1. 2. Postsurgical sequelae. 3. Multilevel canal stenoses, worst at L2-L3 where there is severe canal stenosis. 4. Multilevel foraminal stenoses, worst at L5-S1 where there is associated intraforaminal nerve root compression. Correlation with clinical symptoms is recommended to assess relevance of this finding. 5. Plain film correlation is recommended for numbering purposes prior to any lumbar spinal intervention. This document has been electronically signed by: Mame Pisano MD on 03/29/2025 15:37:46
[2025-03-28] MEDS: gadobutroL 10 ML VIAL IVPUSH (14:59)
--- OUTSIDE RECORDS SUMMARY | 2025-03-28 15:05 | XMS_ITS | Data Portability ---
Author Organization [facility], [facility] Address [address] [place] [address] Care Team Providers Care Nuclear Physicist Name Role Phone HIM CCA OTHER BERNIECAROLAdrienne Primary Care Provider [phone] Assessment Encounter Date Assessment Date Assessment LastModified by Organization Details LastModified Time 11/13/2024 11/13/2024 I provided real -time medical direction via phone for this encounter, and was available for additional phone based assistance as needed. I have reviewed and agree with the Assessment and Plan as documented by the Small Package And Bundle Sorter Clerk. We discussed the diagnostic uncertainty of [...] to call 911- verbalized understanding of instruction [email or web address] Not available 11/13/2024 12:16:00 11/15/2024 11/15/2024 I provided real -time medical direction via phone for this encounter and was available for additional phone-based assistance as needed. I have reviewed and agree with the Assessment and Plan as documented by the Small Package And Bundle Sorter Clerk. Patient given the opportunity to ask [...] has also been prescribed antibiotics by her manager integration. She feels like her feet are swelling. Overall feels significantly unwell. Per case sealer on the scene, patient with mild to moderate distress. Increased work of breathing. Vitals as above. Wheezing auscultated per case sealer on the scene. Impression: Asthma with acute [...] workup and evaluation. Expect call made for [facility] ED. Allergies: Reviewed [place] [id number] Not available 11/15/2024 16:37:30 Plan of Treatment Reminders Order Date Submit Date Provider Last Modified By Organization Details Last Modified Time Details Appointments None recorded. Lab rapid SARS CoV 2 Ag, QL IA, respiratory specimen 2024 025 [facility], [address] [place] [address], [id number] 5 17:17:28 rapid flu (A+B) 2024 025 [facility], [address] [place] [address], [id number] 5 17:17:29 rapid SARS CoV 2 Ag, QL IA, respiratory specimen 2024 025 [email or web address] 0 [facility], [address] [place] [address], [id number] 5 12:15:13 rapid flu (A+B) 2024 025 [email or web address] 0 [facility], [address] [place] [address], [id number] 5 12:15:13 BMP, serum or plasma 2024 025 [email or web address] 0 [facility], [address] [place] [address], [id number] 5 12:15:13 rapid SARS CoV 2 Ag, QL IA, respiratory specimen 2024 [facility], [address] [place] [address], [id number] 5 20:47:11 rapid flu (A+B) 2024 025 [facility], [address] [place] [address], [id number] 20:46:53 Referral None recorded. Procedures None recorded. Surgeries None recorded. Imaging None recorded. Medication Orders prednisone 20 mg tablet 2024 025 [place] [facility], [address] [place], [address], 5 13:15:57 methylpredn isolone sod succ (PF) 125 mg/2 mL solution for injection 2024 025 [email or web address] [facility], [address] [place], [address], 5 13:15:25 azithromyci n 500 mg tablet 2024 025 [email or web address] [facility], [address] [place], [address], 5 13:15:25 azithromyci n 250 mg tablet 2024 025 [place] [facility], [address] [place], [address], 5 13:15:55 benzonatate 100 mg capsule 2024 025 [place] [facility], [address] [place], [address], 5 13:15:52 ipratropium 0.5 mg-albutero l 3 mg (2.5 mg base)/3 mL nebulizatio n soln 2024 025 [email or web address] 0 [facility], [address] [place], [address], 5 12:15:13 prednisone 20 mg tablet 2024 025 [email or web address] 0 [facility], [address] [place], [address], 5 12:15:13 prednisone 20 mg tablet 2024 025 [facility], [address] [place], [address], 5 12:16:10 benzonatate 100 mg capsule 2024 025 [email or web address] 0 [facility], [address] [place], [address], 5 12:15:13 benzonatate 200 mg capsule 2024 025 [email or web address] 0 [facility], [address] [place], [address], 5 13:14:31 ipratropium 0.5 mg-albutero l 3 mg (2.5 mg base)/3 mL nebulizatio n soln 2024 025 [facility], [address] [place], [address], 5 12:16:07 lactated Ringers intravenous solution 2024 025 [email or web address] 0 [facility], [address] [place], [address], 5 12:15:13 ibuprofen 200 mg tablet 2024 025 [facility], [address] [place], [address], 5 16:37:55 prednisone 20 mg tablet 2024 025 [facility], [address] [place], [address], 5 16:37:55 prednisone 20 mg tablet 2024 025 [facility], [address] [place], [address], 5 16:39:40 azithromyci n 250 mg tablet 2024 025 [facility], [address] [place], [address], 5 16:37:55 azithromyci n 250 mg tablet 2024 025 [facility], [address] [place], [address], 5 16:39:37 guaifenesin ER 600 mg tablet, extended release 12 hr 2024 025 [facility], [address] [place], [address], 5 16:39:42 Patient TargetsNo targets recorded. Patient InstructionsNo instructions recorded. Reason for Referral None Reported. Results Created Date Observation Date Name Description Value Unit Range Abnormal Flag Note LastModifiedBy Organization Detail LastModifiedTime 11/13/19 25 11/13/2024 BMP, serum or plasm a BUN 25 Not Available [facility] [address] [place] [address], [id number] 11/13/2024 11:39:21 11/13/19 25 11/13/2024 rapid flu (A+B) Flu negati ve Not Available [facility] [address] [place] [address], [id number] 11/13/2024 11:39:31 11/13/1911/13/2024 rapid SARS CoV 2 Ag, QL IA, respi rator y speci men rapid SARS CoV 2 Ag, QL IA, respiratory specimen negati ve Not Available Main - [facility] ed [address] [place] [address], [id number] 11/13/2024 11:39:30 Result Notes None recorded. Medical [...] Updated DateTime 5 97 % 97 % 34050.6 4 g 108 /min 162.56 cm 18 /min 102.4 [degF] 133 mm[Hg] 84 mm[Hg] Not Available [employer] 5 16:23:19 Date Recorded Heart rate Oxygen saturation Oxygen saturation in Arterial blood by Pulse oximetry Body weight Body temperature Respiratory rate Systolic blood pressure Diastolic blood pressure Provider Name and Address Organization Details Last Updated DateTime 5 87 /min 96 % 96 % 37208.4 g 98.9 [degF] 18 /min 158 mm[Hg] 90 mm[Hg] Not Available [employer] 5 11:13:58 Date Recorded Oxygen saturation Oxygen saturation in Arterial blood by Pulse oximetry Body temperature Heart rate Respiratory rate Systolic blood pressure Diastolic blood pressure Provider Name and Address Organization Details Last Updated DateTime 5 98 % 98 % 98.1 [degF] 82 /min 18 /min 136 mm[Hg] 77 mm[Hg] Not Available [employer] 5 14:12:15 Date Recorded Heart rate Respiratory [...] 84 mm[Hg] Not Available [facility] - production 13:10:57 Social History None recorded. Functional Status None recorded. Mental Status None recorded. Family History Nothing Reported. Medical History No medical history recorded. Gynecological HistoryNo gynecological history recorded. Obstetrics History GPAL:G 0 P 0 0 0 0 Past Encounters Encounter ID Performer Location Encounter Start Date Encounter Closed Date Diagnosis/Indication Diagnosis SNOMED-CT Code Diagnosis ICD10 Code Diagnosis Note [id number] Magali Montana MD Main - [address] [id number] 11/22/2023 13:49:41 11/23/2023 10:14:11 Acute low back pain [id number] M54.50 68 yo w/ chronic back pain [...] to 15mg toradol IM and help from case sealer to reschedule pain clinic appt as soon as possible. [id number] Emiliano Roy MD Main - [facility] [address] [place] [id number] 04/06/2024 13:49:55 04/06/2024 20:33:11 Pain of left knee joint [id number] 99122 M25.562 [id number] Liza Davey MD Main - [facility] [address] [place] [id number] 05/25/2024 19:05:15 05/26/2024 11:41:59 Postoperative pain 079146068 G89.18 [id number] Asya Prater MD Main - [facility] [address] [place] [id number] 06/10/2024 15:12:21 06/11/2024 18:23:36 Dizziness [id number] R42 As noted, we were called to see this patient regarding concerns of dizziness. Evaluation in the field was performed by my case sealer colleague, as noted above, I provided real-time [...] ly changes to mentation, chest pain, dysnea. [id number] Asya Prater MD [facility] - [facility] [address] [place] [id number] 07/25/2024 19:57:02 08/21/2024 18:04:13 Pain of left knee joint [id number] 70934 M25.562 As noted, we were called to see this patient regarding concerns of knee pain. Evaluation in the field was performed by my case sealer colleague, as noted above, I provided real-time [...] changes to consciousn ess, chest pain, dyspnea. [id number] Jaron Sanderson MD [facility] - [facility] [address] [place] [id number] 09/20/2024 23:04:04 09/21/2024 08:55:28 Neck pain [id number] M54.2 [id number] Asya Prater MD [facility] [address] [place] [id number] 10/22/2024 16:23:16 10/23/2024 00:19:26 Dyspnea 874652525 R06.00 As noted, we were called to see this patient regarding concerns of cough and dyspnea. Evaluation in the field was performed by my case sealer colleague, as noted above, I provided real-time [...] prednisone 20mg x 5 days for possible asthma/PRIMARY OPERATOR D flare, as well as guafenesin [...] to consciousn ess, chest pain, worsened breathing. [id number] Mirta Bustamante MD [facility] [address] [place] [id number] 11/13/2024 11:13:56 11/13/2024 21:25:11 Exacerbation of moderate persistent asthma [id number] J45.41 s/p viral illness- no fever- no [...] that is covered/re d flags reviewed Dehydration [id number] E86 .0 pat. clinically dry / BUN 25- felt better after ivf [id number] Pricila Du MD [facility] [address] [place] [phone] 11/15/2024 13:51:01 11/15/2024 19:52:39 Dyspnea 586630180 R06.00 [id number] Jerman Peck MD Main - [facility] [address] [place] [phone] 12/17/2024 12:55:10 12/18/2024 09:46:50 Exacerbation of moderate persistent asthma 875772770 J45.41 COVID/flu negative. IV Methylpred nisone x1 now (will given 62.5mg, which is 1ml of solution) which is equivalent to slightly under 80mg of Prednisone ) as she prefers IV and states Methylpred nisone has helped in the past; for remainder will give 40mg daily. Has duoneb treatment at home. Will rx Z-pack as well as Rocky kowalski. Discussed red flag signs to present for higher level of care. [id number] Aida Ramos MD [facility] - [facility] [address] [place] [address] 12/18/2024 13:10:54 12/18/2024 21:29:57 Dizziness 731392050 R42 Evaluation in the field was performed by my case sealer colleague, as noted above, I provided real-time direction and supervisio n for this visit. 69yo F endorsing fall with possible LOC last night iso new onset dizziness. Endorsing intermitte nt focal neurologic sx include L hand numbness, L sided weakness. on case sealer eval VS unremarkab le, exam without focal [...] Marks Member ID Guarantor Name 12/17/2024 1 [facility] - DOS ON OR AFTER 2023 - DUAL ELIGIBLE - CARE HOME OPTIONS AND ONE CARE (MEDICARE REPLACEMENT/ADV ANTAGE - HMO) Cherry Cool [id number] Cherry Cool Notes Date Note Type Note [...] Chief Complaints: Cough, Fever/chillsPMH: Hypertension, Rheumatoid ArthritisComments: Sweat Box Attendant verified the Pt.'s name//address and phone number. [...] S/S not improving - Wellness visit requested. Small Package And Bundle Sorter Clerk Organization Information for Kieran Murrieta [employer] Legal Name: [employer] Address: [address] [place] [address], [place] [address], Wafer Machine Operator: Joesph Graham MD [facility] No.: [id number] Small Package And Bundle Sorter Clerk POC Test Results from Kieran Murrieta Rapid COVID antigen (17:42:26) COVID: + Rapid influenza antigen (17:42:28) Flu: - ....................... ....................... ....................... ....................... ....................... ....................... ... Small Package And Bundle Sorter Clerk Note From Kieran Murrieta: This 69-year-old female with a history including but not limited to hypertension, COPD and rheumatoid arthritis requested a visit today to address one week of cough producing yellow sputum, rhinorrhea, body aches and subjective fever. Patient [place] [facility] [facility] [place] was not diagnosed with anything and did not have any medications prescribed. Patient states she is been using her albuterol nebulizer machine twice a day and is not been using any other qoht-atl-[id number] medications. Patient is requesting an antibiotic, prednisone, [...] extremity edema. Rapid COVID positive and flu negative.[facility] contacted and the patient was treated with [...] ....................... ....................... ....................... ....................... ....................... ....................... ... [facility] Consulted: Asya Prater ....................... ....................... ....................... ....................... ....................... ....................... ... Disposition: Reny Prater MD [address] [facility],[address], [place], [address] [employer] 10/22/2024 20:18:49 11/13/2024 text/html CRC Nurse Triage [...] Speaking full sentences without trouble breathing- NE Small Package And Bundle Sorter Clerk Organization Information for Bruno Clarke Legal Name: [employer] Address: [address] [place] [address], Wafer Machine Operator: Jarde Zapata MD CLIA No.: [id number] Small Package And Bundle Sorter Clerk POC Test Results from Bruno Clarke iSTAT Chem8+ (11:35:00) Na: 137 mEq/L K: 4.5 mEq/L Cl: 106 mEq/L iCa: 1.15 mmol/L TCO2: 23 mmol/L Glu: 147 mg/dL BUN: 25 mg/dL Crea: 0.7 mg/dL Hct: 39 % Hb: 13.3 g/dL A Rapid COVID antigen (11:35:03) COVID: - Rapid influenza antigen (11:35:06) Flu: - ....................... ....................... ....................... ....................... ....................... ....................... ... Small Package And Bundle Sorter Clerk Note From Bruno Clarke: Dispatched to the call address for the female with difficulty breathing. Pt states earlier in the month she was diagnosed with Covid and on the 8th was seen in the ED for Covid [...] soft non tender/distended, pupils PERRL, -edema/swelling, Afebrile. [facility] consulted. IV (20g R hand) with blood draw, BMP, 1L LR given over 1 hour with reassessment every 15 minutes, 200mg Benzonatate and 40mg Prednisone given PO, DuoNeb with good effect. [facility] updated. Scripts called into preferred pharmacy. All med rights confirmed prior to administration. Red flags discussed. ALL times are approx. ....................... ....................... ....................... ....................... ....................... ....................... ... [facility] Consulted: Mirta Bustamante ....................... ....................... ....................... ....................... ....................... ....................... ... Disposition: Fulfilled SEGMD: seen by our service 10/22- dx with covid - given azithro/ guaifenesin ER/prednisone- patient worsened and presented to ED 10/25- - as above Mirta Bustamante MD [address] [place] [address],[address], [place], [address], [facility] - [email or web address] 11/13/2024 14:53:58 11/15/2024 text/html CRC Nurse Triage [...] ....................... ....................... ....................... ....................... ....................... ....................... ... Small Package And Bundle Sorter Clerk Note From Katheryn Ma: Sent to [...] to ED multiple times, been evaluated by manager integration and [facility]. Pt states she has been [...] Duo neb administered. Pt reports little improvement. [facility] consulted and pt is advised she needs to be transported to ED for further eval since previous treatments don't appear to be working. Pt initially resists idea of going to ED, but then agrees to transport to [facility] ED. 911 called. Pt calms while waiting for ambulance. Pt care transferred to [facility] Dept. ....................... ....................... ....................... ....................... ....................... ....................... ... [facility] Consulted: Pricila Du ....................... ....................... ....................... ....................... ....................... ....................... ... Disposition: Fulfilled Pricila Du MD [address] [facility],[address], [place], [address], [employer] [facility] [email or web address] 11/15/2024 16:37:46 12/17/2024 text/html CRC Nurse Triage [...] 12/17/2024:48 Allergies Reviewed at 12/17/2024 10:48 Comments: Sweat Box Attendant verified the Pt.'s name//address and phone number. [...] - Concerned expressed - Hx Bronchial asthma Small Package And Bundle Sorter Clerk Organization Information for Kieran Murrieta Business Legal Name: [employer] Address: [address] [place] [address], Ariana [facility], Wafer Machine Operator: Joesph CHURCH No.: [id number] Small Package And Bundle Sorter Clerk POC Test Results from Kieran Murrieta Rapid influenza antigen (12:53:42) Flu: - Rapid COVID antigen (12:53:42) COVID: - ....................... ....................... ....................... ....................... ....................... ....................... ... Small Package And Bundle Sorter Clerk Note From Kieran Murrieta: This 69-year-old [...] questions and is agreeable to this plan. [facility] Lab Orders: rapid SARS CoV 2 Ag, QL IA, respiratory specimen: Performed rapid flu (A+B): Performed [facility] Medication Orders: methylprednisolone sod succ (PF) 125 mg/2 mL solution for injection: Administered Comment: 62 mg IVP azithromycin 500 mg tablet: Administered ....................... ....................... ....................... ....................... ....................... ....................... ... [facility] Consulted: Yefri Peck ....................... ....................... ....................... ....................... ....................... ....................... ... Disposition: Fulfilled Jerman Peck MD [address] [facility],[address], [place], [address], [employer] 12/17/2024 14:52:16 12/18/2024 text/html CRC Nurse Triage [...] ....................... ....................... ....................... ....................... ....................... ....................... ... Small Package And Bundle Sorter Clerk Note From Bruno Clarke: Dispatched to [...] signs of trauma noted. Blood glucose 147. [facility] consulted. Pt was advised to seek a further work up in the ED. Pt agreed but stated her daughter was on her way and she would prefer she take her to the ED. Red flags discussed. ALL times are approx. ....................... ....................... ....................... ....................... ....................... ....................... ... [facility] Consulted: Aida Ramos ....................... ....................... ....................... ....................... ....................... ....................... ... Disposition: Fulfilled Aida Ramos MD [address] [facility],[address], [place], [address], [facility] [employer], [employer] 12/18/2024 13:58:24 OBGyn Episode No OBEpisode recorded.
== END 2025-03-28 13:02 | disposition home or self-care (01) ==
LOC: HO.MRI 13:01
PROVIDERS: PCP Internal Medicine; Visit Provider Neurological Surgery
DX: M48.061 Spinal stenosis, lumbar region without neurogenic claudication (principal)
CPT/HCPCS: 72158; A9585

== ENCOUNTER → 2025-03-28 13:28 | Outpatient (BNV) | payer OTHER, SELFPAY | PROVIDERS: PCP Internal Medicine; Visit Provider Radiology Diagnostic Radiology | DX: M48.061 Spinal stenosis, lumbar region without neurogenic claudication (principal) | CPT/HCPCS: 72158 ==

== ENCOUNTER 2025-04-24 13:58 | Outpatient (REF) | payer OTHER, SELFPAY ==
[2025-04-24 17:41] LABS: Hemoglobin A1C 121.8990 umol/L; Total Hemoglobin (HGBA1C) 2728.0056 umol/L
[2025-04-24 17:59] LABS: Alanine Aminotransferase 9 U/L (0-31); Albumin Level 4.1 g/dL (3.5-5.0); Alkaline Phosphatase 64 U/L (39-117); Anion Gap 12 (12-20); Aspartate Amino Transferase 23 U/L (5-31); Blood Urea Nitrogen 14 mg/dL (9-16); Calcium 9.1 mg/dL (8.4-10.2); Carbon Dioxide 23 mmol/L (22-29); Chloride 108 mmol/L (96-108); Estimated Glomerular Filt Rate > 60; Potassium 3.9 mmol/L (3.3-5.1); Sodium 139 mmol/L (135-145); Total Protein 6.8 g/dL (6.5-8.0)
== END 2025-04-24 13:59 | disposition home or self-care (01) ==
LOC: HO.HMGCLDS 13:58
PROVIDERS: PCP Internal Medicine; Visit Provider Internal Medicine
DX: E11.9 Type 2 diabetes mellitus without complications (principal); M48.062 Spinal stenosis, lumbar region with neurogenic claudication; H81.13 Benign paroxysmal vertigo, bilateral; M06.9 Rheumatoid arthritis, unspecified; M17.0 Bilateral primary osteoarthritis of knee; M54.41 Lumbago with sciatica, right side; G89.29 Other chronic pain; M62.838 Other muscle spasm; M79.7 Fibromyalgia; Z79.899 Other long term (current) drug therapy; Z91.81 History of falling; Z74.09 Other reduced mobility
CPT/HCPCS: 36415; 80053; 83036; 83721; 99212

== ENCOUNTER 2025-04-24 13:58 | Outpatient (AMB) | payer OTHER, SELFPAY ==
--- NOTE | 2025-04-24 14:03 | A.OFFPC_ITS ---
Vital Signs 04/24/25 14:04 Height 5 ft 1 in Weight 190 lb BMI 35.9 BP 128/8 L Pulse 82 Pulse Source Pulse Oximeter Temp 99.2 F Temp Source Oral Pulse Oximetry (%) 97 Oxygen Delivery Method Room Air Oxygen Flow Rate 82 Intake Visit Reasons: 3M F/U Is last menstrual period known: No Post menopausal: Yes Patient : No Allergies acetaminophen (From Tylenol) Allergy (Severe, Verified 04/24/25 14:07) Shortness of Breath ibuprofen Allergy (Severe, Verified 04/24/25 14:07) shortness of breath canned food Allergy (Intermediate, Uncoded 02/26/25 14:13) Shortness of Breath Medication List - Last Reconciled 04/24/25 by Federico Yates MD [bed bars As directed NS] [adult diapers medium Use for incontinence episodes at night.] [adult pull-ups As directed NS] albuterol sulfate 2.5 mg (3 mL) inhalation Q4-6H PRN 30 days alcohol swabs (Alcohol Prep Pads) 1 pad topical DAILY alendronate (Fosamax) 70 mg PO QWEEK 90 days alum-mag hydroxide-simeth 200-200-20 mg/5 mL (Maalox Advanced) 10 mL PO ONCE PRN 30 days [bed table As directed] benzonatate 150 mg PO BID 15 days [Blood pressure monitor As directed] blood sugar diagnostic (FreeStyle Lite Strips) Check blood sugar once daily. blood-glucose meter (FreeStyle Lite Meter kit) Check blood sugar once daily capsaicin 0.025% 1 appl topical BID 30 days cetirizine 10 mg PO DAILY PRN cyclobenzaprine 10 mg PO TID PRN disposable gloves Size medium [disposable pads-up to 3/day As directed] doxepin 10 mg PO BEDTIME ipratropium-albuterol 0.5 mg-3 mg(2.5 mg base)/3 mL 3 mL inhalation Q6H PRN 3 weeks lancets (FreeStyle Lancets) Check blood sugar once daily. lisinopril 5 mg PO DAILY 90 days memantine 10 mg PO QAM [mobility scooter As directed NS] montelukast 10 mg PO DAILY nebulizer and compressor (Comp-Air Nebulizer Compressor) As directed [non-slip shower mat As directed NS] ondansetron HCl 4 mg PO Q8H PRN 30 days pantoprazole 40 mg PO DAILY@0630 [raised toilet seat As directed NS] [showering chairs As directed] simvastatin 20 mg PO BEDTIME walker As directed walker Use As directed NS Tobacco use date assessed: 01/12/25 Dental Screening Dental Screen Date: 01/12/25 HPI 3M F/U HPI Details History - The patient is a 69 year old female pr esenting with diabetes mellitus. - The patient previously had an A1c francis urement of 6.7, indicating controlled diabetes, but is on regular monitoring and dietary control. - She reports taking lisinopril for asso ciated hypertension. - The patient reports chronic low back p ain, related to a previous lumbar spine surgery one year prior. - She states persistent pain and difficu lty in mobility, and regrets the prior surgery due to the ongoing symptoms. - She is scheduled for evaluation by a adina valencia and had an MRI for diagnosis. - The patient reports persistent neuropa thic pain located on the left side of her scalp, described as shooting pain and associated neuralgia. - The patient has experienced this condi tion for approximately two years, preventing her from comfortably sleeping on her left side. - Previous consultations with a neurolog ist included an MRI of the head, which did not resolve the issue, and suggested a primary care evaluation. She is off gabapentin, duloxetine, and lorazepam which she was getting through different providers She is able to walk no with the help of walker however the walker is old and falling apart she is requesting a new script for that Patient has difficulty walking due to history of rheumatoid arthritis, fibromyalgia and lumbar radiculitis she is at risk of falling She also have a chronic vertigo Medical History: - Diabetes mellitus: A1c last recorded a t 6.7. - Hypertension managed with lisinopril. - Osteoporosis for which the patient is taking Fosamax. - History of neuralgia causing scalp pam n. Left-sided - Urinary incontinence related to diabet es. - History of allergic rhinitis. Surgical History: - Lumbar spine surgery performed one yea r prior. Medications: - Lisinopril 5 mg for blood pressure con trol. - Fosamax for osteoporosis. - Terazine for allergy management. - Cyclobenzaprine as a muscle relaxant. Social History: - The patient controls her food intake a s part of diabetes management. - She has removed several medications to mitigate drug dependence and enhance mobility. - No longer requires home nursing for bl ood pressure monitoring. - Uses a scooter for mobility assistance . And walker with wheels which need to be replaced Problem List - Diabetes Mellitus - Hypertension - Osteoporosis - Scalp Neuralgia - Lumbar Spine Pain - risk for fall - chronic vertigo - rheumatoid arthritis - fibromyalgia - osteoarthritis knees bilateral Patient Instructions - Undergo blood testing today to assess current blood sugar levels. - Book an appointment for a follow-up th ree months from today. - Avoid sleeping on the left side if it causes discomfort. - Await results from the neurosurgical c onsultation regarding the lumbar spine MRI. - Contact the primary care office for as sistance with the prescription for a walker. Review of Systems - General: No fever no chills - Neurological: No headaches no dizziness - Ear nose throat: No sore throat no hearing difficulty no ear pain - Cardiovascular: No syncope, no chest pain, no palpitations - Gastrointestinal: No nausea vomiting or diarrhea Physical Exam General: No acute distress, wearing sweater and a jacket during summer with 80+ degree F temperature[ usual for patient] HEENT: No acute findings Neck: Supple, with pain radiating from the neck to the back Respiratory system: Able to talk in full sentences, no audible wheeze Cardiovascular: S1-S2 regular in rate and rhythm Gastrointestinal: No pain Extremities: No new findings, patient uses a walker and has difficulty walking due to lumbar spine issues 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: Alert awake oriented x3 Skin: Normal turgor, PFSH Medical History Cognitive disorder Hand numbness GERD (gastroesophageal reflux disease) Cold intolerance Rheumatoid arthritis Lumbar spinal stenosis RAÚL (obstructive sleep apnea) Trigger finger Sleep disorder breathing Latent tuberculosis Cough Asthma Chronic pain syndrome Myofascial muscle pain Osteoarthritis Fibromyalgia HTN (hypertension) Anxiety Surgical History Hx of ovarian cystectomy Hx of cervical discectomy History of lumbar surgery Family History Father Diabetes Mother Acute arthritis Other Mental health disorder Social History Household Members: None Housing: Apartment Are you a primary healthcare account manager to a significant other at home: No Do you presently have visiting nurse or other home services: Yes ([employer].) Alcohol intake: never Comment: COUNTS CORRECT Patient Tobacco Use Status: Never used Tobacco e-Cigarette/Vaping Use: Never Used Advance Directives Date on File: 02/26/22 service: No Current occupational status: unemployed Cognitive needs: No Hearing needs: No Vision needs: No Questionnaire PHQ-9 Over the last 2 weeks, how often have you been bothered by any of the following problems? 45573 - PHQ-9 Billing: Patient declined-do not bill Source: Developed by Drs. Bj Ingram, Dexter Ayala and colleagues, with an educational jesus from [email or web address]. Thrive Questionnaire Date Thrive assessed: 04/24/25 I am a: Patient What is your living situation today?: I have a steady place to live Within the past 12 months, did the food you bought not last and you didn't have the money to get more?: Never true Within the past 12 months, did you worry whether your food would run out before you got money to buy more?: Never true Do you have trouble paying for medicines?: No Do you have trouble getting transportation to medical appointments?: No Do you have trouble paying your heating and electricity bill?: No Do you have trouble taking care of your child, family member or friend?: No Do you have trouble with day-to-day activities such as bathing, preparing meals, shopping, managing finances, etc.?: No Are you currently unemployed and looking for a job?: No Are you interested in more education?: No Please select the resources that you would like help with: None THRIVE Score: 0 AUDIT C Alcohol Use Questionnaire (AUDIT-C) 1. How often do you have a drink containing alcohol?: Never 3. How often do you have six or more drinks on one occasion?: Never Total Score: 0 Score Reviewed/Action Taken: Yes MATTHEW-7 AMB Questionnaire MATTHEW-7 Date MATTHEW - 7 assessed: 04/24/25 Source: Developed by Drs. Bj Ingram, Yolanda Glass, Dexter Ferguson and colleagues, with an educational jesus from [email or web address]. Physical exam (Primary Care) Vital Signs: Last Vital Signs Temp 99.2 F 04/24/25 14:04 Pulse 82 04/24/25 14:04 BP 128/8 L 04/24/25 14:04 Pulse Ox 97 04/24/25 14:04 Oxygen Delivery Method Room Air 04/24/25 14:04 Oxygen Flow Rate 82 04/24/25 14:04 BMI result Body Mass Index 35.9 Tobacco/Smoking Status: Tobacco use Status Tobacco use date assessed 01/12/25 04/24/25 14:11 Patient Tobacco Use Status Never used Tobacco 04/24/25 14:11 e-Cigarette/Vaping Use Never Used 04/24/25 14:11 Thrive Assessment: Date of Thrive Assessment Date Thrive assessed 04/24/25 04/24/25 14:13 Coding Level of Care Code Est Pt Level 5 (02425) Diagnoses Diet-controlled diabetes mellitus E11.9 Risk for falls Z91.81 Spinal stenosis of lumbar region with neurogenic claudication M48.062 Neurogenic claudication status: with neurogenic claudication Benign paroxysmal positional vertigo due to bilateral vestibular disorder H81.13 Laterality: bilateral Rheumatoid arthritis involving multiple sites, unspecified whether rheumatoid factor present M06.9 Rheumatoid arthritis location: multiple sites Rheumatoid factor presence: unspecified presence Primary osteoarthritis of both knees M17.0 Osteoarthritis type: primary Chronic right-sided low back pain with right-sided sciatica M54.41; G89.29 Back pain laterality: right Chronicity: chronic Sciatica laterality: sciatica of right side Sciatica presence: with sciatica History of lumbar surgery Z98.890 Muscle spasm M62.838 Fibromyalgia M79.7 Impaired mobility Z74.09 Time Spent (min) 40 Comment Reviewing chart/labs/hdwu-yd-ucbs with the patient/coordination of care Assessment & Plan Assessment & Plan (1) Diet-controlled diabetes mellitus: Code(s): E11.9 - Type 2 diabetes mellitus without complications Category: Medical (2) Risk for falls: Code(s): Z91.81 - History of falling Category: Medical (3) Lumbar spinal stenosis: Code(s): M48.061 - Spinal stenosis, lumbar region without neurogenic claudication Category: Medical Qualifiers: Neurogenic claudication status: with neurogenic claudication Qualified Code(s): M48.062 - Spinal stenosis, lumbar region with neurogenic claudication (4) Benign paroxysmal positional vertigo: Code(s): H81.10 - Benign paroxysmal vertigo, unspecified ear Category: Medical Qualifiers: Laterality: bilateral Qualified Code(s): H81.13 - Benign paroxysmal vertigo, bilateral (5) Rheumatoid arthritis: Code(s): M06.9 - Rheumatoid arthritis, unspecified Category: Medical Qualifiers: Rheumatoid arthritis location: multiple sites Rheumatoid factor presence: unspecified presence Qualified Code(s): M06.9 - Rheumatoid arthritis, unspecified (6) Osteoarthritis of knees, bilateral: Code(s): M17.0 - Bilateral primary osteoarthritis of knee Category: Medical Qualifiers: Osteoarthritis type: primary Qualified Code(s): M17.0 - Bilateral primary osteoarthritis of knee (7) Lower back pain: Code(s): M54.50 - Low back pain, unspecified Category: Medical Qualifiers: Back pain laterality: right Chronicity: chronic Sciatica laterality: sciatica of right side Sciatica presence: with sciatica Qualified Code(s): M54.41 - Lumbago with sciatica, right side; G89.29 - Other chronic pain (8) History of lumbar surgery: Code(s): Z98.890 - Other specified postprocedural states Category: Surgical (9) Muscle spasm: Code(s): M62.838 - Other muscle spasm Category: Medical (10) Fibromyalgia: Code(s): M79.7 - Fibromyalgia Category: Medical (11) Impaired mobility: Code(s): Z74.09 - Other reduced mobility Category: Medical Plan History - The patient is a 69 year old female presenting with diabetes mellitus. - The patient previously had an A1c measurement of 6.7, indicating controlled diabetes, but is on regular monitoring and dietary control. - She reports taking lisinopril for associated hypertension. - The patient reports chronic low back pain, related to a previous lumbar spine surgery one year prior. - She states persistent pain and difficulty in mobility, and regrets the prior surgery due to the ongoing symptoms. - She is scheduled for evaluation by a neurosurgeon and had an MRI for diagnosis. - The patient reports persistent neuropathic pain located on the left side of her scalp, described as shooting pain and associated neuralgia. - The patient has experienced this condition for approximately two years, preventing her from comfortably sleeping on her left side. - Previous consultations with a neurologist included an MRI of the head, which did not resolve the issue, and suggested a primary care evaluation. She is off gabapentin, duloxetine, and lorazepam which she was getting through different providers She is able to walk no with the help of walker however the walker is old and falling apart she is requesting a new script for that Patient has difficulty walking due to history of rheumatoid arthritis, fibromyal grace and lumbar radiculitis she is at risk of falling She also have a chronic vertigo Medical History: - Diabetes mellitus: A1c last recorded at 6.7. - Hypertension managed with lisinopril. - Osteoporosis for which the patient is taking Fosamax. - History of neuralgia causing scalp pain. Left-sided - Urinary incontinence related to diabetes. - History of allergic rhinitis. Surgical History: - Lumbar spine surgery performed one year prior. Medications: - Lisinopril 5 mg for blood pressure control. - Fosamax for osteoporosis. - Terazine for allergy management. - Cyclobenzaprine as a muscle relaxant. Social History: - The patient controls her food intake as part of diabetes management. - She has removed several medications to mitigate drug dependence and enhance mobility. - No longer requires home nursing for blood pressure monitoring. - Uses a scooter for mobility assistance. And walker with wheels which need to be replaced Problem List - Diabetes Mellitus - Hypertension - Osteoporosis - Scalp Neuralgia - Lumbar Spine Pain - risk for fall - chronic vertigo - rheumatoid arthritis - fibromyalgia - osteoarthritis knees bilateral Patient Instructions - Undergo blood testing today to assess current blood sugar levels. - Book an appointment for a follow-up three months from today. - Avoid sleeping on the left side if it causes discomfort. - Await results from the neurosurgical consultation regarding the lumbar spine MRI. - Contact the primary care office for assistance with the prescription for a walker. Orders: Orders Hemoglobin A1c Today E11.9 - Type 2 diabetes mellitus without complications LDL Cholesterol Direct Today E11.9 - Type 2 diabetes mellitus without complications Comprehensive Met. Panel Today E11.9 - Type 2 diabetes mellitus without complications Medications: New [Walker with sheels] As directed 1 ea 0RF H81.13 - Benign paroxysmal vertigo, bilateral, M06.9 - Rheumatoid arthritis, unspecified, M17.0 - Bilateral primary osteoarthritis of knee, M48.062 - Spinal stenosis, lumbar region with neurogenic claudication, M54.50 - Low back pain, unspecified, M62.838 - Other muscle spasm, M79.7 - Fibromyalgia, Z74.09 - Other reduced mobility, Z91.81 - History of falling, Z98.890 - Other specified postprocedural states Discontinued lorazepam Discontinued Reason: Doctor's Order 0.5 mg PO BEDTIME 30 days PRN 30 tabs 1RF anxiety/insomnia duloxetine Discontinued Reason: Doctor's Order 20 mg PO DAILY 90 days 90 caps 0RF
[2025-04-24 14:04] VITALS: BP 128/8; PULSE 82; TEMP 37.3; O2SAT 97; BMI 35.9
--- OUTSIDE RECORDS SUMMARY | 2025-04-24 14:48 | XMS_ITS | Data Portability ---
Author Organization [employer] [facility], [facility] Address [address] [place] [address] Care Team Providers Care Commercial Representative Name Role Phone HIM CCA OTHER BERNIENEHAL Primary Care Provider Assessment Encounter Date Assessment Date Assessment LastModified by Organization Details LastModified Time 11/13/2024 11/13/2024 I provided real -time medical direction via phone for this encounter, and was available for additional phone based assistance as needed. I have reviewed and agree with the Assessment and Plan as documented by the Paper Cap Machine Operator. We discussed the diagnostic uncertainty of [...] to call 911- verbalized understanding of instruction [email or web address] Not available 11/13/2024 12:16:00 11/15/2024 11/15/2024 I provided real -time medical direction via phone for this encounter and was available for additional phone-based assistance as needed. I have reviewed and agree with the Assessment and Plan as documented by the Paper Cap Machine Operator. Patient given the opportunity to [...] has also been prescribed antibiotics by her digital media director. She feels like her feet are swelling. Overall feels significantly unwell. Per elementary esl teacher on the scene, patient with mild to moderate distress. Increased work of breathing. Vitals as above. Wheezing auscultated per elementary esl teacher on the scene. Impression: Asthma with acute [...] workup and evaluation. Expect call made for [facility] ED. Allergies: Reviewed [place] [id number] Not available 11/15/2024 16:37:30 Plan of Treatment Reminders Order Date Submit Date Provider Last Modified By Organization Details Last Modified Time Details Appointments None recorded. Lab rapid SARS CoV 2 Ag, QL IA, respiratory specimen [address], [phone] 5 17:17:28 rapid flu (A+B) [address], [address] [place] [address] 5 17:17:29 rapid SARS CoV 2 Ag, QL IA, respiratory specimen 2024 025 [email or web address] [address], [phone] 5 12:15:13 rapid flu (A+B) 2024 025 [email or web address] [address], [phone] 5 12:15:13 BMP, serum or plasma 2024 025 [email or web address] 0 [facility], [address] [place] [address], [phone] 5 12:15:13 rapid SARS CoV 2 Ag, QL IA, respiratory specimen 2024 [facility], [address] [place] [address], [id number] 5 20:47:11 rapid flu (A+B) 2024 025 [facility], [address] [place] [address], [id number] 5 20:46:53 Referral None recorded. Procedures None recorded. Surgeries None recorded. Imaging None recorded. Medication Orders prednisone 20 mg tablet 2024 025 [facility], [address] [place], [address], 5 13:15:57 methylpredn isolone sod succ (PF) 125 mg/2 mL solution for injection 2024 025 [email or web address] [facility], [address] [place], [address], 5 13:15:25 azithromyci n 500 mg tablet 2024 025 [email or web address] [facility], [address] [place], [address], 5 13:15:25 azithromyci n 250 mg tablet 2024 025 [facility], [address] [place], [address], 5 13:15:55 benzonatate 100 mg capsule 2024 025 [facility], [address] [place], [address], 5 13:15:52 ipratropium 0.5 mg-albutero l 3 mg (2.5 mg base)/3 mL nebulizatio n soln 2024 025 [email or web address] 0 [facility], [address] [place], [address], 5 12:15:13 prednisone 20 mg tablet 2024 025 [email or web address] 0 [facility], [address] [place], [address], 5 12:15:13 prednisone 20 mg tablet 2024 025 [facility], [address] [place], [address], 5 12:16:10 benzonatate 100 mg capsule 2024 025 [email or web address] 0 [facility], [address] [place], [address], 5 12:15:13 benzonatate 200 mg capsule 2024 025 [email or web address] 0 [facility], [address] [place], [address], 5 13:14:31 ipratropium 0.5 mg-albutero l 3 mg (2.5 mg base)/3 mL nebulizatio n soln 2024 025 [facility], [address] [place], [address], 5 12:16:07 lactated Ringers intravenous solution 2024 025 [email or web address] 0 [facility], [address] [place], [address], 5 12:15:13 ibuprofen 200 mg tablet 2024 025 [facility], [address] [place], [address], 5 16:37:55 prednisone 20 mg tablet 2024 025 [facility], [address] [place], [address], 5 16:37:55 prednisone 20 mg tablet 2024 025 [facility], [address] [place], [address], 5 16:39:40 azithromyci n 250 mg tablet 2024 025 [facility], [address] [place], [address], 5 16:37:55 azithromyci n 250 mg tablet 2024 025 [facility], [address] [place], [address], 5 16:39:37 guaifenesin ER 600 mg tablet, extended release 12 hr 2024 025 [facility], [address] [place], [address], 5 16:39:42 Patient TargetsNo targets recorded. Patient InstructionsNo instructions recorded. Reason for Referral None Reported. Results Created Date Observation Date Name Description Value Unit Range Abnormal Flag Note LastModifiedBy Organization Detail LastModifiedTime 11/13/1911/13/2024 BMP, serum or plasm a BUN 25 Not Available [facility] [address] [place] [address], [phone] 11/13/2024 11:39:21 11/13/19 25 11/13/2024 rapid flu (A+B) Flu negati ve Not Available [facility] - [facility] [address] [place] [address], [phone] 11/13/2024 11:39:31 11/13/1911/13/2024 rapid SARS CoV 2 Ag, QL IA, respi rator y speci men rapid SARS CoV 2 Ag, QL IA, respiratory specimen negati ve Not Available Main - [facility] ed [address] [place] [address], [phone] 11/13/2024 11:39:30 Result Notes None recorded. Medical [...] Body height Respiratory rate Body temperature Systolic And Diastolic Provider Name and Address Organization Details Last Updated DateTime 5 97 % 97 % 17085.6 4 g 108 /min 162.56 cm 18 /min 102.4 [degF] 133/84 mm[Hg] Not Available [employer] 5 16:23:19 Date Recorded Heart rate Oxygen saturation Oxygen saturation in Arterial blood by Pulse oximetry Body weight Body temperature Respiratory rate Systolic And Diastolic Provider Name and Address Organization Details Last Updated DateTime 5 87 /min 96 % 96 % 38315.4 g 98.9 [degF] 18 /min 158/90 mm[Hg] Not Available [employer] 5 11:13:58 Date Recorded Oxygen saturation Oxygen saturation in Arterial blood by Pulse oximetry Body temperature Heart rate Respiratory rate Systolic And Diastolic Provider Name and Address Organization Details Last Updated DateTime 5 98 % 98 % 98.1 [degF] 82 /min 18 /min 136/77 mm[Hg] Not Available [employer] 5 14:12:15 Date Recorded Heart rate Respiratory rate Oxygen saturation Oxygen saturation in Arterial blood by Pulse oximetry Body temperature Systolic And Diastolic Provider Name and Address Organization Details Last Updated DateTime 5 84 /min 18 /min 96 % 96 % 97.9 [degF] 128/79 mm[Hg] Not Available [employer] 12:55:12 Date Recorded Oxygen saturation Oxygen saturation in Arterial blood by Pulse oximetry Body temperature Respiratory rate Heart rate Systolic And Diastolic Provider Name and Address Organization Details Last Updated DateTime 98 % 98 % 98.9 [degF] 16 /min 74 /min 150/84 mm[Hg] Not Available [employer] - production 13:10:57 Social History None recorded. Functional Status None recorded. Mental Status None recorded. Family History Nothing Reported. Medical History No medical history recorded. Gynecological HistoryNo gynecological history recorded. Obstetrics History GPAL:G 0 P 0 0 0 0 Past Encounters Encounter ID Performer Location Encounter Start Date Encounter Closed Date Diagnosis/Indication Diagnosis SNOMED-CT Code Diagnosis ICD10 Code Diagnosis Note [id number] Magali Montana MD [facility] - [facility] [address] [place] [phone] 11/22/2023 13:49:41 11/23/2023 10:14:11 Acute low back pain 594008103 M54.50 68 yo w/ chronic back pain [...] to 15mg toradol IM and help from elementary esl teacher to reschedule pain clinic appt as soon as possible. [id number] Emiliano Roy MD [facility] - [facility] [address] [place] [phone] 04/06/2024 13:49:55 04/06/2024 20:33:11 Pain of left knee joint 8009801645 29798 M25.562 [id number] Liza Davey MD [facility] - [facility] [address] [place] [id number] 05/25/2024 19:05:15 05/26/2024 11:41:59 Postoperative pain 494661023 G89.18 [id number] Asya Prater MD [facility] - [facility] [address] [place] [phone] 06/10/2024 15:12:21 06/11/2024 18:23:36 Dizziness 108995174 R42 As noted, we were called to see this patient regarding concerns of dizziness. Evaluation in the field was performed by my elementary esl teacher colleague, as noted above, I provided real-time [...] ly changes to mentation, chest pain, dysnea. [id number] Aysa Prater MD [facility] [address] [place] [phone] 07/25/2024 19:57:02 08/21/2024 18:04:13 Pain of left knee joint [id number] 46523 M25.562 As noted, we were called to see this patient regarding concerns of knee pain. Evaluation in the field was performed by my elementary esl teacher colleague, as noted above, I provided real-time [...] changes to consciousn ess, chest pain, dyspnea. [id number] Jaron Sanderson MD [facility] - [facility] [address] [place] [phone] 09/20/2024 23:04:04 09/21/2024 08:55:28 Neck pain [id number] M54.2 [id number] Asya Prater MD [facility] [address] [place] [phone] 10/22/2024 16:23:16 10/23/2024 00:19:26 Dyspnea 939648320 R06.00 As noted, we were called to see this patient regarding concerns of cough and dyspnea. Evaluation in the field was performed by my elementary esl teacher colleague, as noted above, I provided real-time [...] prednisone 20mg x 5 days for possible asthma/CLAIMS SERVICE ADJUSTOR D flare, as well as guafenesin . [...] to consciousn ess, chest pain, worsened breathing. [id number] Mirta Bustamante MD [facility] [address] [place] [phone] 11/13/2024 11:13:56 11/13/2024 21:25:11 Exacerbation of moderate persistent asthma 053512055 J45.41 s/p viral illness- no fever- no [...] that is covered/re d flags reviewed Dehydration 25522290 E86 .0 pat. clinically dry / BUN 25- felt better after ivf [id number] Pricila Du MD [facility] - [facility] [address] [place] [phone] 11/15/2024 13:51:01 11/15/2024 19:52:39 Dyspnea 927467927 R06.00 [id number] Jerman Peck MD [facility] - [facility] [address] [place] [id number] 12/17/2024 12:55:10 12/18/2024 09:46:50 Exacerbation of moderate persistent asthma 943241715 J45.41 COVID/flu negative. IV Methylpred nisone x1 [...] to present for higher level of care. [id number] Aida Ramos MD [facility] - [facility] [address] [place] [phone] 12/18/2024 13:10:54 12/18/2024 21:29:57 Dizziness 248635765 R42 Evaluation in the field was performed by my elementary esl teacher colleague, as noted above, I provided real-time direction and supervisio n for this visit. 69yo F endorsing fall with possible LOC last night iso new onset dizziness. Endorsing intermitte nt focal neurologic sx include L hand numbness, L sided weakness. on elementary esl teacher eval VS unremarkab le, exam without focal [...] Marks Member ID Guarantor Name 12/17/2024 1 [facility] - DOS ON OR AFTER 2023 - DUAL ELIGIBLE - DETENTION OPTIONS AND ONE CARE (MEDICARE REPLACEMENT/ADV ANTAGE - HMO) Cherry Cool [id number] Cherry oCol Notes Date Note Type Note Provider Name [...] Pain with inspirationDenies: Increased work of breathing/labored with or without fever Unable to speak in full sentences without distress Discoloration of skin -cyanosis Needs to sleep sitting up, can t catch breath Shortness of breath in setting of confusion Lower extremity swelling History of asthma, increased use of inhaler COPD Chief Complaints: Cough, Fever/chillsPMH: Hypertension, Rheumatoid ArthritisComments: Press Officer verified the Pt.'s name//address and phone number. [...] S/S not improving - Wellness visit requested. Paper Cap Machine Operator Organization Information for Kieran Murrieta Business Legal Name: [facility] Address: [address] [place] [address], [address] [address], Automobile Mechanic: Joesph Graham MD KOFI No.: [id number] Paper Cap Machine Operator POC Test Results from Kieran Murrieta Rapid COVID antigen (17:42:26) COVID: + Rapid influenza antigen (17:42:28) Flu: - ....................... ....................... ....................... ....................... ....................... ....................... ... Paper Cap Machine Operator Note From Kieran Murrieta: This 69-year-old female with a history including but not limited to hypertension, COPD and rheumatoid arthritis requested a visit today to address one week of cough producing yellow sputum, rhinorrhea, body aches and subjective fever. Patient states she went to [place] ED last night was not diagnosed with anything and did not have any medications prescribed. Patient states she is been using her albuterol nebulizer machine twice a day and is not been using any other rbid-rpx-viydxri medications. Patient is requesting an antibiotic, prednisone, something for secretions, and something for her fever. Patient denies [...] extremity edema. Rapid COVID positive and flu negative.[facility] contacted and the [...] ....................... ....................... ....................... ....................... ....................... ....................... ... [facility] Consulted: Aysa Prater ....................... ....................... ....................... ....................... ....................... ....................... ... Disposition: Reny Prater MD [address] [place] [address],[address], [place], [phone], [employer] 10/22/2024 20:18:49 11/13/2024 text/html [facility] Nurse Triage Notes (Holli Miller - ROLAND): [...] Speaking full sentences without trouble breathing- NE Paper Cap Machine Operator Organization Information for Bruno Clarke Legal Name: [employer] Address: [address] [place] [id number], Automobile Mechanic: Jared Zapata MD CLIA No.: [id number] Paper Cap Machine Operator POC Test Results from Bruno Clarke iSTAT Chem8+ (11:35:00) Na: 137 mEq/L K: 4.5 mEq/L Cl: 106 mEq/L iCa: 1.15 mmol/L TCO2: 23 mmol/L Glu: 147 mg/dL BUN: 25 mg/dL Crea: 0.7 mg/dL Hct: 39 % Hb: 13.3 g/dL A Rapid COVID antigen (11:35:03) COVID: - Rapid influenza antigen (11:35:06) Flu: - ....................... ....................... ....................... ....................... ....................... ....................... ... Paper Cap Machine Operator Note From Bruno Clarke: Dispatched to the call address for the female with difficulty breathing. Pt states earlier in the month she was diagnosed with Covid and on the was seen in the ED for Covid and pneumonia. She was given steroids and abx. She states she doesn t have the productive cough anymore, just [...] soft non tender/distended, pupils PERRL, -edema/swelling, Afebrile. [facility] consulted. IV (20g R hand) with blood draw, BMP, 1L LR given over 1 hour with reassessment every 15 minutes, 200mg Benzonatate and 40mg Prednisone given PO, DuoNeb with good effect. [facility] updated. Scripts called into preferred pharmacy. All med rights confirmed prior to administration. Red flags discussed. ALL times are approx. ....................... ....................... ....................... ....................... ....................... ....................... ... [facility] Consulted: Mirta Bustamante ....................... ....................... ....................... ....................... ....................... ....................... ... Disposition: Fulfilled SEGMD: seen by our service 10/22- dx with covid - given azithro/ guaifenesin ER/prednisone- patient worsened and presented to ED 10/25- - as above Mirta Bustamante MD [address] [facility],[address], [place], [address], [facility] - [employer] 11/13/2024 14:53:58 11/15/2024 text/html [facility] Nurse Triage [...] ....................... ....................... ....................... ....................... ....................... ....................... ... Paper Cap Machine Operator Note From Katheryn Ma: Sent [...] to ED multiple times, been evaluated by digital media director and [facility]. Pt states she has been [...] Duo neb administered. Pt reports little improvement. [facility] consulted and pt is advised she needs to be transported to ED for further eval since previous treatments don't appear to be working. Pt initially resists idea of going to ED, but then agrees to transport to [facility] ED. 911 called. Pt calms while waiting for ambulance. Pt care transferred to [facility]. ....................... ....................... ....................... ....................... ....................... ....................... ... [facility] Consulted: Pricila Du ....................... ....................... ....................... ....................... ....................... ....................... ... Disposition: Fulfilled Pricila Du MD [address] [place] [address],[address], [place], [phone], [employer] [facility] [employer] 11/15/2024 16:37:46 12/17/2024 text/html [facility] Nurse Triage Notes (Watson Garza): Reason For Request: asthma Patient Reports: Increased work of breathing/labored with or without fever; Needs to sleep sitting up, can t catch breath; Lower extremity swelling; Sputum increase ; Cough; Shortness of breath with exertion; Diaphoretic/Sweating; Describes as crushing ; Shortness of Breath Denies: Unable to [...] Rheumatoid Arthritis, Asthma PMH Reviewed at 12/17/2024 - 10:48 Allergies Reviewed at 12/17/2024 - 10:48 Comments: Press Officer verified the Pt.'s name//address and phone number. [...] - Concerned expressed - Hx Bronchial asthma Paper Cap Machine Operator Organization Information for Kieran Murrieta [employer] Legal Name: [facility] Address: [address] [place] [address], [address] [address], Automobile Mechanic: Joesph Graham MD [facility] No.: [id number] Paper Cap Machine Operator POC Test Results from Kieran Murrieta - ALS Rapid influenza antigen (12:53:42) Flu: - Rapid COVID antigen (12:53:42) COVID: - ....................... ....................... ....................... ....................... ....................... ....................... ... Paper Cap Machine Operator Note From Kieran Murrieta: This 69-year-old [...] questions and is agreeable to this plan. [facility] Lab Orders: rapid SARS CoV 2 Ag, QL IA, respiratory specimen: Performed rapid flu (A+B): Performed [facility] Medication Orders: methylprednisolone sod succ (PF) 125 mg/2 mL solution for injection: Administered Comment: 62 mg IVP azithromycin 500 mg tablet: Administered ....................... ....................... ....................... ....................... ....................... ....................... ... [facility] Consulted: Yefri Peck ....................... ....................... ....................... ....................... ....................... ....................... ... Disposition: Fulfilled Jerman Peck MD [address] [place] [address],[address], [place], [phone], [employer] 12/17/2024 14:52:16 12/18/2024 text/html [facility] Nurse Triage [...] ....................... ....................... ....................... ....................... ....................... ....................... ... Paper Cap Machine Operator Note From Bruno Clarke: Dispatched to [...] signs of trauma noted. Blood glucose 147. [facility] consulted. Pt was advised to seek a further work up in the ED. Pt agreed but stated her daughter was on her way and she would prefer she take her to the ED. Red flags discussed. ALL times are approx. ....................... ....................... ....................... ....................... ....................... ....................... ... [facility] Consulted: Aida Ramos ....................... ....................... ....................... ....................... ....................... ....................... ... Disposition: Fulfilled Aida Ramos MD [address] [facility],[address], [place], [phone], [facility] 12/18/2024 13:58:24 OBGyn Episode No OBEpisode recorded.
== END 2025-04-24 14:51 | disposition home or self-care (01) ==
LOC: HO.HMCC 13:59
PROVIDERS: PCP Internal Medicine; Visit Provider Internal Medicine
DX: E11.9 Type 2 diabetes mellitus without complications (principal); M06.9 Rheumatoid arthritis, unspecified; Z91.81 History of falling; H81.13 Benign paroxysmal vertigo, bilateral; M48.062 Spinal stenosis, lumbar region with neurogenic claudication; M17.0 Bilateral primary osteoarthritis of knee; M54.41 Lumbago with sciatica, right side; G89.29 Other chronic pain; Z98.890 Other specified postprocedural states; M62.838 Other muscle spasm; M79.7 Fibromyalgia; Z74.09 Other reduced mobility

== ENCOUNTER 2025-04-25 15:43 | Outpatient (AMB) | payer OTHER, SELFPAY ==
--- OUTSIDE RECORDS SUMMARY | 2025-04-25 15:45 | XMS_ITS | Data Portability ---
Author Organization [employer] [facility], [facility] Address [address] [place] [address] Care Team Providers [employer] Salesperson Name Role Phone HIM CCA OTHER BERNIENEHAL Primary Care Provider [phone] Assessment Encounter Date Assessment Date Assessment LastModified by Organization Details LastModified Time 11/13/2024 11/13/2024 I provided real -time medical direction via phone for this encounter, and was available for additional phone based assistance as needed. I have reviewed and agree with the Assessment and Plan as documented by the Shellfish [employer] Laborer. We discussed the diagnostic uncertainty of home [...] to call 911- verbalized understanding of instruction [email or web address] Not available 11/13/2024 12:16:00 11/15/2024 11/15/2024 I provided real -time medical direction via phone for this encounter and was available for additional phone-based assistance as needed. I have reviewed and agree with the Assessment and Plan as documented by the Shellfish Processing Laborer. Patient given the opportunity to ask questions. [...] has also been prescribed antibiotics by her career and transition teacher. She feels like her feet are swelling. Overall feels significantly unwell. Per pick pulling machine tender on the scene, patient with mild to moderate distress. Increased work of breathing. Vitals as above. Wheezing auscultated per pick pulling machine tender on the scene. Impression: Asthma with acute [...] workup and evaluation. Expect call made for [facility] ED. Allergies: Reviewed [email or web address] Not available 11/15/2024 16:37:30 Plan of Treatment Reminders Order Date Submit Date Provider Last Modified By Organization Details Last Modified Time Details Appointments None recorded. Lab rapid SARS CoV 2 Ag, QL IA, respiratory specimen [address], [id number] 5 17:17:28 rapid flu (A+B) [address], [address] [place] [address] 5 17:17:29 rapid SARS CoV 2 Ag, QL IA, respiratory specimen 2024 025 [email or web address] [address], [address] 5 12:15:13 rapid flu (A+B) 2024 025 [email or web address] [address], [address] 5 12:15:13 BMP, serum or plasma 2024 025 [email or web address] 0 [facility], [address] [place] [address], [phone] 5 12:15:13 rapid SARS CoV 2 Ag, QL IA, respiratory specimen 2024 [facility], [address] [place] [address], [phone] 5 20:47:11 rapid flu (A+B) 2024 025 [facility], [address] [place] [address], [id number] 5 20:46:53 Referral None recorded. Procedures None recorded. Surgeries None recorded. Imaging None recorded. Medication Orders prednisone 20 mg tablet 2024 025 [facility], [address] [place], [address], 5 13:15:57 methylpredn isolone sod succ (PF) 125 mg/2 mL solution for injection 2024 025 [email or web address] [facility], [address] [place], [address], 5 13:15:25 azithromyci n 500 mg tablet 2024 025 [email or web address] [facility], [address] [place], [address], 5 13:15:25 azithromyci n 250 mg tablet 2024 025 [facility], [address] [place], [address], 5 13:15:55 benzonatate 100 mg capsule 2024 025 [facility], [address] [place], [address], 5 13:15:52 ipratropium 0.5 mg-albutero l 3 mg (2.5 mg base)/3 mL nebulizatio n soln 2024 025 [email or web address] 0 [facility], [address] [place], [address], 5 12:15:13 prednisone 20 mg tablet 2024 025 [email or web address] 0 [facility], [address] [place], [address], 5 12:15:13 prednisone 20 mg tablet 2024 025 [facility], [address] [place], [address], 5 12:16:10 benzonatate 100 mg capsule 2024 025 [email or web address] 0 [facility], [address] [place], [address], 5 12:15:13 benzonatate 200 mg capsule 2024 025 [email or web address] 0 [facility], [address] [place], [address], 5 13:14:31 ipratropium 0.5 mg-albutero l 3 mg (2.5 mg base)/3 mL nebulizatio n soln 2024 025 [facility], [address] [place], [address], 5 12:16:07 lactated Ringers intravenous solution 2024 025 [email or web address] 0 [facility], [address] [place], [address], 5 12:15:13 ibuprofen 200 mg tablet 2024 025 [facility], [address] [place], [address], 5 16:37:55 prednisone 20 mg tablet 2024 025 [facility], [address] [place], [address], 5 16:37:55 prednisone 20 mg tablet 2024 025 [facility], [address] [place], [address], 5 16:39:40 azithromyci n 250 mg tablet 2024 025 [facility], [address] [place], [address], 5 16:37:55 azithromyci n 250 mg tablet 2024 025 [facility], [address] [place], [address], 5 16:39:37 guaifenesin ER 600 mg tablet, extended release 12 hr 2024 025 [facility], [address] [place], [address], 5 16:39:42 Patient TargetsNo targets recorded. Patient InstructionsNo instructions recorded. Reason for Referral None Reported. Results Created Date Observation Date Name Description Value Unit Range Abnormal Flag Note LastModifiedBy Organization Detail LastModifiedTime 11/13/1911/13/2024 BMP, serum or plasm a BUN 25 Not Available [facility] [address] [place] [address], [id number] 11/13/2024 11:39:21 11/13/19 25 11/13/2024 rapid flu (A+B) Flu negati ve Not Available Main - [facility] [address] [place] [address], [id number] 11/13/2024 11:39:31 11/13/1911/13/2024 rapid SARS CoV 2 Ag, QL IA, respi rator y speci men rapid SARS CoV 2 Ag, QL IA, respiratory specimen negati ve Not Available Main - [facility] ed [address] [place] [address], [phone] 11/13/2024 11:39:30 Result Notes None recorded. Medical [...] Updated DateTime 5 97 % 97 % 57654.6 4 g 108 /min 162.56 cm 18 /min 102.4 [degF] 133/84 mm[Hg] Not Available [employer] 5 16:23:19 Date Recorded Heart rate Oxygen saturation Oxygen saturation in Arterial blood by Pulse oximetry Body weight Body temperature Respiratory rate Systolic And Diastolic Provider Name and Address Organization Details Last Updated DateTime 5 87 /min 96 % 96 % 90999.4 g 98.9 [degF] 18 /min 158/90 mm[Hg] Not Available [employer] 5 11:13:58 Date Recorded Oxygen saturation Oxygen saturation in Arterial blood by Pulse oximetry Body temperature Heart rate Respiratory rate Systolic And Diastolic Provider Name and Address Organization Details Last Updated DateTime 5 98 % 98 % 98.1 [degF] 82 /min 18 /min 136/77 mm[Hg] Not Available [employer] 5 14:12:15 Date Recorded Heart rate Respiratory rate Oxygen saturation Oxygen saturation in Arterial blood by Pulse oximetry Body temperature Systolic And Diastolic Provider Name and Address Organization Details Last Updated DateTime 5 84 /min 18 /min 96 % 96 % 97.9 [degF] 128/79 mm[Hg] Not Available [employer] 12:55:12 Date Recorded Oxygen saturation Oxygen saturation in Arterial blood by Pulse oximetry Body temperature Respiratory rate Heart rate Systolic And Diastolic Provider Name and Address Organization Details Last Updated DateTime 98 % 98 % 98.9 [degF] 16 /min 74 /min 150/84 mm[Hg] Not Available [employer] - production 13:10:57 Social History None recorded. Functional Status None recorded. Mental Status None recorded. Family History Nothing Reported. Medical History No medical history recorded. Gynecological HistoryNo gynecological history recorded. Obstetrics History GPAL:G 0 P 0 0 0 0 Past Encounters Encounter ID Performer Location Encounter Start Date Encounter Closed Date Diagnosis/Indication Diagnosis SNOMED-CT Code Diagnosis ICD10 Code Diagnosis Note [id number] Magali Montana MD Main - [facility] [address] [place] [phone] 11/22/2023 13:49:41 11/23/2023 10:14:11 Acute low back pain 473233959 M54.50 68 yo w/ chronic back pain [...] to 15mg toradol IM and help from pick pulling machine tender to reschedule pain clinic appt as soon as possible. [id number] Emiliano Roy MD Main - [facility] [address] [place] [phone] 04/06/2024 13:49:55 04/06/2024 20:33:11 Pain of left knee joint 3316848974 57438 M25.562 [id number] Liza Davey MD Main - [facility] [address] [place] [id number] 05/25/2024 19:05:15 05/26/2024 11:41:59 Postoperative pain 838279330 G89.18 [id number] Asya Prater MD Main - [facility] [address] [place] [phone] 06/10/2024 15:12:21 06/11/2024 18:23:36 Dizziness 660765458 R42 As noted, we were called to see this patient regarding concerns of dizziness. Evaluation in the field was performed by my pick pulling machine tender colleague, as noted above, I provided real-time [...] ly changes to mentation, chest pain, dysnea. [id number] Asya Prater MD Main - [facility] [address] [place] [phone] 07/25/2024 19:57:02 08/21/2024 18:04:13 Pain of left knee joint [id number] 63779 M25.562 As noted, we were called to see this patient regarding concerns of knee pain. Evaluation in the field was performed by my pick pulling machine tender colleague, as noted above, I provided real-time [...] changes to consciousn ess, chest pain, dyspnea. [id number] Jaron Sanderson MD Main - [facility] [address] [place] [id number] 09/20/2024 23:04:04 09/21/2024 08:55:28 Neck pain [id number] M54.2 [id number] Asya Prater MD Main - [facility] [address] [place] [phone] 10/22/2024 16:23:16 10/23/2024 00:19:26 Dyspnea 349565905 R06.00 As noted, we were called to see this patient regarding concerns of cough and dyspnea. Evaluation in the field was performed by my pick pulling machine tender colleague, as noted above, I provided real-time [...] prednisone 20mg x 5 days for possible asthma/DIRECTOR OF SERVICES D flare, as well as guafenesin . [...] to consciousn ess, chest pain, worsened breathing. [id number] Mirta Bustamante MD Main - [facility] [address] [place] [phone] 0 11/13/2024 11:13:56 11/13/2024 21:25:11 Exacerbation of moderate persistent asthma [id number] J45.41 s/p viral illness- no fever- no [...] that is covered/re d flags reviewed Dehydration 26414755 E86 .0 pat. clinically dry / BUN 25- felt better after ivf [id number] Pricila Du MD Main - [facility] [address] [place] [phone] 11/15/2024 13:51:01 11/15/2024 19:52:39 Dyspnea 268438285 R06.00 [id number] Jerman Peck MD Main - [facility] [address] [place] [phone] 12/17/2024 12:55:10 12/18/2024 09:46:50 Exacerbation of moderate persistent asthma 931443390 J45.41 COVID/flu negative. IV Methylpred nisone x1 [...] to present for higher level of care. [id number] Aida Ramos MD Main - [facility] [address] [place] [phone] 12/18/2024 13:10:54 12/18/2024 21:29:57 Dizziness 131012282 R42 Evaluation in the field was performed by my pick pulling machine tender colleague, as noted above, I provided real-time direction and supervisio n for this visit. 69yo F endorsing fall with possible LOC last night iso new onset dizziness. Endorsing intermitte nt focal neurologic sx include L hand numbness, L sided weakness. on pick pulling machine tender eval VS unremarkab le, exam without focal [...] Marks Member ID Guarantor Name 12/17/2024 1 [facility] - DOS ON OR AFTER 2023 - DUAL ELIGIBLE - FPC OPTIONS AND ONE CARE (MEDICARE REPLACEMENT/ADV ANTAGE - HMO) Cherry Cool [id number] Cherry Cool Notes Date Note Type Note [...] Chief Complaints: Cough, Fever/chillsPMH: Hypertension, Rheumatoid ArthritisComments: Local Hazmat Driver verified the Pt.'s name//address and phone number. [...] S/S not improving - Wellness visit requested. Shellfish Processing Laborer Organization Information for Kieran Murrieta Business Legal Name: [facility] Address: [address] [place] [address], [address] [address], Manager Creative: Joesph Graham MD KOFI No.: [id number] [employer] POC Test Results from Kieran Murrieta Rapid COVID antigen (17:42:26) COVID: + Rapid influenza antigen (17:42:28) Flu: - ....................... ....................... ....................... ....................... ....................... ....................... ... Shellfish Processing Laborer Note From Kieran Murrieta: This 69-year-old female with a history including but not limited to hypertension, COPD and rheumatoid arthritis requested a visit today to address one week of cough producing yellow sputum, rhinorrhea, body aches and subjective fever. Patient states she went to [facility] ED last night was not diagnosed with anything and did not have any medications prescribed. Patient states she is been using her albuterol nebulizer machine twice a day and is not been using any other jeaz-lmx-cvjwbzn medications. Patient is requesting an antibiotic, prednisone, [...] extremity edema. Rapid COVID positive and flu negative.[facility] contacted and the patient was treated with [...] ....................... ....................... ....................... ....................... ....................... ....................... ... [facility] Consulted: Asya Prater ....................... ....................... ....................... ....................... ....................... ....................... ... Disposition: Reny Prater MD [address] [place] [address],[address], [place], [address], [email or web address] 10/22/2024 20:18:49 11/13/2024 text/html [facility] Nurse Triage Notes (Holli Miller [...] Speaking full sentences without trouble breathing- [place] [employer]fish Processing Laborer Organization Information for Bruno Clarke Legal Name: [employer]. Address: [address] [place] [address], Manager Creative: Jared Zapata MD CLIA No.: [id number] [employer] Laborer POC Test Results from Bruno Clarke iSTAT Chem8+ (11:35:00) Na: 137 mEq/L K: 4.5 mEq/L Cl: 106 mEq/L iCa: 1.15 mmol/L TCO2: 23 mmol/L Glu: 147 mg/dL BUN: 25 mg/dL Crea: 0.7 mg/dL Hct: 39 % Hb: 13.3 g/dL A Rapid COVID antigen (11:35:03) COVID: - Rapid influenza antigen (11:35:06) Flu: - ....................... ....................... ....................... ....................... ....................... ....................... ... [employer]fish Processing Laborer Note From Bruno Clarke: Dispatched to the [...] soft non tender/distended, pupils PERRL, -edema/swelling, Afebrile. [facility] consulted. IV (20g R hand) with blood draw, BMP, 1L LR given over 1 hour with reassessment every 15 minutes, 200mg Benzonatate and 40mg Prednisone given PO, DuoNeb with good effect. [facility] updated. Scripts called into preferred pharmacy. All med rights confirmed prior to administration. Red flags discussed. ALL times are approx. ....................... ....................... ....................... ....................... ....................... ....................... ... [facility] Consulted: Mirta Bustamante ....................... ....................... ....................... ....................... ....................... ....................... ... Disposition: Fulfilled SEGMD: seen by our service 10/22- dx with covid - given azithro/ guaifenesin ER/prednisone- patient worsened and presented to ED 10/25- - as above Mirta Bustamante MD [address] [facility],[address], [place], [address], [facility] - [employer] 11/13/2024 14:53:58 11/15/2024 text/html [facility] Nurse Triage [...] ....................... ....................... ....................... ....................... ....................... ....................... ... [employer] Laborer Note From Katheryn Ma: Sent to a [...] to ED multiple times, been evaluated by career and transition teacher and [facility]. Pt states she has [...] Duo neb administered. Pt reports little improvement. [facility] consulted and pt is advised she needs to be transported to ED for further eval since previous treatments don't appear to be working. Pt initially resists idea of going to ED, but then agrees to transport to [facility] ED. 911 called. Pt calms while waiting for ambulance. Pt care transferred to [facility] Dept. ....................... ....................... ....................... ....................... ....................... ....................... ... [facility] Consulted: Pricila Du ....................... ....................... ....................... ....................... ....................... ....................... ... Disposition: Fulfilled Pricila Du MD [address] [place] [address],[address], [place], [address], [address] - [employer] 11/15/2024 16:37:46 12/17/2024 text/html [facility] Nurse Triage [...] Allergies Reviewed at 12/17/2024 - 10:48 Comments: Local Hazmat Driver verified the Pt.'s name//address and phone number. [...] - Concerned expressed - Hx Bronchial asthma Shellfish Processing Laborer Organization Information for Kieran Murrieta [employer] Legal Name: [facility] Address: [address] [place] [address], [address] [address], Manager Creative: Joesph Graham MD [facility] No.: [id number] Shell[employer] Processing Laborer POC Test Results from Kieran Murrieta - ALS Rapid influenza antigen (12:53:42) Flu: - Rapid COVID antigen (12:53:42) COVID: - ....................... ....................... ....................... ....................... ....................... ....................... ... [employer] Laborer Note From Kieran Murrieta: This 69-year-old female [...] questions and is agreeable to this plan. [facility] Lab Orders: rapid SARS CoV 2 Ag, QL IA, respiratory specimen: Performed rapid flu (A+B): Performed [facility] Medication Orders: methylprednisolone sod succ (PF) 125 mg/2 mL solution for injection: Administered Comment: 62 mg IVP azithromycin 500 mg tablet: Administered ....................... ....................... ....................... ....................... ....................... ....................... ... [facility] Consulted: Yefri Peck ....................... ....................... ....................... ....................... ....................... ....................... ... Disposition: Fulfilled Jerman Peck MD [address] [place] [address],[address], [place], [address], [email or web address] 12/17/2024 14:52:16 12/18/2024 text/html [facility] Nurse Triage [...] ....................... ....................... ....................... ....................... ....................... ....................... ... [employer] Lab[employer] Note From Bruno Clarke: Dispatched to the [...] signs of trauma noted. Blood glucose 147. [facility] consulted. Pt was advised to seek a further work up in the ED. Pt agreed but stated her daughter was on her way and she would prefer she take her to the ED. Red flags discussed. ALL times are approx. ....................... ....................... ....................... ....................... ....................... ....................... ... [facility] Consulted: Aida Ramos ....................... ....................... ....................... ....................... ....................... ....................... ... Disposition: Fulfilled Aida Ramos MD [address] [facility],[address], [place], [address], [facility] - [employer] [facility] 12/18/2024 13:58:24 OBGyn Episode No OBEpisode recorded.
--- NOTE | 2025-04-25 15:51 | HO.SPINEOV ---
Intake Visit Reasons: MRI f/u Intake Note: Ms. Uriel Cool is here today to F/u on the results of MRI. Skiver Hand Required: No Allergies acetaminophen (From Tylenol) Allergy (Severe, Verified 04/24/25 14:07) Shortness of Breath ibuprofen Allergy (Severe, Verified 04/24/25 14:07) shortness of breath canned food Allergy (Intermediate, Uncoded 02/26/25 14:13) Shortness of Breath Assessment & Plan Assessment & Plan (1) Lumbar radiculopathy: Code(s): M54.16 - Radiculopathy, lumbar region Category: Medical Plan Dear colleague, On 04/25/2025 I saw for follow-up Cherry Cool to review a postoperative MRI. She continues to complain of a right-sided back pain, right knee pain and distal leg pain. She states that she goes to the emergency room every 3 weeks where she gets Dilaudid which helps her for a week. She wants me to prescribe pain medications. We repeated an MRI of the lumbar spine which shows status post L3-4 lumbar fusion without lumbar stenosis or foraminal stenosis. She has a known L5-S1 spondylolisthesis with moderate bilateral L5 foraminal stenosis. I explained to her that the MRI looks good as far as the surgery. There are no new insights explaining the right leg pain. I also told her that I do not prescribe pain medications. I will talk to our pain management team to see if they have a Medical solution. She does not want anymore injections. This also seems not a good treatment due to the fact she developed diabetes. I will call the patient after I have spoken to Dr. Queen. Coding Level of Care Code Est Pt Level 2 (15289) Diagnoses Lumbar radiculopathy M54.16
== END 2025-04-25 16:25 | disposition home or self-care (01) ==
LOC: HO.HNS 15:43
PROVIDERS: PCP Internal Medicine; Visit Provider Neurological Surgery
DX: M54.16 Radiculopathy, lumbar region (principal)
CPT/HCPCS: 99212

== ENCOUNTER → 2025-04-25 15:43 | Outpatient (BNVA) | payer OTHER, SELFPAY | PROVIDERS: PCP Internal Medicine; Visit Provider Neurological Surgery | DX: Z71.2 Person consulting for explanation of examination or test findings (principal); M54.16 Radiculopathy, lumbar region | CPT/HCPCS: 99212 ==

== ENCOUNTER 2025-05-03 08:49 | Outpatient (AMB) | payer OTHER, SELFPAY ==
--- OUTSIDE RECORDS SUMMARY | 2025-05-03 09:07 | XMS_ITS | Data Portability ---
Author Organization [facility], [facility] Address [address] [place] [address] Care Team Providers Care Type Cutter Name Role Phone HIM CCA OTHER BERNIENEHAL Primary Care Provider Assessment Encounter Date Assessment Date Assessment LastModified by Organization Details LastModified Time 11/13/2024 11/13/2024 I provided real -time medical direction via phone for this encounter, and was available for additional phone based assistance as needed. I have reviewed and agree with the Assessment and Plan as documented by the Volcanology Professor. We discussed the diagnostic uncertainty of home [...] to call 911- verbalized understanding of instruction [email or web address] Not available 11/13/2024 12:16:00 11/15/2024 11/15/2024 I provided real -time medical direction via phone for this encounter and was available for additional phone-based assistance as needed. I have reviewed and agree with the Assessment and Plan as documented by the Volcanology Professor. Patient given the opportunity to ask questions. [...] has also been prescribed antibiotics by her entry level programmer. She feels like her feet are swelling. Overall feels significantly unwell. Per light truck driver on the scene, patient with mild to moderate distress. Increased work of breathing. Vitals as above. Wheezing auscultated per light truck driver on the scene. Impression: Asthma with acute [...] workup and evaluation. Expect call made for [facility] ED. Allergies: Reviewed [place] [id number] Not available 11/15/2024 16:37:30 Plan of Treatment Reminders Order Date Submit Date Provider Last Modified By Organization Details Last Modified Time Details Appointments None recorded. Lab rapid SARS CoV 2 Ag, QL IA, respiratory specimen [address], [id number] 5 17:17:28 rapid flu (A+B) [address], [id number] 5 17:17:29 rapid SARS CoV 2 Ag, QL IA, respiratory specimen 2024 025 [email or web address], [address] [place] [address] 5 12:15:13 rapid flu (A+B) 2024 025 [email or web address] [address], [address] 5 12:15:13 BMP, serum or plasma [email or web address] [facility], [address] [place] [address], [id number] 5 12:15:13 rapid SARS CoV 2 Ag, QL IA, respiratory specimen 2024 [facility], [address] [place] [address], [id number] 5 20:47:11 rapid flu (A+B) 2024 025 [facility], [address] [place] [address], [id number] 5 20:46:53 Referral None recorded. Procedures None recorded. Surgeries None recorded. Imaging None recorded. Medication Orders prednisone 20 mg tablet 2024 025 [facility], [address] [place], [address], 5 13:15:57 methylpredn isolone sod succ (PF) 125 mg/2 mL solution for injection 2024 025 [email or web address] [facility], [address] [place], [address], 5 13:15:25 azithromyci n 500 mg tablet 2024 025 [email or web address] [facility], [address] [place], [address], 5 13:15:25 azithromyci n 250 mg tablet 2024 025 [facility], [address] [place], [address], 5 13:15:55 benzonatate 100 mg capsule 2024 025 [facility], [address] [place], [address], 5 13:15:52 ipratropium 0.5 mg-albutero l 3 mg (2.5 mg base)/3 mL nebulizatio n soln 2024 025 [email or web address] 0 [facility], [address] [place], [address], 5 12:15:13 prednisone 20 mg tablet 2024 025 [email or web address] 0 [facility], [address] [place], [address], 5 12:15:13 prednisone 20 mg tablet 2024 025 [facility], [address] [place], [address], 5 12:16:10 benzonatate 100 mg capsule 2024 025 [email or web address] 0 [facility], [address] [place], [address], 5 12:15:13 benzonatate 200 mg capsule 2024 025 [email or web address] 0 [facility], [address] [place], [address], 5 13:14:31 ipratropium 0.5 mg-albutero l 3 mg (2.5 mg base)/3 mL nebulizatio n soln 2024 025 [facility], [address] [place], [address], 5 12:16:07 lactated Ringers intravenous solution 2024 025 [email or web address] 0 [facility], [address] [place], [address], 5 12:15:13 ibuprofen 200 mg tablet 2024 025 [facility], [address] [place], [address], 5 16:37:55 prednisone 20 mg tablet 2024 025 [facility], [address] [place], [address], 5 16:37:55 prednisone 20 mg tablet 2024 025 [facility], [address] [place], [address], 5 16:39:40 azithromyci n 250 mg tablet 2024 025 [facility], [address] [place], [address], 5 16:37:55 azithromyci n 250 mg tablet 2024 025 [facility], [address] [place], [address], 5 16:39:37 guaifenesin ER 600 mg tablet, extended release 12 hr 2024 025 [facility], [address] [place], [address], 5 16:39:42 Patient TargetsNo targets recorded. Patient InstructionsNo instructions recorded. Reason for Referral None Reported. Results Created Date Observation Date Name Description Value Unit Range Abnormal Flag Note LastModifiedBy Organization Detail LastModifiedTime 11/13/1911/13/2024 BMP, serum or plasm a BUN 25 Not Available [facility] - [facility] [address] [place] [address], [phone] 11/13/2024 11:39:21 11/13/19 25 11/13/2024 rapid flu (A+B) Flu negati ve Not Available Main - [facility] [address] [place] [address], [id number] 11/13/2024 11:39:31 11/13/1911/13/2024 rapid SARS CoV 2 Ag, QL IA, respi rator y speci men rapid SARS CoV 2 Ag, QL IA, respiratory specimen negati ve Not Available Main - [facility] ed [address] [place] [address], [phone] 11/13/2024 11:39:30 Result Notes None recorded. Medical [...] Updated DateTime 5 97 % 97 % 89862.6 4 g 108 /min 162.56 cm 18 /min 102.4 [degF] 133/84 mm[Hg] Not Available [facility] 5 16:23:19 Date Recorded Heart rate Oxygen saturation Oxygen saturation in Arterial blood by Pulse oximetry Body weight Body temperature Respiratory rate Systolic And Diastolic Provider Name and Address Organization Details Last Updated DateTime 5 87 /min 96 % 96 % 49541.4 g 98.9 [degF] 18 /min 158/90 mm[Hg] Not Available [facility] 5 11:13:58 Date Recorded Oxygen saturation Oxygen saturation in Arterial blood by Pulse oximetry Body temperature Heart rate Respiratory rate Systolic And Diastolic Provider Name and Address Organization Details Last Updated DateTime 5 98 % 98 % 98.1 [degF] 82 /min 18 /min 136/77 mm[Hg] Not Available [employer] 5 14:12:15 Date Recorded Heart rate Respiratory rate Oxygen saturation Oxygen saturation in Arterial blood by Pulse oximetry Body temperature Systolic And Diastolic Provider Name and Address Organization Details Last Updated DateTime 5 84 /min 18 /min 96 % 96 % 97.9 [degF] 128/79 mm[Hg] Not Available [employer] 12:55:12 Date Recorded Oxygen saturation Oxygen saturation in Arterial blood by Pulse oximetry Body temperature Respiratory rate Heart rate Systolic And Diastolic Provider Name and Address Organization Details Last Updated DateTime 98 % 98 % 98.9 [degF] 16 /min 74 /min 150/84 mm[Hg] Not Available [employer] - production 13:10:57 Social History None recorded. Functional Status None recorded. Mental Status None recorded. Family History Nothing Reported. Medical History No medical history recorded. Gynecological HistoryNo gynecological history recorded. Obstetrics History GPAL:G 0 P 0 0 0 0 Past Encounters Encounter ID Performer Location Encounter Start Date Encounter Closed Date Diagnosis/Indication Diagnosis SNOMED-CT Code Diagnosis ICD10 Code Diagnosis Note [id number] Magali Montana MD Main - [facility] [address] [place] [id number] 11/22/2023 13:49:41 11/23/2023 10:14:11 Acute low back pain 361138740 M54.50 68 yo w/ chronic back pain [...] to 15mg toradol IM and help from light truck driver to reschedule pain clinic appt as soon as possible. [id number] Emiliano Roy MD Main - [facility] [address] [place] [id number] 04/06/2024 13:49:55 04/06/2024 20:33:11 Pain of left knee joint 9535210739 15571 M25.562 [id number] Liza Davey MD Main - [facility] [address] [place] [id number] 05/25/2024 19:05:15 05/26/2024 11:41:59 Postoperative pain 919469194 G89.18 [id number] Asya Prater MD Main - [facility] [address] [place] [phone] 06/10/2024 15:12:21 06/11/2024 18:23:36 Dizziness 922590140 R42 As noted, we were called to see this patient regarding concerns of dizziness. Evaluation in the field was performed by my light truck driver colleague, as noted above, I provided real-time [...] ly changes to mentation, chest pain, dysnea. [id number] Asya Prater MD Main - [facility] [address] [place] [phone] 07/25/2024 19:57:02 08/21/2024 18:04:13 Pain of left knee joint [id number] 09881 M25.562 As noted, we were called to see this patient regarding concerns of knee pain. Evaluation in the field was performed by my light truck driver colleague, as noted above, I provided real-time [...] changes to consciousn ess, chest pain, dyspnea. [id number] Jaron Sanderson MD Main - [facility] [address] [place] [phone] 09/20/2024 23:04:04 09/21/2024 08:55:28 Neck pain 03368239 M54.2 [id number] Asya Prater MD Main - [facility] [address] [place] [id number] 10/22/2024 16:23:16 10/23/2024 00:19:26 Dyspnea 577402125 R06.00 As noted, we were called to see this patient regarding concerns of cough and dyspnea. Evaluation in the field was performed by my light truck driver colleague, as noted above, I provided real-time [...] prednisone 20mg x 5 days for possible asthma/[address] [employer] D flare, as well as guafenesin . [...] to consciousn ess, chest pain, worsened breathing. [id number] Mirta Bustamante MD Main - [facility] [address] [place] [phone] 11/13/2024 11:13:56 11/13/2024 21:25:11 Exacerbation of moderate persistent asthma [id number] J45.41 s/p viral illness- no fever- no [...] that is covered/re d flags reviewed Dehydration 16835716 E86 .0 pat. clinically dry / BUN 25- felt better after ivf [id number] Pricila Du MD Main - [facility] [address] [place] [id number] 11/15/2024 13:51:01 11/15/2024 19:52:39 Dyspnea 955260843 R06.00 [id number] Jerman Peck MD Main - [facility] [address] [place] [phone] 12/17/2024 12:55:10 12/18/2024 09:46:50 Exacerbation of moderate persistent asthma 162971912 J45.41 COVID/flu negative. IV Methylpred nisone x1 [...] to present for higher level of care. [id number] Aida Ramos MD Main - [facility] [address] [place] [phone] 0 12/18/2024 13:10:54 12/18/2024 21:29:57 Dizziness 694068604 R42 Evaluation in the field was performed by my light truck driver colleague, as noted above, I provided real-time direction and supervisio n for this visit. 69yo F endorsing fall with possible LOC last night iso new onset dizziness. Endorsing intermitte nt focal neurologic sx include L hand numbness, L sided weakness. on light truck driver eval VS unremarkab le, exam without focal [...] Marks Member ID Guarantor Name 12/17/2024 1 [facility] - DOS ON OR AFTER 2023 - DUAL ELIGIBLE - HALFWAY OPTIONS AND ONE CARE (MEDICARE REPLACEMENT/ADV ANTAGE - HMO) Cherry Cool [id number] Cherry Cool Notes Date Note Type Note [...] Chief Complaints: Cough, Fever/chillsPMH: Hypertension, Rheumatoid ArthritisComments: Tableau Developer verified the Pt.'s name//address and phone [...] S/S not improving - Wellness visit requested. Volcanology Professor Organization Information for Kieran Murrieta Business Legal Name: [facility] Address: [address] [place] [address], [address] [address], Senior Production Planner: Joesph Graham MD KOFI No.: [id number] Volcanology Professor POC Test Results from Kieran Murrieta Rapid COVID antigen (17:42:26) COVID: + Rapid influenza antigen (17:42:28) Flu: - ....................... ....................... ....................... ....................... ....................... ....................... ... Volcanology Professor Note From Kieran Murrieta: This 69-year-old female with a history including but not limited to hypertension, COPD and rheumatoid arthritis requested a visit today to address one week of cough producing yellow sputum, rhinorrhea, body aches and subjective fever. Patient states she went to [place] ED last night was not diagnosed with anything and did not have any medications prescribed. Patient states she is been using her albuterol nebulizer machine twice a day and is not been using any other zgmd-civ-xornhvh medications. Patient is requesting an antibiotic, prednisone, [...] extremity edema. Rapid COVID positive and flu negative.[facility] contacted and the patient was treated with [...] ....................... ....................... ....................... ....................... ....................... ....................... ... [facility] Consulted: Asya Prater ....................... ....................... ....................... ....................... ....................... ....................... ... Disposition: Reny Prater MD [address] [place] [address],[address], [place], [address], [employer] 10/22/2024 20:18:49 11/13/2024 text/html [facility] Nurse Triage Notes (Holli Miller - [...] Speaking full sentences without trouble breathing- [place] Volcanology Professor Organization Information for Bruno Clarke Legal Name: [employer]. Address: [address] [place] [address], Senior Production Planner: Jared Zapata MD CLIA No.: [id number] Volcanology Professor POC Test Results from Bruno Clarke iSTAT Chem8+ (11:35:00) Na: 137 mEq/L K: 4.5 mEq/L Cl: 106 mEq/L iCa: 1.15 mmol/L TCO2: 23 mmol/L Glu: 147 mg/dL BUN: 25 mg/dL Crea: 0.7 mg/dL Hct: 39 % Hb: 13.3 g/dL A Rapid COVID antigen (11:35:03) COVID: - Rapid influenza antigen (11:35:06) Flu: - ....................... ....................... ....................... ....................... ....................... ....................... ... Volcanology Professor Note From Bruno Clarke: Dispatched to the [...] soft non tender/distended, pupils PERRL, -edema/swelling, Afebrile. [facility] consulted. IV (20g R hand) with blood draw, BMP, 1L LR given over 1 hour with reassessment every 15 minutes, 200mg Benzonatate and 40mg Prednisone given PO, DuoNeb with good effect. [facility] updated. Scripts called into preferred pharmacy. All med rights confirmed prior to administration. Red flags discussed. ALL times are approx. ....................... ....................... ....................... ....................... ....................... ....................... ... [facility] Consulted: Mirta Bustamante ....................... ....................... ....................... ....................... ....................... ....................... ... Disposition: Fulfilled SEGMD: seen by our service 10/22- dx with covid - given azithro/ guaifenesin ER/prednisone- patient worsened and presented to ED 10/25- - as above Mirta Bustamante MD [address] [facility],[address], [place], [address], [facility] 11/13/2024 14:53:58 11/15/2024 text/html [facility] Nurse Triage [...] ....................... ....................... ....................... ....................... ....................... ....................... ... Volcanology Professor Note From Katheryn Ma: Sent to a [...] to ED multiple times, been evaluated by entry level programmer and [facility]. Pt states she has been [...] Duo neb administered. Pt reports little improvement. [facility] consulted and pt is advised she needs to be transported to ED for further eval since previous treatments don't appear to be working. Pt initially resists idea of going to ED, but then agrees to transport to [facility] ED. 911 called. Pt calms while waiting for ambulance. Pt care transferred to [facility] Dept. ....................... ....................... ....................... ....................... ....................... ....................... ... [facility] Consulted: Pricila Du ....................... ....................... ....................... ....................... ....................... ....................... ... Disposition: Fulfilled Pricila Du MD [address] [place] [address],[address], [place], [phone], [place] - [facility] 11/15/2024 16:37:46 12/17/2024 text/html [facility] Nurse Triage [...] Allergies Reviewed at 12/17/2024 - 10:48 Comments: Tableau Developer verified the Pt.'s name//address and phone [...] - Concerned expressed - Hx Bronchial asthma Volcanology Professor Organization Information for Kieran Murrieta [employer] Legal Name: [facility] Address: [address] [place] [address], [address] [address], Senior Production Planner: Joesph Graham MD [facility] No.: [id number] Volcanology Professor POC Test Results from Kieran Murrieta - ALS Rapid influenza antigen (12:53:42) Flu: - Rapid COVID antigen (12:53:42) COVID: - ....................... ....................... ....................... ....................... ....................... ....................... ... Volcanology Professor Note From Kieran Murrieta: This 69-year-old female [...] questions and is agreeable to this plan. [facility] Lab Orders: rapid SARS CoV 2 Ag, QL IA, respiratory specimen: Performed rapid flu (A+B): Performed [facility] Medication Orders: methylprednisolone sod succ (PF) 125 mg/2 mL solution for injection: Administered Comment: 62 mg IVP azithromycin 500 mg tablet: Administered ....................... ....................... ....................... ....................... ....................... ....................... ... [facility] Consulted: Yefri Peck ....................... ....................... ....................... ....................... ....................... ....................... ... Disposition: Fulfilled Jerman Peck MD [address] [place] [address],[address], [place], [address], [employer] 12/17/2024 14:52:16 12/18/2024 text/html [facility] Nurse Triage [...] ....................... ....................... ....................... ....................... ....................... ....................... ... Volcanology Professor Note From Bruno Clarke: Dispatched to the [...] signs of trauma noted. Blood glucose 147. [facility] consulted. Pt was advised to seek a further work up in the ED. Pt agreed but stated her daughter was on her way and she would prefer she take her to the ED. Red flags discussed. ALL times are approx. ....................... ....................... ....................... ....................... ....................... ....................... ... [facility] Consulted: Aida Ramos ....................... ....................... ....................... ....................... ....................... ....................... ... Disposition: Fulfilled Aida Ramos MD [address] [facility],[address], [place], [address], [facility] 12/18/2024 13:58:24 OBGyn Episode No OBEpisode recorded.
--- NOTE | 2025-05-03 09:46 | MHC.PC.OV ---
Intake Visit Reasons: TV follow up Allergies acetaminophen (From Tylenol) Allergy (Severe, Verified 04/24/25 14:07) Shortness of Breath ibuprofen Allergy (Severe, Verified 04/24/25 14:07) shortness of breath canned food Allergy (Intermediate, Uncoded 02/26/25 14:13) Shortness of Breath Medication List - Last Reconciled 05/03/25 by Federico Yates MD [bed bars As directed NS] [adult diapers medium Use for incontinence episodes at night.] [adult pull-ups As directed NS] albuterol sulfate 2.5 mg (3 mL) inhalation Q4-6H PRN 30 days alcohol swabs (Alcohol Prep Pads) 1 pad topical DAILY alendronate (Fosamax) 70 mg PO QWEEK 90 days alum-mag hydroxide-simeth 200-200-20 mg/5 mL (Maalox Advanced) 10 mL PO ONCE PRN 30 days [bed table As directed] benzonatate 150 mg PO BID 15 days [Blood pressure monitor As directed] blood sugar diagnostic (FreeStyle Lite Strips) Check blood sugar once daily. blood-glucose meter (FreeStyle Lite Meter kit) Check blood sugar once daily capsaicin 0.025% 1 appl topical BID 30 days cetirizine 10 mg PO DAILY PRN cyclobenzaprine 10 mg PO TID PRN disposable gloves Size medium [disposable pads-up to 3/day As directed] doxepin 10 mg PO BEDTIME ipratropium-albuterol 0.5 mg-3 mg(2.5 mg base)/3 mL 3 mL inhalation Q6H PRN 3 weeks lancets (FreeStyle Lancets) Check blood sugar once daily. lisinopril 5 mg PO DAILY 90 days memantine 10 mg PO QAM [mobility scooter As directed NS] montelukast 10 mg PO DAILY nebulizer and compressor (Comp-Air Nebulizer Compressor) As directed [non-slip shower mat As directed NS] ondansetron HCl 4 mg PO Q8H PRN 30 days pantoprazole 40 mg PO DAILY@0630 [raised toilet seat As directed NS] [showering chairs As directed] simvastatin 20 mg PO BEDTIME walker As directed walker Use As directed NS [Walker with wheels As directed] Tobacco use date assessed: 01/12/25 Dental Screening Dental Screen Date: 01/12/25 HPI TV follow up HPI Details History - The patient is a 69-year-old female presenting with pain management concerns related to chronic nerve pain. left side of her scalp, that feels like shooting pain - The patient reports having pain for more than three years. - She describes difficulty sleeping due to the pain and expresses a strong aversion to taking cortisone injections, which she associates with the onset of her diabetes. - A previous MRI was done thru Neuro, when she saw Neuro for that problem, over two years ago, which reportedly did not show any abnormalities that might account for her pain. - The pain has been significant enough to impact her daily function and quality of life. has taken Gabapentine in past, that has not helped Diagnostic Results: - Labs: - Blood glucose at 6.2%, improved from 6.7% in December. - Cholesterol levels are noted to be slightly elevated at 155 mg/dL. Problem List - Diabetes Mellitus - Hyperlipidemia - Chronic Neuralgia scalp left side Patient Instructions - Continue managing diabetes with dietary modifications. - Attempt a course of Lyrica (25 mg at night) for nerve pain as discussed. - Follow up with pain management and consider consultation with a neurologist for further evaluation if pain persists. Review of Systems - General: No fever no chills - Neurological: no dizziness - Ear nose throat: No sore throat no hearing difficulty no ear pain - Cardiovascular: No syncope, no chest pain, no palpitations - Gastrointestinal: No nausea vomiting or diarrhea PFSH Medical History Cognitive disorder Hand numbness GERD (gastroesophageal reflux disease) Cold intolerance Rheumatoid arthritis Lumbar spinal stenosis RAÚL (obstructive sleep apnea) Trigger finger Sleep disorder breathing Latent tuberculosis Cough Asthma Chronic pain syndrome Myofascial muscle pain Osteoarthritis Fibromyalgia HTN (hypertension) Anxiety Surgical History Hx of ovarian cystectomy Hx of cervical discectomy History of lumbar surgery Family History Father Diabetes Mother Acute arthritis Other Mental health disorder Social History Household Members: None Housing: Apartment Are you a primary respiratory care program director to a significant other at home: No 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 Bj Ingram, Yolanda Glass, Dexter Ferguson and colleagues, with an educational jesus from [employer]. Physical exam (Primary Care) Tobacco/Smoking Status: Tobacco use Status Tobacco use date assessed 01/12/25 05/03/25 09:47 Patient Tobacco Use Status Never used Tobacco 05/03/25 09:47 e-Cigarette/Vaping Use Never Used 05/03/25 09:47 Thrive Assessment: Date of Thrive Assessment Date Thrive assessed 04/24/25 05/03/25 09:47 Telehealth Telehealth Telehealth Platform: [employer] Location of provider rendering services: practice address Location of patient: address on file Patient Identification confirmed using: Name, : Yes Telehealth method: video Patient verbally consented to treatment: Yes Patient verbally consented to billing insurance company: Yes Patient informed of any privacy concerns related to visit: Yes Minutes spent on Phone/Video with Pt.: 16 Coding Level of Care Code Tele Est Pt Level 3 (34405) Diagnoses Neuralgia and neuritis M79.2 Assessment & Plan Assessment & Plan (1) Neuralgia and neuritis: Code(s): M79.2 - Neuralgia and neuritis, unspecified Category: Medical Plan History - The patient is a 69-year-old female presenting with pain management concerns related to chronic nerve pain. left side of her scalp, that feels like shooting pain - The patient reports having pain for more than three years. - She describes difficulty sleeping due to the pain and expresses a strong aversion to taking cortisone injections, which she associates with the onset of her diabetes. - A previous MRI was done thru Neuro, when she saw Neuro for that problem, over two years ago, which reportedly did not show any abnormalities that might account for her pain. - The pain has been significant enough to impact her daily function and quality of life. has taken Gabapentine in past, that has not helped Diagnostic Results: - Labs: - Blood glucose at 6.2%, improved from 6.7% in December. - Cholesterol levels are noted to be slightly elevated at 155 mg/dL. Problem List - Diabetes Mellitus - Hyperlipidemia - Chronic Neuralgia scalp left side Patient Instructions - Continue managing diabetes with dietary modifications. - Attempt a course of Lyrica (25 mg at night) for nerve pain as discussed. - Follow up with pain management and consider consultation with a neurologist for further evaluation if pain persists. Medications: New pregabalin (Lyrica) 25 mg PO BEDTIME 30 caps 0RF
== END 2025-05-03 12:15 | disposition home or self-care (01) ==
LOC: HO.HMCC 08:50
PROVIDERS: PCP Internal Medicine; Visit Provider Internal Medicine
DX: M79.2 Neuralgia and neuritis, unspecified (principal)

== ENCOUNTER 2025-05-31 08:26 | Outpatient (AMB) | payer OTHER, SELFPAY ==
--- NOTE | 2025-05-31 09:18 | A.OFFPC_ITS ---
Intake Visit Reasons: Telehealth visit discuss med Allergies acetaminophen (From Tylenol) Allergy (Severe, Verified 04/24/25 14:07) Shortness of Breath ibuprofen Allergy (Severe, Verified 04/24/25 14:07) shortness of breath canned food Allergy (Intermediate, Uncoded 02/26/25 14:13) Shortness of Breath Medication List - Last Reconciled 05/31/25 by Federico Yates MD [bed bars As directed NS] [adult diapers medium Use for incontinence episodes at night.] [adult pull-ups As directed NS] albuterol sulfate 2.5 mg (3 mL) inhalation Q4-6H PRN 30 days alcohol swabs (Alcohol Prep Pads) 1 pad topical DAILY alendronate (Fosamax) 70 mg PO QWEEK 90 days alum-mag hydroxide-simeth 200-200-20 mg/5 mL (Maalox Advanced) 10 mL PO ONCE PRN 30 days [bed table As directed] benzonatate 150 mg PO BID 15 days [Blood pressure monitor As directed] blood sugar diagnostic (FreeStyle Lite Strips) Check blood sugar once daily. blood-glucose meter (FreeStyle Lite Meter kit) Check blood sugar once daily capsaicin 0.025% 1 appl topical BID 30 days capsaicin 0.075% 1 appl topical BID cetirizine 10 mg PO DAILY PRN cyclobenzaprine 5 mg PO TID PRN disposable gloves Size medium [disposable pads-up to 3/day As directed] doxepin 10 mg PO BEDTIME ipratropium-albuterol 0.5 mg-3 mg(2.5 mg base)/3 mL 3 mL inhalation Q6H PRN 3 weeks lancets (FreeStyle Lancets) Check blood sugar once daily. lisinopril 5 mg PO DAILY 90 days memantine 10 mg PO QAM [mobility scooter As directed NS] montelukast 10 mg PO DAILY nebulizer and compressor (Comp-Air Nebulizer Compressor) As directed [non-slip shower mat As directed NS] ondansetron HCl 4 mg PO Q8H PRN 30 days pantoprazole 40 mg PO DAILY@0630 [raised toilet seat As directed NS] [Rollator walker with seat Use As directed] [showering chairs As directed] simvastatin 20 mg PO BEDTIME walker As directed walker Use As directed NS Tobacco use date assessed: 01/12/25 Dental Screening Dental Screen Date: 01/12/25 HPI Telehealth visit discuss med HPI Details Chief Complaint The patient complains of ineffective pain management and sleep issues, along with anxiety. History of Present Illness The patient is a 69-year-old female presenting with fibromyalgia, chronic pain, sleep disturbances, and anxiety. Fibromyalgia: - The patient was diagnosed with fibromy algia by a archivist economic history. Rhumatoid arthritis ruled out - Reports persistent and severe pain, im pacting daily activities and quality of life. - Previously treated with duloxetine, wh [facility] she is considering resuming. Osteoarthritis: - Diagnosed by a surgeon with osteoarthr itis. - The patient reports chronic pain which interferes with daily functioning. Sleep Disturbances: - The patient reports experiencing sleep disturbances for the past week, stating she has not been sleeping well and is very tired. Anxiety: - The patient experiences significant an xiety, likely exacerbating her insomnia and overall discomfort. - Previously treated with Valium, by Tiffani العلي, she stopped follow up due to conflict Medication Issues: - Reports the medication Lyrica for hea d pain is ineffective. - Has been advised to avoid Tylenol due to allergies. - Desires a medication that provides rel axation and pain relief without the risk of dependency. Problem List - Fibromyalgia - Osteoarthritis - Sleep disturbances - Anxiety Patient Instructions - Begin duloxetine at 20 mg as directed. - Take tramadol 50 mg, only half a table t at night, and the other half if needed in the morning. - Return for follow-up in three weeks as discussed. Review of Systems - General: No fever no chills - Neurological: No headaches no dizziness - Ear nose throat: No sore throat no hearing difficulty no ear pain - Cardiovascular: No syncope, no chest pain, no palpitations - Gastrointestinal: No nausea vomiting or diarrhea PFSH Medical History Cognitive disorder Hand numbness GERD (gastroesophageal reflux disease) Cold intolerance Rheumatoid arthritis Lumbar spinal stenosis RAÚL (obstructive sleep apnea) Trigger finger Sleep disorder breathing Latent tuberculosis Cough Asthma Chronic pain syndrome Myofascial muscle pain Osteoarthritis Fibromyalgia HTN (hypertension) Anxiety Surgical History Hx of ovarian cystectomy Hx of cervical discectomy History of lumbar surgery Family History Father Diabetes Mother Acute arthritis Other Mental health disorder Social History Household Members: None Housing: Apartment Are you a primary cardiac care nurse to a significant other at home: No 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 Bj Ingram, Yolanda Glass, Dexter Ferguson and colleagues, with an educational jesus from [employer]. Physical exam (Primary Care) Tobacco/Smoking Status: Tobacco use Status Tobacco use date assessed 01/12/25 05/31/25 09:18 Patient Tobacco Use Status Never used Tobacco 05/31/25 09:18 e-Cigarette/Vaping Use Never Used 05/31/25 09:18 Thrive Assessment: Date of Thrive Assessment Date Thrive assessed 04/24/25 05/31/25 09:18 Telehealth Telehealth Telehealth Platform: [facility] Location of provider rendering services: practice address Location of patient: address on file Patient Identification confirmed using: Name, : Yes Telehealth method: video Patient verbally consented to treatment: Yes Patient verbally consented to billing insurance company: Yes Patient informed of any privacy concerns related to visit: Yes Minutes spent on Phone/Video with Pt.: 14 Coding Level of Care Code Tele Est Pt Level 3 (45381) Diagnoses Moderate episode of recurrent major depressive disorder F33.1 Active/Remission status: currently active Major depression episode severity: moderate Anxiety, generalized F41.1 Myofascial muscle pain M79.18 Fibromyalgia M79.7 Assessment & Plan Assessment & Plan (1) Major depression, recurrent: Code(s): F33.9 - Major depressive disorder, recurrent, unspecified Category: Medical Qualifiers: Active/Remission status: currently active Major depression episode severity: moderate Qualified Code(s): F33.1 - Major depressive disorder, recurrent, moderate (2) Anxiety, generalized: Code(s): F41.1 - Generalized anxiety disorder Category: Medical (3) Myofascial muscle pain: Code(s): M79.18 - Myalgia, other site Category: Medical (4) Fibromyalgia: Code(s): M79.7 - Fibromyalgia Category: Medical Plan Chief Complaint The patient complains of ineffective pain management and sleep issues, along with anxiety. History of Present Illness The patient is a 69-year-old female presenting with fibromyalgia, chronic pain, sleep disturbances, and anxiety. Fibromyalgia: - The patient was diagnosed with fibromyalgia by a archivist economic history. Rhumatoid arthritis ruled out - Reports persistent and severe pain, impacting daily activities and quality of life. - Previously treated with duloxetine, which she is considering resuming. Osteoarthritis: - Diagnosed by a surgeon with osteoarthritis. - The patient reports chronic pain which interferes with daily functioning. Sleep Disturbances: - The patient reports experiencing sleep disturbances for the past week, stating she has not been sleeping well and is very tired. Anxiety: - The patient experiences significant anxiety, likely exacerbating her insomnia and overall discomfort. - Previously treated with Valium, by Psych, she stopped follow up due to conflict Medication Issues: - Reports the medication Lyrica for head pain is ineffective. - Has been advised to avoid Tylenol due to allergies. - Desires a medication that provides relaxation and pain relief without the risk of dependency. Problem List - Fibromyalgia - Osteoarthritis - Sleep disturbances - Anxiety Patient Instructions - Begin duloxetine at 20 mg as directed. - Take tramadol 50 mg, only half a tablet at night, and the other half if needed in the morning. - Return for follow-up in three weeks as discussed. Medications: New tramadol 50 mg PO BEDTIME 30 tabs 0RF Refilled duloxetine 20 mg PO DAILY 90 caps 1RF 90 days Discontinued pregabalin (Lyrica) Discontinued Reason: Doctor's Order 25 mg PO BEDTIME 30 caps 0RF
== END 2025-05-31 09:31 | disposition home or self-care (01) ==
LOC: HO.HMCC 08:26
PROVIDERS: PCP Internal Medicine; Visit Provider Internal Medicine
DX: F33.1 Major depressive disorder, recurrent, moderate (principal); F41.1 Generalized anxiety disorder; M79.18 Myalgia, other site; M79.7 Fibromyalgia

== ENCOUNTER 2025-07-12 08:43 | Outpatient (AMB) | payer OTHER, SELFPAY ==
--- NOTE | 2025-07-12 08:43 | MHC.PC.OV ---
Intake Visit Reasons: 3 week f/up - new med Allergies acetaminophen (From Tylenol) Allergy (Severe, Verified 04/24/25 14:07) Shortness of Breath ibuprofen Allergy (Severe, Verified 04/24/25 14:07) shortness of breath canned food Allergy (Intermediate, Uncoded 02/26/25 14:13) Shortness of Breath Medication List - Last Reconciled 07/12/25 by Federico Yates MD [bed bars As directed NS] [adult diapers medium Use for incontinence episodes at night.] [adult pull-ups As directed NS] albuterol sulfate 2.5 mg (3 mL) inhalation Q4-6H PRN 30 days alcohol swabs (Alcohol Prep Pads) 1 pad topical DAILY alendronate (Fosamax) 70 mg PO QWEEK 90 days alum-mag hydroxide-simeth 200-200-20 mg/5 mL (Maalox Advanced) 10 mL PO ONCE PRN 30 days [bed table As directed] benzonatate 150 mg PO BID 15 days [Blood pressure monitor As directed] blood sugar diagnostic (FreeStyle Lite Strips) Check blood sugar once daily. blood-glucose meter (FreeStyle Lite Meter kit) Check blood sugar once daily capsaicin 0.025% 1 appl topical BID 30 days capsaicin 0.075% 1 appl topical BID cetirizine 10 mg PO DAILY PRN cyclobenzaprine 5 mg PO TID PRN disposable gloves Size medium [disposable pads-up to 3/day As directed] doxepin 10 mg PO BEDTIME duloxetine 20 mg PO DAILY 90 days ipratropium-albuterol 0.5 mg-3 mg(2.5 mg base)/3 mL 3 mL inhalation Q6H PRN 3 weeks lancets (FreeStyle Lancets) Check blood sugar once daily. lisinopril 5 mg PO DAILY 90 days memantine 10 mg PO QAM [mobility scooter As directed NS] montelukast 10 mg PO DAILY nebulizer and compressor (Comp-Air Nebulizer Compressor) As directed [non-slip shower mat As directed NS] ondansetron HCl 4 mg PO Q8H PRN 30 days pantoprazole 40 mg PO DAILY@0630 [raised toilet seat As directed NS] [Rollator walker with seat Use As directed] [showering chairs As directed] simvastatin 20 mg PO BEDTIME tramadol 50 mg PO BEDTIME walker As directed walker Use As directed NS Tobacco use date assessed: 01/12/25 Dental Screening Dental Screen Date: 01/12/25 HPI 3 week f/up - new med HPI Details History of Present Illness The patient is a 69-year-old female presenting with pain and medication side effects. Fibromyalgia: - Reports severe and constant pain associated with fibromyalgia. - Currently taking cyclobenzaprine 5 mg twice a day, which she reports as very effective for muscle relaxation. Medication Side Effects: - Reports experiencing body pain and severe pain associated with medication prescribed by her psychiatrist. - she will talk to him Depression: - Diagnosed with depression by her psychiatrist. - Currently has an appointment scheduled to discuss psychiatric medication adjustment due to severe side effects. Patient Instructions - Continue to take cyclobenzaprine as currently prescribed. - Communicate with the psychiatrist about medication side effects and the need for medication evaluation and possible changes. - Monitor for and report any severe or worsening pain or side effects. - Tramadol up to twice a day PRN Review of Systems - General: No fever no chills - Neurological: No headaches no dizziness - Ear nose throat: No sore throat no hearing difficulty no ear pain - Cardiovascular: No syncope, no chest pain, no palpitations - Gastrointestinal: No nausea vomiting or diarrhea PFSH Medical History Cognitive disorder Hand numbness GERD (gastroesophageal reflux disease) Cold intolerance Rheumatoid arthritis Lumbar spinal stenosis RAÚL (obstructive sleep apnea) Trigger finger Sleep disorder breathing Latent tuberculosis Cough Asthma Chronic pain syndrome Myofascial muscle pain Osteoarthritis Fibromyalgia HTN (hypertension) Anxiety Surgical History Hx of ovarian cystectomy Hx of cervical discectomy History of lumbar surgery Family History Father Diabetes Mother Acute arthritis Other Mental health disorder Social History Household Members: None Housing: Apartment Are you a primary hearing healthcare practitioner to a significant other at home: No Do you presently have 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 Bj Ingram, Yolanda Glass, Dexter Ferguson and colleagues, with an educational jesus from [employer]. Physical exam (Primary Care) Tobacco/Smoking Status: Tobacco use Status Tobacco use date assessed 01/12/25 07/12/25 08:43 Patient Tobacco Use Status Never used Tobacco 07/12/25 08:43 e-Cigarette/Vaping Use Never Used 07/12/25 08:43 Thrive Assessment: Date of Thrive Assessment Date Thrive assessed 04/24/25 07/12/25 08:43 Telehealth Telehealth Telehealth Platform: [employer] Location of provider rendering services: practice address Location of patient: address on file Patient Identification confirmed using: Name, : Yes Telehealth method: video Patient verbally consented to treatment: Yes Patient verbally consented to billing insurance company: Yes Patient informed of any privacy concerns related to visit: Yes Minutes spent on Phone/Video with Pt.: 13 Coding Level of Care Code Tele Est Pt Level 3 (27115) Diagnoses Fibromyalgia M79.7 Assessment & Plan Assessment & Plan (1) Fibromyalgia: Code(s): M79.7 - Fibromyalgia Category: Medical Plan History of Present Illness The patient is a 69-year-old female presenting with pain and medication side effects. Fibromyalgia: - Reports severe and constant pain associated with fibromyalgia. - Currently taking cyclobenzaprine 5 mg twice a day, which she reports as very effective for muscle relaxation. Medication Side Effects: - Reports experiencing body pain and severe pain associated with medication prescribed by her psychiatrist. - she will talk to him Depression: - Diagnosed with depression by her psychiatrist. - Currently has an appointment scheduled to discuss psychiatric medication adjustment due to severe side effects. Patient Instructions - Continue to take cyclobenzaprine as currently prescribed. - Communicate with the psychiatrist about medication side effects and the need for medication evaluation and possible changes. - Monitor for and report any severe or worsening pain or side effects. - Tramadol up to twice a day PRN Medications: Refilled tramadol 50 mg PO BEDTIME 30 tabs 0RF
--- OUTSIDE RECORDS SUMMARY | 2025-07-12 09:16 | XMS_ITS | Encounter Summary ---
Author Organization [facility] Address [address] [place] [address] Encounters * CPT with [facility] at [facility] on 2025-05-26 { reasonForRequest : Patient has a Cough. , patientReports : Increased work of breathing/labored ??? with or without fever; Unable to speak in full sentences without distress; Needs to sleep sitting up, can???t catch breath; History of asthma, increased use of inhaler; Sputum increase ; Cough; Shortness of breath with exertion; Pain with inspiration , denies :[ Discoloration of skin - cyanosis , Shortness of breath in setting of confusion , Cough, fever greater than 2 days , Lower extremity swelling ,"COPD ], chiefComplaints : Common Cold, Breathing Problems , pmh": Hypertension, Rheumatoid Arthritis, Asthma, Fibromyalgia , allergies : Acetaminophen, Ibuprofen , otherAllergies :null, painAssessment : &quo t;, visitOutcome : , additionalComments : 69 y.o female complains of Common Cold and difficulty breathing - x1 1 day\n\nPt reports feeling unwell with cold symptoms/asthma - Breathing is labored - Speaking Short sentences - Wheezing - Coughing is tight\n\nDenies fever\n\nUsing nebulizer with no relief \n\nConcerns expressed and the pt declined emergency treatment\n\nWellness check requested \n\nI provided information on the mobile health provider response time and advised the patient and/or caregiver to monitor reported signs and symptoms. I discussed the warning signs of when to seek emergency care. } This 69-year-old female with a history including but not limited to HTN, RA, asthma, fibromyalgia requested a visit today to address two days of dyspnea on exertion and cough producing yellow sputum.Patient uses duo nebs QID. Last nebulizer treatment was around 4 AM this morning. Patient denies any chest pain, headaches, dizziness, fevers, nausea, vomiting, diarrhea. Patient tolerating PO fluidsand food normally. Allergy to acetaminophen. Patient presents awake and alert, in no acute distress and speaking full sentences. Her vital signsare reasonably stable and she is afebrile. Nonfocal neurological exam. Normal gait. Normal oropharynx exam. Diffuse expiratory wheezing. Abdomen is soft, nontender, nondistended. No lower extremity edema. Rapid COVID and flu testing are both negative. I treated with methylprednisolone 125 mg IVP and azithromycin 500 mg. I also treated with a duo nebwhich resolved the wheezing. We discussed the diagnostic uncertainty of home visits and the risk associated with this. In this case, the patient and I felt this to be an acceptable and reasonable amount of risk given the benefitof avoiding an ED visit. I provided education on the patient's prescriptions as well as additional OTC/supportive care therapy. I recommend she continue her nebulizers QID and follow-up with her PCP next week. I instructed her to present to the emergency department for any new or worsening severe symptoms such as chest pain, severe shortness of breath, high fever, altered mental status. The patient was given the opportunity to ask questions and is agreeable to this plan. IV_(FLUIDS_AND/OR_MEDICATION), MEDICATION_IM, ORAL_MEDICATION, POC_BLOODWORK, POC_FLU_STREP, COVID_TEST Written by Radha Carreno on 2025-05-26
--- OUTSIDE RECORDS SUMMARY | 2025-07-12 09:16 | XMS_ITS | Continuity of Care Document ---
Author Name [facility] Address [address] [place] [address] Organization Unknown Address [address] [place] [address] Medications No known medications Problems No known problems
--- OUTSIDE RECORDS SUMMARY | 2025-07-12 09:16 | XMS_ITS | Continuity of Care Document ---
Author Name [facility] Address [address] [place] [address] Organization Unknown Address [address] [place] [address] Medications No known medications Problems No known problems
== END 2025-07-12 09:26 | disposition home or self-care (01) ==
LOC: HO.HMCC 08:43
PROVIDERS: PCP Internal Medicine; Visit Provider Internal Medicine
DX: M79.7 Fibromyalgia (principal)

== ENCOUNTER 2025-07-24 13:51 | Outpatient (AMB) | payer OTHER, SELFPAY ==
--- NOTE | 2025-07-24 13:58 | A.OFFPC_ITS ---
Vital Signs 07/24/25 13:59 BMI Reason not done Patient refused/unable BP 130/80 Blood Pressure Location Lt radial Position Sitting Pulse 86 Pulse Source Pulse Oximeter Pulse Oximetry (%) 98 Intake Visit Reasons: 3m follow up Allergies acetaminophen (From Tylenol) Allergy (Severe, Verified 07/24/25 14:00) Shortness of Breath ibuprofen Allergy (Severe, Verified 07/24/25 14:00) shortness of breath canned food Allergy (Intermediate, Uncoded 02/26/25 14:13) Shortness of Breath Medication List - Last Reconciled 07/24/25 by Federico Yates MD [bed bars As directed NS] [adult diapers medium Use for incontinence episodes at night.] [adult pull-ups As directed NS] albuterol sulfate 2.5 mg (3 mL) inhalation Q4-6H PRN 30 days alcohol swabs (Alcohol Prep Pads) 1 pad topical DAILY alendronate (Fosamax) 70 mg PO QWEEK 90 days alum-mag hydroxide-simeth 200-200-20 mg/5 mL (Maalox Advanced) 10 mL PO ONCE PRN 30 days [bed table As directed] benzonatate 150 mg PO BID 15 days [Blood pressure monitor As directed] blood sugar diagnostic (FreeStyle Lite Strips) Check blood sugar once daily. blood-glucose meter (FreeStyle Lite Meter kit) Check blood sugar once daily capsaicin 0.025% 1 appl topical BID 30 days capsaicin 0.075% 1 appl topical BID cetirizine 10 mg PO DAILY PRN codeine-guaifenesin 10-200 mg/5 mL 10 mL PO Q4-6H PRN 60 days cyclobenzaprine 5 mg PO TID PRN disposable gloves Size medium [disposable pads-up to 3/day As directed] doxepin 10 mg PO BEDTIME duloxetine 20 mg PO DAILY 90 days ipratropium-albuterol 0.5 mg-3 mg(2.5 mg base)/3 mL 3 mL inhalation Q6H PRN 3 weeks lancets (FreeStyle Lancets) Check blood sugar once daily. lisinopril 5 mg PO DAILY 90 days memantine 10 mg PO QAM [mobility scooter As directed NS] montelukast 10 mg PO DAILY nebulizer and compressor (Comp-Air Nebulizer Compressor) As directed [non-slip shower mat As directed NS] ondansetron HCl 4 mg PO Q8H PRN 30 days pantoprazole 40 mg PO DAILY@0630 [raised toilet seat As directed NS] [Rollator walker with seat Use As directed] [showering chairs As directed] simvastatin 20 mg PO BEDTIME tramadol 50 mg PO BEDTIME walker As directed walker Use As directed NS Tobacco use date assessed: 01/12/25 Fall risk assessment: No Falls in past year Last assessed Fall Risk: 07/24/25 Dental Screening Dental Screen Date: 01/12/25 HPI 3m follow up HPI Details History of Present Illness The patient is a 69 year old female presenting with management of chronic health conditions. Chronic Cough: - Present mostly at night over the last week. - Patient reports taking benzonatate (ye llow capsule) at a dose of 200 mg as needed. - Improvement in symptoms anticipated wi th medication use. Fibromyalgia: - Patient utilizes a muscle relaxer for management. - Reports significant symptom relief wit h 5 mg taken twice daily. Osteoporosis: - Currently managed with alendronate (Fo samax) once weekly. - No new fractures reported. Chronic Gastroesophageal Reflux Disease (GERD): - Managed with pantoprazole, no reported side effects. Chronic Pain: - Takes tramadol nightly for pain relief . - Advised on controlled prescribing my cote, requiring follow-up every three months. Diabetes Mellitus: - sugar is stable Sleep Difficulty: - Occasional trouble with sleep attribut ed to pain; managed with tramadol at night. Medical History: - Fibromyalgia - Multiple joint osteoarthritis - Osteoporosis - Chronic gastroesophageal reflux diseas e (GERD) - Diabetes Mellitus - Obesity - Chronic dizziness Medications: - Benzonatate 200 mg as needed for cough - Muscle relaxer, 5 mg twice daily for f ibromyalgia - Alendronate (Fosamax) once weekly for osteoporosis - Pantoprazole, dosage unspecified for c hronic GERD - Tramadol, dosage unspecified, nightly for pain Problem List - Chronic Cough off and on - Fibromyalgia - Osteoporosis - Chronic Gastroesophageal Reflux Diseas e (GERD) - Chronic Pain requiring pain management - Obesity - Diabetes Mellitus - Sleep Difficulty Plan - refill for benzonatate sent however it is recommended that if patient is having cough she should be evaluated - Ongoing use of the muscle relaxer for fibromyalgia management with good symptom control. - Continue alendronate for osteoporosis management. - Pantoprazole to be continued for GERD, as no adverse effects noted. - Tramadol to be refilled for three wang hs, requires in-person visit for further refills due to controlled substance classification, with follow-up every three months. - Encourage regular follow-up to monitor chronic conditions, particularly diabetes and osteoporosis. - Patient to receive a high-dose flu vac cine appropriate for seniors, advised to obtain from pharmacy. Follow-up 3 months Review of Systems - General: No fever no chills - Neurological: No headaches - Ear nose throat: No sore throat no hearing difficulty no ear pain - Cardiovascular: No syncope, no chest pain, no palpitations - Gastrointestinal: No nausea vomiting or diarrhea Physical Exam - General: No acute distress - HEENT: No acute findings - Neck: Supple - Respiratory system: Able to talk in f ull sentences, no audible wheeze - Cardiovascular: S1-S2 regular in rate and rhythm - Gastrointestinal: No pain - Extremities: No new findings - AGRICULTURAL RESEARCHER: Alert awake oriented x3 motor in tact - Skin: Normal turgor PFSH Medical History Cognitive disorder Hand numbness GERD (gastroesophageal reflux disease) Cold intolerance Rheumatoid arthritis Lumbar spinal stenosis RAÚL (obstructive sleep apnea) Trigger finger Sleep disorder breathing Latent tuberculosis Cough Asthma Chronic pain syndrome Myofascial muscle pain Osteoarthritis Fibromyalgia HTN (hypertension) Anxiety Surgical History Hx of ovarian cystectomy Hx of cervical discectomy History of lumbar surgery Family History Father Diabetes Mother Acute arthritis Other Mental health disorder Social History Household Members: None Housing: Apartment Are you a primary career services director to a significant other at home: No Do you presently have visiting nurse or other home services: Yes (HOME HEALTH LPN.) Alcohol intake: never Comment: COUNTS CORRECT Patient Tobacco Use Status: Never used Tobacco e-Cigarette/Vaping Use: Never Used Advance Directives Date on File: 02/26/22 service: No Current occupational status: unemployed Cognitive needs: No Hearing needs: No Vision needs: No Questionnaire Thrive Questionnaire Date Thrive assessed: 04/24/25 MATTHEW-7 AMB Questionnaire MATTHEW-7 Date MATTHEW - 7 assessed: 04/24/25 Source: Developed by Drs. Bj Ingram, Yolanda Glass, Dexter Ferguson and colleagues, with an educational jesus from [employer]. Physical exam (Primary Care) Vital Signs: Last Vital Signs Pulse 86 07/24/25 13:59 BP 130/80 07/24/25 13:59 Pulse Ox 98 07/24/25 13:59 Tobacco/Smoking Status: Tobacco use Status Tobacco use date assessed 01/12/25 07/24/25 13:59 Patient Tobacco Use Status Never used Tobacco 07/24/25 13:59 e-Cigarette/Vaping Use Never Used 07/24/25 13:59 Thrive Assessment: Date of Thrive Assessment Date Thrive assessed 04/24/25 07/24/25 13:59 Coding Level of Care Code Est Pt Level 5 (33392) Diagnoses Diet-controlled diabetes mellitus E11.9 Hypertension, essential I10 Myofascial muscle pain M79.18 Fibromyalgia M79.7 Moderate episode of recurrent major depressive disorder F33.1 Active/Remission status: currently active Major depression episode severity: moderate Anxiety, generalized F41.1 Environmental allergies Z91.09 Age-related osteoporosis without current pathological fracture M81.0 Presence of current pathological fracture: without current pathological fracture Class 1 obesity due to excess calories with serious comorbidity and body mass index (BMI) of 33.0 to 33.9 in adult E66.09; Z68.33 Body mass index: BMI 33.0-33.9 Obesity classification: adult class 1 (BMI 30 - 34.9) Serious obesity comorbidity presence: with serious comorbidity Benign paroxysmal positional vertigo due to bilateral vestibular disorder H81.13 Laterality: bilateral Chronic GERD K21.9 Rheumatoid arthritis involving multiple sites, unspecified whether rheumatoid factor present M06.9 Rheumatoid arthritis location: multiple sites Rheumatoid factor presence: unspecified presence Primary osteoarthritis of both knees M17.0 Osteoarthritis type: primary Muscle spasm M62.838 Impaired mobility Z74.09 Time Spent (min) 40 Comment Multiple medical problems/chart review/tipm-rk-fhms/coordination of care Assessment & Plan Assessment & Plan (1) Diet-controlled diabetes mellitus: Code(s): E11.9 - Type 2 diabetes mellitus without complications Category: Medical (2) Hypertension, essential: Code(s): I10 - Essential (primary) hypertension Category: Medical (3) Myofascial muscle pain: Code(s): M79.18 - Myalgia, other site Category: Medical (4) Fibromyalgia: Code(s): M79.7 - Fibromyalgia Category: Medical (5) Major depression, recurrent: Code(s): F33.9 - Major depressive disorder, recurrent, unspecified Category: Medical Qualifiers: Active/Remission status: currently active Major depression episode severity: moderate Qualified Code(s): F33.1 - Major depressive disorder, recurrent, moderate (6) Anxiety, generalized: Code(s): F41.1 - Generalized anxiety disorder Category: Medical (7) Environmental allergies: Code(s): Z91.09 - Other allergy status, other than to drugs and biological substances Category: Medical (8) Age related osteoporosis: Code(s): M81.0 - Age-related osteoporosis without current pathological fracture Category: Medical Qualifiers: Presence of current pathological fracture: without current pathological fracture Qualified Code(s): M81.0 - Age-related osteoporosis without current pathological fracture (9) Obesity due to excess calories: Comment: ,She is moderately obese and this may be contributing to her symptoms of sleep apnea at night. Code(s): E66.09 - Other obesity due to excess calories Category: Medical Qualifiers: Body mass index: BMI 33.0-33.9 Obesity classification: adult class 1 (BMI 30 - 34.9) Serious obesity comorbidity presence: with serious comorbidity Qualified Code(s): E66.09 - Other obesity due to excess calories; Z68.33 - Body mass index [BMI] 33.0-33.9, adult (10) Benign paroxysmal positional vertigo: Code(s): H81.10 - Benign paroxysmal vertigo, unspecified ear Category: Medical Qualifiers: Laterality: bilateral Qualified Code(s): H81.13 - Benign paroxysmal vertigo, bilateral (11) Chronic GERD: Code(s): K21.9 - Gastro-esophageal reflux disease without esophagitis Category: Medical (12) Rheumatoid arthritis: Code(s): M06.9 - Rheumatoid arthritis, unspecified Category: Medical Qualifiers: Rheumatoid arthritis location: multiple sites Rheumatoid factor presenc e: unspecified presence Qualified Code(s): M06.9 - Rheumatoid arthritis, unspecified (13) Osteoarthritis of knees, bilateral: Code(s): M17.0 - Bilateral primary osteoarthritis of knee Category: Medical Qualifiers: Osteoarthritis type: primary Qualified Code(s): M17.0 - Bilateral primary osteoarthritis of knee (14) Muscle spasm: Code(s): M62.838 - Other muscle spasm Category: Medical (15) Impaired mobility: Code(s): Z74.09 - Other reduced mobility Category: Medical Plan History of Present Illness The patient is a 69 year old female presenting with management of chronic health conditions. Chronic Cough: - Present mostly at night over the last week. - Patient reports taking benzonatate (yellow capsule) at a dose of 200 mg as needed. - Improvement in symptoms anticipated with medication use. Fibromyalgia: - Patient utilizes a muscle relaxer for management. - Reports significant symptom relief with 5 mg taken twice daily. Osteoporosis: - Currently managed with alendronate (Fosamax) once weekly. - No new fractures reported. Chronic Gastroesophageal Reflux Disease (GERD): - Managed with pantoprazole, no reported side effects. Chronic Pain: - Takes tramadol nightly for pain relief. - Advised on controlled prescribing regime, requiring follow-up every three months. Diabetes Mellitus: - sugar is stable Sleep Difficulty: - Occasional trouble with sleep attributed to pain; managed with tramadol at night. Medical History: - Fibromyalgia - Multiple joint osteoarthritis - Osteoporosis - Chronic gastroesophageal reflux disease (GERD) - Diabetes Mellitus - Obesity - Chronic dizziness Medications: - Benzonatate 200 mg as needed for cough - Muscle relaxer, 5 mg twice daily for fibromyalgia - Alendronate (Fosamax) once weekly for osteoporosis - Pantoprazole, dosage unspecified for chronic GERD - Tramadol, dosage unspecified, nightly for pain Problem List - Chronic Cough off and on - Fibromyalgia - Osteoporosis - Chronic Gastroesophageal Reflux Disease (GERD) - Chronic Pain requiring pain management - Obesity - Diabetes Mellitus - Sleep Difficulty Plan - refill for benzonatate sent however it is recommended that if patient is having cough she should be evaluated - Ongoing use of the muscle relaxer for fibromyalgia management with good symptom control. - Continue alendronate for osteoporosis management. - Pantoprazole to be continued for GERD, as no adverse effects noted. - Tramadol to be refilled for three months, requires in-person visit for further refills due to controlled substance classification, with follow-up every three months. - Encourage regular follow-up to monitor chronic conditions, particularly diabetes and osteoporosis. - Patient to receive a high-dose flu vaccine appropriate for seniors, advised to obtain from pharmacy. Follow-up 3 months Medications: Changed From cyclobenzaprine 5 mg PO TID PRN 90 tabs 0RF muscle spasm To cyclobenzaprine 5 mg PO BID PRN 60 tabs 2RF muscle spasm Refilled benzonatate 150 mg PO BID 30 caps 1RF SEVERE COUGH 15 days tramadol 50 mg PO BEDTIME 30 tabs 2RF
[2025-07-24 13:59] VITALS: BP 130/80; PULSE 86; O2SAT 98
== END 2025-07-24 15:20 | disposition home or self-care (01) ==
LOC: HO.HMCC 13:51
PROVIDERS: PCP Internal Medicine; Visit Provider Internal Medicine
DX: E11.9 Type 2 diabetes mellitus without complications (principal); I10 Essential (primary) hypertension; M79.18 Myalgia, other site; M79.7 Fibromyalgia; F33.1 Major depressive disorder, recurrent, moderate; F41.1 Generalized anxiety disorder; Z91.09 Other allergy status, other than to drugs and biological substances; M81.0 Age-related osteoporosis without current pathological fracture; E66.09 Other obesity due to excess calories; Z68.33 Body mass index [BMI] 33.0-33.9, adult; H81.13 Benign paroxysmal vertigo, bilateral; M06.9 Rheumatoid arthritis, unspecified; K21.9 Gastro-esophageal reflux disease without esophagitis; M17.0 Bilateral primary osteoarthritis of knee; M62.838 Other muscle spasm; Z74.09 Other reduced mobility

== ENCOUNTER → 2025-07-24 13:51 | Outpatient (BNVA) | payer OTHER, SELFPAY | PROVIDERS: PCP Internal Medicine; Visit Provider Internal Medicine | DX: R05.3 Chronic cough (principal); M79.7 Fibromyalgia; M81.0 Age-related osteoporosis without current pathological fracture; K21.9 Gastro-esophageal reflux disease without esophagitis; E11.9 Type 2 diabetes mellitus without complications; I10 Essential (primary) hypertension; F33.1 Major depressive disorder, recurrent, moderate; F41.1 Generalized anxiety disorder; E66.09 Other obesity due to excess calories; E66.811 Obesity, class 1; H81.13 Benign paroxysmal vertigo, bilateral; M06.9 Rheumatoid arthritis, unspecified; M17.0 Bilateral primary osteoarthritis of knee; M62.838 Other muscle spasm; Z74.09 Other reduced mobility; Z68.33 Body mass index [BMI] 33.0-33.9, adult; Z91.09 Other allergy status, other than to drugs and biological substances | CPT/HCPCS: 99212 ==

== ENCOUNTER 2025-09-27 08:24 | Outpatient (AMB) | payer OTHER, SELFPAY ==
--- NOTE | 2025-09-27 08:40 | MHC.PC.OV ---
Intake Visit Reasons: knee pain Allergies acetaminophen (From Tylenol) Allergy (Severe, Verified 07/24/25 14:00) Shortness of Breath ibuprofen Allergy (Severe, Verified 07/24/25 14:00) shortness of breath canned food Allergy (Intermediate, Uncoded 02/26/25 14:13) Shortness of Breath Medication List - Last Reconciled 09/27/25 by Federico Yates MD [bed bars As directed NS] [adult diapers medium Use for incontinence episodes at night.] [adult pull-ups As directed NS] albuterol sulfate 2.5 mg (3 mL) inhalation Q4-6H PRN 30 days alcohol swabs (Alcohol Prep Pads) 1 pad topical DAILY alendronate (Fosamax) 70 mg PO QWEEK 90 days alum-mag hydroxide-simeth 200-200-20 mg/5 mL (Maalox Advanced) 10 mL PO ONCE PRN 30 days [bed table As directed] benzonatate 100 mg PO BID 15 days [Blood pressure monitor As directed] blood sugar diagnostic (FreeStyle Lite Strips) Check blood sugar once daily. blood-glucose meter (FreeStyle Lite Meter kit) Check blood sugar once daily capsaicin 0.025% 1 appl topical BID 30 days capsaicin 0.075% 1 appl topical BID cetirizine 10 mg PO DAILY PRN codeine-guaifenesin 10-200 mg/5 mL 10 mL PO Q4-6H PRN 60 days cyclobenzaprine 5 mg PO BID PRN disposable gloves Size medium [disposable pads-up to 3/day As directed] doxepin 10 mg PO BEDTIME duloxetine 20 mg PO DAILY 90 days ipratropium-albuterol 0.5 mg-3 mg(2.5 mg base)/3 mL 3 mL inhalation Q6H PRN 3 weeks lancets (FreeStyle Lancets) Check blood sugar once daily. lisinopril 5 mg PO DAILY 90 days memantine 10 mg PO QAM [mobility scooter As directed NS] montelukast 10 mg PO DAILY nebulizer and compressor (Comp-Air Nebulizer Compressor) As directed [non-slip shower mat As directed NS] ondansetron HCl 4 mg PO Q8H PRN 30 days pantoprazole 40 mg PO DAILY@0630 [raised toilet seat As directed NS] [Rollator walker with seat Use As directed] [showering chairs As directed] simvastatin 20 mg PO BEDTIME tramadol 50 mg PO BEDTIME walker As directed walker Use As directed NS Tobacco use date assessed: 01/12/25 Dental Screening Dental Screen Date: 01/12/25 HPI HPI Comments History of Present Illness Details History of Present Illness The patient is a 70 year old female presenting with concerns of generalized body swelling and elevated blood pressure. Hypertension: - The patient's blood pressure was very high yesterday, with a reading of 175/97 mmHg. - She has a prescription for lisinopril for her blood pressure but admits to forgetting to take it, having taken it only two or three times. - She reports that her blood pressure is controlled when she takes her medication as prescribed. - She does not have a working blood pressure monitor at home to check her current reading. Generalized edema: - The patient reports that her body is swollen, affecting her from her lower extremities up to her thigh and knee. Knee pain: - The patient reports she received an injection in her right knee. - She has an upcoming appointment with a rail car painter/sandblaster tomorrow. Medical History: - Hypertension, managed with lisinopril - Allergies, managed with cetirizine - fibromyalgia , muscle relaxer helps - swelling generalize Medications: - Lisinopril for high blood pressure; patient reports non-adherence - Tizanidine for muscle relaxation, which she finds effective - Cetirizine for allergies PFSH Medical History Cognitive disorder Hand numbness GERD (gastroesophageal reflux disease) Cold intolerance Rheumatoid arthritis Lumbar spinal stenosis RAÚL (obstructive sleep apnea) Trigger finger Sleep disorder breathing Latent tuberculosis Cough Asthma Chronic pain syndrome Myofascial muscle pain Osteoarthritis Fibromyalgia HTN (hypertension) Anxiety Surgical History Hx of ovarian cystectomy Hx of cervical discectomy History of lumbar surgery Family History Father Diabetes Mother Acute arthritis Other Mental health disorder Social History Household Members: None Housing: Apartment Are you a primary career developer to a significant other at home: No Do you presently have visiting nurse or other home services: Yes ([employer].) Alcohol intake: never Comment: COUNTS CORRECT Patient Tobacco Use Status: Never used Tobacco e-Cigarette/Vaping Use: Never Used Advance Directives Date on File: 02/26/22 service: No Current occupational status: unemployed Cognitive needs: No Hearing needs: No Vision needs: No Questionnaire Thrive Questionnaire Date Thrive assessed: 04/24/25 MATTHEW-7 AMB Questionnaire MATTHEW-7 Date MATTHEW - 7 assessed: 04/24/25 Source: Developed by Drs. Bj Ingram, Yolanda Glass, Dexter Ferguson and colleagues, with an educational jesus from [employer]. Review of Systems Narrative Review of Systems - General: No fever no chills - Neurological: No headaches no dizziness - Ear nose throat: No sore throat no hearing difficulty no ear pain - Cardiovascular: No syncope, no chest pain, no palpitations - Gastrointestinal: No nausea vomiting or diarrhea - Endocrine: No polyuria polydipsia no heat intolerance - Genitourinary: No dysuria , no blood in urine Physical exam (Primary Care) Tobacco/Smoking Status: Tobacco use Status Tobacco use date assessed 01/12/25 09/27/25 08:40 Patient Tobacco Use Status Never used Tobacco 09/27/25 08:40 e-Cigarette/Vaping Use Never Used 09/27/25 08:40 Thrive Assessment: Date of Thrive Assessment Date Thrive assessed 04/24/25 09/27/25 08:40 Narrative Telehealth Telehealth Telehealth Platform: [facility] Location of provider rendering services: practice address Location of patient: address on file Patient Identification confirmed using: Name, : Yes Telehealth method: video Patient verbally consented to treatment: Yes Patient verbally consented to billing insurance company: Yes Patient informed of any privacy concerns related to visit: Yes Minutes spent on Phone/Video with Pt.: 13 Coding Level of Care Code Tele Est Pt Level 3 (91026) Diagnoses Hypertension, essential I10 Bilateral swelling of feet M79.89 Primary osteoarthritis of both knees M17.0 Osteoarthritis type: primary Fibromyalgia M79.7 Muscle spasm M62.838 Assessment & Plan Assessment & Plan (1) Hypertension, essential: Code(s): I10 - Essential (primary) hypertension Category: Medical (2) Bilateral swelling of feet: Code(s): M79.89 - Other specified soft tissue disorders Category: Medical (3) Osteoarthritis of knees, bilateral: Code(s): M17.0 - Bilateral primary osteoarthritis of knee Category: Medical Qualifiers: Osteoarthritis type: primary Qualified Code(s): M17.0 - Bilateral primary osteoarthritis of knee (4) Fibromyalgia: Code(s): M79.7 - Fibromyalgia Category: Medical (5) Muscle spasm: Code(s): M62.838 - Other muscle spasm Category: Medical Plan Problem List - Hypertension - Generalized edema - Knee pain - muscle spasms Plan - The patient was counseled on the importance of taking her lisinopril daily and at a consistent time to manage her hypertension, regardless of meals. - A prescription for a few tablets of Lasix 20 mg will be sent to address the body swelling. The patient was advised she could break the tablet in half and take it in the morning for a 3 days - The patient's prescription for montelukast will be canceled as per her request, as she reports it is not useful. - The patient was seen via video call to visually assess her condition. - The patient will continue with her scheduled appointment with pain management tomorrow for her knee pain. - A follow-up appointment is scheduled in the clinic on November 01. Medications: New furosemide (Lasix) 20 mg PO DAILY 5 tabs 0RF 5 days Discontinued montelukast Discontinued Reason: Doctor's Order 10 mg PO DAILY 90 tabs 0RF
== END 2025-09-27 11:24 | disposition home or self-care (01) ==
LOC: HO.HMCC 08:24
PROVIDERS: PCP Internal Medicine; Visit Provider Internal Medicine
DX: I10 Essential (primary) hypertension (principal); M79.89 Other specified soft tissue disorders; M17.0 Bilateral primary osteoarthritis of knee; M79.7 Fibromyalgia; M62.838 Other muscle spasm

== ENCOUNTER 2025-09-28 09:49 | Outpatient (AMB) | payer OTHER, SELFPAY ==
--- NOTE | 2025-09-28 09:56 | MHC.OFFVIS ---
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: No Allergies acetaminophen (From Tylenol) Allergy (Severe, Verified 09/28/25 10:00) Shortness of Breath ibuprofen Allergy (Severe, Verified 09/28/25 10:00) shortness of breath canned food Allergy (Intermediate, Uncoded 09/28/25 10:00) Shortness of Breath Medication List - Last Reconciled 09/28/25 by Janee Castillo LPN [bed bars As directed NS] [adult diapers medium Use for incontinence episodes at night.] [adult pull-ups As directed NS] albuterol sulfate 2.5 mg (3 mL) inhalation Q4-6H PRN 30 days alcohol swabs (Alcohol Prep Pads) 1 pad topical DAILY alendronate (Fosamax) 70 mg PO QWEEK 90 days alum-mag hydroxide-simeth 200-200-20 mg/5 mL (Maalox Advanced) 10 mL PO ONCE PRN 30 days [bed table As directed] benzonatate 100 mg PO BID 15 days [Blood pressure monitor As directed] blood sugar diagnostic (FreeStyle Lite Strips) Check blood sugar once daily. blood-glucose meter (FreeStyle Lite Meter kit) Check blood sugar once daily capsaicin 0.025% 1 appl topical BID 30 days capsaicin 0.075% 1 appl topical BID cetirizine 10 mg PO DAILY PRN cyclobenzaprine 5 mg PO BID PRN disposable gloves Size medium [disposable pads-up to 3/day As directed] doxepin 10 mg PO BEDTIME duloxetine 20 mg PO DAILY 90 days furosemide (Lasix) 20 mg PO DAILY 5 days ipratropium-albuterol 0.5 mg-3 mg(2.5 mg base)/3 mL 3 mL inhalation Q6H PRN 3 weeks lancets (FreeStyle Lancets) Check blood sugar once daily. lisinopril 5 mg PO DAILY 90 days memantine 10 mg PO QAM [mobility scooter As directed NS] nebulizer and compressor (Comp-Air Nebulizer Compressor) As directed [non-slip shower mat As directed NS] ondansetron HCl 4 mg PO Q8H PRN 30 days pantoprazole 40 mg PO DAILY@0630 [raised toilet seat As directed NS] [Rollator walker with seat Use As directed] [showering chairs As directed] simvastatin 20 mg PO BEDTIME tramadol 50 mg PO BEDTIME walker As directed walker Use As directed NS HPI HPI RIGHT KNEE PAIN: Details: History of Present Illness The patient is a 70-year-old female who presented for a follow-up visit regarding knee pain and also requested trigger point injections for her upper back. Her surgical history is significant for an L3-4 discectomy with fusion, followed by a subsequent revision with reinsertion of pedicle screws. She has a diagnosis of lumbar spinal stenosis. The medical history is also notable for palpitations. The patient reported taking prednisone for pain in her bulging discs, which is exacerbated by cold weather, but she was advised against this due to potential dangers. Pain Description - Presents for follow-up of knee pain. - Reports bulging pain that is exacerbated by cold weather. - Requested trigger point injections for upper back pain. Physical Exam - Musculoskeletal: Examination of the upper back identified trigger points in the trapezius, rhomboids, and suboccipital muscles. Results - Imaging: An X-ray of the back was mentioned as a prerequisite for any future procedures. Pain Management - Analgesia: The patient reports using prednisone for pain related to bulging discs, which is exacerbated by cold weather. - Counseling: The patient was advised that taking prednisone is dangerous and that she should not use it for this purpose. [facility] Medical History Cognitive disorder Hand numbness GERD (gastroesophageal reflux disease) Cold intolerance Rheumatoid arthritis Lumbar spinal stenosis RAÚL (obstructive sleep apnea) Trigger finger Sleep disorder breathing Latent tuberculosis Cough Asthma Chronic pain syndrome Myofascial muscle pain Osteoarthritis Fibromyalgia HTN (hypertension) Anxiety Surgical History Hx of ovarian cystectomy Hx of cervical discectomy History of lumbar surgery Family History Father Diabetes Mother Acute arthritis Other Mental health disorder Social History Household Members: None Housing: Apartment Are you a primary floor care specialist to a significant other at home: No Do you presently have visiting nurse or other home services: Yes ([employer].) Alcohol intake: never Comment: COUNTS CORRECT Patient Tobacco Use Status: Never used Tobacco e-Cigarette/Vaping Use: Never Used Advance Directives Date on File: 02/26/22 service: No Current occupational status: unemployed Cognitive needs: No Hearing needs: No Vision needs: No Physical Exam Vital Signs: Last Vital Signs Pulse 93 09/28/25 09:59 Resp 16 09/28/25 09:59 BP 168/88 H 09/28/25 09:59 Pulse Ox 97 09/28/25 09:59 Oxygen Delivery Method Room Air 09/28/25 09:59 BMI result Body Mass Index 37.8 Office Procedures AMB Joint Injection/Aspiration Joint Injection/Aspiration Primary Site: Right Knee Prep: site was prepped using sterile technique Injected: 40 mg of, Kenalog, with 3 mL of (0.25% ropivacaine) and in the joint Approach Used: medial parapatellar Procedure: The patient tolerated the procedure well Coding 79283 - Large joint Procedure code (CPT) selection complete Injection Trigger Point Multi Trigger Point Injections Pre-procedure diagnosis: Myofascial pain Post-procedure diagnosis: Myofascial pain Site and number of trigger points: Occipitalis Trapezius Rhomboid Solution: Total volume administered 12 ml (ropivacaine 0.25%) The procedure, its benefits, and its risks were explained to the patient and all questions were answered. A ?time out? was performed to confirm correct patient, procedure, and laterality. Trigger points were identified by manual palpation. The skin was cleaned with Chloraprep. A 1.5 inch 25 G needle was used. Each of the trigger points were approximated and elevated in the direction away from the body. Approximately 0.5 ml to 1 ml of injectate was delivered to the trigger point followed by dry needling for 3-5 seconds. This process was repeated at each trigger point site. The patient tolerated the procedure well. Post-procedure, there was no change in respiratory status. The patient tolerated the procedure well, without complication. The patient denied any numbness, paresthesias, or weakness. Post-procedure vitals were recorded as part of the nursing discharge note in electronic medical record. Following a period of observation, the patient was discharged in stable condition with written discharge instructions. Trigger Point Multiple: - Trigger point injection =/>3 Assessment & Plan Assessment & Plan (1) Myofascial muscle pain: Code(s): M79.18 - Myalgia, other site Category: Medical (2) Knee pain, right: Code(s): M25.561 - Pain in right knee Category: Medical Plan Plan Patient was informed and verbally consented to the use of an ambient scribe for clinic note documentation during this visit. 1. Knee Pain - The patient presented for a follow-up of knee pain, though this was not the primary focus of today's visit. 2. Myofascial Pain Syndrome - The patient requested trigger point injections for upper back pain. - Examination revealed trigger points in the trapezius, rhomboids, and occipitalis muscles. - The plan is to proceed with trigger point injections. - Follow-up as needed. 3. Lumbar Spinal Stenosis - The patient has a history of lumbar spinal stenosis. - The patient's history includes an L3-L4 discectomy with fusion and a subsequent screw revision. - She was informed that an X-ray is required before any procedures for the back can be considered. Discussion Notes I discussed with the patient that while her appointment was for knee pain, she also requested trigger point injections for her upper back. After examining her and identifying trigger points in the trapezius, rhomboids, and suboccipital muscles, I agreed to proceed with the injections. We also discussed her use of prednisone for pain, and I strongly advised against this, explaining it is dangerous. I clarified that any procedure for her low back cannot be performed today and would require an X-ray beforehand. Patient Instructions - Do not take prednisone for your pain, as this can be dangerous. - Before any procedure can be done for your back, you will need to have an X-ray. - Please follow up as needed for your symptoms. Coding Level of Care Code Est Pt Level 4 (65293) Diagnoses Myofascial muscle pain M79.18 Knee pain, right M25.561 CPT Codes Coding - 43903 Large joint: 58658 - Large joint ([id number]) Details - Trigger Point Multiple: - Trigger point injection =/>3 ([id number])
[2025-09-28 09:59] VITALS: BP 168/88; PULSE 93; RESP 16; O2SAT 97; BMI 37.8
== END 2025-09-28 10:48 | disposition home or self-care (01) ==
LOC: HO.PMC 09:50
PROVIDERS: PCP Internal Medicine; Visit Provider Internal Medicine
DX: M79.18 Myalgia, other site (principal); M25.561 Pain in right knee
CPT/HCPCS: 20553; 20610; 99214

== ENCOUNTER → 2025-09-28 09:49 | Outpatient (BNVA) | payer OTHER, SELFPAY | PROVIDERS: PCP Internal Medicine; Visit Provider Internal Medicine | DX: M25.561 Pain in right knee (principal); M79.18 Myalgia, other site; M48.061 Spinal stenosis, lumbar region without neurogenic claudication | CPT/HCPCS: 20553; 20610; 99212 ==